=== PATIENT | female | born 2000 | race Caucasian/White ===

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

== ENCOUNTER 2021-01-07 21:30 | Inpatient (IN) | payer MEDICAID, SELFPAY ==
[2021-01-07] VITALS (7 sets, daily range): BP systolic 143–161; BP diastolic 89–92; PULSE 98–114; TEMP 36.9–37.3; O2SAT 93–97; BMI 32.8
[2021-01-07 21:29] LABS: ROM Internal Control Test YES-OK TO RESULT pt. (Internal QC)
[2021-01-07 21:31] LABS: ROM Patient Test POSITIVE (Negative)
[2021-01-07] MEDS: Lactated Ringers 1,000 ML 50 ML IV (22:00)
[2021-01-07 22:25] LABS: Absolute Lymphocyte Count 1.52 X10^3/uL (0.83-4.51); Absolute Neutrophil Count 5.5 X10^3/uL (2.0-7.7); Basophil# 0.02 X10^3/uL; Basophil% 0.3 % (0-1); Eosinophil# 0.28 X10^3/uL; Eosinophils% 3.5 % (0-5); Hemoglobin 11.3 g/dL (12.0-15.0); Lymphocyte # 1.52 X10^3/ul (0.83-4.51); Lymphocyte % 19.1 % (19-41); Mean Corp Hgb Conc 33.2 g/dL (32-36); Mean Corpuscular Hgb 28.2 pg (27.0-32.0); Mean Corpuscular Volume 84.8 fL (81-99); Mean Platelet Vol. 13.3 fl (6.2-12.0); Monocyte# 0.67 X10^3/uL; Monocyte% 8.4 % (0-10); NRBC Flagged by Analyzer 0 % (0-5); Neutrophil # 5.46 X10^3/uL (2.7-7.7); Neutrophil % 68.4 % (47-70); Platelet Count 176 K/mm3 (150-450); RBC Distribution Width SD 43.2 fl (35.1-43.9); Red Blood Count 4.01 M/mm3 (4.2-5.4)
[2021-01-07 22:42] LABS: AST(SGOT) 21 U/L (15-37); Alanine Aminotransfer ALT/SGPT 17 U/L (13-56); Creatinine, Serum 0.66 mg/dL (0.55-1.02); EST Glomerular Filtration Rate 122 mL/min (>60); Est Glom Filt Rate - Afr Amer 148 mL/min (>60); Estimated Creatinine Clearance 123.37 ml/min
[2021-01-07 22:43] LABS: ALB/GLOB Ratio 0.6 RATIO (0.9-2.4); AST(SGOT) 19 U/L (15-37); Alanine Aminotransfer ALT/SGPT 19 U/L (13-56); Albumin, Serum 2.7 g/dL (3.2-5.0); Alkaline Phosphatase 269 U/L (45-117); Anion Gap 7 (5-15); BUN 10 mg/dL (7-18); BUN/Creat Ratio 15.1 RATIO (10-20); Calcium,Total 9.6 mg/dL (8.5-10.1); Chloride 107 mmol/L (98-107); Creatinine, Serum 0.66 mg/dL (0.55-1.02); EST Glomerular Filtration Rate 121 mL/min (>60); Est Glom Filt Rate - Afr Amer 146 mL/min (>60); Estimated Creatinine Clearance 123.37 ml/min; Globulin 4.7 g/dL (2.2-4.2); Glucose 104 mg/dL (74-106); Potassium 3.8 mmol/L (3.5-5.1); Protein, Total 7.4 g/dL (6.4-8.2); Sodium Level 135 mmol/L (136-145)
[2021-01-07] MEDS: Oxytocin 30 units/NS 500 ml 30 UNITS/500 ML IV.SOLN IV (23:21)
[2021-01-08] VITALS (46 sets, daily range): BP systolic 123–162; BP diastolic 61–101; PULSE 85–133; RESP 16–18; TEMP 36.6–37.4; O2SAT 93–100
[2021-01-08] MEDS: Lactated Ringers 500 ML 999 ML IV ×2 (00:03→03:02)
[2021-01-08 00:04] LABS: Protein, Urine (Random) 58.2 mg/dL (<11.9); Protein:Creat Ratio 928 mg/g CRE (0-200)
[2021-01-08] MEDS: fentaNYL-bupivacaine (epidural) 100 ML BAG EPIDURAL (00:41)
[2021-01-08] MEDS: Lactated Ringers 1,000 ML 200 ML IV (06:04)
[2021-01-08] MEDS: Oxytocin 30 units/NS 500 ml 30 UNITS/500 ML IV.SOLN 334 UNITS IV (06:08)
--- NOTE | 2021-01-08 06:20 | PCM.HP.OB ---
HPI - General General Date of Admission: 01/07/21 HPI Narrative DARREL PHILLIPS, is a 20 F who presents at 38w5d. Spontaneous rupture of membranes at home on 01/07/21 at 10am. Originally thought it was mucous plug and then trickle throughout the day. Presented to labor and delivery 01/07/21 at 2045. Maternal Data Information KIARA Calculator Estimated Delivery Date Method Current WG Current Estimate 01/17/21 Manual 38w 5d Final KIARA Source: LMP PFSH PFSH Home Medications PNV [id number]-3-fish oil 1 ea PO DAILY 11/10/18 [History Last Taken 01/07/21 10:00] cephalexin 500 mg PO Q12 #14 capsule 06/04/20 [Rx Last Taken Unknown] Allergy/AdvReac Type Severity Reaction Status Date / Time No Known Allergies Allergy Verified 01/07/21 21:15 Social History Smoking Status: Former smoker History Elective abortions Hx Para 1 Spontaneous abortions Hx # Term Pregnancies Ectopic pregnancies Hx # Pregnancies Multiple births # of living children Vital Signs Vital Signs Vital Signs: 01/07/21 20:54 01/07/21 21:10 01/07/21 22:42 Temperature 99.1 F Temperature Source Temporal Pulse Rate 114 H 98 112 H Blood Pressure 143/89 H 144/92 H 161/89 H BP Systolic 143 144 161 BP Diastolic 89 92 89 Pulse Ox 97 01/07/21 22:58 01/07/21 22:59 01/07/21 23:00 Temperature 98.4 F 98.4 F Temperature Source Temporal Pulse Rate 106 H 106 H 102 H Blood Pressure 143/92 H BP Systolic 143 BP Diastolic 92 Pulse Ox 93 97 01/07/21 23:16 01/08/21 00:18 01/08/21 00:23 Temperature 98.4 F Temperature Source Pulse Rate 100 118 H 121 H Blood Pressure 149/89 H BP Systolic 149 BP Diastolic 89 Pulse Ox 98 98 01/08/21 00:26 01/08/21 00:28 01/08/21 00:30 Temperature Temperature Source Pulse Rate 125 H 116 H 118 H Blood Pressure 162/101 H 158/96 H BP Systolic 162 158 BP Diastolic 101 96 Pulse Ox 93 01/08/21 00:33 01/08/21 00:35 01/08/21 00:38 Temperature Temperature Source Pulse Rate 114 H 102 H 113 H Blood Pressure 162/92 H BP Systolic 162 BP Diastolic 92 Pulse Ox 100 99 01/08/21 00:42 01/08/21 00:43 01/08/21 00:45 Temperature Temperature Source Pulse Rate 96 114 H 109 H Blood Pressure 137/72 H 135/69 H BP Systolic 137 135 BP Diastolic 72 69 Pulse Ox 96 01/08/21 00:48 01/08/21 00:49 01/08/21 00:53 Temperature Temperature Source Pulse Rate 111 H 111 H 110 H Blood Pressure 123/61 H BP Systolic 123 BP Diastolic 61 Pulse Ox 96 97 01/08/21 00:55 01/08/21 00:58 01/08/21 01:01 Temperature Temperature Source Pulse Rate 111 H 110 H 111 H Blood Pressure 126/67 H 125/69 H BP Systolic 126 125 BP Diastolic 67 69 Pulse Ox 97 01/08/21 01:03 01/08/21 01:04 01/08/21 02:06 Temperature 97.9 F Temperature Source Temporal Pulse Rate 110 H 110 H 127 H Blood Pressure 130/70 H 137/79 H BP Systolic 130 137 BP Diastolic 70 79 Pulse Ox 97 01/08/21 02:13 01/08/21 02:18 01/08/21 02:22 Temperature Temperature Source Pulse Rate 104 H 97 100 Blood Pressure 136/79 H 138/73 H 130/70 H BP Systolic 136 138 130 BP Diastolic 79 73 70 Pulse Ox 01/08/21 02:28 01/08/21 03:32 01/08/21 03:33 Temperature 98.2 F Temperature Source Pulse Rate 85 103 H Blood Pressure 126/61 H 128/80 H BP Systolic 126 128 BP Diastolic 61 80 Pulse Ox 01/08/21 05:02 01/08/21 05:03 01/08/21 06:19 Temperature 99.3 F H Temperature Source Pulse Rate 130 H 133 H 126 H Blood Pressure 134/71 H 145/82 H BP Systolic 134 145 BP Diastolic 71 82 Pulse Ox 96 Weight Weight: 197 lb 1.6 oz Body Mass Index (BMI) 32.8 Physical Exam Narrative 10 cm/100%/0 station upon arrival. vertex. Clear fluid Labs Labs Labs: Blood Type A POSITIVE Antibody Screen NEGATIVE Hct 34.0 % (37-47) L Hgb 11.3 g/dL (12.0-15.0) L Rhogam given: No Rubella Immune RPR negative HepB negative HepC negative HIV negative A positive GBS negative GC/CT negative COVID negative Assessment & Plan (1) Teen : (2) Genital warts complicating : (3) PROM (premature rupture of membranes): (4) Preeclampsia: PLAN: 1) Admit to labor and delivery 2) Routine labs 3) BP mildly elevated, preeclampsia labs. PC ratio elevated. 4) PROM at 10am. No contractions upon arrival, pitocin for active management 5) Condyloma present, will cover for delivery 6) GBS and COVID negative 7) collaborative physician and notified of patient status and admission.
--- NOTE | 2021-01-08 06:34 | EX.PCM.OBRPT ---
Assessment & Plan (1) Vaginal delivery: Maternal Data Information KIARA Calculator Estimated Delivery Date Method Current WG Current Estimate 01/17/21 Manual 38w 5d Vaginal Delivery Maternal Presentation Maternal Presentation: Spontaneous Rupture of Membranes Maternal Presentation: PROM on 01/07/21 at 10am, clear fluid. Labor augmentation with Pitocin Operative Information Date of Procedure: 01/08/21 Pre-Operative Diagnosis: PROM Post-Operative Diagnosis: Surgery / Procedure Performed: Spontaneous Vaginal Delivery Type of Anesthesia: Epidural Estimated Blood Loss: 300 ml Time of Delivery: 06:06 Findings Description of Procedure: Progressed to complete dilation with strong urge to push. Epidural for pain management. of viable male over intact perineum. APGARS 8,9. Infant head delivered with body immediately forthcoming. Infant placed on maternal abdomen, strong cry. Mouth and nares suctioned for secretions. Pitocin started for active 3rd stage management. Placenta delivered intact via shutlz, 3 vessel cord with maternal effort. Perineum inspected and revealed intact. Vaginal sweep completed by me. Sponge and instrument count correct. Mom and baby stable, family bonding well. Presentation: DEBO (LOT) Amniotic Membrane Rupture Type: Spontaneous Time of Membrane Rupture: 01/07/21 at 10am Amniotic Fluid Description: Clear Placental Delivery Description: Spontaneous Placenta Disposition: [facility] Cord Vessel Description: 3 Vessels Cord Entanglement: None Infant A Gender: Male (1 minute): 8 (5 minute): 9 Delayed Cord Clamping: Yes Post Vaginal Delivery Medications Given After Delivery: IV Pitocin Episiotomy Description: None Laceration: None Complication Complications: None
[2021-01-08] MEDS: 0.9% Saline Lock 10 ML Syringe IV ×2 (08:40→16:26)
[2021-01-08 17:27] LABS: Hematocrit 34.1 % (37-47); Hemoglobin 11.4 g/dL (12.0-15.0); Mean Corp Hgb Conc 33.4 g/dL (32-36); Mean Corpuscular Hgb 28.5 pg (27.0-32.0); Mean Corpuscular Volume 85.3 fL (81-99); Mean Platelet Vol. 12.9 fl (6.2-12.0); POSITIVE MORPHOLOGY YES; Platelet Count 165 K/mm3 (150-450); RBC Distribution Width CV 14.4 % (11.6-14.6); RBC Distribution Width SD 44.6 fl (35.1-43.9); White Blood Count 14.5 K/mm3 (4.4-11.0)
[2021-01-08 17:36] LABS: Scan Indicated on CBC? Y/N YES- FLAGS NOTED
[2021-01-08] MEDS: Labetalol 200 MG Tablet PO ×2 (17:37→22:53)
[2021-01-08 18:03] LABS: AST(SGOT) 25 U/L (15-37); Alanine Aminotransfer ALT/SGPT 18 U/L (13-56); Creatinine, Serum 0.66 mg/dL (0.55-1.02); EST Glomerular Filtration Rate 122 mL/min (>60); Est Glom Filt Rate - Afr Amer 147 mL/min (>60); Estimated Creatinine Clearance 123.37 ml/min; Uric Acid 5.8 mg/dL (2.6-6.0)
[2021-01-08 18:06] LABS: Differential Comment SCANNED
[2021-01-08] MEDS: Ibuprofen 600 MG Tablet PO (20:52)
[2021-01-08] MEDS: Acetaminophen 500 MG Tablet 1000 MG PO (22:52)
[2021-01-09 03:15] VITALS: BP 131/77; PULSE 84; RESP 16; TEMP 36.2; O2SAT 96
[2021-01-09 05:54] VITALS: PULSE 96; O2SAT 96
[2021-01-09] MEDS: Labetalol 200 MG Tablet PO ×3 (05:55→22:53)
[2021-01-09 06:09] LABS: Hematocrit 31.4 % (37-47); Hemoglobin 10.1 g/dL (12.0-15.0); Mean Corp Hgb Conc 32.2 g/dL (32-36); Mean Corpuscular Hgb 28.2 pg (27.0-32.0); Mean Corpuscular Volume 87.7 fL (81-99); Mean Platelet Vol. 12.8 fl (6.2-12.0); Platelet Count 132 K/mm3 (150-450); RBC Distribution Width CV 14.6 % (11.6-14.6); RBC Distribution Width SD 46.4 fl (35.1-43.9); Red Blood Count 3.58 M/mm3 (4.2-5.4); White Blood Count 8.7 K/mm3 (4.4-11.0)
--- NOTE | 2021-01-09 07:25 | NURSING ---
This RN reviewed all charting by student nurse Anamaria Aguilar.
--- NOTE | 2021-01-09 07:30 | PCM.PN.OB ---
Subjective Subjective Patient seen at bedside. Denies pain. Denies any headache, vision changes or RUQ pain. Ambulating and voiding without difficulty. Lochia decreasing. Bottle feeding. Objective Data Objective Data Vital Signs: Vital Signs Temp Pulse Resp BP Pulse Ox 97.2 F L 96 16 131/77 H 96 01/09/21 03:15 01/09/21 05:54 01/09/21 03:15 01/09/21 03:15 01/09/21 05:54 Oxygen Delivery Method Room Air Weight: 197 lb 1.6 oz Body Mass Index (BMI) 32.8 Intake & Output: Intake and Output for Last 24 Hours 01/07/21 01/08/21 01/09/21 23:59 23:59 23:59 Intake Total 2559.30 / 2559.30 Output Total 550 / 550 Balance / Lab / Micro Data Result Diagrams: 01/09/21 06:00 01/08/21 17:15 Labs: Laboratory Results - last 24 hr 01/08/21 17:15: WBC 14.5 H, RBC 4.00 L, Hgb 11.4 L, Hct 34.1 L, MCV 85.3, MCH 28.5, MCHC 33.4, RDW Std Deviation 44.6 H, RDW Coeff of Gregory 14.4, Plt Count 165, MPV 12.9 H, Differential Comment SCANNED 01/08/21 17:15: Creatinine 0.66, Estim Creat Clear Calc 123.37, Est GFR (MDRD) Af Amer 147, Est GFR (MDRD) Non-Af 122, Uric Acid 5.8, AST 25, ALT 18 01/09/21 06:00: WBC 8.7, RBC 3.58 L, Hgb 10.1 L, Hct 31.4 L, MCV 87.7, MCH 28.2, MCHC 32.2, RDW Std Deviation 46.4 H, RDW Coeff of Gregory 14.6, Plt Count 132 L, MPV 12.8 H Micro: Microbiology 01/07/21 22:42 Nasal Secretion SARS-CoV-2 Antigen (Rapid) - Final ROS Eyes Eyes: Denies blurry vision, change in vision or spots in vision ENT HEENT: Denies dizziness or headache(s) Cardiovascular Cardiovascular: Denies abdominal pain, chest pain or dyspnea Respiratory/Chest Respiratory/Chest: Denies cough, dyspnea, shortness of breath at rest or shortness of breath with exertion Gastrointestinal Gastrointestinal: Denies abdominal pain, diarrhea or vomiting Genitourinary Genitourinary: Denies change in urinary stream, difficulty urinating or dysuria Musculoskeletal Musculoskeletal: Reports none Integumentary Integumentary: Denies rash Neurologic Neurologic: Denies dizziness, headache(s), memory loss or weakness Physical Exam Const alert and no apparent distress General Appearance: cooperative and comfortable Exam Limitations: no limitations HEENT normocephalic Eyes General Eye: normal appearance of both eyes Neck full ROM General: normal visual inspection Chest Chest: symmetrical chest wall rise Resp normal respiratory effort and normal air movement Effort and Inspection: symmetric chest movement Auscultation: clear to auscultation bilaterally Cardio regular rate and regular rhythm GI normal to inspection, nondistended, normoactive bowel sounds Back/Spine normal ROM Extremity full ROM and no calf tenderness General Extremity: normal exam except as noted Skin no rashes or lesions noted Neuro CN's II-XII intact bilaterally Psych mental status grossly normal Assessment & Plan (1) Vaginal delivery: (2) Preeclampsia: QUALIFIERS: Trimester: third trimester Qualified Code(s): O14.93 - Unspecified pre-eclampsia, third trimester PLAN: PPD 1 Pain control Routine care Continues to have elevated blood pressures-patient asymptomatic PIH labs normal Continue Labetalol 200 mg PO TID Anticipate discharge home tomorrow
[2021-01-09 08:00] VITALS: BP 120/65; PULSE 85; RESP 18; TEMP 36.3
--- NOTE | 2021-01-09 14:10 | CASEMGMT ---
Social Work Assessment Labor and Delivery Unit Patient Address: [address] [place] [id number] Phone number: [phone] Date of Referral:01.07.2021 Time of Referral: 2350 Referred By: Elvira Guillory CNM Date of Intervention: 01.09.2021 Time of Intervention: 1410 Reason for Referral: Limited support, 3 year old at home, resources History obtained from: Medical records and mother of baby (MOB) Staci Price Household composition: MOB, father of baby (FOB) Pollo Alfredo, and their older child are in an apartment. Plan to take to this home. Patient's parent/guardian status: MOB is a 20 year old single female, involved with FOB who is a 24 year old male, together for 3 years. MOB denies any form of abuse in this relationship. MOB and FOB now have 2 children together: Beresherron Alfredo, born 11.11.2018; [place] Emile Alfredo, born 01.08.2021. Medical History: MOB is G3. P1 to 2 after delivering Emile. care started at 8 weeks and regular thereafter. Maternal history of genital warts at delivery. Infant delivered at 38.5 weeks, weighing 7 pounds 13 ounces, and apgars 8 and 9 at 1 and 5 minutes of life. Educational Status: 10th grade. No reported issues with reading, writing, or learning comprehension. 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 FOB works at [employer]. Supplies: MOB reports to have all needed infant supplies including crib, bassinet, car seat, clothing, diapers, wipes, bottles, and formula. Childcare/Caregiver(s): MOB and FOB; FOB's grandmother will babysit when parents are working. Transportation: MOB does not have a fence post driver's license. Relies on FOB. Denies any issues at this time, but reports goal to get license in the future. Programs/Agencies Involved: MOB reports to have medical and food assistance through [employer]. Active with WIC. Working with [email or web address]. Goes to a moms group through [facility]. No other agency involvement reported. Declines referrals to [facility] or [facility]. Children Services/Legal Issues: Reports [facility] followed with family for a week or two after daughter was born, due to MOB being a minor, FOB over age, and MOB living away from her parental home. MOB reports the case was closed quickly after agency was able to see that all needs were being met. No reported legal issues. Behavioral Health Issues: Mental Health History: Denies history of depression, anxiety, or mood and anxiety issues. Denies any HI or SI history. Substance Use History: Denies any substance use history. Former smoker. Was vaping but quit after finding out about . Family History: MOB reports her father has history of Bipolar disorder and depression. Drug Screens: Maternal screens negative on 06.07.2020 and 10.25.2020. Family/Social Stressors: No reported stressors. Support Systems: Reports FOB, FOB's grandmother, FOB's cousin Anya (is reported best friend of MOB), MOB's father who lives in [place], and even MOB's mom who lives in [place] are people MOB identifies can be helpful in some way. Depression/Shaken Baby/Safe Sleeping: Educated to topics and provided written information for home going. ASSESSMENT: Met with MOB in room, introducing to self and social work role. MOB holding baby, pleasant, cooperative, good eye contact, and talkative. MOB reports to fee home situation is adequate and that FOB is helpful. Reports to feel support system is also adequate, to have people MOB can call for both practical and emotional support when needed. Reports will have help from family at home going. Reports to feel a connection to the baby and to have necessary supplies. MOB declines additional referrals for parent support, such as [facility] or [facility], but accepted resource lists in case changes mind in the future. Educated to PPD and PPA, risk factors and importance of seeking out help should symptoms arise. MOB denies any worries about mood or anxiety at this time. No voiced on concerns by nursing staff regarding parent/child interactions or bonding. PLAN: Provided resource information for home going. MOB and baby to discharge home when ready. No other services requested or indicated. -ANGELIQUE Ng MSW *This note was generated with [employer] software. It may contain incorrect words, spelling, and punctuation that were not noted in review of the chart prior to signing*
[2021-01-09 14:14] VITALS: BP 140/90; PULSE 90; RESP 15; TEMP 36.4
[2021-01-09] MEDS: Ibuprofen 600 MG Tablet PO (17:32)
[2021-01-09 20:55] VITALS: BP 136/82; PULSE 80; RESP 18; TEMP 36.6
[2021-01-10 02:28] VITALS: BP 102/55; PULSE 104; RESP 18; TEMP 36.4
[2021-01-10] MEDS: Labetalol 200 MG Tablet PO (06:11)
[2021-01-10 08:23] VITALS: BP 124/70; PULSE 85; RESP 16; TEMP 36.2; O2SAT 97
--- NOTE | 2021-01-10 08:38 | PCM.PN.OB ---
Subjective Subjective Feels well & denies complaints Objective Data Objective Data Vital Signs: Vital Signs Temp Pulse Resp BP Pulse Ox 97.2 F L 85 16 124/70 H 97 01/10/21 08:23 01/10/21 08:23 01/10/21 08:23 01/10/21 08:23 01/10/21 08:23 Oxygen Delivery Method Room Air Weight: 197 lb 1.6 oz Body Mass Index (BMI) 32.8 Intake & Output: Intake and Output for Last 24 Hours 01/08/21 01/09/21 01/10/21 23:59 23:59 23:59 Intake Total 2559.30 / 2559.30 Output Total 550 / 550 Balance Lab / Micro Data Result Diagrams: 01/09/21 06:00 01/08/21 17:15 Micro: Microbiology 01/07/21 22:42 Nasal Secretion SARS-CoV-2 Antigen (Rapid) - Final Physical Exam Const alert, oriented x3 and no apparent distress HEENT normocephalic GI soft to palpation, non-tender and non-distended GI Narrative: fundus firm, mid & below umbilicus Extremity normal to inspection and no calf tenderness Assessment & Plan (1) Preeclampsia: QUALIFIERS: Trimester: third trimester Qualified Code(s): O14.93 - Unspecified pre-eclampsia, third trimester COMMENT: PPD#2 PLAN: Preeclampsia - BP's normal to minimally elevated at labetalol 200mg tid. Patient to follow-up Thursday for BP check. Reviewed preE precautions. D/c home
--- NOTE | 2021-01-10 08:40 | PCM.DC ---
Discharge Instructions Diet Discharge Diet: No restrictions Activity Discharge Activity: May Shower May resume sexual activity in: 6 weeks Weight Bearing Status: Weight bearing as tolerated Dressing / Incision Call your doctor if you observe: Fever of 101 or Higher, Coldness, Increased Pain, Change in Color, Inability to urinate, Inability to have a bowel movement, Using more than 1 pad per hour, Shortness of breath, Dizziness, Fainting spells, Chest pain, Increased palpitations (irregular heartbeat), Calf discomfort and Uncontrolled pain Follow Up Care Please Follow Up With: Elvira Guillory CNM When: Follow up Thursday for an in office BP check. Follow up in 2 and 6 weeks for visits. Test Results: Test results from this visit will be discussed in further detail at your follow-up appointment, if applicable. Discharge Plan Admission Admit Date/Time: 01/07/21 21:30 Primary Reason for Your Visit: Vaginal delivery Attending Provider: Elvira Guillory Primary Care Provider: Care Physician,Kassi Primary Discharge Orders/Prescriptions Prescriptions: New labetalol 200 mg Tablet 200 mg PO TID Qty: 60 RF: 0 acetaminophen 500 mg Tablet 1,000 mg PO Q6H PRN PRN (Reason: Pain 1-10 Or Fever) Qty: 0 RF: 0 ibuprofen 600 mg Tablet 600 mg PO Q6H PRN PRN (Reason: Pain Score 1-3) Qty: 0 RF: 0 Continued PNV [id number]-3-fish oil 1 EACH tablet,chewable 1 ea PO DAILY RF: 0 Discontinued cephalexin 500 MG capsule 500 mg PO Q12 Qty: 14 RF: 0 Referrals / Follow Up: Care Physician,No Primary [Primary Care Provider] - Disposition Disposition (needs filled in before D/C Order can be placed): Home, Self Care
--- NOTE | 2021-01-10 14:37 | NURSING ---
OOS student nurse's charting reviewed by instructor and used for clinical and learning purposes only
== END 2021-01-10 10:45 | disposition home or self-care (01) | DRG 560 ==
LOC: WPOUT 21:34 → WP 21:34
PROVIDERS: Advanced Practice Midwife; Admitting Provider Advanced Practice Midwife; Referring Provider Advanced Practice Midwife; Visit Provider Advanced Practice Midwife
DX: O42.90 Premature rupture of membranes, unspecified as to length of time between rupture and onset of labor, unspecified weeks of gestation (principal); Z3A.38 38 weeks gestation of pregnancy; Z37.0 Single live birth; O98.32 Other infections with a predominantly sexual mode of transmission complicating childbirth; A63.0 Anogenital (venereal) warts; O14.94 Unspecified pre-eclampsia, complicating childbirth; Z87.891 Personal history of nicotine dependence
CPT/HCPCS: 59025; 59050; 80053; 82565; 82570; 84112; 84156; 84450; 84460; 84550; 85025; 85027; 86850; 86900; 86901; 87426; 99218; J7120; A4216; G0378

== ENCOUNTER 2021-05-28 13:20 | Emergency (ER) | payer MEDICAID, SELFPAY ==
[2021-05-28 13:21] VITALS: BP 157/90; PULSE 117; RESP 18; TEMP 36.4; O2SAT 99; BMI 27.7
--- NOTE | 2021-05-28 13:31 | US_ITS ---
STUDY: FIRST TRIMESTER OBSTETRICAL ULTRASOUND REASON FOR EXAM: Female, 21 years old . Vaginal bleeding. LMP: 04/15/2021. TECHNIQUE: Transvaginal TECHNICAL QUALITY: Adequate. PRIOR ULTRASOUND: None. FINDINGS: There is no demonstrated intrauterine gestational sac. There is no demonstrated yolk sac. The placenta is non-visualized. There is no demonstrated embryo ( pole). The estimated gestation age (EGA) by LMP is 6 weeks, 1 days. The estimated date of delivery (KIARA) by LMP is 01/20/2022. The uterus measures 8.8 cm x 6.2 cm x 4.1 cm. There is no demonstrated uterine fibroid. The cervix is closed. The right ovary measures 4.1 cm x 1.7 cm x 2.3 cm. There is no right ovarian cyst. There is no visualized right adnexal mass or complex lesion. The left ovary measures 2 cm x 2.1 cm x 2.2 cm. There is no left ovarian cyst. There is no visualized left adnexal mass or complex lesion. There is no fluid in the cul de sac. US/Transvaginal w/Preg US IMPRESSION: No intrauterine gestation is seen. Correlation with beta hCG values recommended. Electronically Signed: Danilo Guevara MD at 14:38 EDT ,
--- NOTE | 2021-05-28 13:34 | ED.VIS.FEGU ---
HPI HPI - Female History of Present Illness Chief Complaint: Vag Bleeding Detail of Chief Complaint: Vaginal bleeding Informant: patient Associated Symptoms Test: Positive Narrative Narrative: Patient presents to the emergency department complaint of vaginal bleeding that started last evening. Patient states that she passed some tissues last evening and thinks she may have had a miscarriage. Patient still having some vaginal bleeding today and describes it as mild like a menstrual period. Patient is G3, P2. Last menstrual period was April 15. Patient had home test that was positive on May 22 x2. Patient denies any dysuria, hematuria, or fever. Patient has not had any care with this . [facility] Medical History Preeclampsia Home Medications NK 05/28/21 [History Last Taken Unknown] Allergy/AdvReac Type Severity Reaction Status Date / Time No Known Allergies Allergy Verified 05/28/21 13:23 Social History Smoking Status: Current every day smoker tobacco type: cigarettes ROS ROS ED Constitutional Constitutional ED: Reports systems reviewed and no addt'l complaints, except as documented; Denies body ache(s), change in weight or chills Eyes Eyes: Denies acute decrease in peripheral vision, change in vision, double vision or loss of vision ENT ENT ED: Reports none; Denies ear pain, lip swelling, loss taste/smell, neck pain, otalgia or sore throat Cardiovascular Cardiovascular: Reports none; Denies abdominal pain, chest pain with activity, leg edema, lightheadedness, palpitations, rapid heart rate or syncope Respiratory/Chest Respiratory/Chest: Reports none; Denies change in mental status, dry cough, dyspnea, hemoptysis, shortness of breath at rest or shortness of breath with exertion Gastrointestinal Gastrointestinal: Reports none; Denies abdominal pain, change in stool character, diarrhea, hematemesis, hematochezia, melena, rectal bleeding or vomiting Genitourinary Genitourinary ED: Reports none and other Details: Vaginal bleeding ; Denies abdominal discomfort, anuria, dysuria, genital pain or polyuria Musculoskeletal Musculoskeletal: Reports none; Denies arthralgias, back pain, difficulty walking, extremity pain, muscle weakness or myalgias Integumentary Reports none; Denies abscess or rash Neurologic Neurologic: Reports none; Denies abnormal gait, confusion, focal weakness, frequent falls, headache(s), loss of vision, numbness, paresthesias, radicular pain, vertigo or weakness Psychiatric Psychiatric: Reports systems reviewed and no addt'l complaints, except as documented and none; Denies behavioral changes, confusion, difficulty concentrating, hallucinations, suicidal ideation, tactile hallucinations or visual hallucinations Endocrine Endocrinology: Denies none, cold intolerance, excessive sweating, fatigue or heat intolerance Hematologic/Lymphatic Hematologic/Lymphatic: Reports none; Denies anemia, easy bleeding or easy bruising Allergic/Immunologic Allergic/Immunologic ED: Denies as per HPI, none, lip swelling, mouth swelling, throat swelling, tongue swelling or hives EXAM Physical Exam Const Vital Signs: 05/28/21 13:21 Temperature 97.5 F L Temperature Source Temporal Pulse Rate 117 H Respiratory Rate 18 Blood Pressure 157/90 H Blood Pressure Mean 112 Pulse Ox 99 Oxygen Delivery Method Room Air Positive well nourished and well developed General Appearance ED: well developed and NAD HEENT Reports TM's clear and moist mucous membranes normocephalic and atraumatic; Negative for trauma or tenderness Tympanic Membrane ED: Yes TM's clear Eyes PERRL and EOMs intact bilaterally General Eye ED: Negative for pale conjunctiva or scleral icterus Neck no lymphadenopathy, supple and no JVD General: Negative for tenderness Chest Wall inspection of chest normal and palpation of chest normal Chest: Negative for tenderness Resp normal respiratory effort and clear to auscultation bilaterally Effort and Inspection: Negative for respiratory distress or pain with movement Auscultation: Negative for rhonchi, wheezes or diminished lung sounds Cardio regular rate, regular rhythm, S1 normal heart sound, S2 normal heart sound and no murmurs Rate: tachycardic Peripheral Pulses: pulses 2+ throughout GI normal to inspection, nondistended, normoactive bowel sounds, soft to palpation, non-tender, non-distended and no masses GI Narrative: Normoactive bowel sounds. No tenderness on exam of the abdomen or pelvis. There is no rebound, rigidity, or peritoneal signs. No masses palpated. Back/Spine no CVA tenderness and no thoracic nor lumbar tenderness Extremity normal to inspection General Extremety ED: Negative for edema General Extremity: Negative for edema Neuro oriented x3, CN's II-XII intact bilaterally, no sensory deficits noted and gait normal Sensorium / Orientation: awake, alert, oriented to person, oriented to place and oriented to time Motor Exam: strength 5/5 throughout and strength abnormal Psych mental status grossly normal Skin no rashes or lesions noted and no wounds MDM MDM MDM Narrative Medical decision making narrative: IV line established on arrival. Patient's quant is only 46. Blood type is a positive. Patient had a pelvic ultrasound that showed no evidence of intrauterine or any acute disease process. At this point I suspect likely patient miscarrying. She did pass some tissue yesterday at home. I will discussed with BOAT DESIGNER on-call to ensure close follow-up and repeat quant in 2 days. Patient advised to return if persistent heavy bleeding, severe abdominal pain, or condition should worsen anyway. Lab Data Attestation: I reviewed the patient's lab results. Labs: Laboratory Results - last 24 hr 05/28/21 05/28/21 05/28/21 13:45 13:45 13:45 WBC 6.9 RBC 4.89 Hgb 14.3 Hct 42.5 MCV 86.9 MCH 29.2 MCHC 33.6 RDW Std Deviation 42.4 RDW Coeff of Gregory 13.4 Plt Count 170 MPV 12.7 H Immature Gran % (Auto) 0.100 Neut % (Auto) 63.7 Lymph % (Auto) 22.6 [place] % (Auto) 7.1 Eos % (Auto) 5.8 H Baso % (Auto) 0.7 Absolute Neuts (auto) 4.4 Absolute Lymphs (auto) 1.56 Nucleated RBC % 0 HCG, Quant 46 H Blood Type A POSITIVE Radiography Diagnostic Testing: Clinical Impression(s) from Imaging Studies Obstetrics Ultrasound 05/28/21 13:31 IMPRESSION: No intrauterine gestation is seen. Correlation with beta hCG values recommended. Electronically Signed: Danilo Guevara MD at 14:38 EDT , Discharge Plan Triage Chief Complaint: Vag Bleeding ED Provider: Gaetano Boyer Dx/Rx/DC Orders Instructions: ED Possible Miscarriage ... Prescriptions: No Action NK RF: 0 Primary Care Provider: Care Physician,No Primary Referrals: Berlin Madison MD [STAFF PHYSICIAN] - 2 Days Care Physician,No Primary [Primary Care Provider] - Disposition Disposition: Home, Self Care
[2021-05-28] MEDS: 0.9% Normal Saline 1,000 ML 1000 ML IV (13:48)
[2021-05-28 14:01] LABS: Absolute Lymphocyte Count 1.56 X10^3/uL (0.83-4.51); Absolute Neutrophil Count 4.4 X10^3/uL (2.0-7.7); Basophil# 0.05 X10^3/uL; Basophil% 0.7 % (0-1); Eosinophils% 5.8 % (0-5); Hematocrit 42.5 % (37-47); Hemoglobin 14.3 g/dL (12.0-15.0); Lymphocyte # 1.56 X10^3/ul (0.83-4.51); Lymphocyte % 22.6 % (19-41); Mean Corp Hgb Conc 33.6 g/dL (32-36); Mean Corpuscular Hgb 29.2 pg (27.0-32.0); Mean Corpuscular Volume 86.9 fL (81-99); Mean Platelet Vol. 12.7 fl (6.2-12.0); Monocyte# 0.49 X10^3/uL; Monocyte% 7.1 % (0-10); NRBC Flagged by Analyzer 0 % (0-5); Neutrophil % 63.7 % (47-70); Platelet Count 170 K/mm3 (150-450); RBC Distribution Width CV 13.4 % (11.6-14.6); RBC Distribution Width SD 42.4 fl (35.1-43.9); Red Blood Count 4.89 M/mm3 (4.2-5.4); White Blood Count 6.9 K/mm3 (4.4-11.0)
[2021-05-28 14:31] LABS: hCG Titer Quant., Serum 46 mIU/mL (1-3)
[2021-05-28 15:04] VITALS: BP 117/72; PULSE 77; RESP 14; O2SAT 98
== END 2021-05-28 15:05 | disposition home or self-care (01) ==
PROVIDERS: Emergency Provider Emergency Medicine; Visit Provider Emergency Medicine
DX: N93.9 Abnormal uterine and vaginal bleeding, unspecified (principal); F17.210 Nicotine dependence, cigarettes, uncomplicated
CPT/HCPCS: 76817; 84702; 85025; 86900; 86901; 96360; 99283; J7030; A4216

== ENCOUNTER 2022-02-10 20:43 | Outpatient (CLI) | payer MEDICAID, SELFPAY ==
[2022-02-10 20:51] VITALS: BMI 28.4
[2022-02-10 20:52] VITALS: BP 143/95; PULSE 116; TEMP 37.3; O2SAT 98
[2022-02-10 21:01] VITALS: O2SAT 97
[2022-02-10 21:02] VITALS: PULSE 104
[2022-02-10 21:49] LABS: Absolute Lymphocyte Count 3.15 X10^3/uL (0.83-4.51); Absolute Neutrophil Count 8.3 X10^3/uL (2.0-7.7); Basophil# 0.03 X10^3/uL; Basophil% 0.2 % (0-1); Eosinophil# 0.31 X10^3/uL; Eosinophils% 2.5 % (0-5); Hematocrit 39.8 % (37-47); Hemoglobin 13.2 g/dL (12.0-15.0); Lymphocyte # 3.15 X10^3/ul (0.83-4.51); Lymphocyte % 25.2 % (19-41); Mean Corp Hgb Conc 33.2 g/dL (32-36); Mean Corpuscular Hgb 29.5 pg (27.0-32.0); Monocyte# 0.66 X10^3/uL; Monocyte% 5.3 % (0-10); NRBC Flagged by Analyzer 0 % (0-5); Neutrophil # 8.25 X10^3/uL (2.7-7.7); Neutrophil % 66.2 % (47-70); Platelet Count 278 K/mm3 (150-450); RBC Distribution Width CV 12.3 % (11.6-14.6); RBC Distribution Width SD 40.7 fl (35.1-43.9); Red Blood Count 4.47 M/mm3 (4.2-5.4); White Blood Count 12.5 K/mm3 (4.4-11.0)
[2022-02-10 22:00] LABS: Partial Thromboplast Time 25.1 Seconds (24.1-36.2)
[2022-02-10 22:13] LABS: Fibrinogen 516 mg/dl (203-444); Prothrombin Time (Protime)PT. 13.3 SECONDS (11.7-14.9)
[2022-02-10 22:22] LABS: ALB/GLOB Ratio 0.7 RATIO (0.9-2.4); AST(SGOT) 18 U/L (15-37); Alanine Aminotransfer ALT/SGPT 22 U/L (13-56); Albumin, Serum 3.3 g/dL (3.2-5.0); Alkaline Phosphatase 110 U/L (45-117); Amylase 67 U/L (25-115); Anion Gap 5 (5-15); BUN 11 mg/dL (7-18); BUN/Creat Ratio 12.7 RATIO (10-20); Calcium,Total 9.9 mg/dL (8.5-10.1); Chloride 106 mmol/L (98-107); Creatinine, Serum 0.87 mg/dL (0.55-1.02); EST Glomerular Filtration Rate 88 mL/min (>60); Est Glom Filt Rate - Afr Amer 106 mL/min (>60); Estimated Creatinine Clearance 92.82 ml/min; Glucose 98 mg/dL (74-106); Lipase 131 U/L (73-393); Potassium 3.6 mmol/L (3.5-5.1); Protein, Total 8.3 g/dL (6.4-8.2); Sodium Level 137 mmol/L (136-145)
--- NOTE | 2022-02-12 12:05 | OB.TRI.NOTE ---
HPI - General General Date of Admission: 02/10/22 Date of Service: 02/10/22 Chief Complaint: abd pain in Maternal Data Information KIARA Calculator Estimated Delivery Date Method Current WG Current Estimate 01/17/21 Manual 95w 6d [facility] Medical History (Updated 02/12/22 @ 12:[address] Alma Galan MD) Preeclampsia Home Medications aspirin 81 mg chewable tablet 81 mg PO DAILY see provider 02/10/22 [History Last Taken 02/10/22 08:00] Allergy/AdvReac Type Severity Reaction Status Date / Time No Known Allergies Allergy Verified 02/10/22 20:53 Social History Smoking Status: Current every day smoker tobacco type: cigarettes History Elective abortions Hx Para 1 Spontaneous abortions Hx # Term Pregnancies Ectopic pregnancies Hx # Pregnancies Multiple births # of living children NST FHR Rate Baby A Baseline: 140 Variability:: Moderate Accelerations:: 10 x 10 Decelerations:: None NST Reactive:: Appropriate for gestational age FHR Category:: Category I Uterine Activity:: quiet Assessment & Plan (1) High risk multigravida in third trimester: PLAN: No evidence of Pres in labor. Suspect pain is musculoskeletal or GI in etiology. Follow-up in the office as scheduled or as needed. May use heat, ice, Tylenol or antacids as needed. No evidence of preeclampsia. If recurs may need gallbladder evaluation as outpatient (2) Abdominal pain affecting : (3) 29 weeks gestation of :
== END 2022-02-10 22:32 | disposition home or self-care (01) ==
LOC: WPOUT 20:50 → WP 20:51
PROVIDERS: Visit Provider Obstetrics & Gynecology
DX: O99.891 Other specified diseases and conditions complicating pregnancy (principal); O09.623 Supervision of young multigravida, third trimester; O99.333 Smoking (tobacco) complicating pregnancy, third trimester; R10.9 Unspecified abdominal pain; F17.210 Nicotine dependence, cigarettes, uncomplicated; Z79.82 Long term (current) use of aspirin
CPT/HCPCS: 36415; 59025; 59050; 80053; 82150; 83690; 85025; 85384; 85610; 85730; 99218; G0378

== ENCOUNTER 2022-03-27 03:00 | Outpatient (CLI) | payer MEDICAID, SELFPAY ==
[2022-03-27 03:08] VITALS: BP 140/78; PULSE 105; TEMP 37.2
[2022-03-27 03:18] VITALS: BMI 28.3
[2022-03-27 03:24] VITALS: BP 127/76; PULSE 100
[2022-03-27 03:38] VITALS: BP 131/78; PULSE 90
--- NOTE | 2022-03-27 03:50 | OB.TRI.NOTE ---
HPI - General General Date of Service: 03/27/22 Chief Complaint: contractions HPI Narrative DARREL PHILLIPS, is a 21 F @ 35.4 weeks who presents c.o contraction since 2:20 am- arrived by ambulance. denies VB, LOF, reports good FM. pt reports since arriving contractions have improved. Maternal Data Information KIARA Calculator Estimated Delivery Date Method Current WG Current Estimate 01/17/21 Manual 102w 0d PFSH PFSH Medical History (Updated 03/27/22 @ 03:[address] Yumiko Webb MD) Preeclampsia Home Medications aspirin 81 mg chewable tablet 81 mg PO DAILY see provider 02/10/22 [History Last Taken 03/25/22 12:30 1 tab] Allergy/AdvReac Type Severity Reaction Status Date / Time No Known Allergies Allergy Verified 03/27/22 03:24 Social History Smoking Status: Current every day smoker tobacco type: cigarettes History Elective abortions Hx Para 1 Spontaneous abortions Hx # Term Pregnancies Ectopic pregnancies Hx # Pregnancies Multiple births # of living children Physical Exam Narrative abd: soft, gravid, non tender Const alert and oriented x3 NST FHR Rate Baby A Baseline: 135 Variability:: Moderate Accelerations:: 15 x 15 NST Reactive:: Yes FHR Category:: Category I Uterine Activity:: irregular Assessment & Plan (1) 35 weeks gestation of : (2) contractions: PLAN: Plan G5P 2 @ 35 weeks with contractions 1) urine to be sent to r/o UTI 2) signs of labor and when to return to L&D reviewed 3) Cervical exam by RN performed- closed 4) will dc home after urine results
[2022-03-27 04:00] VITALS: BP 130/60; PULSE 96
[2022-03-27 04:07] LABS: Color, Urine Yellow (Yellow); Glucose, Dipstick Normal (Normal); Ketone-Dipstick Negative (Negative); Leukocyte Esterase-Dipstick Negative /ul (Negative); Nitrite-Dipstick Negative (Negative); Occult Blood-Urine Negative /ul (Negative); Protein-Dipstick Negative (Negative); Specific Gravity, Urine 1.015 (1.002-1.030); Urine Bilirubin Dipstick Negative (Negative); Urine Clarity Clear (Clear); Urine Urobilinogen Normal (Normal)
[2022-03-27 04:15] VITALS: BP 118/58; PULSE 88
[2022-03-27 12:46] VITALS: BP 133/82; PULSE 69
== END 2022-03-27 04:55 | disposition home or self-care (01) ==
LOC: WPOUT 03:04 → WP 03:05
PROVIDERS: Visit Provider Obstetrics & Gynecology
DX: O09.893 Supervision of other high risk pregnancies, third trimester (principal); O99.333 Smoking (tobacco) complicating pregnancy, third trimester; Z79.82 Long term (current) use of aspirin; Z3A.35 35 weeks gestation of pregnancy; F17.210 Nicotine dependence, cigarettes, uncomplicated
CPT/HCPCS: 59025; 59050; 81002; 87086; 87088; 99221; G0378

== ENCOUNTER 2022-04-22 07:10 | Inpatient (IN) | payer MEDICAID, SELFPAY ==
[2022-04-22] VITALS (33 sets, daily range): BP systolic 101–143; BP diastolic 54–91; PULSE 84–170; TEMP 36.8–37.7; O2SAT 97–100; BMI 31.0
--- NOTE | 2022-04-22 08:01 | PCM.HP.OB ---
HPI - General General Date of Admission: 04/22/22 HPI Narrative DARREL PHILLIPS, is a 21 F who presents at 39w2d for elective IOL. . Yesterday presented to office for insertion of Dilapan S outpatient cervical ripening. Contractions overnight but not regular and able to sleep. complicated by history of preeclampsia and bacteriuria in . Maternal Data Information KIARA Calculator Estimated Delivery Date Method Current WG Current Estimate 04/27/22 Manual 39w 3d 39w2d upon admission [facility] Medical History (Updated 04/23/22 @ 08:23 by Elvira Guillory CNM) Asthma Preeclampsia Home Medications acetaminophen 500 mg tablet 1,000 mg PO Q6H PRN PRN Pain 1-10 Or Fever #0 tabs 04/23/22 [Rx Last Taken Unknown] ibuprofen 600 mg tablet 600 mg PO Q6H PRN PRN Pain Score 1-3 #30 tabs 04/23/22 [Rx Last Taken Unknown] Allergy/AdvReac Type Severity Reaction Status Date / Time No Known Allergies Allergy Verified 04/22/22 07:22 Social History Smoking Status: Current some day smoker tobacco type: cigarettes History Elective abortions Hx Para 2 Spontaneous abortions Hx # Term Pregnancies Ectopic pregnancies Hx # Pregnancies Multiple births # of living children NST FHR Rate Baby A Baseline: 145 Variability:: Moderate Accelerations:: 15 x 15 Decelerations:: None FHR Category:: Category I Uterine Activity:: Irregular Vital Signs Vital Signs Vital Signs: 04/22/22 07:40 04/22/22 07:40 04/22/22 07:40 Temperature Temperature Source Temporal Pulse Rate 92 Blood Pressure 136/83 H BP Systolic 136 BP Diastolic 83 04/22/22 07:40 Temperature 99.1 F Temperature Source Pulse Rate Blood Pressure BP Systolic BP Diastolic Weight Weight: 186 lb 11.704 oz Body Mass Index (BMI) 31.0 Physical Exam Narrative 5 dilapan-S rods removed without difficulty in one piece all together. Patient tolerated well. Const alert and oriented x3 General Appearance: cooperative Orientation / Consciousness: awake, oriented to person, oriented to place and oriented to time Exam Limitations: no limitations HEENT normocephalic Head and Scalp: normal to inspection, normocephalic and atraumatic Face and Sinus: normal facial exam Eyes General Eye: normal appearance of both eyes Neck full ROM Chest Chest: symmetrical chest wall rise Resp normal respiratory effort and normal air movement Auscultation: clear to auscultation bilaterally Cardio regular rate, regular rhythm, S1 normal heart sound, S2 normal heart sound, no murmurs, no rub, no gallops and no clicks GI normal to inspection, nondistended, normoactive bowel sounds and non-tender appearance of the vagina normal Narrative: 4.5cm/70%/-2 Bladder / Kidney Exam: no CVA tenderness Back/Spine normal ROM Extremity normal to inspection and full ROM Skin no rashes or lesions noted Neuro oriented x3, CN's II-XII intact bilaterally and moves all extremities Sensorium / Orientation: awake, alert and oriented to person Motor Exam: clonus absent Deep Tendon Reflexes: Rt Patellar (L4): 2+ and Lt Patellar (L4): 2+ Labs Labs Labs: Blood Type A POSITIVE Antibody Screen NEGATIVE Hct 34.0 % (37-47) L Hgb 11.5 g/dL (12.0-15.0) L Obstetrics US Rhogam given: No GBS negative HIV negative HBsAG negative Hep C negative RPR negative Rubella Immune A positive GC/CT negative Assessment & Plan (1) Encounter for elective induction of labor: (2) 39 weeks gestation of : (3) Genital warts: PLAN: Plan 1) Admit to labor and delivery 2) Routine labs 3) Continuous EFM 4) Epidural for pain management 5) Outpatient cervical ripening with Dilapan S, all 5 rods moved without difficulty 6) collaborative physician
[2022-04-22] MEDS: Lactated Ringers 1,000 ML 100 ML IV ×2 (08:10→13:46)
[2022-04-22 08:21] LABS: Absolute Lymphocyte Count 1.84 X10^3/uL (0.83-4.51); Absolute Neutrophil Count 9.2 X10^3/uL (2.0-7.7); Basophil# 0.05 X10^3/uL; Basophil% 0.4 % (0-1); Eosinophils% 3.3 % (0-5); Hemoglobin 11.5 g/dL (12.0-15.0); Lymphocyte # 1.84 X10^3/ul (0.83-4.51); Lymphocyte % 15.1 % (19-41); Mean Corp Hgb Conc 33.8 g/dL (32-36); Mean Corpuscular Hgb 28.1 pg (27.0-32.0); Mean Corpuscular Volume 83.1 fL (81-99); Mean Platelet Vol. 11.9 fl (6.2-12.0); Monocyte# 0.63 X10^3/uL; Monocyte% 5.2 % (0-10); NRBC Flagged by Analyzer 0 % (0-5); Neutrophil # 9.22 X10^3/uL (2.7-7.7); Neutrophil % 75.5 % (47-70); Platelet Count 223 K/mm3 (150-450); RBC Distribution Width CV 13.6 % (11.6-14.6); RBC Distribution Width SD 40.7 fl (35.1-43.9); Red Blood Count 4.09 M/mm3 (4.2-5.4); White Blood Count 12.2 K/mm3 (4.4-11.0)
[2022-04-22] MEDS: Oxytocin 15 Units/NS 250ml 15 UNITS/250 ML IV.SOLN 2 UNITS IV (08:44)
[2022-04-22] MEDS: LACTATED RINGERS 500 ML 999 ML IV (12:30)
[2022-04-22] MEDS: fentaNYL-bupivacaine (epidural) 100 ML BAG EPIDURAL (13:46)
--- NOTE | 2022-04-22 18:04 | EX.PCM.OBRPT ---
Assessment & Plan (1) Vaginal delivery: Maternal Data Information KIARA Calculator Estimated Delivery Date Method Current WG Current Estimate 04/27/22 Manual 39w 2d Vaginal Delivery Maternal Presentation Maternal Presentation: Elective Induction Type of Induction: - (cervical ripening with DilapanS outpatient. Pitocin for Induction) Operative Information Date of Procedure: 04/22/22 Pre-Operative Diagnosis: Elective Induction of Labor Post-Operative Diagnosis: Surgery / Procedure Performed: Spontaneous Vaginal Delivery Type of Anesthesia: Epidural Estimated Blood Loss: 200 ml Time of Delivery: 17:46 Findings Description of Procedure: Progressed to complete with urge to push. Epidural for pain management. of viable female infant over intact perineum. APGARS 8,9 respectively. Infant head delivered with body immediately forthcoming. Placed on maternal abdomen, strong cry. Mouth and nares suctioned for secretions. Pitocin started for active 3rd stage management. Cord doubly clamped and cut by FOB after pulsations ceased, delayed cord clamping. Placenta delivered intact via stevie, 3 vessel cord intact. Perineum inspected and intact. Fundus firm and hemostasis achieved. EBL 200ml. Mom and baby stable, planning to breastfeed. Family bonding well. notified of delivery. Presentation: Vertex and JOSH Amniotic Membrane Rupture Type: Artificial Amniotic Fluid Description: Clear Placental Delivery Description: Expressed Placenta Disposition: [facility] Cord Vessel Description: 3 Vessels Cord Entanglement: None Infant A Gender: Female (1 minute): 8 (5 minute): 9 Delayed Cord Clamping: Yes Post Vaginal Delivery Medications Given After Delivery: IV Pitocin Episiotomy Description: None Laceration: None Complication Complications: None
[2022-04-23 00:50] VITALS: BP 114/55; PULSE 107; RESP 18
[2022-04-23] MEDS: Ibuprofen 600 MG Tablet PO ×2 (03:35→09:17)
[2022-04-23 05:06] VITALS: BP 132/99; PULSE 91; RESP 18
[2022-04-23] MEDS: Acetaminophen 500 MG Tablet 1000 MG PO (05:10)
--- NOTE | 2022-04-23 08:02 | PN.OBGYN_ITS ---
Subjective Subjective Doing well per patient and nursing staff. Ambulating and taking PO without difficulty. Voiding and passing flatus. Pain controlled. , services for assistance. Denies headache, visual changes, chest pain, shortness of breath, leg pain or increased bleeding. Lochia normal. Objective Data Objective Data Vital Signs: Vital Signs Temp Pulse Resp BP Pulse Ox O2 Del Method 99.3 F H 91 18 132/99 H 100 Room Air 04/22/22 19:14 04/23/22 05:06 04/23/22 05:06 04/23/22 05:06 04/22/22 15:59 04/23/22 05:06 Oxygen Delivery Method Room Air Weight: 186 lb 11.704 oz Body Mass Index (BMI) 31.0 Intake & Output: Intake and Output for Last 24 Hours 04/21/22 04/22/22 04/23/22 23:59 23:59 23:59 Intake Total 1722.33 / 1722.33 Output Total 700 / 700 600 / 600 Balance 1022.33 / 1022.33 -600 / -600 Lab / Micro Data Result Diagrams: 04/22/22 08:10 Labs: Laboratory Results - last 24 hr 04/22/22 08:10: WBC 12.2 H, RBC 4.09 L, Hgb 11.5 L, Hct 34.0 L, MCV 83.1, MCH 28.1, MCHC 33.8, RDW Std Deviation 40.7, RDW Coeff of Gregory 13.6, Plt Count 223, M PV 11.9, Immature Gran % (Auto) 0.500, Neut % (Auto) 75.5 H, Lymph % (Auto) 15.1 L, [place] % (Auto) 5.2, Eos % (Auto) 3.3, Baso % (Auto) 0.4, Absolute Neuts (auto) 9.2 H, Absolute Lymphs (auto) 1.84, Nucleated RBC % 0 04/22/22 08:10: Blood Type A POSITIVE, Antibody Screen NEGATIVE ROS Constitutional Constitutional: Reports systems reviewed and no addt'l complaints, except as documented; Denies headache(s) Eyes Eyes: Denies acute decrease in peripheral vision, blurry vision or change in vision ENT HEENT: Reports systems reviewed and no addt'l complaints, except as documented Cardiovascular Cardiovascular: Denies chest pain or dizziness Respiratory/Chest Respiratory/Chest: Denies cough, dyspnea, dyspnea on exertion, shortness of breath at rest or shortness of breath with exertion Gastrointestinal Gastrointestinal: Denies abdominal pain, diarrhea, nausea or vomiting Genitourinary Genitourinary: Denies abdominal discomfort Musculoskeletal Musculoskeletal: Denies limited range of motion Integumentary Integumentary: Reports systems reviewed and no addt'l complaints, except as documented Neurologic Neurologic: Reports systems reviewed and no addt'l complaints, except as documented Psychiatric Psychiatric: Reports systems reviewed and no addt'l complaints, except as documented Endocrine Endocrinology: Reports systems reviewed and no addt'l complaints, except as documented Hematologic/Lymphatic Hematologic/Lymphatic: Reports systems reviewed and no addt'l complaints, except as documented Allergic/Immunologic Allergic/Immunologic: Reports systems reviewed and no addt'l complaints, except as documented Physical Exam Const alert and oriented x3 General Appearance: cooperative Orientation / Consciousness: awake, oriented to person, oriented to place and oriented to time Exam Limitations: no limitations HEENT normocephalic Head and Scalp: normal to inspection, normocephalic and atraumatic Face and Sinus: normal facial exam Eyes General Eye: normal appearance of both eyes Neck full ROM Chest Chest: symmetrical chest wall rise Resp normal respiratory effort and normal air movement Auscultation: clear to auscultation bilaterally Cardio regular rate, regular rhythm, S1 normal heart sound, S2 normal heart sound, no murmurs, no rub, no gallops and no clicks GI normal to inspection, nondistended, normoactive bowel sounds and non-tender appearance of the vagina normal Narrative: Fundus firm 2 below U Bladder / Kidney Exam: no CVA tenderness Back/Spine normal ROM Extremity normal to inspection and full ROM Skin no rashes or lesions noted Neuro oriented x3, CN's II-XII intact bilaterally and moves all extremities Sensorium / Orientation: awake, alert and oriented to person Motor Exam: clonus absent Deep Tendon Reflexes: Rt Patellar (L4): 2+ and Lt Patellar (L4): 2+ Assessment & Plan (1) Vaginal delivery: PLAN: Plan 1) Routine PP care 2) Pain management 3) Vitals stable 4) Would like D/C home today 5) Follow up in 2 weeks and 6 weeks
--- NOTE | 2022-04-23 08:10 | DS.PCM_ITS ---
Providers Date of Admission: 04/22/22 Primary Care Physician: Kassi Primary Care Phys Reason For Visit: VAG DELIVERY Diagnosis Discharge Diagnosis (1) Vaginal delivery: Status: Acute Code(s): O80 - Encounter for full-term uncomplicated delivery Plan 1) Routine PP care 2) Pain management 3) Vitals stable 4) Would like D/C home today 5) Follow up in 2 weeks and 6 weeks Medications at Discharge Home Medications acetaminophen 500 mg tablet 1,000 mg PO Q6H PRN PRN Pain 1-10 Or Fever #0 tabs 04/23/22 ibuprofen 600 mg tablet 600 mg PO Q6H PRN PRN Pain Score 1-3 #30 tabs 04/23/22 Weight / BMI Weight Weight: 186 lb 11.704 oz Body Mass Index (BMI) 31.0 ABG / Lab / Microbiology Data Result Diagrams: 04/22/22 08:10 Laboratory: Laboratory Results - last 24 hr 04/22/22 08:10: WBC 12.2 H, RBC 4.09 L, Hgb 11.5 L, Hct 34.0 L, MCV 83.1, MCH 28.1, MCHC 33.8, RDW Std Deviation 40.7, RDW Coeff of Gregory 13.6, Plt Count 223, MPV 11.9, Immature Gran % (Auto) 0.500, Neut % (Auto) 75.5 H, Lymph % (Auto) 15.1 L, [place] % (Auto) 5.2, Eos % (Auto) 3.3, Baso % (Auto) 0.4, Absolute Neuts (auto) 9.2 H, Absolute Lymphs (auto) 1.84, Nucleated RBC % 0 04/22/22 08:10: Blood Type A POSITIVE, Antibody Screen NEGATIVE Meaningful Use Info Meaningful Use Diagnoses (Choose all that apply): None applicable Discharge Plan Admission Admit Date/Time: 04/22/22 07:10 Primary Reason for Your Visit: vaginal delivery Attending Provider: Elvira Guillory Primary Care Provider: Care Physician,No Primary Instructions Patient Instructions: After a Vaginal Discharge Orders/Prescriptions Prescriptions: New acetaminophen 500 mg Tablet 1,000 mg PO Q6H PRN PRN (Reason: Pain 1-10 Or Fever) Qty: 0 0RF ibuprofen 600 mg Tablet 600 mg PO Q6H PRN PRN (Reason: Pain Score 1-3) Qty: 30 0RF Referrals / Follow Up: Care Physician,No Primary [Primary Care Provider] - Disposition Disposition (needs filled in before D/C Order can be placed): Home, Self Care
[2022-04-23 08:17] VITALS: BP 120/66; PULSE 93; RESP 14; TEMP 36.7; O2SAT 97
[2022-04-23 11:12] VITALS: BP 124/74; PULSE 82; RESP 14; TEMP 36.9; O2SAT 96
[2022-04-23 15:40] VITALS: BP 132/84; PULSE 76; RESP 16; TEMP 36.8; O2SAT 97
== END 2022-04-23 19:20 | disposition home or self-care (01) | DRG 560 ==
PROVIDERS: Admitting Provider Advanced Practice Midwife; Referring Provider Advanced Practice Midwife; Visit Provider Advanced Practice Midwife
DX: O99.334 Smoking (tobacco) complicating childbirth (principal); Z37.0 Single live birth; O98.32 Other infections with a predominantly sexual mode of transmission complicating childbirth; F17.210 Nicotine dependence, cigarettes, uncomplicated; Z3A.39 39 weeks gestation of pregnancy; A63.0 Anogenital (venereal) warts
CPT/HCPCS: 59025; 59050; 85025; 86850; 86900; 86901; 99221; J7120; G0378

== ENCOUNTER 2022-05-27 13:02 | Emergency (ER) | payer MEDICAID, SELFPAY ==
[2022-05-27 13:03] VITALS: BP 131/66; PULSE 64; RESP 18; TEMP 36.3; O2SAT 100; BMI 29.7
--- NOTE | 2022-05-27 13:18 | RAD_ITS ---
STUDY: X-RAY CHEST REASON FOR EXAM: Female, 22 years old. cp TECHNIQUE: Single AP portable view of the chest. COMPARISON: None. FINDINGS: EKG electrodes are seen. The lungs are clear and expanded. There is no demonstrated pleural abnormality. Normal size heart. Normal mediastinum and clare. Normal visualized pulmonary arteries. Normal visualized aortic arch and descending thoracic aorta. Normal visualized thoracic spine. Normal visualized ribs, clavicles, and shoulders. There is no demonstrated abnormality of the visualized soft tissue structures of the upper abdomen. RAD/Chest 1 View (Portable) IMPRESSION: Normal x-ray examination of the chest. Electronically Signed: Danilo Guevara MD at 14:03 EDT ,
--- NOTE | 2022-05-27 13:20 | EDS_ITS ---
HPI History of Present Illness Chief Complaint: Chest Pain Narrative Narrative: Chief complaint says chest pain, patient has more like epigastric pain that started a little over an hour ago. She has no pleuritic component, she is no difficulty breathing. No back pain or tearing sensation. She has no recent fevers or chills. No leg pain or calf pain, no lower extremity edema. [facility] Medical History (Updated 05/27/22 @ 13:[address] Barrett Byrne MD) Asthma Preeclampsia Home Medications acetaminophen 500 mg tablet 1,000 mg PO Q6H PRN PRN Pain 1-10 Or Fever #0 tabs 04/23/22 [Rx Last Taken Unknown] ibuprofen 600 mg tablet 600 mg PO Q6H PRN PRN Pain Score 1-3 #30 tabs 04/23/22 [Rx Last Taken Unknown] omeprazole 40 mg capsule,delayed release 40 mg PO DAILY #30 caps 05/27/22 [Rx Last Taken Unknown] Allergy/AdvReac Type Severity Reaction Status Date / Time No Known Allergies Allergy Verified 05/27/22 13:03 Social History Smoking Status: Current some day smoker tobacco type: e-cigarettes ROS ROS ED ROS Narrative Past medical history: Reviewed Medications: Reviewed Social history: Noncontributory Review of systems: All systems negative except as indicated General: No fever Eyes: No visual changes ENT: No upper airway congestion, normal voice Neck: No neck pain Cardiovascular: Mostly epigastric pain Respiratory: No shortness of breath or cough Gastrointestinal: As in HPI Genitourinary: No dysuria Musculoskeletal: Denies myalgias no difficulty with ambulation Skin: No rash Neurological: No memory loss, confusion or any focal weakness Psych: No recent behavioral changes Hematologic: No easy bleeding or easy bruising EXAM Physical Exam Narrative Exam Narrative: Physical exam General: Well nourished, Well developed, No Acute Distress Head: Normocephalic, Atraumatic Eyes: Conjunctiva not pale ENT: Moist mucous membranes Neck: Supple, Nontender, No lymphadenopathy Cardiovascular: Regular rate, Regular rhythm Respiratory: No distress, CTA bilaterally Abdomen: Soft, mostly epigastric tenderness to palpation. It is reproducible. She has pain under her xiphoid but not specifically in the chest. Back: Nontender, Normal Inspection. Negative for: CVA tenderness Extremities: Nontender, No edema Skin: Normal color, No rash Neurological: Alert, Normal Strength, Normal Sensation Psychological: Normal affect Const Vital Signs: 05/27/22 13:03 Temperature 97.4 F L Temperature Source Temporal Pulse Rate 64 Respiratory Rate 18 Blood Pressure 131/66 H Blood Pressure Mean 87 Pulse Ox 100 Oxygen Delivery Method Room Air [facility] Narrative Medical decision making narrative: A. Problems addressed Patient has epigastric pain, it is close to chest wall region therefore cardiac work-up was done however I treated her for gastritis with a GI cocktail and her pain is now almost gone. There is no signs or systems of cardiac disease on work-up, no signs or symptoms of pneumonia or pneumothorax. She appears well I talked to her and she will be discharged in stable condition B. Amount and/or complexity of the data 1. CBC CMP and troponin were unremarkable and interpreted by me 2. Independent interpretation of test Telemetry: Sinus rhythm with a rate in the 60s and 70s without ectopy C. Patient was seen by me in the emergency department. I have considered the following differential diagnoses however I was able to exclude all of these through a thorough history and physical exam as well as laboratory testing: PE or any thromboembolic etiologies, myocardial infarction, aortic dissection, esophageal rupture, pneumothorax, musculoskeletal emergencies, upper abdominal pathologies such as pancreatitis, cholecystitis or choledocholithiasis, as well as ruptured bowel. Lab Data Labs: Laboratory Results - last 24 hr 05/27/22 13:30 WBC 7.6 RBC 4.86 Hgb 13.2 Hct 41.8 MCV 86.0 MCH 27.2 MCHC 31.6 L RDW Std Deviation 44.4 H RDW Coeff of Gregory 14.3 Plt Count 192 MPV 12.3 H Immature Gran % (Auto) 0.300 Neut % (Auto) 43.7 L Lymph % (Auto) 40.1 [place] % (Auto) 8.2 Eos % (Auto) 7.0 H Baso % (Auto) 0.7 Absolute Neuts (auto) 3.3 Absolute Lymphs (auto) 3.03 Nucleated RBC % 0 Radiography Diagnostic Testing: X-ray read by me is unremarkable EKG Initial EKG: Comments: Sinus rhythm with rate of 67. Normal NV and QTc interval. No ischemic changes. Discharge Plan Triage Chief Complaint: Chest Pain ED Provider: Barrett Byrne Dx/Rx/DC Orders Clinical Impression: Acute epigastric pain, Chest pain Instructions: ED Epigastric Pain Uncertain Cause Prescriptions: New omeprazole 40 mg capsule,delayed release(DR/EC) 40 mg PO DAILY Qty: 30 0RF No Action acetaminophen 500 mg Tablet 1,000 mg PO Q6H PRN PRN (Reason: Pain 1-10 Or Fever) Qty: 0 0RF ibuprofen 600 mg Tablet 600 mg PO Q6H PRN PRN (Reason: Pain Score 1-3) Qty: 30 0RF Primary Care Provider: Care Physician,No Primary Referrals: Care Physician,No Primary [Primary Care Provider] - 3-5 Days Disposition Disposition: Home, Self Care
[2022-05-27 13:38] LABS: Absolute Lymphocyte Count 3.03 X10^3/uL (0.83-4.51); Absolute Neutrophil Count 3.3 X10^3/uL (2.0-7.7); Basophil# 0.05 X10^3/uL; Basophil% 0.7 % (0-1); Eosinophil# 0.53 X10^3/uL; Hematocrit 41.8 % (37-47); Hemoglobin 13.2 g/dL (12.0-15.0); Lymphocyte # 3.03 X10^3/ul (0.83-4.51); Lymphocyte % 40.1 % (19-41); Mean Corp Hgb Conc 31.6 g/dL (32-36); Mean Corpuscular Hgb 27.2 pg (27.0-32.0); Mean Platelet Vol. 12.3 fl (6.2-12.0); Monocyte# 0.62 X10^3/uL; Monocyte% 8.2 % (0-10); NRBC Flagged by Analyzer 0 % (0-5); Neutrophil % 43.7 % (47-70); Platelet Count 192 K/mm3 (150-450); RBC Distribution Width CV 14.3 % (11.6-14.6); RBC Distribution Width SD 44.4 fl (35.1-43.9); Red Blood Count 4.86 M/mm3 (4.2-5.4); White Blood Count 7.6 K/mm3 (4.4-11.0)
[2022-05-27] MEDS: Mag Hydrox/Al Hydrox/Simeth 30 ML UDC PO (13:44)
[2022-05-27 13:58] LABS: ALB/GLOB Ratio 0.8 RATIO (0.9-2.4); AST(SGOT) 50 U/L (15-37); Alanine Aminotransfer ALT/SGPT 40 U/L (13-56); Albumin, Serum 3.5 g/dL (3.2-5.0); Alkaline Phosphatase 98 U/L (45-117); Anion Gap 6 (5-15); BUN 12 mg/dL (7-18); BUN/Creat Ratio 14.6 RATIO (10-20); Calcium,Total 9.2 mg/dL (8.5-10.1); Chloride 110 mmol/L (98-107); Creatinine, Serum 0.82 mg/dL (0.55-1.02); EST Glomerular Filtration Rate 93 mL/min (>60); Est Glom Filt Rate - Afr Amer 113 mL/min (>60); Estimated Creatinine Clearance 93.71 ml/min; Globulin 4.5 g/dL (2.2-4.2); Glucose 97 mg/dL (74-106); Lipase 122 U/L (73-393); Sodium Level 138 mmol/L (136-145); Troponin-I HS < 3 pg/mL (3.0-54.0)
[2022-05-27 14:10] VITALS: BP 134/77; PULSE 62; RESP 15; O2SAT 98
== END 2022-05-27 14:11 | disposition home or self-care (01) ==
PROVIDERS: Emergency Provider Emergency Medicine; Visit Provider Emergency Medicine
DX: R10.13 Epigastric pain (principal); K29.70 Gastritis, unspecified, without bleeding; R07.9 Chest pain, unspecified; F17.290 Nicotine dependence, other tobacco product, uncomplicated; J45.909 Unspecified asthma, uncomplicated
CPT/HCPCS: 71045; 80053; 83690; 84484; 85025; 93005; 99285

== ENCOUNTER 2022-06-28 02:24 | Emergency (ER) | payer MEDICAID, SELFPAY ==
[2022-06-28 02:25] VITALS: BP 112/46; PULSE 75; RESP 18; TEMP 35.9; O2SAT 100; BMI 29.5
[2022-06-28 02:56] LABS: Absolute Neutrophil Count 5.7 X10^3/uL (2.0-7.7); Basophil# 0.07 X10^3/uL; Basophil% 0.6 % (0-1); Eosinophil# 0.69 X10^3/uL; Eosinophils% 5.7 % (0-5); Hematocrit 37.8 % (37-47); Hemoglobin 12.3 g/dL (12.0-15.0); Lymphocyte % 38.7 % (19-41); Mean Corp Hgb Conc 32.5 g/dL (32-36); Mean Corpuscular Hgb 27.3 pg (27.0-32.0); Mean Platelet Vol. 11.8 fl (6.2-12.0); Monocyte# 0.98 X10^3/uL; Monocyte% 8.1 % (0-10); NRBC Flagged by Analyzer 0 % (0-5); Neutrophil # 5.67 X10^3/uL (2.7-7.7); Neutrophil % 46.6 % (47-70); Platelet Count 276 K/mm3 (150-450); RBC Distribution Width CV 15.2 % (11.6-14.6); RBC Distribution Width SD 46.3 fl (35.1-43.9); White Blood Count 12.2 K/mm3 (4.4-11.0)
[2022-06-28] MEDS: 0.9% Normal Saline 1,000 ML 999 ML IV (02:56)
[2022-06-28] MEDS: Ondansetron 4 MG/2 ML Vial IV (02:56)
[2022-06-28] MEDS: Famotidine 200 MG/20 ML MDV 20 MG in 0.9% Normal Saline (Pres. free 8 ML 300 MG IV (02:58)
[2022-06-28] MEDS: Mag Hydrox/Al Hydrox/Simeth 30 ML UDC PO (02:59)
[2022-06-28 03:11] LABS: Internal QC Validated? YES +Cl - CLEAR BKGD; Pregnancy, Serum, hCG Quali. NEGATIVE Negative
[2022-06-28 03:25] LABS: AST(SGOT) 35 U/L (15-37); Alanine Aminotransfer ALT/SGPT 36 U/L (13-56); Albumin, Serum 3.7 g/dL (3.2-5.0); Alkaline Phosphatase 103 U/L (45-117); Anion Gap 3 (5-15); BUN 13 mg/dL (7-18); BUN/Creat Ratio 13.9 RATIO (10-20); Bilirubin, Direct 0.13 mg/dL (0.00-0.30); Calcium,Total 9.2 mg/dL (8.5-10.1); Chloride 109 mmol/L (98-107); Creatinine, Serum 0.94 mg/dL (0.55-1.02); EST Glomerular Filtration Rate 80 mL/min (>60); Est Glom Filt Rate - Afr Amer 97 mL/min (>60); Estimated Creatinine Clearance 85.19 ml/min; Globulin 3.8 g/dL (2.2-4.2); Glucose 135 mg/dL (74-106); Lipase 43 U/L (13-75); Potassium 3.4 mmol/L (3.5-5.1); Protein, Total 7.5 g/dL (6.4-8.2); Sodium Level 138 mmol/L (136-145)
--- NOTE | 2022-06-28 03:56 | EX.ED.DYSGE1 ---
HPI History of Present Illness Chief Complaint: Abd Pain Narrative Narrative: Patient is a 22-year-old female who states she has had intermittent upper abdominal pain since giving roughly 3 months ago. She states she has not followed up or seen anyone secondary to this. She states that this evening she went out to dinner with her family at a [place] restaurant. She states she did not think much of this but as she was sleeping she developed upper abdominal pain with bouts of nausea. She states symptoms were not improving at home and with concern for underlying infection she called EMS and was brought in for evaluation [facility] Medical History Asthma Preeclampsia Home Medications famotidine 20 mg tablet (Pepcid) 20 mg PO BID #60 tabs 06/28/22 [Rx Last Taken Unknown] sucralfate 1 gram tablet (Carafate) 1 g PO BID #60 tabs 06/28/22 [Rx Last Taken Unknown] Allergy/AdvReac Type Severity Reaction Status Date / Time No Known Allergies Allergy Verified 06/28/22 02:28 Social History Smoking Status: Current some day smoker tobacco type: e-cigarettes ROS ROS ED Constitutional Constitutional ED: Denies chills or fever(s) ENT ENT ED: Denies sore throat Cardiovascular Cardiovascular: Denies chest pain Respiratory/Chest Respiratory/Chest: Denies cough or dyspnea Gastrointestinal Gastrointestinal: Reports abdominal pain and nausea; Denies diarrhea or vomiting Genitourinary Genitourinary ED: Denies dysuria Musculoskeletal Musculoskeletal: Denies myalgias Integumentary Denies rash Neurologic Neurologic: Denies headache(s) Hematologic/Lymphatic Hematologic/Lymphatic: Denies easy bleeding or easy bruising EXAM Physical Exam Const Vital Signs: 06/28/22 02:25 Temperature 96.6 F L Temperature Source Temporal Pulse Rate 75 Respiratory Rate 18 Blood Pressure 112/46 L Blood Pressure Mean 68 Pulse Ox 100 Oxygen Delivery Method Room Air Positive well nourished and well developed General Appearance ED: well developed HEENT Reports moist mucous membranes HEENT Narrative: No signs of infection in the posterior pharynx no airway edema or compromise Eyes PERRL and EOMs intact bilaterally General Eye ED: Negative for scleral icterus Neck supple Resp normal respiratory effort and clear to auscultation bilaterally Cardio regular rate and regular rhythm Rate: other Other Details: Radial pulses are plus 2 out of 4 bilaterally are equal and symmetric GI non-distended GI Narrative: Abdomen is soft and nondistended with normal active bowel sounds. There is pain with palpation in the midepigastric region without voluntary guarding or rigidity. No pulsatile mass or fluid wave. Negative [place] sign Auscultation: normoactive bowel sounds Palpation: soft Back/Spine no CVA tenderness Extremity normal to inspection Neuro oriented x3 and CN's II-XII intact bilaterally Sensorium / Orientation: alert Psych mental status grossly normal Skin no rashes or lesions noted General Skin Exam: Negative for jaundice MDM MDM MDM Narrative Medical decision making narrative: Patient presented to the ER with stable vitals and a soft nonsurgical abdomen and therefore I felt no need for emergent imaging or laboratory studies. The differential includes biliary colic colitis viral gastroenteritis ileus or gastritis. Based on the pain beginning after eating [place] and the fact has been recurrent for multiple months I do feel this is most likely gastritis. Patient's white count is slightly elevated at 12 but chart review reveals she is typically elevated and I do not feel there is need for imaging study based on the slight elevation as it is most likely stress response. The remainder of her labs show no signs of acute kidney injury and a normal lipase going against pancreatitis and no signs of severe dehydration or DKA. Patient was given a GI cocktail as well as Pepcid Zofran IV fluids and reported improvement of her symptoms. On reevaluation abdomen remains soft and nonsurgical. Therefore at this time as symptoms are most consistent with recurrent gastritis but there is no signs of active hemorrhage or obstruction she can be placed on symptomatic medications and discharged home History & Record Review Discussion w/independent historian: Patient Lab Data Attestation: I reviewed the patient's lab results. Labs: Laboratory Results - last 24 hr 06/28/22 06/28/22 06/28/22 02:37 02:37 02:37 WBC 12.2 H RBC 4.50 Hgb 12.3 Hct 37.8 MCV 84.0 MCH 27.3 MCHC 32.5 RDW Std Deviation 46.3 H RDW Coeff of Gregory 15.2 H Plt Count 276 MPV 11.8 Immature Gran % (Auto) 0.300 Neut % (Auto) 46.6 L Lymph % (Auto) 38.7 [place] % (Auto) 8.1 Eos % (Auto) 5.7 H Baso % (Auto) 0.6 Absolute Neuts (auto) 5.7 Absolute Lymphs (auto) 4.70 H Nucleated RBC % 0 Sodium 138 Potassium 3.4 L Chloride 109 H Carbon Dioxide 26.0 Anion Gap 3 L BUN 13 Creatinine 0.94 Estim Creat Clear Calc 85.19 Est GFR (MDRD) Af Amer 97 Est GFR (MDRD) Non-Af 80 BUN/Creatinine Ratio 13.9 Glucose 135 H Calcium 9.2 Total Bilirubin 0.20 Direct Bilirubin 0.13 AST 35 ALT 36 Alkaline Phosphatase 103 Total Protein 7.5 Albumin 3.7 Globulin 3.8 Lipase 43 Serum , Qual NEGATIVE Discharge Plan Triage Chief Complaint: Abd Pain ED Provider: Kenton Smith Dx/Rx/DC Orders Clinical Impression: Gastritis Instructions: ED Gastritis (Adult) Prescriptions: New famotidine [Pepcid] 20 mg tablet 20 mg PO BID Qty: 60 2RF sucralfate [Carafate] 1 gram tablet 1 g PO BID Qty: 60 1RF Primary Care Provider: Care Physician,No Primary Referrals: Jaimee Ochoa MD [Med Staff - [facility]] - Care Physician,No Primary [Primary Care Provider] - Disposition Disposition: Home, Self Care
[2022-06-28 04:10] VITALS: PULSE 74; RESP 18; O2SAT 96
== END 2022-06-28 04:13 | disposition home or self-care (01) ==
PROVIDERS: Emergency Provider Emergency Medicine; Visit Provider Emergency Medicine
DX: K29.70 Gastritis, unspecified, without bleeding (principal); F17.290 Nicotine dependence, other tobacco product, uncomplicated
CPT/HCPCS: 80048; 80076; 83690; 84703; 85025; 96365; 96375; 99284; J7030; J2405; J3490

== ENCOUNTER 2022-07-20 01:45 | Emergency (ER) | payer MEDICAID, SELFPAY ==
[2022-07-20 01:46] VITALS: BP 156/79; PULSE 96; RESP 18; TEMP 36.7; O2SAT 97; BMI 31.6
--- NOTE | 2022-07-20 02:00 | EDS_ITS ---
HPI HPI - GI History of Present Illness Chief Complaint: Abd Pain Informant: patient Abdominal Pain/Flank Pain Onset: Hours Context: Gradual Onset Timing: Continuous Quality: Aching, Burning and Dull Location: Epigastric Current Severity: Moderate Maximum Severity: Moderate Worsened by: Nothing Relieved by: Nothing Nausea/Vomiting/Emesis GI Symptom: Negative for Nausea or Vomiting Diarrhea/Melena/Hematochezia GI Symptom: Negative for Diarrhea, Melena or Hematochezia Associated Symptoms Associated Symptoms: Negative for Dysuria, Frequency or Hematuria Narrative Narrative: 22-year-old female with past medical history of reflux and asthma. States about 3 hours ago she started having midepigastric abdominal pain. Denies any radiation to her chest or lower abdomen. No nausea, vomiting or diarrhea. No fever or chills. No melena. No weight change. Nothing particular makes it better or worse. She has never had any abdominal surgeries. She has been told in the past this was reflux. She believes something else may be going on. She denies any back pain. Prior similar symptoms: Yes Recent Illness/Hospitalization: No PFSH PFSH Medical History Acid reflux Asthma Preeclampsia Home Medications famotidine 20 mg tablet (Pepcid) 20 mg PO BID #60 tabs 06/28/22 [Rx Last Taken Unknown] sucralfate 1 gram tablet (Carafate) 1 g PO BID #60 tabs 06/28/22 [Rx Last Taken Unknown] pantoprazole 40 mg tablet,delayed release (Protonix) 40 mg PO DAILY #30 tabs 07/20/22 [Rx Last Taken Unknown] Allergy/AdvReac Type Severity Reaction Status Date / Time No Known Allergies Allergy Verified 06/28/22 02:28 Social History Smoking Status: Current some day smoker tobacco type: e-cigarettes ROS ROS ED ROS Narrative Midepigastric abdominal pain. Review of Systems ROS Unobtainable: Denies due to encephalopathy Constitutional Constitutional ED: Denies chills or fever(s) ENT ENT ED: Denies ear pain Cardiovascular Cardiovascular: Denies chest pain Respiratory/Chest Respiratory/Chest: Denies cough Gastrointestinal Gastrointestinal: Reports abdominal pain; Denies constipation, diarrhea, melena, nausea or vomiting Genitourinary Genitourinary ED: Denies dysuria or hematuria Musculoskeletal Musculoskeletal: Denies arthralgias Integumentary Denies abscess Neurologic Neurologic: Denies headache(s) Psychiatric Psychiatric: Denies anxiety Endocrine Endocrinology: Denies polydipsia Hematologic/Lymphatic Hematologic/Lymphatic: Denies easy bleeding Allergic/Immunologic Allergic/Immunologic ED: Denies mouth swelling or tongue swelling EXAM Physical Exam Narrative Exam Narrative: 22-year-old female vital signs stable afebrile. Does not look septic or toxic. She is complaining of midepigastric abdominal pain. No one else present in room. H EENT exam unremarkable. Moist extremities. Neck nontender no lymphadenopathy. Lungs clear to auscultation. Heart regular rhythm rate about 95 no murmur. Abdomen soft, nontender, nondistended normal bowel sounds no peritoneal signs. She has no reproducible abdominal tenderness. Right upper and right lower quadrants are completely unremarkable. No hernia or mass. No distention. Back nontender. Moving all 4 extremities. Neurologic exam normal. Very benign exam. Const Vital Signs: 07/20/22 01:46 Temperature 98.1 F Temperature Source Temporal Pulse Rate 96 Respiratory Rate 18 Blood Pressure 156/79 H Blood Pressure Mean 104 Pulse Ox 97 Oxygen Delivery Method Room Air Positive well nourished and well developed; Negative for cachectic, contractures or unkempt General Appearance ED: well developed and NAD; Negative for unkempt, cachectic, contractures or pallor Nutritional Appearance: Negative for cachectic HEENT Reports moist mucous membranes normocephalic and atraumatic; Negative for trauma or tenderness Eyes PERRL and EOMs intact bilaterally General Eye ED: Negative for pale conjunctiva or scleral icterus Neck no lymphadenopathy, supple and no JVD General: Negative for tenderness Carotids: Negative for other Lymph Lymphatic: Negative for other Resp normal respiratory effort and clear to auscultation bilaterally Effort and Inspection: Negative for respiratory distress Auscultation: Negative for rales, rhonchi or wheezes Cardio regular rate, regular rhythm, S1 normal heart sound, S2 normal heart sound and no murmurs Rate: Negative for bradycardia or tachycardic Rhythm: Negative for abnormal rhythm GI non-tender, non-distended and no masses Inspection: Negative for abdominal distention Auscultation: normoactive bowel sounds Palpation: soft; Negative for tender, guarding, rigid, hepatomegaly, spl enomegaly, hernia, mass, pulsatile mass or rebound tenderness present Back/Spine no CVA tenderness General Back: Negative for CVA tenderness Cervical Spine: Negative for cervical spine tenderness Thoracic Spine / Upper Back: Negative for thoracic spinal tenderness Lumbar Spine / Lower Back: Negative for lumbar spinal tenderness Coccyx: Negative for other Extremity full ROM General Extremety ED: Negative for edema or tenderness General Extremity: Negative for edema Neuro CN's II-XII intact bilaterally, moves all extremities and no sensory deficits noted Sensorium / Orientation: alert, oriented to person, oriented to place and oriented to time; Negative for orientation impaired, confused, lethargic or stuporous Motor Exam: strength 5/5 throughout Psych mental status grossly normal and thought process normal Appearance: Negative for unkempt Attitude: No agitated Mood & Affect: Negative for depressed, anxious or tearful Skin no wounds General Skin Exam: Negative for jaundice or pallor Lesions: no lesions Rashes: no rashes Trauma: Negative for abrasion Nails: Negative for discolored MDM MDM MDM Narrative Medical decision making narrative: 22-year-old female epigastric abdominal pain clinically sounds like reflux. She has a completely benign abdominal exam there. There is no reproducible tenderness. No right upper or lower quadrant tenderness. Screening labs will be obtained. She will be given IV Protonix and Tums and she will be reevaluated. She did not want a GI cocktail. I did review her old charts labs and records. Repeat exam at 2:40 AM patient doing well. Abdomen nontender. Her symptoms are much improved after the IV Protonix and p.o. Tums. She and I went over test results and diagnosis. This is either reflux or gastritis. She is already on medications at home. She will continue her Carafate. I will write her for Protonix and have her follow-up with Dr. Trevin Lisa of general surgery to decide if they want to do upper endoscopy or not. History & Record Review Discussion w/independent historian: Patient Additional record(s) reviewed:: Prior inpatient record, Prior outpatient record, Prior ED visit and Prior labs Lab Data Attestation: I reviewed the patient's lab results. Lab results narrative: CBC shows no acute abnormality. White count of 9. H&H 12.4 and 38.2. Platelets of 235. These are consistent with prior labs. CMP shows normal electrolytes. Normal gap of 7. Normal BUN and creatinine. Liver enzymes are unremarkable. Glucose 112. Lipase normal at 45. Labs: Laboratory Results - last 24 hr 07/20/22 07/20/22 02:06 02:06 WBC 9.2 RBC 4.48 Hgb 12.4 Hct 38.2 MCV 85.3 MCH 27.7 MCHC 32.5 RDW Std Deviation 46.8 H RDW Coeff of Gregory 15.1 H Plt Count 235 MPV 11.5 Immature Gran % (Auto) 0.200 Neut % (Auto) 47.3 Lymph % (Auto) 35.7 [place] % (Auto) 8.0 Eos % (Auto) 8.3 H Baso % (Auto) 0.5 Absolute Neuts (auto) 4.4 Absolute Lymphs (auto) 3.30 Nucleated RBC % 0 Sodium 139 Potassium 3.5 Chloride 108 H Carbon Dioxide 24.0 Anion Gap 7 BUN 14 Creatinine 0.70 Estim Creat Clear Calc 114.40 Est GFR (MDRD) Af Amer 136 Est GFR (MDRD) Non-Af 112 BUN/Creatinine Ratio 20.0 Glucose 112 H Calcium 9.0 Total Bilirubin 0.40 AST 33 ALT 32 Alkaline Phosphatase 100 Total Protein 7.5 Albumin 3.5 Globulin 4.0 Albumin/Globulin Ratio 0.9 Lipase 45 Discharge Plan Triage Chief Complaint: Abd Pain ED Provider: Donald Dao Dx/Rx/DC Orders Clinical Impression: Epigastric abdominal pain, Gastroesophageal reflux Instructions: GERD Lifestyle Changes, GERD Dc Prescriptions: New pantoprazole [Protonix] 40 mg tablet,delayed release (DR/EC) 40 mg PO DAILY Qty: 30 0RF No Action famotidine [Pepcid] 20 mg tablet 20 mg PO BID Qty: 60 2RF sucralfate [Carafate] 1 gram tablet 1 g PO BID Qty: 60 1RF Primary Care Provider: Care Physician,No Primary Referrals: Vincenzo Lisa MD [Med Staff - Active Staff] - As soon as possible Cristian Muro MD [Med Staff - Workforce Advisor] - 1 Week if not improving Care Physician,No Primary [Primary Care Provider] - Activity Restrictions/Additional Instructions: I reviewed prescription for Protonix. Use that and the Carafate for your epigastric pain which is either reflux or gastritis. You can also use Tums as needed. Follow-up with the general surgeon I referred you to for further evaluation and he can determine if you need upper endoscopy. Disposition Disposition: Home, Self Care
[2022-07-20 02:12] LABS: Absolute Neutrophil Count 4.4 X10^3/uL (2.0-7.7); Basophil# 0.05 X10^3/uL; Basophil% 0.5 % (0-1); Eosinophil# 0.77 X10^3/uL; Eosinophils% 8.3 % (0-5); Hematocrit 38.2 % (37-47); Hemoglobin 12.4 g/dL (12.0-15.0); Lymphocyte % 35.7 % (19-41); Mean Corp Hgb Conc 32.5 g/dL (32-36); Mean Corpuscular Hgb 27.7 pg (27.0-32.0); Mean Corpuscular Volume 85.3 fL (81-99); Mean Platelet Vol. 11.5 fl (6.2-12.0); Monocyte# 0.74 X10^3/uL; NRBC Flagged by Analyzer 0 % (0-5); Neutrophil # 4.36 X10^3/uL (2.7-7.7); Neutrophil % 47.3 % (47-70); Platelet Count 235 K/mm3 (150-450); RBC Distribution Width CV 15.1 % (11.6-14.6); RBC Distribution Width SD 46.8 fl (35.1-43.9); Red Blood Count 4.48 M/mm3 (4.2-5.4); White Blood Count 9.2 K/mm3 (4.4-11.0)
[2022-07-20] MEDS: Calcium Carbonate 500 MG Tablet 1000 MG PO (02:14)
[2022-07-20 02:30] LABS: ALB/GLOB Ratio 0.9 RATIO (0.9-2.4); AST(SGOT) 33 U/L (15-37); Alanine Aminotransfer ALT/SGPT 32 U/L (13-56); Albumin, Serum 3.5 g/dL (3.2-5.0); Alkaline Phosphatase 100 U/L (45-117); Anion Gap 7 (5-15); BUN 14 mg/dL (7-18); Chloride 108 mmol/L (98-107); EST Glomerular Filtration Rate 112 mL/min (>60); Est Glom Filt Rate - Afr Amer 136 mL/min (>60); Glucose 112 mg/dL (74-106); Lipase 45 U/L (13-75); Potassium 3.5 mmol/L (3.5-5.1); Protein, Total 7.5 g/dL (6.4-8.2); Sodium Level 139 mmol/L (136-145)
[2022-07-20 02:59] VITALS: BP 124/69; PULSE 81; RESP 16; O2SAT 97
== END 2022-07-20 03:01 | disposition home or self-care (01) ==
LOC: ED 02:15
PROVIDERS: Emergency Provider Emergency Medicine; Visit Provider Emergency Medicine
DX: R10.13 Epigastric pain (principal); K21.9 Gastro-esophageal reflux disease without esophagitis; Z79.899 Other long term (current) drug therapy; F17.290 Nicotine dependence, other tobacco product, uncomplicated
CPT/HCPCS: 80053; 83690; 85025; 96365; 99285; A4216

== ENCOUNTER 2022-10-07 20:27 | Emergency (ER) | payer MEDICAID, SELFPAY ==
[2022-10-07 20:28] VITALS: PULSE 59; RESP 18; TEMP 36.2; O2SAT 97
[2022-10-07 20:37] VITALS: BP 109/75
[2022-10-07 21:02] VITALS: BP 122/61
[2022-10-07 21:17] LABS: Bedside Glucose 94 mg/dL (74-106)
--- NOTE | 2022-10-07 21:24 | EX.ED.DYSGE1 ---
HPI History of Present Illness Chief Complaint: Abd Pain Detail of Chief Complaint: Epigastric abdominal pain Informant: patient Onset/Context/Timing Onset: Today Narrative Narrative: Patient presents with epigastric abdominal pain. She states she woke from sleep with pain across her upper abdomen. She had similar pain in the past and told that she had reflux. She states that she has not been regularly taking her antacid medicine as her children take the bottle and hide it. Patient had an IV initiated by squad and states she actually feels much better after receiving some IV fluids and sitting upright. At the time of my initial evaluation she states her pain is completely resolved. [facility] Medical History Acid reflux Asthma Preeclampsia Home Medications famotidine 20 mg tablet (Pepcid) 20 mg PO BID #60 tabs 06/28/22 [Rx Last Taken Unknown] sucralfate 1 gram tablet (Carafate) 1 g PO BID #60 tabs 06/28/22 [Rx Last Taken Unknown] pantoprazole 40 mg tablet,delayed release (Protonix) 40 mg PO DAILY #30 tabs 07/20/22 [Rx Last Taken Unknown] omeprazole 40 mg capsule,delayed release 40 mg PO DAILY 4 weeks #28 caps 10/07/22 [Rx Last Taken Unknown] Allergy/AdvReac Type Severity Reaction Status Date / Time No Known Allergies Allergy Verified 06/28/22 02:28 Social History Smoking Status: Current some day smoker tobacco type: e-cigarettes ROS ROS ED Constitutional Constitutional ED: Denies chills or fever(s) Eyes Eyes: Denies change in vision or discharge from eye(s) ENT ENT ED: Denies discharge from eye(s), rhinorrhea or sore throat Cardiovascular Cardiovascular: Denies chest pain Respiratory/Chest Respiratory/Chest: Denies cough or dyspnea Gastrointestinal Gastrointestinal: Reports abdominal pain; Denies diarrhea, nausea or vomiting Genitourinary Genitourinary ED: Denies dysuria Musculoskeletal Musculoskeletal: Denies back pain or extremity pain Integumentary Denies Abrasions or rash Neurologic Neurologic: Denies headache(s) or weakness Psychiatric Psychiatric: Denies anxiety or depression Allergic/Immunologic Allergic/Immunologic ED: Denies lip swelling or urticaria EXAM Physical Exam Const Vital Signs: 10/07/22 20:28 10/07/22 21:02 10/07/22 20:37 Temperature 97.2 F L Temperature Source Oral Pulse Rate 59 L Respiratory Rate 18 Blood Pressure 122/61 H 109/75 Blood Pressure Mean 81 86 Pulse Ox 97 Oxygen Delivery Method Room Air 10/07/22 21:35 Temperature 97.3 F L Temperature Source Temporal Pulse Rate 65 Respiratory Rate 16 Blood Pressure 126/71 H Blood Pressure Mean 89 Pulse Ox 100 Oxygen Delivery Method Room Air Positive well nourished and well developed General Appearance ED: well developed HEENT Reports normocephalic and head/scalp atraumatic Eyes PERRL and EOMs intact bilaterally Neck supple Chest Wall inspection of chest normal and palpation of chest normal Resp normal respiratory effort and clear to auscultation bilaterally Cardio regular rate and regular rhythm GI GI Narrative: Abdomen soft with minimal tenderness in the epigastrium. No guarding or rebound. Palpation: soft Extremity normal to inspection Neuro oriented x3 and no sensory deficits noted Sensorium / Orientation: alert Motor Exam: strength 5/5 throughout Psych mental status grossly normal Skin no rashes or lesions noted MDM MDM MDM Narrative Medical decision making narrative: Patient states her symptoms have resolved at this time. She does have a history of reflux and has not been on her antacids. She is given a dose of IV Protonix and a prescription for Prilosec sent to the pharmacy for her. Return instructions given. Lab Data Labs: Laboratory Results - last 24 hr 10/07/22 20:58 POC Glucose 94 Discharge Plan Triage Chief Complaint: Abd Pain ED Provider: Kylee Solis Dx/Rx/DC Orders Clinical Impression: Epigastric pain Instructions: ED GERD (Adult) Prescriptions: New omeprazole 40 mg capsule,delayed release(DR/EC) 40 mg PO DAILY 28 Days Qty: 28 0RF No Action famotidine [Pepcid] 20 mg tablet 20 mg PO BID Qty: 60 2RF sucralfate [Carafate] 1 gram tablet 1 g PO BID Qty: 60 1RF pantoprazole [Protonix] 40 mg tablet,delayed release (DR/EC) 40 mg PO DAILY Qty: 30 0RF Primary Care Provider: Care Physician,No Primary Referrals: Carlos Duncan MD [Med Staff - Active Staff] - As Needed Care Physician,No Primary [Primary Care Provider] - Disposition Disposition: Home, Self Care Discharge Date/Time: 10/07/22 22:10
[2022-10-07 21:35] VITALS: BP 126/71; PULSE 65; RESP 16; TEMP 36.3; O2SAT 100
== END 2022-10-07 22:10 | disposition home or self-care (01) ==
PROVIDERS: Emergency Provider Emergency Medicine; Visit Provider Emergency Medicine
DX: R10.13 Epigastric pain (principal); K21.9 Gastro-esophageal reflux disease without esophagitis; Z79.899 Other long term (current) drug therapy; F17.200 Nicotine dependence, unspecified, uncomplicated
CPT/HCPCS: 82962; 96365; 99284; J7030; A4216

== ENCOUNTER 2023-01-25 23:12 | Emergency (ER) | payer MEDICAID, SELFPAY ==
[2023-01-25 23:12] VITALS: BP 137/84; PULSE 95; RESP 16; TEMP 36.6; O2SAT 100; BMI 27.8
--- NOTE | 2023-01-25 23:25 | EX.ED.DYSGE1 ---
HPI History of Present Illness Chief Complaint: Nausea/Vomiting Detail of Chief Complaint: Vomiting and fatigue with Informant: patient Narrative Narrative: Patient presents to the emergency department with complaint of vomiting and fatigue. Patient states that she is about 9 weeks and 3 days and has been in bed for the last 2 days sleeping. She vomits frequently. She denies abdominal pain. She had an ultrasound at 6 weeks . She tells me there was an intrauterine at that time. She denies vaginal bleeding. She denies fever or chills or sweats. She denies urinary symptoms. [facility] Medical History Acid reflux Asthma Preeclampsia Home Medications famotidine 20 mg tablet (Pepcid) 20 mg PO BID #60 tabs 06/28/22 [Rx Last Taken Unknown] sucralfate 1 gram tablet (Carafate) 1 g PO BID #60 tabs 06/28/22 [Rx Last Taken Unknown] pantoprazole 40 mg tablet,delayed release (Protonix) 40 mg PO DAILY #30 tabs 07/20/22 [Rx Last Taken Unknown] omeprazole 40 mg capsule,delayed release 40 mg PO DAILY 4 weeks #28 caps 10/07/22 [Rx Last Taken Unknown] cephalexin 500 mg capsule 500 mg PO Q6 #28 CAPSULES 01/26/23 [Rx Last Taken Unknown] Allergy/AdvReac Type Severity Reaction Status Date / Time No Known Allergies Allergy Verified 01/25/23 23:12 Social History Smoking Status: Current some day smoker tobacco type: e-cigarettes ROS ROS ED Review of Systems ROS Unobtainable: other Constitutional Constitutional ED: Reports lethargy; Denies chills, fever(s), sweats or weight loss Eyes Eyes: Denies blurry vision, change in vision or diplopia ENT ENT ED: Denies rhinorrhea or sore throat Cardiovascular Cardiovascular: Denies chest pain, orthopnea or racing heartbeat Respiratory/Chest Respiratory/Chest: Denies cough, dyspnea, dyspnea on exertion, orthopnea or sputum Gastrointestinal Gastrointestinal: Reports nausea and vomiting; Denies abdominal pain or diarrhea Genitourinary Genitourinary ED: Denies dysuria, hematuria or urinary frequency Musculoskeletal Musculoskeletal: Denies arthralgias, back pain, myalgias or neck pain Integumentary Denies abscess, Abrasions or rash Neurologic Neurologic: Denies headache(s) or weakness Psychiatric Psychiatric: Denies anxiety, depression or suicidal thoughts Endocrine Endocrinology: Denies polydipsia, polyphagia or polyuria Hematologic/Lymphatic Hematologic/Lymphatic: Denies easy bleeding, easy bruising or lymphadenopathy Allergic/Immunologic Allergic/Immunologic ED: Denies mouth swelling, tongue swelling or urticaria EXAM Physical Exam Const Vital Signs: 01/25/23 23:12 Temperature 97.8 F Temperature Source Temporal Pulse Rate 95 Respiratory Rate 16 Blood Pressure 137/84 H Blood Pressure Mean 101 Pulse Ox 100 Positive well nourished and well developed General Appearance ED: well developed and NAD HEENT Reports TM's clear and moist mucous membranes normocephalic and atraumatic; Negative for trauma or tenderness Tympanic Membrane ED: Yes TM's clear Eyes PERRL and EOMs intact bilaterally General Eye ED: Negative for pale conjunctiva or scleral icterus Neck no lymphadenopathy, supple and no JVD General: Negative for tenderness Chest Wall inspection of chest normal and palpation of chest normal Chest: Negative for tenderness Resp normal respiratory effort and clear to auscultation bilaterally Effort and Inspection: Negative for respiratory distress or pain with movement Auscultation: Negative for rhonchi, wheezes or diminished lung sounds Cardio regular rate, regular rhythm, S1 normal heart sound, S2 normal heart sound and no murmurs Peripheral Pulses: pulses 2+ throughout GI normal to inspection, nondistended, normoactive bowel sounds, soft to palpation, non-tender, non-distended and no masses Back/Spine no CVA tenderness and no thoracic nor lumbar tenderness Extremity normal to inspection General Extremety ED: Negative for edema General Extremity: Negative for edema Neuro oriented x3, CN's II-XII intact bilaterally, no sensory deficits noted and gait normal Sensorium / Orientation: awake, alert, oriented to person, oriented to place and oriented to time Motor Exam: strength 5/5 throughout and strength abnormal Psych mental status grossly normal Skin no rashes or lesions noted and no wounds MDM MDM MDM Narrative Medical decision making narrative: Patient with vomiting and not feeling well. No other significant complaints. IV line established. She was given a liter of the same fluid bolus. She was medicated with Zofran 4 mg IV. CBC with differential obtained showed a white count 7.7 with hemoglobin 13 and platelet counts of 233. Urinalysis positive for infection. Chemistries unremarkable. Urine culture was sent patient was started on Rocephin 1 g IV. Patient not having abdominal pain or vaginal bleeding. At this point will treat for UTI. Advised to follow-up with primary care physician or VENEER SUPERVISOR within next 3 to 5 days. Advised return if persistent vomiting, fever, severe back pain, dehydration, or condition worsening way. Lab Data Attestation: I reviewed the patient's lab results. Labs: Laboratory Results - last 24 hr 01/25/23 01/25/23 23:33 23:46 WBC 7.7 RBC 4.52 Hgb 13.2 Hct 38.2 MCV 84.5 MCH 29.2 MCHC 34.6 RDW Std Deviation 42.5 RDW Coeff of Gregory 13.9 Plt Count 233 MPV 12.5 H Sodium 135 L Potassium 3.8 Chloride 106 Carbon Dioxide 23.0 Anion Gap 6 BUN 7 Creatinine 0.61 Estim Creat Clear Calc 131.27 Est GFR (MDRD) Af Amer 157 Est GFR (MDRD) Non-Af 130 BUN/Creatinine Ratio 11.4 Glucose 99 Calcium 9.2 Urine Color Yellow Urine Clarity Clear Urine pH 7.0 Ur Specific [place] 1.010 Urine Protein 30 H Urine Glucose (UA) Normal Urine Ketones Negative Urine Occult Blood 25 H Urine Nitrite Negative Urine Bilirubin Negative Urine Urobilinogen 4 H Ur Leukocyte Esterase 500 H Urine RBC 0 SEEN Urine WBC 25-50 SEEN Ur Squamous Epith Cells 0-5 SEEN Ur Transition Epith Cell 0-5 SEEN Urine Bacteria 3+ Urine Mucus 0 SEEN Discharge Plan Triage Chief Complaint: Nausea/Vomiting ED Provider: Gaetano Boyer Dx/Rx/DC Orders Clinical Impression: UTI (urinary tract infection), Hyperemesis gravidarum Instructions: ED Hyperemesis Gravidarum, ED Cystitis Female Adult Prescriptions: New cephalexin [cephalexin] 500 mg capsule 500 mg PO Q6 Qty: 28 0RF No Action famotidine [Pepcid] 20 mg tablet 20 mg PO BID Qty: 60 2RF sucralfate [Carafate] 1 gram tablet 1 g PO BID Qty: 60 1RF pantoprazole [Protonix] 40 mg tablet,delayed release (DR/EC) 40 mg PO DAILY Qty: 30 0RF omeprazole 40 mg capsule,delayed release(DR/EC) 40 mg PO DAILY 28 Days Qty: 28 0RF Primary Care Provider: Care Physician,No Primary Referrals: Care Physician,No Primary [Primary Care Provider] - Activity Restrictions/Additional Instructions: Follow-up with your VENEER SUPERVISOR within next 3 to 5 days. Disposition Disposition: Home, Self Care
[2023-01-25 23:40] LABS: Hematocrit 38.2 % (37-47); Hemoglobin 13.2 g/dL (12.0-15.0); Mean Corp Hgb Conc 34.6 g/dL (32-36); Mean Corpuscular Hgb 29.2 pg (27.0-32.0); Mean Corpuscular Volume 84.5 fL (81-99); Mean Platelet Vol. 12.5 fl (6.2-12.0); Platelet Count 233 K/mm3 (150-450); RBC Distribution Width CV 13.9 % (11.6-14.6); RBC Distribution Width SD 42.5 fl (35.1-43.9); Red Blood Count 4.52 M/mm3 (4.2-5.4); White Blood Count 7.7 K/mm3 (4.4-11.0)
[2023-01-25] MEDS: Ondansetron 4 MG/2 ML Vial IV (23:51)
[2023-01-25] MEDS: 0.9% Normal Saline (1000mL) 1,000 ML 1000 ML IV (23:52)
[2023-01-25 23:55] LABS: Anion Gap 6 (5-15); BUN 7 mg/dL (7-18); BUN/Creat Ratio 11.4 RATIO (10-20); Calcium,Total 9.2 mg/dL (8.5-10.1); Chloride 106 mmol/L (98-107); Creatinine, Serum 0.61 mg/dL (0.55-1.02); EST Glomerular Filtration Rate 130 mL/min (>60); Est Glom Filt Rate - Afr Amer 157 mL/min (>60); Estimated Creatinine Clearance 131.27 ml/min; Glucose 99 mg/dL (74-106); Potassium 3.8 mmol/L (3.5-5.1); Sodium Level 135 mmol/L (136-145)
[2023-01-25 23:57] LABS: Mucous, Urine 0 SEEN /hpf (<or=2+); Red Blood Cells-Urine 0 SEEN /hpf (0-5)
[2023-01-26 00:05] LABS: Color, Urine Yellow (Yellow); Glucose, Dipstick Normal (Normal); Ketone-Dipstick Negative (Negative); Leukocyte Esterase-Dipstick 500 /ul (Negative); Nitrite-Dipstick Negative (Negative); Occult Blood-Urine 25 /ul (Negative); Protein-Dipstick 30 mg/dl (Negative); Urine Bilirubin Dipstick Negative (Negative); Urine Clarity Clear (Clear); Urine Urobilinogen 4 mg/dl (Normal)
[2023-01-26 00:30] LABS: Bacteria 3+ /hpf (None Seen); Squamous Epithelial Cells - UA 0-5 SEEN /hpf (5-10); Transitional Epithelial - Ur 0-5 SEEN /hpf (0-5); White Blood Cells 25-50 SEEN /hpf (0-5)
[2023-01-26] MEDS: Cephalexin 250 MG Capsule 500 MG PO (00:55)
== END 2023-01-26 01:36 | disposition home or self-care (01) ==
PROVIDERS: Emergency Provider Emergency Medicine; Visit Provider Emergency Medicine
DX: O21.0 Mild hyperemesis gravidarum (principal); O23.41 Unspecified infection of urinary tract in pregnancy, first trimester; O99.331 Smoking (tobacco) complicating pregnancy, first trimester; Z3A.09 9 weeks gestation of pregnancy; O99.611 Diseases of the digestive system complicating pregnancy, first trimester; K21.9 Gastro-esophageal reflux disease without esophagitis; Z79.899 Other long term (current) drug therapy; F17.290 Nicotine dependence, other tobacco product, uncomplicated
CPT/HCPCS: 80048; 81001; 85027; 87086; 87088; 96361; 96374; 99284; J7030; J2405

== ENCOUNTER 2023-02-04 17:16 | Emergency (ER) | payer MEDICAID, SELFPAY ==
[2023-02-04 17:17] VITALS: BP 139/89; PULSE 110; RESP 16; TEMP 36.6; O2SAT 100; BMI 27.5
--- NOTE | 2023-02-04 17:29 | EX.ED.DYSGE1 ---
HPI History of Present Illness Chief Complaint: Nausea/Vomiting Detail of Chief Complaint: Nausea and vomiting Informant: patient Narrative Narrative: Presents to the emergency department complaint of nausea and vomiting. Patient states that she is about 11 weeks . Patient was seen by her casting and pasting supervisor and she tested positive for chlamydia. She took to treatment for that. She was also recently diagnosed with a UTI and started on Keflex on January 30. Patient states that she continues to throw up and cannot keep her medicine down. Patient denies any abdominal pain. She had no vaginal bleeding. She denies dysuria. She had no fevers. Patient states that she has Zofran ODT but comes back up his phone when she tries to take it. [facility] Medical History Acid reflux Asthma Preeclampsia Home Medications cephalexin 500 mg capsule 500 mg PO Q6 #28 CAPSULES 01/26/23 [Rx Last Taken Unknown] metronidazole 500 mg tablet 500 mg PO Q12H 02/04/23 [History Last Taken Unknown] miconazole nitrate 2 % vaginal cream 1 appful vaginal QHS 02/04/23 [History Last Taken Unknown] ondansetron 8 mg disintegrating tablet 8 mg PO Q8H PRN nausea and vomiting 02/04/23 [History Last Taken Unknown] vitamins no.119-iron fumarate 29 mg-folic acid 1 mg tablet ( 19) 1 tab PO DAILY 02/04/23 [History Last Taken Unknown] promethazine 25 mg rectal suppository 25 mg TN Q6H PRN nausea and vomiting #12 ea 02/04/23 [Rx Last Taken Unknown] Allergy/AdvReac Type Severity Reaction Status Date / Time No Known Allergies Allergy Verified 01/25/23 23:12 Social History Smoking Status: Current some day smoker tobacco type: e-cigarettes ROS ROS ED Review of Systems ROS Unobtainable: other Constitutional Constitutional ED: Reports lethargy; Denies chills, fever(s), sweats or weight loss Eyes Eyes: Denies blurry vision, change in vision or diplopia ENT ENT ED: Denies rhinorrhea or sore throat Cardiovascular Cardiovascular: Denies chest pain, orthopnea or racing heartbeat Respiratory/Chest Respiratory/Chest: Denies cough, dyspnea, dyspnea on exertion, orthopnea or sputum Gastrointestinal Gastrointestinal: Reports nausea and vomiting; Denies abdominal pain or diarrhea Genitourinary Genitourinary ED: Denies dysuria, hematuria or urinary frequency Musculoskeletal Musculoskeletal: Denies arthralgias, back pain, myalgias or neck pain Integumentary Denies abscess, Abrasions or rash Neurologic Neurologic: Denies headache(s) or weakness Psychiatric Psychiatric: Denies anxiety, depression or suicidal thoughts Endocrine Endocrinology: Denies polydipsia, polyphagia or polyuria Hematologic/Lymphatic Hematologic/Lymphatic: Denies easy bleeding, easy bruising or lymphadenopathy Allergic/Immunologic Allergic/Immunologic ED: Denies mouth swelling, tongue swelling or urticaria EXAM Physical Exam Const Vital Signs: 02/04/23 17:17 Temperature 97.8 F Temperature Source Temporal Pulse Rate 110 H Respiratory Rate 16 Blood Pressure 139/89 H Blood Pressure Mean 105 Pulse Ox 100 Oxygen Delivery Method Room Air Positive well nourished and well developed General Appearance ED: well developed and NAD HEENT Reports TM's clear and moist mucous membranes normocephalic and atraumatic; Negative for trauma or tenderness Tympanic Membrane ED: Yes TM's clear Eyes PERRL and EOMs intact bilaterally General Eye ED: Negative for pale conjunctiva or scleral icterus Neck no lymphadenopathy, supple and no JVD General: Negative for tenderness Chest Wall inspection of chest normal and palpation of chest normal Chest: Negative for tenderness Resp normal respiratory effort and clear to auscultation bilaterally Effort and Inspection: Negative for respiratory distress or pain with movement Auscultation: Negative for rhonchi, wheezes or diminished lung sounds Cardio regular rate, regular rhythm, S1 normal heart sound, S2 normal heart sound and no murmurs Peripheral Pulses: pulses 2+ throughout GI normal to inspection, nondistended, normoactive bowel sounds, soft to palpation, non-tender, non-distended and no masses Back/Spine no CVA tenderness and no thoracic nor lumbar tenderness Extremity normal to inspection General Extremety ED: Negative for edema General Extremity: Negative for edema Neuro oriented x3, CN's II-XII intact bilaterally, no sensory deficits noted and gait normal Sensorium / Orientation: awake, alert, oriented to person, oriented to place and oriented to time Motor Exam: strength 5/5 throughout and strength abnormal Psych mental status grossly normal Skin no rashes or lesions noted and no wounds MDM MDM MDM Narrative Medical decision making narrative: Presents with vomiting in . IV line established. She was medicated with Reglan 5 mg IV and given a liter of the same fluid bolus. She felt markedly improved. Urinalysis obtained was unremarkable. I did review her culture of her urine from last visit and this just showed mixed gram-positive bacteria likely contaminant. Patient CBC with differential showed white count 8.8 with hemoglobin of 13 and platelet count of 237. Chemistries unremarkable. Patient will be discharged home. I will write her for Phenergan rectal suppositories. Advised her to push fluids. She is to follow-up with her DIGITAL ADVISOR keep her appointment as scheduled. Advised to return if persistent vomiting, dehydration, or condition should worsen anyway. She is advised to discontinue the antibiotic as I do not feel it is indicated at this time. To continue with the cream for her yeast infection if she continues to have symptoms. Lab Data Attestation: I reviewed the patient's lab results. Labs: Laboratory Results - last 24 hr 02/04/23 02/04/23 17:40 18:00 WBC 8.8 RBC 4.70 Hgb 13.4 Hct 39.9 MCV 84.9 MCH 28.5 MCHC 33.6 RDW Std Deviation 42.9 RDW Coeff of Gregory 13.7 Plt Count 237 MPV 11.9 Immature Gran % (Auto) 0.200 Neut % (Auto) 77.3 H Lymph % (Auto) 16.5 L [place] % (Auto) 4.3 Eos % (Auto) 1.5 Baso % (Auto) 0.2 Absolute Neuts (auto) 6.8 Absolute Lymphs (auto) 1.46 Nucleated RBC % 0 Sodium 137 Potassium 3.8 Chloride 108 H Carbon Dioxide 25.0 Anion Gap 4 L BUN 5 L Creatinine 0.55 Estim Creat Clear Calc 145.59 Est GFR (MDRD) Af Amer 179 Est GFR (MDRD) Non-Af 148 BUN/Creatinine Ratio 9.1 L Glucose 116 H Calcium 9.3 Urine Color Yellow Urine Clarity Clear Urine pH 7.0 Ur Specific [place] 1.015 Urine Protein 15 H Urine Glucose (UA) Normal Urine Ketones Negative Urine Occult Blood Negative Urine Nitrite Negative Urine Bilirubin Negative Urine Urobilinogen 1 H Ur Leukocyte Esterase 25 H Urine RBC 0 SEEN Urine WBC 0-5 SEEN Ur Squamous Epith Cells 0-5 SEEN Urine Bacteria RARE Urine Mucus 1+ Discharge Plan Triage Chief Complaint: Nausea/Vomiting ED Provider: Gaetano Boyer Dx/Rx/DC Orders Clinical Impression: Hyperemesis gravidarum Instructions: ED Hyperemesis Gravidarum Prescriptions: New promethazine 25 mg suppository 25 mg TN Q6H PRN (Reason: nausea and vomiting) Qty: 12 0RF No Action cephalexin [cephalexin] 500 mg capsule 500 mg PO Q6 Qty: 28 0RF metronidazole 500 mg tablet 500 mg PO Q12H Patient Comments: TAKE 1 TABLET BY MOUTH TWICE DAILY FOR 7 DAYS miconazole nitrate 2 % cream 1 appful VAGINAL QHS Patient Comments: Use 1 Applicatorful vaginally daily at bedtime for 7 days. ondansetron 8 mg tablet,disintegrating 8 mg PO Q8H PRN (Reason: nausea and vomiting) Patient Comments: Dissolve 1 (ONE) TABLET on the tongue EVERY 8 HOURS NEEDED FOR NAUSEA 19 29 mg iron- 1 mg tablet 1 tab PO DAILY Patient Comments: Take 1 tablet by mouth once daily. Primary Care Provider: Care Physician,No Primary Referrals: Care Physician,No Primary [Primary Care Provider] - Activity Restrictions/Additional Instructions: Keep your appointment with your DIGITAL ADVISOR as scheduled Disposition Disposition: Home, Self Care Discharge Date/Time: 02/04/23 18:52
[2023-02-04] MEDS: Metoclopramide 10 MG/2 ML Vial 5 MG IV (17:48)
[2023-02-04] MEDS: 0.9% Normal Saline (1000mL) 1,000 ML 150 ML IV (17:49)
[2023-02-04 17:58] LABS: Absolute Lymphocyte Count 1.46 X10^3/uL (0.83-4.51); Absolute Neutrophil Count 6.8 X10^3/uL (2.0-7.7); Basophil# 0.02 X10^3/uL; Basophil% 0.2 % (0-1); Eosinophil# 0.13 X10^3/uL; Eosinophils% 1.5 % (0-5); Hematocrit 39.9 % (37-47); Hemoglobin 13.4 g/dL (12.0-15.0); Lymphocyte # 1.46 X10^3/ul (0.83-4.51); Lymphocyte % 16.5 % (19-41); Mean Corp Hgb Conc 33.6 g/dL (32-36); Mean Corpuscular Hgb 28.5 pg (27.0-32.0); Mean Corpuscular Volume 84.9 fL (81-99); Mean Platelet Vol. 11.9 fl (6.2-12.0); Monocyte# 0.38 X10^3/uL; Monocyte% 4.3 % (0-10); NRBC Flagged by Analyzer 0 % (0-5); Neutrophil # 6.82 X10^3/uL (2.7-7.7); Neutrophil % 77.3 % (47-70); Platelet Count 237 K/mm3 (150-450); RBC Distribution Width CV 13.7 % (11.6-14.6); RBC Distribution Width SD 42.9 fl (35.1-43.9); White Blood Count 8.8 K/mm3 (4.4-11.0)
[2023-02-04 18:03] LABS: Red Blood Cells-Urine 0 SEEN /hpf (0-5)
[2023-02-04 18:08] LABS: Color, Urine Yellow (Yellow); Glucose, Dipstick Normal (Normal); Ketone-Dipstick Negative (Negative); Leukocyte Esterase-Dipstick 25 /ul (Negative); Nitrite-Dipstick Negative (Negative); Occult Blood-Urine Negative /ul (Negative); Protein-Dipstick 15 mg/dl (Negative); Specific Gravity, Urine 1.015 (1.002-1.030); Urine Bilirubin Dipstick Negative (Negative); Urine Clarity Clear (Clear); Urine Urobilinogen 1 mg/dl (Normal)
[2023-02-04 18:12] LABS: Anion Gap 4 (5-15); BUN 5 mg/dL (7-18); BUN/Creat Ratio 9.1 RATIO (10-20); Calcium,Total 9.3 mg/dL (8.5-10.1); Chloride 108 mmol/L (98-107); Creatinine, Serum 0.55 mg/dL (0.55-1.02); EST Glomerular Filtration Rate 148 mL/min (>60); Est Glom Filt Rate - Afr Amer 179 mL/min (>60); Estimated Creatinine Clearance 145.59 ml/min; Glucose 116 mg/dL (74-106); Potassium 3.8 mmol/L (3.5-5.1); Sodium Level 137 mmol/L (136-145)
[2023-02-04 18:20] LABS: Bacteria RARE /hpf (None Seen); Mucous, Urine 1+ /hpf (<or=2+); Squamous Epithelial Cells - UA 0-5 SEEN /hpf (5-10); White Blood Cells 0-5 SEEN /hpf (0-5)
== END 2023-02-04 18:52 | disposition home or self-care (01) ==
PROVIDERS: Emergency Provider Emergency Medicine; Visit Provider Emergency Medicine
DX: O21.0 Mild hyperemesis gravidarum (principal); O99.331 Smoking (tobacco) complicating pregnancy, first trimester; F17.290 Nicotine dependence, other tobacco product, uncomplicated; Z3A.11 11 weeks gestation of pregnancy
CPT/HCPCS: 80048; 81001; 85025; 96361; 96374; 99283; J7030; A4216

== ENCOUNTER 2023-04-26 18:30 | Emergency (ER) | payer MEDICAID, SELFPAY ==
[2023-04-26 18:31] VITALS: BP 125/79; PULSE 113; RESP 18; TEMP 37; O2SAT 99; BMI 29.5
--- NOTE | 2023-04-26 18:40 | EDS_ITS ---
<Statement entered by Kylee Solis MD - 04/27/23 00:42> I have personally performed a face to face assessment of the patient and have reviewed the SMOOTH Note. Patient presents secondary to nausea and vomiting after eating fast food last night. She is currently 22 weeks . She is feeling the baby move today and has had no bleeding or spotting. Patient sitting upright in bed no acute distress. Nontoxic-appearing. Head and neck examination unremarkable. Moist mucous membranes. Heart is regular rate and rhythm. Lung sounds are clear. Abdomen is soft, gravid, nontender. Patient given Reglan and IV fluids. BMP obtained and unremarkable. heart tones are normal. Patient feels improved will be given a prescription for Reglan to use at home if needed. She will follow-up with her JAVA PROGRAMMER ANALYST at [facility]. Return instructions given. HPI History of Present Illness Chief Complaint: Nausea/Vomiting Narrative Narrative: 22-year-old female is approximately 22 weeks . She works at [email or web address] and ate [employer] fries at 7:30 PM last night and an hour later started vomiting. She has vomited today every time she tries to drink fluids. Zofran did not help. She has no abdominal pain or bleeding and feels the baby moving. She had a normal bowel movement yesterday and denies any diarrhea or urinary symptoms. She has no other health conditions. [facility] Medical History Acid reflux Asthma Preeclampsia Home Medications metoclopramide HCl 5 mg tablet (Reglan) 5 mg PO Q6H PRN nausea and vomiting 2 days #8 tabs 04/26/23 [Rx Last Taken Unknown] Allergy/AdvReac Type Severity Reaction Status Date / Time No Known Allergies Allergy Verified 04/26/23 18:31 Social History Smoking Status: Former smoker ROS ROS ED ROS Narrative Constitutional: Negative for fever, chills, malaise. CVS: Negative for chest pain. GI: Positive for nausea, vomiting. Negative for abdominal pain, diarrhea, melena, hematochezia. : Negative for dysuria. EXAM Physical Exam Narrative Exam Narrative: CONST: Patient sitting in no acute distress. EYES: Normal inspection. NECK: Normal inspection. RESP: No respiratory distress, CTAB. CVS: Regular rate and rhythm, no murmur, no gallop. ABD: Gravid abdomen is soft and nontender, no guarding or rebound. SKIN: Color normal, no rash, warm, dry, intact. EXTREMITIES: Normal appearance, no pedal edema. NEURO: Oriented x4. PSYCH: Normal affect. Const Vital Signs: 04/26/23 18:31 04/26/23 19:30 Temperature 98.6 F 98.6 F Temperature Source Temporal Pulse Rate 113 H 87 Respiratory Rate 18 16 Blood Pressure 125/79 H 118/71 Blood Pressure Mean 94 86 Pulse Ox 99 100 Oxygen Delivery Method Room Air MDM MDM MDM Narrative Medical decision making narrative: Patient has had 1 day of nausea and vomiting. She is 22 weeks . She has no abdominal pain or spotting. She appears well and nontoxic. HR is 113 wi th otherwise normal vital signs. She has a soft, nontender gravid abdomen and normal heart tones at 156. After IV fluids and Reglan she is drinking water and Sprite at the bedside. She feels improved. BMP overall is unremarkable and there is no acute kidney injury. After IV fluids her heart rate improved to 87. I prescribed a few Reglan tablets for home per her request. Return precautions were discussed and she was discharged in stable condition. Lab Data Labs: Laboratory Results - last 24 hr 04/26/23 18:45 Sodium 133 L Potassium 4.2 Chloride 109 H Carbon Dioxide 17.0 L Anion Gap 7 BUN 7 Creatinine 0.53 L Estim Creat Clear Calc 176.16 Est GFR (MDRD) Af Amer 184 Est GFR (MDRD) Non-Af 152 BUN/Creatinine Ratio 13.1 Glucose 96 Calcium 9.2 Discharge Plan Triage Chief Complaint: Nausea/Vomiting ED Midlevel Provider: Lou Byers ED Provider: Kylee Solis Dx/Rx/DC Orders Clinical Impression: Nausea and vomiting Instructions: ED Vomiting (Adult) Prescriptions: New metoclopramide HCl [Reglan] 5 mg tablet 5 mg PO Q6H PRN (Reason: nausea and vomiting) 2 Days Qty: 8 0RF Stand Alone Forms: ED Work / School Excuse Primary Care Provider: Care Physician,No Primary Referrals: Care Physician,No Primary [Primary Care Provider] - Disposition Disposition: Home, Self Care Discharge Date/Time: 04/26/23 19:59
[2023-04-26] MEDS: 0.9% Normal Saline (1000mL) 1,000 ML 999 ML IV (18:49)
[2023-04-26] MEDS: Metoclopramide 10 MG/2 ML Vial 5 MG IV (18:49)
[2023-04-26 19:12] LABS: Anion Gap 7 (5-15); BUN 7 mg/dL (7-18); BUN/Creat Ratio 13.1 RATIO (10-20); Calcium,Total 9.2 mg/dL (8.5-10.1); Chloride 109 mmol/L (98-107); Creatinine, Serum 0.53 mg/dL (0.55-1.02); EST Glomerular Filtration Rate 152 mL/min (>60); Est Glom Filt Rate - Afr Amer 184 mL/min (>60); Estimated Creatinine Clearance 176.16 ml/min; Glucose 96 mg/dL (74-106); Potassium 4.2 mmol/L (3.5-5.1); Sodium Level 133 mmol/L (136-145)
[2023-04-26 19:30] VITALS: BP 118/71; PULSE 87; RESP 16; TEMP 37; O2SAT 100
== END 2023-04-26 19:59 | disposition home or self-care (01) ==
PROVIDERS: Physician Assistant; Emergency Provider Emergency Medicine; Visit Provider Emergency Medicine
DX: O21.9 Vomiting of pregnancy, unspecified (principal); Z87.891 Personal history of nicotine dependence; Z3A.22 22 weeks gestation of pregnancy
CPT/HCPCS: 80048; 96360; 96361; 96374; 99283; J7030; A4216

== ENCOUNTER 2023-06-13 04:25 | Outpatient (CLI) | payer MEDICAID, SELFPAY ==
[2023-06-13 04:39] VITALS: PULSE 89; O2SAT 99
[2023-06-13 04:42] VITALS: BMI 31.1
[2023-06-13 04:44] VITALS: PULSE 87; O2SAT 98
[2023-06-13 04:46] VITALS: BP 126/66; PULSE 89; RESP 16; TEMP 36.7; O2SAT 99
[2023-06-13 05:00] VITALS: BP 117/63; PULSE 85
[2023-06-13 05:16] VITALS: BP 117/66; PULSE 82
--- NOTE | 2023-06-13 07:24 | OB.TRI.NOTE ---
HPI - General General Date of Admission: 06/13/23 Date of Service: 06/13/23 Chief Complaint: Epigastric pain HPI Narrative DARREL PHILLIPS, is a 23 F who presents with epigastric pain that woke her from sleep. Came to ED by EMS. Per EMS had elevated BP in squad and ED also stated elevated BP. Good movement. No contractions. Pain resolved by presentation to maternity unit. BPS on the until were all within normal. Maternal Data Information Final KIARA: 08/28/23 Gestational age: 29+1 PFSH PFSH Medical History Acid reflux Asthma Preeclampsia Home Medications aspirin 81 mg tablet,delayed release mg 06/13/23 [History Last Taken 06/12/23] vit no.95-ferrous fumarate 28 mg-folic acid 800 mcg tablet () 1 tab PO DAILY 06/13/23 [History Last Taken Unknown] Allergy/AdvReac Type Severity Reaction Status Date / Time No Known Allergies Allergy Verified 06/13/23 04:43 Social History Smoking Status: Former smoker History Elective abortions Hx Para 2 Spontaneous abortions Hx # Term Pregnancies Ectopic pregnancies Hx # Pregnancies Multiple births # of living children NST FHR Rate Baby A Baseline: 145 Variability:: Moderate Accelerations:: 15 x 15 Decelerations:: None NST Reactive:: Yes FHR Category:: Category I Uterine Activity:: none Assessment & Plan (1) 29 weeks gestation of : (2) Gastroesophageal reflux during in third trimester, antepartum:
== END 2023-06-13 05:34 | disposition home or self-care (01) ==
LOC: WPOUT 04:27 → WP 04:27
PROVIDERS: Referring Provider Obstetrics & Gynecology; Visit Provider Obstetrics & Gynecology
DX: O99.613 Diseases of the digestive system complicating pregnancy, third trimester (principal); K21.9 Gastro-esophageal reflux disease without esophagitis; Z3A.29 29 weeks gestation of pregnancy
CPT/HCPCS: 59025; 59050; 99221; G0378

== ENCOUNTER 2023-08-24 07:16 | Inpatient (IN) | payer MEDICAID, SELFPAY ==
[2023-08-24] VITALS (55 sets, daily range): BP systolic 82–143; BP diastolic 43–89; PULSE 93–157; RESP 16–20; TEMP 36.6–37.3; O2SAT 96–100; BMI 32.7
[2023-08-24] MEDS: Lactated Ringers 1,000 ML 50 ML IV (07:45)
[2023-08-24 08:26] LABS: Absolute Neutrophil Count 7.2 X10^3/uL (2.0-7.7); Basophil# 0.04 X10^3/uL; Basophil% 0.4 % (0-1); Eosinophil# 0.59 X10^3/uL; Eosinophils% 5.7 % (0-5); Hematocrit 32.6 % (37-47); Hemoglobin 10.6 g/dL (12.0-15.0); Lymphocyte % 15.4 % (19-41); Mean Corp Hgb Conc 32.5 g/dL (32-36); Mean Corpuscular Hgb 26.9 pg (27.0-32.0); Mean Corpuscular Volume 82.7 fL (81-99); Mean Platelet Vol. 12.5 fl (6.2-12.0); Monocyte# 0.86 X10^3/uL; Monocyte% 8.3 % (0-10); NRBC Flagged by Analyzer 0 % (0-5); Neutrophil # 7.24 X10^3/uL (2.7-7.7); Neutrophil % 69.5 % (47-70); Platelet Count 224 K/mm3 (150-450); RBC Distribution Width CV 13.5 % (11.6-14.6); RBC Distribution Width SD 40.6 fl (35.1-43.9); Red Blood Count 3.94 M/mm3 (4.2-5.4); White Blood Count 10.4 K/mm3 (4.4-11.0)
[2023-08-24] MEDS: 0.9% Normal Saline Single 100 ML IV.SOLN. INTRA-UTER (08:30)
[2023-08-24] MEDS: Oxytocin 15 Units/NS 250ml 15 UNITS/250 ML IV.SOLN 2 UNITS IV (08:40)
--- NOTE | 2023-08-24 08:51 | HP.PCM.OB_ITS ---
HPI - General General Date of Admission: 08/24/23 HPI Narrative DARREL PHILLIPS, is a 23 F who presents for elective induction of labor at 39w3d. . Maternal Data Information KIARA Calculator Estimated Delivery Date Method Current WG Current Estimate 08/28/23 Manual 39w 3d [facility] Medical History Acid reflux Asthma Preeclampsia Home Medications ?Medication ?Instructions ?Recorded ?Last Taken ?Type aspirin 81 mg tablet,delayed mg 06/13/23 06/12/23 History release vit no.95-ferrous 1 tab PO DAILY 06/13/23 Unknown History fumarate 28 mg-folic acid 800 mcg tablet () Allergy/AdvReac Type Severity Reaction Status Date / Time No Known Allergies Allergy Verified 06/13/23 04:43 Social History Smoking Status: Former smoker History Elective abortions Hx Para 2 Spontaneous abortions Hx # Term Pregnancies Ectopic pregnancies Hx # Pregnancies Multiple births # of living children NST FHR Rate Baby A Baseline: 155 Variability:: Minimal Accelerations:: 15 x 15 Decelerations:: None FHR Category:: Category II Uterine Activity:: Irregular ROS Constitutional Constitutional: Reports systems reviewed and no addt'l complaints, except as documented; Denies headache(s) Eyes Eyes: Denies acute decrease in peripheral vision, blurry vision or change in vision ENT HEENT: Reports systems reviewed and no addt'l complaints, except as documented Cardiovascular Cardiovascular: Denies chest pain or dizziness Respiratory/Chest Respiratory/Chest: Denies cough, dyspnea, dyspnea on exertion, shortness of breath at rest or shortness of breath with exertion Gastrointestinal Gastrointestinal: Denies abdominal pain, diarrhea, nausea or vomiting Genitourinary Genitourinary: Denies abdominal discomfort Musculoskeletal Musculoskeletal: Denies limited range of motion Integumentary Integumentary: Reports systems reviewed and no addt'l complaints, except as documented Neurologic Neurologic: Reports systems reviewed and no addt'l complaints, except as documented Psychiatric Psychiatric: Reports systems reviewed and no addt'l complaints, except as documented Endocrine Endocrinology: Reports systems reviewed and no addt'l complaints, except as documented Hematologic/Lymphatic Hematologic/Lymphatic: Reports systems reviewed and no addt'l complaints, except as documented Allergic/Immunologic Allergic/Immunologic: Reports systems reviewed and no addt'l complaints, except as documented Vital Signs Vital Signs Vital Signs: 08/24/23 07:14 08/24/23 07:14 08/24/23 07:19 Temperature Temperature Source Pulse Rate 127 H 120 H Respiratory Rate Blood Pressure 142/89 H BP Systolic 142 BP Diastolic 89 Pulse Ox 08/24/23 07:19 08/24/23 08:35 08/24/23 08:35 Temperature Temperature Source Pulse Rate 103 H Respiratory Rate Blood Pressure 128/74 H BP Systolic 128 BP Diastolic 74 Pulse Ox 97 08/24/23 08:35 08/24/23 08:35 08/24/23 08:35 Temperature 98.6 F Temperature Source Temporal Pulse Rate Respiratory Rate Blood Pressure BP Systolic BP Diastolic Pulse Ox 97 08/24/23 08:35 Temperature Temperature Source Pulse Rate Respiratory Rate 18 Blood Pressure BP Systolic BP Diastolic Pulse Ox Weight Weight: 196 lb 10.437 oz Body Mass Index (BMI) 32.7 Physical Exam Const alert and oriented x3 General Appearance: cooperative Orientation / Consciousness: awake, oriented to person, oriented to place and oriented to time Exam Limitations: no limitations HEENT normocephalic Head and Scalp: normal to inspection, normocephalic and atraumatic Face and Sinus: normal facial exam Eyes General Eye: normal appearance of both eyes Neck full ROM Chest Chest: symmetrical chest wall rise Resp normal respiratory effort and normal air movement Auscultation: clear to auscultation bilaterally Cardio regular rate, regular rhythm, S1 normal heart sound, S2 normal heart sound, no murmurs, no rub, no gallops and no clicks GI normal to inspection, nondistended, normoactive bowel sounds and non-tender appearance of the vagina normal Bladder / Kidney Exam: no CVA tenderness Manual OB Exam: estimated gestational size appropriate, presentation cephalic, dilated 1cm, effaced 50, station -2 and other womack inserted through cervix, 30ml NS instilled Back/Spine normal ROM Extremity normal to inspection and full ROM Skin no rashes or lesions noted Neuro oriented x3, CN's II-XII intact bilaterally and moves all extremities Sensorium / Orientation: awake, alert and oriented to person Motor Exam: clonus absent Deep Tendon Reflexes: Rt Patellar (L4): 2+ and Lt Patellar (L4): 2+ Labs Labs Labs: Blood Type A POSITIVE Antibody Screen NEGATIVE Hct 32.6 % (37-47) L Hgb 10.6 g/dL (12.0-15.0) L Obstetrics Ultrasound Rhogam given: No Assessment & Plan (1) Encounter for induction of labor: (2) History of pre-eclampsia: (3) Short interval between pregnancies complicating , antepartum: (4) History of marijuana use: (5) Chlamydia infection affecting : PLAN: Plan 1) Admit to labor and delivery 2) Routine labs 3) BP elevated upon admission, preeclampsia labs 4) Planning epidural for pain management 5) [place]omack with pitocin for induction 6) collaborative physician, updated on patient status, above assessment and plan
[2023-08-24 09:23] LABS: Syphilis Antibodies Non-reactive
[2023-08-24 11:37] LABS: Amphetamine Urine VISTA NEGATIVE (<1000 ng/mL); Barbiturate Urine VISTA NEGATIVE (< 200 ng/mL); Benzodiazepine Urine VISTA NEGATIVE (< 200 ng/mL); Cocaine Urine VISTA NEGATIVE (< 300 ng/mL); Ecstacy Urine VISTA NEGATIVE (< 500 ng/mL); Methadone Urine VISTA NEGATIVE (< 300 ng/mL); PCP Urine VISTA NEGATIVE (< 25 ng/mL); THC Urine VISTA NEGATIVE (< 50 ng/mL); Vista UDS pH Range 5
[2023-08-24] MEDS: LACTATED RINGERS 500 ML 999 ML IV ×2 (12:14→23:05)
--- NOTE | 2023-08-24 12:30 | PN.OBGYN_ITS ---
Subjective Subjective Coping in bed, family at bedside. Objective Data Objective Data Vital Signs: Vital Signs Temp Pulse Resp BP Pulse Ox 98.5 F 103 H 18 120/74 97 08/24/23 11:37 08/24/23 11:37 08/24/23 11:37 08/24/23 11:37 08/24/23 11:37 Weight: 196 lb 10.437 oz Body Mass Index (BMI) 32.7 Intake & Output: Intake and Output for Last 24 Hours 08/22/23 08/23/23 08/24/23 23:59 23:59 23:59 Intake Total 131.67 / 131.67 Output Total 150 / 150 Balance -18.33 / -18.33 Lab / Micro Data 08/24/23 07:45 Labs: Laboratory Results - last 24 hr 08/24/23 07:45: WBC 10.4, RBC 3.94 L, Hgb 10.6 L, Hct 32.6 L, MCV 82.7, MCH 26.9 L, MCHC 32.5, RDW Std Deviation 40.6, RDW Coeff of Gregory 13.5, Plt Count 224, MPV 12.5 H, Immature Gran % (Auto) 0.700, Neut % (Auto) 69.5, Lymph % (Auto) 15.4 L, [place] % (Auto) 8.3, Eos % (Auto) 5.7 H, Baso % (Auto) 0.4, Absolute Neuts (auto) 7.2, Absolute Lymphs (auto) 1.60, Nucleated RBC % 0, Syphilis Total Ab Non- reactive, Blood Type A POSITIVE, Antibody Screen NEGATIVE 08/24/23 10:55: Urine Opiates Screen NEGATIVE, Urine Methadone Screen NEGATIVE, Ur Barbiturates Screen NEGATIVE, Ur Phencyclidine Scrn NEGATIVE, Ur Amphetamines Screen NEGATIVE, MDMA (Ecstasy) Screen NEGATIVE, U Benzodiazepines Scrn NEGATIVE, Urine Cocaine Screen NEGATIVE, U Cannabinoids Screen NEGATIVE, Ur Drug Screen Comment Physical Exam Manual OB Exam: presentation cephalic, dilated 4, effaced 70, station -1 and other AROM clear fluid NST FHR Rate Baby A Baseline: 145 Variability:: Moderate Accelerations:: 15 x 15 Decelerations:: None NST Reactive:: Yes FHR Category:: Category I Uterine Activity:: Every 2 minutes Assessment & Plan (1) Encounter for elective induction of labor: (2) 39 weeks gestation of : PLAN: Plan 1) Continue with active management 2) Pitocin per protocol 3) AROM 4) Epidural for pain management 5) collaborative physician, updated on patient status, above assessment and plan.
[2023-08-24] MEDS: fentaNYL-bupivacaine (epidural) 100 ML BAG EPIDURAL ×2 (14:08→19:16)
[2023-08-24] MEDS: Lactated Ringers 1,000 ML 200 ML IV (22:19)
[2023-08-24] MEDS: Ondansetron 4 MG/2 ML Vial IV (22:28)
--- NOTE | 2023-08-24 23:59 | EX.PCM.OBRPT ---
Assessment & Plan (1) Shoulder dystocia, delivered: Maternal Data Information KIARA Calculator Estimated Delivery Date Method Current WG Current Estimate 08/28/23 Manual 39w 4d Vaginal Delivery Maternal Presentation Maternal Presentation: Elective Induction Type of Induction: Pitocin and Vaughn Bulb Operative Information Date of Procedure: 08/25/23 Pre-Operative Diagnosis: Elective Induction of Labor Post-Operative Diagnosis: , shoulder dystocia Surgery / Procedure Performed: Spontaneous Vaginal Delivery Type of Anesthesia: Epidural Estimated Blood Loss: 350 ml Time of Delivery: 23:44 Findings Description of Procedure: Progressed to complete with urge to push. Epidural for pain management. of viable female infant over intact perineum. APGARS 7,9 respectively. Infant head delivered with body not forthcoming.Shoulder dystocia noted and staff called to room. McRobert's Position with suprapubic pressure. Attempted to remove posterior arm but not forthcoming. Tamayo maneuver and shoulder released, delivered. Shoulder dystocia lasted approximately 1minute 23 seconds. Placed on maternal abdomen, Mouth and nares suctioned for secretions. Cord clamped and cut and passed to awaiting nursery staff. Poor tone and weak cry. Pitocin started for active 3rd stage management. Placenta delivered intact via mary, 3 vessel cord intact. Perineum inspected and revealed intact. Fundus firm and hemostasis achieved. EBL 350ml. Mom and baby stable, planning to bottlefeed. Family bonding well. notified of delivery. Presentation: Vertex and DEBO Amniotic Membrane Rupture Type: Artificial Amniotic Fluid Description: Clear Placental Delivery Description: Spontaneous Placenta Disposition: [facility] Cord Vessel Description: 3 Vessels Cord Entanglement: None Infant A Gender: Female (1 minute): 7 (5 minute): 9 Delayed Cord Clamping: No Post Vaginal Delivery Medications Given After Delivery: IV Pitocin Episiotomy Description: None Laceration: None Complication Complications: - (Shoulder Dystocia)
[2023-08-25] VITALS (41 sets, daily range): BP systolic 98–143; BP diastolic 53–87; PULSE 100–142; RESP 16–18; TEMP 36.3–37.6; O2SAT 95–100
[2023-08-25] MEDS: Oxytocin 15 Units/NS 250ml 15 UNITS/250 ML IV.SOLN 83 UNITS IV (00:20)
[2023-08-25] MEDS: Ibuprofen 600 MG Tablet PO ×3 (03:32→19:36)
[2023-08-25 05:25] LABS: Absolute Lymphocyte Count 1.62 X10^3/uL (0.83-4.51); Absolute Neutrophil Count 11.9 X10^3/uL (2.0-7.7); Basophil# 0.04 X10^3/uL; Basophil% 0.3 % (0-1); Eosinophil# 0.06 X10^3/uL; Eosinophils% 0.4 % (0-5); Hematocrit 27.3 % (37-47); Hemoglobin 8.8 g/dL (12.0-15.0); Lymphocyte # 1.62 X10^3/ul (0.83-4.51); Lymphocyte % 10.8 % (19-41); Mean Corp Hgb Conc 32.2 g/dL (32-36); Mean Corpuscular Hgb 26.9 pg (27.0-32.0); Mean Corpuscular Volume 83.5 fL (81-99); Mean Platelet Vol. 12.2 fl (6.2-12.0); Monocyte# 1.32 X10^3/uL; Monocyte% 8.8 % (0-10); NRBC Flagged by Analyzer 0 % (0-5); Neutrophil # 11.94 X10^3/uL (2.7-7.7); Neutrophil % 79.4 % (47-70); Platelet Count 180 K/mm3 (150-450); RBC Distribution Width CV 13.7 % (11.6-14.6); RBC Distribution Width SD 41.6 fl (35.1-43.9); Red Blood Count 3.27 M/mm3 (4.2-5.4)
[2023-08-25] MEDS: Acetaminophen 500 MG Tablet 1000 MG PO ×3 (07:34→22:46)
--- NOTE | 2023-08-25 08:46 | PCM.PN.OB ---
Subjective Subjective Doing well. Ambulating and voiding without difficulty. Bottle feeding. Pain controlled Objective Data Objective Data Vital Signs: Vital Signs Temp Pulse Resp BP Pulse Ox O2 Del Method 97.8 F 100 16 127/81 H 99 Room Air 08/25/23 07:55 08/25/23 07:55 08/25/23 07:55 08/25/23 07:55 08/25/23 07:55 08/25/23 07:55 Oxygen Delivery Method Room Air Weight: 89.2 kg Body Mass Index (BMI) 32.7 Intake & Output: Intake and Output for Last 24 Hours 08/23/23 08/24/23 08/25/23 23:59 23:59 23:59 Intake Total 1695.01 / 2031.68 1217.49 / 1217.49 Output Total 1075 / 1075 850 / 850 Balance 620.01 / 956.68 367.49 / 367.49 Lab / Micro Data 08/25/23 05:15 Labs: Laboratory Results - last 24 hr 08/24/23 07:45: Syphilis Total Ab Non-reactive, Blood Type A POSITIVE, Antibody Screen NEGATIVE 08/24/23 10:55: Urine Opiates Screen NEGATIVE, Urine Methadone Screen NEGATIVE, Ur Barbiturates Screen NEGATIVE, Ur Phencyclidine Scrn NEGATIVE, Ur Amphetamines Screen NEGATIVE, MDMA (Ecstasy) Screen NEGATIVE, U Benzodiazepines Scrn NEGATIVE, Urine Cocaine Screen NEGATIVE, U Cannabinoids Screen NEGATIVE, Ur Drug Screen Comment 08/25/23 05:15: WBC 15.0 H, RBC 3.27 L, Hgb 8.8 L, Hct 27.3 L, MCV 83.5, MCH 26.9 L, MCHC 32.2, RDW Std Deviation 41.6, RDW Coeff of Gregory 13.7, Plt Count 180, MPV 12.2 H, Immature Gran % (Auto) 0.300, Neut % (Auto) 79.4 H, Lymph % (Auto) 10.8 L, [place] % (Auto) 8.8, Eos % (Auto) 0.4, Baso % (Auto) 0.3, Absolute Neuts (auto) 11.9 H, Absolute Lymphs (auto) 1.62, Nucleated RBC % 0 ROS Constitutional Constitutional: Denies fatigue, fever(s) or malaise Eyes Eyes: Denies change in vision ENT HEENT: Denies dizziness or headache(s) Respiratory/Chest Respiratory/Chest: Denies cough or dyspnea Gastrointestinal Gastrointestinal: Denies change in bowel habits Genitourinary Genitourinary: Denies burning urination or genital lesions Integumentary Integumentary: Denies rash Neurologic Neurologic: Denies confusion, dizziness, headache(s), numbness or weakness Physical Exam Const alert and no apparent distress Narrative: Fundus firm, below umbilicus. Assessment & Plan (1) Shoulder dystocia, delivered: (2) (spontaneous vaginal delivery):
--- NOTE | 2023-08-25 13:58 | CASEMGMT ---
Social Work Assessment Labor and Delivery Unit Patient Address:[facility] [address] [place] [address] Phone number: [phone] Date of Referral: 08/24/23 x2. 08/25/23 Time of Referral:? 0849, 0910, 0637 Referred By: Elvira Guillory Date of Intervention: ??08/25/23 Time of Intervention:?1000 Reason for Referral:?Substance use x2, resources/ THC Sw completed chart review and acknowledges social work consult due to maternal substance use and need for resources. Sw presented to bedside and introduced self to mother of baby (JOSE- Staci). Sw explained sw role and completed psychosocial assessment. Sw also had MOB complete SDOH. History obtained from: medical records, MOB Household composition: JOSE states that currently she has her own housing, where she resides with her three other children (Bere-4, Emile- 2, and Patel). MOB states that her older three children are father'd by Cali who she is now in a relationship with. MOB states that Jamie is now residing with her and their three children. MOB states that when baby is ready for discharge she will also reside with them. Patient's parent/guardian status:? ?MOB reports that she and the father of baby (CINDY Merino) dated for 1.5 years and then they broke up. MOB states that when they broke up they were still being intimate with each other which resulted in the conception of this baby. MOB states that they remain broken up, and JOSE is now back together with the father of her other three children. MOB states that She and Angelique plan on co-parenting and are working out a schedule of when he will have the baby. MOB states that at this time he is asking to have her on the weekends. - MOB denies any history of domestic violence or intimate partner violence with either of these gentlemen. - Cherelle was informed in huddle that another man presented to the unit yesterday indicating that he believes that he is the father of the baby, however staff did not have him listed as a support person and it was not visiting house. Staff reached out to MOB who indicated that she did not know who he was and did not want him to visit. However this person told staff that MOB was texting with him. - While meeting with MOB sw asked her about this situation. JOSE reports that she knows of this person, but he is not the father of her baby. MOB states that she knows who the father of her baby is, and denies ever being in a relationship with this other person. Sw informed JOSE that this person was provided information on getting paternity testing done. JOSE stated that is fine because she already knows who the father is. Medical History: ?JOSE is 23 year old female who is 6, para 3- now 4 following labor and delivery of . JOSE received routine care during with [facility]. JOSE presented to hospital for an induction of labor on 08/24/23 at 39 weeks gestation. Baby girl, Alexander, was born via vaginal delivery weighing 8lb with apgars of 7 and 9 at one and five minutes of life, respectfully. Educational Status:? JOSE states that she dropped out of school after her Freshman year in high school. Financial Status: JOSE was previously working at [employer], but states that she no longer works there and does not have intentions on returning. JOSE states that when baby is a little older she will look for new employment. 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 Supplies:?? JOSE states that she has everything that she needs for baby including: car seat, safe sleep space, clothes, diapers and wipes. Childcare/Caregiver(s):?JOSE states that she will be the primary caregiver to baby along with FOB who will have baby on the weekends. Transportation:?? JOSE reports that she does not drive. Current boyfriend or father of the baby help her to get to scheduled doctors appointments. Cherelle provided JOSE with information on how to access/ request transportation through her insurance. Programs/Agencies Involved: ???JOSE is receiving support through SNAP, insurance through [employer], [employer], and WIC. Children Services/Legal Issues:??? JOSE states that she had a prior open case with Children Services in 2019 due to latch issues with her daughter that impacted her growth/ weight gain as a . JOSE states that they came out to her home and met with her and then told her it was a waste of their time. Sw informed JOSE that cherelle is mandated to make a referral to Children Services due to her marijuana use during . MOB expressed understanding. - Cherelle called [facility] and spoke to hotline screener, Carmita. Behavioral Health Issues: ??Mental Health History:??MOB denies mental health history or diagnoses for herself, FOB and her boyfriend. ? Substance Use History: MOB used marijuana in the first trimester of her . MOB states that she used to help with her nausea. ?? Family History: MOB denies any family history of addiction or significant mental health diagnoses. ? Drug Screens: ??MOB and baby urine screen were negative, baby meconium is currently pending. Family/Social Stressors:? MOB denies any issues, concerns or stressors at this time. MOB seemed un-phased that someone else presented to hospital claiming to be potential father of baby. MOB states that she knows who she has been with and who the baby of the father is. Support Systems: MOB identifies a friend Mellissa as one of her biggest supports, stating that she is like an aunt to her. MOB states that she also has a friend heidi Joyner who is a cousin to her older kids and one of her biggest supports. Depression/Shaken Baby/Safe Sleeping:? Sw educated MOB on mood and anxiety disorders, risk factors and the importance of seeking help and support should she experience symptoms. MOB expressed understanding. Sw educated MOB to shaken baby prevention and ABCs of safe sleep. MOB expressed understanding. ASSESSMENT:? Met with MOB at bedside. MOB was holding baby and reports to have a connection with her. MOB made eye contact throughout completion of assessment and answered questions asked. MOB expressed understanding of need for sw to make referral to Children Services and reports that she is not worried about it. This is first baby for MOB and FOB, however baby was conceived when they were not in a relationship with one another and while MOB is working on getting back together with the other father of her older children. MOB has everything that she needs for baby and has supports in place. Safe Plan of Care for infant related to substance use:? JOSE denies intentions of smoking marijuana at all now that baby has been born. MOB stopped smoking when she was 10 weeks . PLAN:? MOB and baby to be discharged when medically ready. ?No other services requested or indicated. Xuan Wallace, [employer], LOCK UP WORKER
--- NOTE | 2023-08-25 15:14 | NURSING ---
pt HR elevated 140-150 at time of VS. Pt denies feeling like her heart is racing. assessment is WNL. Pt does feel warm to touch, temp 99.7. room feels warm. Pt assisted up to BR and tolerated well. Will call Dr. Weiss.
[2023-08-26 00:40] VITALS: BP 119/79; PULSE 108; RESP 16; TEMP 36.1; O2SAT 98
--- NOTE | 2023-08-26 06:41 | PCM.PN.OB ---
Subjective Subjective Doing well. No complaints. Pain minimal. Lochia light. Voiding and ambulating without difficulty. Bottle feeding. Objective Data Objective Data Vital Signs: Vital Signs Temp Pulse Resp BP Pulse Ox O2 Del Method 97.0 F L 108 H 16 119/79 98 Room Air 08/26/23 00:40 08/26/23 00:40 08/26/23 00:40 08/26/23 00:40 08/26/23 00:40 08/26/23 00:40 Oxygen Delivery Method Room Air Weight: 89.2 kg Body Mass Index (BMI) 32.7 Intake & Output: Intake and Output for Last 24 Hours 08/24/23 08/25/23 08/26/23 23:59 23:59 23:59 Intake Total 1695.01 / 2031.68 1217.49 / 1217.49 Output Total 1075 / 1075 850 / 850 Balance 620.01 / 956.68 367.49 / 367.49 Lab / Micro Data 08/25/23 05:15 Physical Exam Const alert and no apparent distress Narrative: Fundus firm, below umbilicus. Assessment & Plan (1) (spontaneous vaginal delivery): (2) Shoulder dystocia, delivered: PLAN: Plan Discharge today. Home with oral iron.
--- NOTE | 2023-08-26 07:00 | PCM.DC.SUM ---
Providers Date of Admission: 08/24/23 Date of Discharge: 08/26/23 Primary Care Physician: No Primary Care Phys Reason For Visit: VAGINAL DELIVERY Diagnosis Discharge Diagnosis (1) (spontaneous vaginal delivery): Status: Acute Code(s): O80 - Encounter for full-term uncomplicated delivery (2) Shoulder dystocia, delivered: Status: Acute Code(s): O66.0 - Obstructed labor due to shoulder dystocia Plan Discharge today. Home with oral iron. Medications at Discharge Home Medications vit no.95-ferrous fumarate 28 mg-folic acid 800 mcg tablet () 1 tab PO DAILY vitamin 06/13/23 acetaminophen 500 mg tablet 1,000 mg (2 x 500 mg) PO Q6H PRN PRN Pain 1-10 Or Fever #30 tabs 08/26/23 ferrous sulfate 325 mg (65 mg iron) tablet (FeroSul) 325 mg PO DAILY 60 days #30 tabs 08/26/23 ibuprofen 600 mg tablet 600 mg PO Q6H PRN PRN Pain Score 1-10 #30 tabs 08/26/23 Hospital Course Operations None Procedures None Summary of Care Provided Minutes Spent on Discharge: 21 Hospital Course: Elective IOL at term. Delivery complicated by shoulder dystocia. Post course uncomplicated. Bottle feeding at discharge Physical Exam Const alert and no apparent distress Narrative: Fundus firm, below umbilicus. Weight / BMI Weight Weight: 89.2 kg Body Mass Index (BMI) 32.7 ABG / Lab / Microbiology Data 08/25/23 05:15 D/C Instructions May resume sexual activity in: 6 weeks Please Follow Up With: Alma Galan MD When: Follow up with our office in 1-2 and 6 weeks or as needed. [phone] Meaningful Use Info Meaningful Use Meaningful Use Diagnoses (Choose all that apply): None applicable Ischemic Stroke Statin Dosing Therapy Reference: STATIN DOSE THERAPY REFERENCE: * Patients > 75 years receive moderate or high dose statin therapy. * Patients 75 years or YOUNGER should receive HIGH intensity statin dose unless contraindicated. You will be required to document reason for non-treatment if statin daily dose does not meet guidelines. HIGH DOSE STATIN THERAPY DAILY Atorvastatin > than or = to 40 mg Rosuvastatin > than or = to 20 mg Amlodipine + Atorvastatin > than or = to 2.5/40 mg Ezetimibe + Simvastatin 10/80 mg Simvastatin 80mg Discharge Plan Admission Admit Date/Time: 08/24/23 07:16 Primary Reason for Your Visit: labor Attending Provider: Elvira Guillory Primary Care Provider: Care Physician,Kassi Primary Discharge Orders/Prescriptions Prescriptions: New acetaminophen 500 mg Tablet 1,000 mg PO Q6H PRN PRN (Reason: Pain 1-10 Or Fever) Qty: 30 0RF ibuprofen 600 mg Tablet 600 mg PO Q6H PRN PRN (Reason: Pain Score 1-10) Qty: 30 0RF ferrous sulfate [FeroSul] 325 MG tablet 325 mg PO DAILY 60 Days Qty: 30 1RF Continued PNV cmb#95-ferrous fumarate-FA [] 28 mg iron- 800 mcg tablet 1 tab PO DAILY Discontinued aspirin 81 mg tablet,delayed release (DR/EC) 81 mg PO .Qday Patient Comments: Take 2 tablets by mouth once daily. Referrals / Follow Up: Care Physician,No Primary [Primary Care Provider] -
[2023-08-26 09:31] VITALS: BP 140/84; PULSE 138; RESP 18; TEMP 37.6; O2SAT 97
[2023-08-26 10:32] VITALS: BP 129/81; PULSE 129; RESP 18; TEMP 37.9; O2SAT 98
[2023-08-26 10:33] VITALS: TEMP 37.7
[2023-08-26 11:43] VITALS: TEMP 37.7
== END 2023-08-26 13:30 | disposition home or self-care (01) | DRG 560 ==
PROVIDERS: Admitting Provider Advanced Practice Midwife; Referring Provider Advanced Practice Midwife; Visit Provider Advanced Practice Midwife
DX: O26.893 Other specified pregnancy related conditions, third trimester (principal); Z37.0 Single live birth; R03.0 Elevated blood-pressure reading, without diagnosis of hypertension; O66.0 Obstructed labor due to shoulder dystocia; Z3A.39 39 weeks gestation of pregnancy; Z87.891 Personal history of nicotine dependence
CPT/HCPCS: 59025; 59050; 80307; 85025; 86780; 86850; 86900; 86901; 99221; J7120; G0378; J2405

== ENCOUNTER 2023-12-27 11:24 | Emergency (ER) | payer MEDICAID, SELFPAY ==
[2023-12-27 11:25] VITALS: BP 129/75; PULSE 120; RESP 19; TEMP 36.1; O2SAT 98
--- NOTE | 2023-12-27 12:41 | EDS_ITS ---
HPI HPI - URI History of Present Illness Chief Complaint: Cough Informant: patient Narrative Narrative: 23-year-old female presenting to the emergency room with chief complaint of sore throat cough. Patient states a couple days ago she had some ear pain. This morning woke up with cough some mild nasal congestion and sore throat. Mom notes that the 4-month-old also has developed cough and rhinorrhea. ROS ROS ED Constitutional Constitutional ED: Denies chills, fever(s) or weight loss Eyes Eyes: Denies change in vision or diplopia ENT ENT ED: Reports ear pain, rhinorrhea and sore throat Cardiovascular Cardiovascular: Denies chest pain, orthopnea, palpitations or racing heartbeat Respiratory/Chest Respiratory/Chest: Reports cough; Denies dyspnea or orthopnea Gastrointestinal Gastrointestinal: Denies abdominal pain, diarrhea, nausea or vomiting Genitourinary Genitourinary ED: Denies dysuria, hematuria or urinary frequency Musculoskeletal Musculoskeletal: Denies arthralgias or myalgias Integumentary Denies abscess or rash Neurologic Neurologic: Denies headache(s) or weakness Psychiatric Psychiatric: Denies anxiety, depression, suicidal ideation or suicidal thoughts Endocrine Endocrinology: Denies polydipsia, polyphagia or polyuria Allergic/Immunologic Allergic/Immunologic ED: Denies mouth swelling, tongue swelling or urticaria PFSH PFSH Medical History Chlamydia infection affecting Acid reflux Asthma Preeclampsia Home Medications ?Medication ?Instructions ?Recorded ?Last Taken ?Type vit no.95-ferrous 1 tab PO DAILY vitamin 06/13/23 Unknown History fumarate 28 mg-folic acid 800 mcg tablet () acetaminophen 500 mg tablet 1,000 mg (2 x 500 mg) PO Q6H PRN 08/26/23 Unknown Rx PRN Pain 1-10 Or Fever #30 tabs ferrous sulfate 325 mg (65 mg 325 mg PO DAILY 60 days #30 tabs 08/26/23 Unknown Rx iron) tablet (FeroSul) ibuprofen 600 mg tablet 600 mg PO Q6H PRN PRN Pain Score 08/26/23 Unknown Rx 1-10 #30 tabs Allergy/AdvReac Type Severity Reaction Status Date / Time No Known Allergies Allergy Verified 08/25/23 01:03 Social History Smoking Status: Former smoker EXAM Physical Exam Const Vital Signs: 12/27/23 11:25 12/27/23 11:27 12/27/23 14:16 Temperature 97.0 F L 97.9 F Temperature Source Temporal Pulse Rate 120 H 102 H Respiratory Rate 19 H 16 Respiratory Effort Normal Non-Labored Respiratory Depth Normal Respiratory Pattern Normal Blood Pressure 129/75 H 116/76 Blood Pressure Mean 93 89 Pulse Ox 98 97 Oxygen Delivery Method Room Air Room Air Positive well nourished and well developed General Appearance ED: well developed and NAD HEENT Reports normocephalic, head/scalp atraumatic and moist mucous membranes HEENT Narrative: Mild turbinate edema Eyes PERRL and EOMs intact bilaterally Neck no lymphadenopathy, supple and no JVD Resp normal respiratory effort and clear to auscultation bilaterally Cardio regular rate, regular rhythm and no murmurs GI normal to inspection, nondistended, normoactive bowel sounds and non-tender Palpation: soft Back/Spine no CVA tenderness and normal ROM Extremity normal to inspection General Extremety ED: Negative for edema General Extremity: Negative for edema Neuro oriented x3 and CN's II-XII intact bilaterally Sensorium / Orientation: alert Motor Exam: strength 5/5 throughout Psych mental status grossly normal Mood & Affect: Negative for depressed or tearful Skin no rashes or lesions noted and no wounds MDM MDM MDM Narrative Medical decision making narrative: Differential diagnosis includes but not limited to pharyngitis viral URI sinusitis bronchitis viral syndrome Patient clinically appears well. Physical exam only reveals some mild turbinate edema and clear rhinorrhea. RSV influenza and COVID swabs were negative. Patient will be discharged home with supportive care she notes understanding of plan return if worsening History & Record Review Discussion w/independent historian: Patient Lab Data Attestation: I reviewed the patient's lab results. Discharge Plan Triage Chief Complaint: Cough ED Provider: Wade Markham Dx/Rx/DC Orders Clinical Impression: URI (upper respiratory infection) Instructions: ED URI, Viral, No Abx (Adult) Prescriptions: No Action acetaminophen 500 mg Tablet 1,000 mg PO Q6H PRN PRN (Reason: Pain 1-10 Or Fever) Qty: 30 0RF ibuprofen 600 mg Tablet 600 mg PO Q6H PRN PRN (Reason: Pain Score 1-10) Qty: 30 0RF ferrous sulfate [FeroSul] 325 MG tablet 325 mg PO DAILY 60 Days Qty: 30 1RF PNV cmb#95-ferrous fumarate-FA [] 28 mg iron- 800 mcg tablet 1 tab PO DAILY Primary Care Provider: Care Physician,No Primary Referrals: Care Physician,No Primary [Primary Care Provider] - Print Language: Taiwanese Disposition Disposition: Home, Self Care Discharge Date/Time: 12/27/23 14:20
[2023-12-27 14:16] VITALS: BP 116/76; PULSE 102; RESP 16; TEMP 36.6; O2SAT 97
== END 2023-12-27 14:20 | disposition home or self-care (01) ==
PROVIDERS: Emergency Provider Emergency Medicine; Visit Provider Emergency Medicine
DX: J06.9 Acute upper respiratory infection, unspecified (principal); Z87.891 Personal history of nicotine dependence
CPT/HCPCS: 87631; 99282

== ENCOUNTER 2024-01-05 17:48 | Emergency (ER) | payer MEDICAID, SELFPAY ==
[2024-01-05 17:50] VITALS: BP 127/87; PULSE 118; RESP 18; TEMP 37.1; O2SAT 98; BMI 28.9
--- NOTE | 2024-01-05 19:37 | EX.ED.DYSGE1 ---
HPI History of Present Illness Chief Complaint: Sore Throat Informant: patient Narrative Narrative: 2-day history worsening sore throat. Her child to strep 3 days ago. No fevers or chills. Reports suprapubic pain since yesterday. No urinary symptoms. Last menstrual period a week ago. Normal bowel movements. No allergies. No history of gastric ulcers or kidney injury. [facility] Medical History Chlamydia infection affecting Acid reflux Asthma Preeclampsia Home Medications ?Medication ?Instructions ?Recorded ?Last Taken ?Type cephalexin 500 mg capsule 500 mg PO Q12 #20 CAPSULES 01/05/24 Unknown Rx escitalopram oxalate 10 mg tablet 10 mg PO DAILY 01/05/24 Unknown History Allergy/AdvReac Type Severity Reaction Status Date / Time No Known Allergies Allergy Verified 01/05/24 19:11 Social History Smoking Status: Current every day smoker tobacco type: e-cigarettes ROS ROS ED Constitutional Constitutional ED: Denies chills, fever(s) or sweats Eyes Eyes: Denies change in vision ENT ENT ED: Reports sore throat; Denies dysphagia Cardiovascular Cardiovascular: Denies chest pain, leg edema, palpitations or racing heartbeat Respiratory/Chest Respiratory/Chest: Denies cough, dyspnea or dyspnea on exertion Gastrointestinal Gastrointestinal: Reports abdominal pain; Denies diarrhea, nausea or vomiting Genitourinary Genitourinary ED: Denies dysuria, hematuria or urinary frequency Musculoskeletal Musculoskeletal: Denies back pain, extremity pain or neck pain Integumentary Denies rash or wounds Neurologic Neurologic: Denies headache(s), paresthesias or weakness EXAM Physical Exam Const Vital Signs: 01/05/24 17:50 01/05/24 20:56 Temperature 98.8 F 98.2 F Temperature Source Temporal Pulse Rate 118 H 96 Respiratory Rate 18 20 H Blood Pressure 127/87 H 126/76 H Blood Pressure Mean 100 92 Pulse Ox 98 97 Oxygen Delivery Method Room Air Positive well nourished and well developed General Appearance ED: well developed and NAD HEENT Reports moist mucous membranes HEENT Narrative: 1+ symmetric tonsils bilaterally with erythema. There is exudate on the right tonsil. Uvula midline. No trismus. normocephalic and atraumatic Eyes EOMs intact bilaterally and conjunctivae normal General Eye ED: Yes normal appearance of both eyes Neck no lymphadenopathy and supple General: Negative for tenderness Chest Wall Chest: Negative for tenderness Resp normal respiratory effort and normal air movement Effort and Inspection: symmetric chest movement; Negative for respiratory distress Cardio regular rate, regular rhythm and no murmurs Peripheral Pulses: pulses 2+ throughout GI normal to inspection, nondistended, normoactive bowel sounds GI Narrative: Mild tenderness suprapubic. Negative Tarango's or McBurney's tenderness. Palpation: Negative for guarding or rebound tenderness present Back/Spine no CVA tenderness and no thoracic nor lumbar tenderness Extremity normal to inspection General Extremety ED: Negative for edema or tenderness General Extremity: Negative for edema Neuro oriented x3 and no sensory deficits noted Sensorium / Orientation: awake and alert Skin no rashes or lesions noted and no wounds MDM MDM MDM Narrative Medical decision making narrative: Interventions / MDM: Differential diagnosis: UTI, strep pharyngitis Diagnosis considered but do not suspect: No peritonsillar abscess signs My EKG interpretation: N/A Imaging independently reviewed and interpreted by myself: N/A External documents reviewed: N/A Test considered but not ordered:N/A ED course: Positive strep exposure with erythema and pus on the right tonsil. Discussed likely strep with her exposure. Will plan for treatment. However she has suprapubic tenderness. Will check a urine and hCG. Dexamethasone Motrin given. Will plan on antibiotic after urine studies. hCG negative. Urine with infection. She is started on Keflex twice a day for 10 days covers both UTI and strep pharyngitis. She will continue Lex Motrin. Outpatient follow-up. All questions were answered. Re-evaluation: stable Disposition discussed with patient/family/significant other: Case discussed with consulting clinician: N/A This note was generated with [employer] dictation software. It may contain incorrect words, spelling, and punctuation that were not noted in checking the note before signing. Lab Data Attestation: I reviewed the patient's lab results. Labs: Laboratory Results - last 24 hr 01/05/24 19:40 Urine Color Yellow Urine Clarity Sl. Cloudy Urine pH 8.0 Ur Specific [place] 1.010 Urine Protein 15 H Urine Glucose (UA) Normal Urine Ketones Negative Urine Occult Blood 10 H Urine Nitrite Negative Urine Bilirubin Negative Urine Urobilinogen Normal Ur Leukocyte Esterase 100 H Urine RBC 0 SEEN Urine WBC 25-50 SEEN Ur Squamous Epith Cells 0-5 SEEN Urine Bacteria 1+ Urine Mucus 1+ Urine Test Negative Discharge Plan Triage Chief Complaint: Sore Throat Other Complaint: Abd Pain ED Provider: Trevin Sanches Dx/Rx/DC Orders Clinical Impression: Pharyngitis, UTI (urinary tract infection) Instructions: Urinary Tract Infections in Women, ED Pharyngitis, Strep (Confirmed) Prescriptions: New cephalexin 500 mg capsule 500 mg PO Q12 Qty: 20 0RF No Action escitalopram oxalate 10 mg tablet 10 mg PO DAILY Primary Care Provider: Care Physician,No Primary Referrals: Nessa Herndon [Non-Staff] - 1-2 Weeks Care Physician,No Primary [Primary Care Provider] - Activity Restrictions/Additional Instructions: Presumed strep with signs of infection with your child having strep. Also have urinary tract infection. Keflex would cover for both infection. Take and finish the antibiotic. Status post dexamethasone. Continue Tylenol Motrin as needed. Print Language: Ecuadorean Disposition Disposition: Home, Self Care Discharge Date/Time: 01/05/24 20:58
[2024-01-05] MEDS: dexAMETHasone 4 MG Tablet 12 MG PO (19:42)
[2024-01-05] MEDS: Ibuprofen 600 MG Tablet PO (19:43)
[2024-01-05 19:57] LABS: Color, Urine Yellow (Yellow); Glucose, Dipstick Normal (Normal); Ketone-Dipstick Negative (Negative); Leukocyte Esterase-Dipstick 100 /ul (Negative); Nitrite-Dipstick Negative (Negative); Occult Blood-Urine 10 /ul (Negative); Protein-Dipstick 15 mg/dl (Negative); Red Blood Cells-Urine 0 SEEN /hpf (0-5); Urine Bilirubin Dipstick Negative (Negative); Urine Clarity Sl. Cloudy (Clear); Urine Urobilinogen Normal (Normal)
[2024-01-05 20:23] LABS: Bacteria 1+ /hpf (None Seen); Internal QC Validated? YES +Cl - CLEAR BKGD; Mucous, Urine 1+ /hpf (<or=2+); Pregnancy, Urine Negative Negative; Squamous Epithelial Cells - UA 0-5 SEEN /hpf (5-10); White Blood Cells 25-50 SEEN /hpf (0-5)
[2024-01-05 20:56] VITALS: BP 126/76; PULSE 96; RESP 20; TEMP 36.8; O2SAT 97
[2024-01-05] MEDS: Cephalexin 250 MG Capsule 500 MG PO (20:57)
== END 2024-01-05 20:58 | disposition home or self-care (01) ==
PROVIDERS: Emergency Provider Emergency Medicine; Visit Provider Emergency Medicine
DX: J02.9 Acute pharyngitis, unspecified (principal); N39.0 Urinary tract infection, site not specified; F17.290 Nicotine dependence, other tobacco product, uncomplicated
CPT/HCPCS: 81001; 81025; 99283

== ENCOUNTER 2024-04-30 18:45 | Emergency (ER) | payer MEDICAID, SELFPAY ==
[2024-04-30 18:45] VITALS: BP 128/83; PULSE 107; RESP 16; TEMP 36.2; O2SAT 98; BMI 29.6
--- NOTE | 2024-04-30 18:59 | EX.ED.DYSGE1 ---
HPI History of Present Illness Chief Complaint: Nausea/Vomiting Narrative Narrative: 44-year-old female, G5, P4 at approximately 11 weeks gestation presents with nausea and vomiting that started at 6 AM this morning. Yesterday, she was feeling well. She states she feels flushed but is not running a fever. She has vomited multiple times at home without any blood in her emesis. Of note, she has had hyperemesis throughout her previous pregnancies but this is the first time that it is happening with this particular . She denies any pelvic pain or vaginal pain. No cramping, no vaginal bleeding. No exacerbating or alleviating factors. She had leftover Zofran at home which she took without relief. She denies any lightheadedness, no chest pain or shortness of breath. No headache. [facility] Medical History Chlamydia infection affecting Acid reflux Asthma Preeclampsia Home Medications ?Medication ?Instructions ?Recorded ?Last Taken ?Type metoclopramide HCl 5 mg tablet 5 mg PO Q6H #20 tabs 04/30/24 Unknown Rx (Reglan) Allergy/AdvReac Type Severity Reaction Status Date / Time No Known Allergies Allergy Verified 04/30/24 18:48 Social History Smoking Status: Current every day smoker tobacco type: e-cigarettes ROS ROS ED ROS Narrative Review of systems, focused, positive for nausea and vomiting. No hematemesis. No fevers or chills. No pelvic pain, no vaginal pain, no vaginal bleeding. No abdominal pain. No lightheadedness. EXAM Physical Exam Narrative Exam Narrative: Afebrile. Vital signs noted. Nontoxic-appearing. Cardiovascular examination reveals a mild tachycardia at 107 bpm. Lungs are clear to auscultation bilaterally. Abdomen soft nontender with normoactive bowel sounds. Neurological examination nonfocal and nonlateralizing. Const Vital Signs: 04/30/24 18:45 04/30/24 20:45 04/30/24 21:28 Temperature 97.2 F L 98.7 F Temperature Source Temporal Oral Pulse Rate 107 H 86 Respiratory Rate 16 18 Blood Pressure 128/83 H 110/85 H Blood Pressure Mean 98 93 Pulse Ox 98 100 Oxygen Delivery Method Room Air Room Air MDM MDM MDM Narrative Medical decision making narrative: Differential diagnosis includes but not limited to hyperemesis gravidarum versus gastritis versus nausea and vomiting with . 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 Patient will be bolused normal saline. I will check a CBC and CMP to look for dehydration as well as a UA to look for ketones. I doubt that she has a urinary tract infection that is the cause of this. She was administered ondansetron intravenously. She has not had any vomiting here in the emergency department. I reviewed her laboratory work and she has slight elevation of her white count 11.6, hemoglobin 13.1, sodium normal at 136 with potassium 3.6, BUN of 7 and creatinine 0.60. Glucose appropriately elevated 94 with a normal anion gap of 8. LFTs are grossly unremarkable. While her urinalysis was obtained and there is no evidence of ketones, there are 5-10 WBCs with 2+ bacteria. I discussed the patient with her nurse practitioner/spinner continuous Ramin Guillory who agrees with culturing her urine. She had been on Zofran because that had worked with her previous pregnancies, but in discussion with the spinner continuous/nurse practitioner she agrees with trial dose of Reglan. This was offered to the patient here but she declined. I wrote her prescription of 5 mg tablets to take every 6 hours as needed for nausea and vomiting. She will start a clear liquid diet and advance as tolerated tomorrow and follow-up with her COMMUNICATIONS BILLING ANALYST on Thursday, 2 days from now. I feel she can be discharged to follow-up. Return instructions reviewed. Disposition is discharged home in stable condition. History & Record Review Discussion w/independent historian: Patient Lab Data Attestation: I reviewed the patient's lab results. Labs: Laboratory Results - last 24 hr 04/30/24 04/30/24 19:00 19:13 WBC 11.6 H RBC 4.69 Hgb 13.1 Hct 38.6 MCV 82.3 MCH 27.9 MCHC 33.9 RDW Std Deviation 42.7 RDW Coeff of Gregory 14.5 Plt Count 251 MPV 11.6 Immature Gran % (Auto) 0.400 Neut % (Auto) 72.0 H Lymph % (Auto) 16.3 L [place] % (Auto) 6.1 Eos % (Auto) 4.8 Baso % (Auto) 0.4 Absolute Neuts (auto) 8.3 H Absolute Lymphs (auto) 1.89 Nucleated RBC % 0 Sodium 136 Potassium 3.6 Chloride 107 Carbon Dioxide 22.0 Anion Gap 8 BUN 7 Creatinine 0.60 Estim Creat Clear Calc 153.08 Est GFR (MDRD) Af Amer 160 Est GFR (MDRD) Non-Af 132 BUN/Creatinine Ratio 11.7 Glucose 94 Calcium 9.5 Total Bilirubin 0.20 AST 16 ALT 24 Alkaline Phosphatase 84 Total Protein 8.5 H Albumin 3.7 Globulin 4.8 H Albumin/Globulin Ratio 0.8 L Urine Color Yellow Urine Clarity Sl. Cloudy Urine pH 6.5 Ur Specific [place] 1.020 Urine Protein 30 H Urine Glucose (UA) Normal Urine Ketones Negative Urine Occult Blood 25 H Urine Nitrite Negative Urine Bilirubin Negative Urine Urobilinogen 1 H Ur Leukocyte Esterase 25 H Urine RBC 0-5 SEEN Urine WBC 5-10 SEEN Ur Squamous Epith Cells 0-5 SEEN Urine Bacteria 2+ Urine Mucus 0 SEEN Discharge Plan Triage Chief Complaint: Nausea/Vomiting ED Provider: Maxi Pete Dx/Rx/DC Orders Clinical Impression: Nausea and vomiting during , 11 weeks gestation of Instructions: 1st Trimester, ED Vomiting (Adult) Prescriptions: New metoclopramide HCl [Reglan] 5 mg tablet 5 mg PO Q6H Qty: 20 0RF Primary Care Provider: Care Physician,No Primary Referrals: Elvira Guillory CNM [Med Staff - Adv Practice Prof] - 2 Days Care Physician,No Primary [Primary Care Provider] - Activity Restrictions/Additional Instructions: Return with inability to tolerate oral fluids, new or worsening symptoms including vaginal bleeding or pelvic pain. Follow-up with your COMMUNICATIONS BILLING ANALYST on Thursday. 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 Start a clear liquid diet and advance as tolerated tomorrow. Print Language: Czech Disposition Disposition: Home, Self Care
[2024-04-30] MEDS: 0.9% Normal Saline (1000mL) 1,000 ML 999 ML IV (19:08)
[2024-04-30] MEDS: Ondansetron 4 MG/2 ML Vial IV (19:08)
[2024-04-30 19:12] LABS: Absolute Lymphocyte Count 1.89 X10^3/uL (0.83-4.51); Absolute Neutrophil Count 8.3 X10^3/uL (2.0-7.7); Basophil# 0.05 X10^3/uL; Basophil% 0.4 % (0-1); Eosinophil# 0.55 X10^3/uL; Eosinophils% 4.8 % (0-5); Hematocrit 38.6 % (37-47); Hemoglobin 13.1 g/dL (12.0-15.0); Lymphocyte # 1.89 X10^3/ul (0.83-4.51); Lymphocyte % 16.3 % (19-41); Mean Corp Hgb Conc 33.9 g/dL (32-36); Mean Corpuscular Hgb 27.9 pg (27.0-32.0); Mean Corpuscular Volume 82.3 fL (81-99); Mean Platelet Vol. 11.6 fl (6.2-12.0); Monocyte% 6.1 % (0-10); NRBC Flagged by Analyzer 0 % (0-5); Neutrophil # 8.32 X10^3/uL (2.7-7.7); Platelet Count 251 K/mm3 (150-450); RBC Distribution Width CV 14.5 % (11.6-14.6); RBC Distribution Width SD 42.7 fl (35.1-43.9); Red Blood Count 4.69 M/mm3 (4.2-5.4); White Blood Count 11.6 K/mm3 (4.4-11.0)
[2024-04-30 19:17] LABS: Mucous, Urine 0 SEEN /hpf (<or=2+)
[2024-04-30 19:35] LABS: Color, Urine Yellow (Yellow); Glucose, Dipstick Normal (Normal); Ketone-Dipstick Negative (Negative); Leukocyte Esterase-Dipstick 25 /ul (Negative); Nitrite-Dipstick Negative (Negative); Occult Blood-Urine 25 /ul (Negative); Protein-Dipstick 30 mg/dl (Negative); Urine Bilirubin Dipstick Negative (Negative); Urine Clarity Sl. Cloudy (Clear); Urine Urobilinogen 1 mg/dl (Normal); Urine pH 6.5 (5.0 - 8.0)
[2024-04-30 19:37] LABS: ALB/GLOB Ratio 0.8 RATIO (0.9-2.4); AST(SGOT) 16 U/L (15-37); Alanine Aminotransfer ALT/SGPT 24 U/L (13-56); Albumin, Serum 3.7 g/dL (3.2-5.0); Alkaline Phosphatase 84 U/L (45-117); Anion Gap 8 (5-15); BUN 7 mg/dL (7-18); BUN/Creat Ratio 11.7 RATIO (10-20); Calcium,Total 9.5 mg/dL (8.5-10.1); Chloride 107 mmol/L (98-107); EST Glomerular Filtration Rate 132 mL/min (>60); Est Glom Filt Rate - Afr Amer 160 mL/min (>60); Estimated Creatinine Clearance 153.08 ml/min; Globulin 4.8 g/dL (2.2-4.2); Glucose 94 mg/dL (74-106); Potassium 3.6 mmol/L (3.5-5.1); Protein, Total 8.5 g/dL (6.4-8.2); Sodium Level 136 mmol/L (136-145)
[2024-04-30 20:14] LABS: Bacteria 2+ /hpf (None Seen); White Blood Cells 5-10 SEEN /hpf (0-5)
[2024-04-30 20:20] LABS: Red Blood Cells-Urine 0-5 SEEN /hpf (0-5); Squamous Epithelial Cells - UA 0-5 SEEN /hpf (5-10)
[2024-04-30 20:45] VITALS: BP 110/85; PULSE 86; RESP 18; O2SAT 100
[2024-04-30 21:28] VITALS: TEMP 37.1
[2024-04-30 22:13] VITALS: BP 114/68; PULSE 88; RESP 16; TEMP 37.1; O2SAT 98
== END 2024-04-30 22:18 | disposition home or self-care (01) ==
PROVIDERS: Emergency Provider Emergency Medicine; Referring Provider Emergency Medicine; Visit Provider Emergency Medicine
DX: O21.9 Vomiting of pregnancy, unspecified (principal); Z3A.11 11 weeks gestation of pregnancy; F17.290 Nicotine dependence, other tobacco product, uncomplicated
CPT/HCPCS: 80053; 81001; 85025; 87086; 87088; 96361; 96374; 99283; A4216; J2405

== ENCOUNTER 2024-06-09 00:32 | Emergency (ER) | payer MEDICAID, SELFPAY ==
[2024-06-09 00:34] VITALS: BP 165/85; PULSE 100; RESP 18; TEMP 36.8; O2SAT 96; BMI 29.7
--- NOTE | 2024-06-09 00:54 | ED.VIS.FEGU ---
HPI HPI - Female History of Present Illness Chief Complaint: Vag Bld, Preg Informant: patient Narrative Narrative: Patient is a with 2 spontaneous abortions who is roughly 16 weeks . She states that this evening she took a bath and had created a bubble bath with Dove soap. She states after this she felt vaginal burning and pressure in the lower abdomen. She states she urinated and only produced a small amount. However this caused increased burning and when she wiped there was a small amount of pinkish-red blood. She states that the presence of the blood concern to her and therefore she called EMS to be brought in for evaluation. Patient states that other than the small amount of blood upon wiping there has not been persistent vaginal bleeding. Patient also denies any vaginal discharge or concern for STD. [facility] Medical History Chlamydia infection affecting Acid reflux Asthma Preeclampsia Home Medications ?Medication ?Instructions ?Recorded ?Last Taken ?Type metoclopramide HCl 5 mg tablet 5 mg PO Q6H #20 tabs 04/30/24 Unknown Rx (Reglan) amoxicillin 500 mg capsule 500 mg PO TID 7 days #21 caps 06/09/24 Unknown Rx aspirin 81 mg capsule 81 mg PO DAILY 06/09/24 Unknown History phenazopyridine 200 mg tablet 200 mg PO TID 2 days #6 tabs 06/09/24 Unknown Rx (Pyridium) Allergy/AdvReac Type Severity Reaction Status Date / Time No Known Allergies Allergy Verified 06/09/24 00:33 Family History no significant family his Social History Smoking Status: Former smoker ROS ROS ED Constitutional Constitutional ED: Denies chills or fever(s) Eyes Eyes: Denies blurry vision or change in vision ENT ENT ED: Denies sore throat Cardiovascular Cardiovascular: Denies chest pain Respiratory/Chest Respiratory/Chest: Denies cough or dyspnea Gastrointestinal Gastrointestinal: Denies abdominal pain, diarrhea, nausea or vomiting Genitourinary Genitourinary ED: Reports dysuria and other Details: Positive vaginal bleeding Musculoskeletal Musculoskeletal: Reports other Details: Negative back pain Integumentary Denies rash Neurologic Neurologic: Denies headache(s) Hematologic/Lymphatic Hematologic/Lymphatic: Denies easy bleeding or easy bruising EXAM Physical Exam Const Vital Signs: 06/09/24 00:34 06/09/24 01:00 Temperature 98.2 F Temperature Source Oral Pulse Rate 100 98 Respiratory Rate 18 16 Blood Pressure 165/85 H 127/68 H Blood Pressure Mean 111 87 Pulse Ox 96 98 Oxygen Delivery Method Room Air Room Air Positive well nourished and well developed General Appearance ED: well developed; Negative for pallor HEENT HEENT Narrative: Normocephalic atraumatic Eyes PERRL and EOMs intact bilaterally General Eye ED: Negative for scleral icterus Neck supple Neck Narrative: No nuchal rigidity or meningeal signs Resp normal respiratory effort and clear to auscultation bilaterally Cardio regular rate and regular rhythm Rate: other Other Details: Radial and carotid pulses are equal and symmetric GI non-distended GI Narrative: Abdomen is gravid with fundus consistent with reported gestational age. There is mild pain with palpation in the suprapubic region. No voluntary guarding or rigidity. Auscultation: normoactive bowel sounds Palpation: soft Narrative: Patient deferred Back/Spine no CVA tenderness Extremity full ROM Extremity Narrative: Trace pitting edema consistent with status Negative Homans' sign bilaterally Neuro oriented x3, CN's II-XII intact bilaterally and no sensory deficits noted Sensorium / Orientation: alert Motor Exam: strength 5/5 throughout Psych Mood & Affect: anxious Skin no rashes or lesions noted General Skin Exam: Negative for jaundice or pallor MDM MDM MDM Narrative Medical decision making narrative: Patient arrived to the ER no acute distress. She reported having vaginal burning/dysuria after taking a bubble bath. She states there was mild blood with wiping as well. With concern this could be threatened /spontaneous miscarriage versus UTI versus allergic urethritis I did elect to place an ultrasound on the patient in the ER and obtain a urine sample. Ultrasound evaluation in ER shows the fetus to be within the uterus with a heartbeat of 150 bpm and spontaneous motion without signs of placental abruption. The patient's urine sample does show changes consistent with UTI and therefore should be started on Pyridium and amoxicillin in the urine to be sent for culture. As she does not have back pain or fever my concern for pyelonephritis is low and I do not feel there is need for imaging or laboratory testing. The patient initially arrived hypertensive but I felt this was related to pain and anxiety. Without any type of treatment her blood pressure improved indicating this is not a preeclamptic state. Therefore at this time as her history and exam and urine sample all confirm changes consistent with UTI but she does not have urosepsis or concern for pyelonephritis she is otherwise safe for discharge History & Record Review Discussion w/independent historian: EMS personnel and Patient Lab Data Attestation: I reviewed the patient's lab results. Labs: Laboratory Results - last 24 hr 06/09/24 00:56 Urine Color Yellow Urine Clarity Cloudy Urine pH 6.5 Ur Specific [place] 1.015 Urine Protein 500 H Urine Glucose (UA) Normal Urine Ketones Negative Urine Occult Blood 250 H Urine Nitrite Positive H Urine Bilirubin Negative Urine Urobilinogen Normal Ur Leukocyte Esterase 500 H Urine RBC 10-25 SEEN Urine WBC 25-50 SEEN Ur Squamous Epith Cells 0-5 SEEN Urine Bacteria 3+ Urine Mucus 0 SEEN Discharge Plan Triage Chief Complaint: Vag Bld, Preg ED Provider: Kenton Smith Dx/Rx/DC Orders Clinical Impression: UTI (urinary tract infection), History of pre-eclampsia, Intrauterine Instructions: Urinary Tract Infections in Women Prescriptions: New amoxicillin 500 mg capsule 500 mg PO TID 7 Days Qty: 21 0RF phenazopyridine [Pyridium] 200 mg tablet 200 mg PO TID 2 Days Qty: 6 0RF No Action metoclopramide HCl [Reglan] 5 mg tablet 5 mg PO Q6H Qty: 20 0RF aspirin 81 mg capsule 81 mg PO DAILY Primary Care Provider: Care Physician,No Primary Referrals: Care Physician,No Primary [Primary Care Provider] - Activity Restrictions/Additional Instructions: Please follow-up with your REFUSE COLLECTOR for repeat evaluation. Your urine sample today showed changes consistent with infection. Take the antibiotic as directed to help resolve this. They will typically take 2 to 3 days for symptom improvement. The Pyridium you were prescribed will turn your urine a discolored orange. This will resolve once you stop the medication. Return to the ER should you have any further concerns Print Language: Luxembourgish Disposition Disposition: Home, Self Care
[2024-06-09 01:00] VITALS: BP 127/68; PULSE 98; RESP 16; O2SAT 98
[2024-06-09 01:15] LABS: Mucous, Urine 0 SEEN /hpf (<or=2+)
[2024-06-09 01:16] LABS: Color, Urine Yellow (Yellow); Glucose, Dipstick Normal (Normal); Ketone-Dipstick Negative (Negative); Leukocyte Esterase-Dipstick 500 /ul (Negative); Nitrite-Dipstick Positive (Negative); Occult Blood-Urine 250 /ul (Negative); Protein-Dipstick 500 mg/dl (Negative); Specific Gravity, Urine 1.015 (1.002-1.030); Urine Bilirubin Dipstick Negative (Negative); Urine Clarity Cloudy (Clear); Urine Urobilinogen Normal (Normal); Urine pH 6.5 (5.0 - 8.0)
[2024-06-09 01:40] LABS: Bacteria 3+ /hpf (None Seen); Red Blood Cells-Urine 10-25 SEEN /hpf (0-5); Squamous Epithelial Cells - UA 0-5 SEEN /hpf (5-10); White Blood Cells 25-50 SEEN /hpf (0-5)
[2024-06-09 01:56] VITALS: BP 116/61; PULSE 75; RESP 16; TEMP 36.6; O2SAT 99
[2024-06-09] MEDS: Phenazopyridine 95 MG Tablet 190 MG PO (01:56)
[2024-06-09] MEDS: AMOXICILLIN 500 MG CAPSULE PO (01:56)
--- NOTE | 2024-06-11 14:08 | ED.RN ---
Rx for macrobid called into [facility] for macrobid 100mg BID x 7 days. Pt aware.
== END 2024-06-09 01:57 | disposition home or self-care (01) ==
PROVIDERS: Emergency Provider Emergency Medicine; Visit Provider Emergency Medicine
DX: O20.9 Hemorrhage in early pregnancy, unspecified (principal); O23.42 Unspecified infection of urinary tract in pregnancy, second trimester; Z87.891 Personal history of nicotine dependence; Z87.59 Personal history of other complications of pregnancy, childbirth and the puerperium; Z3A.16 16 weeks gestation of pregnancy
CPT/HCPCS: 81001; 87077; 87086; 87088; 87186; 99285

== ENCOUNTER 2024-11-09 02:41 | Inpatient (IN) | payer MEDICAID, SELFPAY ==
[2024-11-08 23:15] VITALS: BMI 32.1
[2024-11-08 23:22] VITALS: BP 130/96; PULSE 90
[2024-11-08 23:23] VITALS: PULSE 92; RESP 16; TEMP 37.3; O2SAT 98
[2024-11-08 23:41] VITALS: BP 144/93; PULSE 96
[2024-11-08 23:59] VITALS: BP 140/92; PULSE 93
[2024-11-09] VITALS (82 sets, daily range): BP systolic 110–153; BP diastolic 55–92; PULSE 79–133; RESP 16–18; TEMP 36.4–37.3; O2SAT 92–100
[2024-11-09 00:25] LABS: Hematocrit 31.7 % (37-47); Hemoglobin 10.7 g/dL (12.0-15.0); Mean Corp Hgb Conc 33.8 g/dL (32-36); Mean Corpuscular Volume 81.9 fL (81-99); Mean Platelet Vol. 12.3 fl (6.2-12.0); Platelet Count 202 K/mm3 (150-450); RBC Distribution Width CV 14.1 % (11.6-14.6); RBC Distribution Width SD 41.4 fl (35.1-43.9); Red Blood Count 3.87 M/mm3 (4.2-5.4); White Blood Count 7.8 K/mm3 (4.4-11.0)
[2024-11-09 00:34] LABS: Creatinine, Urine (random) 120.00 mg/dL (28.00-217.00); Protein, Urine (Random) 21.3 mg/dL (0.0-12.0); Protein:Creat Ratio 178 mg/g CRE (0-200)
[2024-11-09 00:55] LABS: AST(SGOT) 21 U/L (<=31); Alanine Aminotransfer ALT/SGPT 11 U/L (<=34); Estimated Creatinine Clearance 173.92 ml/min (50-250); Uric Acid 4.0 mg/dL (2.6-6.0)
--- NOTE | 2024-11-09 02:34 | HP.PCM.OB_ITS ---
HPI - General General Date of Admission: 11/09/24 Date of Service: 11/09/24 Chief Complaint: elevated BP HPI Narrative DARREL PHILLIPS, is a 24 F who presents from the emergency room where she arrived because she had an episode of emesis today with some bright red blood in it. She denies any continued nausea. She has had remittent nausea and vomiting throughout the but was concerned because she had blood in it. She denies any diarrhea or constipation. She has had some irregular contractions but denies any gross vaginal bleeding or leaking of fluid. She denies any headache or visual changes. Maternal Data Information Final KIARA: 11/23/24 Gestational age: 38 0/7 [facility] FOR[facility]LY [facility], 1928–1983 Medical History Chlamydia infection affecting Acid reflux Asthma Preeclampsia Home Medications ?Medication ?Instructions ?Recorded ?Last Taken ?Type metoclopramide HCl 5 mg tablet 5 mg PO Q6H #20 tabs Unknown Rx (Reglan) amoxicillin 500 mg capsule 500 mg PO TID 7 days #21 ca ps 06/09/24 Unknown Rx aspirin 81 mg capsule 81 mg PO DAILY 06/09/2404/02 History phenazopyridine 200 mg tablet 200 mg PO TID 2 days #6 tabs 06/09/24 11/07/24 Rx (Pyridium) ferrous sulfate 325 mg (65 mg 325 mg PO DAILY 11/08/24 11/07/24 History iron) tablet (FeroSul) vits 114-iron asparto gly tab PO 11/08/2404/02 History 20 mg iron-folate no.1 1 mg tablet Allergy/AdvReac Type Severity Reaction Status Date / Time No Known Allergies Allergy Verified 11/08/24 23:29 Social History Smoking Status: Former smoker History Elective abortions Hx Para 3 Spontaneous abortions Hx # Term Pregnancies Ectopic pregnancies Hx # Pregnancies Multiple births # of living children ROS Constitutional Constitutional: Denies fatigue, fever(s) or malaise Eyes Eyes: Denies change in vision ENT HEENT: Denies dizziness or headache(s) Cardiovascular Cardiovascular: Denies chest pain, dyspnea or lightheadedness Respiratory/Chest Respiratory/Chest: Denies cough or dyspnea Gastrointestinal Gastrointestinal: Denies change in bowel habits Genitourinary Genitourinary: Denies burning urination or genital lesions Integumentary Integumentary: Denies rash Neurologic Neurologic: Denies confusion, dizziness, headache(s), numbness or weakness Vital Signs Vital Signs Vital Signs: 11/08/24 23:22 11/08/24 23:22 11/08/24 23:23 Temperature Temperature Source Pulse Rate 90 92 Respiratory Rate Blood Pressure 130/96 H BP Systolic 130 BP Diastolic 96 Pulse Ox 11/08/24 23:23 11/08/24 23:23 11/08/24 23:23 Temperature Temperature Source Temporal Pulse Rate Respiratory Rate 16 Blood Pressure BP Systolic BP Diastolic Pulse Ox 98 11/08/24 23:23 11/08/24 23:41 11/08/24 23:41 Temperature 99.2 F H Temperature Source Pulse Rate 96 Respiratory Rate Blood Pressure 144/93 H BP Systolic 144 BP Diastolic 93 Pulse Ox 11/08/24 23:59 11/08/24 23:59 11/09/24 00:14 Temperature Temperature Source Pulse Rate 93 Respiratory Rate Blood Pressure 140/92 H 147/91 H BP Systolic 140 147 BP Diastolic 92 91 Pulse Ox 11/09/24 00:14 11/09/24 00:31 11/09/24 00:31 Temperature Temperature Source Pulse Rate 89 94 Respiratory Rate Blood Pressure 141/91 H BP Systolic 141 BP Diastolic 91 Pulse Ox 11/09/24 00:45 11/09/24 00:45 11/09/24 01:01 Temperature Temperature Source Pulse Rate 116 H Respiratory Rate Blood Pressure 141/92 H 137/92 H BP Systolic 141 137 BP Diastolic 92 92 Pulse Ox 11/09/24 01:01 11/09/24 01:16 11/09/24 01:16 Temperature Temperature Source Pulse Rate 102 H 110 H Respiratory Rate Blood Pressure 138/88 H BP Systolic 138 BP Diastolic 88 Pulse Ox 11/09/24 01:28 11/09/24 01:28 11/09/24 01:28 Temperature 97.6 F L Temperature Source Temporal Pulse Rate Respiratory Rate 16 Blood Pressure BP Systolic BP Diastolic Pulse Ox 11/09/24 01:31 11/09/24 01:31 11/09/24 01:46 Temperature Temperature Source Pulse Rate 93 Respiratory Rate Blood Pressure 140/83 H 133/83 H BP Systolic 140 133 BP Diastolic 83 83 Pulse Ox 11/09/24 01:46 11/09/24 02:00 11/09/24 02:00 Temperature Temperature Source Pulse Rate 96 108 H Respiratory Rate Blood Pressure 132/83 H BP Systolic 132 BP Diastolic 83 Pulse Ox 11/09/24 02:16 11/09/24 02:16 11/09/24 02:30 Temperature Temperature Source Pulse Rate 101 H Respiratory Rate Blood Pressure 139/87 H 130/83 H BP Systolic 139 130 BP Diastolic 87 83 Pulse Ox 11/09/24 02:30 Temperature Temperature Source Pulse Rate 110 H Respiratory Rate Blood Pressure BP Systolic BP Diastolic Pulse Ox Weight Weight: 87.634 kg Body Mass Index (BMI) 32.1 Physical Exam Narrative Lower extremeties 2+ DTRs, no clonus Const alert and no apparent distress General Appearance: cooperative HEENT normocephalic Resp normal respiratory effort Cardio regular rate GI soft to palpation GI Narrative: gravid, nontender, appropriate for gestational age Extremity no calf tenderness General Extremity: edema Skin no wounds Rashes: No rashes noted Psych activity/motor behavior normal Labs Labs Labs: Blood Type A POSITIVE Antibody Screen NEGATIVE Hct 31.7 % (37-47) L Hgb 10.7 g/dL (12.0-15.0) L Obstetrics Ultrasound Syphilis Total Ab Non-reactive Rhogam given: No Assessment & Plan (1) 38 weeks gestation of : (2) Gestational hypertension: COMMENT: no evidence of preeclampsia w/ severe features, prot:creat ratio normal. Monitor closely. D/w her r/b/a to induction of labor and she desires to proceed. (3) Supervision of high risk in third trimester: (4) Encounter for induction of labor: COMMENT: pit/arom prn (5) History of shoulder dystocia in prior , currently : COMMENT: D/w her r/b/a to induction> EFW of this infant < 4000 gm clinically and based on US. Has had larger babies w/o shoulder dystocia. D/w her r/b/a to c/s, desires induction of labor and d/w her cannot predict shoulder dystocia severity but clinically reasonable for vaginal delivery based on her history and EFW of fetus. (6) GBS (group B Streptococcus carrier), +RV culture, currently : COMMENT: PCN prophylaxis (7) History of chlamydia: COMMENT: + early in , f/u neg. Send urine GC/CT upon admission
--- OUTSIDE RECORDS SUMMARY | 2024-11-09 03:00 | XMS RPT_ITS | CCD ---
Demographics Address [facility] [address] [place] [address] Mobile Phone Home Phone Preferred Language en Marital Status Single Moravian Affiliation Unknown Race White Ethnic Group Not or Lati no Author Organization [facility] Care Team Providers Care Music Autographer Name Role Phone ROSEMARIE IRIZARRY Referring Unavailable IMCA Referring Unavailable IMCA Referring Unavailable Unavailable Primary Care Provider Unavailabl e Unavailable Primary Care Provider Unavailabl e Unavailable Primary Care Provider Unavailabl e Unavailable Primary Care Provider Unavailabl e Care Physician, No Primary Primary Care Provider Unavailable Maxi Pete MD Attending Provider Maxi Pete MD Referring Provider Maxi Pete MD Emergency Provider Dr. Kenton Smith DO Emergency Provider [phone] Trevin Sanches Attending Unavailable Care Physician, No Primary Primary Care Unava ilable Maxi Pete Attending Unavailable Maxi Pete Referring Unavailable Care Physician, No Primary Primary Care Unava ilable Kenton Smith Attending Unavailable Care Physician, No Primary Primary Care Unava ilable Kahlil, Elvira Admitting Unavailable Kahlil Elvira Attending Unavailable Guillory, Elvira Referring Unavailable Care Physician, No Primary Primary Care Unava ilable Wade Markham Attending Unavailable Care Physician, No Primary Primary Care Unava ilable VIVIANA ASHTON Attending Unavailable GABRIELLA HOFFMAN Referring Unavailable KYLEE WEISS Attending Unavailable GUILLORY ELVIRA Attending Unavailable GUILLORY, ELVIRA Referring Unavailable GUILLORY, ELVIRA Referring Unavailable GUILLORY, ELVIRA Attending Unavailable GUILLORY, ELVIRA Referring Unavailable GUILLORY, ELVIRA Attending Unavailable GUILLORY, ELVIRA Referring Unavailable GUILLORY, ELVIRA Referring Unavailable GUILLORY, ELVIRA Attending Unavailable GUILLORY, ELVIRA Referring Unavailable GUILLORY, ELVIRA Attending Unavailable NANCY LAMBERT Referring Unavailable VIVIANA ASHTON Attending Unavailable NANCY LAMBERT Attending Unavailable GABRIELLA HOFFMAN Attending Unavailable Medications Current Medications Medication Drug Class(es) Dates Sig (Normalized) Sig (Original) [id number] 200 actuat albuterol 0.09 mg/actuat metered dose inhaler (20 sources) beta2-Adrenergic Agonist Start: 12-17-2021 take 2 puff(s) by inhalation every four hours as needed albuterol HFA (PROAIR HFA) 90 mcg/actuation inhaler Indications: URI, acute , History of asthma Inhale 2 Puffs as instructed every 4 hours as needed. 1 Each 12/17/2021 Active Comment on above: Inhale 2 Puffs as in structed every 4 hours as needed. amoxicillin 500 mg oral capsule (1 source) Penicillin-class Antibacterial Start: 06-09-2024 take 1 capsule by mouth three times daily Amoxicillin 500 mg capsule Active 500 mg PO THREE TIMES A DAY 26 09June 09, 2024 12:00am aspirin 81 mg delayed release oral tablet (20 sources) Platelet Aggregation Inhibitor, Nonsteroidal Anti-inflammatory Drug Start: 06-09-2024 take 1 capsule by mouth once daily Aspirin 81 mg capsule Active 81 mg PO DAILY June 09, 2024 12:00am Start: 04-11-2024 End: 05-17-2024 take 1 tablet by mouth once daily aspirin, enteric coated (ECOTRIN LOW STRENGTH) 81 mg EC tablet Indications: with uncertain dates, antepartum Take 1 tablet by mouth once daily. 90 tablet 3 04/11/2024 05/17/2024 Discontinued (Course of therapy completed) Start: 06-13-2023 End: 08-26-2023 take 1 tablet by mouth once daily Aspirin 81 mg tablet,delayed release (DR/EC) Discontinued 81 mg PO .Qday June 13, 2023 12:00am August 26, 2023 6:58am Start: 06-13-2023 Aspirin Active MG June 13, 2023 12:00am Start: 02-11-2023 End: 09-07-2024 take 2 tablets by mouth once daily aspirin, enteric coated (ASPIRIN, ENTERIC COATED) 81 mg EC tablet Take 2 tablets by mouth once daily. 60 tablet 5 09/07/2024 Active Start: 02-10-2022 take 1 tablet by rosie th once daily Aspirin (Baby Aspirin) 81 mg Tablet,Chewable Active 81 MG PO DAILY February 10, 2022 12:00am Start: 10-22-2021 End: 08-06-2022 take 1 tablet by mouth once daily aspirin, enteric coated (ECOTRIN LOW STRENGTH) 81 mg EC tablet Take 1 tablet by mouth once daily. 30 tablet 5 02/07/2022 05/16/2022 Discontinued (Course of therapy completed) Comment on above: Take 1 tablet by roise th once daily. Take 2 tablets by mo uth once daily. Breast Pump (7 sources) Start: 09-28-2024 End: 09-28-2025 Breast Pump Use as directed 1 each 09/28/2024 09/28/2025 Active docusate sodium 100 mg oral capsule (20 sources) Start: 05-17-2024 End: 09-07-2024 take 1 capsule by mouth twice daily docusate sodium (COLACE) 100 mg capsule Take 1 capsule by mouth two times a day. 60 capsule 3 09/07/2024 Active ferrous sulfate 325 mg oral tablet (9 sources) Start: 09-07-2024 take 1 tablet by mouth every other day ferrous sulfate 325 mg (65 mg iron) tablet Indications: Anemia complicating , third trimester (HCC) Take 1 tablet by mouth every other day. 15 tablet 3 09/07/2024 Active Start: 08-26-2023 End: 01-05-2024 take 1 tablet by mouth once daily Ferrous Sulfate (Ferosul) 325 MG tablet Discontinued 325 mg PO DAILY 30 60 August 26, 2023 12:00am January 05, 2024 7:46pm fluconazole 150 mg oral tablet (2 sources) Azole Antifungal Start: 02-03-2024 End: 02-03-2024 fluconazole (DIFLUCAN) 150 mg tablet Take 1 tablet by mouth one time only for 1 dose. Repeat in 3 days as needed. 2 tablet 02/03/2024 02/03/2024 Active fosfomycin 3000 mg powder for oral solution (2 sources) Start: 11-22-2021 End: 11-22-2021 take 1 dose by mouth once fosfomycin (MONUROL) 3 g pack Indications: Asymptomatic bacteriuria during Take 1 Packet by mouth one time only for 1 dose. 1 Packet 0 11/22/2021 11/22/2021 Active Start: 11-01-2021 End: 11-01-2021 take 1 dose by mouth once fosfomycin (MONUROL) 3 g pac k Indications: Asymptomatic bacteriuria during Take 1 Packet by mouth one time only for 1 dose. 1 Packet 0 11/01/2021 11/01/2021 Active Comment on above: Take 1 Packet by rosie one time only for 1 dose. metoclopramide 5 mg oral tablet (4 sources) Dopamine-2 Receptor Antagonist Start: 04-30-19 take 1 tablet by mouth every six hours Metoclopramide Hcl (Reglan) 5 mg tablet Active 5 mg PO EVERY 6 HOURS April 30, 2024 1:00am Start: 04-26-2023 End: 06-13-2023 take 1 tablet by mouth every six hours as needed for nausea and vomiting Metoclopramide Hcl (Reglan) 5 mg tablet Discontinued 5 mg PO EVERY 6 HOURS as needed for nausea and vomiting 8 2 April 26, 2023 8:48pm June 13, 2023 4:44am metroNIDAZOLE 500 mg oral tablet (12 sources) Nitroimidazole Antimicrobial Start: 02-03-2024 End: 02-10-2024 take 1 tablet by mouth twice daily metroNIDAZOLE (FLAGYL) 500 mg tablet Take 1 tablet by mouth two times a day for 7 days. 14 tablet 02/03/2024 02/10/2024 Active Start: 02-04-2023 End: 04-26-2023 take 1 tablet by mouth every twelve hours Metronidazole 500 mg tablet Discontinued 500 mg PO Q12H February 04, 2023 1:00am April 26, 2023 7:50pm Start: 01-30-2023 End: 02-12-2023 take 1 tablet by mouth twice daily metroNIDAZOLE (FLAGYL) 500 mg tablet Take 1 tablet by mouth two times a day for 7 days. 14 tablet 0 02/05/2023 02/12/2023 Active Comment on above: Take 1 tablet by rosie two times a day for 7 days. oseltamivir 75 mg oral capsule (1 source) Neuraminidase Inhibitor Start: 02-16-20 End: 02-21-20 take 1 capsule by mouth twice daily oseltamivir (TAMIFLU) 75 mg capsule Indications: Flu-like symptoms Take 1 capsule by mouth twice daily for 5 days. 10 capsule 0 02/15/2022 02/20/2022 Active Comment on above: Take 1 capsule by mo [facility] twice daily for 5 days. pantoprazole 20 mg delayed release oral tablet (6 sources) Proton Pump Inhibitor Start: 11-04-19 take 1 tablet by mouth once daily pantoprazole DR (PROTONIX) 20 mg tablet Take 1 tablet by mouth once daily. 30 tablet 1 11/03/2024 Active Start: 07-20-2022 End: 02-04-2023 take 1 tablet by mouth once daily Pantoprazole (Protonix) 40 mg tablet,delayed release (DR/EC) Discontinued 40 mg PO DAILY July 20, 2022 12:00am February 04, 2023 6:45pm phenazopyridine hydrochloride 200 mg oral tablet (1 source) Start: 06-09-2024 take 1 tablet by mouth three times daily Phenazopyridine (Pyridium) 200 mg tablet Active 200 mg PO THREE TIMES A DAY 6 June 09, 2024 12:00am Xjarauvl-Oo-Lrq-Fe-FA tab (20 sources) Start: 04-11-2024 take 1 tablet by mouth once daily Fpsdbdro-Ic-Wah-Fe-FA tab Indications: Hx of pre-eclampsia, prior , currently (HCC) Take 1 tablet by mouth once daily. With DHA and folic acid as covered by insurance. 30 tablet 11 04/11/2024 Active Start: 04-11-2024 take 1 tablet by rosie th once daily Rqjhnaml-Vs-Jem-Fe-FA tab Indications: Hx of pre-eclampsia, prior , currently Take 1 tablet by mouth once daily. With DHA and folic acid as covered by insurance. 30 tablet 11 04/11/2024 Active Completed/Discontinued Medications Medication Drug Class(es) Dates Sig (Normalized) Sig (Original) acetaminophen 500 mg oral tablet (20 sources) Start: 08-26-2023 End: 01-05-2024 take 1-10 tablets by mouth every six hours as needed for pain Acetaminophen 500 mg Tablet Discontinued 1000 mg PO EVERY 6 HOURS NEEDED as needed for Pain 1-10 Or Fever August 26, 2023 12:00am January 05, 2024 7:46pm Start: 04-23-2022 take 1000 mg by mout h every six hours as needed Acetaminophen Active 1000 MG PO EVERY 6 HOURS NEEDED April 23, 2022 1:00am Start: 03-06-2022 End: 02-11-2023 take 2 tablets by mouth every six hours as needed acetaminophen (TYLENOL EXTRA STRENGTH) 500 mg tablet Take 2 tablets by mouth every 6 hours as needed for pain. FOR PAIN. 60 tablet 1 03/06/2022 02/11/2023 Discontinued (Course of therapy completed) Comment on above: Take 2 tablets by mo uth every 6 hours as needed for pain. FOR PAIN. azithromycin 500 mg oral tablet (8 sources) Macrolide Antimicrobial Start: 04-08-19 End: 04-08-19 take 2 tablets by mouth once azithromycin (ZITHROMAX) 500 mg tablet Take 2 tablets by mouth one time only for 1 dose. 2 tablet 04/08/2024 04/08/2024 Start: 02-04-2023 End: 02-04-2023 take 1 tablet by mouth every twelve hours Azithromycin 500 mg tablet Discontinued 500 mg PO Q12H February 04, 2023 1:00am February 04, 2023 7:05pm Start: 01-30-2023 End: 01-30-2023 take 2 tablets by mouth once azithromycin (ZITHROMAX) 500 mg tablet Take 2 tablets by mouth one time only for 1 dose. 2 tablet 0 01/30/2023 01/30/2023 Comment on above: Take 2 tablets by mo ut one time only for 1 dose. cefTRIAXone 500 mg injection (2 sources) Cephalosporin Antibacterial Start: End: inject 1 dose by intramuscular injection once 500 mg, INTRAMUSCULAR, ONCE, 1 dose, On Thu02/03/24 at 0930, Antimicrobial indication: Empiric, Infectious source(s): Sexually transmitted Start: 02-03-2024 End: 02-03-2024 cefTRIAXone 500 mg intramusc ular injection (ROCEPHIN) cephalexin 500 mg oral capsule (16 sources) Cephalosporin Antibacterial Start: 01-05-2024 End: 04-30-2024 take 1 capsule by mouth every twelve hours Cephalexin 500 mg capsule Discontinued 500 mg PO EVERY 12 HOURS January 05, 2024 12:00am April 30, 2024 7:48pm Start: 01-26-2023 End: 04-26-2023 take 1 capsule by mouth every six hours Cephalexin 500 mg capsule Discontinued 500 mg PO EVERY 6 HOURS January 26, 2023 1:00am April 26, 2023 7:50pm Start: 06-04-2020 End: 01-10-2021 take 1 capsule by mouth every twelve hours Cephalexin 500 MG capsule Discontinued 500 mg PO EVERY 12 HOURS June 04, 2020 12:00am January 10, 2021 8:42am doxylamine succinate 10 mg / pyridoxine hydrochloride 10 mg delayed release oral tablet (10 sources) Start: 05-17-2024 End: 09-07-2024 doxylamine-pyridoxine, vit B6, (DICLEGIS) 10-10 mg TbEC Take 2 tabs at night. If symptoms persist after 2 days add one tab in the morning. If symptoms still persist after 4 days add a tab mid-day 100 tablet 2 05/17/2024 09/07/2024 Discontinued (Discontinued by Patient) escitalopram 10 mg oral tablet (1 source) Serotonin Reuptake Inhibitor Start: 01-05-2024 End: 04-30-2024 take 1 tablet by mouth once daily Escitalopram Oxalate 10 mg tablet Discontinued 10 mg PO DAILY January 05, 2024 12:00am April 30, 2024 8:08pm famotidine 20 mg oral tablet (6 sources) Histamine-2 Receptor Antagonist Start: 06-28-2022 End: 02-04-2023 take 1 tablet by mouth twice daily Famotidine (Pepcid) 20 mg tablet Discontinued 20 mg PO TWICE A DAY 60 June 28, 2022 12:00am February 04, 2023 6:45pm ibuprofen 600 mg oral tablet (3 sources) Nonsteroidal Anti-inflammatory Drug Start: 08-26-2023 End: 01-05-2024 take 1 tablet by mouth every six hours as needed for pain Ibuprofen 600 mg Tablet Discontinued 600 mg PO EVERY 6 HOURS NEEDED as needed for Pain Score 1-10 August 26, 2023 12:00am January 05, 2024 7:46pm Start: 04-23-2022 take 600 mg by mouth every six hours as needed Ibuprofen Active 600 MG PO EVERY 6 HOURS NEEDED April 23, 2022 1:00am labetalol hydrochloride 200 mg oral tablet (7 sources) beta-Adrenergic Saul Start: 01-10-2021 End: 11-22-2021 labetalol (TRANDATE) 200 mg tablet Take by mouth three times daily. 0 01/10/2021 11/22/2021 Discontinued (Course of therapy completed) Comment on above: Take by mouth three times daily. miconazole nitrate 20 mg/ml vaginal cream (7 sources) Azole Antifungal Start: 02-04-2023 End: 04-26-2023 Miconazole Nitrate 2 % cream Discontinued 1 NMA VAGINAL AT BEDTIME February 04, 2023 1:00am April 26, 2023 7:50pm Start: 02-04-2023 End: 04-26-2023 Miconazole Nitrate Discontin ued 1 APPFUL VAGINAL AT BEDTIME February 04, 2023 1:00am April 26, 2023 7:50pm Start: 01-28-2023 End: 02-04-2023 miconazole (MICONAZOLE-7) 2 % vaginal cream Use 1 Applicator vaginally daily at bedtime for 7 days. 54 g 0 01/28/2023 02/04/2023 Comment on above: Use 1 Applicator vag inally daily at bedtime for 7 days. omeprazole 40 mg delayed release oral capsule (6 sources) Proton Pump Inhibitor Start: End: take 1 capsule by mouth once daily Omeprazole 40 mg capsule,delayed release(DR/EC) Discontinued 40 mg PO DAILY October 07, 2022 12:00am February 04, 2023 6:45pm Start: 05-27-2022 take 40 mg by mouth once daily Omeprazole Active 40 MG PO DAILY May 27, 2022 12:00am ondansetron 8 mg disintegrating oral tablet (20 sources) Serotonin-3 Receptor Antagonist Start: 05-17-2024 End: 09-07-2024 take 1 tablet by mouth every eight hours as needed ondansetron orally disintegrating (ZOFRAN ODT) 8 mg disintegrating tablet Take 1 tablet by mouth every 8 hours as needed for nausea/vomiting. 30 tablet 2 05/17/2024 09/07/2024 Discontinued (Discontinued by Patient) Start: 2024 End: 07-28-2024 take 1 tablet by mouth every eight hours as needed ondansetron (ZOFRAN) 4 mg tablet Take 1 tablet by mouth every 8 hours as needed for nausea/vomiting. 30 tablet 3 2024 05/17/2024 Discontinued (Course of therapy completed) Start: 01-05-2023 End: 08-20-2023 take 1 tablet by mouth every eight hours as needed for nausea and vomiting Ondansetron 8 mg tablet,disintegrating Discontinued 8 mg PO Q8H as needed for nausea and vomiting February 04, 2023 1:00am April 26, 2023 7:50pm Start: 10-21-2021 End: 05-16-2022 take 1 tablet by mouth every eight hours as needed for nausea ondansetron (ZOFRAN) 4 mg tablet Indications: 8 weeks gestation of , Nausea and vomiting in Take 1 tablet by mouth every 8 hours as needed for nausea/vomiting. 60 tablet 1 10/21/2021 05/16/2022 Discontinued (Course of therapy completed) Comment on above: Take 1 tablet by rosie th every 8 hours as needed for nausea/vomiting. Dissolve 1 (ONE) TAB LET on the tongue EVERY 8 HOURS NEEDED FOR NAUSEA Pnv 119-Iron Fum-Folic Acid [ Vitamins No.119-Iron Fumarate 29 Mg-Folic Acid 1 Mg Tablet] ( Vitamins No.119-Iron Fumarate 29 Mg-Folic ) 29 mg iron- 1 mg tablet (4 sources) Start: 02-04-2023 End: 04-26-2023 Pnv 119-Iron Fum-Folic Acid [ Vitamins No.119-Iron Fumarate 29 Mg-Folic Acid 1 Mg Tablet] ( Vitamins No.119-Iron Fumarate 29 Mg-Folic ) 29 mg iron- 1 mg tablet Discontinued 1 {tbl} PO DAILY February 04, 2023 1:00am April 26, 2023 7:50pm Start: 02-04-2023 End: 04-26-2023 take 1 tablet by mouth once daily Pnv 119-Iron Fum-Folic Acid [ Vitamins No.119-Iron Fumarate 29 Mg-Folic Acid 1 Mg Tablet] ( Vitamins No.119-Iron Fumarate 29 Mg-Folic ) 29 mg iron- 1 mg tablet Discontinued 1 TABLET PO DAILY February 04, 2023 1:00am April 26, 2023 7:50pm Start: 02-04-2023 End: 04-26-2023 take 1 tablet by mouth once daily Pnv 119-Iron Fum-Folic Acid [ Vitamins No.119-Iron Fumarate 29 Mg-Folic Acid 1 Mg Tablet] ( Vitamins No.119-Iron Fumarate 29 Mg-Folic ) 29 mg iron- 1 mg tablet Discontinued 1 TABLET PO DAILY February 04, 2023 12:00am April 26, 2023 6:50pm Start: 02-04-2023 take 1 tablet by rosie th once daily Pnv 119-Iron Fum-Folic Acid [ Vitamins No.119-Iron Fumarate 29 Mg-Folic Acid 1 Mg Tablet] ( Vitamins No.119-Iron Fumarate 29 Mg-Folic ) 29 mg iron- 1 mg tablet Active 1 TABLET PO DAILY February 04, 2023 12:00am Pnv Cmb#95-Ferrous Fumarate- Fa () 28 mg iron- 800 mcg tablet (2 sources) Start: 06-13-2023 End: 01-05-2024 Pnv Cmb#95-Ferrous Fumarate- Fa () 28 mg iron- 800 mcg tablet Discontinued 1 {tbl} PO DAILY June 13, 2023 12:00am January 05, 2024 7:46pm Start: 06-13-2023 take 1 tablet by rosie th once daily Pnv Cmb#95-Ferrous Fumarate-Fa () 28 mg iron- 800 mcg tablet Active 1 TABLET PO DAILY June 13, 2023 12:00am PNV no.608-[id number]-dha-epa-fi sh ( GUMMIES) 400 mcg-35 mg- 25 mg-5 mg chew (20 sources) Start: 10-21-2021 End: 09-28-2024 take 1 tablet by mouth once daily PNV no.294-PI-gz5-iff-cfl-kzyc ( GUMMIES) 400 mcg-35 mg- 25 mg-5 mg chew Indications: 8 weeks gestation of (HCC) Take 1 tablet by mouth once daily. 30 tablet 5 10/21/2021 09/28/2024 Discontinued Start: 10-21-2021 take 1 tablet by rosie th once daily PNV no.845-CN-zq8-xdf-zaw-uopg ( GUMMIES) 400 mcg-35 mg- 25 mg-5 mg chew Indications: 8 weeks gestation of (HCC) Take 1 tablet by mouth once daily. 30 tablet 5 10/21/2021 Active Start: 10-21-2021 take 1 tablet by rosie th once daily PNV no.137-NX-kt9-ldu-nvv-kaql ( GUMMIES) 400 mcg-35 mg- 25 mg-5 mg chew Indications: 8 weeks gestation of Take 1 tablet by mouth once daily. 30 tablet 10/21/2021 Active Comment on above: Take 1 tablet by rosie th once daily. PNV without Ca-Iron PsCmplx-FA 29 mg iron- 1 mg chew (20 sources) Start: 01-28-2023 End: 04-11-2024 take 1 tablet by mouth once daily PNV without Ca-Iron PsCmplx-FA 29 mg iron- 1 mg chew Take 1 tablet by mouth once daily. 30 tablet 01/28/2023 04/11/2024 Discontinued (Course of therapy completed) Start: 01-28-2023 take 1 tablet by rosie th once daily PNV without Ca-Iron PsCmplx-FA 29 mg iron- 1 mg chew Take 1 tablet by mouth once daily. 30 tablet 01/28/2023 Active Comment on above: Take 1 tablet by rosie th once daily. promethazine hydrochloride 25 mg rectal suppository (4 sources) Phenothiazine Start: 02-05-20 End: 04-26-19 Promethazine 25 mg suppository Discontinued 25 mg RC EVERY 6 HOURS as needed for nausea and vomiting February 04, 2023 1:00am April 26, 2023 7:50pm sucralfate 1000 mg oral tablet (6 sources) Aluminum Complex Start: 06-29-19 End: 02-05-20 take 1 tablet by mouth twice daily Sucralfate (Carafate) 1 gram tablet Discontinued 1 g PO TWICE A DAY June 28, 2022 12:00am February 04, 2023 6:45pm Problems Active Problems Problem Classification Problem Date Documented Da te Episodic/Chronic Abdominal pain (18 sources) Epigastric pain; Translations: [Epigastric pain] 05-27-2022 Episodic Bacterial infection; unspecified site (1 source) Chlamydial infection; Translations: [Chlamydial infection, unspecified] 01-30-2023 Episodic Early or threatened labor (13 sources) Premature uterine contraction; Translations: [False labor before 37 completed weeks of gestation, unspecified trimester] 03-27-2022 Episodic Esophageal disorders (5 sources) Gastroesophageal reflux disease; Translations: [Gastro-esophageal reflux disease without esophagitis] 07-28-2022 Chronic Fetopelvic disproportion; obstruction (1 source) Shoulder girdle dystocia; Translations: [Obstructed labor due to shoulder dystocia] 08-24-2023 Episodic Gastritis and duodenitis (6 sources) Gastritis; Translations: [Gastritis, unspecified, without bleeding] 06-28-2022 Episodic Hemorrhage during ; abruptio placenta; placenta previa (1 source) Hemorrhage in early , unspecified; Translations: [Hemorrhage in early , unspecified] Onset: 5 Episodic Menstrual disorders (1 source) Missed period; Translations: [Irregular menstruation, unspecified] Chronic Nonspecific chest pain (7 sources) Chest pain; Translations: [Chest pain, unspecified] 05-27-2022 Episodic Other complications of ; puerperium affecting management of mother (11 sources) Teenage ; Translations: [Teen ] 01-18-2021 Episodic Other complications of (16 sources) Anemia in mother complicating , childbirth AND/OR puerperium; Translations: [Anemia complicating , third trimester] Onset: 5 09-07-2024 Chronic Other complications of (1 source) Anemia complicating , third trimester; Translations: [Anemia complicating , third trimester (HCC)] Onset: 5 Chronic Other complications of (20 sources) Nausea and vomiting; Translations: [Vomiting of , unspecified] Onset: 1 06-07-2020 Episodic Other complications of (2 sources) Asymptomatic bacteriuria in ; Translations: [Asymptomatic bacteriuria during ] Episodic Other complications of (9 sources) Abdominal pain in ; Translations: [Other specified related conditions, unspecified trimester] 02-12-2022 Episodic Other complications of (3 sources) Other specified related conditions, unspecified trimester; Translations: [Other specified complications of , unspecified as to episode of care or not applicable] 02-10-2022 Episodic Other complications of (3 sources) Supervision of with grand multiparity, third trimester; Translations: [Supervision of other high-risk ] 02-10-2022 Episodic Other complications of (9 sources) Hyperemesis gravidarum; Translations: [Mild hyperemesis gravidarum] 01-26-2023 Episodic Other complications of (1 source) Gastroesophageal reflux disease; Translations: [Diseases of the digestive system complicating , third trimester] 06-13-2023 Episodic Other complications of (1 source) Suspected macroscopic fetus; Translations: [Maternal care for excessive growth, third trimester, not applicable or unspecified] 10-18-2024 Episodic Other complications of (3 sources) Heartburn; Translations: [Other specified related conditions, third trimester] Onset: 5 11-03-2024 Episodic Other complications of (1 source) Other specified related conditions, third trimester; Translations: [Heartburn during in third trimester (HCC)] Onset: Episodic Other complications of (1 source) Supervision of high risk , unspecified, third trimester; Translations: [Supervision of high risk in third trimester (HCC)] Onset: Episodic Other female genital disorders (2 sources) Vaginal discharge; Translations: [Other specified noninflammatory disorders of vagina] 02-02-2024 Episodic Other female genital disorders (1 source) Uterine contractions present; Translations: [Other specified conditions associated with female genital organs and menstrual cycle] 11-03-2024 Episodic Other female genital disorders (1 source) Other specified conditions associated with female genital organs and menstrual cycle; Translations: [Uterine cramping] Onset: Episodic Other gastrointestinal disorders (1 source) Heartburn; Translations: [Heartburn during in third trimester (HCC)] Onset: Episodic Other screening for suspected conditions (not mental disorders or infectious disease) (12 sources) Patient encounter status; Translations: [Encounter for other specified screening] Onset: Episodic Other screening for suspected conditions (not mental disorders or infectious disease) (1 source) Encounter for other specified screening; Translations: [Encounter for anatomic survey] Onset: 9 Polyhydramnios and other problems of amniotic cavity (11 sources) Premature rupture of membranes; Translations: [Premature rupture of membranes, unspecified as to length of time between rupture and onset of labor, unspecified weeks of gestation] 01-18-2021 Episodic Residual codes; unclassified (1 source) Gestation period, 17 weeks; Translations: [17 weeks gestation of ] Episodic Residual codes; unclassified (4 sources) Gestation period, 20 weeks; Translations: [20 weeks gestation of ] Episodic Residual codes; unclassified (1 source) Gestation period, 24 weeks; Translations: [24 weeks gestation of ] Episodic Residual codes; unclassified (12 sources) Gestation period, 29 weeks; Translations: [29 weeks gestation of ] Episodic Residual codes; unclassified (1 source) Gestation period, 28 weeks; Translations: [28 weeks gestation of ] Episodic Residual codes; unclassified (1 source) Gestation period, 30 weeks; Translations: [30 weeks gestation of ] Episodic Residual codes; unclassified (4 sources) Gestation period, 32 weeks; Translations: [32 weeks gestation of ] Episodic Residual codes; unclassified (3 sources) Gestation period, 34 weeks; Translations: [34 weeks gestation of ] Episodic Residual codes; unclassified (10 sources) Gestation period, 35 weeks; Translations: [35 weeks gestation of ] 03-27-2022 Episodic Residual codes; unclassified (4 sources) 29 weeks gestation of ; Translations: [ state, incidental] Onset: 02-10-2022 Episodic Residual codes; unclassified (4 sources) 35 weeks gestation of ; Translations: [ state, incidental] 03-27-2022 Episodic Residual codes; unclassified (1 source) Gestation period, 26 weeks; Translations: [26 weeks gestation of ] Episodic Residual codes; unclassified (1 source) Contact with and (suspected) exposure to lead; Translations: [Personal history of contact with and (suspected) exposure to lead] Episodic Residual codes; unclassified (2 sources) Gestation period, 36 weeks; Translations: [36 weeks gestation of ] Episodic Residual codes; unclassified (3 sources) Gestation period, 37 weeks; Translations: [37 weeks gestation of ] Episodic Residual codes; unclassified (2 sources) Gestation period, 38 weeks; Translations: [38 weeks gestation of ] Episodic Residual codes; unclassified (9 sources) Gestation period, 39 weeks; Translations: [39 weeks gestation of ] Episodic Residual codes; unclassified (3 sources) 39 weeks gestation of ; Translations: [ state, incidental] 04-23-2022 Episodic Residual codes; unclassified (1 source) Gestation period, 9 weeks; Translations: [9 weeks gestation of ] 01-28-2023 Episodic Residual codes; unclassified (3 sources) Gestation period, 11 weeks; Translations: [11 weeks gestation of ] 02-11-2023 Episodic Residual codes; unclassified (1 source) Gestation period, 23 weeks; Translations: [23 weeks gestation of ] 05-07-2023 Episodic Residual codes; unclassified (2 sources) Gestation period, 25 weeks; Translations: [25 weeks gestation of ] 05-21-2023 Episodic Residual codes; unclassified (1 source) Gestation period, 27 weeks; Translations: [27 weeks gestation of ] 06-03-2023 Episodic Residual codes; unclassified (2 sources) Gestation period, 12 weeks; Translations: [12 weeks gestation of ] 05-17-2024 Episodic Residual codes; unclassified (1 source) Gestation period, 16 weeks; Translations: [16 weeks gestation of ] 06-13-2024 Episodic Residual codes; unclassified (1 source) Personal history of other complications of , childbirth and the puerperium; Translations: [History of shoulder dystocia in prior ] Onset: Episodic Residual codes; unclassified (1 source) 37 weeks gestation of ; Translations: [37 weeks gestation of (HCC)] Onset: 5 Episodic Residual codes; unclassified (1 source) 34 weeks gestation of ; Translations: [34 weeks gestation of (HCC)] Onset: 5 Episodic Residual codes; unclassified (1 source) 32 weeks gestation of ; Translations: [32 weeks gestation of (HCC)] Onset: 5 Episodic Residual codes; unclassified (1 source) 25 weeks gestation of ; Translations: [25 weeks gestation of (HCC)] Onset: 5 Episodic Sexually transmitted infections (not HIV or hepatitis) (2 sources) Gonorrhea; Translations: [Gonococcal infection, unspecified] 02-03-2024 Episodic Substance-related disorders (1 source) Marijuana user; Translations: [Drug use complicating , unspecified trimester] 01-28-2023 Episodic Unclassified (10 sources) Normal labor; Translations: [Active labor at term] 11-11-2018 Unclassified (20 sources) [facility] Education - COMMON Onset: 3 01-28-2023 Unclassified (20 sources) Education - [place] Onset: 3 01-28-2023 Unclassified (1 source) Finding of pattern of 09-28-2024 Unclassified (1 source) History of shoulder dystocia 09-28-2024 Urinary tract infections (7 sources) Urinary tract infectious disease; Translations: [Urinary tract infection, site not specified] 01-26-2023 Episodic Viral infection (11 sources) Genital warts; Translations: [Anogenital (venereal) warts] 04-23-2022 Episodic Past or Other Problems Problem Classification Problem Date Documented Date Episodic/Chronic Genitourinary symptoms and ill-defined conditions (20 sources) Bacteriuria; Translations: [Bacteriuria] Onset: 11-01-2021 Resolved: 04-11-2024 11-01-2021 Episodic Immunizations and screening for infectious disease (5 sources) Vaccination needed; Translations: [Encounter for immunization] Onset: 04-11-2024 Episodic Other complications of (20 sources) Venereal disease in mother complicating , childbirth AND/OR puerperium; Translations: [Other infections with a predominantly sexual mode of transmission complicating , unspecified trimester] Onset: 07-30-2018 07-30-2018 Episodic Other complications of (20 sources) Late entry into care; Translations: [Supervision of with insufficient care, unspecified trimester] Onset: 08-11-2018 Resolved: 04-11-2024 Episodic Other complications of (20 sources) Urinary tract infection in ; Translations: [Unspecified infection of urinary tract in , unspecified trimester] Onset: 06-07-2020 Resolved: 10-24-2021 06-07-2020 Episodic Other complications of (20 sources) History of pre-eclampsia; Translations: [Supervision of with other poor reproductive or obstetric history, unspecified trimester] Onset: 10-21-2021 10-21-2021 Episodic Other complications of (20 sources) High risk ; Translations: [Supervision of high risk , unspecified, third trimester] Onset: 07-29-2018 Episodic Other complications of (20 sources) Finding of pattern of ; Translations: [Supervision of other high risk pregnancies, unspecified trimester] Onset: 01-21-2023 01-21-2023 Episodic Other complications of (20 sources) Candidiasis of vagina in ; Translations: [Other maternal infectious and parasitic diseases complicating , unspecified trimester] Onset: 01-28-2023 Resolved: 04-11-2024 01-28-2023 Episodic Other complications of (20 sources) Chlamydia trachomatis infection in ; Translations: [Other infections with a predominantly sexual mode of transmission complicating , first trimester] Onset: 02-11-2023 Resolved: 04-11-2024 02-11-2023 Episodic Other complications of (20 sources) Abnormal chromosomal and genetic finding on screening of mother; Translations: [Abnormal chromosomal and genetic finding on screening of mother] Onset: 03-11-2023 03-11-2023 Episodic Other complications of (20 sources) Vomiting of , unspecified; Translations: [Unspecified vomiting of , unspecified as to episode of care or not applicable] Onset: 06-07-2020 Resolved: 04-11-2024 01-21-2023 Episodic Other complications of (1 source) Supervision of high risk , unspecified, second trimester; Translations: [Supervision of high risk in second trimester (HCC)] Onset: 05-21-2023 Episodic Other complications of (2 sources) Supervision of with other poor reproductive or obstetric history, unspecified trimester; Translations: [Hx of pre-eclampsia, prior , currently (HCC)] Onset: 01-21-2023 Episodic Other complications of (1 source) Supervision of other high risk pregnancies, unspecified trimester; Translations: [Short interval between pregnancies affecting , antepartum (HCC)] Onset: 04-11-2024 Episodic Other complications of (1 source) Supervision of high risk , unspecified, first trimester; Translations: [Supervision of high risk in first trimester] Onset: 05-09-2024 Episodic Other and delivery including normal (20 sources) Vaginal delivery; Translations: [Encounter for full-term uncomplicated delivery] Onset: 07-29-2018 Resolved: 10-24-2021 07-29-2018 Episodic Other upper respiratory infections (4 sources) Upper respiratory infection; Translations: [Acute upper respiratory infection, unspecified] Onset: 01-18-2024 01-04-2024 Episodic Residual codes; unclassified (20 sources) History of shoulder dystocia; Translations: [Personal history of other complications of , childbirth and the puerperium] Onset: 04-11-2024 04-11-2024 Episodic Residual codes; unclassified (20 sources) H/O: miscarriage; Translations: [Personal history of other complications of , childbirth and the puerperium] Onset: 04-11-2024 04-11-2024 Episodic Residual codes; unclassified (1 source) 20 weeks gestation of ; Translations: [20 weeks gestation of (HCC)] Onset: 07-11-2024 Episodic Screening and history of mental health and substance abuse codes (20 sources) History of clinical finding in subject; Translations: [Personal history of nicotine dependence] Onset: 06-07-2020 Resolved: 04-11-2024 06-07-2020 Episodic Substance-related disorders (20 sources) History of clinical finding in subject; Translations: [History of marijuana use] Onset: 01-21-2023 Resolved: 04-11-2024 01-21-2023 Chronic Unclassified (1 source) dates Onset: 06-22-2018 Results Test Name Value Interpretation Reference Range Facil ity ROUTINE, GROUP B ST REPTOCOCCUS BY PCRon 11-03-2024 ROUTINE, GROUP B STREPTOCOCCUS BY PCR Detected Abnormal [facility] Comment on above: Performed By: #### G BPCR ####[facility] LABCLIA [id number] [place] [address] [place] URINE OB DIP B/Oon Glucose Ql (U) Negative Neg mg/dL [facility] Interpretation and review of laboratory results Normal [facility] Protein.monoclonal (U) [Mass/Vol] Negative Neg mg/dL [facility] CNPNon 10-24-2024 CNPN Telephone (OBGYWM) ---- DEEELEUTERIOH ([id number]) 2 F Date Time Provider Department 10/24/24 ELVIRA GUILLORY During your visit today, we recorded the following information about you: Concepcion Laird RN 10/24/2024 9:19 AM Signed Breast pump order received from [employer]. To JOHANNY to sign. RATNA Sage Trisha, RN 10/24/2024 3:08 PM Signed Order signed and faxed. Concepcion Laird RN Allergies As of Date: 10/24/2024 (No Known Allergies) Date Reviewed: 10/18/2024 Reviewed by: Selam Rodriguez MA - Fully Assessed Reason for Visit: Breast Pump [Other] Prescriptions as of 10/24/2024 - Breast Pump Use as directed - aspirin, enteric coated (ASPIRIN, ENTERIC COATED) 81 mg EC tablet Take 2 tablets by mouth once daily. - docusate sodium (COLACE) 100 mg capsule Take 1 capsule by mouth two times a day. - ferrous sulfate 325 mg (65 mg iron) tablet Take 1 tablet by mouth every other day. - Rwgkguld-Ym-Lar-Fe- FA tab Take 1 tablet by mouth once daily. With DHA and folic acid as covered by insurance. - albuterol HFA (PROAIR HFA) 90 mcg/actuation inhaler Inhale 2 Puffs as instructed every 4 hours as needed. Problem List As Of Date 10/24/2024 Noted Resolved Supervision of high risk in third tri*07/29/2018 with care elsewhere, antepar*07/29/2018 10/24/2021 Genital warts complicating [O98.319, *07/30/2018 Late care affecting , antepar*08/11/2018 04/11/2024 Nausea and vomiting in [O21.9] 06/07/2020 04/11/2024 UTI (urinary tract infection) in , ant*06/07/2020 10/24/2021 History of nicotine vaping [Z87.891] 06/07/2020 04/11/2024 Patient request for diagnostic testing [Z01.89] 10/21/2021 04/11/2024 Hx of pre-eclampsia, prior , currently* 2 Bacteriuria [R82.71] 11/01/2021 04/11/2024 Short interval between pregnancies affecting pr*01/21/2023 History of marijuana use [F12.91] 01/21/2023 04/11/2024 Candidiasis of vagina during [O98.819*01/28/2023 04/11/2024 Chlamydia trachomatis infection in mother durin*02/11/2023 04/11/2024 Abnormal chromosomal and genetic finding on ant*03/11/2023 History of shoulder dystocia in prior * History of spontaneous [Z87.59] 04/11/2024 Anemia complicating , third trimester *09/07/2024 Encounter Status:Closed by CONCEPCION LAIRD on 10/24/24 Normal [facility] Examination level ultrasound on 10-18-2024 [facility] Radiology Study observation (narrative) [facility] URINE OB DIP B/Oon 5 Glucose Ql (U) Negative Neg mg/dL [facility] Interpretation and review of laboratory results Normal [facility] Protein.monoclonal (U) [Mass/Vol] Negative Neg mg/dL [facility] URINE OB DIP B/Oon 5 Glucose Ql (U) Negative Neg mg/dL [facility] Interpretation and review of laboratory results Normal [facility] Protein.monoclonal (U) [Mass/Vol] trace Neg mg/dL [facility] CNPNon 09-29-2024 CNPN Telephone ([id number]) ---- STACI PRICE ([id number]) 2 F Date Time Provider Department 09/29/24 KYLEE BUTLER [id number] During your visit today, we recorded the following information about you: Kylee Butler RN 09/29/2024 8:26 AM Signed 3rd risk assessment form submitted 09/29/2024 Allergies As of Date: 09/29/2024 (No Known Allergies) Date Reviewed: 09/28/2024 Reviewed by: Nancy Lambert MD - Fully Assessed Reason for Visit: Milk Sampler - Other [3602] Cmt: PRAF Prescriptions as of 09/29/2024 - Breast Pump Use as directed - aspirin, enteric coated (ASPIRIN, ENTERIC COATED) 81 mg EC tablet Take 2 tablets by mouth once daily. - docusate sodium (COLACE) 100 mg capsule Take 1 capsule by mouth two times a day. - ferrous sulfate 325 mg (65 mg iron) tablet Take 1 tablet by mouth every other day. - Qnmveniv-Ei-Pxa-Fe- FA tab Take 1 tablet by mouth once daily. With DHA and folic acid as covered by insurance. - albuterol HFA (PROAIR HFA) 90 mcg/actuation inhaler Inhale 2 Puffs as instructed every 4 hours as needed. Problem List As Of Date 09/29/2024 Noted Resolved Supervision of high risk in third tri*07/29/2018 with care elsewhere, antepar*07/29/2018 10/24/2021 Genital warts complicating [O98.319, *07/30/2018 Late care affecting , antepar*08/11/2018 04/11/2024 Nausea and vomiting in [O21.9] 06/07/2020 04/11/2024 UTI (urinary tract infection) in , ant*06/07/2020 10/24/2021 History of nicotine vaping [Z87.891] 06/07/2020 04/11/2024 Patient request for diagnostic testing [Z01.89] 10/21/2021 04/11/2024 Hx of pre-eclampsia, prior , currently* Bacteriuria [R82.71] 11/01/2021 04/11/2024 Short interval between pregnancies affecting pr*01/21/2023 History of marijuana use [F12.91] 01/21/2023 04/11/2024 Candidiasis of vagina during [O98.819*01/28/2023 04/11/2024 Chlamydia trachomatis infection in mother durin*02/11/2023 04/11/2024 Abnormal chromosomal and genetic finding on ant*03/11/2023 History of shoulder dystocia in prior * History of spontaneous [Z87.59] 04/11/2024 Anemia complicating , third trimester *09/07/2024 Encounter Status:Closed by KYLEE BUTLER on 09/29/24 Normal [facility] URINE OB DIP B/Oon 5 Glucose Ql (U) Negative Neg mg/dL [facility] Interpretation and review of laboratory results Normal [facility] Protein.monoclonal (U) [Mass/Vol] Negative Neg mg/dL [facility] CBC W Auto Differential pane l (Bld)on 09-07-2024 Basophils (Bld) [#/Vol] 10*3/uL Normal <0.11 C [facility] Comment on above: Order Comment: Speci men Type: BLOOD SPECIMENOrdering Facility: [facility] Address: [address] [place] [address] Performed By: #### 5 7021-8 ####[facility] N[facility] [id number] [place] [address] [place] Basophils/100 WBC (Bld) 0.2 % Normal [facility] Comment on above: Order Comment: Speci men Type: BLOOD SPECIMENOrdering Facility: [facility] Address: [address] [place] [address] Performed By: #### 5 7021-8 ####[facility] [id number] [place] [address] [place] Differential cell count method Nom (Bld) Auto Normal [facility] Comment on above: Order Comment: Speci men Type: BLOOD SPECIMENOrdering Facility: [facility] Address: [address] [place] [address] Performed By: #### 5 7021-8 ####[facility] JENNIFERWVALIA [id number] [place] [address] [place] Eosinophils (Bld) [#/Vol] 0.41 10*3/uL Normal <0.46 [facility] Comment on above: Order Comment: Speci men Type: BLOOD SPECIMENOrdering Facility: [facility] Address: [address] [place] [address] Performed By: #### 5 7021-8 ####[facility]PITALL[facility] [id number] [place] [address] [place] Eosinophils/100 WBC (Bld) 4.6 % Normal [facility] Comment on above: Order Comment: Speci men Type: BLOOD SPECIMENOrdering Facility: [facility] Address: [address] [place] [address] Performed By: #### 5 7021-8 ####[facility] [id number] [place] [address] [place] Erythrocyte distribution width (RBC) [Ratio] 13.2 % Normal 11.5-15.0 [facility] Comment on above: Order Comment: Speci men Type: BLOOD SPECIMENOrdering Facility: [facility] Address: [address] [place] [address] Performed By: #### 5 7021-8 ####[facility] [id number] [place] [address] [place] Hematocrit (Bld) [Volume fraction] 30.6 % Low 36.0-46.0 [facility] Comment on above: Order Comment: Speci men Type: BLOOD SPECIMENOrdering Facility: [facility] Address: [address] [place] [address] Performed By: #### 5 7021-8 ####[facility] HOSPITALNCLI [id number] [place] [address] [place] Hemoglobin (Bld) [Mass/Vol] 10.2 g/dL Low 11.5-15.5 [facility] Comment on above: Order Comment: Speci men Type: BLOOD SPECIMENOrdering Facility: [facility] Address: [address] [place] [address] Performed By: #### 5 7021-8 ####[facility]ITALNCDAV[facility] [id number] [place] [address] [place] Immature granulocytes (Bld) [#/Vol] 0.03 10*3/uL Normal <0.10 [facility] Comment on above: Order Comment: Speci men Type: BLOOD SPECIMENOrdering Facility: [facility] Address: [address] [place] [address] Performed By: #### 5 7021-8 ####[facility] [id number] [place] [address] [place] Immature granulocytes/100 WBC (Bld) 0.3 % Normal [facility] Comment on above: Order Comment: Speci men Type: BLOOD SPECIMENOrdering Facility: [facility] Address: [address] [place] [address] Performed By: #### 5 7021-8 ####[facility] [id number] [place] [address] [place] Lymphocytes (Bld) [#/Vol] 1.29 10*3/uL Normal 1.00-4.00 [facility] Comment on above: Order Comment: Speci men Type: BLOOD SPECIMENOrdering Facility: [facility] Address: [address] [place] [address] Performed By: #### 5 7021-8 ####[facility]PITALNCDAV[facility] [id number] [place] [address] [place] Lymphocytes/100 WBC (Bld) 14.5 % Normal [facility] Comment on above: Order Comment: Speci men Type: BLOOD SPECIMENOrdering Facility: [facility] Address: [address] [place] [address] Performed By: #### 5 7021-8 ####[facility] MARISELA [id number] [address] MCH (RBC) [Entitic mass] 28.7 pg Normal 26.0-34.0 [facility] Comment on above: Order Comment: Speci men Type: BLOOD SPECIMENOrdering Facility: [facility] Address: [address] [place] [address] Performed By: #### 5 7021-8 ####[facility] HOSPITALKIMMiriam [id number] [place] [address] [place] MCHC (RBC) [Mass/Vol] 33.3 g/dL Normal 30.5-36.[address] [facility] Comment on above: Order Comment: Speci men Type: BLOOD SPECIMENOrdering Facility: [facility] Address: [address] [place] [address] Performed By: #### 5 7021-8 ####[facility] HOSPITALKIMMiriam [id number] [place] [address] [place] MCV (RBC) [Entitic vol] 86.2 fL Normal 80.0-100.0 C [facility] Comment on above: Order Comment: Speci men Type: BLOOD SPECIMENOrdering Facility: [facility] Address: [address] [place] [address] Performed By: #### 5 7021-8 ####[facility] [id number] [place] [address] [facility] [place] Monocytes (Bld) [#/Vol] 0.54 10*3/uL Normal <0.87 [facility] Comment on above: Order Comment: Speci men Type: BLOOD SPECIMENOrdering Facility: [facility] Address: [address] [place] [address] Performed By: #### 5 7021-8 ####[facility] PLACIDWNCLIA [id number] [place] [address] [place] Monocytes/100 WBC (Bld) 6.1 % Normal [facility] Comment on above: Order Comment: Speci men Type: BLOOD SPECIMENOrdering Facility: [facility] Address: [address] [place] [address] Performed By: #### 5 7021-8 ####[facility]OSPITALLIA [id number] [place] [address] [place] Neutrophils (Bld) [#/Vol] 6.59 10*3/uL Normal 1.45-7.50 [facility] Comment on above: Order Comment: Speci men Type: BLOOD SPECIMENOrdering Facility: [facility] Address: [address] [place] [address] Performed By: #### 5 7021-8 ####[facility] HOSPITALA [id number] [place] [address] [place] Neutrophils/100 WBC (Bld) 74.3 % Normal [facility] Comment on above: Order Comment: Speci men Type: BLOOD SPECIMENOrdering Facility: [facility] Address: [address] [place] [address] Performed By: #### 5 7021-8 ####[facility] HOSPITALLIA [id number] [place] [address] [place] Nucleated RBC (Bld) [#/Vol] 10*3/uL Normal <0.01 [facility] Comment on above: Order Comment: Speci men Type: BLOOD SPECIMENOrdering Facility: [facility] Address: [address] [place] [address] Performed By: #### 5 7021-8 ####[facility] HOSPITALNCLIA [id number] [place] [address] [place] Nucleated RBC/100 WBC (Bld) [Ratio] 0.0 /100 WBC Normal [facility] Comment on above: Order Comment: Speci men Type: BLOOD SPECIMENOrdering Facility: [facility] Address: [address] [place] [address] Performed By: #### 5 7021-8 ####[facility]OSPITALNCDAVIS [facility] [id number] [place] [address] [place] Platelet mean volume (Bld) [Entitic vol] 11.5 fL Normal 9.0-12.7 [facility] Comment on above: Order Comment: Speci men Type: BLOOD SPECIMENOrdering Facility: [facility] Address: [address] [place] [address] Performed By: #### 5 7021-8 ####[facility]PITALNCDAVIS [facility] [id number] [place] [address] [place] Platelets (Bld) [#/Vol] 213 10*3/uL Normal 150-400 [facility] Comment on above: Order Comment: Speci men Type: BLOOD SPECIMENOrdering Facility: [facility] Address: [address] [place] [address] Performed By: #### 5 7021-8 ####[facility] [id number] [place] [address] [place] RBC (Bld) [#/Vol] 3.55 10*6/uL Low 3.90-5.20 [facility] Comment on above: Order Comment: Speci men Type: BLOOD SPECIMENOrdering Facility: [facility] Address: [address] [place] [address] Performed By: #### 5 7021-8 ####[facility] HOSPITALNCLI [id number] [place] [address] [place] WBC (Bld) [#/Vol] 8.88 10*3/uL Normal 3.70-11.00 [facility] Comment on above: Order Comment: Speci men Type: BLOOD SPECIMENOrdering Facility: [facility] Address: [address] [place] [address] Performed By: #### 5 7021-8 ####[facility] ABDELRAHMAN ANTONIO [id number] [place] [address] [place] Ferritin SerPl-mCncon 2024 Ferritin [Mass/Vol] 10.8 ng/mL Low 14.7-205.1 [facility] Comment on above: Order Comment: Speci men Type: SWAB Ordering Facility: [facility] Address: [address] [place] [address] Performed By: #### 3 6902-5, BVAMP #### [facility] CLIA [id number] [address] [place] [address] [place] GESTATIONAL GLUCOSE SCREEN, 1-HOUR, 50 GRAM, NON-FASTINGon 09-07-2024 Glucose [Mass/Vol] 111 mg/dL Normal 74-134 [facility] Comment on above: Order Comment: Speci men Type: SWAB Ordering Facility: [facility] Address: [address] [place] [address] Result Comment: [facility] Congress of Obstetricians and Gynecologists (Maryse/Ashkan) guidelines state a gestational diabetes mellitus positive screen is made, in women not previously diagnosed with overt diabetes, when the 1 hr plasma glucose level is equal to or above 140 mg/dL. The [facility] [employer] [place] recommends a 135 mg/dL cutoff. Performed By: #### 3 6902-5, BVAMP #### [facility] CLIA [id number] [address] [place] [address] [place] Iron and Iron binding capaci ty panelon 09-07-2024 Iron [Mass/Vol] 39 ug/dL Low 41-186 [facility] Comment on above: Order Comment: Speci men Type: SWAB Ordering Facility: [facility] Address: [address] [place] [address] Performed By: #### 3 6902-5, BVAMP #### [facility] CLIA [id number] [address] [place] [address] [place] Iron binding capacity [Mass/Vol] 500 ug/dL High 232-386 [facility] Comment on above: Order Comment: Speci men Type: SWAB Ordering Facility: [facility] Address: [address] [place] [address] Performed By: #### 3 6902-5, BVAMP #### [facility] CLIA [id number] [address] [place] [address] [place] Iron/TIBC [Molar ratio] 7.8 % Low 15.0-57.0 C [facility] Comment on above: Order Comment: Speci men Type: SWAB Ordering Facility: [facility] Address: [address] [place] [address] Performed By: #### 3 6902-5, BVAMP #### [facility] CLIA [id number] [address] [place] [address] [place] Reagin and Treponema pallidu m IgG and IgM [Interp]on 09-07-2024 T. pallidum IgG+IgM IA Ql (S) Non-Reactive Normal Nonreactive [facility] Comment on above: Order Comment: Speci men Type: SWAB Ordering Facility: [facility] Address: [address] [place] [address] Performed By: #### 3 6902-5, BVAMP #### [facility] CLIA [id number] [address] [place] [address] [place] Reagin+T pallidum IgG+IgM Se rPl-Impon 09-07-2024 Reagin and Treponema pallidum IgG and IgM [Interp] Cannot exclude recent Treponemal infection if specimen collected within 7-10 days after appearance of suspect lesions or 2-3 weeks after an exposure. Clinical correlation is required. Normal [facility] Comment on above: Order Comment: Speci men Type: SWAB Ordering Facility: [facility] Address: [address] [place] [address] Performed By: #### 3 6902-5, BVAMP #### [facility] CLIA [id number] [address] [place] [address] [place] [address] [place] CNPJeane 07-12-2024 CNPN Telephone ([id number]) ---- STACI PRICE ([id number]) 2 F Date Time Provider Department 07/12/24 KYLEE BUTLER [id number] During your visit today, we recorded the following information about you: Kylee Butler RN 07/12/2024 9:16 AM Signed 2nd risk assessment form submitted 07/12/2024. Kylee Butler RN Allergies As of Date: 07/12/2024 (No Known Allergies) Date Reviewed: 07/11/2024 Reviewed by: Curt Mauricio MA - Fully Assessed Reason for Visit: Milk Sampler - Other [0013] Cmt: SILVERIO Prescriptions as of 07/12/2024 - ondansetron orally disintegrating (ZOFRAN ODT) 8 mg disintegrating tablet Take 1 tablet by mouth every 8 hours as needed for nausea/vomiting. - doxylamine-pyridoxi ne, vit B6, (DICLEGIS) 10-10 mg TbEC Take 2 tabs at night. If symptoms persist after 2 days add one tab in the morning. If symptoms still persist after 4 days add a tab mid-day - aspirin, enteric coated (ASPIRIN, ENTERIC COATED) 81 mg EC tablet Take 2 tablets by mouth once daily. - docusate sodium (COLACE) 100 mg capsule Take 1 capsule by mouth two times a day. - Xnwgsqmc-Jg-Sem-Fe- FA tab Take 1 tablet by mouth once daily. With DHA and folic acid as covered by insurance. - albuterol HFA (PROAIR HFA) 90 mcg/actuation inhaler Inhale 2 Puffs as instructed every 4 hours as needed. - PNV no.016-ES-op1-dha-e pa-fish ( GUMMIES) 400 mcg-35 mg- 25 mg-5 mg chew Take 1 tablet by mouth once daily. Problem List As Of Date 07/12/2024 Noted Resolved Supervision of high risk in second tr*07/29/2018 with care elsewhere, antepar*07/29/2018 10/24/2021 Genital warts complicating [O98.319, *07/30/2018 Late care affecting , antepar*08/11/2018 04/11/2024 Nausea and vomiting in [O21.9] 06/07/2020 04/11/2024 UTI (urinary tract infection) in , ant*06/07/2020 10/24/2021 History of nicotine vaping [Z87.891] 06/07/2020 04/11/2024 Patient request for diagnostic testing [Z01.89] 10/21/2021 04/11/2024 Hx of pre-eclampsia, prior , currently* 2 Bacteriuria [R82.71] 11/01/2021 04/11/2024 Short interval between pregnancies affecting pr*01/21/2023 History of marijuana use [F12.91] 01/21/2023 04/11/2024 Candidiasis of vagina during [O98.819*01/28/2023 04/11/2024 Chlamydia trachomatis infection in mother durin*02/11/2023 04/11/2024 Abnormal chromosomal and genetic finding on ant*03/11/2023 History of shoulder dystocia in prior * History of spontaneous [Z87.59] 04/11/2024 Encounter Status:Closed by KYLEE BUTLER on 07/12/24 Normal [facility] Bacteria Ur Culton 5 Bacteria identified Cx Nom (U) ORGANISM ID: 1 50,000-<100,000 CFU/ml Normal urogenital harriett Normal [facility] Comment on above: Performed By: #### 6 30-4 ####[facility] [id number] [place] [address] [place] Examination level ultrasound on 07-11-2024 Indication Standard anatomic survey Impression The patient is referred for a standard anatomic survey. - Single, live, intrauterine . - biometry is consistent with the established gestational age. - No malformations were visualized on a complete standard anatomic survey. - The amniotic fluid volume is normal amount. - The placenta is posterior, fundal. - The Transabdominal cervical length measures 43.3 mm with no evidence of funneling or other dynamic changes. - Not all structural malformations can be detected by ultrasound examination. Recommendations Additional follow-up as clinically indicated. Maternal Assessment Height 165 cm Height (ft) 5 ft Height (in) 5 in Physical Exam Initial weight (lb) 177 lb Initial BMI 29.45 kg/m Maternal assessment other: 7 Para 4 REMOTE READ Method Transabdominal ultrasound examination. View: Adequate visualization Rosario . Number of fetuses: 1 Dating LMP on: 02/17/2024 GA by LMP 20 w + 5 d KIARA by LMP: 11/23/2024 GA by prior assessment 20 w + 5 d KIARA by prior assessment: 11/23/2024 Ultrasound examination on: 07/11/2024 GA by U/S based upon: AC, BPD, Femur, HC GA by U/S 21 w + 3 d KIARA by U/S: 11/18/2024 Assigned: based on stated KIARA, selected on 07/11/2024 Assigned GA 20 w + 5 d Assigned KIARA: 11/23/2024 General Evaluation Cardiac activity present. FHR 153 bpm. movements: present. Presentation: transverse head right Placenta: Placental site: posterior, fundal Umbilical cord: Cord vessels: 3 vessel cord Amniotic fluid: Amount of AF: normal amount. MVP 6.3 cm Growth Overview Exam date GA BPD (mm) HC (mm) AC (mm) FL (mm) HL (mm) EFW (g) 07/11/2024 20w 5d 47.6 36% 185.6 56% 173 87% 36.7 91% 33.9 77% 452 92% Biometry Standard BPD 47.6 mm 20w 3d 36% Hadlock OFD 67.6 mm 21w 1d 90% Nicolaides HC 185.6 mm 20w 6d 56% Ade Cerebellum tr 23.0 mm 21w 2d 85% Hill Nuchal fold 3.2 mm AC 173.0 mm 22w 2d 87% Hadlock Femur 36.7 mm 21w 6d 91% Ade Humerus 33.9 mm 21w 4d 77% Ade EFW 452 g 21w 5d 92% Hadlock EFW (lb) 1 lb EFW (oz) 0 oz EFW by: Hadlock (HC-AC-FL) Extended Manufacturing Engineering Director 5.6 mm CM 4.8 mm 36% Nicolaides Extremities / Bony Struc FL / HC 0.20 83% Hadlock Other Structures FHR 153 bpm Anatomy Cranium: normal Lateral ventricles: normal Choroid plexus: normal Midline falx: normal Cavum septi pellucidi: normal Cerebellum: normal Cisterna magna: normal Head / Neck Vermis: Normal but not required for a standard anatomy exam Neck: Normal but not required for a standard anatomy exam Nuchal fold: Normal but not required for a standard anatomy exam Lips: normal Profile: Normal but not required for a standard anatomy exam Nose: Normal but not required for a standard anatomy exam Face Maxilla: Normal but not required for a standard anatomy exam Mandible: Normal but not required for a standard anatomy exam Orbits: Normal but not required for a standard anatomy exam Lens: Normal but not required for a standard anatomy exam 4-chamber view: normal RVOT view: normal LVOT view: normal 3-vessel view: normal 7-pdhgnb-qpuwgpb view: normal Heart / Thorax Situs: situs solitus (normal) Aortic arch view: Normal but not required for a standard anatomy exam SVC: Normal but not required for a standard anatomy exam IVC: Normal but not required for a standard anatomy exam Cardiac axis: normal Rt lung: Normal but not required for a standard anatomy exam Lt lung: Normal but not required for a standard anatomy exam Diaphragm: Normal but not required for a standard anatomy exam Cord insertion: normal Stomach: normal Kidneys: normal Bladder: normal Genitals: normal Abdomen Abdom. wall: normal Cervical spine: normal Thoracic spine: normal Lumbar spine: normal Sacral spine: normal Arms: normal Legs: normal Rt upper arm: normal Rt forearm: normal Rt hand: normal Rt fingers: normal Lt upper arm: normal Lt forearm: normal Lt hand: normal Lt fingers: normal Rt upper leg: normal Rt lower leg: normal Rt foot: normal Lt upper leg: normal Lt lower leg: normal Lt foot: normal sex: male Wants to know sex: yes Maternal Structures Uterus / Cervix Uterus: Visualized Cervix: Visualized Approach: Transabdominal Cervical length 43.3 mm Other: Patient declined transvaginal ultrasound for cervical length. Ovaries / Tubes / Adnexa Rt ovary: Visualized Lt ovary: Visualized Performed By: Kimberly Blanc, REGINALD, RVT Read By: Shayla Wilson M.D. MATERNAL MEDICINE [facility] Radiology Study observation (narrative) [facility] [place] Urine Cultureon 06-11-2024 [facility] Escherichia coli Zanoni Count >100,000 Escherichia coli: REACTION Ampicillin Islt JESSICA >=32 Ampicillin+Sulbac Islt JESSICA 8 S Cefepime Islt JESSICA <=0.12 S cefTRIAXone Islt JESSICA <=0.25 S Ciprofloxacin Islt JESSICA <=0.06 S B-Lactamase Extended Susc Islt NEG Gentamicin Islt JESSICA <=1 S levoFLOXacin Islt JESSICA <=0.12 S Meropenem Islt JESSICA <=0.25 S Nitrofurantoin Islt JESSICA <=16 S Pip+Tazo Islt JESSICA <=4 S TMP SMX Islt JESSICA <=20 S Normal [facility] Comment on above: Performed By: #### M 100.2200 #### [facility] [address] [place], [address] Bilirubin Test strip Ql (U)O rdered By: Kenton Smith on 06-09-2024 Bilirubin Ql (U) Negative Negative [facility] Emergency Department Summary on 06-09-[address] [facility] Medical Records Department [address] [place] [address] Emergency Department Summary 06/09/24 MR#: [id number] Acct: [id number] Name: STACI PRICE Rep #: [id number] : 2000 24 From: Kenton Smith DO PCP: Care Physician,No Primary Status:REG ER Location: ED HPI HPI - Female History of Present Illness Chief Complaint: Vag Bld, Preg Informant: patient Narrative Narrative: Patient is a with 2 spontaneous abortions who is roughly 16 weeks . She states that this evening she took a bath and had created a bubble bath with Dove soap. She states after this she felt vaginal burning and pressure in the lower abdomen. She states she urinated and only produced a small amount. However this caused increased burning and when she wiped there was a small amount of pinkish-red blood. She states that the presence of the blood concern to her and therefore she called EMS to be brought in for evaluation. Patient states that other than the small amount of blood upon wiping there has not been persistent vaginal bleeding. Patient also denies any vaginal discharge or concern for STD. [facility] Medical History Chlamydia infection affecting Acid reflux Asthma Preeclampsia Home Medications ???Medication ???Instructions ???Recorded ???Last Taken ???Type metoclopramide HCl 5 mg tablet 5 mg PO Q6H #20 tabs 04/30/24 Unkn own Rx (Reglan) amoxicillin 500 mg capsule 500 mg PO TID 7 days #21 caps 05/31 Unknown Rx aspirin 81 mg capsule 81 mg PO DAILY 06/09/24 Unknown Hi story phenazopyridine 200 mg tablet 200 mg PO TID 2 days #6 tabs 06/09 Unknown Rx (Pyridium) Allergy/AdvReac Type Severity Reaction Status Date / Time No Known Allergies Allergy Verified 06/09/24 00:33 Family History no significant family his Social History Smoking Status: Former smoker ROS ROS ED Constitutional Constitutional ED: Denies chills or fever(s) Eyes Eyes: Denies blurry vision or change in vision ENT ENT ED: Denies sore throat Cardiovascular Cardiovascular: Denies chest pain Respiratory/Chest Respiratory/Chest: Denies cough or dyspnea Gastrointestinal Gastrointestinal: Denies abdominal pain, diarrhea, nausea or vomiting Genitourinary Genitourinary ED: Reports dysuria and other Details: Positive vaginal bleeding Musculoskeletal Musculoskeletal: Reports other Details: Negative back pain Integumentary Denies rash Neurologic Neurologic: Denies headache(s) Hematologic/Lymphat ic Hematologic/Lymphat ic: Denies easy bleeding or easy bruising EXAM Physical Exam Const Vital Signs: 06/09/24 00:34 06/09/24 01:00 Temperature 98.2 F Temperature Source Oral Pulse Rate 100 98 Respiratory Rate 18 16 Blood Pressure 165/85 H 127/68 H Blood Pressure Mean 111 87 Pulse Ox 96 98 Oxygen Delivery Method Room Air Room Air Positive well nourished and well developed General Appearance ED: well developed; Negative for pallor HEENT HEENT Narrative: Normocephalic atraumatic Eyes PERRL and EOMs intact bilaterally General Eye ED: Negative for scleral icterus Neck supple Neck Narrative: No nuchal rigidity or meningeal signs Resp normal respiratory effort and clear to auscultation bilaterally Cardio regular rate and regular rhythm Rate: other Other Details: Radial and carotid pulses are equal and symmetric GI non-distended GI Narrative: Abdomen is gravid with fundus consistent with reported gestational age. There is mild pain with palpation in the suprapubic region. No voluntary guarding or rigidity. Auscultation: normoactive bowel sounds Palpation: soft Narrative: Patient deferred Back/Spine no CVA tenderness Extremity full ROM Extremity Narrative: Trace pitting edema consistent with status Negative Homans' sign bilaterally Neuro oriented x3, CN's II-XII intact bilaterally and no sensory deficits noted Sensorium / Orientation: alert Motor Exam: strength 5/5 throughout Psych Mood Affect: anxious Skin no rashes or lesions noted General Skin Exam: Negative for jaundice or pallor MDM MDM MDM Narrative Medical decision making narrative: Patient arrived to the ER no acute distress. She reported having vaginal burning/dysuria after taking a bubble bath. She states there was mild blood with wiping as well. With concern this could be threatened /spontaneou s miscarriage versus UTI versus allergic urethritis I did elect to place an ultrasound on the patient in the ER and obtain a urine sample. Ultrasound evaluation in ER shows the fetus to be within the uterus with a heartbeat of 150 bpm and spontaneous mo (more content not included)... Normal [facility] Epithelial cells.squamous LM Ql (Urine sed)Ordered By: Kenton Smith on 06-09-2024 Epithelial cells.squamous LM.HPF (Urine sed) [#/Area] 0 /[HPF] 5-10 [facility] Glucose Ql (U)Ordered By: Carrie Smith on 06-09-2024 Urine Glucose (UA) Normal mg/dl Normal [facility] Ketones Test strip Ql (U)Ord ered By: Kenton Smith on 06-09-2024 Ketones Ql (U) Negative Negative [facility] Microscopic analysis of urin e for red blood cells (RBC)Ordered By: Kenton Smith on 06-09-2024 Urine RBC 10-25 SEEN /hpf 0-5 [facility] Mucus LM Ql (Urine sed)Order ed By: Kenton Smith on 06-09-2024 Mucus Ql (Urine sed) 0 SEEN /hpf [facility] Nitrite Test strip Ql (U)Ord ered By: Kenton Smith on 06-09-2024 Nitrite Ql (U) Positive High Negative [facility] Protein Test strip Ql (U)Ord ered By: Kenton Smith on 06-09-2024 Protein Ql (U) 500 mg/dl High Negative [facility] Urinalysis, Completeon 06-09 BACTERIA 3+ /hpf Normal None Seen [facility] Comment on above: Order Comment: MARY LOU CTOR TO SPECIFY Performed By: #### L 400.0001 #### [facility] [address] [place], [address] EPI,SQUAMOUS 0-5 SEEN Normal 5-10 [facility] Comment on above: Order Comment: MARY LOU CTOR TO SPECIFY Performed By: #### L 400.0001 #### [facility] [address] [place], [address] RBC 10-25 SEEN Normal 0-5 [facility] Comment on above: Order Comment: MARY LOU CTOR TO SPECIFY Performed By: #### L 400.0001 #### [facility] [address] [place], [address] WBC 25-50 SEEN Normal 0-5 [facility] Comment on above: Order Comment: MARY LOU CTOR TO SPECIFY Performed By: #### L 400.0001 #### [facility] [address] [place], [address] Mucus Ql (Urine sed) 0 SEEN Normal [facility] Comment on above: Order Comment: MARY LOU CTOR TO SPECIFY Performed By: #### L 400.0001 #### [facility] [address] [place], [address] Urine blood detectionOrdered By: Kenton Smith on 06-09-2024 Urine Occult Blood 250 /ul High Negative [facility] Urine clarityOrdered By: Nico Smith on 06-09-2024 Clarity (U) Cloudy Clear [facility] Urine color determinationOrd ered By: Kenton Smith on 06-09-2024 Color (U) Yellow Yellow [facility] Urine leukocyte esterase det ection by dipstickOrdered By: Kenton Smith on 06-09-2024 Leukocyte esterase Test strip Ql (U) 500 /ul High Negative [facility] Urine pHOrdered By: Kenton lujan on 06-09-2024 pH (U) 6.5 [pH] 5.0 - 8.0 [facility] Urine sediment bacteria coun t by microscopy (number/high power field)Ordered By: Kenton Smith on 06-09-2024 Bacteria LM.HPF (Urine sed) [#/Area] 3 /[HPF] None Seen [facility] Urine specific gravity measu rementOrdered By: Kenton Smith on 06-09-2024 Specific gravity (U) [Rel density] 1.015 1.002-1.030 [facility] Urobilinogen Ql (U)Ordered B y: Kenton Smith on 06-09-2024 Urine Urobilinogen Normal mg/dl Normal [facility] White blood cell countOrdere d By: Kenton Smith on 06-09-2024 Urine WBC 25-50 SEEN /hpf 0-5 [facility] Examination level ultrasound on 05-17-2024 Indication First trimester anatomic survey Impression REMOTE READ The patient is referred for a first trimester anatomy scan including nuchal translucency measurement as clinically indicated. - Single, live, intrauterine . - [place] rump length measurement is consistent with the established gestational age. - A qualitative screen of the nuchal translucency and other anatomic structures was unremarkable on first trimester anatomic assessment. - Not all structural malformations can be detected by ultrasound examination. Maternal Structures: Right Ovary: Size 35 mm x 22 mm x 19 mm Left Ovary: Size 34 mm x 32 mm x 19 mm Recommendations Return for anatomy ultrasound Maternal Assessment Height 165 cm Height (ft) 5 ft Height (in) 5 in Maternal assessment other: 7 Para 4 Method Transabdominal ultrasound examination Rosario . Number of fetuses: 1 Dating LMP on: 02/17/2024 GA by LMP 12 w + 6 d KIARA by LMP: 11/23/2024 GA by prior assessment 12 w + 6 d KIARA by prior assessment: 11/23/2024 Ultrasound examination on: 05/17/2024 GA by U/S based upon: CRL GA by U/S 13 w + 1 d KIARA by U/S: 11/21/2024 Assigned: based on stated KIARA, selected on 05/17/2024 Assigned GA 12 w + 6 d Assigned KIARA: 11/23/2024 General Evaluation Cardiac activity present Placenta: posterior Cord vessels: 3 vessel cord Amniotic fluid: normal amount Biometry Standard FHR 163 bpm CRL 68.8 mm 13w 1d 62% Hadlock First Trimester Anatomy Calvarium: normal Falx cerebri: normal Choroid plexus: normal Profile: normal Nasal bone: normal Retronasal triangle: normal Maxilla: normal Mandible: normal Nuchal translucency: Unremarkable Situs: normal Cardiac position: normal Cardiac axis: normal 4-chamber view: visualized 4-chamber view with color: visualized 5-fyxwej-dwthkyi view: normal Abdominal cord insertion: normal Stomach: normal Kidneys: normal Bladder: normal Color doppler of perivesical umbilical arteries: normal Vertebral alignment: normal Arms: normal Hands: normal Legs: normal Feet: normal Maternal Structures Uterus / Cervix Uterus: Visualized Uterus length 140 mm Uterus width 103 mm Uterus height 82 mm Uterus Vol 615.5 cm Ovaries / Tubes / Adnexa Rt ovary: Visualized Rt ovary D1 35 mm Rt ovary D2 22 mm Rt ovary D3 19 mm Rt ovary Vol 7.8 cm Lt ovary: Visualized Lt ovary D1 34 mm Lt ovary D2 32 mm Lt ovary D3 19 mm Lt ovary Vol 10.6 cm Performed By: Kimberly Blanc RDMS, RVT Read By: Shayla Wilson M.D. MATERNAL MEDICINE [facility] Radiology Study observation (narrative) Bob knox [facility] 05-16-2024 JOHN Telephone (OBGYWM) ---- DEEELEUTERIOH ([id number]) 2 F Date Time Provider Department 05/16/24 ELVIRA GUILLORY During your visit today, we recorded the following information about you: Rosalia Liriano 05/16/2024 1:22 PM Signed Patient cancelled nuchal US and OB appointments scheduled for today 05/16/24. Patient will be 13 weeks as of tomorrow, 05/07/24. [facility] unable to find availability for nuchal US within the appropriate time frame. Please contact patient to advise on plan of care. Amira Steward 05/16/2024 1:57 PM Signed Patient transferred over to PSS to help coordinate a different location within the Clinic for appropriate time frame. She expressed frustration with the options given, states they are too far for her due to not having a vehicle. She states she is going to look for a new OB. Amira Steward May 16, 2024 1:56 PM Amira Steward 05/16/2024 2:11 PM Signed Patient called back in and scheduled her ultrasound for tomorrow in [place], she was able to arrange transportation. Amira Steward May 16, 2024 2:10 PM Allergies As of Date: 05/16/2024 (No Known Allergies) Date Reviewed: 04/11/2024 Reviewed by: Curt Mauricio MA - Fully Assessed Reason for Visit: Appointment [186] Cmt: Nuchal US Prescriptions as of 09/28/2024 - Breast Pump Use as directed - aspirin, enteric coated (ASPIRIN, ENTERIC COATED) 81 mg EC tablet Take 2 tablets by mouth once daily. - docusate sodium (COLACE) 100 mg capsule Take 1 capsule by mouth two times a day. - ferrous sulfate 325 mg (65 mg iron) tablet Take 1 tablet by mouth every other day. - Bxkxnfpp-Kb-Grk-Fe- FA tab Take 1 tablet by mouth once daily. With DHA and folic acid as covered by insurance. - albuterol HFA (PROAIR HFA) 90 mcg/actuation inhaler Inhale 2 Puffs as instructed every 4 hours as needed. Problem List As Of Date 05/16/2024 Noted Resolved Supervision of high risk in second tr*07/29/2018 with care elsewhere, antepar*07/29/2018 10/24/2021 Genital warts complicating [O98.319, *07/30/2018 Late care affecting , antepar*08/11/2018 04/11/2024 Nausea and vomiting in [O21.9] 06/07/2020 04/11/2024 UTI (urinary tract infection) in , ant*06/07/2020 10/24/2021 History of nicotine vaping [Z87.891] 06/07/2020 04/11/2024 Patient request for diagnostic testing [Z01.89] 10/21/2021 04/11/2024 Hx of pre-eclampsia, prior , currently* Bacteriuria [R82.71] 11/01/2021 04/11/2024 Short interval between pregnancies affecting pr*01/21/2023 History of marijuana use [F12.91] 01/21/2023 04/11/2024 Candidiasis of vagina during [O98.819*01/28/2023 04/11/2024 Chlamydia trachomatis infection in mother durin*02/11/2023 04/11/2024 Abnormal chromosomal and genetic finding on ant*03/11/2023 History of shoulder dystocia in prior * History of spontaneous [Z87.59] 04/11/2024 Encounter Status:Closed by ROSALIA LIRIANO on 09/28/24 Normal [facility] CBC W Auto Differential pane l (Bld)on 05-09-2024 Basophils (Bld) [#/Vol] 0.03 10*3/uL Normal <0.11 [facility] Comment on above: Order Comment: Speci men Type: BLOOD SPECIMENOrdering Facility: [facility] Address: [address] [place] [address] Performed By: #### 5 7021-8 ####[facility] ABDELRAHMAN ANTONIO [id number] [place] [address] [place] Basophils/100 WBC (Bld) 0.4 % Normal C [facility] Comment on above: Order Comment: Speci men Type: BLOOD SPECIMENOrdering Facility: [facility] Address: [address] [place] [address] Performed By: #### 5 7021-8 ####[facility] [id number] [place] [address] [place] Differential cell count method Nom (Bld) Auto Normal [facility] Comment on above: Order Comment: Speci men Type: BLOOD SPECIMENOrdering Facility: [facility] Address: [address] [place] [address] Performed By: #### 5 7021-8 ####[facility]OSPITALLI [id number] [place] [address] [place] Eosinophils (Bld) [#/Vol] 0.31 10*3/uL Normal <0.46 [facility] Comment on above: Order Comment: Speci men Type: BLOOD SPECIMENOrdering Facility: [facility] Address: [address] [place] [address] Performed By: #### 5 7021-8 ####[facility] [id number] [place] [address] [place] Eosinophils/100 WBC (Bld) 3.7 % Normal [facility] Comment on above: Order Comment: Speci men Type: BLOOD SPECIMENOrdering Facility: [facility] Address: [address] [place] [address] Performed By: #### 5 7021-8 ####[facility] [id number] [place] [address] [place] Erythrocyte distribution width (RBC) [Ratio] 14.5 % Normal 11.5-15.0 [facility] Comment on above: Order Comment: Speci men Type: BLOOD SPECIMENOrdering Facility: [facility] Address: [address] [place] [address] Performed By: #### 5 7021-8 ####[facility] JENNIFERGA [id number] [place] [address] [place] Hematocrit (Bld) [Volume fraction] 36.9 % Normal 36.0-46.0 [facility] Comment on above: Order Comment: Speci men Type: BLOOD SPECIMENOrdering Facility: [facility] Address: [address] [place] [address] Performed By: #### 5 7021-8 ####[facility] [id number] [place] [address] [place] Hemoglobin (Bld) [Mass/Vol] 12.6 g/dL Normal 11.5-15.5 [facility] Comment on above: Order Comment: Speci men Type: BLOOD SPECIMENOrdering Facility: [facility] Address: [address] [place] [address] Performed By: #### 5 7021-8 ####[facility] [id number] [place] [address] [place] Immature granulocytes (Bld) [#/Vol] 10*3/uL Normal <0.10 [facility] Comment on above: Order Comment: Speci men Type: BLOOD SPECIMENOrdering Facility: [facility] Address: [address] [place] [address] Performed By: #### 5 7021-8 ####[facility]ITALNCLIA [id number] [place] [address] [place] Immature granulocytes/100 WBC (Bld) 0.1 % Normal [facility] Comment on above: Order Comment: Speci men Type: BLOOD SPECIMENOrdering Facility: [facility] Address: [address] [place] [address] Performed By: #### 5 7021-8 ####[facility] MILLWNCLIA [id number] [place] [address] [place] Lymphocytes (Bld) [#/Vol] 1.96 10*3/uL Normal 1.00-4.00 [facility] Comment on above: Order Comment: Speci men Type: BLOOD SPECIMENOrdering Facility: [facility] Address: [address] [place] [address] Performed By: #### 5 7021-8 ####[facility] [id number] [place] [address] [place] Lymphocytes/100 WBC (Bld) 23.4 % Normal [facility] Comment on above: Order Comment: Speci men Type: BLOOD SPECIMENOrdering Facility: [facility] Address: [address] [place] [address] Performed By: #### 5 7021-8 ####[facility] [place] [facility] [id number] [place] [address] [place] MCH (RBC) [Entitic mass] 28.1 pg Normal 26.0-34.0 [facility] Comment on above: Order Comment: Speci men Type: BLOOD SPECIMENOrdering Facility: [facility] Address: [address] [place] [address] Performed By: #### 5 7021-8 ####[facility]ALL[facility] [id number] [place] [address] [place] MCHC (RBC) [Mass/Vol] 34.1 g/dL Normal 30.5-36.[address] [facility] Comment on above: Order Comment: Speci men Type: BLOOD SPECIMENOrdering Facility: [facility] Address: [address] [place] [address] Performed By: #### 5 7021-8 ####[facility] HOSPITALNCLI [id number] [place] [address] [place] MCV (RBC) [Entitic vol] 82.4 fL Normal 80.0-100.0 C [facility] Comment on above: Order Comment: Speci men Type: BLOOD SPECIMENOrdering Facility: [facility] Address: [address] [place] [address] Performed By: #### 5 7021-8 ####[facility] [id number] [place] [address] [place] Monocytes (Bld) [#/Vol] 0.37 10*3/uL Normal <0.87 [facility] Comment on above: Order Comment: Speci men Type: BLOOD SPECIMENOrdering Facility: [facility] Address: [address] [place] [address] Performed By: #### 5 7021-8 ####[facility] [id number] [address] [place] Monocytes/100 WBC (Bld) 4.4 % Normal C [facility] Comment on above: Order Comment: Speci men Type: BLOOD SPECIMENOrdering Facility: [facility] Address: [address] [place] [address] Performed By: #### 5 7021-8 ####[facility] [id number] [place] [address] [place] Neutrophils (Bld) [#/Vol] 5.70 10*3/uL Normal 1.45-7.50 [facility] Comment on above: Order Comment: Speci men Type: BLOOD SPECIMENOrdering Facility: [facility] Address: [address] [place] [address] Performed By: #### 5 7021-8 ####[facility] [id number] [place] [address] [place] Neutrophils/100 WBC (Bld) 68.0 % Normal [facility] Comment on above: Order Comment: Speci men Type: BLOOD SPECIMENOrdering Facility: [facility] Address: [address] [place] [address] Performed By: #### 5 7021-8 ####[facility] JENNIFERTOPEKASANTHOSH [id number] [place] [address] [place] Nucleated RBC (Bld) [#/Vol] 10*3/uL Normal <0.01 [facility] Comment on above: Order Comment: Speci men Type: BLOOD SPECIMENOrdering Facility: [facility] Address: [address] [place] [address] Performed By: #### 5 7021-8 ####[facility] [id number] [place] [address] [place] Nucleated RBC/100 WBC (Bld) [Ratio] 0.0 /100 WBC Normal [facility] Comment on above: Order Comment: Speci men Type: BLOOD SPECIMENOrdering Facility: [facility] Address: [address] [place] [address] Performed By: #### 5 7021-8 ####[facility] [id number] [place] [address] [place] Platelet mean volume (Bld) [Entitic vol] 10.9 fL Normal 9.0-12.7 [facility] Comment on above: Order Comment: Speci men Type: BLOOD SPECIMENOrdering Facility: [facility] Address: [address] [place] [address] Performed By: #### 5 7021-8 ####[facility] [id number] [place] [address] [place] Platelets (Bld) [#/Vol] 251 10*3/uL Normal 150-400 [facility] Comment on above: Order Comment: Speci men Type: BLOOD SPECIMENOrdering Facility: [facility] Address: [address] [place] [address] Performed By: #### 5 7021-8 ####[facility]ATOWNCLIA [id number] [place], [place] RBC (Bld) [#/Vol] 4.48 10*6/uL Normal 3.90-5.20 [facility] Comment on above: Order Comment: Speci men Type: BLOOD SPECIMENOrdering Facility: [facility] Address: [address] [place] [address] Performed By: #### 5 7021-8 ####[facility]ITALNCLIA [id number] [place] [address] [place] WBC (Bld) [#/Vol] 8.38 10*3/uL Normal 3.70-11.00 [facility] Comment on above: Order Comment: Speci men Type: BLOOD SPECIMENOrdering Facility: [facility] Address: [address] [place] [address] Performed By: #### 5 7021-8 ####[facility]ITALNCLIA [id number] [address] [place] CNPJeane 05-09-2024 CNPN Telephone (OBGYWM) ---- STACI PRICE ([phone]) 2 F Date Time Provider Department 05/09/24 ELVIRA GUILLORY During your visit today, we recorded the following information about you: Kylee Huber RN 05/09/2024 8:22 AM Signed 11w5d Patient has US and OB visit on 05/16. Would like to do the [id number], but have it done this week and not wait until the . Will need an order. Please advise. RATNA Jerome Trisha, RN 05/09/2024 12:49 PM Signed Patient notified. Concepcion Laird RN Allergies As of Date: 05/09/2024 (No Known Allergies) Date Reviewed: 04/11/2024 Reviewed by: Curt Mauricio MA - Fully Assessed Reason for Visit: Question (OB Question) [1552] Primary Visit Diagnosis:Encounter for screening of mother [Z36.9] Other Visit Diagnosis:Supervisi on of high risk in first trimester [O09.91] Order(s):[id number] PLUS [SQMAT21] Order #: [id number] FUTURE Prescriptions as of 05/09/2024 - ondansetron (ZOFRAN) 4 mg tablet Take 1 tablet by mouth every 8 hours as needed for nausea/vomiting. - aspirin, enteric coated (ECOTRIN LOW STRENGTH) 81 mg EC tablet Take 1 tablet by mouth once daily. - aspirin, enteric coated (ASPIRIN, ENTERIC COATED) 81 mg EC tablet Take 2 tablets by mouth once daily. - Xwqanaoz-Fd-Mhw-Fe- FA tab Take 1 tablet by mouth once daily. With DHA and folic acid as covered by insurance. - albuterol HFA (PROAIR HFA) 90 mcg/actuation inhaler Inhale 2 Puffs as instructed every 4 hours as needed. - PNV no.829-PA-tk1-dha-e pa-fish ( GUMMIES) 400 mcg-35 mg- 25 mg-5 mg chew Take 1 tablet by mouth once daily. Problem List As Of Date 05/09/2024 Noted Resolved Supervision of high risk in second tr*07/29/2018 with care elsewhere, antepar*07/29/2018 10/24/2021 Genital warts complicating [O98.319, *07/30/2018 Late care affecting , antepar*08/11/2018 04/11/2024 Nausea and vomiting in [O21.9] 06/07/2020 04/11/2024 UTI (urinary tract infection) in , ant*06/07/2020 10/24/2021 History of nicotine vaping [Z87.891] 06/07/2020 04/11/2024 Patient request for diagnostic testing [Z01.89] 10/21/2021 04/11/2024 Hx of pre-eclampsia, prior , currently* Bacteriuria [R82.71] 11/01/2021 04/11/2024 Short interval between pregnancies affecting pr*01/21/2023 History of marijuana use [F12.91] 01/21/2023 04/11/2024 Candidiasis of vagina during [O98.819*01/28/2023 04/11/2024 Chlamydia trachomatis infection in mother durin*02/11/2023 04/11/2024 Abnormal chromosomal and genetic finding on ant*03/11/2023 History of shoulder dystocia in prior * History of spontaneous [Z87.59] 04/11/2024 Encounter Status:Closed by NANCY LAMBERT on 05/09/24 Normal [facility] Comprehensive metabolic 2000 panelon 05-09-2024 Albumin [Mass/Vol] 4.3 g/dL Normal 3.9-4.9 [facility] Comment on above: Order Comment: Speci men Type: BLOOD SPECIMENOrdering Facility: [facility] Address: [address] [place] [address] Performed By: #### 2 4323-8, 3084-1 ####[facility] LABORATORYCLIA [id number] [place] [address] [place] ALP [Catalytic activity/Vol] 74 U/L Normal 34-123 [facility] Comment on above: Order Comment: Speci men Type: BLOOD SPECIMENOrdering Facility: [facility] Address: [address] [place] [address] Performed By: #### 2 4323-8, 3084-1 ####[facility] LABORATORYCLIA [id number] [place] [address] [place] ALT With P-5'-P [Catalytic activity/Vol] 27 U/L Normal 7-38 [facility] Comment on above: Order Comment: Speci men Type: BLOOD SPECIMENOrdering Facility: [facility] Address: [address] [place] [address] Performed By: #### 2 4323-8, 3083- ####[facility]ORATORYCLIA [id number] [place] [address] [place] Anion gap [Moles/Vol] 12 mmol/L Normal 8-[address] [facility] Comment on above: Order Comment: Speci men Type: BLOOD SPECIMENOrdering Facility: [facility] Address: [address] [place] [address] Performed By: #### 2 4323-8, 3083- ####[facility]ATORYCLIA [id number] [place] [address] [place] AST With P-5'-P [Catalytic activity/Vol] 23 U/L Normal 13-35 [facility] Comment on above: Order Comment: Speci men Type: BLOOD SPECIMENOrdering Facility: [facility] Address: [address] [place] [address] Performed By: #### 2 4323-8, 3083-03 ####[facility] LABORATORYCLIA [id number] [place] [address] [place] Bilirubin [Mass/Vol] 0.2 mg/dL Normal 0.2-1.3 [facility] Comment on above: Order Comment: Speci men Type: BLOOD SPECIMENOrdering Facility: [facility] Address: [address] [place] [address] Performed By: #### 2 4323-8, 3083-03 ####[facility]ATORYCLIA [id number] [place] [address] [place] Calcium [Mass/Vol] 9.9 mg/dL Normal 8.5-10.2 [facility] Comment on above: Order Comment: Speci men Type: BLOOD SPECIMENOrdering Facility: [facility] Address: [address] [place] [address] Performed By: #### 2 4323-8, 3083- ####[facility]ORATORYCLIA [id number] [place] [address] [place] Chloride [Moles/Vol] 102 mmol/L Normal 98-107 [facility] Comment on above: Order Comment: Speci men Type: BLOOD SPECIMENOrdering Facility: [facility] Address: [address] [place] [address] Performed By: #### 2 4323-8, 3083-03 ####[facility] SupplyURIEL [facility] LABORATORYCLIA [id number] [address] [place] CO2 [Moles/Vol] 21 mmol/L Low 22-30 [facility] Comment on above: Order Comment: Speci men Type: BLOOD SPECIMENOrdering Facility: [facility] Address: [address] [place] [address] Performed By: #### 2 4323-8, 3083-03 ####[facility]PITALCLIA [id number] [address] Creatinine [Mass/Vol] 0.65 mg/dL Normal 0.58-0.[address] [facility] Comment on above: Order Comment: Speci men Type: BLOOD SPECIMENOrdering Facility: [facility] Address: [address] [place] [address] Performed By: #### 2 4323-8, 3083-03 ####[facility] SupplyBECKLEY [facility] LABORATORYCLIA [id number] [address] Creatinine and Glomerular filtration rate.predicted panel (S/P/Bld) 127 mL/min/1.73m??? Normal >=60 [facility] Comment on above: Order Comment: Speci men Type: BLOOD SPECIMENOrdering Facility: [facility] Address: [address] [place] [address] Result Comment: Destiney mated Glomerular Filtration Rate (eGFR) is calculated using the 2020 CKD-EPI creatinine equation. This equation utilizes serum creatinine, sex, and age as parameters. The creatinine assay has traceable calibration to isotope dilution-mass spectrometry. Refer to KDIGO guidelines for clinical interpretation. In patients with unstable renal function, e.g. those with acute kidney injury, the eGFR may not accurately reflect actual GFR. Performed By: #### 2 4323-8, 3083-03 ####[facility] SupplyBECKLEY [facility] LABORATORYCLIA [id number] [place] [address] [place] Glucose [Mass/Vol] 96 mg/dL Normal 74-99 [facility] Comment on above: Order Comment: Speci men Type: BLOOD SPECIMENOrdering Facility: [facility] Address: [address] [place], [place] [address] Result Comment: The [place] Diabetes Association (ADA) provides guidance for cutoff values for fasting glucose and random glucose. The ADA defines fasting as no caloric intake for at least 8 hours. Fasting plasma glucose results between 100 to 125 mg/dL indicate increased risk for diabetes (prediabetes). Fasting plasma glucose results greater than or equal to 126 mg/dL meet the criteria for diagnosis of diabetes. In the absence of unequivocal hyperglycemia, results should be confirmed by repeat testing. In a patient with classic symptoms of hyperglycemia or hyperglycemic crisis, random plasma glucose results greater than or equal to 200 mg/dL meet the criteria for diagnosis of diabetes. Reference: Standards of Medical Care in Diabetes 2016, [place] [employer] Association. Diabetes Care. 2016.39(Suppl 1). Performed By: #### 2 4323-8, 3083- ####[facility] SupplyBECKLEY [facility] LABORATORYCLIA [id number] [place] [id number] [place] Potassium [Moles/Vol] 4.0 mmol/L Normal 3.7-5.[address] [facility] Comment on above: Order Comment: Max johnson Type: BLOOD SPECIMENOrdering Facility: [facility] Address: [address] [place] [address] Performed By: #### 2 4323-8, 3083- ####[facility] SupplyBECKLEY [facility] LABORATORYCLIA [id number] [place] [id number] [place] Protein [Mass/Vol] 8.1 g/dL High 6.3-8.0 [facility] Comment on above: Order Comment: Max men Type: BLOOD SPECIMENOrdering Facility: [facility] Address: [address] [place], [place] [address] Performed By: #### 2 4323-8, 3083- ####[facility] LABORATORYCLIA [id number] [place] [id number] [place] Sodium [Moles/Vol] 135 mmol/L Low 136-144 [facility] Comment on above: Order Comment: Speci men Type: BLOOD SPECIMENOrdering Facility: [facility] Address: [address] [place] [address] Performed By: #### 2 4323-8, 308-1 ####[facility] LABORATORYCLIA [id number] [place] [address] [place] Urea nitrogen [Mass/Vol] 8 mg/dL Normal 7-21 [facility] Comment on above: Order Comment: Speci men Type: BLOOD SPECIMENOrdering Facility: [facility] Address: [address] [place] [address] Performed By: #### 2 4323-8, 308-1 ####[facility] LABORATORYCLIA [id number] [place] [address] [place] HBV surface Ag Ser Qlon 03- HBV surface Ag Ql (S) Negative Normal Negative [facility] Comment on above: Order Comment: Speci men Type: SWAB [facility] Address: [address] [place] [address] Performed By: #### 3 6902-5, BVAMP #### [facility] CLIA [id number] [address] [place] [address] [place] HCV Ab Ser Qlon 05-09-2024 HCV Ab Ql (S) Negative Normal Negative [facility] Comment on above: Order Comment: Speci men Type: SWAB [facility] Address: [address] [place] [address] Result Comment: The result suggests no evidence of active infection with Hepatitis C virus. Should recent infection be suspected, repeat testing may be considered 4-6 weeks after this draw. Performed By: #### 3 6902-5, BVAMP #### [facility] CLIA [id number] [address] [place] [address] [place] HIV 1+2 Ab IA Qlon HIV 1 and 2 Ab IA.rapid Nom (S/P/Bld) Normal [facility] Comment on above: Order Comment: Speci men Type: SWAB [facility] Address: [address] [place] [address] Result Comment: Test not indicated. Performed By: #### 3 6902-5, BVAMP #### [facility] CLIA [id number] [address] [place] [address] [place] HIV 1+2 Ab+HIV1 p24 Ag IA Ql Non-Reactive Normal Nonreactive [facility] Comment on above: Order Comment: Speci men Type: SWAB [facility] Address: [address] [place] [address] Performed By: #### 3 6902-5, BVAMP #### [facility] CLIA [id number] [address] [place] [address] [place] HIV immunoassay testing algorithm interpretation (S/P/Bld) [Interp] Normal [facility] Comment on above: Order Comment: Speci men Type: SWAB [facility] Address: [address] [place] [address] Result Comment: No e vidence of HIV-1 or HIV-2 infection. Should recent infection be suspected, repeat testing may be considered 2-3 weeks after this draw. [place] Rev. Code 3701.243(E): This information has been disclosed to you from confidential records protected from disclosure by state law. ???You shall make no further disclosure of this information without the specific, written, and informed release of the individual to whom it pertains or as otherwise permitted by state law. A general authorization for the release of medical or other information is not sufficient for the purpose of the release of HIV test results or diagnoses. Performed By: #### 3 6902-5, BVAMP #### [facility] CLIA [id number] [address] [place] [address] [place] HbA1c (Bld)on 05-09-2024 Average glucose Estimated from glycated hemoglobin (Bld) [Mass/Vol] 97 mg/dL Normal [facility] Comment on above: Order Comment: Speci men Type: SWAB [facility] Address: [address] [place] [address] Result Comment: eAG: (Estimated average glucose) is a calculated value from HgbA1c and is health and safety representative of the average blood glucose level in the last 2-3 month period. Performed By: #### 3 6902-5, BVAMP #### [facility] CLIA [id number] [address] [place] [address] [place] OF [place] HbA1c (Bld) [Mass fraction] 5.0 % Normal 4.3-5.6 [facility] Comment on above: Order Comment: Speci men Type: SWAB Ordering Facility: [facility] Address: [address] [place] [address] Result Comment: Amer [place] Diabetes Association guidelines indicate that patients with HgbA1c in the range 5.7-6.4% are at increased risk for development of diabetes, and intervention by lifestyle modification may be beneficial. HgbA1c greater or equal to 6.5% is considered diagnostic of diabetes. Performed By: #### 3 6902-5, BVAMP #### [facility] CLIA [id number] [address] [place] [address] [place] [id number] PLUSon 05-09-2024 Cell-free DNA./Cell-free DNA.total Dosage of chromosome-specific cfDNA (cfDNA) [Molar fraction] 19% Normal [facility] Comment on above: Order Comment: Speci men Type: SWAB Ordering Facility: [facility] Address: [address] [place] [address] Performed By: #### 3 6902-5, BVAMP #### [facility] CLIA [id number] [address] [place] [address] [place] Chr 13+18+21+X+Y aneuploidy Dosage of chromosome-specific cfDNA Ql (cfDNA) Negative Normal [facility] Comment on above: Order Comment: Speci men Type: SWAB Ordering Facility: [facility] Address: [address] [place] [address] Performed By: #### 3 6902-5, BVAMP #### [facility] CLIA [id number] [address] [place] [address] [place] Chr 21 trisomy Dosage of chromosome-specific cfDNA Ql (cfDNA) Negative Normal [facility] Comment on above: Order Comment: Speci men Type: SWAB Ordering Facility: [facility] Address: [address] [place] [address] Performed By: #### 3 6902-5, BVAMP #### [facility] CLIA [id number] [address] [place] [address] [place] Chr X and Y aneuploidy risk Sequencing Ql (cfDNA) [Interp] Not detected Normal [facility] Comment on above: Order Comment: Speci men Type: SWAB Ordering Facility: [facility] Address: [address] [place] [address] Result Comment: Not Detected Not Detected Performed By: #### 3 6902-5, BVAMP #### [facility] CLIA [id number] [address] [place] [address] [place] Citation Gorge (Reference lab test) Comment Normal [facility] Comment on above: Order Comment: Speci men Type: SWAB Ordering Facility: [facility] Address: [address] [place] [address] Result Comment: 1. P shira SHERMAN, et al. Aliza Med. 2012;14(3):296-305. 2. Lesli TELLO et al. Prenat Diag. 2013;33(6):591-597. 3. Rambo C, et al. Clin Chem. 2015 Apr;61(4):608-616. 4. Laurence SHERMAN, et al. Aliza Med. 2011;13(11):913-920. 5. ACOG/SM[facility] Practice Bulletin No. 226, Dec 2019. Performed By: #### 3 6902-5, BVAMP #### [facility] CLIA [id number] [address] [place] [address] [place] Gestational age Estimated from conception date Rosario Normal [facility] Comment on above: Order Comment: Speci men Type: SWAB Ordering Facility: [facility] Address: [address] [place] [address] Performed By: #### 3 6902-5, BVAMP #### [facility] CLIA [id number] [address] [place] [address] OF [place] GESTATIONALAGE AGE > OR = 9W Yes Normal [facility] Comment on above: Order Comment: Speci men Type: SWAB Ordering Facility: [facility] Address: [address] [place] [address] Performed By: #### 3 6902-5, BVAMP #### [facility] CLIA [id number] [address] [place] [address] [place] Laboratory comment Gorge (Report) Comment Normal [facility] Comment on above: Order Comment: Speci men Type: SWAB Ordering Facility: [facility] Address: [address] [place] [address] Result Comment: The MaterniT(R) 21 PLUS laboratory-developed test (LDT) analyzes circulating cell-free DNA from a maternal blood sample. This test is used for screening purposes and not diagnostic. Clinical correlation is recommended. Validation data on twin pregnancies is limited and the ability of this test to detect aneuploidy in higher multiple gestations has not yet been validated. Performed By: #### 3 6902-5, BVAMP #### [facility] CLIA [id number] [address] [place] [address] wellness director name Nom (Provider) Comment Normal [facility] Comment on above: Order Comment: Speci men Type: SWAB Ordering Facility: [facility] Address: [address] [place] [address] Result Comment: This specimen showed an expected representation of chromosome 21, 18 and 13 material. Clinical correlation is suggested. Comment Dusty Arias MD, PhD, Director, Priori Data Performed By: #### 3 6902-5, BVAMP #### [facility] CLIA [id number] [address] [facility] [place] [address] [place] LIMITATIONS OF THE TEST Comment Normal C [facility] Comment on above: Order Comment: Speci men Type: SWAB Ordering Facility: [facility] Address: [address] [place] [address] Result Comment: Moose karimi the results of these tests are highly reliable, discordant results, including inaccurate sex prediction, may occur due to placental, maternal, or mosaicism or neoplasm; vanishing twin; prior maternal organ transplant; or other causes. These tests are screening tests and not diagnostic; they do not replace the accuracy and precision of diagnosis with CVS or amniocentesis. A patient with a positive test result should be referred for genetic counseling and offered invasive diagnosis for confirmation of test results.[5] The results of this testing, including the benefits and limitations, should be discussed with a qualified healthcare provider. management decisions, including termination of the , should not be based on the results of these tests alone. The healthcare provider is responsible for the use of this information in the management of their patient. Sex chromosomal aneuploidies are not reportable for known multiple gestations. A negative result does not ensure an unaffected nor does it exclude the possibility of other chromosomal abnormalities or defects which are not a part of these tests. An uninformative result may be reported, the causes of which may include, but are not limited to, insufficient sequencing coverage, noise or artifacts in the region, amplification or sequencing bias, or insufficient fraction. These tests are not intended to identify pregnancies at risk for neural tube defects or ventral wall defects. Testing for whole chromosome abnormalities (including sex chromosomes) and for subchromosomal abnormalities could lead to the potential discovery of both and maternal genomic abnormalities that could have major, minor, or no, clinical significance. Evaluating the significance of a positive or a non-reportable result may involve both invasive testing and additional studies on the mother. Such investigations may lead to a diagnosis of maternal chromosomal or subchromosomal abnormalities, which on occasion may be associated with benign or malignant maternal neoplasms. These tests may not accurately identify triploidy, balanced rearrangements, or the precise location of subchromosomal duplications or deletions; these may be detected by diagnosis with CVS or amniocentesis. The ability to report results may be impacted by maternal BMI, maternal weight, maternal systemic lupus erythematosus (SLE) and/or by certain pharmaceutical agents such as low molecular weight heparin (for example: Lovenox(R), Xaparin(R), Clexane(R) and Fragmin(R)). Performed By: #### 3 6902-5, BVAMP #### [facility] CLIA [id number] [address] [place] [address] Monosomy X risk Dosage of chromosome-specific cfDNA Ql (Plasma cell-free+WBC DNA) [Interp] Not detected Normal [facility] Comment on above: Order Comment: Specnery johnson Type: SWAB Ordering Facility: [facility] Address: [address] [place] [address] Performed By: #### 3 6902-5, BVAMP #### [facility] CLIA [id number] [address] [place] [address] NEGATIVE PREDICTIVE VALUE Note Normal [facility] Comment on above: Order Comment: Max johnson Type: SWAB Ordering Facility: [facility] Address: [address] [place] [address] Result Comment: The Negative Predictive Value (NPV) for trisomy 21, 18, and 13 is greater than 99%. The NPV for SCA and ESS cannot be calculated as SCA and ESS are only reported when an abnormality is detected. Performed By: #### 3 6902-5, BVAMP #### [facility] CLIA [id number] [address] [place] [address] [place] [facility] PERFORMANCE CHARACTERISTICS Note Normal [facility] Comment on above: Order Comment: Max johnson Type: SWAB Ordering Facility: [facility] Address: [address] [place] [address] Result Comment: ! Sex ! Accuracy: 99.4% ! ! ! ! Region (associated syndrome) ! Est. Sens# ! Est. Spec ! ! ! ! Trisomy 21 (Down Syndrome) ! 99.1% ! 99.9% ! ! ! ! Trisomy 18 (Blevins Syndrome) ! >99.9% ! 99.6% ! ! ! ! Trisomy 13 (Patau Syndrome) ! 91.7% ! 99.7% ! ! ! ! Sex Chromosome Aneuploidies## ! 96.2% ! 99.7% ! ! ! * As reported in [facility] database nstd37 [https://www.ncbi.nlm.nih.gov/dbvar/studies/nstd37/ ] # Estimated Sensitivity. Sensitivity estimated across the observed size distribution of each syndrome [per ISCA database nstd37] and across the range of fractions observed in routine clinical NIPT. Actual sensitivity can also be influenced by other factors such as the size of the event, total sequence counts, amplification bias, or sequence bias. ## Rosario gestation only. Performed By: #### 3 6902-5, BVAMP #### [facility] CLIA [id number] [address] [place] [address] [place] POSITIVE PREDICTIVE VALUE N/A Normal [facility] Comment on above: Order Comment: Speci men Type: SWAB Ordering Facility: [facility] Address: [address] [place] [address] Performed By: #### 3 6902-5, BVAMP #### [facility] CLIA [id number] [address] [place] [address] STATES OF [facility] Reference Lab Test Method Comment Normal [facility] Comment on above: Order Comment: Speci men Type: SWAB Ordering Facility: [facility] Address: [address] [place] [address] Result Comment: See Notes Circulating cell-free DNA was purified from the plasma component of maternal blood. The extracted DNA was then converted into a genomic DNA library for aneuploidy analysis of chromosomes 21, 18, and 13 via next generation sequencing.[1] Optional findings based on the test order include sex chromosome aneuploidy (SCA)[2], and enhanced sequencing series (ESS)[3], which will only be reported on as an additional finding when an abnormality is detected. SCA testing includes information on X and Y representation, while ESS testing includes deletions in selected regions (22q, 15q, 11q, 8q, 5p, 4p, 1p) and trisomy of chromosomes 16 and 22. Performed By: #### 3 6902-5, BVAMP #### [facility] CLIA [id number] [address] [place] [address] [place] Service comment (Unsp spec) [Interp] Comment Normal [facility] Comment on above: Order Comment: Speci men Type: SWAB Ordering Facility: [facility] Address: [address] [place] [address] Result Comment: See Notes [employer] is a subsidiary of [employer], using the brand [employer]. This test was developed and its performance characteristics determined by [employer]. It has not been cleared or approved by the Food and Drug Administration. This laboratory is certified under the Clinical Laboratory Improvement Amendments (CLIA) as qualified to perform high complexity clinical laboratory testing and accredited by the [employer] (CAP). If there is future clinical need for adding MaterniT GENOME testing, this specimen will be available until term. [facility] samples will not be retained beyond 60 days. [facility] patients will have to send a new sample for re-sequencing ([facility] Test Code: 770783). Performed By: #### 3 6902-5, BVAMP #### [facility] CLIA [id number] [address] [place] [address] [place] Sex Dosage of chromosome-specific cfDNA Nom (cfDNA) Comment Normal [facility] Comment on above: Order Comment: Speci men Type: SWAB Ordering Facility: [facility] Address: [address] [place] [address] Result Comment: Cons istent with Male Performed By: #### 3 6902-5, BVAMP #### [facility] CLIA [id number] [address] [place] [address] [place] Test performance information Gorge (Unsp spec) Comment Normal [facility] Comment on above: Order Comment: Speci men Type: SWAB Ordering Facility: [facility] Address: [address] [place] [address] Result Comment: The performance characteristics of the MaterniT(R) 21 PLUS laboratory-developed test (LDT) have been determined in a clinical validation study with women at increased risk for chromosomal aneuploidy.[1-4] Performed By: #### 3 6902-5, BVAMP #### [facility] CLIA [id number] [address] [place] [address] [place] Trisomy 13 risk Dosage of chromosome-specific cfDNA Ql (cfDNA) [Interp] Negative Normal [facility] Comment on above: Order Comment: Speci men Type: SWAB Ordering Facility: [facility] Address: [address] [place] [address] Performed By: #### 3 6902-5, BVAMP #### [facility] CLIA [id number] [address] [place], [place] [address] [place] [address] [place] Trisomy 18 risk Dosage of chromosome-specific cfDNA Ql (Plasma cell-free+WBC DNA) [Interp] Negative Normal [facility] Comment on above: Order Comment: Speci men Type: SWAB Ordering Facility: [facility] Address: [address] [place] [address] Performed By: #### 3 6902-5, BVAMP #### [facility] CLIA [id number] [address] [place] [address] [place] Prot/Creat Uron 05-09-2024 Protein/Creatinine (U) [Mass ratio] 0.06 mg/mg Normal <0.15 [facility] Comment on above: Order Comment: Speci men Type: URINE SPECIMEN Ordering Facility: [facility] Address: [address] [place] [address] Result Comment: Adul t Proteinuria Categories: <0.15 mg/mg is considered normal to mildly increased 0.15 - 0.50 mg/mg is considered moderately increased >0.50 mg/mg is considered severely increased KDIGO. (2013). KDIGO 2012 Clinical Practice Guideline for the Evaluation and Management of Chronic Kidney Disease. Official Journal of the International Society of Nephrology, 3(1), 1-150. Performed By: #### 2 890-2 #### [facility] CLIA [id number] [address] [place] [address] [place] Protein/Creatinine (U) [Mass ratio]on 05-09-2024 Creatinine (U) [Mass/Vol] 143.3 mg/dL Normal 42.2-237.9 [facility] Comment on above: Order Comment: Speci men Type: URINE SPECIMEN Ordering Facility: [facility] Address: [address] [place] [address] Performed By: #### 2 890-2 #### [facility] CLIA [id number] [address] [place] [address] [place] Protein (U) [Mass/Vol] 9 mg/dL Normal 0-20 [facility] Comment on above: Order Comment: Speci men Type: URINE SPECIMEN Ordering Facility: [facility] Address: [address] [place] [address] Performed By: #### 2 890-2 #### [facility] CLIA [id number] [address] [place] [id number] [place] RUBELLA IGG ANTIBODYon 05-09 RUBELLA IGG AB, QUAL Positive Normal Positive [facility] Comment on above: Order Comment: Speci men Type: SWAB Ordering Facility: [facility] Address: [address] [place] [address] Result Comment: The result suggests recent or past exposure to Rubella virus or history of Rubella vaccination. Positive result may also be seen due to presence of passively-transferred antibodies. Please correlate with patient's history. Performed By: #### 3 6902-5, BVAMP #### [facility] CLIA [id number] [address] [place] [address] [place] Reagin and Treponema pallidu m IgG and IgM [Interp]on 05-09-2024 T. pallidum IgG+IgM IA Ql (S) Non-Reactive Normal Nonreactive [facility] Comment on above: Order Comment: Speci men Type: SWAB Ordering Facility: [facility] Address: [address] [place] [address] Performed By: #### 3 6902-5, BVAMP #### [facility] CLIA [id number] [address] [place] [address] [place] Reagin+T pallidum IgG+IgM Se rPl-Impon 05-09-2024 Reagin and Treponema pallidum IgG and IgM [Interp] Cannot exclude recent Treponemal infection if specimen collected within 7-10 days after appearance of suspect lesions or 2-3 weeks after an exposure. Clinical correlation is required. Normal [facility] Comment on above: Order Comment: Speci men Type: SWAB Ordering Facility: [facility] Address: [address] [place] [address] Performed By: #### 3 6902-5, BVAMP #### [facility] CLIA [id number] [address] [place] [address] [place] TYPE + SCREEN PRENATALon ABO A Normal [facility] Comment on above: Order Comment: Speci men Type: BLOOD SPECIMENOrdering Facility: [facility] Address: [address] [place] [address] Performed By: #### T SPN ####[facility] [id number] [place] [address] [place] Rh Nom (Bld) Positive Normal [facility] Comment on above: Order Comment: Speci men Type: BLOOD SPECIMENOrdering Facility: [facility] Address: [address] [place] [address] Performed By: #### T SPN ####[facility]IA [id number] [place] [address] [place] TYPE AND SCREEN EXPIRATION 05/12/2024 23:59 Normal [facility] Comment on above: Order Comment: Speci men Type: BLOOD SPECIMENOrdering Facility: [facility] Address: [address] [place] [address] Performed By: #### T SPN ####[facility]IA [id number] [place] [address] [place] Urate SerPl-mCncon Urate [Mass/Vol] 3.1 mg/dL Normal 2.5-6.6 [facility] Comment on above: Order Comment: Speci men Type: BLOOD SPECIMENOrdering Facility: [facility] Address: [address] [place] [address] Performed By: #### 2 4323-8, 3084-1 ####[facility] [id number] [place] [address] [place] Urine Cultureon 05-02-2024 URC Mixed Gram Positive Organisms Zanoni Count 25,000-50,000 MIXC Mixed contaminants. Submit a new specimen if indicated. Normal [facility] Comment on above: Performed By: #### M 100.2200 ####[facility] [id number] [place], [address] Absolute neutrophil countOrd ered By: Maxi Pete on 04-30-2024 Neutrophils (Bld) [#/Vol] 8.3 10*3/uL High 2.0-7.7 [facility] Albumin to globulin ratioOrd ered By: Maxi Pete on 04-30-2024 Albumin/Globulin [Mass ratio] 0.8 {ratio} Low 0.9-2.4 [facility] Comment on above: Performed By: #### L 500.4050, L100.0100 #### [facility] [address] [place], [address] Automated blood erythrocyte countOrdered By: Maxi Pete on 04-30-2024 RBC (Bld) [#/Vol] 4.69 10*6/uL Normal 4.2-5.4 [facility] Comment on above: Performed By: #### L 500.4050, L100.0100 #### [facility] [address] [place], [address] Automated blood hematocrit ( percentage)Ordered By: Maxi Pete on 04-30-2024 Hematocrit (Bld) [Volume fraction] 38.6 % Normal 37-47 [facility] Comment on above: Performed By: #### L 500.4050, L100.0100 #### [facility] [address] [place], [address] Automated lymphocyte count a s percentage of total leukocytesOrdered By: Maxi Pete on 04-30-2024 Lymphocytes/100 WBC (Bld) 16.3 % Low 19-41 [facility] Comment on above: Performed By: #### L 500.4050, L100.0100 #### [facility] [address] [place], [place], [id number] (080 Basophil percentageOrdered B y: Maxi Pete on 04-30-2024 Basophils/100 WBC (Bld) 0.4 % Normal 0-1 [facility] Comment on above: Performed By: #### L 500.4050, L100.0100 #### [facility] [address] [place], [address] Bilirubin Test strip Ql (U)O rdered By: Maxi Canelatiny on 04-30-2024 Bilirubin Ql (U) Negative Negative [facility] Bilirubin, totalOrdered By: Maxi Pete on 04-30-2024 Bilirubin [Mass/Vol] 0.20 mg/dL Normal 0.20-1.00 [facility] Comment on above: For patients on eltr ombopag therapy, use of [place]ension [place] TBIL is not recommended. Result Comment: For patients on eltrombopag therapy, use of Dimension [place] TBIL is not recommended. Performed By: #### L 500.4050, L100.0100 #### [facility] [address] [place], [place], [id number] Blood urea nitrogen (BUN)/cr eatinine ratioOrdered By: Maxi Pete on 04-30-2024 Urea nitrogen/Creatinine [Mass ratio] 11.7 mg/mg 10-20 [facility] CBC W/Diff, Automatedon 04-10 Absolute Lymph 1.89 X10 3/uL Normal 0.83-4.51 [facility] Comment on above: Performed By: #### L 500.4050, L100.0100 #### [facility] [address] [place], [address] Absolute Neut 8.3 X10 3/uL High 2.0-7.7 [facility] Comment on above: Performed By: #### L 500.4050, L100.0100 #### [facility] [address] [place], [address] IG% 0.400 Normal 0.0-0.9 [facility] Comment on above: Result Comment: IG% - Immature Granulocytes (promyelocytes, myelocytes and metamyelocytes) > 1% indicates that a LEFT SHIFT is Present. Performed By: #### L 500.4050, L100.0100 #### [facility] [address] [place], [address] Nucleated RBC (Bld) [#/Vol] 0 10*3/uL Normal 0-5 [facility] Comment on above: Performed By: #### L 500.4050, L100.0100 #### [facility] [address] [place], [address] RDW SD 42.7 fl Normal 35.1-43.9 [facility] Comment on above: Performed By: #### L 500.4050, L100.0100 #### [facility] [address] [place], [address] Carbon dioxide measurementOr dered By: Maxi Pete on 04-30-2024 CO2 [Moles/Vol] 22.0 mmol/L Normal 21.0-32.0 [facility] Comment on above: Performed By: #### L 500.4050, L100.0100 #### [facility] [address] [place], [address] Chloride measurementOrdered By: Maxi Pete on 04-30-2024 Chloride [Moles/Vol] 107 mmol/L Normal 98-107 [facility] Comment on above: Performed By: #### L 500.4050, L100.0100 #### [facility] [facility] [address] [place], [address] Comprehensive Metabolic Prof ilon 04-30-2024 ALK P 84 U/L Normal 45-117 [facility] Comment on above: Performed By: #### L 500.4050, L100.0100 #### [facility] [address] [place], [address] BUN/CRE 11.7 RATIO Normal 10-20 [facility] Comment on above: Performed By: #### L 500.4050, L100.0100 #### [facility] [address] [place], [address] CA,Total 9.5 mg/dL Normal 8.5-10.1 [facility] Comment on above: Performed By: #### L 500.4050, L100.0100 #### [facility] [address] [place], [address] ECRCL 153.08 ml/min Normal [facility] Comment on above: Performed By: #### L 500.4050, L100.0100 #### [facility] [address] [place], [address] EST GFR - AA 160 mL/min Normal >60 [facility] Comment on above: Result Comment: Afri can Cambodian GFR Calc Performed By: #### L 500.4050, L100.0100 #### [facility] [address] [place], [address] GAP 8 Normal 5-15 [facility] Comment on above: Performed By: #### L 500.4050, L100.0100 #### [facility] [address] [place], [address] GFR/1.73 sq M.predicted among non-blacks MDRD (S/P/Bld) [Vol rate/Area] 132 mL/min/{1.73_m2} Normal >60 [facility] Comment on above: Result Comment: Non- GFR Calc Performed By: #### L 500.4050, L100.0100 #### [facility] [address] [place], [address] T PROT 8.5 g/dL High 6.4-8.2 [facility] Comment on above: Performed By: #### L 500.4050, L100.0100 #### [facility] [address] [place], [address] Comprehensive Metabolic Prof ilOrdered By: Maxi Pete on 04-30-2024 AST [Catalytic activity/Vol] 16 U/L Normal 15-37 [facility] Comment on above: Performed By: #### L 500.4050, L100.0100 #### [facility] [address] [place], [address] Emergency Department Summary on 04-30-[address] [facility] Medical Records Department [address] [place] [address] Emergency Department Summary 04/30/24 MR#: [id number] Acct: [id number] Name: STACI PRICE Rep #: [id number] : 2000 24 From: Maxi Pete MD PCP: Care Physician,No Primary Status:REG ER Location: ED HPI History of Present Illness Chief Complaint: Nausea/Vomiting Narrative Narrative: 44-year-old female, G5, P4 at approximately 11 weeks gestation presents with nausea and vomiting that started at 6 AM this morning. Yesterday, she was feeling well. She states she feels flushed but is not running a fever. She has vomited multiple times at home without any blood in her emesis. Of note, she has had hyperemesis throughout her previous pregnancies but this is the first time that it is happening with this particular . She denies any pelvic pain or vaginal pain. No cramping, no vaginal bleeding. No exacerbating or alleviating factors. She had leftover Zofran at home which she took without relief. She denies any lightheadedness, no chest pain or shortness of breath. No headache. [facility] Medical History Chlamydia infection affecting Acid reflux Asthma Preeclampsia Home Medications ???Medication ???Instructions ???Recorded ???Last Taken ???Type metoclopramide HCl 5 mg tablet 5 mg PO Q6H #20 tabs 04/30/24 Unkn own Rx (Reglan) Allergy/AdvReac Type Severity Reaction Status Date / Time No Known Allergies Allergy Verified 04/30/24 18:48 Social History Smoking Status: Current every day smoker tobacco type: e-cigarettes ROS ROS ED ROS Narrative Review of systems, focused, positive for nausea and vomiting. No hematemesis. No fevers or chills. No pelvic pain, no vaginal pain, no vaginal bleeding. No abdominal pain. No lightheadedness. EXAM Physical Exam Narrative Exam Narrative: Afebrile. Vital signs noted. Nontoxic-appearing. Cardiovascular examination reveals a mild tachycardia at 107 bpm. Lungs are clear to auscultation bilaterally. Abdomen soft nontender with normoactive bowel sounds. Neurological examination nonfocal and nonlateralizing. Const Vital Signs: 04/30/24 18:45 04/30/24 20:45 04/30/24 21:28 Temperature 97.2 F L 98.7 F Temperature Source Temporal Oral Pulse Rate 107 H 86 Respiratory Rate 16 18 Blood Pressure 128/83 H 110/85 H Blood Pressure Mean 98 93 Pulse Ox 98 100 Oxygen Delivery Method Room Air Room Air MDM MDM MDM Narrative Medical decision making narrative: Differential diagnosis includes but not limited to hyperemesis gravidarum versus gastritis versus nausea and vomiting with . 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 Patient will be bolused normal saline. I will check a CBC and CMP to look for dehydration as well as a UA to look for ketones. I doubt that she has a urinary tract infection that is the cause of this. She was administered ondansetron intravenously. She has not had any vomiting here in the emergency department. I reviewed her laboratory work and she has slight elevation of her white count 11.6, hemoglobin 13.1, sodium normal at 136 with potassium 3.6, BUN of 7 and creatinine 0.60. Glucose appropriately elevated 94 with a normal anion gap of 8. LFTs are grossly unremarkable. While her urinalysis was obtained and there is no evidence of ketones, there are 5-10 WBCs with 2+ bacteria. I discussed the patient with her nurse practitioner/midwif yancy Guillory who agrees with culturing her urine. She had been on Zofran because that had worked with her previous pregnancies, but in discussion with the sanitary landfill operator/nurse practitioner she agrees with trial dose of Reglan. This was offered to the patient here but she declined. I wrote her prescription of 5 mg tablets to take every 6 hours as needed for nausea and vomiting. She will start a clear liquid diet and advance as tolerated tomorrow and follow-up with her LEAD CUSTODIAN on Thursday, 2 days from now. I feel she can be discharged to follow-up. Return instructions reviewed. Disposition is discharged home in stable condition. History Record Review Discussion w/independent historian: Patient Lab Data Attestation: I reviewed the patient's lab results. Labs: Laboratory Results - last 24 hr 04/30/24 04/30/24 19:00 19:13 WBC 11.6 H RBC 4.69 Hgb 13.1 Hct 38.6 MCV 82.3 MCH 27.9 MCHC 33.9 RDW Std Deviation 42.7 RDW Coeff of Gregory 14.5 Plt Count 251 MPV 11.6 Immature Gran % (Auto) 0.400 Neut % (Auto) 72.0 H Lymph % (Auto) 16.3 L Kimball % (Auto) 6.1 Eos % (Auto) 4.8 Baso % (Auto) 0. (more content not included)... Normal [facility] Eosinophil percentageOrdered By: Maxi Pete on 04-30-2024 Eosinophils/100 WBC (Bld) 4.8 % Normal 0-5 [facility] Comment on above: Performed By: #### L 500.4050, L100.0100 #### [facility] [address] [place], [address] Epithelial cells.squamous LM Ql (Urine sed)Ordered By: Maxi Pete on 04-30-2024 Epithelial cells.squamous LM.HPF (Urine sed) [#/Area] 0 /[HPF] 5-10 [facility] Erythrocyte distribution wid th (RBC) [Ratio]Ordered By: Maxi Pete on 04-30-2024 Erythrocyte distribution width (RBC) [Entitic vol] 42.7 fL 35.1-43.9 [facility] Erythrocyte distribution wid th ratioOrdered By: Mxai Pete on 04-30-2024 Erythrocyte distribution width (RBC) [Ratio] 14.5 % Normal 11.6-14.6 [facility] Comment on above: Performed By: #### L 500.4050, L100.0100 #### [facility] [address] [place], [place], [id number] Estimated glomerular filtrat ion rate (GFR) AmericanOrdered By: Maxi Pete on 04-30-2024 Estimated GFR (MDRD) Amer 160 mL/min >60 [facility] Comment on above: GFR Calc Estimation of creatinine bob aranceOrdered By: Maxi Pete on 04-30-2024 Estimated Creatinine Clearance Calc 153.08 ml/min [facility] Glomerular filtration rate ( GFR) estimationOrdered By: Maxi Pete on 04-30-2024 Estimated GFR (MDRD) Non-Af Amer 132 mL/min >60 [facility] Comment on above: Non- GFR Calc Glucose Ql (U)Ordered By: Taco Pete on 04-30-2024 Urine Glucose (UA) Normal mg/dl Normal [facility] Glucose measurementOrdered B y: Maxi Pete on 04-30-2024 Glucose [Mass/Vol] 94 mg/dL Normal 74-[address] [facility] Comment on above: Performed By: #### L 500.4050, L100.0100 #### [facility] [address] [place], [address] Hemoglobin measurementOrdere d By: Maxi Pete on 04-30-2024 Hemoglobin (Bld) [Mass/Vol] 13.1 g/dL Normal 12.0-15.0 [facility] Comment on above: Performed By: #### L 500.4050, L100.0100 #### [facility] [address] [place], [address] Immature granulocytes/100 WB C Auto (Bld)Ordered By: Maxi Pete on 04-30-2024 Immature granulocytes/100 WBC (Bld) 0.400 % 0.0-0.9 [facility] Comment on above: IG% - Immature Granu locytes (promyelocytes, myelocytes and metamyelocytes) > 1% indicates that a LEFT SHIFT is Present. Ketones Test strip Ql (U)Ord ered By: Maxi Canelatiny on 04-30-2024 Ketones Ql (U) Negative Negative [facility] Lymphocytes Auto (Unsp spec) [#/Vol]Ordered By: Maxi Pete on 04-30-2024 Lymphocytes (Bld) [#/Vol] 1.89 10*3/uL 0.83-4.51 [facility] MCV (mean corpuscular volume ) determinationOrdered By: Maxi Pete on 04-30-2024 MCV (RBC) [Entitic vol] 82.3 fL Normal 81-99 [facility] Comment on above: Performed By: #### L 500.4050, L100.0100 #### [facility] [address] [place], [address] Mean corpuscular hemoglobin (MCH) determinationOrdered By: Maxi Pete on 04-30-2024 MCH (RBC) [Entitic mass] 27.9 pg Normal 27.0-32.0 [facility] Comment on above: Performed By: #### L 500.4050, L100.0100 #### [facility] [address] [place], [address] Mean corpuscular hemoglobin concentration (MCHC) determinationOrdered By: Maxi Pete on 04-30-2024 MCHC (RBC) [Mass/Vol] 33.9 g/dL Normal 32-36 [facility] Comment on above: Performed By: #### L 500.4050, L100.0100 #### [facility] [address] [place], [address] Mean platelet volume determi nationOrdered By: Maxi Pete on 04-30-2024 Platelet mean volume (Bld) [Entitic vol] 11.6 fL Normal 6.2-12.0 [facility] Comment on above: Performed By: #### L 500.4050, L100.0100 #### [facility] [address], [place], [id number] Microscopic analysis of urin e for red blood cells (RBC)Ordered By: Maxi Pete on 04-30-2024 Urine RBC 0-5 SEEN /hpf 0-5 [facility] Monocyte percentageOrdered B y: Maxi Pete on 04-30-2024 Monocytes/100 WBC (Bld) 6.1 % Normal 0-10 [facility] Comment on above: Performed By: #### L 500.4050, L100.0100 #### [facility] [address], [place], [id number] Mucus LM Ql (Urine sed)Order ed By: Maxi Pete on 04-30-2024 Mucus Ql (Urine sed) 0 SEEN /hpf [facility] Neutrophil percentageOrdered By: Maxi Pete on 04-30-2024 Neutrophils/100 WBC (Bld) 72.0 % High 47-70 [facility] Comment on above: Performed By: #### L 500.4050, L100.0100 #### [facility] [address], [place], [id number] Nitrite Test strip Ql (U)Ord ered By: Maxi Pete on 04-30-2024 Nitrite Ql (U) Negative Negative [facility] Nucleated red blood cell per centageOrdered By: Maxi Pete on 04-30-2024 Nucleated RBC/100 WBC (Bld) [Ratio] 0 % 0-5 [facility] Platelet countOrdered By: Taco Pete on 04-30-2024 Platelets (Bld) [#/Vol] 251 10*3/uL Normal 150-450 [facility] Comment on above: Performed By: #### L 500.4050, L100.0100 #### [facility] [address] [place], [address] Potassium measurementOrdered By: Maxi Pete on 04-30-2024 Potassium [Moles/Vol] 3.6 mmol/L Normal 3.5-5.1 [facility] Comment on above: Performed By: #### L 500.4050, L100.0100 #### [facility] [address] [place], [address] Protein Test strip Ql (U)Ord ered By: Maxi Pete on 04-30-2024 Protein Ql (U) 30 mg/dl High Negative [facility] Serum anion gap measurementO rdered By: Maxi Pete on 04-30-2024 Anion gap [Moles/Vol] 8 mmol/L 5-15 [facility] Serum globulin measurementOr dered By: Maxi Pete on 04-30-2024 Globulin (S) [Mass/Vol] 4.8 g/dL High 2.2-4.2 [facility] Comment on above: Performed By: #### L 500.4050, L100.0100 #### [facility] [address] [place], [address] Serum or plasma alanine beal otransferase (ALT) measurementOrdered By: Maxi Pete on 04-30-2024 ALT [Catalytic activity/Vol] 24 U/L Normal 13-56 [facility] Comment on above: Performed By: #### L 500.4050, L100.0100 #### [facility] [address] [place], [address] Serum or plasma albumin juliana urement (mass/volume)Ordered By: Maxi Pete on 04-30-2024 Albumin [Mass/Vol] 3.7 g/dL Normal 3.2-5.[address] [facility] Comment on above: Performed By: #### L 500.4050, L100.0100 #### [facility] [address] [place], [address] Serum or plasma alkaline cierra sphatase measurementOrdered By: Maxi Pete on 04-30-2024 ALP [Catalytic activity/Vol] 84 U/L 45-117 [facility] Serum or plasma calcium juliana urement (mass/volume)Ordered By: Maxi Pete on 04-30-2024 Calcium [Mass/Vol] 9.5 mg/dL 8.5-10.[address] [facility] Serum or plasma creatinine m easurement (mass/volume)Ordered By: Maxi Pete on 04-30-2024 Creatinine [Mass/Vol] 0.60 mg/dL Normal 0.55-1.02 [facility] Comment on above: The validity of the calculated GFR & GFRAA in patients over 70 years has not been determined. Clinical correlation is essential. Result Comment: The validity of the calculated GFR GFRAA in patients over 70 years has not been determined. Clinical correlation is essential. Performed By: #### L 500.4050, L100.0100 #### [facility] [address] [facility] [address] Serum or plasma urea nitroge n measurement (mass/volume)Ordered By: Maxi Pete on 04-30-2024 Urea nitrogen [Mass/Vol] 7 mg/dL Normal 7-18 [facility] Comment on above: Performed By: #### L 500.4050, L100.0100 #### [facility] [address] [place], [address] Sodium levelOrdered By: Maxi Pete on 04-30-2024 Sodium [Moles/Vol] 136 mmol/L Normal 136-[address] [facility] Comment on above: Performed By: #### L 500.4050, L100.0100 #### [facility] [address] [facility] [place], [address] Total proteinOrdered By: Jocelin Pete on 04-30-2024 Protein [Mass/Vol] 8.5 g/dL High 6.4-8.[address] [facility] Urinalysis, Completeon 04-30 EPI,SQUAMOUS 0-5 SEEN Normal 5-10 [facility] Comment on above: Order Comment: COLLE CTOR TO SPECIFY Performed By: #### L 400.0001 #### [facility] [address] [place], [address] RBC 0-5 SEEN Normal 0-5 [facility] Comment on above: Order Comment: MARY LOU CTOR TO SPECIFY Performed By: #### L 400.0001 #### [facility] [address] [facility] [address] BACTERIA 2+ /hpf Normal None Seen [facility] Comment on above: Order Comment: MARY LOU CTOR TO SPECIFY Performed By: #### L 400.0001 #### [facility] [address] [facility] [address] WBC 5-10 SEEN Normal 0-5 [facility] Comment on above: Order Comment: MARY LOU CTOR TO SPECIFY Performed By: #### L 400.0001 #### [facility] [address] [place] [id number] Mucus Ql (Urine sed) 0 SEEN Normal [facility] Comment on above: Order Comment: MARY LOU CTOR TO SPECIFY Performed By: #### L 400.0001 #### [facility] [address] [place], [place], [address] Urine blood detectionOrdered By: Maxi Pete on 04-30-2024 Urine Occult Blood 25 /ul High Negative [facility] Urine clarityOrdered By: Jocelin Pete on 04-30-2024 Clarity (U) Sl. Cloudy Clear [facility] Urine color determinationOrd ered By: Maxi Pete on 04-30-2024 Color (U) Yellow Yellow [facility] Urine cultureOrdered By: Jocelin Pete on 04-30-2024 Bacteria identified Cx Nom (U) Positive Abnormal [facility] Urine leukocyte esterase det ection by dipstickOrdered By: Maxi Pete on 04-30-2024 Leukocyte esterase Test strip Ql (U) 25 /ul High Negative [facility] Urine pHOrdered By: Maxi lopez on 04-30-2024 pH (U) 6.5 [pH] 5.0 - 8.0 [facility] Urine sediment bacteria coun t by microscopy (number/high power field)Ordered By: Maxi Pete on 04-30-2024 Bacteria LM.HPF (Urine sed) [#/Area] 2 /[HPF] None Seen [facility] Urine specific gravity measu rementOrdered By: Maxi Pete on 04-30-2024 Specific gravity (U) [Rel density] 1.020 1.002-1.030 [facility] Urobilinogen Ql (U)Ordered B y: Maxi Rolatiny on 04-30-2024 Urobilinogen (U) [Mass/Vol] 1 mg/dL High Normal [facility] White blood cell (WBC) count Ordered By: Maxi Pete on 04-30-2024 WBC (Bld) [#/Vol] 11.6 10*3/uL High 4.4-11.0 [facility] Comment on above: Performed By: #### L 500.4050, L100.0100 #### [facility] [place], [address] White blood cell countOrdere d By: Maxi Pete on 04-30-2024 Urine WBC 5-10 SEEN /hpf 0-5 [facility] CNPNon [facility]-12-2024 [facility][id number] ---- STACI PRICE ([id number]) 2 F Date Time Provider Department 04/12/24 KYLEE BUTLER [id number] During your visit today, we recorded the following information about you: Kylee Butler RN 04/12/2024 12:22 PM Signed 1st risk assessment form submitted 04/12/2024. Kylee Butler RN Allergies As of Date: 04/12/2024 (No Known Allergies) Date Reviewed: 04/11/2024 Reviewed by: Curt Mauricio MA - Fully Assessed Reason for Visit: Milk Sampler - Other [3602] Cmt: PRADave Prescriptions as of 04/12/2024 - aspirin, enteric coated (ECOTRIN LOW STRENGTH) 81 mg EC tablet Take 1 tablet by mouth once daily. - aspirin, enteric coated (ASPIRIN, ENTERIC COATED) 81 mg EC tablet Take 2 tablets by mouth once daily. - Hhxnixpj-Il-Lfx-Fe- FA tab Take 1 tablet by mouth once daily. With DHA and folic acid as covered by insurance. - albuterol HFA (PROAIR HFA) 90 mcg/actuation inhaler Inhale 2 Puffs as instructed every 4 hours as needed. - PNV no.006-[id number]-pw4-dha-e pa-fish ( GUMMIES) 400 mcg-35 mg- 25 mg-5 mg chew Take 1 tablet by mouth once daily. Problem List As Of Date 04/12/2024 Noted Resolved Supervision of high risk in second tr*07/29/2018 with care elsewhere, antepar*07/29/2018 10/24/2021 Genital warts complicating [O98.319, *07/30/2018 Late care affecting , antepar*08/11/2018 04/11/2024 Nausea and vomiting in [O21.9] 06/07/2020 04/11/2024 UTI (urinary tract infection) in , ant*06/07/2020 10/24/2021 History of nicotine vaping [Z87.891] 06/07/2020 04/11/2024 Patient request for diagnostic testing [Z01.89] 10/21/2021 04/11/2024 Hx of pre-eclampsia, prior , currently* 2 Bacteriuria [R82.71] 11/01/2021 04/11/2024 Short interval between pregnancies affecting pr*01/21/2023 History of marijuana use [F12.91] 01/21/2023 04/11/2024 Candidiasis of vagina during [O98.819*01/28/2023 04/11/2024 Chlamydia trachomatis infection in mother durin*02/11/2023 04/11/2024 Abnormal chromosomal and genetic finding on ant*03/11/2023 History of shoulder dystocia in prior * 5 History of spontaneous [Z87.59] 04/11/2024 Encounter Status:Closed by KYLEE BUTLER on 04/12/24 Normal [facility] BACTERIAL VAGINOSIS NAATon 0 04-11-2024 Lactobacillus crispatus+gasseri+jense sheng + Gardnerella vaginalis + Atopobium vaginae rRNA SANDIP+probe Ql (Vag fld) Not detected Normal Not detected [facility] Comment on above: Order Comment: Speci men Type: SWAB Ordering Facility: [facility] Address: [address] [place] [address] Performed By: #### 3 6902-5, BVAMP #### [facility] CLIA [id number] [address] [place] [address] [place] Bacteria Ur Culton Bacteria identified Cx Nom (U) ORGANISM ID: 1 <10,000 CFU/ml Normal urogenital harriett Normal [facility] Comment on above: Performed By: #### 6 30-4 ####[facility] [id number] [place] [address] [place] C. trachomatis+N. gonorrhoea e DNA SANDIP+probe Ql (Unsp spec)on 04-11-2024 C. trachomatis rRNA SANDIP+probe Ql (Unsp spec) Not detected Normal Not detected [facility] Comment on above: Order Comment: Speci men Type: SWABOrdering Facility: [facility] Address: [address] [place] [address] Performed By: #### 3 6902-5 ####[facility] [id number] [place] [address] [place] N. gonorrhoeae rRNA SANDIP+probe Ql (Unsp spec) Not detected Normal Not detected [facility] Comment on above: Order Comment: Speci men Type: SWABOrdering Facility: [facility] Address: [address] [place] [address] Performed By: #### 3 6902-5 ####[facility] [id number] [place] [address] [place] ALFRED/TRICHOMONAS NAATon 0 04-11-2024 C. glabrata RNA SANDIP+probe Ql (Vag fld) Not detected Normal Not detected [facility] Comment on above: Order Comment: Speci men Type: SWAB Ordering Facility: [facility] Address: [address] [place] [address] Performed By: #### 3 6902-5, BVAMP #### [facility] CLIA [id number] [address] [place] [address] [place] Alfred sp DNA SANDIP+probe Ql (Vag fld) Not detected Normal Not detected [facility] Comment on above: Order Comment: Speci men Type: SWAB Ordering Facility: [facility] Address: [address] [place] [address] Result Comment: The Alfred species group target includes C. albicans, C. tropicalis, C. parapsilosis, and C. dubliniensis. Performed By: #### 3 6902-5, BVAMP #### [facility] CLIA [id number] [address] [place] [address] [place] T. vaginalis DNA SANDIP+probe Ql (Unsp spec) Not detected Normal Not detected [facility] Comment on above: Order Comment: Speci men Type: SWAB Ordering Facility: [facility] Address: [address] [place] [address] Performed By: #### 3 6902-5, BVAMP #### [facility] CLIA [id number] [address] [place] [address] [place] PAP TESTon 04-11-2024 ADEQUACY Normal [facility] Comment on above: Order Comment: Speci men Type: FLUID SPECIMENOrdering Facility: [facility] Address: [address] [place] [address] Result Comment: Sati sfactory for interpretation. No endocervical component Performed By: #### L [id number] ####[facility] [id number] [place] [address] [place] CASE REPORT Normal [facility] Comment on above: Order Comment: Speci men Type: FLUID SPECIMENOrdering Facility: [facility] Address: [address] [place] [address] Result Comment: Gyne cologic Cytology Report Case: [id number] Authorizing Provider: Elvira Guillory APRN.CNM Collected: 04/11/2024 01:46 PM Ordering Location: OB/Gynecology Received: 04/11/2024 04:33 PM First Screen: Gladkaya, Hilda, CT, ASCP Specimen: Pap Test, ThinPrep, Cervix Performed By: #### L [id number] ####[facility] [id number] [place] [address] [place] CLINICAL HISTORY, CYTOLOGY, BALL ROLLING MACHINE OPERATOR Previous ASCUS Normal [facility] Comment on above: Order Comment: Speci men Type: FLUID SPECIMENOrdering Facility: [facility] Address: [address] [place] [address] Result Comment: Preg nant (Indicate Weeks) 7 weeks Performed By: #### L [id number] ####[facility] [id number] [place] [address] [place] FINAL PERFORMING LAB Normal [facility] Comment on above: Order Comment: Speci men Type: FLUID SPECIMENOrdering Facility: [facility] Address: [address] [place] [address] Result Comment: Tech nical component, marina sales and service supervisor screening performed at [facility], [address] [place] [address] CLIA# [id number] Diagnostic interpretation performed at [facility], [address] [place] [address] CLIA# [id number] Equine Vet: Jonathan Abebe M.D. Performed By: #### L [id number] ####[facility] [id number] [place] [id number] [place] INTERPRETATION, CYTOLOGY, BALL ROLLING MACHINE OPERATOR Normal [facility] Comment on above: Order Comment: Speci men Type: FLUID SPECIMENOrdering Facility: [facility] Address: [address] [place] [address] Result Comment: Nega tive for intraepithelial lesion or malignancy. at 0929 EST Performed By: #### L [id number] ####[facility] [id number] [place] [id number] [place] LMP 01/20/2023 Normal [facility] Comment on above: Order Comment: Speci men Type: FLUID SPECIMENOrdering Facility: [facility] Address: [address] [place] [address] Performed By: #### L [id number] ####[facility] [id number] [place] [address] [place] PAP DISCLAIMER COMMENT The Pap Smear is a screening test for cervical cancer. False negative results occur with all screening tests, emphasizing the need for rescreening at recommended intervals, and clinical correlation. Normal [facility] Comment on above: Order Comment: Speci men Type: FLUID SPECIMENOrdering Facility: [facility] Address: [address] [place] [address] Performed By: #### L [id number] ####[facility] [id number] [place] [id number] [place] PAP KEYBOARDING TEACHER COMMENT This specimen has been analyzed by the ThinPrep Imaging System, an automated imaging and review system, which assists the laboratory in evaluating cells on ThinPrep Pap tests. Following automated imaging, selected doe from every slide are reviewed by a marina sales and service supervisor. Normal [facility] Comment on above: Order Comment: Speci men Type: FLUID SPECIMENOrdering Facility: [facility] Address: [address] [place] [address] Performed By: #### L [id number] ####[facility] [id number] [address] [place] POC MACHINE MAINTENANCE REPAIRER ULTRASOUNDon 04-11-19 Indication Viability; confirm cardiac activity Impression Single intrauterine gestational sac, CRL is appropriate for clinical dates, corresponding to KIARA 7w5d cardiac activity is visualized Recommendations Follow up for 1st Trimester Anatomy with Nuchal Translucency as clinically indicated if desired. Method Transabdominal and transvaginal ultrasound examination Rosario . Number of embryos: 1 Dating LMP on: 02/17/2024 GA by LMP 7 w + 5 d KIARA by LMP: 11/23/2024 Ultrasound examination on: 04/11/2024 GA by U/S based upon: CRL GA by U/S 7 w + 1 d KIARA by U/S: 11/27/2024 Assigned: based on the LMP, selected on 04/11/2024 Assigned GA 7 w + 5 d Assigned KIARA: 11/23/2024 Biometry Standard FHR 153 bpm CRL 10.2 mm 7w 1d 3% Hadlock Assessment Gestational sac: visualized Location: intrauterine Yolk sac: visualized Embryo: visualized CRL 10.2 mm 7w 1d 3% Hadlock Cardiac activity: present FHR 153 bpm General Evaluation Cardiac activity present. FHR 153 bpm Performed By: Elvira Guillory CNM Read By: Elvira Guillory CNM MATERNAL MEDICINE [facility] Radiology Study observation (narrative) Bob knox [facility] 04-08-2024 JOHN Telephone ([facility]) ---- STACI PRICE ([id number]) 2 F Date Time Provider Department 04/08/24 JUJU ROTHMAN [facility] During your visit today, we recorded the following information about you: Juju Rothman APRN.CNP 04/08/2024 8:16 AM Signed Please call patient let her know she is positive for chlamydia. Patient is so azithromycin was called in and she will just take it 1 time. Patient was negative for gonorrhea, yeast, trichomonas. Patient needs to take medication and partner should be checked and treated. Patient should follow-up with Candice Rg RN 04/08/2024 10:17 AM Signed Pt saw her results on her MyChart so called in. Given information from Juju Rothman. Azithromycin prescription appears to be pended but not filed yet. Pt instructed to check with [facility] in a couple of hours for the order. Darcie Camp MA 04/08/2024 10:50 AM Signed Provider notified, order signed. Darcie Camp MA Allergies As of Date: 04/08/2024 (No Known Allergies) Date Reviewed: 04/07/2024 Reviewed by: Katelynn Ray MA - Fully Assessed Reason for Visit: Results [95] Orders [681] Order(s):azithromyc in (ZITHROMAX) 500 mg tabletTake 2 tablets by mouth one time only for 1 dose.Disp: 2 tabletRfl: 0 Prescriptions as of 04/08/2024 - azithromycin (ZITHROMAX) 500 mg tablet Take 2 tablets by mouth one time only for 1 dose. - aspirin, enteric coated (ASPIRIN, ENTERIC COATED) 81 mg EC tablet Take 2 tablets by mouth once daily. - PNV without Ca-Iron PsCmplx-FA 29 mg iron- 1 mg chew Take 1 tablet by mouth once daily. - albuterol HFA (PROAIR HFA) 90 mcg/actuation inhaler Inhale 2 Puffs as instructed every 4 hours as needed. - PNV no.733-UA-zl0-dha-e pa-fish ( GUMMIES) 400 mcg-35 mg- 25 mg-5 mg chew Take 1 tablet by mouth once daily. Problem List As Of Date 04/08/2024 Noted Resolved Supervision of high risk in second tr*07/29/2018 with care elsewhere, antepar*07/29/2018 10/24/2021 Genital warts complicating [O98.319, *07/30/2018 Late care affecting , antepar*08/11/2018 Nausea and vomiting in [O21.9] 06/07/2020 UTI (urinary tract infection) in , ant*06/07/2020 10/24/2021 History of nicotine vaping [Z87.891] 06/07/2020 Patient request for diagnostic testing [Z01.89] 10/21/2021 Hx of pre-eclampsia, prior , currently* Bacteriuria [R82.71] 11/01/2021 Short interval between pregnancies affecting pr*01/21/2023 History of marijuana use [F12.91] 01/21/2023 Candidiasis of vagina during [O98.819*01/28/2023 Chlamydia trachomatis infection in mother durin*02/11/2023 Abnormal chromosomal and genetic finding on ant*03/11/2023 Prescriptions ordered this encounter Disp Refills Start End AZITHROMYCIN 500 MG TABLET 2 ta* 0 04/08/2024 04/08/2024 Route: ORAL Sig: Take 2 tablets by mouth one time only for 1 dose. Encounter Status:Closed by JUJU ROTHMAN on 04/08/24 Normal [facility] BACTERIAL VAGINOSIS NAATon 0 04-07-2024 Interpretation and review of laboratory results Normal [facility] Lactobacillus crispatus+gasseri+jense sheng + Gardnerella vaginalis + Atopobium vaginae rRNA SANDIP+probe Ql (Vag fld) Not detected Not detected [facility] Lactobacillus crispatus+gasseri+jense sheng + Gardnerella vaginalis + Atopobium vaginae rRNA SANDIP+probe Ql (Vag fld) Not detected Normal Not detected [facility] Comment on above: Order Comment: Speci men Type: SWAB Ordering Facility: [facility] Address: [address] [place] [address] Performed By: #### 3 6902-5, BVAMP #### [facility] CLIA [id number] [address] [place] [address] [place] [address] [place] Bacteria Ur Culton 5 Bacteria identified Cx Nom (U) ORGANISM ID: 1 50,000-<100,000 CFU/ml Normal urogenital harriett Normal [facility] Comment on above: Performed By: #### 6 30-4 ####[facility] [id number] [place] [address] [place] C. trachomatis+N. gonorrhoea e DNA SANDIP+probe Ql (Unsp spec)on 04-07-2024 C. trachomatis rRNA SANDIP+probe Ql (Unsp spec) Detected Abnormal Not detected [facility] Comment on above: Order Comment: Speci men Type: SWAB Ordering Facility: [facility] Address: [address] [place] [address] Performed By: #### 3 6902-5, BVAMP #### [facility] CLIA [id number] [address] [place] [address] [place] N. gonorrhoeae rRNA SANDIP+probe Ql (Unsp spec) Not detected Normal Not detected [facility] Comment on above: Order Comment: Speci men Type: SWAB Ordering Facility: [facility] Address: [address] [place] [address] Performed By: #### 3 6902-5, BVAMP #### [facility] CLIA [id number] [address] [place] [address] [place] ALFRED/TRICHOMONAS NAATon 0 04-07-2024 C. glabrata RNA SANDIP+probe Ql (Vag fld) Not detected Normal Not detected [facility] Comment on above: Order Comment: Speci men Type: SWAB Ordering Facility: [facility] Address: [address] [place] [address] Performed By: #### 3 6902-5, BVAMP #### [facility] CLIA [id number] [address] [place] [address] [place] Alfred sp DNA SANDIP+probe Ql (Vag fld) Not detected Normal Not detected [facility] Comment on above: Order Comment: Speci men Type: SWAB Ordering Facility: [facility] Address: [address] [place] [address] Result Comment: The Alfred species group target includes C. albicans, C. tropicalis, C. parapsilosis, and C. dubliniensis. Performed By: #### 3 6902-5, BVAMP #### [facility] CLIA [id number] [address] [place] [address] [place] T. vaginalis DNA SANDIP+probe Ql (Unsp spec) Not detected Normal Not detected [facility] Comment on above: Order Comment: Speci men Type: SWAB Ordering Facility: [facility] Address: [address] [place] [address] Performed By: #### 3 6902-5, BVAMP #### [facility] CLIA [id number] [address] [place] [address] [place] CNOVon 04-07-2024 CNOV Office Visit ([facility]) ---- STACI PRICE ([id number]) 2 F Date Time Provider Department 04/07/24 10:30 AM EVELYN MANCIA [facility] During your visit today, we recorded the following information about you: Temperature Pulse Respiration Blood pressure 98.8 degrees 95/minute 20/minute 122/74 Weight 81.1 kg Evelyn Mancia, DUST BOX WORKER.SUCCESSFACTORS CONSULTANT 04/07/2024 4:25 PM Signed Subjective Pt is a 23 y/o female who presents with vaginal pain and concerns for UTI/STI. Pt is 7 weeks and is concerned that her partner may be positive for an STI. Along with the vaginal pain, she is experiencing odor, white milky discharge and a feeling of fullness in the vaginal canal. Pt is c/o burning with urination but no increased frequency or urgency. Pt is requesting a pelvic exam at this time. Per patient, last menstrual period was 02/17/24. Per patient, due date is 11/23/2024. HPI Review of Systems Constitutional: Negative for chills, fever and malaise/fatigue. Respiratory: Negative. Cardiovascular: Negative. Gastrointestinal: Negative. Genitourinary: Positive for dysuria. Negative for flank pain, frequency, hematuria and urgency. Musculoskeletal: Negative. Skin: Negative. BP 122/74 Pulse 95 Temp 37.1 ?C (98.8 ?F) Resp 20 Wt 81.1 kg (178 lb 12.7 oz) LMP 01/20/2023 (Approximate) SpO2 99% BMI 28.00 kg/m? PAST MEDICAL HISTORY Diagnosis Date Anemia Asthma No inhaler since 7th grade Chlamydia 2017 Genital warts Gonorrhea 2017 History of pre-eclampsia in prior , currently No past surgical history on file. ALLERGIES Patient has no known allergies. MEDICATIONS aspirin, enteric coated (ASPIRIN, ENTERIC COATED) 81 mg EC tablet Take 2 tablets by mouth once daily. albuterol HFA (PROAIR HFA) 90 mcg/actuation inhaler Inhale 2 Puffs as instructed every 4 hours as needed. PNV no.295-ND-hl3-dha-e pa-fish ( GUMMIES) 400 mcg-35 mg- 25 mg-5 mg chew Take 1 tablet by mouth once daily. PNV without Ca-Iron PsCmplx-FA 29 mg iron- 1 mg chew Take 1 tablet by mouth once daily. (Patient not taking: Reported on 02/02/2024) FAMILY HISTORY Problem Relation Age of Onset No Known Problems Mother Obesity Father other (lactose intolerance) Sister No Known Problems Sister No Known Problems Sister No Known Problems Brother No Known Problems Brother No Known Problems Brother No Known Problems Maternal Grandmother No Known Problems Maternal Grandfather No Known Problems Paternal Grandmother No Known Problems Paternal Grandfather No Known Problems Daughter No Known Problems Daughter Seizures Son Social History Tobacco Use Smoking status: Never Smokeless tobacco: Never Vaping Use Vaping status: Former Quit date: 10/02/2022 Substances: Nicotine Substance Use Topics Alcohol use: Not Currently Drug use: Not Currently Types: Marijuana Objective Physical Exam Exam conducted with a strategic planner present. Constitutional: General: She is awake. Appearance: Normal appearance. Cardiovascular: Rate and Rhythm: Normal rate and regular rhythm. Pulmonary: Effort: Pulmonary effort is normal. Breath sounds: Normal breath sounds. Abdominal: General: Bowel sounds are normal. Tenderness: There is no abdominal tenderness. There is no right CVA tenderness or left CVA tenderness. Genitourinary: General: Normal vulva. Exam position: Lithotomy position. Vagina: Vaginal discharge present. No tenderness. Comments: Thin white milky discharge present on pelvic exam Neurological: Mental Status: She is alert. ASSESSMENT/PLAN: 1. Burning with urination - ICD9: 788.1, ICD10: R30.0 (primary diagnosis) acute - Patient education for prevention given - UA DIP, URINE (POC) - BACTERIAL CULTURE, URINE - treatment will be ordered based on results of urine culture 2. Vaginal discharge - ICD9: 623.5, ICD10: N89.8 - ALFRED/TRICHOMONAS NAAT - BACTERIAL VAGINOSIS NAAT - GONORRHEA/CHLAMYDIA NAAT - treatment will be ordered based on results of STI testing Macie Melendez TEACHING PROVIDER (Physician/PA/DUST BOX WORKER) NOTE OF PERSONAL INVOLVEMENT IN CARE: I have personally seen and examined the patient and performed the medical decision-making components. I have reviewed the Advanced Practice Registered Nurse (DUST BOX WORKER) Student's documentation and verified the findings in the note as written. Any additions or changes are noted in bold/italics. Signature: Evelyn Mancia Date: 04/07/2024 Time: 4:25 PM Macie Melendez 04/07/2024 11:20 AM Signed ASSESSMENT/PLAN: 1. Burning with urination - ICD9: 788.1, ICD10: R30.0 (primary diagnosis) acute - Patient education for prevention given - UA DIP, URINE (POC) - BACTERIAL CULTURE, URINE - treatment will be ordered based on results of urine culture 2. Vaginal discharge - ICD9: 623.5, ICD10: N89.8 - ALFRED/TRICHOMONAS NAAT (more content not included)... Normal [facility] UA DIP, URINE (POC)on 2024 BILIRUBIN UA (POCT) Negative Negative [facility] CLARITY UA (POCT) [facility] COLOR [facility] ([facility]) Dark yellow [facility] d [facility] GLUCOSE UA (POCT) Negative Negative mg/dL [facility] Hemoglobin Ql (U) Trace-intact Abnormal Negative [facility] Interpretation and review of laboratory results Abnormal [facility] KETONE UA (POCT) Negative Negative mg/dL [facility] LEUKOCYTES UA (POCT) Small Abnormal Negative [facility] NITRITE UA (POCT) Negative Negative [facility] PH UA (POCT) 5.5 4.5 - 8.0 [facility] Protein Ql (U) 30 mg/dL Abnormal Negative [facility] SPECIFIC GRAVITY UA (POCT) >=1.030 1.005 - 1.030 [facility] UROBILINOGEN UA (POCT) 0.2 Normal E.U./d L [facility] Location:[address], [place], [place], [address] [place] [address] POINT OF CARE [facility] CNOVon 02-03-2024 CNOV Office Visit ([facility]) ---- STACI PRICE ([id number]) 2 F Date Time Provider Department 02/03/24 10:45 AM [facility] During your visit today, we recorded the following information about you: Lissy Dodge LPN 02/03/2024 11:57 AM Signed Injection given per provider order for STD.Lissy Dodge LPN Allergies As of Date: 02/03/2024 (No Known Allergies) Date Reviewed: 02/02/2024 Reviewed by: Marian Means MA - Fully Assessed Reason for Visit: injection for STD [Other] Cmt: Injection for STD Primary Visit Diagnosis:Gonorrhea [A54.9] Prescriptions as of 02/03/2024 - metroNIDAZOLE (FLAGYL) 500 mg tablet Take 1 tablet by mouth two times a day for 7 days. - fluconazole (DIFLUCAN) 150 mg tablet Take 1 tablet by mouth one time only for 1 dose. Repeat in 3 days as needed. - aspirin, enteric coated (ASPIRIN, ENTERIC COATED) 81 mg EC tablet Take 2 tablets by mouth once daily. - PNV without Ca-Iron PsCmplx-FA 29 mg iron- 1 mg chew Take 1 tablet by mouth once daily. - albuterol HFA (PROAIR HFA) 90 mcg/actuation inhaler Inhale 2 Puffs as instructed every 4 hours as needed. - V no.917-DZ-hb2-dha-e pa-fish ( GUMMIES) 400 mcg-35 mg- 25 mg-5 mg chew Take 1 tablet by mouth once daily. Problem List As Of Date 02/03/2024 Noted Resolved Supervision of high risk in second tr*07/29/2018 with care elsewhere, antepar*07/29/2018 10/24/2021 Genital warts complicating [O98.319, *07/30/2018 Late care affecting , antepar*08/11/2018 Nausea and vomiting in [O21.9] 06/07/2020 UTI (urinary tract infection) in , ant*06/07/2020 10/24/2021 History of nicotine vaping [Z87.891] 06/07/2020 Patient request for diagnostic testing [Z01.89] 10/21/2021 Hx of pre-eclampsia, prior , currently* 2 Bacteriuria [R82.71] 11/01/2021 Short interval between pregnancies affecting pr*01/21/2023 History of marijuana use [F12.91] 01/21/2023 Candidiasis of vagina during [O98.819*01/28/2023 Chlamydia trachomatis infection in mother durin*02/11/2023 Abnormal chromosomal and genetic finding on ant*03/11/2023 Visit Notes: >> Lissy Dodge LPN Wed Feb 03, 2024 11:53 AM Status: Signed Injection given per provider order for STD.Lissy Dodge LPN Encounter Status:Closed by LISSY DODGE on 02/03/24 [facility] 02-03-2024 [facility] Telephone ([facility]) ---- STACI PRICE ([id number]) 2 F Date Time Provider Department 02/03/24 LARSENTITO WALKERICA [facility] During your visit today, we recorded the following information about you: Laina Argueta RN 02/03/2024 8:37 AM Signed Patient calls and is asking for provider to go over lab results from yesterday. Please review and advise, RATNA Chen Cara R, PA-C 02/03/2024 9:11 AM Signed Please call and let patient know she was positive for gonorrhea, yeast, bacterial vaginosis, and trichomonas. The gonorrhea needs treated with an injection that she will need to return back to [facility] for. I can treat bacterial vaginosis and trichomonas with the same antibiotic, Flagyl. Do not drink alcohol with this medication. The yeast I will send in Diflucan. She needs to follow-up with women's health. Refrain from sexual intercourse for at least a week after treatment is completed.Partners need notified. Lissy Dodge LPN 02/03/2024 9:56 AM Signed Patient notified and verbalized understanding of instructions given.Said she will return for injection.Lissy Dodge LPN Allergies As of Date: 02/03/2024 (No Known Allergies) Date Reviewed: 02/02/2024 Reviewed by: Marian Means MA - Fully Assessed Reason for Visit: Results [95] Primary Visit Diagnosis:Gonorrhea [A54.9] Order(s):metroNIDAZ OLE (FLAGYL) 500 mg tabletTake 1 tablet by mouth two times a day for 7 days.Disp: 14 tabletRfl: 0 fluconazole (DIFLUCAN) 150 mg tabletTake 1 tablet by mouth one time only for 1 dose. Repeat in 3 days as needed.Disp: 2 tabletRfl: 0 cefTRIAXone 500 mg intramuscular injection (ROCEPHIN)Disp: Rfl: Prescriptions as of 02/03/2024 - metroNIDAZOLE (FLAGYL) 500 mg tablet Take 1 tablet by mouth two times a day for 7 days. - fluconazole (DIFLUCAN) 150 mg tablet Take 1 tablet by mouth one time only for 1 dose. Repeat in 3 days as needed. - aspirin, enteric coated (ASPIRIN, ENTERIC COATED) 81 mg EC tablet Take 2 tablets by mouth once daily. - PNV without Ca-Iron PsCmplx-FA 29 mg iron- 1 mg chew Take 1 tablet by mouth once daily. - albuterol HFA (PROAIR HFA) 90 mcg/actuation inhaler Inhale 2 Puffs as instructed every 4 hours as needed. - PNV no.140-DB-fu2-dha-e pa-fish ( GUMMIES) 400 mcg-35 mg- 25 mg-5 mg chew Take 1 tablet by mouth once daily. Facility-Administer ed Medications as of 02/03/2024 - cefTRIAXone 500 mg intramuscular injection (ROCEPHIN) Problem List As Of Date 02/03/2024 Noted Resolved Supervision of high risk in second tr*07/29/2018 with care elsewhere, antepar*07/29/2018 10/24/2021 Genital warts complicating [O98.319, *07/30/2018 Late care affecting , antepar*08/11/2018 Nausea and vomiting in [O21.9] 06/07/2020 UTI (urinary tract infection) in , ant*06/07/2020 10/24/2021 History of nicotine vaping [Z87.891] 06/07/2020 Patient request for diagnostic testing [Z01.89] 10/21/2021 Hx of pre-eclampsia, prior , currently* 2 Bacteriuria [R82.71] 11/01/2021 Short interval between pregnancies affecting pr*01/21/2023 History of marijuana use [F12.91] 01/21/2023 Candidiasis of vagina during [O98.819*01/28/2023 Chlamydia trachomatis infection in mother durin*02/11/2023 Abnormal chromosomal and genetic finding on ant*03/11/2023 Prescriptions ordered this encounter Disp Refills Start End METRONIDAZOLE 500 MG TABLET 14 t* 0 02/03/2024 02/10/2024 Route: ORAL Sig: Take 1 tablet by mouth two times a day for 7 days. FLUCONAZOLE 150 MG TABLET 2 ta* 0 02/03/2024 02/03/2024 Route: ORAL Sig: Take 1 tablet by mouth one time only for 1 dose. Repeat in 3 days as needed. CEFTRIAXONE 500 MG SOLUTION FOR INJE* 02/03/2024 02/03/2024 Route: INTRAMUSCULA Encounter Status:Closed by LISSY DODGE on 02/03/24 Normal [facility] BACTERIAL VAGINOSIS NAATon 1 04-03-2023 Lactobacillus crispatus+gasseri+jense sheng + Gardnerella vaginalis + Atopobium vaginae rRNA SANDIP+probe Ql (Vag fld) Detected Abnormal Not detected [facility] Comment on above: Order Comment: Speci men Type: SWAB Ordering Facility: [facility] Address: [address] [place] [address] Performed By: #### 3 6902-5, BVAMP #### [facility] CLIA [id number] [address] [place] [address] [place] Bacteria Ur Culton Bacteria identified Cx Nom (U) ORGANISM ID: 1 >=100,000 CFU/ml Normal urogenital harriett Normal [facility] Comment on above: Performed By: #### 6 30-4 ####[facility] [id number] [place] [address] [place] C. trachomatis+N. gonorrhoea e DNA SANDIP+probe Ql (Unsp spec)on 02-02-2024 C. trachomatis rRNA SANDIP+probe Ql (Unsp spec) Not detected Normal Not detected [facility] Comment on above: Order Comment: Speci men Type: SWAB Ordering Facility: [facility] Address: [address] [place] [address] Performed By: #### 3 6902-5, BVAMP #### [facility] CLIA [id number] [address] [place] [address] [place] N. gonorrhoeae rRNA SANDIP+probe Ql (Unsp spec) Detected Abnormal Not detected [facility] Comment on above: Order Comment: Speci men Type: SWAB Ordering Facility: [facility] Address: [address] [place] [address] Performed By: #### 3 6902-5, BVAMP #### [facility] CLIA [id number] [address] [place] [address] [place] ALFRED/TRICHOMONAS NAATon 1 04-03-2023 C. glabrata RNA SANDIP+probe Ql (Vag fld) Not detected Normal Not detected [facility] Comment on above: Order Comment: Speci men Type: SWAB Ordering Facility: [facility] Address: [address] [place] [address] Performed By: #### 3 6902-5, BVAMP #### [facility] CLIA [id number] [address] [place] [address] [place] Alfred sp DNA SANDIP+probe Ql (Vag fld) Detected Abnormal Not detected [facility] Comment on above: Order Comment: Speci men Type: SWAB Ordering Facility: [facility] Address: [address] [place] [address] Result Comment: The Alfred species group target includes C. albicans, C. tropicalis, C. parapsilosis, and C. dubliniensis. Performed By: #### 3 6902-5, BVAMP #### [facility] CLIA [id number] [address] [place] [address] [place] T. vaginalis DNA SANDIP+probe Ql (Unsp spec) Detected Abnormal Not detected [facility] Comment on above: Order Comment: Speci men Type: SWAB Ordering Facility: [facility] Address: [address] [place] [address] Performed By: #### 3 6902-5, BVAMP #### [facility] CLIA [id number] [address] [place] [address] [place] CNOVon 02-02-2024 CNOV Office Visit ([facility]) ---- STACI PRICE ([id number]) 2 F Date Time Provider Department 02/02/24 12:00 PM ELVIRA LARSEN [facility] During your visit today, we recorded the following information about you: Temperature Pulse Respiration Blood pressure 98.2 degrees 86/minute 16/minute 108/70 Weight Last Period 79.5 kg 01/20/23 Elvira Larsen APRN.CNP 02/02/2024 12:18 PM Signed This note was created using Single Touch Systemsriter. Subjective Staci Price is a 23 year old female. 23 year old female with no PMH presents for female complaints Think I have a UTI or infection Acute onset of symptoms 2 days ago +suprapubic pressure +vaginal discharge Denies burning, frequency or urgency Deneis N/v/D Denies fever or chills Denies abdominal pain Denies flank pain Denies skin rash or lesions. Has history of UTI's +sexually active Recent coitus LMP-January 20-January 23 Denies contraceptives usage Denies concerns for STI She had child 6 months ago, denies she is nursing The history is provided by the patient. No review assistant was used. Female Gu Problem This is a new problem. The current episode started 2 days ago. The onset was sudden. The problem occurs continuously. The problem has been gradually worsening. The pain is mild. Nothing relieves the symptoms. Nothing aggravates the symptoms. Associated symptoms include vaginal discharge. Pertinent negatives include no chest pain, no anorexia, no chills, no fever, no abdominal pain, no constipation, no diarrhea, no nausea, no vomiting, no dysuria, no frequency, no hematuria, no urgency, no vaginal bleeding, no vaginal pain, no headaches, no sore throat, no back pain, no cough, no shortness of breath, no rash and no dyspareunia. There has been no history of trauma. Urine output has been normal. The last void occurred Less than 6 hours ago. She is currently Sexually active. She has 1 sexual partner. Contraceptives used include nothing. She is not . She has not missed her period. The patient's menstrual history has been regular. She has had prior pregnancies. Her past medical history is significant for STD and UTI. There were no sick contacts. She has received no recent medical care. PAST MEDICAL HISTORY Diagnosis Date Anemia Asthma No inhaler since 7th grade Chlamydia 2017 Genital warts Gonorrhea 2017 History of pre-eclampsia in prior , currently No past surgical history on file. ALLERGIES Patient has no known allergies. MEDICATIONS aspirin, enteric coated (ASPIRIN, ENTERIC COATED) 81 mg EC tablet Take 2 tablets by mouth once daily. albuterol HFA (PROAIR HFA) 90 mcg/actuation inhaler Inhale 2 Puffs as instructed every 4 hours as needed. PNV no.199-XI-bs9-dha-e pa-fish ( GUMMIES) 400 mcg-35 mg- 25 mg-5 mg chew Take 1 tablet by mouth once daily. PNV without Ca-Iron PsCmplx-FA 29 mg iron- 1 mg chew Take 1 tablet by mouth once daily. (Patient not taking: Reported on 02/02/2024) FAMILY HISTORY Problem Relation Age of Onset No Known Problems Mother Obesity Father other (lactose intolerance) Sister No Known Problems Sister No Known Problems Sister No Known Problems Brother No Known Problems Brother No Known Problems Brother No Known Problems Maternal Grandmother No Known Problems Maternal Grandfather No Known Problems Paternal Grandmother No Known Problems Paternal Grandfather No Known Problems Daughter No Known Problems Daughter Seizures Son Social History Tobacco Use Smoking status: Never Smokeless tobacco: Never Vaping Use Vaping status: Former Quit date: 10/02/2022 Substances: Nicotine Substance Use Topics Alcohol use: Not Currently Drug use: Not Currently Types: Marijuana Review of Systems Constitutional: Negative for chills and fever. HENT: Negative for sore throat. Respiratory: Negative for cough and shortness of breath. Cardiovascular: Negative for chest pain. Gastrointestinal: Negative for abdominal pain, anorexia, constipation, diarrhea, nausea and vomiting. Genitourinary: Positive for vaginal discharge. Negative for dyspareunia, dysuria, frequency, hematuria, urgency, vaginal bleeding and vaginal pain. Musculoskeletal: Negative for back pain. Skin: Negative for rash. Neurological: Negative for headaches. Objective BP 108/70 Pulse 86 Temp 36.8 ?C (98.2 ?F) Resp 16 Wt 79.5 kg (175 lb 4.3 oz) LMP 01/20/2023 (Approximate) SpO2 97% BMI 27.45 kg/m? Physical Exam Vitals and nursing note reviewed. Constitutional: General: She is not in acute distress. Appearance: Normal appearance. She is normal weight. She is not ill-appearing, toxic-appearing or diaphoretic. HENT: Head: Normocephalic and atraumatic. Right Ear: Ear canal and external ear normal. Left Ear: Ear canal and external ear normal. Nose: Nose normal. (more content not included)... Normal [facility] UA DIP, URINE (POC)on 2023 BILIRUBIN UA (POCT) Negative Negative [facility] CLARITY UA (POCT) Clear [facility] COLOR UA (POCT) Yellow [facility] GLUCOSE UA (POCT) Negative Negative mg/dL [facility] Hemoglobin Ql (U) Small Abnormal Negative [facility] Interpretation and review of laboratory results Abnormal [facility] KETONE UA (POCT) Negative Negative mg/dL [facility] LEUKOCYTES UA (POCT) Small Abnormal Negative [facility] NITRITE UA (POCT) Negative Negative [facility] PH UA (POCT) 5.5 4.5 - 8.0 [facility] Protein Ql (U) 30 mg/dL Abnormal Negative [facility] SPECIFIC GRAVITY UA (POCT) >=1.030 1.005 - 1.030 [facility] UROBILINOGEN UA (POCT) 0.2 Normal E.U./d L [facility] Location:[address], [place], [place], [id number] [place] [address] POINT OF CARE [facility] Emergency Department Summary on 01-05-2024 Emergency Department Summary [facility] Medical Records Department [address] [place] [address] Emergency Department Summary 01/05/24 MR#: [id number] Acct: [id number] Name: STACI PRICE Rep #: [id number] : 2000 23 From: Trevin Burroughs PCP: Care Physician,No Primary Status:DEP ER Location: ED HPI History of Present Illness Chief Complaint: Sore Throat Informant: patient Narrative Narrative: 2-day history worsening sore throat. Her child to strep 3 days ago. No fevers or chills. Reports suprapubic pain since yesterday. No urinary symptoms. Last menstrual period a week ago. Normal bowel movements. No allergies. No history of gastric ulcers or kidney injury. PFSH PFSH Medical History Chlamydia infection affecting Acid reflux Asthma Preeclampsia Home Medications ???Medication ???Instructions ???Recorded ???Last Taken ???Type cephalexin 500 mg capsule 500 mg PO Q12 #20 CAPSULES 01/05/24 Unknown Rx escitalopram oxalate 10 mg tablet 10 mg PO DAILY 01/05/24 Unknown History Allergy/AdvReac Type Severity Reaction Status Date / Time No Known Allergies Allergy Verified 01/05/24 19:11 Social History Smoking Status: Current every day smoker tobacco type: e-cigarettes ROS ROS ED Constitutional Constitutional ED: Denies chills, fever(s) or sweats Eyes Eyes: Denies change in vision ENT ENT ED: Reports sore throat; Denies dysphagia Cardiovascular Cardiovascular: Denies chest pain, leg edema, palpitations or racing heartbeat Respiratory/Chest Respiratory/Chest: Denies cough, dyspnea or dyspnea on exertion Gastrointestinal Gastrointestinal: Reports abdominal pain; Denies diarrhea, nausea or vomiting Genitourinary Genitourinary ED: Denies dysuria, hematuria or urinary frequency Musculoskeletal Musculoskeletal: Denies back pain, extremity pain or neck pain Integumentary Denies rash or wounds Neurologic Neurologic: Denies headache(s), paresthesias or weakness EXAM Physical Exam Const Vital Signs: 01/05/24 17:50 01/05/24 20:56 Temperature 98.8 F 98.2 F Temperature Source Temporal Pulse Rate 118 H 96 Respiratory Rate 18 20 H Blood Pressure 127/87 H 126/76 H Blood Pressure Mean 100 92 Pulse Ox 98 97 Oxygen Delivery Method Room Air Positive well nourished and well developed General Appearance ED: well developed and NAD HEENT Reports moist mucous membranes HEENT Narrative: 1+ symmetric tonsils bilaterally with erythema. There is exudate on the right tonsil. Uvula midline. No trismus. normocephalic and atraumatic Eyes EOMs intact bilaterally and conjunctivae normal General Eye ED: Yes normal appearance of both eyes Neck no lymphadenopathy and supple General: Negative for tenderness Chest Wall Chest: Negative for tenderness Resp normal respiratory effort and normal air movement Effort and Inspection: symmetric chest movement; Negative for respiratory distress Cardio regular rate, regular rhythm and no murmurs Peripheral Pulses: pulses 2+ throughout GI normal to inspection, nondistended, normoactive bowel sounds GI Narrative: Mild tenderness suprapubic. Negative Tarango's or McBurney's tenderness. Palpation: Negative for guarding or rebound tenderness present Back/Spine no CVA tenderness and no thoracic nor lumbar tenderness Extremity normal to inspection General Extremety ED: Negative for edema or tenderness General Extremity: Negative for edema Neuro oriented x3 and no sensory deficits noted Sensorium / Orientation: awake and alert Skin no rashes or lesions noted and no wounds MDM MDM MDM Narrative Medical decision making narrative: Interventions / MDM: Differential diagnosis: UTI, strep pharyngitis Diagnosis considered but do not suspect: No peritonsillar abscess signs My EKG interpretation: N/A Imaging independently reviewed and interpreted by myself: N/A External documents reviewed: N/A Test considered but not ordered:N/A ED course: Positive strep exposure with erythema and pus on the right tonsil. Discussed likely strep with her exposure. Will plan for treatment. However she has suprapubic tenderness. Will check a urine and hCG. Dexamethasone Motrin given. Will plan on antibiotic after urine studies. hCG negative. Urine with infection. She is started on Keflex twice a day for 10 days covers both UTI and strep pharyngitis. She will continue Lex Motrin. Outpatient follow-up. All questions were answered. Re-evaluation: stable Disposition discussed with patient/family/sign ificant other: Case discussed with consulting clinician: N/A This note was generated with Quidsi dictation software. It may contain incorrect words, spelling, and (more content not included)... Normal [facility] ,Urineon 01-05-2024 Beta HCG ( test) Ql (U) Negative Normal [facility] Comment on above: Order Comment: CLEAN CATCH Result Comment: Very dilute urine specimens, as indicated by a low specific gravity, may not contain health and safety representative levels of hCG. If is still suspected, a first morning urine specimen should be collected 48 hours later and tested. Performed By: #### L 400.0001, L400.7600 ####[facility] [address] [place], [address] Urinalysis, Completeon 01-04 BACTERIA 1+ /hpf Normal None Seen [facility] Comment on above: Order Comment: CLEAN CATCH Performed By: #### L 400.0001, L400.7600 ####[facility] [address] [place], [address] EPI,SQUAMOUS 0-5 SEEN Normal 5-10 [facility] Comment on above: Order Comment: CLEAN CATCH Performed By: #### L 400.0001, L400.7600 ####[facility] [address] [place], [address] Mucus Ql (Urine sed) 1+ /hpf Normal [facility] Comment on above: Order Comment: CLEAN CATCH Performed By: #### L 400.0001, L400.7600 ####[facility] [address] [place], [address] WBC 25-50 SEEN Normal 0-5 [facility] Comment on above: Order Comment: CLEAN CATCH Performed By: #### L 400.0001, L400.7600 ####[facility] [address] [place], [address] RBC 0 SEEN Normal 0-5 [facility] Comment on above: Order Comment: CLEAN CATCH Performed By: #### L 400.0001, L400.7600 ####[facility] [address] [place], [address] Emergency Department Summary on 12-27-2023 Emergency Department Summary [facility] Medical Records Department [address] [place] [address] Emergency Department Summary 12/27/23 MR#: [id number] Acct: [id number] Name: STACI PRICE Rep #: [id number] : 2000 23 From: Wade Markham DO PCP: Care Physician,No Primary Status:DEP ER Location: ED HPI HPI - URI History of Present Illness Chief Complaint: Cough Informant: patient Narrative Narrative: 23-year-old female presenting to the emergency room with chief complaint of sore throat cough. Patient states a couple days ago she had some ear pain. This morning woke up with cough some mild nasal congestion and sore throat. Mom notes that the 4-month-old also has developed cough and rhinorrhea. ROS ROS ED Constitutional Constitutional ED: Denies chills, fever(s) or weight loss Eyes Eyes: Denies change in vision or diplopia ENT ENT ED: Reports ear pain, rhinorrhea and sore throat Cardiovascular Cardiovascular: Denies chest pain, orthopnea, palpitations or racing heartbeat Respiratory/Chest Respiratory/Chest: Reports cough; Denies dyspnea or orthopnea Gastrointestinal Gastrointestinal: Denies abdominal pain, diarrhea, nausea or vomiting Genitourinary Genitourinary ED: Denies dysuria, hematuria or urinary frequency Musculoskeletal Musculoskeletal: Denies arthralgias or myalgias Integumentary Denies abscess or rash Neurologic Neurologic: Denies headache(s) or weakness Psychiatric Psychiatric: Denies anxiety, depression, suicidal ideation or suicidal thoughts Endocrine Endocrinology: Denies polydipsia, polyphagia or polyuria Allergic/Immunologi c Allergic/Immunologi c ED: Denies mouth swelling, tongue swelling or urticaria PFSH PFSH Medical History Chlamydia infection affecting Acid reflux Asthma Preeclampsia Home Medications ???Medication ???Instructions ???Recorded ???Last Taken ???Type vit no.95-ferrous 1 tab PO DAILY vitamin 06/13/23 Unknown History fumarate 28 mg-folic acid 800 mcg tablet () acetaminophen 500 mg tablet 1,000 mg (2 x 500 mg) PO Q6H PRN 08/26/23 Unknown Rx PRN Pain 1-10 Or Fever #30 tabs ferrous sulfate 325 mg (65 mg 325 mg PO DAILY 60 days #30 tabs 08/26/23 Unknown Rx iron) tablet (FeroSul) ibuprofen 600 mg tablet 600 mg PO Q6H PRN PRN Pain Score 08/26/23 Unknown Rx 1-10 #30 tabs Allergy/AdvReac Type Severity Reaction Status Date / Time No Known Allergies Allergy Verified 08/25/23 01:03 Social History Smoking Status: Former smoker EXAM Physical Exam Const Vital Signs: 12/27/23 11:25 12/27/23 11:27 12/27/23 14:16 Temperature 97.0 F L 97.9 F Temperature Source Temporal Pulse Rate 120 H 102 H Respiratory Rate 19 H 16 Respiratory Effort Normal Non-Labored Respiratory Depth Normal Respiratory Pattern Normal Blood Pressure 129/75 H 116/76 Blood Pressure Mean 93 89 Pulse Ox 98 97 Oxygen Delivery Method Room Air Room Air Positive well nourished and well developed General Appearance ED: well developed and NAD HEENT Reports normocephalic, head/scalp atraumatic and moist mucous membranes HEENT Narrative: Mild turbinate edema Eyes PERRL and EOMs intact bilaterally Neck no lymphadenopathy, supple and no JVD Resp normal respiratory effort and clear to auscultation bilaterally Cardio regular rate, regular rhythm and no murmurs GI normal to inspection, nondistended, normoactive bowel sounds and non-tender Palpation: soft Back/Spine no CVA tenderness and normal ROM Extremity normal to inspection General Extremety ED: Negative for edema General Extremity: Negative for edema Neuro oriented x3 and CN's II-XII intact bilaterally Sensorium / Orientation: alert Motor Exam: strength 5/5 throughout Psych mental status grossly normal Mood Affect: Negative for depressed or tearful Skin no rashes or lesions noted and no wounds MDM MDM MDM Narrative Medical decision making narrative: Differential diagnosis includes but not limited to pharyngitis viral URI sinusitis bronchitis viral syndrome Patient clinically appears well. Physical exam only reveals some mild turbinate edema and clear rhinorrhea. RSV influenza and COVID swabs were negative. Patient will be discharged home with supportive care she notes understanding of plan return if worsening History Record Review Discussion w/independent historian: Patient Lab Data Attestation: I reviewed the patient's lab results. Discharge Plan Triage Chief Complaint: Cough ED Provider: Wade Markham Dx/Rx/DC Orders Clinical Impression: URI (upper respiratory infection) Instructions: ED URI, Viral, No Abx (Adult) Prescrip (more content not included)... Normal [facility] M100.678on 12-27-2023 M100.678 Pending SARS-CoV-2 (COVID 19) Negative INFLUENZA A Negative INFLUENZA B Negative RSV PCR Negative Normal [facility] Comment on above: Performed By: #### M 100.938 #### [facility] [place], [address] CBC W/Diff, Automatedon - Absolute Lymph 1.62 X10 3/uL Normal 0.83-4.51 [facility] Comment on above: Order Comment: Comme nts: First day Performed By: #### L 100.0100 ####[facility] [address] [place], [address] Absolute Neut 11.9 X10 3/uL High 2.0-7.7 [facility] Comment on above: Order Comment: Comme nts: First day Performed By: #### L 100.0100 ####[facility] [address] [place], [address] Basophils/100 WBC (Bld) 0.3 % Normal 0-1 [facility] Comment on above: Order Comment: Comme nts: First day Performed By: #### L 100.0100 ####[facility] [address] [place], [address] Eosinophils/100 WBC (Bld) 0.4 % Normal 0-5 [facility] Comment on above: Order Comment: Comme nts: First day Performed By: #### L 100.0100 ####[facility] [address] [place], [address] Erythrocyte distribution width (RBC) [Ratio] 13.7 % Normal 11.6-14.6 [facility] Comment on above: Order Comment: Comme nts: First day Performed By: #### L 100.0100 ####[facility] [address] [place], [address] Hematocrit (Bld) [Volume fraction] 27.3 % Low 37-47 [facility] Comment on above: Order Comment: Comme nts: First day Performed By: #### L 100.0100 ####[facility] [address] [place], [address] Hemoglobin (Bld) [Mass/Vol] 8.8 g/dL Low 12.0-15.0 [facility] Comment on above: Order Comment: Comme nts: First day Performed By: #### L 100.0100 ####[facility] [address] [place], [address] IG% 0.300 Normal 0.0-0.9 [facility] Comment on above: Order Comment: Comme nts: First day Result Comment: IG% - Immature Granulocytes (promyelocytes, myelocytes and metamyelocytes) > 1% indicates that a LEFT SHIFT is Present. Performed By: #### L 100.0100 ####[facility] [address] [place], [address] Lymphocytes/100 WBC (Bld) 10.8 % Low 19-41 [facility] Comment on above: Order Comment: Comme nts: First day Performed By: #### L 100.0100 ####[facility] [address] [place], [address] MCH (RBC) [Entitic mass] 26.9 pg Low 27.0-32.0 [facility] Comment on above: Order Comment: Comme nts: First day Performed By: #### L 100.0100 ####[facility] [address] [place], [address] MCHC (RBC) [Mass/Vol] 32.2 g/dL Normal 32-36 [facility] Comment on above: Order Comment: Comme nts: First day Performed By: #### L 100.0100 ####[facility] [address] [place], [address] MCV (RBC) [Entitic vol] 83.5 fL Normal 81-99 [facility] Comment on above: Order Comment: Comme nts: First day Performed By: #### L 100.0100 ####[facility] [address] [place], [address] Monocytes/100 WBC (Bld) 8.8 % Normal 0-10 [facility] Comment on above: Order Comment: Comme nts: First day Performed By: #### L 100.0100 ####[facility] [place] [address] [place], [address] Neutrophils/100 WBC (Bld) 79.4 % High 47-70 [facility] Comment on above: Order Comment: Comme nts: First day Performed By: #### L 100.0100 ####[facility] [address] [place], [address] Nucleated RBC (Bld) [#/Vol] 0 10*3/uL Normal 0-5 [facility] Comment on above: Order Comment: Comme nts: First day Performed By: #### L 100.0100 ####[facility] [address] [place], [address] Platelet mean volume (Bld) [Entitic vol] 12.2 fL High 6.2-12.0 [facility] Comment on above: Order Comment: Comme nts: First day Performed By: #### L 100.0100 ####[facility] [address] [place], [address] Platelets (Bld) [#/Vol] 180 10*3/uL Normal 150-450 [facility] Comment on above: Order Comment: Comme nts: First day Performed By: #### L 100.0100 ####[facility] [address] [place], [address] RBC (Bld) [#/Vol] 3.27 10*6/uL Low 4.2-5.4 [facility] Comment on above: Order Comment: Comme nts: First day Performed By: #### L 100.0100 ####[facility] [address] [place], [address] RDW SD 41.6 fl Normal 35.1-43.9 [facility] Comment on above: Order Comment: Comme nts: First day Performed By: #### L 100.0100 ####[facility] [address] [place], [address] WBC (Bld) [#/Vol] 15.0 10*3/uL High 4.4-11.0 [facility] Comment on above: Order Comment: Comme nts: First day Performed By: #### L 100.0100 ####[facility] [address] [place], [address] CBC W/Diff, Automatedon 08-07 Absolute Lymph 1.60 X10 3/uL Normal 0.83-4.51 [facility] Comment on above: Performed By: #### L 100.0100, BTS ####[facility] [address] [place], [address] Absolute Neut 7.2 X10 3/uL Normal 2.0-7.7 [facility] Comment on above: Performed By: #### L 100.0100, BTS ####[facility] [address] [place], [address] Basophils/100 WBC (Bld) 0.4 % Normal 0-1 [facility] Comment on above: Performed By: #### L 100.0100, BTS ####[facility] [address] [place], [address] Eosinophils/100 WBC (Bld) 5.7 % High 0-5 [facility] Comment on above: Performed By: #### L 100.0100, BTS ####[facility] [address] [place], [address] Erythrocyte distribution width (RBC) [Ratio] 13.5 % Normal 11.6-14.6 [facility] Comment on above: Performed By: #### L 100.0100, BTS ####[facility] [address] [place], [address] Hematocrit (Bld) [Volume fraction] 32.6 % Low 37-47 [facility] Comment on above: Performed By: #### L 100.0100, BTS ####[facility] [address] [place], [address] Hemoglobin (Bld) [Mass/Vol] 10.6 g/dL Low 12.0-15.0 [facility] Comment on above: Performed By: #### L 100.0100, BTS ####[facility] [address] [place], [address] IG% 0.700 Normal 0.0-0.9 [facility] Comment on above: Result Comment: IG% - Immature Granulocytes (promyelocytes, myelocytes and metamyelocytes) > 1% indicates that a LEFT SHIFT is Present. Performed By: #### L 100.0100, BTS ####[facility] [address], [address] Lymphocytes/100 WBC (Bld) 15.4 % Low 19-41 [facility] Comment on above: Performed By: #### L 100.0100, BTS ####[facility] [address] [place], [address] MCH (RBC) [Entitic mass] 26.9 pg Low 27.0-32.0 [facility] Comment on above: Performed By: #### L 100.0100, BTS ####[facility] [address] [place], [address] MCHC (RBC) [Mass/Vol] 32.5 g/dL Normal 32-36 [facility] Comment on above: Performed By: #### L 100.0100, BTS ####[facility] [address] [place], [address] MCV (RBC) [Entitic vol] 82.7 fL Normal 81-99 [facility] Comment on above: Performed By: #### L 100.0100, BTS ####[facility] [address] [place], [address] Monocytes/100 WBC (Bld) 8.3 % Normal 0-10 [facility] Comment on above: Performed By: #### L 100.0100, BTS ####[facility] [address] [place], [address] Neutrophils/100 WBC (Bld) 69.5 % Normal 47-70 [facility] Comment on above: Performed By: #### L 100.0100, BTS ####[facility] [address] [place], [address] Nucleated RBC (Bld) [#/Vol] 0 10*3/uL Normal 0-5 [facility] Comment on above: Performed By: #### L 100.0100, BTS ####[facility] [address] [place], [address] Platelet mean volume (Bld) [Entitic vol] 12.5 fL High 6.2-12.0 [facility] Comment on above: Performed By: #### L 100.0100, BTS ####[facility] [address] [place], [address] Platelets (Bld) [#/Vol] 224 10*3/uL Normal 150-450 [facility] Comment on above: Performed By: #### L 100.0100, BTS ####[facility] [address] [place], [address] RBC (Bld) [#/Vol] 3.94 10*6/uL Low 4.2-5.4 [facility] Comment on above: Performed By: #### L 100.0100, BTS ####[facility] [address] [place], [address] RDW SD 40.6 fl Normal 35.1-43.9 [facility] Comment on above: Performed By: #### L 100.0100, BTS ####[facility] [address] [place], [address] WBC (Bld) [#/Vol] 10.4 10*3/uL Normal 4.4-11.0 [facility] Comment on above: Performed By: #### L 100.0100, BTS ####[facility] [address] [place], [address] H AND P Exam - OB/GYNon 08-07 H&P Exam - LEAD CUSTODIAN [facility] Medical Records Department [address] [place] [address] H P Exam - LEAD CUSTODIAN 08/24/23 0851 MR#: [id number] Acct: [id number] Name: STACI PRICE Rep #: [id number] : 2000 23 From: Elvira Guillory CNM PCP: Care Physician,No Primary Status:ADM IN [id number] - General General Date of Admission: 08/24/23 HPI Narrative STACI PRICE, is a 23 F who presents for elective induction of labor at 39w3d. . Maternal Data Information KIARA Calculator Estimated Delivery Date Method Current WG Current Estimate 08/28/23 Manual 39w 3d PFSCOX BRANSON Medical History Acid reflux Asthma Preeclampsia Home Medications ???Medication ???Instructions ???Recorded ???Last Taken ???Type aspirin 81 mg tablet,delayed mg 06/13/23 06/12/23 History release vit no.95-ferrous 1 tab PO DAILY 06/13/23 Unknown History fumarate 28 mg-folic acid 800 mcg tablet () Allergy/AdvReac Type Severity Reaction Status Date / Time No Known Allergies Allergy Verified 06/13/23 04:43 Social History Smoking Status: Former smoker History Elective abortions Hx Para 2 Spontaneous abortions Hx # Term Pregnancies Ectopic pregnancies Hx # Pregnancies Multiple births # of living children NST FHR Rate Baby A Baseline: 155 Variability:: Minimal Accelerations:: 15 x 15 Decelerations:: None FHR Category:: Category II Uterine Activity:: Irregular ROS Constitutional Constitutional: Reports systems reviewed and no addt'l complaints, except as documented; Denies headache(s) Eyes Eyes: Denies acute decrease in peripheral vision, blurry vision or change in vision ENT HEENT: Reports systems reviewed and no addt'l complaints, except as documented Cardiovascular Cardiovascular: Denies chest pain or dizziness Respiratory/Chest Respiratory/Chest: Denies cough, dyspnea, dyspnea on exertion, shortness of breath at rest or shortness of breath with exertion Gastrointestinal Gastrointestinal: Denies abdominal pain, diarrhea, nausea or vomiting Genitourinary Genitourinary: Denies abdominal discomfort Musculoskeletal Musculoskeletal: Denies limited range of motion Integumentary Integumentary: Reports systems reviewed and no addt'l complaints, except as documented Neurologic Neurologic: Reports systems reviewed and no addt'l complaints, except as documented Psychiatric Psychiatric: Reports systems reviewed and no addt'l complaints, except as documented Endocrine Endocrinology: Reports systems reviewed and no addt'l complaints, except as documented Hematologic/Lymphat ic Hematologic/Lymphat ic: Reports systems reviewed and no addt'l complaints, except as documented Allergic/Immunologi c Allergic/Immunologi c: Reports systems reviewed and no addt'l complaints, except as documented Vital Signs Vital Signs Vital Signs: 08/24/23 07:14 08/24/23 07:14 08/24/23 07:19 Temperature Temperature Source Pulse Rate 127 H 120 H Respiratory Rate Blood Pressure 142/89 H BP Systolic 142 BP Diastolic 89 Pulse Ox 08/24/23 07:19 08/24/23 08:35 08/24/23 08:35 Temperature Temperature Source Pulse Rate 103 H Respiratory Rate Blood Pressure 128/74 H BP Systolic 128 BP Diastolic 74 Pulse Ox 97 08/24/23 08:35 08/24/23 08:35 08/24/23 08:35 Temperature 98.6 F Temperature Source Temporal Pulse Rate Respiratory Rate Blood Pressure BP Systolic BP Diastolic Pulse Ox 97 08/24/23 08:35 Temperature Temperature Source Pulse Rate Respiratory Rate 18 Blood Pressure BP Systolic BP Diastolic Pulse Ox Weight Weight: 196 lb 10.437 oz Body Mass Index (BMI) 32.7 Physical Exam Const alert and oriented x3 General Appearance: cooperative Orientation / Consciousness: awake, oriented to person, oriented to place and oriented to time Exam Limitations: no limitations HEENT normocephalic Head and Scalp: normal to inspection, normocephalic and atraumatic Face and Sinus: normal facial exam Eyes General Eye: normal appearance of both eyes Neck full ROM Chest Chest: symmetrical chest wall rise Resp normal respiratory effort and normal air movement Auscultation: clear to auscultation bilaterally Cardio regular rate, regular rhythm, S1 normal heart sound, S2 normal heart sound, no murmurs, no rub, no gallops and no clicks GI normal to inspection, nondistended, normoactive bowel sounds and non-tender appearance of the vagina normal Bladder / Kidney Exam: no CVA tenderness Manual OB Exam: estimated gestati (more content not included)... Normal [facility] L509.8000on 08-24-2023 Syphilis Abs Non-Reactive Normal [facility] Comment on above: Performed By: #### L 509.8000 #### [facility] Laboratory [address] [facility] [place], [address] Operative Reporton 4 Operative Report [facility] Medical Records Department [address] [place] [address] Operative Report 08/24/23 2359 MR#: [id number] Acct: [id number] Name: STACI PRICE Rep #: [id number] : 2000 23 From: Elvira Guillory CNM PCP: Care Physician,No Primary Status:ADM IN Location: [id number] Assessment Plan (1) Shoulder dystocia, delivered: Maternal Data Information KIARA Calculator Estimated Delivery Date Method Current WG Current Estimate 08/28/23 Manual 39w 4d Vaginal Delivery Maternal Presentation Maternal Presentation: Elective Induction Type of Induction: Pitocin and Vaughn Bulb Operative Information Date of Procedure: 08/25/23 Pre-Operative Diagnosis: Elective Induction of Labor Post-Operative Diagnosis: , shoulder dystocia Surgery / Procedure Performed: Spontaneous Vaginal Delivery Type of Anesthesia: Epidural Estimated Blood Loss: 350 ml Time of Delivery: 23:44 Findings Description of Procedure: Progressed to complete with urge to push. Epidural for pain management. of viable female over intact perineum. APGARS 7,9 respectively. head delivered with body not forthcoming.Shoulde r dystocia noted and staff called to room. McRobert's Position with suprapubic pressure. Attempted to remove posterior arm but not forthcoming. Tamayo maneuver and shoulder released, delivered. Shoulder dystocia lasted approximately 1minute 23 seconds. Placed on maternal abdomen, Mouth and nares suctioned for secretions. Cord clamped and cut and passed to awaiting nursery staff. Poor tone and weak cry. Pitocin started for active 3rd stage management. Placenta delivered intact via mary, 3 vessel cord intact. Perineum inspected and revealed intact. Fundus firm and hemostasis achieved. EBL 350ml. Mom and baby stable, planning to bottlefeed. Family bonding well. notified of delivery. Presentation: Vertex and DEBO Amniotic Membrane Rupture Type: Artificial Amniotic Fluid Description: Clear Placental Delivery Description: Spontaneous Placenta Disposition: [facility] Cord Vessel Description: 3 Vessels Cord Entanglement: None A Gender: Female (1 minute): 7 (5 minute): 9 Delayed Cord Clamping: No Post Vaginal Delivery Medications Given After Delivery: IV Pitocin Episiotomy Description: None Laceration: None Complication Complications: - (Shoulder Dystocia) 08/25/23 0007 Cosigner Signature (if applicable): CC: NINO Guillory; No Primary Care Physician Signed Normal [facility] Type AND Screenon 08-24-2023 ABO and Rh group Nom (Bld) Blood group A Rh(D) positive Normal [facility] Comment on above: Order Comment: Labor Performed By: #### L 100.0100, BTS ####[facility] [address] [place], [address] Ur Drg Scn w/Rflx AMPH Confi rmon 08-24-2023 Amphetamines Ql (U) Negative Normal <1000 ng/mL [facility] Comment on above: Performed By: #### L 849.3769 #### [facility] Laboratory [address] [place], [address] BARBITIURATES Negative Normal < 200 ng/mL [facility] Comment on above: Performed By: #### L 505.5002 #### [facility] [address] [place], [address] BENZODIAZIPINE Negative Normal < 200 ng/mL [facility] Comment on above: Performed By: #### L 505.5002 #### [facility] [address] [place], [address] Cocaine Ql (U) Negative Normal < 300 ng/mL [facility] Comment on above: Performed By: #### L 505.5002 #### [facility] [address] [place], [address] ECSTACY Negative Normal < 500 ng/mL [facility] Comment on above: Performed By: #### L 505.5002 #### [facility] [address] [place], [address] Methadone Ql (U) Negative Normal < 300 ng/mL [facility] Comment on above: Performed By: #### L 505.5002 #### [facility] [address] [place], [address] Opiates Ql (U) Negative Normal < 300 ng/mL [facility] Comment on above: Performed By: #### L 505.5002 #### [facility] [address] [place], [address] PCP Negative Normal < 25 ng/mL [facility] Comment on above: Performed By: #### L 505.5002 #### [facility] [address] [place], [address] THC Negative Normal < 50 ng/mL [facility] Comment on above: Performed By: #### L 505.5002 #### [facility] [address] [place], [place], [address] VISTA UDS PH 5 Normal [facility] Comment on above: Performed By: #### L 505.5002 #### [facility] [address] [place], [place], [address] URINE OB DIP B/Oon 4 Glucose Ql (U) Negative Neg mg/dL [facility] Interpretation and review of laboratory results Normal [facility] Protein.monoclonal (U) [Mass/Vol] trace Neg mg/dL [facility] URINE OB DIP B/Oon 4 Glucose Ql (U) Negative Neg mg/dL [facility] Interpretation and review of laboratory results Normal [facility] Protein.monoclonal (U) [Mass/Vol] Negative Neg mg/dL [facility] URINE OB DIP B/Oon 4 Glucose Ql (U) Negative Neg mg/dL [facility] Interpretation and review of laboratory results Normal [facility] Protein.monoclonal (U) [Mass/Vol] Negative Neg mg/dL [facility] URINE OB DIP B/Oon 4 Glucose Ql (U) Negative Neg mg/dL [facility] Interpretation and review of laboratory results Normal [facility] Protein.monoclonal (U) [Mass/Vol] Negative Neg mg/dL [facility] Basophil percentageOrdered B y: Lou Byers on 04-26-2023 Chloride [Moles/Vol] 109 mmol/L 98-107 [facility] Glucose [Mass/Vol] 96 mg/dL 74-[address] [facility] Potassium [Moles/Vol] 4.2 mmol/L 3.5-5.1 [facility] Comment on above: Moderate Hemolysis, Result may be falsely increased. Sodium [Moles/Vol] 133 mmol/L 136-[address] [facility] Laboratory - Chemistry and C hemistry - challengeOrdered By: Lou Byers on 04-26-2023 CO2 [Moles/Vol] 17.0 mmol/L 21.0-32.0 [facility] Urea nitrogen/Creatinine [Mass ratio] 13.1 mg/mg 10-20 [facility] No Panel InformationOrdered By: Lou Byers on 04-26-2023 Estimated Creatinine Clearance Calc 176.16 ml/min [facility] Estimated GFR (MDRD) Amer 184 mL/min >60 [facility] Comment on above: GFR Calc Estimated GFR (MDRD) Non-Af Amer 152 mL/min >60 [facility] Comment on above: Non- GFR Calc Serum or plasma calcium juliana urement (mass/volume)Ordered By: Lou Byers on 04-26-2023 Calcium [Mass/Vol] 9.2 mg/dL 8.5-10.[address] [facility] Serum or plasma creatinine m easurement (mass/volume)Ordered By: Lou Byers on 04-26-2023 Creatinine [Mass/Vol] 0.53 mg/dL 0.55-1.02 [facility] Comment on above: The validity of the calculated GFR & GFRAA in patients over 70 years has not been determined. Clinical correlation is essential. Serum or plasma urea nitroge n measurement (mass/volume)Ordered By: Lou Byers on 04-26-2023 Urea nitrogen [Mass/Vol] 7 mg/dL 09-23 [facility] Thin prep Papanicolaou smear with manual screeningOrdered By: Lou Byers on 04-26-2023 Thin prep Papanicolaou smear with manual screening 7 - [facility] NUCHAL TRANSLUCENCY WHIon [facility] URINE OB DIP B/Oon 3 Glucose Ql (U) Negative Neg mg/dL [facility] Protein.monoclonal (U) [Mass/Vol] Negative Neg mg/dL [facility] Absolute lymphocyte countOrd ered By: Gaetano Boyer on 02-04-2023 Lymphocytes Auto (Unsp spec) [#/Vol] 1.46 10*3/uL 0.83-4.51 [facility] Basophil percentageOrdered B y: Gaetano Boyer on 02-04-2023 Basophil percentage 0-5 SEEN /hpf 0-5 [facility] Basophils/100 WBC (Bld) 0.2 % 0-1 [facility] Chloride [Moles/Vol] 108 mmol/L 98-107 [facility] Eosinophils/100 WBC (Bld) 1.5 % 0-5 [facility] Glucose [Mass/Vol] 116 mg/dL 74-[address] [facility] Comment on above: Fasting Glucose resu lt from 100 to 125 mg/dL suggests IMPAIRED HOMEOSTASIS per A.D.A. criteria. Neutrophils (Bld) [#/Vol] 6.8 10*3/uL 2.0-7.7 [facility] Neutrophils/100 WBC (Bld) 77.3 % 47-70 [facility] Potassium [Moles/Vol] 3.8 mmol/L 3.5-5.1 [facility] Sodium [Moles/Vol] 137 mmol/L 136-[address] [facility] WBC (Bld) [#/Vol] 8.8 10*3/uL 4.4-11.[address] [facility] Bilirubin Test strip Ql (U)O rdered By: Gaetano Boyer on 02-04-2023 Bilirubin Ql (U) Negative Negative [facility] Blood erythrocytes count (nu mber/volume)Ordered By: Gaetano Boyer on 02-04-2023 RBC (Bld) [#/Vol] 4.70 10*6/uL 4.2-5.4 [facility] Blood hemoglobin measurement (mass/volume)Ordered By: Gaetano Boyer on 02-04-2023 Hemoglobin (Bld) [Mass/Vol] 13.4 g/dL 12.0-15.0 [facility] Blood lymphocytes/100 leukoc ytesOrdered By: Gaetano Boyer on 02-04-2023 Lymphocytes/100 WBC (Bld) 16.5 % 19-41 [facility] Blood monocytes/100 leukocyt esOrdered By: Gaetano Boyer on 02-04-2023 Monocytes/100 WBC (Bld) 4.3 % 0-10 [facility] Blood platelet mean volumeOr dered By: Gaetano Boyer on 02-04-2023 Platelet mean volume (Bld) [Entitic vol] 11.9 fL 6.2-12.0 [facility] Determination of erythrocyte mean corpuscular volume (MCV)Ordered By: Gaetano Boyer on 02-04-2023 MCV (RBC) [Entitic vol] 84.9 fL 81-99 [facility] Hematocrit Auto (Bld) [Volum e fraction]Ordered By: Gaetano Boyer on 02-04-2023 Hematocrit (Bld) [Volume fraction] 39.9 % 37-47 [facility] Ketones Test strip Ql (U)Ord ered By: Gaetano Boyer on 02-04-2023 Ketones Ql (U) Negative Negative [facility] Laboratory - Chemistry and C hemistry - challengeOrdered By: Gaetano Boyer on 02-04-2023 CO2 [Moles/Vol] 25.0 mmol/L 21.0-32.0 [facility] Urea nitrogen/Creatinine [Mass ratio] 9.1 mg/mg 10-20 [facility] Laboratory - Hematology and Cell countsOrdered By: [facility] Boyer on 02-04-2023 Erythrocyte distribution width (RBC) [Entitic vol] 42.9 fL 35.1-43.9 [facility] Erythrocyte distribution width (RBC) [Ratio] 13.7 % 11.6-14.6 [facility] Immature granulocytes/100 WBC (Bld) 0.200 % 0.0-0.9 [facility] Comment on above: IG% - Immature Granu locytes (promyelocytes, myelocytes and metamyelocytes) > 1% indicates that a LEFT SHIFT is Present. MCH (RBC) [Entitic mass] 28.5 pg 27.0-32.0 [facility] Nucleated RBC/100 WBC (Bld) [Ratio] 0 % 0-5 [facility] MCHC Auto (RBC) [Mass/Vol]Or dered By: Gaetano Boyer on 02-04-2023 MCHC (RBC) [Mass/Vol] 33.6 g/dL 32-36 [facility] Mucus LM Ql (Urine sed)Order ed By: Gaetano Boyer on 02-04-2023 Mucus Ql (Urine sed) 1+ /hpf [facility] Nitrite Test strip Ql (U)Ord ered By: Gaetano Boyer on 02-04-2023 Nitrite Ql (U) Negative Negative [facility] No Panel InformationOrdered By: Gaetano Boyer on 02-04-2023 Estimated Creatinine Clearance Calc 145.59 ml/min [facility] Estimated GFR (MDRD) Amer 179 mL/min >60 [facility] Comment on above: GFR Calc Estimated GFR (MDRD) Non-Af Amer 148 mL/min >60 [facility] Comment on above: Non- GFR Calc Platelets bldOrdered By: Caren angeles Merlin on 02-04-2023 Platelets (Bld) [#/Vol] 237 10*3/uL 150-450 [facility] Protein Test strip Ql (U)Ord ered By: Rem Ungmarcin on 02-04-2023 Protein Ql (U) 15 mg/dl Negative [facility] Serum or plasma calcium juliana urement (mass/volume)Ordered By: Rem Ungmarcin on 02-04-2023 Calcium [Mass/Vol] 9.3 mg/dL 8.5-10.[address] [facility] Serum or plasma creatinine m easurement (mass/volume)Ordered By: Rem Ungmarcin on 02-04-2023 Creatinine [Mass/Vol] 0.55 mg/dL 0.55-1.02 [facility] Comment on above: The validity of the calculated GFR & GFRAA in patients over 70 years has not been determined. Clinical correlation is essential. Serum or plasma urea nitroge n measurement (mass/volume)Ordered By: Gaetano Narayanmarcin on 02-04-2023 Urea nitrogen [Mass/Vol] 5 mg/dL 7-18 [facility] Squamous epithelial cells de tection in urine sediment by light microscopyOrdered By: Gaetano Narayanmarcin on 02-04-2023 Epithelial cells.squamous LM Ql (Urine sed) 0-5 SEEN /hpf 5-10 [facility] Thin prep Papanicolaou smear with manual screeningOrdered By: Remus Narayanmarcin on 02-04-2023 Thin prep Papanicolaou smear with manual screening 4 5-15 [facility] Urine blood detectionOrdered By: Remus Ungmarcin on 02-04-2023 RBC Ql (U) Negative Negative [facility] RBC Ql (U) 0 SEEN /hpf 0-5 [facility] Urine clarityOrdered By: Rem Ungmarcin on 02-04-2023 Clarity (U) Clear Clear [facility] Urine color determinationOrd ered By: Remus Ungmarcin on 02-04-2023 Color (U) Yellow Yellow [facility] Urine glucose detectionOrder ed By: Remus Ungmarcin on 02-04-2023 Glucose Ql (U) Normal mg/dl Normal [facility] Urine leukocyte esterase det ection by dipstickOrdered By: Remus Merlin on 02-04-2023 Leukocyte esterase Test strip Ql (U) 25 /ul Negative [facility] Urine pHOrdered By: Remus Un gur on 02-04-2023 pH (U) 7.0 [pH] 5.0 - 8.0 [facility] Urine sediment bacteria coun t by microscopy (number/high power field)Ordered By: Remus Merlin on 02-04-2023 Bacteria LM.HPF (Urine sed) [#/Area] RARE /hpf None Seen [facility] Urine specific gravity measu rementOrdered By: Remus Merlin on 02-04-2023 Specific gravity (U) [Rel density] 1.015 1.002-1.030 [facility] Urobilinogen Auto test strip Ql (U)Ordered By: Remus Merlin on 02-04-2023 Urobilinogen Ql (U) 1 mg/dl Normal [facility] BACTERIAL VAGINOSIS NAATon 1 03-31-2022 Lactobacillus crispatus+gasseri+jense sheng + Gardnerella vaginalis + Atopobium vaginae rRNA SANDIP+probe Ql (Vag fld) Positive Abnormal Negative for bacterial vaginosis [facility] C. trachomatis+N. gonorrhoea e DNA SANDIP+probe Ql (Unsp spec)on 01-29-2023 C. trachomatis rRNA SANDIP+probe Ql (Unsp spec) Positive Abnormal Negative for Chlamydia trachomatis by amplificaton [facility] N. gonorrhoeae rRNA SANDIP+probe Ql (Unsp spec) Negative Negative for Neisseria gonorrhoeae by amplification [facility] ALFRED/TRICHOMONAS NAATon 1 03-31-2022 C. glabrata RNA SANDIP+probe Ql (Vag fld) Negative Negative for Alfred glabrata [facility] Alfred sp DNA SANDIP+probe Ql (Vag fld) Positive Abnormal Negative for Alfred species [facility] T. vaginalis DNA SANDIP+probe Ql (Unsp spec) Negative Negative for Trichomonas vaginalis by amplification [facility] URINE CULTUREon 01-29-2023 Bacteria identified Cx Nom (U) 10,000 -<50,000 CFU/ml Normal urogenital harriett [facility] No Panel Informationon 01-28 [facility] Basophil percentageOrdered B y: Remus Ungmarcin on 01-25-2023 Basophil percentage 25-50 SEEN /hpf 0-5 [facility] Chloride [Moles/Vol] 106 mmol/L 98-107 [facility] Glucose [Mass/Vol] 99 mg/dL 74-[address] [facility] Potassium [Moles/Vol] 3.8 mmol/L 3.5-5.1 [facility] Sodium [Moles/Vol] 135 mmol/L 136-[address] [facility] WBC (Bld) [#/Vol] 7.7 10*3/uL 4.4-11.[address] [facility] Bilirubin Test strip Ql (U)O rdered By: Gaetano Boyer on 01-25-2023 Bilirubin Ql (U) Negative Negative [facility] Blood erythrocytes count (nu mber/volume)Ordered By: Gaetano Boyer on 01-25-2023 RBC (Bld) [#/Vol] 4.52 10*6/uL 4.2-5.4 [facility] Blood hemoglobin measurement (mass/volume)Ordered By: Gaetano Boyer on 01-25-2023 Hemoglobin (Bld) [Mass/Vol] 13.2 g/dL 12.0-15.0 [facility] Blood platelet mean volumeOr dered By: Gaetano Boyer on 01-25-2023 Platelet mean volume (Bld) [Entitic vol] 12.5 fL 6.2-12.0 [facility] Culture, urineOrdered By: Rola Boyer on 01-25-2023 Bacteria identified Cx Nom (U) Positive [facility] Determination of erythrocyte mean corpuscular volume (MCV)Ordered By: Gaetano Boyer on 01-25-2023 MCV (RBC) [Entitic vol] 84.5 fL 81-99 [facility] Hematocrit Auto (Bld) [Volum e fraction]Ordered By: Gaetano Boyer on 01-25-2023 Hematocrit (Bld) [Volume fraction] 38.2 % 37-47 [facility] Ketones Test strip Ql (U)Ord ered By: Gaetano Boyer on 01-25-2023 Ketones Ql (U) Negative Negative [facility] Laboratory - Chemistry and C hemistry - challengeOrdered By: Gaetano Boyer on 01-25-2023 CO2 [Moles/Vol] 23.0 mmol/L 21.0-32.0 [facility] Urea nitrogen/Creatinine [Mass ratio] 11.4 mg/mg 10-20 [facility] Laboratory - Hematology and Cell countsOrdered By: Gaetano Boyer on 01-25-2023 Erythrocyte distribution width (RBC) [Entitic vol] 42.5 fL 35.1-43.9 [facility] Erythrocyte distribution width (RBC) [Ratio] 13.9 % 11.6-14.6 [facility] MCH (RBC) [Entitic mass] 29.2 pg 27.0-32.0 [facility] MCHC Auto (RBC) [Mass/Vol]Or dered By: Gaetano Boyer on 01-25-2023 MCHC (RBC) [Mass/Vol] 34.6 g/dL 32-36 [facility] Mucus LM Ql (Urine sed)Order ed By: Gaetaon Boyer on 01-25-2023 Mucus Ql (Urine sed) 0 SEEN /hpf [facility] Nitrite Test strip Ql (U)Ord ered By: Gaeatno Boyer on 01-25-2023 Nitrite Ql (U) Negative Negative [facility] No Panel InformationOrdered By: Gaetano Boyer on 01-25-2023 Urine Transitional Epithelial Cells 0-5 SEEN /hpf 0-5 [facility] Estimated Creatinine Clearance Calc 131.27 ml/min [facility] Estimated GFR (MDRD) Amer 157 mL/min >60 [facility] Comment on above: GFR Calc Estimated GFR (MDRD) Non-Af Amer 130 mL/min >60 [facility] Comment on above: Non- GFR Calc Platelets bldOrdered By: Caren Boyer on 01-25-2023 Platelets (Bld) [#/Vol] 233 10*3/uL 150-450 [facility] Protein Test strip Ql (U)Ord ered By: Gaetano Boyer on 01-25-2023 Protein Ql (U) 30 mg/dl Negative [facility] Serum or plasma calcium juliana urement (mass/volume)Ordered By: Gaetano Boyer on 01-25-2023 Calcium [Mass/Vol] 9.2 mg/dL 8.5-10.[address] [facility] Serum or plasma creatinine m easurement (mass/volume)Ordered By: Gaetano Boyer on 01-25-2023 Creatinine [Mass/Vol] 0.61 mg/dL 0.55-1.02 [facility] Comment on above: The validity of the calculated GFR & GFRAA in patients over 70 years has not been determined. Clinical correlation is essential. Serum or plasma urea nitroge n measurement (mass/volume)Ordered By: Gaetano Boyer on 01-25-2023 Urea nitrogen [Mass/Vol] 7 mg/dL 7-18 [facility] Squamous epithelial cells de tection in urine sediment by light microscopyOrdered By: Gaetano Boyer on 01-25-2023 Epithelial cells.squamous LM Ql (Urine sed) 0-5 SEEN /hpf 5-10 [facility] Thin prep Papanicolaou smear with manual screeningOrdered By: Gaetano Boyer on 01-25-2023 Thin prep Papanicolaou smear with manual screening 6 5-15 [facility] Urine blood detectionOrdered By: Gaetano Boyer on 01-25-2023 RBC Ql (U) 25 /ul Negative [facility] RBC Ql (U) 0 SEEN /hpf 0-5 [facility] Urine clarityOrdered By: Caren Boyer on 01-25-2023 Clarity (U) Clear Clear [facility] Urine color determinationOrd ered By: Gaetano Boyer on 01-25-2023 Color (U) Yellow Yellow [facility] Urine glucose detectionOrder ed By: Gaetano Boyer on 01-25-2023 Glucose Ql (U) Normal mg/dl Normal [facility] Urine leukocyte esterase det ection by dipstickOrdered By: Gaetano Boyer on 01-25-2023 Leukocyte esterase Test strip Ql (U) 500 /ul Negative [facility] Urine pHOrdered By: Gaetano Schafer gur on 01-25-2023 pH (U) 7.0 [pH] 5.0 - 8.0 [facility] Urine sediment bacteria coun t by microscopy (number/high power field)Ordered By: Gaetano Boyer on 01-25-2023 Bacteria LM.HPF (Urine sed) [#/Area] 3 /[HPF] None Seen [facility] Urine specific gravity measu rementOrdered By: Gaetano Boyer on 01-25-2023 Specific gravity (U) [Rel density] 1.010 1.002-1.030 [facility] Urobilinogen Auto test strip Ql (U)Ordered By: Gaetano Boyer on 01-25-2023 Urobilinogen Ql (U) 4 mg/dl Normal [facility] Glucose Glucometer (BldC) [M ass/Vol]Ordered By: Kylee Solis on 10-07-2022 Glucose [Mass/Vol] 94 mg/dL 74-[address] [facility] Comment on above: MANAGEMENT OF PATIEN T CARE PER NURSING PROTOCOL Absolute lymphocyte countOrd ered By: Kenton Smith on 06-28-2022 Lymphocytes Auto (Unsp spec) [#/Vol] 4.70 10*3/uL 0.83-4.51 [facility] Basophil percentageOrdered B y: Kenton Smith on 06-28-2022 Basophils/100 WBC (Bld) 0.6 % 0-1 [facility] Bilirubin [Mass/Vol] 0.20 mg/dL 0.20-1.00 [facility] Comment on above: For patients on eltr ombopag therapy, use of Dimension [place] TBIL is not recommended. Chloride [Moles/Vol] 109 mmol/L 98-107 [facility] Eosinophils/100 WBC (Bld) 5.7 % 0-5 [facility] Glucose [Mass/Vol] 135 mg/dL 74-[address] [facility] Comment on above: Fasting Glucose resu lt greater than or equal to 126 mg/dL suggests DIABETES MELLITUS per A.D.A. criteria. Neutrophils (Bld) [#/Vol] 5.7 10*3/uL 2.0-7.7 [facility] Neutrophils/100 WBC (Bld) 46.6 % 47-70 [facility] Potassium [Moles/Vol] 3.4 mmol/L 3.5-5.1 [facility] Protein [Mass/Vol] 7.5 g/dL 6.4-8.[address] [facility] Sodium [Moles/Vol] 138 mmol/L 136-[address] [facility] WBC (Bld) [#/Vol] 12.2 10*3/uL 4.4-11.0 [facility] Beta hCG serum qualOrdered B y: Kenton Smith on 06-28-2022 Beta HCG ( test) Ql Negative [facility] Blood erythrocytes count (nu mber/volume)Ordered By: Kenton Smith on 06-28-2022 RBC (Bld) [#/Vol] 4.50 10*6/uL 4.2-5.4 [facility] Blood hemoglobin measurement (mass/volume)Ordered By: Kenton Smith on 06-28-2022 Hemoglobin (Bld) [Mass/Vol] 12.3 g/dL 12.0-15.0 [facility] Blood lymphocytes/100 leukoc ytesOrdered By: Kenton Smith on 06-28-2022 Lymphocytes/100 WBC (Bld) 38.7 % 19-41 [facility] Blood monocytes/100 leukocyt esOrdered By: Kenton Smith on 06-28-2022 Monocytes/100 WBC (Bld) 8.1 % 0-10 [facility] Blood platelet mean volumeOr dered By: Kenton Smith on 06-28-2022 Platelet mean volume (Bld) [Entitic vol] 11.8 fL 6.2-12.0 [facility] Determination of erythrocyte mean corpuscular volume (MCV)Ordered By: Kenton Smith on 06-28-2022 MCV (RBC) [Entitic vol] 84.0 fL 81-99 [facility] Direct bilirubinOrdered By: Kenton Smith on 06-28-2022 Bilirubin.direct [Mass/Vol] 0.13 mg/dL 0.00-0.30 [facility] Hematocrit Auto (Bld) [Volum e fraction]Ordered By: Kenton Smith on 06-28-2022 Hematocrit (Bld) [Volume fraction] 37.8 % 37-47 [facility] Laboratory - Chemistry and C hemistry - challengeOrdered By: Kenton Smith on 06-28-2022 ALP [Catalytic activity/Vol] 103 U/L 45-117 [facility] ALT [Catalytic activity/Vol] 36 U/L 13-56 [facility] CO2 [Moles/Vol] 26.0 mmol/L 21.0-32.0 [facility] Globulin (S) [Mass/Vol] 3.8 g/dL 2.2-4.2 [facility] Lipase [Catalytic activity/Vol] 43 U/L 13-75 [facility] Comment on above: Please note:LIPASE r evised reference range effective 22. New Lipase methodology. Expected to produce lower values than the previous assay method. NEW Reference Range: 13 - 75 U/L Urea nitrogen/Creatinine [Mass ratio] 13.9 mg/mg 10-20 [facility] Laboratory - Hematology and Cell countsOrdered By: Kenton Smith on 06-28-2022 Erythrocyte distribution width (RBC) [Entitic vol] 46.3 fL 35.1-43.9 [facility] Erythrocyte distribution width (RBC) [Ratio] 15.2 % 11.6-14.6 [facility] Immature granulocytes/100 WBC (Bld) 0.300 % 0.0-0.9 [facility] Comment on above: IG% - Immature Granu locytes (promyelocytes, myelocytes and metamyelocytes) > 1% indicates that a LEFT SHIFT is Present. MCH (RBC) [Entitic mass] 27.3 pg 27.0-32.0 [facility] Nucleated RBC/100 WBC (Bld) [Ratio] 0 % 0-5 [facility] MCHC Auto (RBC) [Mass/Vol]Or dered By: Kenton Smith on 06-28-2022 MCHC (RBC) [Mass/Vol] 32.5 g/dL 32-36 [facility] No Panel InformationOrdered By: Kenton Smith on 06-28-2022 Estimated Creatinine Clearance Calc 85.19 ml/min [facility] Estimated GFR (MDRD) Amer 97 mL/min >60 [facility] Comment on above: GFR Calc Estimated GFR (MDRD) Non-Af Amer 80 mL/min >60 [facility] Comment on above: Non- GFR Calc Platelets bldOrdered By: Nico Smith on 06-28-2022 Platelets (Bld) [#/Vol] 276 10*3/uL 150-450 [facility] Serum or plasma albumin juliana urement (mass/volume)Ordered By: Kenton Smith on 06-28-2022 Albumin [Mass/Vol] 3.7 g/dL 3.2-5.[address] [facility] Serum or plasma calcium juliana urement (mass/volume)Ordered By: Kenton Smith on 06-28-2022 Calcium [Mass/Vol] 9.2 mg/dL 8.5-10.[address] [facility] Serum or plasma creatinine m easurement (mass/volume)Ordered By: Kenton Smith on 06-28-2022 Creatinine [Mass/Vol] 0.94 mg/dL 0.55-1.02 [facility] Comment on above: The validity of the calculated GFR & GFRAA in patients over 70 years has not been determined. Clinical correlation is essential. Serum or plasma urea nitroge n measurement (mass/volume)Ordered By: Kenton Smith on 06-28-2022 Urea nitrogen [Mass/Vol] 13 mg/dL 7-18 [facility] Thin prep Papanicolaou smear with manual screeningOrdered By: Kenton Smith on 06-28-2022 Thin prep Papanicolaou smear with manual screening 35 U/L 15-37 [facility] Thin prep Papanicolaou smear with manual screening 3 5-15 [facility] Absolute lymphocyte countOrd ered By: Dr. Byrne on 05-27-2022 Lymphocytes Auto (Unsp spec) [#/Vol] 3.03 10*3/uL 0.83-4.51 [facility] Basophil percentageOrdered B y: Dr. Byrne on 05-27-2022 Basophils/100 WBC (Bld) 0.7 % 0-1 [facility] Bilirubin [Mass/Vol] 0.40 mg/dL 0.20-1.00 [facility] Comment on above: For patients on eltr ombopag therapy, use of Dimension [place] TBIL is not recommended. Chloride [Moles/Vol] 110 mmol/L 98-107 [facility] Eosinophils/100 WBC (Bld) 7.0 % 0-5 [facility] Glucose [Mass/Vol] 97 mg/dL 74-[address] [facility] Neutrophils (Bld) [#/Vol] 3.3 10*3/uL 2.0-7.7 [facility] Neutrophils/100 WBC (Bld) 43.7 % 47-70 [facility] Potassium [Moles/Vol] 5.0 mmol/L 3.5-5.1 [facility] Comment on above: Moderate Hemolysis, Result may be falsely increased. Protein [Mass/Vol] 8.0 g/dL 6.4-8.[address] [facility] Sodium [Moles/Vol] 138 mmol/L 136-[address] [facility] WBC (Bld) [#/Vol] 7.6 10*3/uL 4.4-11.[address] [facility] Blood erythrocytes count (nu mber/volume)Ordered By: Dr. Byrne on 05-27-2022 RBC (Bld) [#/Vol] 4.86 10*6/uL 4.2-5.4 [facility] Blood hemoglobin measurement (mass/volume)Ordered By: Dr. Byrne on 05-27-2022 Hemoglobin (Bld) [Mass/Vol] 13.2 g/dL 12.0-15.0 [facility] Blood lymphocytes/100 leukoc ytesOrdered By: Dr. Byrne on 05-27-2022 Lymphocytes/100 WBC (Bld) 40.1 % 19-41 [facility] Blood monocytes/100 leukocyt esOrdered By: Dr. Byrne on 05-27-2022 Monocytes/100 WBC (Bld) 8.2 % 0-10 [facility] Blood platelet mean volumeOr dered By: Dr. Byrne on 05-27-2022 Platelet mean volume (Bld) [Entitic vol] 12.3 fL 6.2-12.0 [facility] Determination of erythrocyte mean corpuscular volume (MCV)Ordered By: Dr. Byrne on 05-27-2022 MCV (RBC) [Entitic vol] 86.0 fL 81-99 [facility] Hematocrit Auto (Bld) [Volum e fraction]Ordered By: Dr. Byrne on 05-27-2022 Hematocrit (Bld) [Volume fraction] 41.8 % 37-47 [facility] Laboratory - Chemistry and C hemistry - challengeOrdered By: Dr. Byrne on 05-27-2022 ALP [Catalytic activity/Vol] 98 U/L 45-117 [facility] ALT [Catalytic activity/Vol] 40 U/L 13-56 [facility] CO2 [Moles/Vol] 22.0 mmol/L 21.0-32.0 [facility] Globulin (S) [Mass/Vol] 4.5 g/dL 2.2-4.2 [facility] Lipase [Catalytic activity/Vol] 122 U/L 73-393 [facility] Urea nitrogen/Creatinine [Mass ratio] 14.6 mg/mg 10-20 [facility] Laboratory - Hematology and Cell countsOrdered By: Dr. Byrne on 05-27-2022 Erythrocyte distribution width (RBC) [Entitic vol] 44.4 fL 35.1-43.9 [facility] Erythrocyte distribution width (RBC) [Ratio] 14.3 % 11.6-14.6 [facility] Immature granulocytes/100 WBC (Bld) 0.300 % 0.0-0.9 [facility] Comment on above: IG% - Immature Granu locytes (promyelocytes, myelocytes and metamyelocytes) > 1% indicates that a LEFT SHIFT is Present. MCH (RBC) [Entitic mass] 27.2 pg 27.0-32.0 [facility] Nucleated RBC/100 WBC (Bld) [Ratio] 0 % 0-5 [facility] MCHC Auto (RBC) [Mass/Vol]Or dered By: Dr. Byrne on 05-27-2022 MCHC (RBC) [Mass/Vol] 31.6 g/dL 32-36 [facility] No Panel InformationOrdered By: Dr. Byrne on 05-27-2022 Estimated Creatinine Clearance Calc 93.71 ml/min [facility] Estimated GFR (MDRD) Amer 113 mL/min >60 [facility] Comment on above: GFR Calc Estimated GFR (MDRD) Non-Af Amer 93 mL/min >60 [facility] Comment on above: Non- GFR Calc Troponin I High Sensitivity < 3 pg/mL 3.0-54.0 [facility] Comment on above: Please Note: [place] t Units and Gender Specific Reference Ranges. For more information see Policy Stat Procedure [place] High Sensitivity Troponin (TNIH) and attachments. Platelets bldOrdered By: Dr. Byrne on 05-27-2022 Platelets (Bld) [#/Vol] 192 10*3/uL 150-450 [facility] Serum or plasma albumin juliana urement (mass/volume)Ordered By: Dr. Byrne on 05-27-2022 Albumin [Mass/Vol] 3.5 g/dL 3.2-5.[address] [facility] Serum or plasma albumin/glob ulin mass ratioOrdered By: Dr. Byrne on 05-27-2022 Albumin/Globulin [Mass ratio] 0.8 {ratio} 0.9-2.4 [facility] Serum or plasma calcium juliana urement (mass/volume)Ordered By: Dr. Byrne on 05-27-2022 Calcium [Mass/Vol] 9.2 mg/dL 8.5-10.[address] [facility] Serum or plasma creatinine m easurement (mass/volume)Ordered By: Dr. Byrne on 05-27-2022 Creatinine [Mass/Vol] 0.82 mg/dL 0.55-1.02 [facility] Comment on above: The validity of the calculated GFR & GFRAA in patients over 70 years has not been determined. Clinical correlation is essential. Serum or plasma urea nitroge n measurement (mass/volume)Ordered By: Dr. Byrne on 05-27-2022 Urea nitrogen [Mass/Vol] 12 mg/dL 7-18 [facility] Thin prep Papanicolaou smear with manual screeningOrdered By: Dr. Byrne on 05-27-2022 Thin prep Papanicolaou smear with manual screening 50 U/L 15-37 [facility] Comment on above: Moderate Hemolysis, Result may be falsely increased. Thin prep Papanicolaou smear with manual screening 6 5-15 [facility] Absolute lymphocyte countOrd ered By: Elvira Guillory on 04-22-2022 Lymphocytes Auto (Unsp spec) [#/Vol] 1.84 10*3/uL 0.83-4.51 [facility] Basophil percentageOrdered B y: Elvira Guillory on 04-22-2022 Basophils/100 WBC (Bld) 0.4 % 0-1 [facility] Eosinophils/100 WBC (Bld) 3.3 % 0-5 [facility] Neutrophils (Bld) [#/Vol] 9.2 10*3/uL 2.0-7.7 [facility] Neutrophils/100 WBC (Bld) 75.5 % 47-70 [facility] WBC (Bld) [#/Vol] 12.2 10*3/uL 4.4-11.0 [facility] Blood erythrocytes count (nu mber/volume)Ordered By: Elvira Guillory on 04-22-2022 RBC (Bld) [#/Vol] 4.09 10*6/uL 4.2-5.4 [facility] Blood hemoglobin measurement (mass/volume)Ordered By: Elvira Guillory on 04-22-2022 Hemoglobin (Bld) [Mass/Vol] 11.5 g/dL 12.0-15.0 [facility] Blood lymphocytes/100 leukoc ytesOrdered By: Elvira Guillory on 04-22-2022 Lymphocytes/100 WBC (Bld) 15.1 % 19-41 [facility] Blood monocytes/100 leukocyt esOrdered By: Elvira Guillory on 04-22-2022 Monocytes/100 WBC (Bld) 5.2 % 0-10 [facility] Blood platelet mean volumeOr dered By: Elvira Guillory on 04-22-2022 Platelet mean volume (Bld) [Entitic vol] 11.9 fL 6.2-12.0 [facility] Determination of erythrocyte mean corpuscular volume (MCV)Ordered By: Elvira Guillory on 04-22-2022 MCV (RBC) [Entitic vol] 83.1 fL 81-99 [facility] Hematocrit Auto (Bld) [Volum e fraction]Ordered By: Elvira Guillory on 04-22-2022 Hematocrit (Bld) [Volume fraction] 34.0 % 37-47 [facility] Laboratory - Hematology and Cell countsOrdered By: Elvira Guillory on 04-22-2022 Erythrocyte distribution width (RBC) [Entitic vol] 40.7 fL 35.1-43.9 [facility] Erythrocyte distribution width (RBC) [Ratio] 13.6 % 11.6-14.6 [facility] Immature granulocytes/100 WBC (Bld) 0.500 % 0.0-0.9 [facility] Comment on above: IG% - Immature Granu locytes (promyelocytes, myelocytes and metamyelocytes) > 1% indicates that a LEFT SHIFT is Present. MCH (RBC) [Entitic mass] 28.1 pg 27.0-32.0 [facility] Nucleated RBC/100 WBC (Bld) [Ratio] 0 % 0-5 [facility] [Mass/Vol]Or dered By: Elvira Guillory on 04-22-2022 MCHC (RBC) [Mass/Vol] 33.8 g/dL 32-36 [facility] Platelets bldOrdered By: Anaya Guillory on 04-22-2022 Platelets (Bld) [#/Vol] 223 10*3/uL 150-450 [facility] URINE OB DIP B/Oon 3 Glucose Ql (U) Negative Neg mg/dL [facility] Protein.monoclonal (U) [Mass/Vol] Negative Neg mg/dL [facility] URINE OB DIP B/Oon 3 Glucose Ql (U) Negative Neg mg/dL [facility] Protein.monoclonal (U) [Mass/Vol] Negative Neg mg/dL [facility] URINE OB DIP B/Oon 3 Glucose Ql (U) Negative Neg mg/dL [facility] Protein.monoclonal (U) [Mass/Vol] Negative Neg mg/dL [facility] Culture, urineOrdered By: Tamera Webb on 03-28-2022 Bacteria identified Cx Nom (U) Positive [facility] Bilirubin Test strip Ql (U)O rdered By: Tamera Webb on 03-27-2022 Bilirubin Ql (U) Negative Negative [facility] Ketones Test strip Ql (U)Ord ered By: Tamera Webb on 03-27-2022 Ketones Ql (U) Negative Negative [facility] Nitrite Test strip Ql (U)Ord ered By: Tamera Webb on 03-27-2022 Nitrite Ql (U) Negative Negative [facility] Protein Test strip Ql (U)Ord ered By: Tamera Webb on 03-27-2022 Protein Ql (U) Negative Negative [facility] Urine blood detectionOrdered By: Tamera Webb on 03-27-2022 RBC Ql (U) Negative Negative [facility] Urine clarityOrdered By: Tamera Webb on 03-27-2022 Clarity (U) Clear Clear [facility] Urine color determinationOrd ered By: Tamera Webb on 03-27-2022 Color (U) Yellow Yellow [facility] Urine glucose detectionOrder ed By: Tamera Webb on 03-27-2022 Glucose Ql (U) Normal mg/dl Normal [facility] Urine leukocyte esterase det ection by dipstickOrdered By: Tamera Webb on 03-27-2022 Leukocyte esterase Test strip Ql (U) Negative Negative [facility] Urine pHOrdered By: Tamera Vasquez on 03-27-2022 pH (U) 6.0 [pH] 5.0 - 8.0 [facility] Urine specific gravity measu rementOrdered By: Tamera Webb on 03-27-2022 Specific gravity (U) [Rel density] 1.015 1.002-1.030 [facility] Urobilinogen Auto test strip Ql (U)Ordered By: Tamera Webb on 03-27-2022 Urobilinogen Ql (U) Normal mg/dl Normal [facility] URINE OB DIP B/Oon Glucose Ql (U) Negative Neg mg/dL [facility] Protein.monoclonal (U) [Mass/Vol] Negative Neg mg/dL [facility] UA DIP, URINE (POC)on 2021 BILIRUBIN UA (POCT) Negative Negative [facility] CLARITY UA (POCT) Clear [facility] COLOR UA (POCT) Yellow [facility] GLUCOSE UA (POCT) Negative Negative mg/dL [facility] HEMOGLOBIN/BLOOD UA (POCT) Negative Negative [facility] KETONE UA (POCT) Negative Negative [facility] LEUKOCYTES UA (POCT) Negative Negative [facility] NITRITE UA (POCT) Negative Negative [facility] PH UA (POCT) 6.5 4.5 - 8.0 [facility] Protein Ql (U) Negative Negative mg/dL [facility] SPECIFIC GRAVITY UA (POCT) 1.025 1.005 - 1.030 [facility] UROBILINOGEN UA (POCT) 0.2 E.U./dL Normal E.U./ dL [facility] UA DIP, URINE (POC)on 2021 BILIRUBIN UA (POCT) Negative Negative [facility] CLARITY UA (POCT) Clear [facility] COLOR UA (POCT) Yellow [facility] GLUCOSE UA (POCT) Negative Negative mg/dL [facility] HEMOGLOBIN/BLOOD UA (POCT) Negative Negative [facility] KETONE UA (POCT) Negative Negative mg/dL [facility] LEUKOCYTES UA (POCT) Negative Negative [facility] NITRITE UA (POCT) Negative [facility] PH UA (POCT) 6.0 4.5 - 8.0 [facility] Protein Ql (U) Negative Negative mg/dL [facility] SPECIFIC GRAVITY UA (POCT) 1.025 1.005 - 1.030 [facility] UROBILINOGEN UA (POCT) 0.2 E.U./dL Normal E.U./ dL [facility] URINE OB DIP B/Oon 2 Glucose Ql (U) Negative Neg mg/dL [facility] Protein.monoclonal (U) [Mass/Vol] Negative Neg mg/dL [facility] Absolute lymphocyte countOrd ered By: Dr. Lambert on 02-10-2022 Lymphocytes Auto (Unsp spec) [#/Vol] 3.15 10*3/uL 0.83-4.51 [facility] Basophil percentageOrdered B y: Dr. Lambert on 02-10-2022 Amylase [Catalytic activity/Vol] 67 U/L 25-115 [facility] Basophils/100 WBC (Bld) 0.2 % 0-1 [facility] Bilirubin [Mass/Vol] 0.20 mg/dL 0.20-1.00 [facility] Comment on above: For patients on eltr ombopag therapy, use of Dimension [place] TBIL is not recommended. Chloride [Moles/Vol] 106 mmol/L 98-107 [facility] Eosinophils/100 WBC (Bld) 2.5 % 0-5 [facility] Glucose [Mass/Vol] 98 mg/dL 74-[address] [facility] Neutrophils (Bld) [#/Vol] 8.3 10*3/uL 2.0-7.7 [facility] Neutrophils/100 WBC (Bld) 66.2 % 47-70 [facility] Potassium [Moles/Vol] 3.6 mmol/L 3.5-5.1 [facility] Protein [Mass/Vol] 8.3 g/dL 6.4-8.[address] [facility] Sodium [Moles/Vol] 137 mmol/L 136-[address] [facility] WBC (Bld) [#/Vol] 12.5 10*3/uL 4.4-11.0 [facility] Blood erythrocytes count (nu mber/volume)Ordered By: Dr. Lambert on 02-10-2022 RBC (Bld) [#/Vol] 4.47 10*6/uL 4.2-5.4 [facility] Blood hemoglobin measurement (mass/volume)Ordered By: Dr. Lambert on 02-10-2022 Hemoglobin (Bld) [Mass/Vol] 13.2 g/dL 12.0-15.0 [facility] Blood lymphocytes/100 leukoc ytesOrdered By: Dr. Lambert on 02-10-2022 Lymphocytes/100 WBC (Bld) 25.2 % 19-41 [facility] Blood monocytes/100 leukocyt esOrdered By: Dr. Lambert on 02-10-2022 Monocytes/100 WBC (Bld) 5.3 % 0-10 [facility] Blood platelet mean volumeOr dered By: Dr. Lambert on 02-10-2022 Platelet mean volume (Bld) [Entitic vol] 12.0 fL 6.2-12.0 [facility] Determination of erythrocyte mean corpuscular volume (MCV)Ordered By: Dr. Lambert on 02-10-2022 MCV (RBC) [Entitic vol] 89.0 fL 81-99 [facility] Hematocrit Auto (Bld) [Volum e fraction]Ordered By: Dr. Lambert on 02-10-2022 Hematocrit (Bld) [Volume fraction] 39.8 % 37-47 [facility] INR in Blood by Coagulation assayOrdered By: Dr. Lambert on 02-10-2022 INR Coag (Bld) [Relative time] 1.0 {INR} [facility] Laboratory - Chemistry and C hemistry - challengeOrdered By: Dr. Lambert on 02-10-2022 ALP [Catalytic activity/Vol] 110 U/L 45-117 [facility] ALT [Catalytic activity/Vol] 22 U/L 13-56 [facility] CO2 [Moles/Vol] 26.0 mmol/L 21.0-32.0 [facility] Globulin (S) [Mass/Vol] 5.0 g/dL 2.2-4.2 [facility] Lipase [Catalytic activity/Vol] 131 U/L 73-393 [facility] Urea nitrogen/Creatinine [Mass ratio] 12.7 mg/mg 10-20 [facility] Laboratory - CoagulationOrde red By: Dr. Lambert on 02-10-2022 aPTT Coag (Bld) [Time] 25.1 s 24.1-36.2 [facility] PT Coag (PPP) [Time] 13.3 s 11.7-14.9 [facility] Laboratory - Hematology and Cell countsOrdered By: Dr. Lambert on 02-10-2022 Erythrocyte distribution width (RBC) [Entitic vol] 40.7 fL 35.1-43.9 [facility] Erythrocyte distribution width (RBC) [Ratio] 12.3 % 11.6-14.6 [facility] Immature granulocytes/100 WBC (Bld) 0.600 % 0.0-0.9 [facility] Comment on above: IG% - Immature Granu locytes (promyelocytes, myelocytes and metamyelocytes) > 1% indicates that a LEFT SHIFT is Present. MCH (RBC) [Entitic mass] 29.5 pg 27.0-32.0 [facility] Nucleated RBC/100 WBC (Bld) [Ratio] 0 % 0-5 [facility] MCHC Auto (RBC) [Mass/Vol]Or dered By: Dr. Lambert on 02-10-2022 MCHC (RBC) [Mass/Vol] 33.2 g/dL 32-36 [facility] No Panel InformationOrdered By: Dr. Lambert on 02-10-2022 Estimated Creatinine Clearance Calc 92.82 ml/min [facility] Estimated GFR (MDRD) Amer 106 mL/min >60 [facility] Comment on above: GFR Calc Estimated GFR (MDRD) Non-Af Amer 88 mL/min >60 [facility] Comment on above: Non- GFR Calc Fibrinogen 516 mg/dl 203-444 [facility] Platelets bldOrdered By: Dr. Lambert on 02-10-2022 Platelets (Bld) [#/Vol] 278 10*3/uL 150-450 [facility] Serum or plasma albumin juliana urement (mass/volume)Ordered By: Dr. Lambert on 02-10-2022 Albumin [Mass/Vol] 3.3 g/dL 3.2-5.[address] [facility] Serum or plasma albumin/glob ulin mass ratioOrdered By: Dr. Lambert on 02-10-2022 Albumin/Globulin [Mass ratio] 0.7 {ratio} 0.9-2.4 [facility] Serum or plasma calcium juliana urement (mass/volume)Ordered By: Dr. Lambert on 02-10-2022 Calcium [Mass/Vol] 9.9 mg/dL 8.5-10.[address] [facility] Serum or plasma creatinine m easurement (mass/volume)Ordered By: Dr. Lambert on 02-10-2022 Creatinine [Mass/Vol] 0.87 mg/dL 0.55-1.02 [facility] Comment on above: The validity of the calculated GFR & GFRAA in patients over 70 years has not been determined. Clinical correlation is essential. Serum or plasma urea nitroge n measurement (mass/volume)Ordered By: Dr. Lambert on 02-10-2022 Urea nitrogen [Mass/Vol] 11 mg/dL 7-18 [facility] Thin prep Papanicolaou smear with manual screeningOrdered By: Dr. Lambert on 02-10-2022 Thin prep Papanicolaou smear with manual screening 18 U/L 15-37 [facility] Thin prep Papanicolaou smear with manual screening 5 5-15 [facility] URINE OB DIP B/Oon 2 Glucose Ql (U) Negative Neg mg/dL [facility] Protein.monoclonal (U) [Mass/Vol] Negative Neg mg/dL [employer] BLOODon 01-27-2022 Lead (Bld) [Mass/Vol] <3.5 ug/dL [facility] URINE OB DIP B/Oon 2 Glucose Ql (U) Negative Neg mg/dL [facility] Protein.monoclonal (U) [Mass/Vol] Negative Neg mg/dL [facility] OBSTETRIC ULTRASOUND WHIon 1 [facility] URINE OB DIP B/Oon 2 Glucose Ql (U) Negative Neg mg/dL [facility] Protein.monoclonal (U) [Mass/Vol] Negative Neg mg/dL [facility] Absolute lymphocyte counton 05-28-2021 Lymphocytes Auto (Unsp spec) [#/Vol] 1.56 10*3/uL 0.83-4.51 [facility] Work Phone: Basophil percentageon 2021 Basophils/100 WBC (Bld) 0.7 % 0-1 [facility] Work Phone: Eosinophils/100 WBC (Bld) 5.8 % 0-5 [facility] Work Phone: Neutrophils (Bld) [#/Vol] 4.4 10*3/uL 2.0-7.7 [facility] Work Phone: Neutrophils/100 WBC (Bld) 63.7 % 47-70 [facility] Work Phone: WBC (Bld) [#/Vol] 6.9 10*3/uL 4.4-11.[address] [facility] Work Phone: Blood erythrocytes count (nu mber/volume)on 05-28-2021 RBC (Bld) [#/Vol] 4.89 10*6/uL 4.2-5.4 [facility] Work Phone: Blood hemoglobin measurement (mass/volume)on 05-28-2021 Hemoglobin (Bld) [Mass/Vol] 14.3 g/dL 12.0-15.0 [facility] Work Phone: Blood lymphocytes/100 leukoc yteson 05-28-2021 Lymphocytes/100 WBC (Bld) 22.6 % 19-41 [facility] Work Phone: Blood monocytes/100 leukocyt eson 05-28-2021 Monocytes/100 WBC (Bld) 7.1 % 0-10 [facility] Work Phone: Blood platelet mean volumeon 05-28-2021 Platelet mean volume (Bld) [Entitic vol] 12.7 fL 6.2-12.0 [facility] Work Phone: Determination of erythrocyte mean corpuscular volume (MCV)on 05-28-2021 MCV (RBC) [Entitic vol] 86.9 fL 81-99 [facility] Work Phone: Hematocrit Auto (Bld) [Volum e fraction]on 05-28-2021 Hematocrit (Bld) [Volume fraction] 42.5 % 37-47 [facility] Work Phone: Laboratory - Hematology and Cell countson 05-28-2021 Erythrocyte distribution width (RBC) [Entitic vol] 42.4 fL 35.1-43.9 [facility] Work Phone: Erythrocyte distribution width (RBC) [Ratio] 13.4 % 11.6-14.6 [facility] Work Phone: [phone] Immature granulocytes/100 WBC (Bld) 0.100 % 0.0-0.9 [facility] Work Phone: Comment on above: IG% - Immature Granu locytes (promyelocytes, myelocytes and metamyelocytes) > 1% indicates that a LEFT SHIFT is Present. MCH (RBC) [Entitic mass] 29.2 pg 27.0-32.0 [facility] Work Phone: Nucleated RBC/100 WBC (Bld) [Ratio] 0 % 0-5 [facility] Work Phone: MCHC Auto (RBC) [Mass/Vol]on 05-28-2021 MCHC (RBC) [Mass/Vol] 33.6 g/dL 32-36 [facility] Work Phone: Platelets bldon 05-28-2021 Platelets (Bld) [#/Vol] 170 10*3/uL 150-450 [facility] Work Phone: Serum or plasma choriogonado tropin detectionon 05-28-2021 HCG ( test) Ql 46 mIU/mL <4 [facility] Work Phone: Comment on above: hCG levels with Gest ational AgeGestational Age hCG mIU/mL (IU/L)0.2 - 1 week 5 - 501-2 weeks 50 - 5002-3 weeks 100 - 39432-6 weeks 500 - 409440-1 weeks 1000 - 889146-8 weeks 38195 - 100,0006-8 weeks 79363 - 200,0002-3 months 32918 - 100,000 Vital Signs Date Time Vital Sign Value Performing Clinician Facility 11-03-2024 14:56-0400 Body mass index (BMI) [Ratio] 32.28 kg/m2 Viviana Ashton [employer]CN[employer] Work Phone: [facility] 11-03-2024 14:56-0400 Body weight 88 kg Viviana Ashton [employer] Work Phone: [facility] 11-03-2024 14:56-0400 Diastolic blood pressure 80 mm[Hg] Viviana Ashton [employer] Work Phone: [facility] 11-03-2024 14:56-0400 Systolic blood pressure 110 mm[Hg] Viviana Ashton [employer]CN[employer] Work Phone: [facility] 10-18-2024 15:15-0400 Body mass index (BMI) [Ratio] 31.95 kg/m2 Elvira Guillory APRN.CNM Work Phone: [facility] 10-18-2024 15:15-0400 Body weight 87.09 kg Elvira Guillory APRN.CNM Work Phone: [facility] 10-18-2024 15:15-0400 Diastolic blood pressure 80 mm[Hg] Elvira Guillory APRN.CNM Work Phone: [facility] 10-18-2024 15:15-0400 Systolic blood pressure 120 mm[Hg] Elvira Guillory APRN.CNM Work Phone: [facility] 10-03-2024 14:43-0400 Body mass index (BMI) [Ratio] 32.12 kg/m2 Kylee Weiss MD Work Phone: [facility] 10-03-2024 14:43-0400 Body weight 87.54 kg Kylee Weiss MD Work Phone: [facility] 10-03-2024 14:43-0400 Diastolic blood pressure 74 mm[Hg] Kylee Weiss MD Work Phone: [facility] 10-03-2024 14:43-0400 Systolic blood pressure 120 mm[Hg] Kylee Weiss MD Work Phone: [facility] 09-28-2024 15:05-0400 Body mass index (BMI) [Ratio] 31.98 kg/m2 Nancy Lambert MD Work Phone: [facility] 09-28-2024 15:05-0400 Body weight 87.18 kg Nancy Lambert MD Work Phone: [facility] 09-28-2024 15:05-0400 Diastolic blood pressure 72 mm[Hg] Nancy Lambert MD Work Phone: [facility] 09-28-2024 15:05-0400 Systolic blood pressure 124 mm[Hg] Nancy Lambert MD Work Phone: [facility] 09-07-2024 15:17-0400 Body mass index (BMI) [Ratio] 31.62 kg/m2 Viviana Ashton [employer]CNM Work Phone: [facility] 09-07-2024 15:17-0400 Body weight 86.18 kg Viviana Ashton [employer]CNM Work Phone: [facility] 09-07-2024 15:17-0400 Diastolic blood pressure 74 mm[Hg] Viviana Ashton [employer] Work Phone: [facility] 09-07-2024 15:17-0400 Systolic blood pressure 122 mm[Hg] Viviana Ashton [employer] Work Phone: [facility] 08-15-2024 08:38-0400 Body mass index (BMI) [Ratio] 31.45 kg/m2 Gabriella Haury [employer] Work Phone: [facility] 08-15-2024 08:38-0400 Body weight 85.73 kg Gabriella Haury [employer] Work Phone: [facility] 08-15-2024 08:38-0400 Diastolic blood pressure 72 mm[Hg] Gabriella Haury [employer] Work Phone: [facility] 08-15-2024 08:38-0400 Systolic blood pressure 120 mm[Hg] Gabriella Shepherdury [employer] Work Phone: [facility] 07-11-2024 14:20-0400 Body mass index (BMI) [Ratio] 30.12 kg/m2 Elvira Guillory [employer]CN[employer] Work Phone: [facility] 07-11-2024 14:20-0400 Body weight 82.1 kg Elvira Guillory [employer]M Work Phone: [facility] 07-11-2024 14:20-0400 Diastolic blood pressure 74 mm[Hg] Elvira Guillory [employer] Work Phone: [facility] 07-11-2024 14:20-0400 Systolic blood pressure 118 mm[Hg] Elvira Guillory [employer] Work Phone: [facility] 06-13-2024 14:22-0400 Body mass index (BMI) [Ratio] 29.79 kg/m2 Elvira Guillory [employer] Work Phone: [facility] 06-13-2024 14:22-0400 Body weight 81.19 kg Elvira Guillory [employer] Work Phone: [facility] 06-13-2024 14:22-0400 Diastolic blood pressure 74 mm[Hg] Elvira Guillory [employer] Work Phone: [facility] 06-13-2024 14:22-0400 Systolic blood pressure 116 mm[Hg] Elvira Guillory APRN.CNM Work Phone: [facility] 06-09-2024 01:56-0400 Body temperature 98 [degF] No Primary Care Physician [facility] 06-09-2024 01:56-0400 Diastolic blood pressure 61 mm[Hg] No Primary Care Physician [facility] 06-09-2024 01:56-0400 Heart rate 75 /min No Primary Care Physician [facility] 06-09-2024 01:56-0400 Respiratory rate 16 /min No Primary Care Physician [facility] 06-09-2024 01:56-0400 SaO2% (BldA) [Mass fraction] 99 % No Primary Care Physician [facility] 06-09-2024 01:56-0400 Systolic blood pressure 116 mm[Hg] No Primary Care Physician [facility] 06-09-2024 00:34-0400 Body height 165.1 cm No Primary Care Physician [facility] 06-09-2024 00:34-0400 Body mass index (BMI) [Ratio] 29.7 kg/m2 No Primary Care Physician [facility] 06-09-2024 00:34-0400 Body weight 81.2 kg No Primary Care Physician [facility] 05-17-2024 14:46-0400 Body mass index (BMI) [Ratio] 29.45 kg/m2 Elvira Guillory APRN.CNM Work Phone: [facility] 05-17-2024 14:46-0400 Body weight 80.29 kg Elvira Guillory APRN.CNM Work Phone: [facility] 05-17-2024 14:46-0400 Diastolic blood pressure 66 mm[Hg] Elvira Guillory APRN.CNM Work Phone: [facility] 05-17-2024 14:46-0400 Systolic blood pressure 112 mm[Hg] Elvira Guillory APRN.CNM Work Phone: [facility] 04-30-2024 22:13-0500 Body temperature 98.7 [degF] No Primary Care Physician [facility] 04-30-2024 22:13-0500 Diastolic blood pressure 68 mm[Hg] No Primary Care Physician [facility] 04-30-2024 22:13-0500 Heart rate 88 /min No Primary Care Physician [facility] 04-30-2024 22:13-0500 Respiratory rate 16 /min No Primary Care Physician [facility] 04-30-2024 22:13-0500 SaO2% (BldA) [Mass fraction] 98 % No Primary Care Physician [facility] 04-30-2024 22:13-0500 Systolic blood pressure 114 mm[Hg] No Primary Care Physician [facility] 04-30-2024 18:45-0500 Body mass index (BMI) [Ratio] 29.6 kg/m2 No Primary Care Physician [facility] 04-30-2024 18:45-0500 Body weight 80.73 kg No Primary Care Physician [facility] 04-11-2024 12:58-0500 Body height 165.1 cm Elvira Guillory APRN.CNM Work Phone: [facility] 04-11-2024 12:58-0500 Body mass index (BMI) [Ratio] 29.45 kg/m2 Elvira Guillory APRN.[employer] Work Phone: [facility] 04-11-2024 12:58-0500 Body weight 80.29 kg Elvira Guillory APRN.[employer] Work Phone: [facility] 04-11-2024 12:58-0500 Diastolic blood pressure 76 mm[Hg] Elivra Guillory APRN.[employer] Work Phone: [facility] 04-11-2024 12:58-0500 Systolic blood pressure 118 mm[Hg] Elvira Guillory APRN.[employer] Work Phone: [facility] 04-07-2024 10:48-0500 Body mass index (BMI) [Ratio] 28 kg/m2 Evelyn Mancia APRN.CNP Work Phone: [facility] 04-07-2024 10:48-0500 Body temperature 98.8 [degF] Evelyn Praisler-Wood [employer] BOX WORKER.[employer] Work Phone: [facility] 04-07-2024 10:48-0500 Body weight 81.1 kg Evelyn Praisler-Wood [employer] WORKER.[employer] CON[employer]ULTANT Work Phone: [facility] 04-07-2024 10:48-0500 Diastolic blood pressure 74 mm[Hg] Evelyn Praisler-Wood [employer] WORKER.[employer] CON[employer]ULT[employer] Work Phone: [facility] 04-07-2024 10:48-0500 Heart rate 95 /min Evelyn Praisler-Wood [employer] WORKER.[employer] CON[employer]ULTANT Work Phone: [facility] 04-07-2024 10:48-0500 Respiratory rate 20 /min Evelyn Praisler-Wood [employer] WORKER.[employer] CON[employer]ULT[employer] Work Phone: [facility] 04-07-2024 10:48-0500 SaO2% (BldA) [Mass fraction] 99 % Evelyn Praisler-Wood [employer] WORKER.[employer] CON[employer]ULT[employer] Work Phone: [facility] 04-07-2024 10:48-0500 Systolic blood pressure 122 mm[Hg] Evelyn Praisler-Wood [employer] B[employer] WORKER.[employer] CON[employer]ULT[employer] Work Phone: [facility] 02-02-2024 11:55-0500 Body mass index (BMI) [Ratio] 27.45 kg/m2 Elvira Larsen [employer] WORKER.[employer] CON[employer]ULT[employer] Work Phone: [facility] 02-02-2024 11:55-0500 Body temperature 98.2 [degF] Elvira Larsen [employer] WORKER.[employer] CON[employer]ULTANT Work Phone: [facility] 02-02-2024 11:55-0500 Body weight 79.5 kg Elvira Larsen [employer] WORKER.[employer] CON[employer]ULT[employer] Work Phone: [facility] 02-02-2024 11:55-0500 Diastolic blood pressure 70 mm[Hg] Elvira Larsen [employer] WORKER.[employer] CON[employer]ULT[employer] Work Phone: [facility] 02-02-2024 11:55-0500 Heart rate 86 /min Elvira Larsen [employer] WORKER.[employer] CON[employer]ULTANT Work Phone: [facility] 02-02-2024 11:55-0500 Respiratory rate 16 /min Elviramirlande Larsen [employer] BOX WORKER.[employer] CON[employer]ULTANT Work Phone: [facility] 02-02-2024 11:55-0500 SaO2% (BldA) [Mass fraction] 97 % Elviramirlande Larsen [employer] WORKER.[employer] CONSULTANT Work Phone: [facility] 02-02-2024 11:55-0500 Systolic blood pressure 108 mm[Hg] Elvira Larsen [employer] WORKER.[employer] CON[employer]ULTANT Work Phone: [facility] 08-20-2023 14:21-0400 Body mass index (BMI) [Ratio] 31.48 kg/m2 Viviana Plotpinky [employer] WORKER.CNM Work Phone: [facility] 08-20-2023 14:21-0400 Body weight 91.17 kg Viviana Plotpinky [employer] WORKER.CNM Work Phone: [facility] 08-20-2023 14:21-0400 Diastolic blood pressure 76 mm[Hg] Viviana Plotts [employer] WORKER.CNM Work Phone: [facility] 08-20-2023 14:21-0400 Systolic blood pressure 128 mm[Hg] Viviana Plotts [employer] WORKER.CNM Work Phone: [facility] 08-12-2023 15:12-0400 Body mass index (BMI) [Ratio] 31.17 kg/m2 Elvira Guillory [employer] WORKER.CNM Work Phone: [facility] 08-12-2023 15:12-0400 Body weight 90.27 kg Elvira Guillory [employer] WORKER.CNM Work Phone: [facility] 08-12-2023 15:12-0400 Diastolic blood pressure 72 mm[Hg] Elvira Guillory [employer] WORKER.CNM Work Phone: [facility] 08-12-2023 15:12-0400 Systolic blood pressure 114 mm[Hg] Elvira Guillory [employer] WORKER.CNM Work Phone: [facility] 08-04-2023 12:28-0400 Diastolic blood pressure 81 mm[Hg] Elvira Guillory [employer] WORKER.CNM Work Phone: [facility] Comment on above: TruBP average 08-04-2023 12:28-0400 Systolic blood pressure 122 mm[Hg] Elvira Guillory [employer] WORKER.CNM Work Phone: [facility] Comment on above: TruBP average 08-04-2023 11:00-0400 Body mass index (BMI) [Ratio] 30.92 kg/m2 Elvira Guillory [employer] WORKER.CNM Work Phone: [facility] 08-04-2023 11:00-0400 Body weight 89.54 kg Elvira Guillory [employer] WORKER.CNM Work Phone: [facility] 07-29-2023 10:57-0400 Body mass index (BMI) [Ratio] 30.38 kg/m2 Elvira Guillory [employer] WORKER.CNM Work Phone: [facility] 07-29-2023 10:57-0400 Body weight 88 kg Elvira Guillory [employer] WORKER.CNM Work Phone: [facility] 07-29-2023 10:57-0400 Diastolic blood pressure 82 mm[Hg] Elvira Guillory [employer] WORKER.CNM Work Phone: [facility] 07-29-2023 10:57-0400 Systolic blood pressure 128 mm[Hg] Elvira Guillory [employer] WORKER.CNM Work Phone: [facility] 07-14-2023 15:05-0400 Body mass index (BMI) [Ratio] 30.54 kg/m2 Elvira Guillory [employer] WORKER.CNM Work Phone: [facility] 07-14-2023 15:05-0400 Body weight 88.45 kg Elvira Guillory [employer] WORKER.CNM Work Phone: [facility] 07-14-2023 15:05-0400 Diastolic blood pressure 74 mm[Hg] Elvira Guillory [employer] WORKER.CNM Work Phone: [facility] 07-14-2023 15:05-0400 Systolic blood pressure 116 mm[Hg] Elvira Guillory APRN.CNM Work Phone: [facility] 07-01-2023 14:21-0400 Body mass index (BMI) [Ratio] 30.26 kg/m2 Elvira Guillory APRN.CNM Work Phone: [facility] 07-01-2023 14:21-0400 Body weight 87.64 kg Elvira Guillory APRN.CNM Work Phone: [facility] 07-01-2023 14:21-0400 Diastolic blood pressure 72 mm[Hg] Elvira Guillory APRN.CNM Work Phone: [facility] 07-01-2023 14:21-0400 Systolic blood pressure 128 mm[Hg] Elvira Guillory APRN.CNM Work Phone: [facility] 06-17-2023 15:09-0400 Body weight 86.36 kg Elvira Guillory APRN.CNM Work Phone: [facility] 06-17-2023 15:09-0400 Diastolic blood pressure 68 mm[Hg] Elvira Guillory APRN.CNM Work Phone: [facility] 06-17-2023 15:09-0400 Systolic blood pressure 110 mm[Hg] Elvira Guillory APRN.CNM Work Phone: [facility] 06-13-2023 05:16-0400 Diastolic blood pressure 66 mm[Hg] [facility] 06-13-2023 05:16-0400 Heart rate 82 /min [facility] 06-13-2023 05:16-0400 Systolic blood pressure 117 mm[Hg] [facility] 06-13-2023 04:46-0400 Body temperature 98 [degF] [facility] 06-13-2023 04:46-0400 Respiratory rate 16 /min [facility] 06-13-2023 04:46-0400 SaO2% (BldA) [Mass fraction] 99 % [facility] 06-13-2023 04:42-0400 Body height 165.1 cm [facility] 06-13-2023 04:42-0400 Body mass index (BMI) [Ratio] 31.1 kg/m2 [facility] 06-13-2023 04:42-0400 Body weight 85 kg [facility] 06-03-2023 15:04-0400 Body weight 85.37 kg Elvira Guillory [employer] WORKER.CNM Work Phone: [facility] 06-03-2023 15:04-0400 Diastolic blood pressure 72 mm[Hg] Elvira Guillory [employer] WORKER.CNM Work Phone: [facility] 06-03-2023 15:04-0400 Systolic blood pressure 114 mm[Hg] Elvira Guillory [employer] WORKER.CNM Work Phone: [facility] 05-21-2023 15:24-0400 Body weight 82.64 kg Viviana Ashton [employer] WORKER.CNM Work Phone: [facility] 05-21-2023 15:24-0400 Diastolic blood pressure 66 mm[Hg] Viviana Ashton [employer] WORKER.CNM Work Phone: [facility] 05-21-2023 15:24-0400 Systolic blood pressure 114 mm[Hg] Viviana Ashton [employer] WORKER.CNM Work Phone: [facility] 04-26-2023 19:30-0500 Body temperature 98.6 [degF] [facility] 04-26-2023 19:30-0500 Diastolic blood pressure 71 mm[Hg] [facility] 04-26-2023 19:30-0500 Heart rate 87 /min [facility] 04-26-2023 19:30-0500 Respiratory rate 16 /min [facility] 04-26-2023 19:30-0500 SaO2% (BldA) [Mass fraction] 100 % [facility] 04-26-2023 19:30-0500 Systolic blood pressure 118 mm[Hg] [facility] 04-26-2023 18:31-0500 Body height 165.1 cm [facility] 04-26-2023 18:31-0500 Body mass index (BMI) [Ratio] 29.5 kg/m2 [facility] 04-26-2023 18:31-0500 Body weight 80.64 kg [facility] 02-11-2023 13:31-0500 Body weight 73.66 kg Elvira Guillory APRN.CNM Work Phone: [facility] 02-11-2023 13:31-0500 Diastolic blood pressure 68 mm[Hg] Elvira Guillory APRN.CNM Work Phone: [facility] 02-11-2023 13:31-0500 Systolic blood pressure 108 mm[Hg] Elvira Guillory APRN.CNM Work Phone: [facility] 02-04-2023 17:17-0500 Body height 165.1 cm [facility] 02-04-2023 17:17-0500 Body mass index (BMI) [Ratio] 27.5 kg/m2 [facility] 02-04-2023 17:17-0500 Body temperature 97.8 [degF] [facility] 02-04-2023 17:17-0500 Body weight 74.93 kg [facility] 02-04-2023 17:17-0500 Diastolic blood pressure 89 mm[Hg] [facility] 02-04-2023 17:17-0500 Heart rate 110 /min [facility] 02-04-2023 17:17-0500 Respiratory rate 16 /min [facility] 02-04-2023 17:17-0500 SaO2% (BldA) [Mass fraction] 100 % [facility] 02-04-2023 17:17-0500 Systolic blood pressure 139 mm[Hg] [facility] 01-28-2023 13:05-0500 Body height 170.2 cm Elvira Guillory APRN.[employer] Work Phone: [facility] 01-28-2023 13:05-0500 Body weight 75.84 kg Elvira Guillory APRN.[employer] Work Phone: [facility] 01-28-2023 13:05-0500 Diastolic blood pressure 68 mm[Hg] Elvira Guillory APRN.[employer] Work Phone: [facility] 01-28-2023 13:05-0500 Systolic blood pressure 126 mm[Hg] Elvira Guillory APRN.[employer] Work Phone: [facility] 01-25-2023 23:12-0500 Body height 165.1 cm [facility] 01-25-2023 23:12-0500 Body mass index (BMI) [Ratio] 27.8 kg/m2 [facility] 01-25-2023 23:12-0500 Body temperature 97.8 [degF] [facility] 01-25-2023 23:12-0500 Body weight 75.84 kg [facility] 01-25-2023 23:12-0500 Diastolic blood pressure 84 mm[Hg] [facility] 01-25-2023 23:12-0500 Heart rate 95 /min [facility] 01-25-2023 23:12-0500 Respiratory rate 16 /min [facility] 01-25-2023 23:12-0500 SaO2% (BldA) [Mass fraction] 100 % [facility] 01-25-2023 23:12-0500 Systolic blood pressure 137 mm[Hg] [facility] 10-07-2022 21:35-0400 Body temperature 97.3 [degF] [facility] 10-07-2022 21:35-0400 Diastolic blood pressure 71 mm[Hg] [facility] 10-07-2022 21:35-0400 Heart rate 65 /min [facility] 10-07-2022 21:35-0400 Respiratory rate 16 /min [facility] 10-07-2022 21:35-0400 SaO2% (BldA) [Mass fraction] 100 % [facility] 10-07-2022 21:35-0400 Systolic blood pressure 126 mm[Hg] [facility] 06-28-2022 04:10-0400 Heart rate 74 /min [facility] 06-28-2022 04:10-0400 Respiratory rate 18 /min [facility] 06-28-2022 04:10-0400 SaO2% (BldA) [Mass fraction] 96 % [facility] 06-28-2022 02:25-0400 Body height 165.1 cm [facility] 06-28-2022 02:25-0400 Body mass index (BMI) [Ratio] 29.5 kg/m2 [facility] 06-28-2022 02:25-0400 Body temperature 96.6 [degF] [facility] 06-28-2022 02:25-0400 Body weight 80.6 kg [facility] 06-28-2022 02:25-0400 Diastolic blood pressure 46 mm[Hg] [facility] 06-28-2022 02:25-0400 Systolic blood pressure 112 mm[Hg] [facility] 05-27-2022 14:10-0400 Diastolic blood pressure 77 mm[Hg] [facility] 05-27-2022 14:10-0400 Heart rate 62 /min [facility] 05-27-2022 14:10-0400 Respiratory rate 15 /min [facility] 05-27-2022 14:10-0400 SaO2% (BldA) [Mass fraction] 98 % [facility] 05-27-2022 14:10-0400 Systolic blood pressure 134 mm[Hg] [facility] 05-27-2022 13:03-0400 Body height 162.56 cm [facility] 05-27-2022 13:03-0400 Body mass index (BMI) [Ratio] 29.7 kg/m2 [facility] 05-27-2022 13:03-0400 Body temperature 97.4 [degF] [facility] 05-27-2022 13:03-0400 Body weight 78.6 kg [facility] 04-23-2022 15:40-0500 Body temperature 98.2 [degF] [facility] 04-23-2022 15:40-0500 Diastolic blood pressure 84 mm[Hg] [facility] 04-23-2022 15:40-0500 Heart rate 76 /min [facility] 02-15-2023 15:40-0500 Respiratory rate 16 /min [facility] 04-23-2022 15:40-0500 SaO2% (BldA) [Mass fraction] 97 % [facility] 04-23-2022 15:40-0500 Systolic blood pressure 132 mm[Hg] [facility] 04-22-2022 07:20-0500 Body height 165.1 cm [facility] 04-22-2022 07:20-0500 Body mass index (BMI) [Ratio] 31 kg/m2 [facility] 04-22-2022 07:20-0500 Body weight 84.7 kg [facility] 04-21-2022 16:46-0500 Diastolic blood pressure 75 mm[Hg] Elvira Guillory [employer] WORKER.CNM Work Phone: [facility] 04-21-2022 16:46-0500 Systolic blood pressure 119 mm[Hg] Elvira Guillory [employer] WORKER.CNM Work Phone: [facility] 04-21-2022 14:51-0500 Body weight 85 kg Elvira Guillory [employer] WORKER.CNM Work Phone: [facility] 04-14-2022 11:12-0500 Body weight 83.64 kg Elvira Guillory [employer] WORKER.CNM Work Phone: [facility] 04-14-2022 11:12-0500 Diastolic blood pressure 68 mm[Hg] Elvira Guillory [employer] WORKER.CNM Work Phone: [facility] 04-14-2022 11:12-0500 Systolic blood pressure 110 mm[Hg] Elvira Guillory [employer] WORKER.CNM Work Phone: [facility] 04-07-2022 10:15-0500 Body weight 83.19 kg Elvira Guillory [employer] WORKER.CNM Work Phone: [facility] 04-07-2022 10:15-0500 Diastolic blood pressure 72 mm[Hg] Elvira Guillory [employer] WORKER.CNM Work Phone: [facility] 04-07-2022 10:15-0500 Systolic blood pressure 124 mm[Hg] Elvira Guillory [employer] WORKER.CNM Work Phone: [facility] 03-31-2022 11:16-0500 Body weight 82.01 kg Elvira Kahlil [employer] WORKER.CNM Work Phone: [facility] 03-31-2022 11:16-0500 Diastolic blood pressure 66 mm[Hg] Elvira Guillory [employer] WORKER.CNM Work Phone: [facility] 03-31-2022 11:16-0500 Systolic blood pressure 114 mm[Hg] Elvira Guillory [employer] WORKER.CNM Work Phone: [facility] 03-27-2022 12:46-0500 Diastolic blood pressure 82 mm[Hg] [facility] 03-27-2022 12:46-0500 Heart rate 69 /min [facility] 03-27-2022 12:46-0500 Systolic blood pressure 133 mm[Hg] [facility] 03-27-2022 04:15-0500 Diastolic blood pressure 58 mm[Hg] [facility] 03-27-2022 04:15-0500 Heart rate 88 /min [facility] 03-27-2022 04:15-0500 Systolic blood pressure 118 mm[Hg] [facility] 03-27-2022 03:18-0500 Body height 165.1 cm [facility] 03-27-2022 03:18-0500 Body mass index (BMI) [Ratio] 28.3 kg/m2 [facility] 03-27-2022 03:18-0500 Body weight 77.11 kg [facility] 03-27-2022 03:08-0500 Body temperature 99 [degF] [facility] 03-21-2022 10:50-0500 Body weight 80.65 kg Berlin Rothman MD Work Phone: [facility] 03-21-2022 10:50-0500 Diastolic blood pressure 62 mm[Hg] Berlin Rothman MD Work Phone: [facility] 03-21-2022 10:50-0500 Systolic blood pressure 120 mm[Hg] Berlin Rothman MD Work Phone: [facility] 03-06-2022 16:34-0500 Body weight 80.38 kg Berlin Rothman MD Work Phone: [facility] 03-06-2022 16:34-0500 Diastolic blood pressure 62 mm[Hg] Berlin Rothman MD Work Phone: [facility] 03-06-2022 16:34-0500 Systolic blood pressure 124 mm[Hg] Berlin Rothman MD Work Phone: [facility] 02-21-2022 10:09-0500 Body weight 76.66 kg Elvira Guillory [employer] WORKER.CNM Work Phone: [facility] 02-21-2022 10:09-0500 Diastolic blood pressure 70 mm[Hg] Elvira Guillory [employer] WORKER.CNM Work Phone: [facility] 02-21-2022 10:09-0500 Systolic blood pressure 118 mm[Hg] Elvira Guillory [employer] WORKER.CNM Work Phone: [facility] 02-11-2022 10:04-0500 Body weight 77.11 kg Elvira Guillory [employer] WORKER.CNM Work Phone: [facility] 02-11-2022 10:04-0500 Diastolic blood pressure 70 mm[Hg] Elvira Guillory [employer] WORKER.CNM Work Phone: [facility] 02-11-2022 10:04-0500 Systolic blood pressure 110 mm[Hg] Elvira Guillory [employer] WORKER.CNM Work Phone: [facility] 02-10-2022 21:02-0500 Heart rate 104 /min [facility] 02-10-2022 21:01-0500 SaO2% (BldA) [Mass fraction] 97 % [facility] 02-10-2022 20:52-0500 Body temperature 99.2 [degF] [facility] 02-10-2022 20:52-0500 Diastolic blood pressure 95 mm[Hg] [facility] 02-10-2022 20:52-0500 Systolic blood pressure 143 mm[Hg] [facility] 02-10-2022 20:51-0500 Body height 165.1 cm [facility] Work Phone: 02-10-2022 20:51-0500 Body mass index (BMI) [Ratio] 28.4 kg/m2 [facility] 02-10-2022 20:51-0500 Body weight 77.56 kg [facility] 02-07-2022 14:40-0500 Body weight 77.56 kg Elvira Guillory [employer] WORKER.CNM Work Phone: [facility] 02-07-2022 14:40-0500 Diastolic blood pressure 66 mm[Hg] Elvira Guillory [employer] WORKER.CNM Work Phone: [facility] 02-07-2022 14:40-0500 Systolic blood pressure 120 mm[Hg] Elvira Guillory [employer] WORKER.CNM Work Phone: [facility] 01-10-2022 14:21-0400 Body weight 76.39 kg Yumiko Soto MD Work Phone: [facility] 01-10-2022 14:21-0400 Diastolic blood pressure 64 mm[Hg] Yumiko Soto MD Work Phone: [facility] 01-10-2022 14:21-0400 Systolic blood pressure 116 mm[Hg] Yumiko Soto MD Work Phone: [facility] 12-13-2021 09:47-0400 Diastolic blood pressure 70 mm[Hg] Elvira Guillory [employer] WORKER.CNM Work Phone: [facility] 12-13-2021 09:47-0400 Systolic blood pressure 108 mm[Hg] Elvira Guillory [employer] WORKER.CNM Work Phone: [facility] 11-22-2021 14:15-0400 Body weight 70.76 kg Viviana Ashton [employer] WORKER.CNM Work Phone: [facility] 11-22-2021 14:15-0400 Diastolic blood pressure 62 mm[Hg] Viviana Ashton [employer] WORKER.CNM Work Phone: [facility] 11-22-2021 14:15-0400 Systolic blood pressure 104 mm[Hg] Viviana Ashton VARGAS.CNM Work Phone: [facility] 05-28-2021 15:04-0400 Diastolic blood pressure 72 mm[Hg] [facility] Work Phone: 05-28-2021 15:04-0400 Heart rate 77 /min [facility] Work Phone: 05-28-2021 15:04-0400 Respiratory rate 14 /min [facility] Work Phone: 05-28-2021 15:04-0400 SaO2% (BldA) [Mass fraction] 98 % [facility] Work Phone: 05-28-2021 15:04-0400 Systolic blood pressure 117 mm[Hg] [facility] Work Phone: 05-28-2021 13:21-0400 Body height 165.1 cm [facility] Work Phone: 05-28-2021 13:21-0400 Body mass index (BMI) [Ratio] 27.7 kg/m2 [facility] Work Phone: 05-28-2021 13:21-0400 Body temperature 97.5 [degF] [facility] Work Phone: 05-28-2021 13:21-0400 Body weight 75.65 kg [facility] Work Phone: Encounters Encounter Date Encounter Type Care Provider Facility Start: 11-03-2024 End: 11-03-2024 Patient encounter procedure Viviana Ashton VARGAS.CNM Work Phone: OB/Gynecology Comment on above: 37 weeks gestation o f (HCC) (Primary Dx); Supervision of high risk in third trimester (HCC); Short interval between pregnancies affecting , antepartum (HCC); History of shoulder dystocia in prior ; Uterine cramping; Heartburn during in third trimester (HCC) Start: 11-03-2024 End: 11-03-2024 ambulatory VIVIANA ASHTON Facility:[facility] Start: 10-24-2024 End: 10-24-2024 Telephone encounter Elvira Guillory APRN.CNM Work Phone: OB/Gynecology Comment on above: Breast Pump Start: 10-18-2024 End: 10-18-2024 ambulatory ELVIRA GUILLORY Facility:[facility] Start: 10-18-2024 End: 10-18-2024 Patient encounter procedure Elvira Guillory APRN.CNM Work Phone: OB/Gynecology Comment on above: Supervision of high risk in third trimester (HCC) (Primary Dx); 34 weeks gestation of (HCC); Short interval between pregnancies affecting , antepartum (HCC); Anemia complicating , third trimester ([facility]); Hx of pre-eclampsia, prior , currently (HCC); History of shoulder dystocia in prior macrosomia dur ing in third trimester, single or unspecified fetus (HCC) (Primary Dx); 34 weeks gestation of ([facility]); Short interval between pregnancies affecting , antepartum ([facility]); Supervision of high risk in third trimester ([facility]); Hx of pre-eclampsia, prior , currently (HCC); History of shoulder dystocia in prior Start: 10-03-2024 End: 10-03-2024 Office outpatient visit 15 minutes Kylee Weiss MD Work Phone: OB/Gynecology Comment on above: 32 weeks gestation o f (HCC) (Primary Dx); Short interval between pregnancies affecting , antepartum (HCC) Start: 10-03-2024 End: 10-03-2024 ambulatory KYLEE WEISS Facility:[facility] Start: 09-29-2024 End: 09-29-2024 Telephone encounter Kylee Butler RN Maternal Medicine Comment on above: Milk Sampler - O ther ([facility]) Start: 09-28-2024 End: 09-28-2024 Patient encounter procedure Nancy Lambert MD Work Phone: OB/Gynecology Comment on above: Supervision of high risk in third trimester (HCC) (Primary Dx); 32 weeks gestation of (HCC); Short interval between pregnancies affecting , antepartum (HCC); Anemia complicating , third trimester (HCC); Hx of pre-eclampsia, prior , currently (HCC); History of shoulder dystocia in prior Start: 09-28-2024 End: 09-28-2024 ambulatory NANCY LAMBERT Facility:[facility] Start: 09-07-2024 End: 09-07-2024 Patient encounter procedure Viviana Ashton APRN.CNM Work Phone: OB/Gynecology Comment on above: 29 weeks gestation o f (HCC) (Primary Dx); Hx of pre-eclampsia, prior , currently (HCC); Short interval between pregnancies affecting , antepartum (HCC) Start: 09-07-2024 End: 09-07-2024 ambulatory Gabriella Hoffman APRN.CNP Work Phone: OB/Gynecology Comment on above: Iron supplement Refill Request Start: 09-07-2024 End: 11-07-2024 Follow-up encounter Gabriella Hoffman APRN.CNP Work Phone: OB/Gynecology Start: 08-15-2024 End: 08-15-2024 Patient encounter procedure Gabriella Hoffman APRN.CNP Work Phone: OB/Gynecology Comment on above: Supervision of high risk in second trimester (HCC) (Primary Dx); 25 weeks gestation of (HCC); Screening for diabetes mellitus; Hx of pre-eclampsia, prior , currently (HCC); History of shoulder dystocia in prior ; Short interval between pregnancies affecting , antepartum (HCC) Start: 08-15-2024 End: 08-15-2024 ambulatory GABRIELLA HOFFMAN Facility:[facility] Start: 07-13-2024 End: 09-12-2024 Follow-up encounter Nancy Lambert MD Work Phone: OB/Gynecology Start: 07-12-2024 End: 07-12-2024 ambulatory [facility] Provider OB/Gynecology Comment on above: Weight Start: 07-12-2024 End: 07-12-2024 E-mail encounter from caregiver [facility] Provider OB/Gynecology Start: 07-12-2024 End: 07-12-2024 Telephone encounter Kylee Butler RN Maternal Medicine Comment on above: Milk Sampler - O ther (PRAF) Start: 07-11-2024 End: 07-11-2024 Patient encounter procedure Whi Tech 1 Outside Collector [facility] [employer] Maternal Medicine Comment on above: Encounter for anatomic survey (HCC) (Primary Dx); 20 weeks gestation of (HCC) Supervision of high risk in second trimester (HCC) (Primary Dx); 20 weeks gestation of (HCC); Hx of pre-eclampsia, prior , currently (HCC); History of shoulder dystocia in prior ; Short interval between pregnancies affecting , antepartum (HCC) Start: 07-11-2024 End: 07-11-2024 ambulatory ELVIRA GUILLORY Facility:[facility] Start: 06-16-2024 End: 06-17-2024 ambulatory Elvira Guillory APRN.CNM Work Phone: OB/Gynecology Comment on above: Meds Start: 06-13-2024 End: 06-13-2024 ambulatory ELVIRA GUILLORY Facility:[facility] Start: 06-13-2024 End: 06-13-2024 Patient encounter procedure Elvira Guillory APRN.CNM Work Phone: OB/Gynecology Comment on above: Supervision of high risk in second trimester (HCC) (Primary Dx); Hx of pre-eclampsia, prior , currently (HCC); History of shoulder dystocia in prior ; 16 weeks gestation of (HCC); Short interval between pregnancies affecting , antepartum (HCC) Start: 06-10-2024 End: 06-10-2024 Refill Elvira Guillory APRN.CNM Work Phone: OB/Gynecology Comment on above: Refill Request Start: 06-09-2024 End: 06-09-2024 Emergency department patient visit No Primary Care Physician -Emergency Department Work Phone: Start: 05-17-2024 End: 05-17-2024 ambulatory ELVIRA GUILLORY Facility:[facility] Start: 05-17-2024 End: 05-17-2024 Patient encounter procedure Whi Tech 1 Outside Collector [facility] Maternal Medicine Comment on above: Encounter for antena dariana screening for malformation using ultrasound (Primary Dx); 12 weeks gestation of Supervision of high risk in second trimester (Primary Dx); 12 weeks gestation of ; Short interval between pregnancies affecting , antepartum; Hx of pre-eclampsia, prior , currently ; History of shoulder dystocia in prior Start: 05-16-2024 End: 09-28-2024 Telephone encounter Elvira Guillory APRN.CNM Work Phone: OB/Gynecology Comment on above: Appointment (Nuchal US) Start: 05-13-2024 End: 07-13-2024 Follow-up encounter Nancy Lambert MD Work Phone: OB/Gynecology Start: 05-09-2024 End: 05-09-2024 ambulatory ELVIRAMIRLANDE GUILLORY Facility:[facility] Start: 05-09-2024 End: 05-09-2024 Telephone encounter Elvira Guillory APRN.CNM Work Phone: OB/Gynecology Comment on above: Question (OB Questio n) Start: 04-30-2024 End: 04-30-2024 Emergency department patient visit Dr. Maxi Pete MD -Emergency Department Work Phone: Start: 04-19-2024 End: 06-19-2024 Follow-up encounter Elvira Guillory APRN.CNM Work Phone: OB/Gynecology Start: 04-12-2024 End: 04-12-2024 Telephone encounter Kylee Butler RN Maternal Medicine Comment on above: Milk Sampler - O ther (PRAF) Start: 04-11-2024 End: 04-11-2024 ambulatory ELVIRA FAIRFIELD Facility:[facility] Start: 04-11-2024 End: 04-11-2024 Patient encounter procedure Elvira Guillory APRN.CNM Work Phone: OB/Gynecology Comment on above: with uncer tain dates, antepartum (Primary Dx); Screening for human papillomavirus (HPV); Screening for cervical cancer; Screening for STDs (sexually transmitted diseases); Hx of pre-eclampsia, prior , currently ; Short interval between pregnancies affecting , antepartum; History of shoulder dystocia in prior ; History of spontaneous Start: 04-08-2024 End: 04-08-2024 Telephone encounter Juju Rothman APRN.CNP Work Phone: [facility] Comment on above: Results; Orders Start: 04-07-2024 End: 04-07-2024 [facility] Facility:[facility] Start: 04-07-2024 End: 04-07-2024 Office outpatient visit 15 minutes Evelyn Mancia APRN.[employer] CONSULTANT Work Phone: [facility] Comment on above: Burning with urinati on (Primary Dx); Vaginal discharge Start: 02-03-2024 End: 02-03-2024 Telephone encounter Elvira Larsen APRN.[employer] CONSULTANT Work Phone: [facility] Comment on above: Results Start: 02-03-2024 End: 02-03-2024 [facility] Facility:[facility] Start: 02-03-2024 End: 02-03-2024 Patient encounter procedure Nurse Exp Care [facility] Work Phone: [facility] Comment on above: Gonorrhea (Primary D x) Start: 02-02-2024 End: 02-02-2024 [facility] Facility:[facility] Start: 02-02-2024 End: 02-02-2024 Patient encounter procedure Elvira Larsen APRN.[employer] CONSULTANT Work Phone: [facility] Comment on above: Suprapubic pressure (Primary Dx); Vaginal discharge Start: 01-05-2024 End: 01-05-2024 Emergency department patient visit Trevin Sanches Facility:[facility] Start: 12-27-2023 End: 12-27-2023 Emergency department patient visit Wade Markham Facility:[facility] Start: 08-24-2023 ambulatory Elvira Guillory APRN.CNM Work Phone: OB/Gynecology Comment on above: Ob Delivery Note Start: 08-24-2023 End: 08-26-2023 Evaluation and management of inpatient Elvira Guillory Facility:[facility] Start: 08-21-2023 ambulatory [facility] Provider OB/Gynecgustabo randolph Comment on above: Induction of Labor - THURSDAY Start: 08-21-2023 E-mail encounter fro tamera caregiver [facility] Provider OB/Gynecology Start: 08-20-2023 End: 08-20-2023 Patient encounter procedure Viviana Ashton APRN.CNM Work Phone: OB/Gynecology Comment on above: Supervision of high risk in third trimester (Primary Dx); Hx of pre-eclampsia, prior , currently ; 38 weeks gestation of Start: 08-12-2023 End: 08-12-2023 Patient encounter procedure Elvira Guillory APRN.CNM Work Phone: OB/Gynecology Comment on above: Hx of pre-eclampsia, prior , currently (Primary Dx); Supervision of high risk in third trimester; 37 weeks gestation of ; Short interval between pregnancies affecting , antepartum; Late care affecting , antepartum; Chlamydia trachomatis infection in mother during first trimester of ; History of nicotine vaping Start: 08-04-2023 End: 08-04-2023 Patient encounter procedure Elvira Guillory APRN.CNTamera Work Phone: OB/Gynecology Comment on above: Hx of pre-eclampsia, prior , currently (Primary Dx); Supervision of high risk in third trimester; 36 weeks gestation of ; Chlamydia trachomatis infection in mother during first trimester of Start: 07-29-2023 End: 07-29-2023 Patient encounter procedure Elvira Guillory APRN.CNM Work Phone: OB/Gynecology Comment on above: Hx of pre-eclampsia, prior , currently (Primary Dx); Supervision of high risk in third trimester; 35 weeks gestation of Start: 07-14-2023 End: 07-14-2023 Patient encounter procedure Elvira Guillory APRN.CNM Work Phone: OB/Gynecology Comment on above: Hx of pre-eclampsia, prior , currently (Primary Dx); Late care affecting , antepartum; Short interval between pregnancies affecting , antepartum; History of marijuana use; History of nicotine vaping; Supervision of high risk in second trimester Start: 07-01-2023 End: 07-01-2023 Patient encounter procedure Elvira Guillory APRN.CNM Work Phone: OB/Gynecology Comment on above: Chlamydia trachomati s infection in mother during first trimester of (Primary Dx); Short interval between pregnancies affecting , antepartum; Late care affecting , antepartum; Abnormal chromosomal and genetic finding on screening mother; History of marijuana use; History of nicotine vaping; Supervision of high risk in second trimester Start: 06-17-2023 End: 06-17-2023 Patient encounter procedure Elvira Guillory APRN.CNM Work Phone: OB/Gynecology Comment on above: 29 weeks gestation o f (Primary Dx); Encounter for supervision of normal in multigravida; Need for vaccination Start: 06-13-2023 End: 06-13-2023 ambulatory [facility] Work Phone: Start: 06-13-2023 End: 06-13-2023 Patient encounter procedure [facility] Work Phone: Start: 06-09-2023 Telephone encounter Milk Sampler RN Obstetrics/Gynecology Comment on above: PRAF Start: 06-03-2023 End: 06-03-2023 Patient encounter procedure Elvira Guillory APRN.CNM Work Phone: OB/Gynecology Comment on above: Encounter for superv ision of normal in multigravida (Primary Dx); 27 weeks gestation of Start: 05-21-2023 End: 05-21-2023 Patient encounter procedure Viviana Ashton APRN.CNM Work Phone: OB/Gynecology Comment on above: 25 weeks gestation o f (Primary Dx); Encounter for supervision of normal in multigravida; Supervision of high risk in second trimester; Hx of pre-eclampsia, prior , currently Start: 05-07-2023 End: 05-07-2023 Patient encounter procedure Viviana Ashton APRN.CNM Work Phone: OB/Gynecology Comment on above: 23 weeks gestation o f (Primary Dx) Start: 04-26-2023 End: 04-26-2023 [facility] Start: 04-10-2023 Telephone encounter Milk Sampler RN Obstetrics/Gynecology Comment on above: PRAF Start: 02-11-2023 End: 02-11-2023 Patient encounter procedure Outside Collector [facility] Work Phone: OB/Gynecology Comment on above: Encounter for (NT) n uchal translucency scan (Primary Dx); Encounter for supervision of normal in multigravida; 11 weeks gestation of 11 weeks gestation o f (Primary Dx); Encounter for supervision of normal in multigravida; Chlamydia trachomatis infection in mother during first trimester of Start: 02-04-2023 End: 02-04-2023 [facility] Start: 02-04-2023 Telephone encounter Viviana oshea APRN.CNTamera Work Phone: OB/Gynecology Comment on above: Question (OB Questio n) (/) Start: 01-30-2023 ambulatory Elvira Guillory APRN.NINO Work Phone: OB/Gynecology Comment on above: Bacterial infection and chlamydia. Start: 01-28-2023 End: 01-28-2023 Patient encounter procedure Elvira Guillory APRN.CNTamera Work Phone: OB/Gynecology Comment on above: with uncer tain dates in first trimester (Primary Dx) Encounter for superv ision of normal in multigravida (Primary Dx); 9 weeks gestation of ; Nausea and vomiting in ; Hx of pre-eclampsia, prior , currently ; Short interval between pregnancies affecting , antepartum; Marijuana use during ; Candidiasis of vagina during ; Supervision of other high risk pregnancies, first trimester; Chlamydial infection Start: 01-25-2023 End: 01-26-2023 [facility] Start: 12-24-2022 ambulatory [facility] Provider INITIAL DE PARTMENT Comment on above: Resource G uide Start: 12-24-2022 E-mail encounter fro m caregiver [facility] Provider [facility] Start: 10-07-2022 End: 10-07-2022 [facility] Work [facility]: Start: 06-28-2022 End: 06-28-2022 Emergency department patient visit [facility] Start: 05-29-2022 ambulatory Elvira Guillory APRN.CNM Work Phone: [facility] Start: 05-29-2022 Patient encounter procedure Elvira Guillory APRN.CNM Work Phone: OB/Gynecology Comment on above: 6 weeks a ppointment Start: 05-27-2022 End: 05-27-2022 [facility] Start: 05-16-2022 End: 05-16-2022 Patient encounter procedure Elvira Guillory APRN.CNM Work Phone: OB/Gynecology Comment on above: Encounter for screen ing for maternal depression (Primary Dx) Start: 04-23-2022 ambulatory Elvira Guillory APRN.CNM Work Phone: OB/Gynecology Comment on above: Ob Delivery Note Start: 04-22-2022 End: 04-23-2022 [facility] Start: 04-21-2022 End: 04-21-2022 Patient encounter procedure Elvira Guillory APRN.CNM Work Phone: OB/Gynecology Comment on above: 39 weeks gestation o f (Primary Dx) Start: 04-15-2022 ambulatory Elvira Guillory APRN.CNM Work Phone: OB/Gynecology Comment on above: Dilapan-s Start: 04-14-2022 End: 04-14-2022 Office outpatient visit 25 minutes Elvira Guillory APRN.CNM Work Phone: OB/Gynecology Comment on above: 38 weeks gestation o f (Primary Dx); Supervision of high risk in third trimester Start: 04-07-2022 End: 04-07-2022 Patient encounter procedure Elviramirlande Guillory APRN.CNM Work Phone: OB/Gynecology Comment on above: 37 weeks gestation o f (Primary Dx); Supervision of high risk in third trimester Start: 03-31-2022 End: 03-31-2022 Patient encounter procedure Elviramanav Guillory APRN.CNM Work Phone: OB/Gynecology Comment on above: 36 weeks gestation o f (Primary Dx) Start: 03-27-2022 End: 03-27-2022 ambulatory Elvira Guillory APRN.CNM Work Phone: [facility] Work Phone: Comment on above: Baby Start: 03-27-2022 End: 03-27-2022 Patient encounter procedure [facility] Start: 03-21-2022 End: 03-21-2022 Patient encounter procedure Berlin Rothman MD Work Phone: OB/Gynecology Comment on above: Late care a ffecting , antepartum (Primary Dx); 34 weeks gestation of Start: 03-06-2022 End: 03-06-2022 Patient encounter procedure Berlin Rothman MD Work Phone: OB/Gynecology Comment on above: Supervision of high risk in third trimester (Primary Dx); 32 weeks gestation of Start: 03-06-2022 Telephone encounter Berlin celis MD Work Phone: OB/Gynecology Comment on above: OB PAIN Start: 02-21-2022 End: 02-21-2022 Patient encounter procedure Elvira Guillory APRN.CNM Work Phone: OB/Gynecology Comment on above: 30 weeks gestation o f (Primary Dx); Need for vaccination Start: 02-16-2022 Telephone encounter Marcos brandon APRN.[employer] CONSULTANT Work Phone: [facility] Comment on above: Results Start: 02-12-2022 ambulatory Elvira Guillory APRN.CNM Work Phone: OB/Gynecology Comment on above: Question regarding U RINE CULTURE LAB USE ON Start: 02-11-2022 End: 02-11-2022 Patient encounter procedure Elvira Guillory APRN.CNM Work Phone: OB/Gynecology Comment on above: 29 weeks gestation o f (Primary Dx) Start: 02-10-2022 End: 02-10-2022 ambulatory [facility] Work Phone: Start: 02-10-2022 End: 02-10-2022 Patient encounter procedure [facility] Start: 02-07-2022 End: 02-07-2022 Patient encounter procedure Elvira Guillory DUST BOX WORKER.CNM Work Phone: OB/Gynecology Comment on above: 28 weeks gestation o f (Primary Dx); Need for vaccination Start: 01-27-2022 ambulatory Viviana cedeno DUST BOX WORKER.CNM Work Phone: OB/Gynecology Comment on above: Question regarding L EAD BLOOD Start: 01-23-2022 ambulatory Viviana cedeno DUST BOX WORKER.CNM Work Phone: OB/Gynecology Comment on above: Lead Start: 01-10-2022 End: 01-10-2022 Patient encounter procedure Yumiko Soto MD Work Phone: OB/Gynecology Comment on above: Hx of pre-eclampsia, prior , currently (Primary Dx); Late care affecting , antepartum; 24 weeks gestation of Start: 12-16-2021 ambulatory Viviana cedeno DUST BOX WORKER.CNM Work Phone: OB/Gynecology Comment on above: Asthma Start: 12-13-2021 End: 12-13-2021 Patient encounter procedure Shayla Wilson MD Work Phone: Maternal Medicine Comment on above: Encounter for anatomic survey (Primary Dx); 20 weeks gestation of 20 weeks gestation o f (Primary Dx) Start: 11-22-2021 End: 11-22-2021 Patient encounter procedure Viviana Ashton DUST BOX WORKER.CNM Work Phone: OB/Gynecology Comment on above: 17 weeks gestation o f (Primary Dx); Asymptomatic bacteriuria during ; Encounter for supervision of other normal in second trimester Start: 11-01-2021 Telephone encounter Theresa forrester MD Work Phone: OB/Gynecology Comment on above: Orders Start: 10-28-2021 Telephone encounter Kenton sotelo MD Work Phone: Maternal Medicine Comment on above: Maternity 21 Results Start: 10-25-2021 Telephone encounter Milk Sampler RN OB/Gynecology Comment on above: Milk Sampler - O ther (PRAF) Start: 10-21-2021 Telephone encounter Viviana oshea DUST BOX WORKER.CNM Work Phone: OB/Gynecology Comment on above: late care Start: 10-21-2021 End: 10-21-2021 Nursing evaluation of patient and report Nurse Pnob [facility] Work Phone: OB/Gynecology Comment on above: Late care a ffecting , antepartum (Primary Dx); Patient request for diagnostic testing; Hx of pre-eclampsia, prior , currently ; Nausea/vomiting in Start: 10-21-2021 End: 04-11-2024 Patient requested procedure Nurse Pnob [facility] Work Phone: [facility] Work Phone: Start: 05-30-2021 Telephone encounter Viviana oshea DUST BOX WORKER.CNM Work Phone: OB/Gynecology Comment on above: Miscarriage Start: 05-28-2021 End: 05-28-2021 Emergency department patient visit [facility] Start: 07-06-2018 End: 07-07-2018 Patient encounter procedure ROSEMARIE JUAN C [facility] Start: 06-22-2018 Patient encounter procedure IMCA Facility:[facility] Procedures Date Procedure Procedure Detail Performing Clinician Start: 11-03-2024 Urnls dip stick/tabl et rgnt non-auto w/o micrscp Viviana Ashton DUST BOX WORKER.CNM Work Phone: Start: 10-18-2024 Urnls dip stick/tabl et rgnt non-auto w/o micrscp Elvira Guillory APRN.CNM Work Phone: Start: 10-18-2024 Us preg uterus after 1st trimest 03/09 gestation Nancy Lambert MD Work Phone: Start: 10-03-2024 Urnls dip stick/tabl et rgnt non-auto w/o micrscp Kylee Weiss MD Work Phone: Start: 09-28-2024 Urnls dip stick/tabl et rgnt non-auto w/o micrscp Nancy Lambert MD Work Phone: Start: 07-11-2024 Us preg uterus after 1st trimest 03/09 gestation Elvira Guillory APRN.CNM Work Phone: Start: 05-17-2024 Us preg uterus after 1st trimest 03/09 gestation Elvira Guillory APRN.CNM Work Phone: Start: 05-09-2024 Antibody screen JANE Y JERZY Comment on above: Order Comment: Speci men Type: BLOOD SPECIMENOrdering Facility: [facility] Address: [address] [place] [address] Performed By: #### T SPN ####CC [facility] BLOOD BANKCLIA [id number] [place] [address] [place] Start: 04-30-2024 Urine culture No Primar y Care Physician Start: 04-11-2024 Us uterus l imited 1/ fetuses Elvira Guillory APRN.CNM Work Phone: Start: 04-07-2024 BACTERIAL VAGINOSIS NAAT Evelyn Mancia DUST BOX WORKER.[employer] CONSULTANT Work Phone: Start: 04-07-2024 Urnls dip stick/tabl et rgnt auto w/o microscopy Evelyn Mancia DUST BOX WORKER.[employer] CONSULTANT Work Phone: Start: 02-02-2024 Urnls dip stick/tabl et rgnt auto w/o microscopy Becky Moore PA-C Work Phone: Start: 08-20-2023 URINE OB DIP B/O Jannette Ashton DUST BOX WORKER.CNM Work Phone: Start: 08-12-2023 URINE OB DIP B/O Jessic a Kahlil DUST BOX WORKER.CNM Work Phone: Start: 08-04-2023 URINE OB DIP B/O Jessic a Kahlil DUST BOX WORKER.CNM Work Phone: Start: 07-29-2023 URINE OB DIP B/O Jessic a Kahlil DUST BOX WORKER.CNM Work Phone: Start: 02-11-2023 URINE OB DIP B/O Jessic a Kahlil DUST BOX WORKER.CNM Work Phone: Start: 02-11-2023 Us nuchal baer slucency 1st gestation Elvira Guillory DUST BOX WORKER.CNM Work Phone: Start: 01-28-2023 BACTERIAL VAGINOSIS NAAT Elvira Guillory APRN.CNM Work Phone: Start: 01-28-2023 End: 01-28-2023 Iadna chlamydia trachomatis amplified probe tq Elvira Guillory APRN.CNM Work Phone: Start: 01-28-2023 Us uterus l imited 1/> fetuses Elvira Guillory APRN.CNM Work Phone: Start: 01-25-2023 Urine culture Start: 05-27-2022 Plain chest X-ray Start: 04-14-2022 URINE OB DIP B/O Jessic a Kahlil JONESN.CNM Work Phone: Start: 04-07-2022 URINE OB DIP B/O Jessic a Kahlil JONESN.CNM Work Phone: Start: 03-31-2022 URINE OB DIP B/O Jessic a Kahlil JONESN.CNM Work Phone: Start: 03-21-2022 URINE OB DIP B/O Berlin Rothman MD Work Phone: Start: 03-06-2022 Urnls dip stick/tabl et rgnt auto w/o microscopy Berlin Rothman MD Work Phone: Start: 02-11-2022 Urnls dip stick/tabl et rgnt auto w/o microscopy Viviana Ashton DUST BOX WORKER.CNM Work Phone: Start: 02-11-2022 URINE OB DIP B/O Jannette Ashton DUST BOX WORKER.CNM Work Phone: Start: 02-07-2022 URINE OB DIP B/O Joanna Guillory DUST BOX WORKER.CNM Work Phone: Start: 01-10-2022 URINE OB DIP B/O Nbassic miriam Guillory DUST BOX WORKER.CNM Work Phone: Start: 12-13-2021 Us preg uterus after 1st trimest 03/09 gestation Theresa Aranda MD Work Phone: Start: 11-22-2021 URINE OB DIP B/O Jannette Ashton DUST BOX WORKER.CNM Work Phone: Start: 05-28-2021 Transvaginal obstetr ic ultrasonography Urine culture Plan of Treatment Date Care Activity Detail Author Start: 06-16-2033 Urine microalbumin profile DTaP,Tdap,Td Vaccine (10 - Td or Tdap) [facility] Start: 02-22-2032 Urine microalbumin profile [facility] Start: 10-25-2030 Urine microalbumin profile DTAP,TDAP,TD (3 - Td or Tdap) [facility] Start: 01-28-2026 Screening for malign ant neoplasm of cervix Pap Testing [facility] Start: 04-11-2025 GC (Gonorrhea) Scree butch (18-24) GC (Gonorrhea) Screening (18) [facility] Start: 04-11-2025 Screening for Chlamy whit trachomatis Chlamydia Screening () [facility] Start: 04-11-2025 Screening for malign ant neoplasm of cervix Cervical Cancer Screening [facility] Start: 04-07-2025 GC (Gonorrhea) Scree butch (18-24) GC (Gonorrhea) Screening (18) [facility] Start: 04-07-2025 Screening for Chlamy whit trachomatis Chlamydia Screening () [facility] Start: 02-01-2025 GC (Gonorrhea) Scree butch (18-) GC (Gonorrhea) Screening (-) [facility] Start: 02-01-2025 Screening for Chlamy whit trachomatis Chlamydia Screening () [facility] Start: 11-25-2024 End: 11-25-2024 Patient encounter procedure 11/25/2024 3:15 PM EDT Routine Office Visit OB/Gynecology [address] [place] [address] Elvira Guillory APRN.CNM [address] [place] [address] OB routine OB/Gynecology Comment on above: OB routine Start: 11-15-2024 End: 11-15-2024 Patient encounter procedure 11/15/2024 3:15 PM EDT Routine Office Visit OB/Gynecology [address] [place] [address] Elvira Guillory APRN.CNM [address] [place] [address] OB routine OB/Gynecology Comment on above: OB routine Start: 11-09-2024 End: 11-09-2024 Patient encounter procedure OB/Gynecology Comment on above: OB routine OB /Growth Start: 11-07-2024 Influenza vaccination [facility] Start: 11-03-2024 End: 11-03-2024 Patient encounter procedure 11/03/2024 3:15 PM EDT Routine Office Visit OB/Gynecology [address] [place] [address] Viviana Ashton APRN.CNM [address] [place] [address] OB routine OB/Gynecology Comment on above: OB routine Start: 10-18-2024 End: 10-18-2024 Patient encounter procedure OB/Gynecology Comment on above: OB routine Growth Start: 10-05-2024 End: 10-05-2024 Patient encounter procedure 10/05/2024 3:15 PM EDT Routine Office Visit OB/Gynecology [address] [place] [address] Viviana Ashton APRN.CNM [address] [place] [address] OB routine OB/Gynecology Comment on above: OB routine Start: 10-03-2024 End: 10-03-2024 Patient encounter procedure 10/03/2024 3:00 PM EDT Routine Office Visit OB/Gynecology [address] [place] [address] Kylee Weiss MD [address] [place] [address] OB routine OB/Gynecology Comment on above: OB routine Start: 09-19-2024 End: 09-19-2024 Patient encounter procedure 09/19/2024 3:15 PM EDT Routine Office Visit OB/Gynecology [address] [place] [address] Elvira Guillory APRN.CNM [address] [place] [address] OB routine OB/Gynecology Comment on above: OB routine Start: 09-07-2024 End: 09-07-2024 Patient encounter procedure 09/07/2024 3:15 PM EDT Routine Office Visit OB/Gynecology [address] [place] [address] Viviana Ashton APRN.[employer] [address] [place] [address] OB routine OB/Gynecology Comment on above: OB routine Start: 08-15-2024 End: 11-14-2024 ANEMIA REFLEX PANEL ANEMIA REFLEX PANEL Lab Routine Supervision of high risk in second trimester (HCC) Expected: 08/15/2024, Expires: 11/14/2024 [facility] Comment on above: Expected: 08/15/2024 , Expires: 11/14/2024 Start: 08-15-2024 End: 08-15-2025 GESTATIONAL GLUCOSE SCREEN, 1-HOUR, 50 GRAM, NON-FASTING GESTATIONAL GLUCOSE SCREEN, 1-HOUR, 50 GRAM, NON-FASTING Lab Routine Supervision of high risk in second trimester (HCC) Screening for diabetes mellitus Expected: 08/15/2024, Expires: 08/15/2025 [facility] Work Phone: Comment on above: Expected: 08/15/2024 , Expires: 08/15/2025 Start: 08-15-2024 End: 08-15-2025 SYPHILIS TREPONEMAL W/REFLEX SYPHILIS TREPONEMAL W/REFLEX Lab Routine Supervision of high risk in second trimester (HCC) Expected: 08/15/2024, Expires: 08/15/2025 [facility] Comment on above: Expected: 08/15/2024 , Expires: 08/15/2025 Start: 08-03-2024 GC (Gonorrhea) Scree butch (18-24) GC (Gonorrhea) Screening (18-24) [facility] Start: 08-03-2024 Screening for Chlamy whit trachomatis Chlamydia Screening (18-24) [facility] Start: 07-11-2024 End: 07-11-2024 Patient encounter procedure [facility] Comment on above: Anatomy scan OB Routine Start: 06-13-2024 End: 06-13-2024 Patient encounter procedure 06/13/2024 2:30 PM EDT Routine Office Visit OB/Gynecology [address] [place] [address] Elvira Guillory APRN.CNM [address] [place] [address] OB Routine OB/Gynecology Comment on above: OB Routine Start: 06-09-2024 Bacteria identified in Urine by Culture Urine Culture [facility] Start: 06-09-2024 End: 06-09-2024 [facility] Start: 05-16-2024 End: 05-16-2024 Patient encounter procedure [facility] Comment on above: Nuchal OB Routine Start: 05-09-2024 End: 05-09-2024 Patient encounter procedure 05/09/2024 2:30 PM EST Routine Office Visit OB/Gynecology [address] [place] [address] Viviana Ashton APRN.CNM [address] [place] [address] 1st OB - LMP 02/17/2024 OB/Gynecology Comment on above: 1st OB - LMP 024 Start: 05-09-2024 End: 08-08-2024 Chromosome 21 trisomy [Presence] in Blood or Tissue by Cytogenetics [facility] Work Phone: Comment on above: Expected: 05/09/2024 , Expires: 08/08/2024 Start: 04-30-2024 [facility] Start: 04-11-2024 End: 07-11-2024 ANEMIA REFLEX PANEL ANEMIA REFLEX PANEL Lab Routine with uncertain dates, antepartum Expected: 04/11/2024, Expires: 07/11/2024 [facility] Work Phone: Comment on above: Expected: 04/11/2024 , Expires: 07/11/2024 Start: 04-11-2024 End: 07-11-2024 Comprehensive metabolic 2000 panel - Serum or Plasma COMPREHENSIVE METABOLIC PANEL Lab Routine Hx of pre-eclampsia, prior , currently Expected: 04/11/2024, Expires: 07/11/2024 [facility] Comment on above: Expected: 04/11/2024 , Expires: 07/11/2024 Start: 04-11-2024 End: 07-11-2024 Hemoglobin A1c in Blood HEMOGLOBIN A1C Lab Routine with uncertain dates, antepartum Expected: 04/11/2024, Expires: 07/11/2024 [facility] Comment on above: Expected: 04/11/2024 , Expires: 07/11/2024 Start: 04-11-2024 End: 07-11-2024 Hepatitis B virus surface Ag [Presence] in Serum HEPATITIS B SURFACE ANTIGEN Lab Routine with uncertain dates, antepartum Expected: 04/11/2024, Expires: 07/11/2024 [facility] Comment on above: Expected: 04/11/2024 , Expires: 07/11/2024 Start: 04-11-2024 End: 07-11-2024 Hepatitis C virus Ab [Presence] in Serum HEPATITIS C ANTIBODY IA WITH CONFIRMATION Lab Routine with uncertain dates, antepartum Expected: 04/11/2024, Expires: 07/11/2024 [facility] Comment on above: Expected: 04/11/2024 , Expires: 07/11/2024 Start: 04-11-2024 End: 07-11-2024 HIV 1+2 Ab [Presence] in Serum or Plasma by Immunoassay HIV 1/2 COMBO WITH REFLEX TO DIFFERENTIATION Lab Routine with uncertain dates, antepartum Expected: 04/11/2024, Expires: 07/11/2024 [facility] Comment on above: Expected: 04/11/2024 , Expires: 07/11/2024 Start: 04-11-2024 End: 04-11-2025 OBSTETRIC ULTRASOUND WHI OBSTETRIC ULTRASOUND WHI Anc Imaging Routine with uncertain dates, antepartum Expected: 04/11/2024, Expires: 04/11/2025 [facility] Comment on above: Expected: 04/11/2024 , Expires: 04/11/2025 Start: 04-11-2024 End: 07-11-2024 Protein/Creatinine [Mass Ratio] in Urine PROTEIN / CREATININE RATIO Lab Routine Hx of pre-eclampsia, prior , currently Expected: 04/11/2024, Expires: 07/11/2024 [facility] Comment on above: Expected: 04/11/2024 , Expires: 07/11/2024 Start: 04-11-2024 End: 07-11-2024 RUBELLA IGG ANTIBODY RUBELLA IGG ANTIBODY Lab Routine with uncertain dates, antepartum Expected: 04/11/2024, Expires: 07/11/2024 [facility] Comment on above: Expected: 04/11/2024 , Expires: 07/11/2024 Start: 04-11-2024 End: 07-11-2024 SYPHILIS TREPONEMAL W/REFLEX SYPHILIS TREPONEMAL W/REFLEX Lab Routine with uncertain dates, antepartum Expected: 04/11/2024, Expires: 07/11/2024 [facility] Comment on above: Expected: 04/11/2024 , Expires: 07/11/2024 Start: 04-11-2024 End: 07-11-2024 TYPE + SCREEN TYPE + SCREEN Blood Bank Routine with uncertain dates, antepartum Expected: 04/11/2024, Expires: 07/11/2024 [facility] Comment on above: Expected: 04/11/2024 , Expires: 07/11/2024 Start: 04-11-2024 End: 07-11-2024 Urate [Mass/volume] in Serum or Plasma URIC ACID Lab Routine Hx of pre-eclampsia, prior , currently Expected: 04/11/2024, Expires: 07/11/2024 [facility] Comment on above: Expected: 04/11/2024 , Expires: 07/11/2024 Start: 04-11-2024 End: 04-11-2024 Patient encounter procedure OB/Gynecology Comment on above: 1st OB - LMP 024 Start: 03-04-2024 GC (Gonorrhea) Scree butch (18-24) GC (Gonorrhea) Screening (18-24) [facility] Start: 03-04-2024 Screening for Chlamy whit trachomatis Chlamydia Screening (18-24) [facility] Start: 01-29-2024 Chlamydia Screening (18-24) Chlamydia Screening (18-24) [facility] Start: 01-29-2024 GC (Gonorrhea) Scree butch (18-24) GC (Gonorrhea) Screening (18-24) [facility] Start: 01-29-2024 Screening for malign ant neoplasm of cervix Cervical Cancer Screening [facility] Start: 11-08-2023 Covid-19 Vaccine ( season) Covid-19 Vaccine ( season) [facility] Start: 11-08-2023 Influenza vaccination [facility] Start: 09-15-2023 End: 09-15-2023 Patient encounter procedure 09/15/2023 1:00 PM EDT Office Visit OB/Gynecology [address] [place] [address] Elvira Guillory APRN.CNM [address] [place] [address] PP OB/Gynecology Comment on above: PP Start: 08-25-2023 End: 08-25-2023 Patient encounter procedure 08/25/2023 2:30 PM EDT Routine Office Visit OB/Gynecology [address] [place] [address] Elvira Guillory APRN.CNM [address] [place] [address] OB OB/Gynecology Comment on above: OB Start: 08-20-2023 End: 08-20-2023 Patient encounter procedure 08/20/2023 2:30 PM EDT Routine Office Visit OB/Gynecology [address] [place] [address] Viviana Ashton APRN.[employer] [address] [place] [address] OB OB/Gynecology Comment on above: OB Start: 08-12-2023 End: 08-12-2023 Patient encounter procedure 08/12/2023 3:15 PM EDT Routine Office Visit OB/Gynecology [address] [place] [address] Elvira Guillory APRN.CNM [address] [place] [address] OB OB/Gynecology Comment on above: OB Start: 08-05-2023 End: 08-05-2023 Patient encounter procedure 08/05/2023 1:10 PM EDT Routine Office Visit OB/Gynecology [address] [place] [address] Kylee Weiss MD [address] [place] [address] OB OB/Gynecology Comment on above: OB Start: 08-04-2023 End: 08-04-2023 Patient encounter procedure 08/04/2023 11:30 AM EDT Routine Office Visit OB/Gynecology [address] [place] [address] Elvira Guillory APRN.CNM [address] [place] [address] OB OB/Gynecology Comment on above: OB Start: 07-29-2023 End: 07-29-2023 Patient encounter procedure 07/29/2023 11:15 AM EDT Routine Office Visit OB/Gynecology [address] [place] [address] Elvira Guillory APRN.CNM [address] [place] [address] Ob OB/Gynecology Comment on above: Ob Start: 07-14-2023 End: 07-14-2023 Patient encounter procedure 07/14/2023 3:15 PM EDT Routine Office Visit OB/Gynecology [address] [place] [address] Elvira Guillory APRN.[employer] [address] [place] [address] ob OB/Gynecology Comment on above: ob Start: 06-13-2023 Nonstress test [facility] Start: 06-13-2023 Obstetric monitoring [facility] Start: 06-13-2023 Vital signs measurements [facility] Start: 06-13-2023 [facility] Start: 06-13-2023 Patient discharge [facility] Start: 05-21-2023 End: 08-20-2023 CBC W Auto Differential panel - Blood CBC + DIFF Lab Routine 25 weeks gestation of Encounter for supervision of normal in multigravida Expected: 05/21/2023, Expires: 08/20/2023 [facility] Work Phone: Comment on above: Expected: 05/21/2023 , Expires: 08/20/2023 Start: 05-21-2023 End: 08-20-2023 GEST GLUC SCREEN, 1-HR, 50 GM, NON-FASTING GEST GLUC SCREEN, 1-HR, 50 GM, NON-FASTING Lab Routine 25 weeks gestation of Encounter for supervision of normal in multigravida Expected: 05/21/2023, Expires: 08/20/2023 [facility] Work Phone: Comment on above: Expected: 05/21/2023 , Expires: 08/20/2023 Start: 05-21-2023 End: 08-20-2023 SYPHILIS TOTAL W/REFLEX SYPHILIS TOTAL W/REFLEX Lab Routine 25 weeks gestation of Encounter for supervision of normal in multigravida Expected: 05/21/2023, Expires: 08/20/2023 [facility] Work Phone: Comment on above: Expected: 05/21/2023 , Expires: 08/20/2023 Start: 04-26-2023 [facility] Start: 03-09-2023 Behavioral Health Screening Behavioral Health Screening [facility] Start: 03-09-2023 Depression Assessment Depression Ass essment [facility] Start: 02-11-2023 End: 05-13-2023 CARRIER SCREEN, STANDARD [facility] Work Phone: Comment on above: Expected: 02/11/2023 , Expires: 05/13/2023 Start: 02-11-2023 End: 05-13-2023 Chromosome 21 trisomy [Presence] in Blood or Tissue by Cytogenetics [facility] Work Phone: Comment on above: Expected: 02/11/2023 , Expires: 05/13/2023 Start: 02-04-2023 [facility] Start: 01-28-2023 End: 2023 CBC panel - Blood by Automated count CBC Lab Routine Encounter for supervision of normal in multigravida 9 weeks gestation of Expected: 01/28/2023, Expires: 2023 [facility] Work Phone: Comment on above: Expected: 01/28/2023 , Expires: 2023 Start: 01-28-2023 End: 2023 HEMOGLOBIN EVALUATION CASCADE HEMOGLOBIN EVALUATION CASCADE Lab Routine Encounter for supervision of normal in multigravida 9 weeks gestation of Expected: 01/28/2023, Expires: 2023 [facility] Work Phone: Comment on above: Expected: 01/28/2023 , Expires: 2023 Start: 01-28-2023 End: 2023 Hepatitis B virus surface Ag [Presence] in Serum HEP B SURF AG SCRN Lab Routine Encounter for supervision of normal in multigravida 9 weeks gestation of Expected: 01/28/2023, Expires: 2023 [facility] Work Phone: Comment on above: Expected: 01/28/2023 , Expires: 2023 Start: 01-28-2023 End: 2023 Hepatitis C virus Ab [Presence] in Serum HEPATITIS C ANTIBODY IA WITH CONFIRMATION Lab Routine Encounter for supervision of normal in multigravida 9 weeks gestation of Expected: 01/28/2023, Expires: 2023 [facility] Work Phone: Comment on above: Expected: 01/28/2023 , Expires: 2023 Start: 01-28-2023 End: 2023 HIV 1+2 Ab [Presence] in Serum or Plasma by Immunoassay HIV 1 2 COMBO(AG/AB),WITH REFLEX TO DIFFERENTIATION Lab Routine Encounter for supervision of normal in multigravida 9 weeks gestation of Expected: 01/28/2023, Expires: 2023 [facility] Work Phone: Comment on above: Expected: 01/28/2023 , Expires: 2023 Start: 01-28-2023 End: 01-29-2024 NUCHAL TRANSLUCENCY WHI NUCHAL TRANSLUCENCY WHI Anc Imaging Routine Encounter for supervision of normal in multigravida 9 weeks gestation of Expected: 01/28/2023, Expires: 01/29/2024 [facility] Work Phone: Comment on above: Expected: 01/28/2023 , Expires: 01/29/2024 Start: 01-28-2023 End: 01-29-2024 OBSTETRIC ULTRASOUND WHI OBSTETRIC ULTRASOUND WHI Anc Imaging Routine Encounter for supervision of normal in multigravida 9 weeks gestation of Expected: 01/28/2023, Expires: 01/29/2024 [facility] Work Phone: Comment on above: Expected: 01/28/2023 , Expires: 01/29/2024 Start: 01-28-2023 End: 2023 RUBELLA IGG AB RUBELLA IGG AB Lab Routine Encounter for supervision of normal in multigravida 9 weeks gestation of Expected: 01/28/2023, Expires: 2023 [facility] Work Phone: Comment on above: Expected: 01/28/2023 , Expires: 2023 Start: 01-28-2023 End: 2023 SYPHILIS TOTAL W/REFLEX SYPHILIS TOTAL W/REFLEX Lab Routine Encounter for supervision of normal in multigravida 9 weeks gestation of Expected: 01/28/2023, Expires: 2023 [facility] Work Phone: Comment on above: Expected: 01/28/2023 , Expires: 2023 Start: 01-28-2023 End: 2023 TYPE + SCREEN TYPE + SCREEN Blood Bank Routine Encounter for supervision of normal in multigravida 9 weeks gestation of Expected: 01/28/2023, Expires: 2023 [facility] Work Phone: Comment on above: Expected: 01/28/2023 , Expires: 2023 Start: 01-26-2023 [facility] Start: 01-25-2023 Bacteria identified in Urine by Culture Urine Culture [facility] Start: 11-07-2022 Covid-19 Vaccine ( season) Covid-19 Vaccine ( season) [facility] Start: 11-07-2022 Influenza vaccination Influenza Vacc ine (#1) [facility] Start: 10-24-2022 CHLAMYDIA SCREENING () CHLAMYDIA SCREENING () [facility] Start: 10-24-2022 GC (GONORRHEA) MARCO A MAJANO () GC (GONORRHEA) SCREENING () [facility] Start: 06-28-2022 [facility] Start: 05-27-2022 [facility] Start: 2022 PAP TESTING PAP TESTING [facility] Start: 04-23-2022 Consultation [facility] Start: 04-23-2022 Patient discharge [facility] Start: 04-22-2022 Administration of medication [facility] Start: 04-22-2022 Application of ice collar, cap or bag [facility] Start: 04-22-2022 Catheterization of vein [facility] Start: 04-22-2022 Introduction of urin delfin catheter [facility] Start: 04-22-2022 Measuring intake and output [facility] Start: 04-22-2022 Notification of physician [facility] Start: 04-22-2022 Procedure discontinued [facility] Start: 04-22-2022 Provision of activit y privileges [facility] Start: 04-22-2022 Vital signs measurements [facility] Start: 04-22-2022 [facility] Start: 04-22-2022 Admission procedure [facility] Start: 03-27-2022 [facility] Start: 03-27-2022 Nonstress test [facility] Start: 03-27-2022 Obstetric monitoring [facility] Start: 03-27-2022 Vital signs measurements [facility] Start: 03-27-2022 [facility] Start: 03-27-2022 Patient discharge [facility] Start: 03-09-2022 DEPRESSION ASSESSMENT DEPRESSION ASS ESSMENT [facility] Start: 02-10-2022 Nonstress test [facility] Start: 02-10-2022 Obstetric monitoring [facility] Start: 02-10-2022 Vital signs measurements [facility] Start: 02-10-2022 [facility] Start: 02-10-2022 Patient discharge [facility] Start: 01-10-2022 End: 03-12-2022 CBC W Auto Differential panel - Blood CBC + DIFF Lab Routine 24 weeks gestation of Expected: 01/10/2022, Expires: 03/12/2022 [facility] Work Phone: Comment on above: Expected: 01/10/2022 , Expires: 03/12/2022 Start: 01-10-2022 End: 03-12-2022 GEST GLUC SCREEN, 1-HR, 50 GM, NON-FASTING GEST GLUC SCREEN, 1-HR, 50 GM, NON-FASTING Lab Routine 24 weeks gestation of Expected: 01/10/2022, Expires: 03/12/2022 [facility] Work Phone: Comment on above: Expected: 01/10/2022 , Expires: 03/12/2022 Start: 01-10-2022 End: 03-12-2022 SYPHILIS TOTAL W/REFLEX SYPHILIS TOTAL W/REFLEX Lab Routine 24 weeks gestation of Expected: 01/10/2022, Expires: 03/12/2022 [facility] Work Phone: Comment on above: Expected: 01/10/2022 , Expires: 03/12/2022 Start: 11-22-2021 End: 01-22-[address] [facility] Work Phone: Comment on above: Expected: 11/22/2021 , Expires: 01/22/2022 Start: 11-07-2021 Influenza vaccination INFLUENZA (#1) [facility] Start: 06-07-2021 CHLAMYDIA SCREENING (18-24) CHLAMYDIA SCREENING (18-24) [facility] Start: 06-07-2021 GC (GONORRHEA) SCREE BUTCH (18-24) GC (GONORRHEA) SCREENING (18-24) [facility] Start: 05-30-2021 End: 07-30-2021 Choriogonadotropin.beta subunit [Units/volume] in Serum or Plasma HCG QUANTITATIVE Lab Routine Missed menses Expected: 05/30/2021, Expires: 07/30/2021 [facility] Work Phone: Comment on above: Expected: 05/30/2021 , Expires: 07/30/2021 Start: 03-09-2021 DEPRESSION ASSESSMENT DEPRESSION ASS ESSMENT [facility] Start: 2019 Anxiety Screening Anxiety Screening [facility] Start: 2019 Depression Screening Depression Scre ening [facility] Start: 2017 Meningococcal B Vacc ine (1 of 2 - Standard) Meningococcal B Vaccine (1 of 2 - Standard) [facility] Start: 2017 Meningococcal B Vacc ine: Consider Based On Risk (1 of 2 - Patient Seeks Protection) Meningococcal B Vaccine: Consider Based On Risk (1 of 2 - Patient Seeks Protection) [facility] Start: 2016 HPV Vaccine (1 - 3-d ose series) HPV Vaccine (1 - 3-dose series) [facility] Start: 2015 PEDS TO ADULT TRANSI TION ANNUAL ASSESSMENT PEDS TO ADULT TRANSITION ANNUAL ASSESSMENT [facility] Start: 2013 Adult depression screening assessment DEPRESSION SCREENING [facility] Start: 2013 PEDS TO ADULT TRANSI TION INITIAL DISCUSSION PEDS TO ADULT TRANSITION INITIAL DISCUSSION [facility] Start: 2012 HPV VACCINE (1 - 2-d ose series) HPV VACCINE (1 - 2-dose series) [facility] Start: 2011 MENINGOCOCCAL B: Con transport aircrewman based on risk (1 of 2 - Risk Bexsero 2-dose series) MENINGOCOCCAL B: Consider based on risk (1 of 2 - Risk Bexsero 2-dose series) [facility] Start: 2010 HPV Vaccine (1 - 2-d ose series) HPV Vaccine (1 - 2-dose series) [facility] Start: 2006 COVID-19 VACCINE (1) COVID-19 VACCIN E (1) [facility] Start: 2001 COVID-19 VACCINE (#1) COVID-19 VACCI NE (#1) [facility] Start: 2001 HEPATITIS B (1 of 3 - 3-dose series) HEPATITIS B (1 of 3 - 3-dose series) [facility] Bacteria identified in Urine by Culture URINE CULTURE Microbiology Routine 17 weeks gestation of Asymptomatic bacteriuria during Encounter for supervision of other normal in second trimester 11/22/2021 2:47 PM [facility] Work Phone: Bacteria identified in Urine by Culture URINE CULTURE Microbiology Routine 20 weeks gestation of 12/13/2021 11:28 AM [facility] Work Phone: Bacteria identified in Urine by Culture URINE CULTURE Microbiology Routine 29 weeks gestation of 02/11/2022 1:06 PM [facility] Work Phone: Bacteria identified in Urine by Culture Urine Culture [facility] Bacteria identified in Urine by Culture URINE CULTURE Microbiology Routine Suprapubic pressure 02/02/2024 12:22 PM [facility] Work Phone: Bacteria identified in Urine by Culture BACTERIAL CULTURE, URINE Microbiology Routine Burning with urination 04/07/2024 11:26 AM [facility] Work Phone: Bacteria identified in Urine by Culture BACTERIAL CULTURE, URINE Microbiology Routine with uncertain dates, antepartum 04/11/2024 1:46 PM [facility] Bacteria identified in Urine by Culture BACTERIAL CULTURE, URINE Microbiology Routine 20 weeks gestation of ([facility]) 07/11/2024 2:35 PM [facility] Work Phone: BACTERIAL VAGINOSIS NAAT BACTERI AL VAGINOSIS NAAT Lab Routine Suprapubic pressure Vaginal discharge 02/02/2024 12:22 PM [facility] BACTERIAL VAGINOSIS NAAT BACTERI AL VAGINOSIS NAAT Lab Routine with uncertain dates, antepartum Screening for STDs (sexually transmitted diseases) 04/11/2024 1:46 PM [facility] ALFRED/TRICHOMONAS NAAT ALFRED /TRICHOMONAS NAAT Lab Routine Suprapubic pressure Vaginal discharge 02/02/2024 12:22 PM [facility] ALFRED/TRICHOMONAS NAAT ALFRED /TRICHOMONAS NAAT Lab Routine Vaginal discharge 04/07/2024 11:26 AM [facility] ALFRED/TRICHOMONAS NAAT ALFRED /TRICHOMONAS NAAT Lab Routine with uncertain dates, antepartum Screening for STDs (sexually transmitted diseases) 04/11/2024 1:46 PM [facility] Chlamydia trachomatis+Neisseria gonorrhoeae DNA [Presence] in Unspecified specimen by SANDIP with probe detection GONORRHEA/CHLAMYDIA NAAT Lab Routine Hx of pre-eclampsia, prior , currently Supervision of high risk in third trimester 36 weeks gestation of 08/04/2023 11:25 AM EDT [facility] Chlamydia trachomatis+Neisseria gonorrhoeae DNA [Presence] in Unspecified specimen by SANDIP with probe detection GONORRHEA/CHLAMYDIA NAAT Lab Routine Suprapubic pressure Vaginal discharge 02/02/2024 12:22 PM EST [facility] Chlamydia trachomatis+Neisseria gonorrhoeae DNA [Presence] in Unspecified specimen by SANDIP with probe detection GONORRHEA/CHLAMYDIA NAAT Lab Routine Vaginal discharge 04/07/2024 11:26 AM [facility] Chlamydia trachomatis+Neisseria gonorrhoeae DNA [Presence] in Unspecified specimen by SANDIP with probe detection GONORRHEA/CHLAMYDIA NAAT Lab Routine with uncertain dates, antepartum Screening for STDs (sexually transmitted diseases) 04/11/2024 1:46 PM [facility] OBSTETRIC ULTRASOUND WHI OBSTETR IC ULTRASOUND WHI Anc Imaging Routine Late care Ordered: 10[facility]21/[facility] [facility] Work Phone: Comment on above: Ordered: 10/21/2021 End: 12-27-2024 OBSTETRIC ULTRASOUND [facility] OBSTETRIC ULTRASOUND [facility] Anc Imaging Routine 32 weeks gestation of (HCC) Short interval between pregnancies affecting , antepartum (HCC) Supervision of high risk in third trimester (HCC) Hx of pre-eclampsia, prior , currently (HCC) History of shoulder dystocia in prior Every 3 weeks for 3 Occurrences starting 09/28/2024 until 12/27/2024 [facility] Work Phone: Comment on above: Every 3 weeks for 3 Occurrences starting 09/28/2024 until 12/27/2024 PAP TEST PAP TEST Lab Lavern musee Encounter for supervision of normal in multigravida 9 weeks gestation of 01/28/2023 2:23 PM [facility] Work Phone: PAP TEST PAP TEST Lab Lavern bell with uncertain dates, antepartum Screening for human papillomavirus (HPV) Screening for cervical cancer 04/11/2024 1:46 PM [facility] Patient Education [facility] Work Phone: Patient referral [facility] Work Phone: ROUTINE, GR OUP B STREP PCR ROUTINE, GROUP B STREP PCR Microbiology Routine 36 weeks gestation of 03/31/2022 11:[address] [facility] Work Phone: ROUTINE, GR OUP B STREP PCR ROUTINE, GROUP B STREP PCR Microbiology Routine Hx of pre-eclampsia, prior , currently Supervision of high risk in third trimester 36 weeks gestation of 08/04/2023 11:[address] [facility] Work Phone: ROUTINE, GR OUP B STREPTOCOCCUS BY PCR ROUTINE, GROUP B STREPTOCOCCUS BY PCR Microbiology Routine 37 weeks gestation of (HCC) Short interval between pregnancies affecting , antepartum (HCC) 11/03/2024 3:[address] [facility] Work Phone: Urine culture [facility] URINE OB DIP B/O URINE OB DIP B/ O Lab Routine 20 weeks gestation of Ordered: 12/13/2021 [facility] Work Phone: Comment on above: Ordered: 12/13/2021 URINE OB DIP B/O URINE OB DIP B/ O Lab Routine 30 weeks gestation of Ordered: 02/21/2022 [facility] Work Phone: Comment on above: Ordered: 02/21/2022 URINE OB DIP B/O URINE OB DIP B/ O Lab Routine 39 weeks gestation of Ordered: 04/21/2022 [facility] Work Phone: Comment on above: Ordered: 04/21/[address] [facility] Immunizations Immunization Date Immunization Notes Care Provider Morenita miranda 06-17-2023 tetanus toxoid, redu christian diphtheria toxoid, and acellular pertussis vaccine, adsorbed Elvira Guillory DUST BOX WORKER.CNM Work Phone: [facility] 02-21-2022 tetanus toxoid, redu christian diphtheria toxoid, and acellular pertussis vaccine, adsorbed Elvira Guillory DUST BOX WORKER.CNM Work Phone: [facility] 12-06-2020 Influenza virus vaccine [facility] 12-06-2020 influenza, injectabl e, quadrivalent, contains preservative Viviana Plotts DUST BOX WORKER.CNM Work Phone: [facility] 12-06-2020 influenza virus vaccine, unspecified formulation [facility] Provider [facility] 10-25-2020 tetanus toxoid, redu christian diphtheria toxoid, and acellular pertussis vaccine, adsorbed [facility] 08-16-2018 tetanus toxoid, redu christian diphtheria toxoid, and acellular pertussis vaccine, adsorbed Viviana Plotts DUST BOX WORKER.CNM Work Phone: [facility] 11-27-2017 tetanus toxoid, redu christian diphtheria toxoid, and acellular pertussis vaccine, adsorbed Viviana Plotts DUST BOX WORKER.CNM Work Phone: [facility] 09-19-2005 diphtheria, tetanus toxoids and acellular pertussis vaccine, unspecified formulation Viviana Plotts DUST BOX WORKER.CNM Work Phone: [facility] 09-19-2005 measles, mumps and rubella virus vaccine Viviana Plotts DUST BOX WORKER.CNM Work Phone: [facility] 09-19-2005 poliovirus vaccine, inactivated Viviana Plotts DUST BOX WORKER.CNM Work Phone: [facility] 10-13-2002 haemophilus influenz ae type b vaccine, HbOC conjugate Viviana Plotts DUST BOX WORKER.CNM Work Phone: [facility] 10-13-2002 measles, mumps and rubella virus vaccine Viviana Plotts DUST BOX WORKER.CNM Work Phone: [facility] 10-13-2002 pneumococcal conjuga te vaccine, 7 valent Viviana Plotts DUST BOX WORKER.CNM Work Phone: [facility] 10-13-2002 varicella virus vaccine Cour tney Plotts DUST BOX WORKER.CNM Work Phone: [facility] 2001 diphtheria, tetanus toxoids and acellular pertussis vaccine, unspecified formulation Viviana Plotts DUST BOX WORKER.CNM Work Phone: [facility] 2001 haemophilus influenz ae type b vaccine, HbOC conjugate Viviana Plotts DUST BOX WORKER.CNM Work Phone: [facility] 2001 hepatitis B vaccine, pediatric or pediatric/adolescent dosage Viviana Plotts DUST BOX WORKER.CNM Work Phone: [facility] 2001 pneumococcal conjuga te vaccine, 7 valent Viviana Plotts DUST BOX WORKER.CNM Work Phone: [facility] 2001 poliovirus vaccine, inactivated Viviana Plotts DUST BOX WORKER.CNM Work Phone: [facility] 2001 diphtheria, tetanus toxoids and acellular pertussis vaccine, unspecified formulation Viviana Plotts DUST BOX WORKER.CNM Work Phone: [facility] 2001 haemophilus influenz ae type b vaccine, HbOC conjugate Viviana Plotts DUST BOX WORKER.CNM Work Phone: [facility] 2001 hepatitis B vaccine, pediatric or pediatric/adolescent dosage Viviana Plotts DUST BOX WORKER.CNM Work Phone: [facility] 2001 pneumococcal conjuga te vaccine, 7 valent Viviana Plotts DUST BOX WORKER.CNM Work Phone: [facility] 2001 poliovirus vaccine, inactivated Viviana Plotts DUST BOX WORKER.CNM Work Phone: [facility] Payers Date Payer Category Payer Self-pay [id number] 2022 Medicaid [id number] 2018 Medicaid [employer] [place] [id number] 2018-Present [phone] [address] [address] [place] [address] Medicaid [id number] 2018 Medicaid [id number] 1975 Unknown [id number] 1975 Unknown [id number] Unknown [id number] Unknown [id number] Unknown [id number] Unknown [id number] Unknown [id number] Social History Date Type Detail Facility [facility] Work Phone: Start: 05-28-2021 End: 04-26-2023 Tobacco smoking status UTIS Unknown if ever smoked [facility] Start: 2001 Sex Assigned At Female [facility] Start: 07-29-2018 End: 10-24-2021 Tobacco smoking status NHIS Never smoked tobacco [facility] Work Phone: Start: 07-29-2018 End: 10-24-2021 Tobacco use and exposure Smokeless tobacco non-user [facility] Work Phone: Start: 02-28-2021 End: 08-14-2022 Alcohol intake Lifetime non-drinker (finding) [facility] Start: 12-20-2018 History SDOH Alcohol Frequency 1 [facility] Start: 06-07-2020 Education 10 [facility] Start: 2001 Sex Assigned At Not on file C [facility] Start: 08-04-2021 [facility] Start: 10-11-2021 End: 02-07-2022 Exposure to SARS-CoV-2 (event) Not sure [facility] Work Phone: Start: 12-20-2018 End: 01-21-2023 History of Social function [facility] Start: 12-20-2018 End: 01-21-2023 Alcohol Use Disorder Identification Test - Consumption [AUDIT-C] [facility] How often to you hav e a drink containing alcohol? Never [facility] Start: 06-17-2018 Average Number of Drinks Not on file [facility] Start: 01-28-2023 End: 09-07-2024 Alcohol intake Ex-drinker (finding) [facility] Start: 04-08-2024 Gender identity Identifies as female gender (finding) [facility] Start: 04-08-2024 Sexual orientation Heterosexual (fin ding) [facility] Start: 06-09-2024 Tobacco smoking stat us NHIS Ex-smoker (finding) [facility] Start: 06-09-2024 Sex Female (finding) [facility] NEGATED: Highlighted row [facility] Goals Date Patient Goal Desired Activity /State Personal health goal Personal health goal Mental Status Date Assessment Result Facility 05-27-2022 Cognitive function Voice/Name [facility] Work Phone: Clinical Notes 08-11-2018 to 11-03-2024 Quick Notes - Viviana Ashton APRN.[facility] 11/03/2024 2:59 PM EDTPrenatal Quick Notes - Viviana Ashton APRN.[facility] - 11/03/2024 2:59 PM EDTPatient InstructionsPatient Instructions Note Date & Type Note Facility 11-03-2024 Progress note Formatting of t his note might be different from the original. S: Staci Price is a 24 year old female who presents at 37 weeks gestation for a routine visit. Positive movements. C/O cramps that continue to increase at bedtime and sometimes wake her up. Does not time contractions. Requesting CE today. Denies headache, visual changes, chest pain, shortness of breath, vaginal bleeding, leakage of fluid, or dysuria. SENSITIVE EXAMINATION CONSENT: The sensitive examination was discussed with the Patient or Patient's Authorized Telephone Betting Clerk. As applicable, any other physician, advance practice provider, medical student, or other health professional student that will be observing or involved in the sensitive examination for educational or training purposes was discussed with the Patient or Authorized Telephone Betting Clerk. The Patient or Authorized Telephone Betting Clerk has agreed to proceed with the sensitive examination. O: See flow sheet Gen: No apparent distress Abd: Gravid, nontender ASSESSMENT/PLAN: 1. 37 weeks gestation of 2. Supervision of high risk in third trimester 3. Short interval between pregnancies affecting 4. History of shoulder dystocia in prior 5. Heartburn in 6. History of preeclampsia - No elevated blood pressures - No relief from Pepcid- D/C - RX Protonix 20 mg XR PO daily sent - CE /- posterior - GBS collected today - Growth US next week due to hx of shoulder dystocia - RTO 1 week or sooner if needed Viviana Ashton APRN.CNM [facility] 11-03-2024 Miscellaneous Notes Formattin g of this note might be different from the original. S: Staci Price is a 24 year old female who presents at 37 weeks gestation for a routine visit. Positive movements. C/O cramps that continue to increase at bedtime and sometimes wake her up. Does not time contractions. Requesting CE today. Denies headache, visual changes, chest pain, shortness of breath, vaginal bleeding, leakage of fluid, or dysuria. SENSITIVE EXAMINATION CONSENT: The sensitive examination was discussed with the Patient or Patient's Authorized Telephone Betting Clerk. As applicable, any other physician, advance practice provider, medical student, or other health professional student that will be observing or involved in the sensitive examination for educational or training purposes was discussed with the Patient or Authorized Telephone Betting Clerk. The Patient or Authorized Telephone Betting Clerk has agreed to proceed with the sensitive examination. O: See flow sheet Gen: No apparent distress Abd: Gravid, nontender ASSESSMENT/PLAN: 1. 37 weeks gestation of 2. Supervision of high risk in third trimester 3. Short interval between pregnancies affecting 4. History of shoulder dystocia in prior 5. Heartburn in 6. History of preeclampsia - No elevated blood pressures - No relief from Pepcid- D/C - RX Protonix 20 mg XR PO daily sent - CE /-3 posterior - GBS collected today - Growth US next week due to hx of shoulder dystocia - RTO 1 week or sooner if needed Viviana Ashton APRN.CNM documented in this encounter [facility] 11-03-2024 Instructions Rosemarie Morelos MA - 11/03/2024 2:55 PM EDT SEQUENTIAL SCREENINGS The [facility] offers sequential screenings for women who are interested in screenings for chromosomal abnormalities and certain defects during a . The sequential screen combines ultrasound and blood tests to determine the risk of chromosomal abnormalities, including Down's Syndrome (Trisomy 21) and Trisomy 18, as well as open neural tube defects including spina bifida. Ultrasound examination is performed between 11 weeks and 13 weeks gestational age. Blood tests are drawn after the ultrasound and again later in the between 15 and 21 weeks gestational age. Please let your physician know if you are interested in this testing. It will require an appointment with our swimming pool service technician. This is not an ultrasound performed by a physician in our office during a routine visit. SIGNS AND SYMPTOMS OF LABOR 1. Contractions every 10 minutes or more often 2. Clear, pink, or brownish fluid (water) leaking from vagina 3. Feeling that baby is pushing down, pressure 4. Low, dull backache 5. Cramps that feel like a period 6. Cramps with or without diarrhea If you notice any of the above symptoms, contact our office at [phone] and ask to speak with a nurse. After hours, you can call doctors registry at [phone] OR call [facility] at [phone] and ask to have the doctor collision mechanic paged. If you consider this an emergency, dial [phone] or go to your nearest emergency department. NEED HELP? Are you dealing with a violent or abusive relationship? Are you a victim of rape or sexual assult? Call [facility] ([place]) 24 hour Crisis Hotline: 995.584.7571 or 329-211-7061. MANUAL Your Guide to a Healthy manual is now on-line. Visit [email or web address] to download your free copy documented in this encounter [facility] 10-24-2024 Telephone encount er Note Order signed and faxed. Concepcion Laird RN [facility] 10-24-2024 Miscellaneous Notes Formattin g of this note might be different from the original. Order signed and faxed. Concepcion Laird RN Breast pump order received from [employer]. To JOHANNY to sign. Concepcion Laird RN documented in this encounter [facility] 10-24-2024 Telephone encount er Note Breast pump order received from [employer]. To JOHANNY to sign. Concepcion Laird RN [facility] 10-18-2024 Note Indication Evaluation of growth history of shoulder dystocia Impression - Single, live, intrauterine . - presentation is cephalic. - The biometry is consistent with the assigned gestational dating. - The EFW is 3030 g, at the 91%. AC is at the >99%. This is consistent with macrosomia. - Amniotic fluid volume is mild polyhydramnios with an MVP of 8.3 cm and SALLY of 24.9 cm. - The placenta is posterior, fundal. - No malformations visualized on a limited survey as detailed below. Recommendations Recommend a growth ultrasound in 4 weeks. Additional follow-up as clinically indicated. Maternal Assessment Height 165 cm Height (ft) 5 ft Height (in) 5 in Physical Exam Initial weight (lb) 177 lb Initial BMI 29.45 kg/m Maternal assessment other: 7 Para 4 REMOTE READ Method Transabdominal ultrasound examination Rosario . Number of fetuses: 1 Dating LMP on: 02/17/2024 GA by LMP 34 w + 6 d KIARA by LMP: 11/23/2024 GA by prior assessment 34 w + 6 d KIARA by prior assessment: 11/23/2024 Ultrasound examination on: 10/18/2024 GA by U/S based upon: AC, BPD, Femur, HC GA by U/S 35 w + 5 d KIARA by U/S: 11/17/2024 Assigned: based on stated KIARA, selected on 10/18/2024 Assigned GA 34 w + 6 d Assigned KIARA: 11/23/2024 General Evaluation Cardiac activity present. FHR 145 bpm. movements: present. Presentation: cephalic Placenta: Placental site: posterior, fundal Umbilical cord: Cord vessels: 3 vessel cord Amniotic fluid: Amount of AF: mild polyhydramnios. MVP 8.3 cm. SALLY 24.9 cm. Q1 2.0 cm, Q2 6.5 cm, Q3 8.3 cm, Q4 8.1 cm Growth Overview Exam date GA BPD (mm) HC (mm) AC (mm) FL (mm) HL (mm) EFW (g) 07/11/2024 20w 5d 47.6 36% 185.6 56% 173 87% 36.7 91% 33.9 77% 452 92% 10/18/2024 34w 6d 86.5 53% 318.5 51% 338.9 >99% 69.5 87% 3030 91% Biometry Standard BPD 86.5 mm 34w 6d 53% Hadlock OFD 112.4 mm 34w 3d 50% Nicolaides HC 318.5 mm 35w 0d 51% Ade AC 338.9 mm 37w 6d >99% Hadlock Femur 69.5 mm 35w 2d 87% Ade EFW 3,030 g 37w 0d 91% Hadlock EFW (lb) 6 lb EFW (oz) 11 oz EFW by: Hadlock (HC-AC-FL) Extended Manufacturing Engineering Director 4.8 mm Extremities / Bony Struc FL / HC 0.22 Other Structures FHR 145 bpm Anatomy Lateral ventricles: normal Cavum septi pellucidi: normal Cerebellum: normal Cisterna magna: normal 4-chamber view: normal RVOT view: normal LVOT view: normal 3-vessel view: normal Heart / Thorax Situs: situs solitus (normal) Diaphragm: normal Stomach: normal Kidneys: normal Bladder: normal sex: male Wants to know sex: yes Performed By: Kimberly Blanc, KAUSHALMS, RVT Read By: Jessica Amador M.D. [facility] 10-18-2024 Progress note Formatting of t his note might be different from the original. JOHANNY-S: tSaci Price is a 24 year old female who presents at 34w6d with KIARA:11/23/2024, by Last Menstrual Period for a routine visit. Denies headache, visual changes, chest pain, shortness of breath, vaginal bleeding, leakage of fluid, or dysuria. Feeling well, no complaints. O: See flow sheet Gen: No apparent distress Abd: Gravid, nontender Growth US, awaiting official results EFW 92% and SALLY 25 ASSESSMENT/PLAN: 1. Supervision of high risk in third trimester -Continue pnv 2. 34 weeks gestation of 3. Short interval between pregnancies affecting , antepartum 4. Anemia complicating , third trimester -Continue iron supplement -Repeat CBC next visit 5. Hx of pre-eclampsia, prior , currently -BP stable -Continue ASA -Reviewed signs of preelcampsia and when to call 6. History of shoulder dystocia in prior -Reviewed Shoulder dystocia and discussed potential recurrence of 9%. Largest child was 8lb 10oz and no complications. Should dystocia was 8lb and different father of baby. Discussed option for vaginal delivery vs primary LTCS. Will await US at 38wk. PTL precautions reviewed and when to call RTO in 2 weeks Elvira Guillory APRN.CNM [facility] 10-18-2024 Miscellaneous Notes Formattin g of this note might be different from the original. JOHANNY-S: Staci Price is a 24 year old female who presents at 34w6d with KIARA:11/23/2024, by Last Menstrual Period for a routine visit. Denies headache, visual changes, chest pain, shortness of breath, vaginal bleeding, leakage of fluid, or dysuria. Feeling well, no complaints. O: See flow sheet Gen: No apparent distress Abd: Gravid, nontender Growth US, awaiting official results EFW 92% and SALLY 25 ASSESSMENT/PLAN: 1. Supervision of high risk in third trimester -Continue pnv 2. 34 weeks gestation of 3. Short interval between pregnancies affecting , antepartum 4. Anemia complicating , third trimester -Continue iron supplement -Repeat CBC next visit 5. Hx of pre-eclampsia, prior , currently -BP stable -Continue ASA -Reviewed signs of preelcampsia and when to call 6. History of shoulder dystocia in prior -Reviewed Shoulder dystocia and discussed potential recurrence of 9%. Largest child was 8lb 10oz and no complications. Should dystocia was 8lb and different father of baby. Discussed option for vaginal delivery vs primary LTCS. Will await US at 38wk. PTL precautions reviewed and when to call RTO in 2 weeks Elvira Guillory APRN.CNM documented in this encounter [facility] 10-18-2024 Instructions Selam Rodriguez MA - 10/18/2024 2:58 PM EDT SEQUENTIAL SCREENINGS The [facility] offers sequential screenings for women who are interested in screenings for chromosomal abnormalities and certain defects during a . The sequential screen combines ultrasound and blood tests to determine the risk of chromosomal abnormalities, including Down's Syndrome (Trisomy 21) and Trisomy 18, as well as open neural tube defects including spina bifida. Ultrasound examination is performed between 11 weeks and 13 weeks gestational age. Blood tests are drawn after the ultrasound and again later in the between 15 and 21 weeks gestational age. Please let your physician know if you are interested in this testing. It will require an appointment with our swimming pool service technician. This is not an ultrasound performed by a physician in our office during a routine visit. SIGNS AND SYMPTOMS OF LABOR 1. Contractions every 10 minutes or more often 2. Clear, pink, or brownish fluid (water) leaking from vagina 3. Feeling that baby is pushing down, pressure 4. Low, dull backache 5. Cramps that feel like a period 6. Cramps with or without diarrhea If you notice any of the above symptoms, contact our office at [phone] and ask to speak with a nurse. After hours, you can call doctors registry at [phone] OR call [facility] at [phone] and ask to have the doctor collision mechanic paged. If you consider this an emergency, dial [phone]- or go to your nearest emergency department. NEED HELP? Are you dealing with a violent or abusive relationship? Are you a victim of rape or sexual assult? Call [facility] ([place]) 24 hour Crisis Hotline: 378.676.9230 or 288-128-1738. MANUAL Your Guide to a Healthy manual is now on-line. Visit [email or web address] to download your free copy documented in this encounter [facility] 10-03-2024 Progress note Formatting of t his note might be different from the original. S: Staci Price is a 24 year old female who presents at 11/23/2024, by Last Menstrual Period for a routine visit. Denies headache, visual changes, chest pain, shortness of breath, vaginal bleeding, leakage of fluid, or dysuria. Feeling well, no complaints. Good movement, No contractions O: See flow sheet Gen: No apparent distress Abd: Gravid, nontender Hx of shoulder dystocia Growth scheduled for 36 weeks ASSESSMENT/PLAN: 1. 32 weeks gestation of (HCC) - ICD9: V22.2, ICD10: Z3A.32 (primary diagnosis) - URINE OB DIP B/O 2. Short interval between pregnancies affecting , antepartum (HCC) - ICD9: V23.89, ICD10: O09.899 - URINE OB DIP B/O Kylee Weiss MD [facility] 10-03-2024 Miscellaneous Notes Formattin g of this note might be different from the original. S: Staci Price is a 24 year old female who presents at 11/23/2024, by Last Menstrual Period for a routine visit. Denies headache, visual changes, chest pain, shortness of breath, vaginal bleeding, leakage of fluid, or dysuria. Feeling well, no complaints. Good movement, No contractions O: See flow sheet Gen: No apparent distress Abd: Gravid, nontender Hx of shoulder dystocia Growth scheduled for 36 weeks ASSESSMENT/PLAN: 1. 32 weeks gestation of (HCC) - ICD9: V22.2, ICD10: Z3A.32 (primary diagnosis) - URINE OB DIP B/O 2. Short interval between pregnancies affecting , antepartum (HCC) - ICD9: V23.89, ICD10: O09.899 - URINE OB DIP B/O Kylee Weiss MD documented in this encounter [facility] 10-03-2024 Instructions Anju Romero LPN - 10/03/2024 2:39 PM EDT SEQUENTIAL SCREENINGS The [facility] offers sequential screenings for women who are interested in screenings for chromosomal abnormalities and certain defects during a . The sequential screen combines ultrasound and blood tests to determine the risk of chromosomal abnormalities, including Down's Syndrome (Trisomy 21) and Trisomy 18, as well as open neural tube defects including spina bifida. Ultrasound examination is performed between 11 weeks and 13 weeks gestational age. Blood tests are drawn after the ultrasound and again later in the between 15 and 21 weeks gestational age. Please let your physician know if you are interested in this testing. It will require an appointment with our swimming pool service technician. This is not an ultrasound performed by a physician in our office during a routine visit. SIGNS AND SYMPTOMS OF LABOR 1. Contractions every 10 minutes or more often 2. Clear, pink, or brownish fluid (water) leaking from vagina 3. Feeling that baby is pushing down, pressure 4. Low, dull backache 5. Cramps that feel like a period 6. Cramps with or without diarrhea If you notice any of the above symptoms, contact our office at [phone] and ask to speak with a nurse. After hours, you can call doctors registry at [phone] OR call [facility] at [phone] and ask to have the doctor collision mechanic paged. If you consider this an emergency, dial 8-1-8 or go to your nearest emergency department. NEED HELP? Are you dealing with a violent or abusive relationship? Are you a victim of rape or sexual assult? Call [facility] ([place]) 24 hour Crisis Hotline: 910.689.1226 or 606-910-3768. MANUAL Your Guide to a Healthy manual is now on-line. Visit [email or web address] to download your free copy documented in this encounter [facility] 09-29-2024 Telephone encount er Note 3rd risk assessment form submitted 09/29/2024 [facility] 09-29-2024 Miscellaneous Notes Formattin g of this note might be different from the original. 3rd risk assessment form submitted 09/29/2024 documented in this encounter [facility] 09-28-2024 Progress note Formatting of t his note might be different from the original. RR- VB No. LOF No. CTXS No. Movement: present. Other c/o: some intermittent edema Medication list reviewed. SENSITIVE EXAM: Sensitive exam not performed. Physical Exam See Flow Sheet Abd: soft, nontender, gravid Ext: edema: 1+ A/P 32w0d Estimated Date of Delivery: 11/23/24 ASSESSMENT/PLAN: 1. Supervision of high risk in third trimester (HCC) - ICD9: V23.9, ICD10: O09.93 (primary diagnosis) - OBSTETRIC ULTRASOUND WHI 2. 32 weeks gestation of (HCC) - ICD9: V22.2, ICD10: Z3A.32 - URINE OB DIP B/O - OBSTETRIC ULTRASOUND WHI 3. Short interval between pregnancies affecting , antepartum (HCC) - ICD9: V23.89, ICD10: O09.899 growth scans ordered - URINE OB DIP B/O - OBSTETRIC ULTRASOUND WHI 4. Anemia complicating , third trimester ([facility]) - ICD9: 648.23, 285.9, ICD10: O99.013 cont. pNV and fe 5. Hx of pre-eclampsia, prior , currently ([facility]) - ICD9: V23.49, ICD10: O09.299 cont. asa, check growth scanbs, monitor for signs/symptoms of preeclampsia - OBSTETRIC ULTRASOUND WHI 6. History of shoulder dystocia in prior - ICD9: V13.29, ICD10: Z87.59 check growth scans, plans vaginal delivery. D/w her even w/ smaller baby could have shoulder dystocia. - OBSTETRIC ULTRASOUND WHI breast pump rx given MD Nancy Gonzales M.D. [facility] 09-28-2024 Miscellaneous Notes Formattin g of this note might be different from the original. RR- VB No. LOF No. CTXS No. Movement: present. Other c/o: some intermittent edema Medication list reviewed. SENSITIVE EXAM: Sensitive exam not performed. Physical Exam See Flow Sheet Abd: soft, nontender, gravid Ext: edema: 1+ A/P 32w0d Estimated Date of Delivery: 11/23/24 ASSESSMENT/PLAN: 1. Supervision of high risk in third trimester ([facility]) - ICD9: V23.9, ICD10: O09.93 (primary diagnosis) - OBSTETRIC ULTRASOUND WHI 2. 32 weeks gestation of ([facility]) - ICD9: V22.2, ICD10: Z3A.32 - URINE OB DIP B/O - OBSTETRIC ULTRASOUND WHI 3. Short interval between pregnancies affecting , antepartum ([facility]) - ICD9: V23.89, ICD10: O09.899 growth scans ordered - URINE OB DIP B/O - OBSTETRIC ULTRASOUND WHI 4. Anemia complicating , third trimester ([facility]) - ICD9: 648.23, 285.9, ICD10: O99.013 cont. pNV and fe 5. Hx of pre-eclampsia, prior , currently (HCC) - ICD9: V23.49, ICD10: O09.299 cont. asa, check growth scanbs, monitor for signs/symptoms of preeclampsia - OBSTETRIC ULTRASOUND WHI 6. History of shoulder dystocia in prior - ICD9: V13.29, ICD10: Z87.59 check growth scans, plans vaginal delivery. D/w her even w/ smaller baby could have shoulder dystocia. - OBSTETRIC ULTRASOUND WHI breast pump rx given MD Nancy Gonzales M.D. documented in this encounter [facility] 09-28-2024 Instructions Anju Romero LPN - 09/28/2024 2:59 PM EDT SEQUENTIAL SCREENINGS The [facility] offers sequential screenings for women who are interested in screenings for chromosomal abnormalities and certain defects during a . The sequential screen combines ultrasound and blood tests to determine the risk of chromosomal abnormalities, including Down's Syndrome (Trisomy 21) and Trisomy 18, as well as open neural tube defects including spina bifida. Ultrasound examination is performed between 11 weeks and 13 weeks gestational age. Blood tests are drawn after the ultrasound and again later in the between 15 and 21 weeks gestational age. Please let your physician know if you are interested in this testing. It will require an appointment with our swimming pool service technician. This is not an ultrasound performed by a physician in our office during a routine visit. SIGNS AND SYMPTOMS OF LABOR 1. Contractions every 10 minutes or more often 2. Clear, pink, or brownish fluid (water) leaking from vagina 3. Feeling that baby is pushing down, pressure 4. Low, dull backache 5. Cramps that feel like a period 6. Cramps with or without diarrhea If you notice any of the above symptoms, contact our office at [phone] and ask to speak with a nurse. After hours, you can call doctors registry at [phone] OR call [facility] at [phone] and ask to have the doctor collision mechanic paged. If you consider this an emergency, dial 11-07- or go to your nearest emergency department. NEED HELP? Are you dealing with a violent or abusive relationship? Are you a victim of rape or sexual assult? Call [facility] ([place]) 24 hour Crisis Hotline: 685.213.9478 or 835-887-5967. MANUAL Your Guide to a Healthy manual is now on-line. Visit [email or web address] to download your free copy documented in this encounter [facility] 09-07-2024 Telephone encount er Note Requested Prescriptions Pending Prescriptions Disp Refills ferrous sulfate 325 mg (65 mg iron) tablet 15 tablet 3 Sig: Take 1 tablet by mouth every other day. Concepcion Laird RN [facility] 09-07-2024 Miscellaneous Notes Formattin g of this note is different from the original. Requested Prescriptions Pending Prescriptions Disp Refills ferrous sulfate 325 mg (65 mg iron) tablet 15 tablet 3 Sig: Take 1 tablet by mouth every other day. Concepcion Laird RN documented in this encounter [facility] 09-07-2024 Telephone encount er Note 29w0d Saw CP today for OB visit. Requested Prescriptions Pending Prescriptions Disp Refills aspirin, enteric coated (ASPIRIN, ENTERIC COATED) 81 mg EC tablet 60 tablet 5 Sig: Take 2 tablets by mouth once daily. docusate sodium (COLACE) 100 mg capsule 60 capsule 3 Sig: Take 1 capsule by mouth two times a day. Concepcion Laird RN [facility] 09-07-2024 Miscellaneous Notes Formattin g of this note is different from the original. 29w0d Saw CP today for OB visit. Requested Prescriptions Pending Prescriptions Disp Refills aspirin, enteric coated (ASPIRIN, ENTERIC COATED) 81 mg EC tablet 60 tablet 5 Sig: Take 2 tablets by mouth once daily. docusate sodium (COLACE) 100 mg capsule 60 capsule 3 Sig: Take 1 capsule by mouth two times a day. Concepcion Laird, RN documented in this encounter [facility] 09-07-2024 Progress note Formatting of t his note might be different from the original. S: Staci Price is a 24 year old female who presents at 29 weeks gestation for a routine visit. Positive movements. Just completed GCT. Denies headache, visual changes, chest pain, shortness of breath, vaginal bleeding, leakage of fluid, or dysuria. Feeling well, no complaints. O: See flow sheet Gen: No apparent distress Abd: Gravid, non tender ASSESSMENT/PLAN: 1. 29 weeks gestation of 2. Hx of pre-eclampsia, prior , currently 3. Short interval between pregnancies affecting , antepartum - 1 hour GCT, CBC, and RPR today - Rh positive - TDAP - Declines - LARC form reviewed and signed. Patient declines - Depression screen negative - Opioid screen negative - plan form discussed and given to patient. Patient desires epidural, formula feeding, circumcision - Continue vitamin - Continue ASA nightly - Preeclampsia precautions reviewed - Monitoring BP at home and knows parameters to report - PTL precautions and kick counts reviewed - RTO- 2 weeks or sooner if needed Viviana Ashton APRN.CNM [facility] 09-07-2024 Miscellaneous Notes Formattin g of this note might be different from the original. S: Staci Price is a 24 year old female who presents at 29 weeks gestation for a routine visit. Positive movements. Just completed GCT. Denies headache, visual changes, chest pain, shortness of breath, vaginal bleeding, leakage of fluid, or dysuria. Feeling well, no complaints. O: See flow sheet Gen: No apparent distress Abd: Gravid, non tender ASSESSMENT/PLAN: 1. 29 weeks gestation of 2. Hx of pre-eclampsia, prior , currently 3. Short interval between pregnancies affecting , antepartum - 1 hour GCT, CBC, and RPR today - Rh positive - TDAP - Declines - LARC form reviewed and signed. Patient declines - Depression screen negative - Opioid screen negative - plan form discussed and given to patient. Patient desires epidural, formula feeding, circumcision - Continue vitamin - Continue ASA nightly - Preeclampsia precautions reviewed - Monitoring BP at home and knows parameters to report - PTL precautions and kick counts reviewed - RTO- 2 weeks or sooner if needed Viviana Ashton APRN.CNM documented in this encounter [facility] 09-07-2024 Instructions Anju Romero LPN - 09/07/2024 3:03 PM EDT SEQUENTIAL SCREENINGS The [facility] offers sequential screenings for women who are interested in screenings for chromosomal abnormalities and certain defects during a . The sequential screen combines ultrasound and blood tests to determine the risk of chromosomal abnormalities, including Down's Syndrome (Trisomy 21) and Trisomy 18, as well as open neural tube defects including spina bifida. Ultrasound examination is performed between 11 weeks and 13 weeks gestational age. Blood tests are drawn after the ultrasound and again later in the between 15 and 21 weeks gestational age. Please let your physician know if you are interested in this testing. It will require an appointment with our swimming pool service technician. This is not an ultrasound performed by a physician in our office during a routine visit. SIGNS AND SYMPTOMS OF LABOR 1. Contractions every 10 minutes or more often 2. Clear, pink, or brownish fluid (water) leaking from vagina 3. Feeling that baby is pushing down, pressure 4. Low, dull backache 5. Cramps that feel like a period 6. Cramps with or without diarrhea If you notice any of the above symptoms, contact our office at [phone] and ask to speak with a nurse. After hours, you can call doctors registry at [phone] OR call [facility] at [phone] and ask to have the doctor collision mechanic paged. If you consider this an emergency, dial 9--1 or go to your nearest emergency department. NEED HELP? Are you dealing with a violent or abusive relationship? Are you a victim of rape or sexual assult? Call [facility] ([place]) 24 hour Crisis Hotline: 381.701.7385 or 298-162-6678. MANUAL Your Guide to a Healthy manual is now on-line. Visit [email or web address] to download your free copy documented in this encounter [facility] 08-15-2024 History of Presen t illness Narrative EH - S: Staci is a 24 year old female who presents at 25w5d for a routine visit. Feeling movement. Denies headache, visual changes, chest pain, shortness of breath, vaginal bleeding, leakage of fluid, or dysuria. Feeling well, no complaints. O: See flow sheet Gen: No apparent distress Abd: Gravid, nontender, S=D ASSESSMENT/PLAN: 1. Supervision of high risk in second trimester (HCC) - ICD9: V23.9, ICD10: O09.92 (primary diagnosis) - Continue PNV 2. 25 weeks gestation of (HCC) - ICD9: V22.2, ICD10: Z3A.25 3. Screening for diabetes mellitus - ICD9: V77.1, ICD10: Z13.1 - Anatomy ultrasound reviewed -GTT, CBC, RPR next visit 4. Hx of pre-eclampsia, prior , currently (HCC) - ICD9: V23.49, ICD10: O09.299 - Continue LDA 5. History of shoulder dystocia in prior - ICD9: V13.29, ICD10: Z87.59 - Plan for 36 week growth 6. Short interval between pregnancies affecting , antepartum (HCC) - ICD9: V23.89, ICD10: O09.899 - Delivered August and April 2022 PTL precautions reviewed. RTO in 4 weeks or sooner as needed. Gabriella Hoffman APRN.[employer] CONS[employer] documented in this encounter [facility] 08-15-2024 Note HNO ID: [id number] Author: GABRIELLA HOFFMAN APRN.[employer]FA[employer] CONSULTANT Service: ? Author Type: Nurse Practitioner Type: Progress Notes Filed: 08/15/2024 08:52 Note Text: EH - S: Staci is a 24 year old female who presents at 25w5d for a routine visit. Feeling movement. Denies headache, visual changes, chest pain, shortness of breath, vaginal bleeding, leakage of fluid, or dysuria. Feeling well, no complaints. O: See flow sheet Gen: No apparent distress Abd: Gravid, nontender, S=D ASSESSMENT/PLAN: 1. Supervision of high risk in second trimester ([facility]) - ICD9: V23.9, ICD10: O09.92 (primary diagnosis) - Continue PNV 2. 25 weeks gestation of ([facility]) - ICD9: V22.2, ICD10: Z3A.25 3. Screening for diabetes mellitus - ICD9: V77.1, ICD10: Z13.1 - Anatomy ultrasound reviewed -GTT, CBC, RPR next visit 4. Hx of pre-eclampsia, prior , currently ([facility]) - ICD9: V23.49, ICD10: O09.299 - Continue LDA 5. History of shoulder dystocia in prior - ICD9: V13.29, ICD10: Z87.59 - Plan for 36 week growth 6. Short interval between pregnancies affecting , antepartum ([facility]) - ICD9: V23.89, ICD10: O09.899 - Delivered August and April 2022 PTL precautions reviewed. RTO in 4 weeks or sooner as needed. Gabriella Hoffman APRN.SUCCESSFACT[employer] CONSULTANT [facility] 08-15-2024 Instructions Selam Rodriguez MA - 08/15/2024 8:35 AM EDT SEQUENTIAL SCREENINGS The [facility] offers sequential screenings for women who are interested in screenings for chromosomal abnormalities and certain defects during a . The sequential screen combines ultrasound and blood tests to determine the risk of chromosomal abnormalities, including Down's Syndrome (Trisomy 21) and Trisomy 18, as well as open neural tube defects including spina bifida. Ultrasound examination is performed between 11 weeks and 13 weeks gestational age. Blood tests are drawn after the ultrasound and again later in the between 15 and 21 weeks gestational age. Please let your physician know if you are interested in this testing. It will require an appointment with our swimming pool service technician. This is not an ultrasound performed by a physician in our office during a routine visit. SIGNS AND SYMPTOMS OF LABOR 1. Contractions every 10 minutes or more often 2. Clear, pink, or brownish fluid (water) leaking from vagina 3. Feeling that baby is pushing down, pressure 4. Low, dull backache 5. Cramps that feel like a period 6. Cramps with or without diarrhea If you notice any of the above symptoms, contact our office at [phone] and ask to speak with a nurse. After hours, you can call doctors registry at [phone] OR call [facility] at [phone] and ask to have the doctor collision mechanic paged. If you consider this an emergency, dial 9--4 or go to your nearest emergency department. NEED HELP? Are you dealing with a violent or abusive relationship? Are you a victim of rape or sexual assult? Call [facility] ([place]) 24 hour Crisis Hotline: 729.218.6565 or 359-447-6549. MANUAL Your Guide to a Healthy manual is now on-line. Visit [email or web address] to download your free copy documented in this encounter [facility] 07-12-2024 Telephone encount er Note 2nd risk assessment form submitted 07/12/2024. Kylee Butler RN [facility] 07-12-2024 Miscellaneous Notes Formattin g of this note might be different from the original. 2nd risk assessment form submitted 07/12/2024. Kylee Butler RN documented in this encounter [facility] 07-11-2024 Progress note Formatting of t his note might be different from the original. JOHANNY-S: Staci Price is a 24 year old female who presents at 20w5d with KIARA:11/23/2024, by Last Menstrual Period for a routine visit. Denies headache, visual changes, chest pain, shortness of breath, vaginal bleeding, leakage of fluid, or dysuria. Feeling well, no complaints. O: See flow sheet Gen: No apparent distress Abd: Gravid, nontender ASSESSMENT/PLAN: 1. Supervision of high risk in second trimester -Continue PNV -Anatomy US today 2. 20 weeks gestation of 3. Short interval between pregnancies affecting , antepartum 4. Hx of pre-eclampsia, prior , currently -Continues ASA 162mg PO once daily -Baseline labs normal 5. History of shoulder dystocia in prior -Delivery report reviewed, shoulder dystocia was 1 minute 23 seconds. Growth US at 36 weeks. -Will discuss further at next visit and review risks and delivery plan. PTL precautions reviewed RTO in 4 weeks Elvira Guillory APRN.CNM [facility] 07-11-2024 Miscellaneous Notes Formattin g of this note might be different from the original. JOHANNY-S: Staci Price is a 24 year old female who presents at 20w5d with KIARA:11/23/2024, by Last Menstrual Period for a routine visit. Denies headache, visual changes, chest pain, shortness of breath, vaginal bleeding, leakage of fluid, or dysuria. Feeling well, no complaints. O: See flow sheet Gen: No apparent distress Abd: Gravid, nontender ASSESSMENT/PLAN: 1. Supervision of high risk in second trimester -Continue PNV -Anatomy US today 2. 20 weeks gestation of 3. Short interval between pregnancies affecting , antepartum 4. Hx of pre-eclampsia, prior , currently -Continues ASA 162mg PO once daily -Baseline labs normal 5. History of shoulder dystocia in prior -Delivery report reviewed, shoulder dystocia was 1 minute 23 seconds. Growth US at 36 weeks. -Will discuss further at next visit and review risks and delivery plan. PTL precautions reviewed RTO in 4 weeks Elvira Guillory APRN.CNM documented in this encounter [facility] 06-16-2024 Telephone encount er Note Patient 17w1d seen in office on 06/13. Was treated for UTI in ER. Kimberly Ahn RN [facility] 06-16-2024 Miscellaneous Notes Formattin g of this note might be different from the original. Patient 17w1d seen in office on 06/13. Was treated for UTI in ER. Kimberly Ahn RN documented in this encounter [facility] 06-13-2024 Note HNO ID: [id number] Author: ELVIRA GUILLORY APRN.CNM Service: ? Author Type: Community Relations Manager Type: Progress Notes Filed: 06/14/2024 16:31 Note Text: JOHANNY-S: Staci Price is a 24 year old female who presents at 16w5d with KIARA:11/23/2024, by Last Menstrual Period for a routine visit. Denies headache, visual changes, chest pain, shortness of breath, vaginal bleeding, leakage of fluid, or dysuria. Feeling well, no complaints. UTI diagnosised at [facility] ED. Started on amoxicillin then switched to a different medication, can't remember the name. Feeling better. O: See flow sheet Gen: No apparent distress Abd: Gravid, nontender ASSESSMENT/PLAN: 1. Supervision of high risk in second trimester -Continue PNV -PN labs reviewed -Anatomy US next visit 2. 12 weeks gestation of 3. Short interval between pregnancies affecting , antepartum 4. Hx of pre-eclampsia, prior , currently -Continue ASA 162mg PO once daily -Baseline labs normal 5. History of shoulder dystocia in prior RTO in 4 weeks PTL precautions reviewed Elvira Guillory APRN.CNM [facility] 06-13-2024 History of Presen t illness Narrative JOHANNY-S: Staci Price is a 24 year old female who presents at 16w5d with KIARA:11/23/2024, by Last Menstrual Period for a routine visit. Denies headache, visual changes, chest pain, shortness of breath, vaginal bleeding, leakage of fluid, or dysuria. Feeling well, no complaints. UTI diagnosised at [facility] ED. Started on amoxicillin then switched to a different medication, can't remember the name. Feeling better. O: See flow sheet Gen: No apparent distress Abd: Gravid, nontender ASSESSMENT/PLAN: 1. Supervision of high risk in second trimester -Continue PNV -PN labs reviewed -Anatomy US next visit 2. 12 weeks gestation of 3. Short interval between pregnancies affecting , antepartum 4. Hx of pre-eclampsia, prior , currently -Continue ASA 162mg PO once daily -Baseline labs normal 5. History of shoulder dystocia in prior RTO in 4 weeks PTL precautions reviewed Elvira Guillory APRN.CNM documented in this encounter [facility] 06-13-2024 Instructions Curt Mauricio MA - 06/13/2024 1:49 PM EDT SEQUENTIAL SCREENINGS The [facility] offers sequential screenings for women who are interested in screenings for chromosomal abnormalities and certain defects during a . The sequential screen combines ultrasound and blood tests to determine the risk of chromosomal abnormalities, including Down's Syndrome (Trisomy 21) and Trisomy 18, as well as open neural tube defects including spina bifida. Ultrasound examination is performed between 11 weeks and 13 weeks gestational age. Blood tests are drawn after the ultrasound and again later in the between 15 and 21 weeks gestational age. Please let your physician know if you are interested in this testing. It will require an appointment with our swimming pool service technician. This is not an ultrasound performed by a physician in our office during a routine visit. SIGNS AND SYMPTOMS OF LABOR 1. Contractions every 10 minutes or more often 2. Clear, pink, or brownish fluid (water) leaking from vagina 3. Feeling that baby is pushing down, pressure 4. Low, dull backache 5. Cramps that feel like a period 6. Cramps with or without diarrhea If you notice any of the above symptoms, contact our office at [phone] and ask to speak with a nurse. After hours, you can call doctors registry at [phone] OR call [facility] at [phone] and ask to have the doctor collision mechanic paged. If you consider this an emergency, dial or go to your nearest emergency department. NEED HELP? Are you dealing with a violent or abusive relationship? Are you a victim of rape or sexual assult? Call [facility] ([place]) 24 hour Crisis Hotline: 512.196.4555 or 257-146-0696. MANUAL Your Guide to a Healthy manual is now on-line. Visit [email or web address] to download your free copy documented in this encounter [facility] 06-09-2024 Discharge summary [facility] 05-23-2024 Progress note Formatting of t his note might be different from the original. JOHANNY-S: Staci Price is a 24 year old female who presents at 13w5d with KIARA:11/23/2024, by Last Menstrual Period for a routine visit. Denies headache, visual changes, chest pain, shortness of breath, vaginal bleeding, leakage of fluid, or dysuria. Feeling well, no complaints. NT US today O: See flow sheet Gen: No apparent distress Abd: Gravid, nontender ASSESSMENT/PLAN: 1. Supervision of high risk in second trimester -Continue PNV -First trimester US today -PN labs today 2. 12 weeks gestation of 3. Short interval between pregnancies affecting , antepartum 4. Hx of pre-eclampsia, prior , currently -Start ASA 162mg PO once daily -Baseline labs today 5. History of shoulder dystocia in prior -Request delivery report PTL precautions reviewed and when to call RTO in 4 weeks Elvira Guillory APRN.CNM [facility] 05-23-2024 Miscellaneous Notes JOHANNY-S: Staci Price is a 24 year old female who presents at 13w5d with KIARA:11/23/2024, by Last Menstrual Period for a routine visit. Denies headache, visual changes, chest pain, shortness of breath, vaginal bleeding, leakage of fluid, or dysuria. Feeling well, no complaints. NT US today O: See flow sheet Gen: No apparent distress Abd: Gravid, nontender ASSESSMENT/PLAN: 1. Supervision of high risk in second trimester -Continue PNV -First trimester US today -PN labs today 2. 12 weeks gestation of 3. Short interval between pregnancies affecting , antepartum 4. Hx of pre-eclampsia, prior , currently -Start ASA 162mg PO once daily -Baseline labs today 5. History of shoulder dystocia in prior -Request delivery report PTL precautions reviewed and when to call RTO in 4 weeks Elvira Guillory APRN.CNM documented in this encounter [facility] 05-17-2024 Instructions Elvira Guillory APRN.CNM - 05/17/2024 2:12 PM EDT Diclegis 2 tablets by mouth at bedtime, every day not just as needed. Zofran as needed for nausea Colace 100mg by mouth twice a day for stool softener Aspirin 162mg (2, 81mg ) by mouth once daily SIGNS AND SYMPTOMS OF LABOR 1. Contractions every 10 minutes or more often 2. Clear, pink, or brownish fluid (water) leaking from vagina 3. Feeling that baby is pushing down, pressure 4. Low, dull backache 5. Cramps that feel like a period 6. Cramps with or without diarrhea If you notice any of the above symptoms, contact our office at [phone] and ask to speak with a nurse. After hours, you can call doctors registry at [phone] OR call [facility] at [phone] and ask to have the doctor collision mechanic paged. If you consider this an emergency, dial [phone] or go to your nearest emergency department. NEED HELP? Are you dealing with a violent or abusive relationship? Are you a victim of rape or sexual assult? Call [facility] ([place]) 24 hour Crisis Hotline: 651.895.3061 or 629-520-4052. MANUAL Your Guide to a Healthy manual is now on-line. Visit [email or web address] to download your free copy documented in this encounter [facility] 05-16-2024 Telephone encounter Note Patient called back in and scheduled her ultrasound for tomorrow in [place], she was able to arrange transportation. Amira Steward May 16, 2024 2:10 PM [facility] 05-16-2024 Miscellaneous Notes Patient called back in and scheduled her ultrasound for tomorrow in [place], she was able to arrange transportation. Amira Steward May 16, 2024 2:10 PM Patient transferred over to PSS to help coordinate a different location within the Clinic for appropriate time frame. She expressed frustration with the options given, states they are too far for her due to not having a vehicle. She states she is going to look for a new OB. Amira Steward May 16, 2024 1:56 PM Patient cancelled nuchal US and OB appointments scheduled for today 05/16/24. Patient will be 13 weeks as of tomorrow, 05/07/24. PSS unable to find availability for nuchal US within the appropriate time frame. Please contact patient to advise on plan of care. documented in this encounter [facility] 05-16-2024 Telephone encounter Note Patient transferred over to PSS to help coordinate a different location within the Clinic for appropriate time frame. She expressed frustration with the options given, states they are too far for her due to not having a vehicle. She states she is going to look for a new OB. Amira Steward May 16, 2024 1:56 PM [facility] 05-16-2024 Telephone encounter Note Patient cancelled nuchal US and OB appointments scheduled for today 05/16/24. Patient will be 13 weeks as of tomorrow, 05/07/24. PSS unable to find availability for nuchal US within the appropriate time frame. Please contact patient to advise on plan of care. [facility] 05-09-2024 Telephone encounter Note Patient notified. Concepcion Laird RN [facility] 05-09-2024 Miscellaneous Notes Patient notified. Concepcion Laird RN 11w5d Patient has US and OB visit on 05/16. Would like to do the [id number], but have it done this week and not wait until the . Will need an order. Please advise. Kylee Huber RN documented in this encounter [facility] 05-09-2024 Telephone encounter Note 11w5d Patient has US and OB visit on 05/16. Would like to do the [id number], but have it done this week and not wait until the 10th. Will need an order. Please advise. Kylee Huber, RN [facility] 04-12-2024 Telephone encounter Note 1st risk assessment form submitted 04/12/2024. Kylee Butler RN [facility] 04-12-2024 Miscellaneous Notes 1st risk assessment form submitted 04/12/2024. Kylee Butler RN documented in this encounter [facility] 04-11-2024 Progress note Formatting of t his note might be different from the original. See progress note. NOB today. Elvira Guillory APRN.CNM [facility] 04-11-2024 Miscellaneous Notes See progress note. NOB today. Elvira Guillory APRN.CNM documented in this encounter [facility] 04-11-2024 Note HNO ID: [id number] Author: CURT MAURICIO MA Service: ? Author Type: Teacher'S Aide Type: Progress Notes Filed: 04/11/2024 14:04 Note Text: OB point of care ultrasound was performed. See imaging tab for details. Curt Mauricio MA [facility] 04-11-2024 History of Present illness Narrative OB point of care ultrasound was performed. See imaging tab for details. Curt Mauricio MA INITIAL OB ASSESSMENT HPI: Staci is a 23 year old White Female here to establish Obstetrical Care. Patient's last menstrual period was 02/17/2024 (exact date). from OB Dating Form. was planned Complaints: No OB History T4 L4 SAB1 IAB1 Ectopic0 Multiple0 Live Births4 Previous history: Prior : never History of 4th degree laceration: No History of shoulder dystocia: Yes History of Hypertensive disorders including pre-eclampsia or gestational hypertension: Yes History of gestational diabetes: No Patient's Risk Screening for delivery: Have you had a prior rosario between 20w and 36w6d? No How many pregnancies have you had before? 7 Did you have a previous baby with a GBS Infection? No Please select all that apply for any prior : N/A MEDICAL/PSYCHOSOCIAL HISTORY: History of hemorrhage or bleeding concerns: No Thyroid Disease: No History of chronic hypertension: No History of pre-existing diabetes: No ABO/RH(D) Date Value Ref Range Status 07/05/2020 A POSITIVE Final BMI 29.45 kg/(m^2) Last Pap: 02/12/2023 History of abnormal pap: No Prior treatment for cervical dysplasia: none. Last HPV: 02/13/2023 History of STDs: chlamydia, GC, and syphilis Partner History of STDs: chlamydia Did you have a partner with Herpes? No Tobacco use: No E-Cigarette/Vaping Use: No Caffeine use: Yes Drug use: No Alcohol use: No Multivitamin with Folic acid: Yes Would refuse blood transfusion if medically necessary: No Social Needs: How often does this describe you? I don't have enough money to pay my bills: Never Within the past 12 months, have you worried that your food would run out before you had money to buy more? Never In the past 12 months, has lack of reliable transportation kept you from going to medical appointments or work, or from getting things needed for daily living? Never In the past 12 months, have you had any concerns about having a place to live, or about the condition or quality of your housing? Never Social History: Do you have any history of depression, anxiety, PTSD, or other mood problems? No Do you have a history of abuse or trauma that may impact your experience? No Are you currently employed? No Depression/Anxiety Screening: denies, admits to symptoms of depression. OB Depression and Anxiety Screening- This Encounter (since 04/10/2024) Over the past 2 weeks have you felt down, depressed, or hopeless? Negative Over the past two weeks, have you felt little interest or pleasure in doing things? Negative Feeling nervous, anxious or on edge 0-Not at all Not being able to stop or control worrying 0-Not al all Anxiety Pre-Screening Total (If >/= 3 additional questions will be reviewed) 0 Genetic Screening: Partner present: Yes Patient verbalized knowledge of partner family health history: No Do you or your partner have any personal or family history of defects not previously discussed: No Do you have history of a complicated by anomaly, genetic condition, or demise: No Preeclampsia Risk Screening: Screening for prevention of preeclampsia: High risk factors: None Moderate risk ractors: Sociodemographic characteristics ( race, low socioeconomic status) OB Risk Screening: Completed, no positive findings documented. Marital Status:Co-habitating Partner: Name: Branden Age: 26 Occupation: Unemployed Gender: Male PAST MEDICAL HISTORY Diagnosis Date Anemia Asthma No inhaler since 7th grade Chlamydia 2017 Genital warts Gonorrhea 2017 History of pre-eclampsia in prior , currently History reviewed. No pertinent surgical history. Current Outpatient Medications Medication Sig Dispense Refill aspirin, enteric coated (ASPIRIN, ENTERIC COATED) 81 mg EC tablet Take 2 tablets by mouth once daily. 60 tablet 5 albuterol HFA (PROAIR HFA) 90 mcg/actuation inhaler Inhale 2 Puffs as instructed every 4 hours as needed. 1 Each 0 PNV no.413-DZ-zu7-dmu-zxn-obol ( GUMMIES) 400 mcg-35 mg- 25 mg-5 mg chew Take 1 tablet by mouth once daily. 30 tablet 5 PNV without Ca-Iron PsCmplx-FA 29 mg iron- 1 mg chew Take 1 tablet by mouth once daily. (Patient not taking: Reported on 02/02/2024) 30 tablet 11 No current facility-administered medications for this visit. Allergies As of Date: 04/11/2024 (No Known Allergies) Fully Assessed 04/11/2024 Does patient have penicillin allergy: No REVIEW OF SYSTEMS: GENERAL: Negative for: Fever or Chills HEENT: Negative for: Headache, Impaired Vision, Ringing in Ears, Nosebleeds NECK: Negative for: Swelling, Pain, Stiffness RESPIRATORY: Negative for: Cough, Shortness of breath, Wheezing GASTROINTESTINAL: Negative for: Heartburn, Constipation, Diarrhea, Blood in stool, Vomiting MUSCULOSKELETAL: Negative for: Muscle or joint pain, stiffness, Joint swelling NEUROLOGIC/PSYCHIATRIC: Negative for: Weakness, Paralysis, Numbness, Tingling, Tremor, Anxiety, Depression, Memory loss SKIN: Negative for: Rash, Itching GENITOURINARY: Negative for: vaginal itching, vaginal discharge, hematuria or dysuria SENSITIVE EXAM: The sensitive examination was discussed with the Patient or Patient's Authorized Telephone Betting Clerk. As applicable, any other physician, advance practice provider, medical student, or other health professional student that will be observing or involved in the sensitive examination for educational or training purposes was discussed with the Patient or Authorized Telephone Betting Clerk. The Patient or Authorized Telephone Betting Clerk has agreed to proceed with the sensitive examination. (Sensitive examination includes inspection and/or palpation of the breasts, pelvis, prostate and anorectal regions). PHYSICAL EXAM: BP 118/76 Ht 5' 5 (1.65m) Wt 177 lb (80.3kg) LMP 02/17/2024 BMI 29.45 kg/(m^2). GENERAL: pleasant in no apparent distress DERMATOLOGY: Normal, without lesions, non-icteric, and non-hirsute NECK: Supple, full range of motion, no adenopathy, and thyroid normal CHEST: Normal inspiratory effort BREAST: soft, non-tender, symmetric, no dominant mass, normal nipple-areolar complex, no lymphadenopathy, and no nipple discharge ABDOMEN: soft, non-tender, and no masses NEURO: alert and oriented x3,exam grossly non-focal PELVIS: External genitalia normal without lesions. Perineal body intact. No vaginal or cervical lesions. Cervix closed. Uterus 7-8 week size. No adnexal masses or tenderness. Clinical Pelvimetry: Pelvimetry clinically assessed as adequate Limited OB ultrasound exam: single intrauterine , positive cardiac activity, crown-rump length 7w1d, and normal bilateral adnexa ASSESSMENT: 23 year old at 7w5d wks gestational age PLAN: 1) Patient oriented to practice. Patient given new OB orientation folder. Discussed nutrition, folic acid supplementation, dietary guidelines, exercise, smoking, alcohol, caffeine, and drug use. Discussed gestational weight gain guidelines. Discussed routine OB labs including STD/HIV. Discussed how to access Your guide to a health and the [employer] Sheet Metal Worker. Discussed hemoglobin electrophoresis. Patient: Accepts 2) Screening: Hemoglobin A1C: ordered Baby Aspirin: The patient has been counseled about the potential benefits of low dose aspirin in and our recommendation that this be offered to all patients, regardless of whether they meet the high risk criteria specified above. She Accepts Aneuploidy Screening: Discussed aneuploidy screening, nuchal translucency/first trimester early anatomy ultrasound and NIPT. The risks/benefits and limitations of NIPT/aneuploidy screening were reviewed including the potential for false negative and false positive results. The availability of genetic counseling was reviewed. Information on aneuploidy screening was provided. The patient chooses to proceed with First trimester early anatomy ultrasound (12-13w6d) and NIPT (10 weeks) Myriad Carrier Screening: Discussed myriad carrier screening. We discussed the availability of professional-society guided carrier screening and reviewed the conditions screened and limitations of screening. The availability of genetic counseling was reviewed. Information on carrier screening was provided. The patient Accepts 3) Patient offered option of Virtual Visits. Patient prefers in person visits. 4) History of hypertension: Gestational Hypertension Follow up in 4 weeks or sooner prn. Elvira Guillory APRN.CNM documented in this encounter [facility] 04-08-2024 Note HNO ID: [id number] Author: ELVIRA GUILLORY APRN.CNM Service: ? Author Type: Community Relations Manager Type: Progress Notes Filed: 04/11/2024 14:04 Note Text: INITIAL OB ASSESSMENT HPI: Staci is a 23 year old White Female here to establish Obstetrical Care. Patient's last menstrual period was 02/17/2024 (exact date). from OB Dating Form. was planned Complaints: No OB History T4 L4 SAB1 IAB1 Ectopic0 Multiple0 Live Births4 Previous history: Prior : never History of 4th degree laceration: No History of shoulder dystocia: Yes History of Hypertensive disorders including pre-eclampsia or gestational hypertension: Yes History of gestational diabetes: No Patient's Risk Screening for delivery: Have you had a prior rosario between 20w and 36w6d? No How many pregnancies have you had before? 7 Did you have a previous baby with a GBS Infection? No Please select all that apply for any prior : N/A MEDICAL/PSYCHOSOCIAL HISTORY: History of hemorrhage or bleeding concerns: No Thyroid Disease: No History of chronic hypertension: No History of pre-existing diabetes: No ABO/RH(D) Date Value Ref Range Status 07/05/2020 A POSITIVE Final BMI 29.45 kg/(m2) Last Pap: 02/12/2023 History of abnormal pap: No Prior treatment for cervical dysplasia: none. Last HPV: 02/13/2023 History of STDs: chlamydia, GC, and syphilis Partner History of STDs: chlamydia Did you have a partner with Herpes? No Tobacco use: No E-Cigarette/Vaping Use: No Caffeine use: Yes Drug use: No Alcohol use: No Multivitamin with Folic acid: Yes Would refuse blood transfusion if medically necessary: No Social Needs: How often does this describe you? I don't have enough money to pay my bills: Never Within the past 12 months, have you worried that your food would run out before you had money to buy more? Never In the past 12 months, has lack of reliable transportation kept you from going to medical appointments or work, or from getting things needed for daily living? Never In the past 12 months, have you had any concerns about having a place to live, or about the condition or quality of your housing? Never Social History: Do you have any history of depression, anxiety, PTSD, or other mood problems? No Do you have a history of abuse or trauma that may impact your experience? No Are you currently employed? No Depression/Anxiety Screening: denies, admits to symptoms of depression. OB Depression and Anxiety Screening- This Encounter (since 04/10/2024) Over the past 2 weeks have you felt down, depressed, or hopeless? Negative Over the past two weeks, have you felt little interest or pleasure in doing things?? Negative Feeling nervous, anxious or on edge 0-Not at all Not being able to stop or control worrying 0-Not al all Anxiety Pre-Screening Total (If >/= 3 additional questions will be reviewed) 0 Genetic Screening: Partner present: Yes Patient verbalized knowledge of partner family health history: No Do you or your partner have any personal or family history of defects not previously discussed: No Do you have history of a complicated by anomaly, genetic condition, or demise: No Preeclampsia Risk Screening: Screening for prevention of preeclampsia: High risk factors: None Moderate risk ractors: Sociodemographic characteristics ( race, low socioeconomic status) OB Risk Screening: Completed, no positive findings documented. Marital Status:Co-habitating Partner: Name: Branden Age: 26 Occupation: Unemployed Gender: Male PAST MEDICAL HISTORY Diagnosis Date Anemia Asthma No inhaler since 7th grade Chlamydia 2017 Genital warts Gonorrhea 2017 History of pre-eclampsia in prior , currently History reviewed. No pertinent surgical history. Current Outpatient Medications Medication Sig Dispense Refill aspirin, enteric coated (ASPIRIN, ENTERIC COATED) 81 mg EC tablet Take 2 tablets by mouth once daily. 60 tablet 5 albuterol HFA (PROAIR HFA) 90 mcg/actuation inhaler Inhale 2 Puffs as instructed every 4 hours as needed. 1 Each 0 PNV no.380-QQ-qu7-yrc-qas-ayzn ( GUMMIES) 400 mcg-35 mg- 25 mg-5 mg chew Take 1 tablet by mouth once daily. 30 tablet 5 PNV without Ca-Iron PsCmplx-FA 29 mg iron- 1 mg chew Take 1 tablet by mouth once daily. (Patient not taking: Reported on 02/02/2024) 30 tablet 11 No current facility-administered medications for this visit. Allergies As of Date: 04/11/2024 (No Known Allergies) Fully Assessed 04/11/2024 Does patient have penicillin allergy: No REVIEW OF SYSTEMS: GENERAL: Negative for: Fever or Chills HEENT: Negative for: Headache, Impaired Vision, Ringing in Ears, Nosebleeds NECK: Negative for: Swelling, Pain, Stiffness RESPIRATORY: Negative for: Cough, Shortness of breath, (more content not included)... [facility] 04-08-2024 Instructions Elvira Guillory APRN.CNM - 04/08/2024 1:58 PM EST Please select the following link to access the [facility] Your Guide to a Healthy . [email or web address] documented in this encounter [facility] 04-08-2024 Telephone encounter Note Provider notified, order signed. Darcie Camp MA [facility] 04-08-2024 Miscellaneous Notes Provider notified, order signed. Darcie Camp MA Pt saw her results on her MyChart so called in. Given information from Juju Rothman. Azithromycin prescription appears to be pended but not filed yet. Pt instructed to check with [facility] in a couple of hours for the order. Please call patient let her know she is positive for chlamydia. Patient is so azithromycin was called in and she will just take it 1 time. Patient was negative for gonorrhea, yeast, trichomonas. Patient needs to take medication and partner should be checked and treated. Patient should follow-up with OB documented in this encounter [facility] 04-08-2024 Telephone encounter Note Pt saw her results on her MyChart so called in. Given information from Juju Rothman. Azithromycin prescription appears to be pended but not filed yet. Pt instructed to check with [facility] in a couple of hours for the order. [facility] 04-08-2024 Telephone encounter Note Please call patient let her know she is positive for chlamydia. Patient is so azithromycin was called in and she will just take it 1 time. Patient was negative for gonorrhea, yeast, trichomonas. Patient needs to take medication and partner should be checked and treated. Patient should follow-up with OB [facility] 04-07-2024 Instructions Macie Melendez - 04/07/2024 11:20 AM EST ASSESSMENT/PLAN: 1. Burning with urination - ICD9: 788.1, ICD10: R30.0 (primary diagnosis) acute - Patient education for prevention given - UA DIP, URINE (POC) - BACTERIAL CULTURE, URINE - treatment will be ordered based on results of urine culture 2. Vaginal discharge - ICD9: 623.5, ICD10: N89.8 - ALFRED/TRICHOMONAS NAAT - BACTERIAL VAGINOSIS NAAT - GONORRHEA/CHLAMYDIA NAAT - treatment will be ordered based on results of STI testing documented in this encounter [facility] 04-07-2024 Note HNO ID: [id number] Author: EVELYN MANCIA APRN.SUCCESSFACTORS CONSULTANT Service: ? Author Type: Nurse Practitioner Type: Progress Notes Filed: 04/07/2024 16:25 Note Text: Subjective Pt is a 23 y/o female who presents with vaginal pain and concerns for UTI/STI. Pt is 7 weeks and is concerned that her partner may be positive for an STI. Along with the vaginal pain, she is experiencing odor, white milky discharge and a feeling of fullness in the vaginal canal. Pt is c/o burning with urination but no increased frequency or urgency. Pt is requesting a pelvic exam at this time. Per patient, last menstrual period was 02/17/24. Per patient, due date is 11/23/2024. HPI Review of Systems Constitutional: Negative for chills, fever and malaise/fatigue. Respiratory: Negative. Cardiovascular: Negative. Gastrointestinal: Negative. Genitourinary: Positive for dysuria. Negative for flank pain, frequency, hematuria and urgency. Musculoskeletal: Negative. Skin: Negative. BP 122/74 Pulse 95 Temp 37.1 ?C (98.8 ?F) Resp 20 Wt 81.1 kg (178 lb 12.7 oz) LMP 01/20/2023 (Approximate) SpO2 99% BMI 28.00 kg/m? PAST MEDICAL HISTORY Diagnosis Date Anemia Asthma No inhaler since 7th grade Chlamydia 2017 Genital warts Gonorrhea 2017 History of pre-eclampsia in prior , currently No past surgical history on file. ALLERGIES Patient has no known allergies. MEDICATIONS aspirin, enteric coated (ASPIRIN, ENTERIC COATED) 81 mg EC tablet Take 2 tablets by mouth once daily. albuterol HFA (PROAIR HFA) 90 mcg/actuation inhaler Inhale 2 Puffs as instructed every 4 hours as needed. PNV no.240-HY-xs5-gyo-caw-ahej ( GUMMIES) 400 mcg-35 mg- 25 mg-5 mg chew Take 1 tablet by mouth once daily. PNV without Ca-Iron PsCmplx-FA 29 mg iron- 1 mg chew Take 1 tablet by mouth once daily. (Patient not taking: Reported on 02/02/2024) FAMILY HISTORY Problem Relation Age of Onset No Known Problems Mother Obesity Father other (lactose intolerance) Sister No Known Problems Sister No Known Problems Sister No Known Problems Brother No Known Problems Brother No Known Problems Brother No Known Problems Maternal Grandmother No Known Problems Maternal Grandfather No Known Problems Paternal Grandmother No Known Problems Paternal Grandfather No Known Problems Daughter No Known Problems Daughter Seizures Son Social History Tobacco Use Smoking status: Never Smokeless tobacco: Never Vaping Use Vaping status: Former Quit date: 10/02/2022 Substances: Nicotine Substance Use Topics Alcohol use: Not Currently Drug use: Not Currently Types: Marijuana Objective Physical Exam Exam conducted with a strategic planner present. Constitutional: General: She is awake. Appearance: Normal appearance. Cardiovascular: Rate and Rhythm: Normal rate and regular rhythm. Pulmonary: Effort: Pulmonary effort is normal. Breath sounds: Normal breath sounds. Abdominal: General: Bowel sounds are normal. Tenderness: There is no abdominal tenderness. There is no right CVA tenderness or left CVA tenderness. Genitourinary: General: Normal vulva. Exam position: Lithotomy position. Vagina: Vaginal discharge present. No tenderness. Comments: Thin white milky discharge present on pelvic exam Neurological: Mental Status: She is alert. ASSESSMENT/PLAN: 1. Burning with urination - ICD9: 788.1, ICD10: R30.0 (primary diagnosis) acute - Patient education for prevention given - UA DIP, URINE (POC) - BACTERIAL CULTURE, URINE - treatment will be ordered based on results of urine culture 2. Vaginal discharge - ICD9: 623.5, ICD10: N89.8 - ALFRED/TRICHOMONAS NAAT - BACTERIAL VAGINOSIS NAAT - GONORRHEA/CHLAMYDIA NAAT - treatment will be ordered based on results of STI testing Macie Melendez TEACHING PROVIDER (Physician/PA/DUST BOX WORKER) NOTE OF PERSONAL INVOLVEMENT IN CARE: I have personally seen and examined the patient and performed the medical decision-making components. I have reviewed the Advanced Practice Registered Nurse (DUST BOX WORKER) Student's documentation and verified the findings in the note as written. Any additions or changes are noted in bold/italics. Signature: Evelyn ArguetaBekah Date: 04/07/2024 Time: 4:25 PM [facility] 04-07-2024 History of Present illness Narrative Subjective Pt is a 23 y/o female who presents with vaginal pain and concerns for UTI/STI. Pt is 7 weeks and is concerned that her partner may be positive for an STI. Along with the vaginal pain, she is experiencing odor, white milky discharge and a feeling of fullness in the vaginal canal. Pt is c/o burning with urination but no increased frequency or urgency. Pt is requesting a pelvic exam at this time. Per patient, last menstrual period was 02/17/24. Per patient, due date is 11/23/2024. HPI Review of Systems Constitutional: Negative for chills, fever and malaise/fatigue. Respiratory: Negative. Cardiovascular: Negative. Gastrointestinal: Negative. Genitourinary: Positive for dysuria. Negative for flank pain, frequency, hematuria and urgency. Musculoskeletal: Negative. Skin: Negative. BP 122/74 Pulse 95 Temp 37.1 C (98.8 F) Resp 20 Wt 81.1 kg (178 lb 12.7 oz) LMP 01/20/2023 (Approximate) SpO2 99% BMI 28.00 kg/m PAST MEDICAL HISTORY Diagnosis Date Anemia Asthma No inhaler since 7th grade Chlamydia 2017 Genital warts Gonorrhea 2017 History of pre-eclampsia in prior , currently No past surgical history on file. ALLERGIES Patient has no known allergies. MEDICATIONS aspirin, enteric coated (ASPIRIN, ENTERIC COATED) 81 mg EC tablet Take 2 tablets by mouth once daily. albuterol HFA (PROAIR HFA) 90 mcg/actuation inhaler Inhale 2 Puffs as instructed every 4 hours as needed. PNV no.500-BG-jg6-pza-azh-smvi ( GUMMIES) 400 mcg-35 mg- 25 mg-5 mg chew Take 1 tablet by mouth once daily. PNV without Ca-Iron PsCmplx-FA 29 mg iron- 1 mg chew Take 1 tablet by mouth once daily. (Patient not taking: Reported on 02/02/2024) FAMILY HISTORY Problem Relation Age of Onset No Known Problems Mother Obesity Father other (lactose intolerance) Sister No Known Problems Sister No Known Problems Sister No Known Problems Brother No Known Problems Brother No Known Problems Brother No Known Problems Maternal Grandmother No Known Problems Maternal Grandfather No Known Problems Paternal Grandmother No Known Problems Paternal Grandfather No Known Problems Daughter No Known Problems Daughter Seizures Son Social History Tobacco Use Smoking status: Never Smokeless tobacco: Never Vaping Use Vaping status: Former Quit date: 10/02/2022 Substances: Nicotine Substance Use Topics Alcohol use: Not Currently Drug use: Not Currently Types: Marijuana Objective Physical Exam Exam conducted with a strategic planner present. Constitutional: General: She is awake. Appearance: Normal appearance. Cardiovascular: Rate and Rhythm: Normal rate and regular rhythm. Pulmonary: Effort: Pulmonary effort is normal. Breath sounds: Normal breath sounds. Abdominal: General: Bowel sounds are normal. Tenderness: There is no abdominal tenderness. There is no right CVA tenderness or left CVA tenderness. Genitourinary: General: Normal vulva. Exam position: Lithotomy position. Vagina: Vaginal discharge present. No tenderness. Comments: Thin white milky discharge present on pelvic exam Neurological: Mental Status: She is alert. ASSESSMENT/PLAN: 1. Burning with urination - ICD9: 788.1, ICD10: R30.0 (primary diagnosis) acute - Patient education for prevention given - UA DIP, URINE (POC) - BACTERIAL CULTURE, URINE - treatment will be ordered based on results of urine culture 2. Vaginal discharge - ICD9: 623.5, ICD10: N89.8 - ALFRED/TRICHOMONAS NAAT - BACTERIAL VAGINOSIS NAAT - GONORRHEA/CHLAMYDIA NAAT - treatment will be ordered based on results of STI testing Macie Melendez TEACHING PROVIDER (Physician/PA/DUST BOX WORKER) NOTE OF PERSONAL INVOLVEMENT IN CARE: I have personally seen and examined the patient and performed the medical decision-making components. I have reviewed the Advanced Practice Registered Nurse (DUST BOX WORKER) Student's documentation and verified the findings in the note as written. Any additions or changes are noted in bold/italics. Signature: Evelyn Mancia Date: 04/07/2024 Time: 4:25 PM documented in this encounter [facility] 02-03-2024 Nurse Note Injection given per provider order for STD.Lissy Dodge LPN [facility] 02-03-2024 Nurse Note Injection given per provider order for STD.Lissy Dodge LPN documented in this encounter [facility] 02-03-2024 Telephone encounter Note Patient notified and verbalized understanding of instructions given.Said she will return for injection.Lissy Dodge LPN [facility] 02-03-2024 Miscellaneous Notes Patient notified and verbalized understanding of instructions given.Said she will return for injection.Lissy Dodge LPN Please call and let patient know she was positive for gonorrhea, yeast, bacterial vaginosis, and trichomonas. The gonorrhea needs treated with an injection that she will need to return back to express care for. I can treat bacterial vaginosis and trichomonas with the same antibiotic, Flagyl. Do not drink alcohol with this medication. The yeast I will send in Diflucan. She needs to follow-up with women's health. Refrain from sexual intercourse for at least a week after treatment is completed.Partners need notified. Patient calls and is asking for provider to go over lab results from yesterday. Please review and advise, Laina Argueta RN documented in this encounter [facility] 02-03-2024 Telephone encounter Note Please call and let patient know she was positive for gonorrhea, yeast, bacterial vaginosis, and trichomonas. The gonorrhea needs treated with an injection that she will need to return back to [facility] care for. I can treat bacterial vaginosis and trichomonas with the same antibiotic, Flagyl. Do not drink alcohol with this medication. The yeast I will send in Diflucan. She needs to follow-up with women's health. Refrain from sexual intercourse for at least a week after treatment is completed.Partners need notified. [facility] 02-03-2024 Telephone encounter Note Patient calls and is asking for provider to go over lab results from yesterday. Please review and advise, Laina Argueta RN [facility] 02-02-2024 Note HNO ID: [id number] Author: ELVIRA LARSEN APRN.[employer] CONSULTANT Service: ? Author Type: Nurse Practitioner Type: Progress Notes Filed: 02/02/2024 12:18 Note Text: This note was created using Single Touch Systemsriter. Subjective Staci Price is a 23 year old female. 23 year old female with no PMH presents for female complaints Think I have a UTI or infection Acute onset of symptoms 2 days ago +suprapubic pressure +vaginal discharge Denies burning, frequency or urgency Deneis N/v/D Denies fever or chills Denies abdominal pain Denies flank pain Denies skin rash or lesions. Has history of UTI's +sexually active Recent coitus LMP-January 20-January 23 Denies contraceptives usage Denies concerns for STI She had child 6 months ago, denies she is nursing The history is provided by the patient. No review assistant was used. Female Gu Problem This is a new problem. The current episode started 2 days ago. The onset was sudden. The problem occurs continuously. The problem has been gradually worsening. The pain is mild. Nothing relieves the symptoms. Nothing aggravates the symptoms. Associated symptoms include vaginal discharge. Pertinent negatives include no chest pain, no anorexia, no chills, no fever, no abdominal pain, no constipation, no diarrhea, no nausea, no vomiting, no dysuria, no frequency, no hematuria, no urgency, no vaginal bleeding, no vaginal pain, no headaches, no sore throat, no back pain, no cough, no shortness of breath, no rash and no dyspareunia. There has been no history of trauma. Urine output has been normal. The last void occurred Less than 6 hours ago. She is currently Sexually active. She has 1 sexual partner. Contraceptives used include nothing. She is not . She has not missed her period. The patient's menstrual history has been regular. She has had prior pregnancies. Her past medical history is significant for STD and UTI. There were no sick contacts. She has received no recent medical care. PAST MEDICAL HISTORY Diagnosis Date Anemia Asthma No inhaler since 7th grade Chlamydia 2017 Genital warts Gonorrhea 2017 History of pre-eclampsia in prior , currently No past surgical history on file. ALLERGIES Patient has no known allergies. MEDICATIONS aspirin, enteric coated (ASPIRIN, ENTERIC COATED) 81 mg EC tablet Take 2 tablets by mouth once daily. albuterol HFA (PROAIR HFA) 90 mcg/actuation inhaler Inhale 2 Puffs as instructed every 4 hours as needed. PNV no.707-NR-xu8-nvb-vbn-ixgp ( GUMMIES) 400 mcg-35 mg- 25 mg-5 mg chew Take 1 tablet by mouth once daily. PNV without Ca-Iron PsCmplx-FA 29 mg iron- 1 mg chew Take 1 tablet by mouth once daily. (Patient not taking: Reported on 02/02/2024) FAMILY HISTORY Problem Relation Age of Onset No Known Problems Mother Obesity Father other (lactose intolerance) Sister No Known Problems Sister No Known Problems Sister No Known Problems Brother No Known Problems Brother No Known Problems Brother No Known Problems Maternal Grandmother No Known Problems Maternal Grandfather No Known Problems Paternal Grandmother No Known Problems Paternal Grandfather No Known Problems Daughter No Known Problems Daughter Seizures Son Social History Tobacco Use Smoking status: Never Smokeless tobacco: Never Vaping Use Vaping status: Former Quit date: 10/02/2022 Substances: Nicotine Substance Use Topics Alcohol use: Not Currently Drug use: Not Currently Types: Marijuana Review of Systems Constitutional: Negative for chills and fever. HENT: Negative for sore throat. Respiratory: Negative for cough and shortness of breath. Cardiovascular: Negative for chest pain. Gastrointestinal: Negative for abdominal pain, anorexia, constipation, diarrhea, nausea and vomiting. Genitourinary: Positive for vaginal discharge. Negative for dyspareunia, dysuria, frequency, hematuria, urgency, vaginal bleeding and vaginal pain. Musculoskeletal: Negative for back pain. Skin: Negative for rash. Neurological: Negative for headaches. Objective BP 108/70 Pulse 86 Temp 36.8 ?C (98.2 ?F) Resp 16 Wt 79.5 kg (175 lb 4.3 oz) LMP 01/20/2023 (Approximate) SpO2 97% BMI 27.45 kg/m? Physical Exam Vitals and nursing note reviewed. Constitutional: General: She is not in acute distress. Appearance: Normal appearance. She is normal weight. She is not ill-appearing, toxic-appearing or diaphoretic. HENT: Head: Normocephalic and atraumatic. Right Ear: Ear canal and external ear normal. Left Ear: Ear canal and external ear normal. Nose: Nose normal. No congestion or rhinorrhea. Mouth/Throat: Mouth: Mucous membranes are moist. Pharynx: No oropharyngeal exudate or posterior oropharyngeal erythema. Eyes: General: Right eye: No discharge. Left eye: No discharge. Extraocular Movements: Extraocular movements intact. Conjunctiva/sclera: Conjuncti (more content not included)... [facility] 02-02-2024 History of Present illness Narrative This note was created using Single Touch Systemsriter. Subjective Staci Price is a 23 year old female. 23 year old female with no PMH presents for female complaints Think I have a UTI or infection Acute onset of symptoms 2 days ago +suprapubic pressure +vaginal discharge Denies burning, frequency or urgency Deneis N/v/D Denies fever or chills Denies abdominal pain Denies flank pain Denies skin rash or lesions. Has history of UTI's +sexually active Recent coitus LMP-January 20-January 23 Denies contraceptives usage Denies concerns for STI She had child 6 months ago, denies she is nursing The history is provided by the patient. No review assistant was used. Female Gu Problem This is a new problem. The current episode started 2 days ago. The onset was sudden. The problem occurs continuously. The problem has been gradually worsening. The pain is mild. Nothing relieves the symptoms. Nothing aggravates the symptoms. Associated symptoms include vaginal discharge. Pertinent negatives include no chest pain, no anorexia, no chills, no fever, no abdominal pain, no constipation, no diarrhea, no nausea, no vomiting, no dysuria, no frequency, no hematuria, no urgency, no vaginal bleeding, no vaginal pain, no headaches, no sore throat, no back pain, no cough, no shortness of breath, no rash and no dyspareunia. There has been no history of trauma. Urine output has been normal. The last void occurred Less than 6 hours ago. She is currently Sexually active. She has 1 sexual partner. Contraceptives used include nothing. She is not . She has not missed her period. The patient's menstrual history has been regular. She has had prior pregnancies. Her past medical history is significant for STD and UTI. There were no sick contacts. She has received no recent medical care. PAST MEDICAL HISTORY Diagnosis Date Anemia Asthma No inhaler since 7th grade Chlamydia 2017 Genital warts Gonorrhea 2017 History of pre-eclampsia in prior , currently No past surgical history on file. ALLERGIES Patient has no known allergies. MEDICATIONS aspirin, enteric coated (ASPIRIN, ENTERIC COATED) 81 mg EC tablet Take 2 tablets by mouth once daily. albuterol HFA (PROAIR HFA) 90 mcg/actuation inhaler Inhale 2 Puffs as instructed every 4 hours as needed. PNV no.881-CD-zq2-ihx-awo-gvbs ( GUMMIES) 400 mcg-35 mg- 25 mg-5 mg chew Take 1 tablet by mouth once daily. PNV without Ca-Iron PsCmplx-FA 29 mg iron- 1 mg chew Take 1 tablet by mouth once daily. (Patient not taking: Reported on 02/02/2024) FAMILY HISTORY Problem Relation Age of Onset No Known Problems Mother Obesity Father other (lactose intolerance) Sister No Known Problems Sister No Known Problems Sister No Known Problems Brother No Known Problems Brother No Known Problems Brother No Known Problems Maternal Grandmother No Known Problems Maternal Grandfather No Known Problems Paternal Grandmother No Known Problems Paternal Grandfather No Known Problems Daughter No Known Problems Daughter Seizures Son Social History Tobacco Use Smoking status: Never Smokeless tobacco: Never Vaping Use Vaping status: Former Quit date: 10/02/2022 Substances: Nicotine Substance Use Topics Alcohol use: Not Currently Drug use: Not Currently Types: Marijuana Review of Systems Constitutional: Negative for chills and fever. HENT: Negative for sore throat. Respiratory: Negative for cough and shortness of breath. Cardiovascular: Negative for chest pain. Gastrointestinal: Negative for abdominal pain, anorexia, constipation, diarrhea, nausea and vomiting. Genitourinary: Positive for vaginal discharge. Negative for dyspareunia, dysuria, frequency, hematuria, urgency, vaginal bleeding and vaginal pain. Musculoskeletal: Negative for back pain. Skin: Negative for rash. Neurological: Negative for headaches. Objective BP 108/70 Pulse 86 Temp 36.8 C (98.2 F) Resp 16 Wt 79.5 kg (175 lb 4.3 oz) LMP 01/20/2023 (Approximate) SpO2 97% BMI 27.45 kg/m Physical Exam Vitals and nursing note reviewed. Constitutional: General: She is not in acute distress. Appearance: Normal appearance. She is normal weight. She is not ill-appearing, toxic-appearing or diaphoretic. HENT: Head: Normocephalic and atraumatic. Right Ear: Ear canal and external ear normal. Left Ear: Ear canal and external ear normal. Nose: Nose normal. No congestion or rhinorrhea. Mouth/Throat: Mouth: Mucous membranes are moist. Pharynx: No oropharyngeal exudate or posterior oropharyngeal erythema. Eyes: General: Right eye: No discharge. Left eye: No discharge. Extraocular Movements: Extraocular movements intact. Conjunctiva/sclera: Conjunctivae normal. Pupils: Pupils are equal, round, and reactive to light. Cardiovascular: Rate and Rhythm: Normal rate and regular rhythm. Pulses: Normal pulses. Heart sounds: Normal heart sounds. No murmur heard. No friction rub. Pulmonary: Effort: Pulmonary effort is normal. No respiratory distress. Breath sounds: Normal breath sounds. No stridor. No wheezing, rhonchi or rales. Chest: Chest wall: No tenderness. Abdominal: General: Abdomen is flat. There is no distension. Palpations: Abdomen is soft. There is no mass. Tenderness: There is no abdominal tenderness. There is no right CVA tenderness, left CVA tenderness, guarding or rebound. Hernia: No hernia is present. Genitourinary: Comments: Declines Musculoskeletal: General: No swelling, tenderness, deformity or signs of injury. Normal range of motion. Cervical back: Normal range of motion and neck supple. No rigidity. Right lower leg: No edema. Left lower leg: No edema. Lymphadenopathy: Cervical: No cervical adenopathy. Skin: General: Skin is warm and dry. Coloration: Skin is not jaundiced or pale. Findings: No bruising, erythema, lesion or rash. Neurological: General: No focal deficit present. Mental Status: She is alert and oriented to person, place, and time. Cranial Nerves: No cranial nerve deficit. Sensory: No sensory deficit. Motor: No weakness. Coordination: Coordination normal. Gait: Gait normal. Psychiatric: Mood and Affect: Mood normal. Behavior: Behavior normal. Thought Content: Thought content normal. Judgment: Judgment normal. Assessment and Plan ASSESSMENT/PLAN: 1. Suprapubic pressure - ICD9: 789.09, ICD10: R10.2 (primary diagnosis) Differential Diagnosis includes Gastritis, Lactose intolerance, Kidney stones/colic, Appendicitis, Ovarian cyst, and Cystitis - Labs of Urine analysis and urine culture -Vaginal swabs obtained, declines pelvic - Follow up in 2 days or sooner if worsening of symptoms - UA DIP, URINE (POC) - URINE CULTURE - ALFRED/TRICHOMONAS NAAT - BACTERIAL VAGINOSIS NAAT - GONORRHEA/CHLAMYDIA NAAT 2. Vaginal discharge - ICD9: 623.5, ICD10: N89.8 X 2 days Hx of BV and yeast, and this feel similar Declines pelvic Self swabs obtained, and will defer treatment and await results - ALFRED/TRICHOMONAS NAAT - BACTERIAL VAGINOSIS NAAT - GONORRHEA/CHLAMYDIA NAAT Elvira Larsen APRN.[employer]CT[employer] CONSULTANT documented in this encounter [facility] 08-26-2023 Note [facility] Medical Records Department [address] [place] [address] Discharge Summary 08/26/23 0700 MR#: [id number] Acct: [id number] Name: STACI PRICE Rep #: [id number] : 2000 23 From: Kylee Weiss MD PCP: Care Physician,No Primary Status:ADM IN Location: IE700-1 Providers Date of Admission: 08/24/23 Date of Discharge: 08/26/23 Primary Care Physician: No Primary Care Phys Reason For Visit: VAGINAL DELIVERY Diagnosis Discharge Diagnosis (1) (spontaneous vaginal delivery): Status: Acute Code(s): O80 - Encounter for full-term uncomplicated delivery (2) Shoulder dystocia, delivered: Status: Acute Code(s): O66.0 - Obstructed labor due to shoulder dystocia Plan Discharge today. Home with oral iron. Medications at Discharge Home Medications vit no.95-ferrous fumarate 28 mg-folic acid 800 mcg tablet () 1 tab PO DAILY vitamin 06/13/23 acetaminophen 500 mg tablet 1,000 mg (2 x 500 mg) PO Q6H PRN PRN Pain 1-10 Or Fever #30 tabs 08/26/23 ferrous sulfate 325 mg (65 mg iron) tablet (FeroSul) 325 mg PO DAILY 60 days #30 tabs 08/26/23 ibuprofen 600 mg tablet 600 mg PO Q6H PRN PRN Pain Score 1-10 #30 tabs 08/26/23 Hospital Course Operations None Procedures None Summary of Care Provided Minutes Spent on Discharge: 21 Hospital Course: Elective IOL at term. Delivery complicated by shoulder dystocia. Post course uncomplicated. Bottle feeding at discharge Physical Exam Const alert and no apparent distress Narrative: Fundus firm, below umbilicus. Weight / BMI Weight Weight: 89.2 kg Body Mass Index (BMI) 32.7 ABG / Lab / Microbiology Data 08/25/23 05:15 D/C Instructions May resume sexual activity in: 6 weeks Please Follow Up With: Nancy Lambert MD When: Follow up with our office in 1-2 and 6 weeks or as needed. [phone] Meaningful Use Info Meaningful Use Meaningful Use Diagnoses (Choose all that apply): None applicable Ischemic Stroke Statin Dosing Therapy Reference: STATIN DOSE THERAPY REFERENCE: * Patients > 75 years receive moderate or high dose statin therapy. * Patients 75 years or YOUNGER should receive HIGH intensity statin dose unless contraindicated. You will be required to document reason for non-treatment if statin daily dose does not meet guidelines. HIGH DOSE STATIN THERAPY DAILY Atorvastatin > than or = to 40 mg Rosuvastatin > than or = to 20 mg Amlodipine + Atorvastatin > than or = to 2.5/40 mg Ezetimibe + Simvastatin 10/80 mg Simvastatin 80mg Discharge Plan Admission Admit Date/Time: 08/24/23 07:16 Primary Reason for Your Visit: labor Attending Provider: Elvira Guillory Primary Care Provider: Care Physician,Kassi Primary Discharge Orders/Prescriptions Prescriptions: New acetaminophen 500 mg Tablet 1,000 mg PO Q6H PRN PRN (Reason: Pain 1-10 Or Fever) Qty: 30 0RF ibuprofen 600 mg Tablet 600 mg PO Q6H PRN PRN (Reason: Pain Score 1-10) Qty: 30 0RF ferrous sulfate [FeroSul] 325 MG tablet 325 mg PO DAILY 60 Days Qty: 30 1RF Continued PNV cmb#95-ferrous fumarate-FA [] 28 mg iron- 800 mcg tablet 1 tab PO DAILY Discontinued aspirin 81 mg tablet,delayed release (DR/EC) 81 mg PO .Qday Patient Comments: Take 2 tablets by mouth once daily. Referrals / Follow Up: Care Physician,Kassi Primary [Primary Care Provider] - 08/26/23 0702 Cosigner Signature (if applicable): CC: Dr. Kylee Weiss MD; No Primary Care Physician Signed [facility] 08-25-2023 History of Present illness Narrative Patient delivered via at [facility] on 08/24/23 per Elvira Guillory CNM . See OB Outcome note. Kylee Huber, RN documented in this encounter [facility] 08-21-2023 Telephone encounter Note Attempted to notify patient via phone. No answer and received a message that she is not accepting calls. Sent a Mychart message. [facility] 08-21-2023 Miscellaneous Notes Attempted to notify patient via phone. No answer and received a message that she is not accepting calls. Sent a Mychart message. documented in this encounter [facility] 08-20-2023 Progress note Formatting of t his note might be different from the original. S: Staci Price is a 23 year old female who presents at 38.6 weeks gestation for a routine visit. Positive movements. Denies any cramps or contractions. Denies headache, visual changes, chest pain, shortness of breath, vaginal bleeding, leakage of fluid, or dysuria. Feeling well, no complaints. Requesting CE with membrane sweeping. R/B/A discussed and verbal consent obtained. O: See flow sheet Gen: No apparent distress Abd: Gravid, nontender ASSESSMENT/PLAN: 1. Supervision of high risk in third trimester - ICD9: V23.9, ICD10: O09.93 (primary diagnosis) 2. Hx of pre-eclampsia, prior , currently - ICD9: V23.49, ICD10: O09.299 3. 38 weeks gestation of - ICD9: V22.2, ICD10: Z3A.38 - BP normal range - CE 150/-3 - posterior / unable to complete membrane sweep - Labor precautions reviewed and when to call provider - IOL scheduled for next week (elective) - RTO 2 weeks for PP visit Viviana Ashton APRN.CNM [facility] 08-20-2023 Miscellaneous Notes S: Staci Price is a 23 year old female who presents at 38.6 weeks gestation for a routine visit. Positive movements. Denies any cramps or contractions. Denies headache, visual changes, chest pain, shortness of breath, vaginal bleeding, leakage of fluid, or dysuria. Feeling well, no complaints. Requesting CE with membrane sweeping. R/B/A discussed and verbal consent obtained. O: See flow sheet Gen: No apparent distress Abd: Gravid, nontender ASSESSMENT/PLAN: 1. Supervision of high risk in third trimester - ICD9: V23.9, ICD10: O09.93 (primary diagnosis) 2. Hx of pre-eclampsia, prior , currently - ICD9: V23.49, ICD10: O09.299 3. 38 weeks gestation of - ICD9: V22.2, ICD10: Z3A.38 - BP normal range - CE /-3 - posterior / unable to complete membrane sweep - Labor precautions reviewed and when to call provider - IOL scheduled for next week (elective) - RTO 2 weeks for PP visit Viviana Ashton APRN.CNM documented in this encounter [facility] 08-20-2023 Instructions Curt Mauricio MA - 08/20/2023 2:17 PM EDT SEQUENTIAL SCREENINGS The [facility] offers sequential screenings for women who are interested in screenings for chromosomal abnormalities and certain defects during a . The sequential screen combines ultrasound and blood tests to determine the risk of chromosomal abnormalities, including Down's Syndrome (Trisomy 21) and Trisomy 18, as well as open neural tube defects including spina bifida. Ultrasound examination is performed between 11 weeks and 13 weeks gestational age. Blood tests are drawn after the ultrasound and again later in the between 15 and 21 weeks gestational age. Please let your physician know if you are interested in this testing. It will require an appointment with our swimming pool service technician. This is not an ultrasound performed by a physician in our office during a routine visit. SIGNS AND SYMPTOMS OF LABOR 1. Contractions every 10 minutes or more often 2. Clear, pink, or brownish fluid (water) leaking from vagina 3. Feeling that baby is pushing down, pressure 4. Low, dull backache 5. Cramps that feel like a period 6. Cramps with or without diarrhea If you notice any of the above symptoms, contact our office at [phone] and ask to speak with a nurse. After hours, you can call doctors registry at [phone] OR call [facility] at [phone] and ask to have the doctor collision mechanic paged. If you consider this an emergency, dial 9-1-7 or go to your nearest emergency department. NEED HELP? Are you dealing with a violent or abusive relationship? Are you a victim of rape or sexual assult? Call [facility] ([place]) 24 hour Crisis Hotline: 393.187.1166 or 114-119-2683. MANUAL Your Guide to a Healthy manual is now on-line. Visit [email or web address] to download your free copy documented in this encounter [facility] 08-12-2023 Progress note Formatting of t his note might be different from the original. JOHANNY-S: Staci Price is a 23 year old female who presents at 37w5d with KIARA:08/28/2023, by Last Menstrual Period for a routine visit. Denies headache, visual changes, chest pain, shortness of breath, vaginal bleeding, leakage of fluid, or dysuria. Feeling well, no complaints. O: See flow sheet Gen: No apparent distress Abd: Gravid, nontender ASSESSMENT/PLAN: 1. Hx of pre-eclampsia, prior , currently -Continue ASA 2. Supervision of high risk in third trimester -Reviewed IOL vs expectant management, requesting elective IOL at 39wk. 08/24/23 at 0700 mckay 3. 37 weeks gestation of 4. Short interval between pregnancies affecting , antepartum 5. Late care affecting , antepartum 6. Chlamydia trachomatis infection in mother during first trimester of -GC/CT negative at 36 wk 7. History of nicotine vaping -No further use -PTL precautions reviewed and when to call -RTO in one week Elvira Guillory APRN.CNM [facility] 08-12-2023 Miscellaneous Notes JOHANNY-S: Staci Price is a 23 year old female who presents at 37w5d with KIARA:08/28/2023, by Last Menstrual Period for a routine visit. Denies headache, visual changes, chest pain, shortness of breath, vaginal bleeding, leakage of fluid, or dysuria. Feeling well, no complaints. O: See flow sheet Gen: No apparent distress Abd: Gravid, nontender ASSESSMENT/PLAN: 1. Hx of pre-eclampsia, prior , currently -Continue ASA 2. Supervision of high risk in third trimester -Reviewed IOL vs expectant management, requesting elective IOL at 39wk. 08/24/23 at 0700 pitocin and vaughn 3. 37 weeks gestation of 4. Short interval between pregnancies affecting , antepartum 5. Late care affecting , antepartum 6. Chlamydia trachomatis infection in mother during first trimester of -GC/CT negative at 36 wk 7. History of nicotine vaping -No further use -PTL precautions reviewed and when to call -RTO in one week Elvira Guillory APRN.CNM documented in this encounter [facility] 08-12-2023 Instructions Curt Mauricio MA - 08/12/2023 3:08 PM EDT SEQUENTIAL SCREENINGS The [facility] offers sequential screenings for women who are interested in screenings for chromosomal abnormalities and certain defects during a . The sequential screen combines ultrasound and blood tests to determine the risk of chromosomal abnormalities, including Down's Syndrome (Trisomy 21) and Trisomy 18, as well as open neural tube defects including spina bifida. Ultrasound examination is performed between 11 weeks and 13 weeks gestational age. Blood tests are drawn after the ultrasound and again later in the between 15 and 21 weeks gestational age. Please let your physician know if you are interested in this testing. It will require an appointment with our swimming pool service technician. This is not an ultrasound performed by a physician in our office during a routine visit. SIGNS AND SYMPTOMS OF LABOR 1. Contractions every 10 minutes or more often 2. Clear, pink, or brownish fluid (water) leaking from vagina 3. Feeling that baby is pushing down, pressure 4. Low, dull backache 5. Cramps that feel like a period 6. Cramps with or without diarrhea If you notice any of the above symptoms, contact our office at [phone] and ask to speak with a nurse. After hours, you can call doctors registry at [phone] OR call [facility] at [phone] and ask to have the doctor collision mechanic paged. If you consider this an emergency, dial 9-1-0 or go to your nearest emergency department. NEED HELP? Are you dealing with a violent or abusive relationship? Are you a victim of rape or sexual assult? Call [facility] ([place]) 24 hour Crisis Hotline: 507.765.4315 or 071-180-0886. MANUAL Your Guide to a Healthy manual is now on-line. Visit [email or web address] to download your free copy documented in this encounter [facility] 08-04-2023 Progress note Formatting of t his note might be different from the original. JOHANNY-S: Staci Price is a 23 year old female who presents at 35w5d with KIARA:08/28/2023, by Last Menstrual Period for a routine visit. Denies headache, visual changes, chest pain, shortness of breath, vaginal bleeding, leakage of fluid, or dysuria. Feeling well, no complaints. O: See flow sheet Gen: No apparent distress Abd: Gravid, nontender S=D, 30 lb TWG Limited bedside US shows cephalic A: 1. Hx of pre-eclampsia, prior , currently -Continue ASA 81mg PO once daily 2. Late care affecting , antepartum 3. Short interval between pregnancies affecting , antepartum 4. History of marijuana use -No further marijuana use 5. History of nicotine vaping -No further tobacco use 6. Supervision of high risk in second trimester -Would like elective IOL around 39 weeks, will schedule closer to date, Anticipate 08/23. - GBS today, requested cervical exam -PTL precautions reviewed and when to call -RTO in 1 week 7. 36 weeks gestation of - URINE OB DIP B/O - ROUTINE, GROUP B STREP PCR - GONORRHEA/CHLAMYDIA NAAT 8. Chlamydia trachomatis infection in mother during first trimester of -GC/CT completed today. Elvira Guillory APRN.CNM [facility] 08-04-2023 Miscellaneous Notes JOHANNY-S: Staci Price is a 23 year old female who presents at 35w5d with KIARA:08/28/2023, by Last Menstrual Period for a routine visit. Denies headache, visual changes, chest pain, shortness of breath, vaginal bleeding, leakage of fluid, or dysuria. Feeling well, no complaints. O: See flow sheet Gen: No apparent distress Abd: Gravid, nontender S=D, 30 lb TWG Limited bedside US shows cephalic A: 1. Hx of pre-eclampsia, prior , currently -Continue ASA 81mg PO once daily 2. Late care affecting , antepartum 3. Short interval between pregnancies affecting , antepartum 4. History of marijuana use -No further marijuana use 5. History of nicotine vaping -No further tobacco use 6. Supervision of high risk in second trimester -Would like elective IOL around 39 weeks, will schedule closer to date, Anticipate 08/23. - GBS today, requested cervical exam -PTL precautions reviewed and when to call -RTO in 1 week 7. 36 weeks gestation of - URINE OB DIP B/O - ROUTINE, GROUP B STREP PCR - GONORRHEA/CHLAMYDIA NAAT 8. Chlamydia trachomatis infection in mother during first trimester of -GC/CT completed today. Elvira Guillory APRN.CNM documented in this encounter [facility] 08-04-2023 Instructions Curt Mauricio MA - 08/04/2023 10:55 AM EDT SEQUENTIAL SCREENINGS The [facility] offers sequential screenings for women who are interested in screenings for chromosomal abnormalities and certain defects during a . The sequential screen combines ultrasound and blood tests to determine the risk of chromosomal abnormalities, including Down's Syndrome (Trisomy 21) and Trisomy 18, as well as open neural tube defects including spina bifida. Ultrasound examination is performed between 11 weeks and 13 weeks gestational age. Blood tests are drawn after the ultrasound and again later in the between 15 and 21 weeks gestational age. Please let your physician know if you are interested in this testing. It will require an appointment with our swimming pool service technician. This is not an ultrasound performed by a physician in our office during a routine visit. SIGNS AND SYMPTOMS OF LABOR 1. Contractions every 10 minutes or more often 2. Clear, pink, or brownish fluid (water) leaking from vagina 3. Feeling that baby is pushing down, pressure 4. Low, dull backache 5. Cramps that feel like a period 6. Cramps with or without diarrhea If you notice any of the above symptoms, contact our office at [phone] and ask to speak with a nurse. After hours, you can call doctors registry at [phone] OR call [facility] at [phone] and ask to have the doctor collision mechanic paged. If you consider this an emergency, dial 1-7-7 or go to your nearest emergency department. NEED HELP? Are you dealing with a violent or abusive relationship? Are you a victim of rape or sexual assult? Call [facility] ([place]) 24 hour Crisis Hotline: 569.380.2929 or 630-230-3540. MANUAL Your Guide to a Healthy manual is now on-line. Visit [email or web address] to download your free copy documented in this encounter [facility] 07-29-2023 Progress note Formatting of t his note is different from the original. JOHANNY-S: Staci Price is a 23 year old female who presents at 35w5d with KIARA:08/28/2023, by Last Menstrual Period for a routine visit. Denies headache, visual changes, chest pain, shortness of breath, vaginal bleeding, leakage of fluid, or dysuria. Feeling well, no complaints. O: See flow sheet Gen: No apparent distress Abd: Gravid, nontender A: 1. Hx of pre-eclampsia, prior , currently 2. Late care affecting , antepartum 3. Short interval between pregnancies affecting , antepartum 4. History of marijuana use 5. History of nicotine vaping 6. Supervision of high risk in second trimester P: 1) PTL precautions reviewed and when to call 2) RTO in 1 week 3) Continue ASA 4) No further marijuana or tobacco use 5) GBS next visit with GC/CT 6) Would like elective IOL around 39 weeks, will schedule closer to date, Anticipate 08/23. Elvira Guillory APRN.CNM [facility] 07-29-2023 Miscellaneous Notes JOHANNY-S: Staci Price is a 23 year old female who presents at 35w5d with KIARA:08/28/2023, by Last Menstrual Period for a routine visit. Denies headache, visual changes, chest pain, shortness of breath, vaginal bleeding, leakage of fluid, or dysuria. Feeling well, no complaints. O: See flow sheet Gen: No apparent distress Abd: Gravid, nontender A: 1. Hx of pre-eclampsia, prior , currently 2. Late care affecting , antepartum 3. Short interval between pregnancies affecting , antepartum 4. History of marijuana use 5. History of nicotine vaping 6. Supervision of high risk in second trimester P: 1) PTL precautions reviewed and when to call 2) RTO in 1 week 3) Continue ASA 4) No further marijuana or tobacco use 5) GBS next visit with GC/CT 6) Would like elective IOL around 39 weeks, will schedule closer to date, Anticipate 08/23. Elvira Guillory APRN.CNM documented in this encounter [facility] 07-29-2023 Curt Summers MA - 07/29/2023 10:53 AM EDT SEQUENTIAL SCREENINGS The [facility] offers sequential screenings for women who are interested in screenings for chromosomal abnormalities and certain defects during a . The sequential screen combines ultrasound and blood tests to determine the risk of chromosomal abnormalities, including Down's Syndrome (Trisomy 21) and Trisomy 18, as well as open neural tube defects including spina bifida. Ultrasound examination is performed between 11 weeks and 13 weeks gestational age. Blood tests are drawn after the ultrasound and again later in the between 15 and 21 weeks gestational age. Please let your physician know if you are interested in this testing. It will require an appointment with our swimming pool service technician. This is not an ultrasound performed by a physician in our office during a routine visit. SIGNS AND SYMPTOMS OF LABOR 1. Contractions every 10 minutes or more often 2. Clear, pink, or brownish fluid (water) leaking from vagina 3. Feeling that baby is pushing down, pressure 4. Low, dull backache 5. Cramps that feel like a period 6. Cramps with or without diarrhea If you notice any of the above symptoms, contact our office at [phone] and ask to speak with a nurse. After hours, you can call doctors registry at [phone] OR call [facility] at [phone] and ask to have the doctor collision mechanic paged. If you consider this an emergency, dial 0-6-0 or go to your nearest emergency department. NEED HELP? Are you dealing with a violent or abusive relationship? Are you a victim of rape or sexual assult? Call [facility] ([place]) 24 hour Crisis Hotline: 107.456.9272 or 426-866-4196. MANUAL Your Guide to a Healthy manual is now on-line. Visit [email or web address] to download your free copy documented in this encounter [facility] 07-14-2023 Progress note Formatting of t his note might be different from the original. JOHANNY-S: Staci Price is a 23 year old female who presents at 08/28/2023, by Last Menstrual Period for a routine visit. Denies headache, visual changes, chest pain, shortness of breath, vaginal bleeding, leakage of fluid, or dysuria. Feeling well, no complaints. O: See flow sheet Gen: No apparent distress Abd: Gravid, nontender A: 1. Hx of pre-eclampsia, prior , currently 2. Late care affecting , antepartum 3. Short interval between pregnancies affecting , antepartum 4. History of marijuana use 5. History of nicotine vaping 6. Supervision of high risk in second trimester P: 1) PTL precautions reviewed and when to call 2) RTO in 2 weeks 3) Continue ASA 4) No further marijuana or tobacco use Elvira Guillory APRN.CNM [facility] 07-14-2023 Miscellaneous Notes JOHANNY-S: Staci Price is a 23 year old female who presents at 08/28/2023, by Last Menstrual Period for a routine visit. Denies headache, visual changes, chest pain, shortness of breath, vaginal bleeding, leakage of fluid, or dysuria. Feeling well, no complaints. O: See flow sheet Gen: No apparent distress Abd: Gravid, nontender A: 1. Hx of pre-eclampsia, prior , currently 2. Late care affecting , antepartum 3. Short interval between pregnancies affecting , antepartum 4. History of marijuana use 5. History of nicotine vaping 6. Supervision of high risk in second trimester P: 1) PTL precautions reviewed and when to call 2) RTO in 2 weeks 3) Continue ASA 4) No further marijuana or tobacco use Elvira Guillory APRN.CNM documented in this encounter [facility] 07-01-2023 Progress note Formatting of t his note might be different from the original. JOHANNY-S: Staci Price is a 23 year old female who presents at 31w5d with KIARA:08/28/2023, by Last Menstrual Period for a routine visit. Denies headache, visual changes, chest pain, shortness of breath, vaginal bleeding, leakage of fluid, or dysuria. Feeling well, no complaints. O: See flow sheet Gen: No apparent distress Abd: Gravid, nontender S=D, 26lb TWG, cephalic A: ASSESSMENT/PLAN: 1. Chlamydia trachomatis infection in mother during first trimester of 2. Short interval between pregnancies affecting , antepartum 3. Late care affecting , antepartum 4. Abnormal chromosomal and genetic finding on screening mother 5. History of marijuana use 6. History of nicotine vaping 7. Supervision of high risk in second trimester P: 1) PTL precautions reviewed and when to call 2) RTO in 2 weeks 3) plan reviewed, would like epidural 4) Continue DAVE Guillory APRN.CNM [facility] 07-01-2023 Miscellaneous Notes JOHANNY-S: Staci Price is a 23 year old female who presents at 31w5d with KIARA:08/28/2023, by Last Menstrual Period for a routine visit. Denies headache, visual changes, chest pain, shortness of breath, vaginal bleeding, leakage of fluid, or dysuria. Feeling well, no complaints. O: See flow sheet Gen: No apparent distress Abd: Gravid, nontender S=D, 26lb TWG, cephalic A: ASSESSMENT/PLAN: 1. Chlamydia trachomatis infection in mother during first trimester of 2. Short interval between pregnancies affecting , antepartum 3. Late care affecting , antepartum 4. Abnormal chromosomal and genetic finding on screening mother 5. History of marijuana use 6. History of nicotine vaping 7. Supervision of high risk in second trimester P: 1) PTL precautions reviewed and when to call 2) RTO in 2 weeks 3) plan reviewed, would like epidural 4) Continue DAVE Guillory APRN.CNM documented in this encounter [facility] 06-17-2023 Miscellaneous Notes JOHANNY-S: Staci Price is a 23 year old female who presents at 29w5d with KIARA:08/28/2023, by Last Menstrual Period for a routine visit. Denies headache, visual changes, chest pain, shortness of breath, vaginal bleeding, leakage of fluid, or dysuria. Feeling well, no complaints. O: See flow sheet Gen: No apparent distress Abd: Gravid, nontender ASSESSMENT/PLAN: 1. 29 weeks gestation of 2. Encounter for supervision of normal in multigravida 3. Need for vaccination P: 1) PTL precautions reviewed and when to call 2) RTO in 2 weeks 3) Tdap today 4) Continue ASA Elvira Guillory APRN.CNM documented in this encounter [facility] 06-17-2023 History of Present illness Narrative Patient identified by name and date of . Staci Price presents today for a vaccination of Tdap. Patient denies an allergy to latex: yes Patient denies a severe (life-threatening) allergy to a previous dose of Tdap, DTP, DTaP, DT or Td vaccine. Yes Patient denies history of epilepsy or neurological problems: Yes Patient is afebrile and denies being moderately or severely ill: Yes Patient denies history of Guillain-[place] Syndrome (a severe paralytic illness): Yes Tdap Adacel injection was given without incident. See immunizations for details of immunizations administered today. VIS sheet provided: Yes Provider Elvira Guillory CNM was present in office at time of injection. Rosemarie Morelos MA documented in this encounter [facility] 06-17-2023 Instructions Rosemarie Morelos MA - 06/17/2023 3:08 PM EDT SEQUENTIAL SCREENINGS The [facility] offers sequential screenings for women who are interested in screenings for chromosomal abnormalities and certain defects during a . The sequential screen combines ultrasound and blood tests to determine the risk of chromosomal abnormalities, including Down's Syndrome (Trisomy 21) and Trisomy 18, as well as open neural tube defects including spina bifida. Ultrasound examination is performed between 11 weeks and 13 weeks gestational age. Blood tests are drawn after the ultrasound and again later in the between 15 and 21 weeks gestational age. Please let your physician know if you are interested in this testing. It will require an appointment with our swimming pool service technician. This is not an ultrasound performed by a physician in our office during a routine visit. SIGNS AND SYMPTOMS OF LABOR 1. Contractions every 10 minutes or more often 2. Clear, pink, or brownish fluid (water) leaking from vagina 3. Feeling that baby is pushing down, pressure 4. Low, dull backache 5. Cramps that feel like a period 6. Cramps with or without diarrhea If you notice any of the above symptoms, contact our office at [phone] and ask to speak with a nurse. After hours, you can call doctors registry at [phone] OR call [facility] at [phone] and ask to have the doctor collision mechanic paged. If you consider this an emergency, dial 6--5 or go to your nearest emergency department. NEED HELP? Are you dealing with a violent or abusive relationship? Are you a victim of rape or sexual assult? Call [facility] ([place]) 24 hour Crisis Hotline: 669.420.5074 or 576-718-9098. MANUAL Your Guide to a Healthy manual is now on-line. Visit [email or web address] to download your free copy documented in this encounter [facility] 06-09-2023 Miscellaneous Notes 3rd risk assessment form submitted 06/09/23 Mary Bennett RN documented in this encounter [facility] 06-08-2023 Miscellaneous Notes JOHANNY-S: Staci Price is a 23 year old female who presents at 27w5d with KIARA:08/28/2023, by Last Menstrual Period for a routine visit. Denies headache, visual changes, chest pain, shortness of breath, vaginal bleeding, leakage of fluid, or dysuria. Feeling well, no complaints. O: See flow sheet Gen: No apparent distress Abd: Gravid, nontender ASSESSMENT/PLAN: 1. Encounter for supervision of normal in multigravida 2. 27 weeks gestation of P: - PTL precautions reviewed and when to call - RTO in 2 weeks - 1hr GCT, CBC, and RPR today - Rh negative- Rhogam injection today - TDAP today - LARC form reviewed and signed. Patient declines - Depression screen negative - Opioid screen negative - plan form discussed and given to patient. Patient desires unmedicated - PTL precautions and kick counts reviewed - RTO- 2 weeks or sooner if needed Elvira Guillory APRN.CNM documented in this encounter [facility] 06-03-2023 Instructions Curt Mauricio MA - 06/03/2023 3:03 PM EDT SEQUENTIAL SCREENINGS The [facility] offers sequential screenings for women who are interested in screenings for chromosomal abnormalities and certain defects during a . The sequential screen combines ultrasound and blood tests to determine the risk of chromosomal abnormalities, including Down's Syndrome (Trisomy 21) and Trisomy 18, as well as open neural tube defects including spina bifida. Ultrasound examination is performed between 11 weeks and 13 weeks gestational age. Blood tests are drawn after the ultrasound and again later in the between 15 and 21 weeks gestational age. Please let your physician know if you are interested in this testing. It will require an appointment with our swimming pool service technician. This is not an ultrasound performed by a physician in our office during a routine visit. SIGNS AND SYMPTOMS OF LABOR 1. Contractions every 10 minutes or more often 2. Clear, pink, or brownish fluid (water) leaking from vagina 3. Feeling that baby is pushing down, pressure 4. Low, dull backache 5. Cramps that feel like a period 6. Cramps with or without diarrhea If you notice any of the above symptoms, contact our office at [phone] and ask to speak with a nurse. After hours, you can call doctors registry at [phone] OR call [facility] at [phone] and ask to have the doctor collision mechanic paged. If you consider this an emergency, dial or go to your nearest emergency department. NEED HELP? Are you dealing with a violent or abusive relationship? Are you a victim of rape or sexual assult? Call [facility] ([place]) 24 hour Crisis Hotline: 913.854.2487 or 695-521-3166. MANUAL Your Guide to a Healthy manual is now on-line. Visit [email or web address] to download your free copy documented in this encounter [facility] 05-21-2023 Miscellaneous Notes S: Staci Price is a 23 year old female who presents at 25.6 weeks gestation for a routine visit. Feeling good movement. No concerns. Denies headache, visual changes, chest pain, shortness of breath, vaginal bleeding, leakage of fluid, or dysuria. O: See flow sheet Gen: No apparent distress Abd: Gravid, nontender ASSESSMENT/PLAN: 1. 25 weeks gestation of - ICD9: V22.2, ICD10: Z3A.25 (primary diagnosis) 2. Encounter for supervision of normal in multigravida - ICD9: V22.1, ICD10: Z34.80 P: 1) PTL precautions reviewed and when to call 2) RTO 2 weeks for JESSICA with GCT Viviana Ashton APRN.CNM documented in this encounter [facility] 05-07-2023 Miscellaneous Notes Patient left without being seen for visit due to arriving 1 hour early and provider at hospital with a delivery. Viviana Ashton APRN.CNM documented in this encounter [facility] 04-10-2023 Miscellaneous Notes 2nd risk assessment form submitted 04/10/23 Mary Bennett RN documented in this encounter [facility] 02-11-2023 Instructions Curt Mauricio Cma - 02/11/2023 1:34 PM EST SEQUENTIAL SCREENINGS The [facility] offers sequential screenings for women who are interested in screenings for chromosomal abnormalities and certain defects during a . The sequential screen combines ultrasound and blood tests to determine the risk of chromosomal abnormalities, including Down's Syndrome (Trisomy 21) and Trisomy 18, as well as open neural tube defects including spina bifida. Ultrasound examination is performed between 11 weeks and 13 weeks gestational age. Blood tests are drawn after the ultrasound and again later in the between 15 and 21 weeks gestational age. Please let your physician know if you are interested in this testing. It will require an appointment with our swimming pool service technician. This is not an ultrasound performed by a physician in our office during a routine visit. SIGNS AND SYMPTOMS OF LABOR 1. Contractions every 10 minutes or more often 2. Clear, pink, or brownish fluid (water) leaking from vagina 3. Feeling that baby is pushing down, pressure 4. Low, dull backache 5. Cramps that feel like a period 6. Cramps with or without diarrhea If you notice any of the above symptoms, contact our office at [phone] and ask to speak with a nurse. After hours, you can call doctors registry at [phone] OR call [facility] at [phone] and ask to have the doctor collision mechanic paged. If you consider this an emergency, dial 9-1-1 or go to your nearest emergency department. NEED HELP? Are you dealing with a violent or abusive relationship? Are you a victim of rape or sexual assult? Call [facility] ([place]) 24 hour Crisis Hotline: 384.631.1238 or 584-946-2269. MANUAL Your Guide to a Healthy manual is now on-line. Visit [email or web address] to download your free copy documented in this encounter [facility] 02-11-2023 Miscellaneous Notes JOHANNY-S: Staci Price is a 22 year old female who presents at 11w5d with KIARA:08/28/2023, by Last Menstrual Period for a routine visit. Denies headache, visual changes, chest pain, shortness of breath, vaginal bleeding, leakage of fluid, or dysuria. Feeling well, no complaints. O: See flow sheet Gen: No apparent distress Abd: nontender A: ASSESSMENT/PLAN: 1. 11 weeks gestation of 2. Encounter for supervision of normal in multigravida 3. Chlamydia trachomatis infection in mother during first trimester of P: 1) PTL precautions reviewed and when to call 2) RTO in 4 weeks 3) Anatomy US at 20wk 4) PN labs today 5) desires Aneuploidy and carrier screening 6) ASA 81mg PO once daily 7) Chlamydia, BV and yeast treatment completed 8) Chlamydia repeat testing at 20wk and 36 wk 9) No further marijuana use Elvira Guillory APRN.CNM documented in this encounter [facility] 02-05-2023 Miscellaneous Notes Order sent! Viviana Ashton APRN.CNM Patient notified. She would like another Flagyl RX sent to her pharmacy. Left message to call office. Kimberly Ahn RN She can stop taking the cephalexin since urine culture is negative. She will need treatment for the bacterial vaginosis with Flagyl. I can send another prescription in if she needs. It can be rough on stomach. If she wants a break for a couple of days, she can stop taking the Flagyl and restart again. Take with FOOD! Viviana Ashton APRN.CNM 10w5d Currently taking Flagyl for BV (prescribed by JOHANNY 01/30) and cephalexin for UTI (this was prescribed at [facility] ER 01/26). Urine culture in ER showed mixed contaminants and repeat culture here on 01/28 was negative. Calling because she has been unable to keep any of the antibiotics down. She has been taking them with food too. She has been using Monistat 7 as directed and was able to keep down the azithromycin for +chlamydia at at least. Asking what she can do to help and if she will need new rx for Flagyl since she hasn't kept any down. Can she stop cephalexin too? Aware may not get a response until tomorrow. Concepcion Laird RN documented in this encounter [facility] 01-30-2023 Miscellaneous Notes See result note provider message. Patient was called with results. Concepcion Laird RN 10w0d +BV, yeast and chlamydia. Concepcion Laird RN documented in this encounter [facility] 01-28-2023 History of Present illness Narrative OB point of care ultrasound was performed. See imaging tab for details. Elvira Guillory APRN.CNM documented in this encounter [facility] 01-28-2023 Miscellaneous Notes JOHANNY-NOB visit. See progress note. Aneuploidy screening. Elvira Guillory APRN.CNM documented in this encounter [facility] 01-28-2023 Curt Summers Cma - 01/28/2023 1:00 PM EST Please select the following link to access the [facility] Your Guide to a Healthy . [email or web address] documented in this encounter [facility] 01-28-2023 History of Present illness Narrative Images from the original note were not included. INITIAL OB ASSESSMENT OB Provider: Elvira Guillory APRN CNM HPI: Staci is a 22 year old White here to establish Obstetrical Care. Patient's last menstrual period was 11/21/2022 (approximate). from OB Dating Form. Cycles regular was planned, father of baby not involved. He is not the father of her other children. Complaints: None OB History T3 L3 SAB1 IAB1 Ectopic0 Multiple0 Live Births3 # 1 - Date: 2016, Sex: None, Weight: None, GA: 7w0d, Delivery: None, Apgar1: None, Apgar5: None, Living: None, Comments: no complications # 2 - Date: 11/11/18, Sex: Female, Weight: 8 lb 10 oz (3.912 kg), GA: 40w5d, Delivery: Vaginal, Spontaneous, Apgar1: 7, Apgar5: 9, Living: Living, Comments: spontaneous labor, no laceration, EBL 300cc # 3 - Date: 01/08/21, Sex: Male, Weight: 7 lb 13 oz (3.544 kg), GA: 38w5d, Delivery: Vaginal, Spontaneous, Apgar1: 8, Apgar5: 9, Living: Living, Comments: SROM - augmented with pitocin, EBL 300mL, no lacerations, Pre-eclampsia # 4 - Date: 05/27/21, Sex: None, Weight: None, GA: None, Delivery: SPONTANEOUS , Apgar1: None, Apgar5: None, Living: None, Comments: No D&C # 5 - Date: 04/22/22, Sex: Female, Weight: 8 lb 2 oz (3.685 kg), GA: 39w2d, Delivery: Vaginal, Spontaneous, Apgar1: 8, Apgar5: 9, Living: Living, Comments: elective induction, EBL 200mL # 6 - Date: None, Sex: None, Weight: None, GA: None, Delivery: None, Apgar1: None, Apgar5: None, Living: None, Comments: None Previous history: Prior : never History of 4th degree laceration: No History of shoulder dystocia: No History of Hypertensive disorders including pre-eclampsia, chronic hypertension or gestational hypertension: Yes History of gestational diabetes: No Patient's Risk Screening for delivery: Have you had a prior rosario between 20w and 36w6d?: No MEDICAL/PSYCHOSOCIAL HISTORY: History of hemorrhage or bleeding concerns: No Thyroid Disease: No History of chronic hypertension: No History of pre-existing diabetes: No ABO/RH(D) Date Value Ref Range Status 07/05/2020 A POSITIVE Final BMI 26.19 kg/(m^2) History of abnormal pap: No Prior treatment for cervical dysplasia: none. History of STDs: chlamydia and GC Tobacco use: No Caffeine use: Yes, has a 1-2 cups a week of soda Drug use: No-stopped using marijuana recently. Last marijuana use yesterday. Alcohol use: No Multivitamin with Folic acid: Yes Roman Catholic or heritage: No Would refuse blood transfusion if medically necessary: No Are you currently employed? No Do you have any history of depression, anxiety, PTSD, eating disorders or other mood problems: No Do you have any safety concerns or history of traumatic events that you would like to discuss with your provider: No SDOH Screening: How often does this describe you? I don't have enough money to pay my bills: Never Within the past 12 months, have you worried that your food would run out before you had money to buy more: Never In the past 12 months, has lack of reliable transportation kept you from going to medical appointments or work, or from keeping things needed for daily living: Never In the past 12 months, have you had any concerns about having a place to live, or about the condition or quality of your housing: Never Are there any cultural or spiritual needs we should be aware of: No Depression/Anxiety Screening: denies symptoms of depression. OB Depression and Anxiety Screening- This Encounter (since 01/27/2023) Over the past 2 weeks have you felt down, depressed, or hopeless? Negative Over the past two weeks, have you felt little interest or pleasure in doing things? Negative Feeling nervous, anxious or on edge 0-Not at all Not being able to stop or control worrying 0-Not al all Anxiety Pre-Screening Total (If >/= 3 additional questions will be reviewed) 0 Genetic Screening: Partner present: No Patient verbalized knowledge of partner family health history: No Do you or your partner have any personal or family history of defects not previously discussed: No Do you have history of a complicated by anomaly, genetic condition, or demise: No ACOG Recommended Screening Screening for early gestational diabetes testing: Criteria for early testing requires elevated BMI plus one other risk factor: BMI 26.19 kg/(m^2) (risk factor if > than 25 or 23 in Americans) Additional risk factors: None She does meet ACOG criteria for early gestational DM screening. Screening for low dose aspirin use for the prevention of pre-eclampsia: Low dose aspirin should be considered if the patient has one high or two moderate risk factors: High risk factors: None Moderate risk ractors: None She does meet criteria for low dose ASA Marital Status:Single, has new partner now, not previous father of other 3 children, as listed. Analy Ramirez still involved with their 3 children. New partner has multiple other sexual partners and is no longer in the picture. 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 Current Outpatient Medications Medication Sig Dispense Refill ondansetron orally disintegrating (ZOFRAN ODT) 8 mg disintegrating tablet Dissolve 1 (ONE) TABLET on the tongue EVERY 8 HOURS NEEDED FOR NAUSEA albuterol HFA (PROAIR HFA) 90 mcg/actuation inhaler Inhale 2 Puffs as instructed every 4 hours as needed. 1 Each 0 PNV no.[id number] ( GUMMIES) 400 mcg-35 mg- 25 mg-5 mg chew Take 1 tablet by mouth once daily. 30 tablet 5 acetaminophen (TYLENOL EXTRA STRENGTH) 500 mg tablet Take 2 tablets by mouth every 6 hours as needed for pain. FOR PAIN. (Patient not taking: Reported on 08/14/2022) 60 tablet 1 No current facility-administered medications for this visit. Allergies As of Date: 01/28/2023 (No Known Allergies) Fully Assessed 01/28/2023 Does patient have penicillin allergy: No REVIEW OF SYSTEMS: GENERAL: Negative for: Fever or Chills HEENT: Negative for: Headache, Impaired Vision, Ringing in Ears, Nosebleeds NECK: Negative for: Swelling, Pain, Stiffness RESPIRATORY: Negative for: Cough, Shortness of breath, Wheezing GASTROINTESTINAL: Negative for: Heartburn, Constipation, Diarrhea, Blood in stool, Vomiting MUSCULOSKELETAL: Negative for: Muscle or joint pain, stiffness, Joint swelling NEUROLOGIC/PSYCHIATRIC: Negative for: Weakness, Paralysis, Numbness, Tingling, Tremor, Anxiety, Depression, Memory loss SKIN: Negative for: Rash, Itching GENITOURINARY: Went to ER for dehydration 3 days ago-was dx with UTI, asymptomatic. Symptoms + yeast infection x 3 days: burning , itching, redness vaginally with white cheesy discharge. PHYSICAL EXAM: BP 126/68 Ht 5' 7 (1.70m) Wt 167 lb 3.2 oz (75.8kg) LMP 11/21/2022 BMI 26.18 kg/(m^2). GENERAL: pleasant in no apparent distress DERMATOLOGY: Normal, without lesions, non-icteric, and non-hirsute NECK: Supple, full range of motion, no adenopathy, and thyroid normal CHEST: Clear to auscultation, Normal inspiratory effort, Regular rate and rhythm, and No murmurs, clicks, rubs or gallops BREAST: soft, non-tender, symmetric, no dominant mass, normal nipple-areolar complex, no lymphadenopathy, and no nipple discharge ABDOMEN: Benign, soft, non-tender, and no masses NEURO: alert and oriented x3,exam grossly non-focal PELVIS: Perineal body intact. No vaginal or cervical lesions. Cervix closed. Uterus 9 week size. No adnexal masses or tenderness.+ cervical tenderness noted during PAP, friable. Clinical Pelvimetry: Pelvimetry clinically assessed as adequate Limited OB ultrasound exam: single intrauterine , positive cardiac activity, crown-rump length 9 weeks and normal bilateral adnexa OB Risk Screening: Completed, no positive findings documented. SBIRT Staci Price was given the 4's screening tool. Staci answered as follows: OB Opioid Screening - Last Recorded (since 05/03/2022) Did any of your parents have a problem with alcohol or other drug use? Yes mother and father Does your partner have a problem with alcohol or other drug use? No In the past, have you had difficulties in your life because of alcohol or other drugs, including prescription medications? Yes marijuana In the past month have you drunk any alcohol or used other drugs? No Are you taking medication for pain during the either prescribed or not? No Based on the screen and further questions, she is considered at moderate risk due to: Continued low level of use. Patient offered brief intervention and motivational interviewing. In discussing this issue my medical advice was that Staci Price abstain. Her readiness to change(0 lowest - 10 highest) was 8. We discussed her motivation to change based upon this response. Patient agreed that she would: abstain. Patient will return in 2 to discuss her progress with this plan. In total, 30 minutes of personal time was spent administering and interpreting the screen, plus performing a brief intervention. Rachel Goode ASSESSMENT: 22 year old at 9w5d wks gestational age 1. Encounter for supervision of normal in multigravida - ICD9: V22.1, ICD10: Z34.80 (primary diagnosis) - CBC - SYPHILIS TOTAL W/REFLEX - RUBELLA IGG AB - HEP B SURF AG SCRN - HEPATITIS C ANTIBODY IA WITH CONFIRMATION - HIV 1 2 COMBO(AG/AB),WITH REFLEX TO DIFFERENTIATION - TYPE + SCREEN - GONORRHEA/CHLAMYDIA NAAT - URINE CULTURE - OBSTETRIC ULTRASOUND WHI - NUCHAL TRANSLUCENCY WHI - CLERK SECRETARY - PAP TEST - POC MACHINE MAINTENANCE REPAIRER ULTRASOUND - HEMOGLOBIN EVALUATION CASCADE - BACTERIAL VAGINOSIS NAAT - ALFRED/TRICHOMONAS NAAT 2. 9 weeks gestation of - ICD9: V22.2, ICD10: Z3A.09 - CBC - SYPHILIS TOTAL W/REFLEX - RUBELLA IGG AB - HEP B SURF AG SCRN - HEPATITIS C ANTIBODY IA WITH CONFIRMATION - HIV 1 2 COMBO(AG/AB),WITH REFLEX TO DIFFERENTIATION - TYPE + SCREEN - GONORRHEA/CHLAMYDIA NAAT - URINE CULTURE - OBSTETRIC ULTRASOUND WHI - NUCHAL TRANSLUCENCY WHI - CLERK SECRETARY - PAP TEST - POC MACHINE MAINTENANCE REPAIRER ULTRASOUND - HEMOGLOBIN EVALUATION CASCADE - BACTERIAL VAGINOSIS NAAT - ALFRED/TRICHOMONAS NAAT 3. Nausea and vomiting in - ICD9: 643.90, ICD10: O21.9 4. Hx of pre-eclampsia, prior , currently - ICD9: V23.49, ICD10: O09.299 5. Short interval between pregnancies affecting , antepartum - ICD9: V23.89, ICD10: O09.899 6. History of marijuana use - ICD9: 305.23, ICD10: F12.91 7. Candidiasis of vagina during - ICD9: 647.80, 112.1, ICD10: O98.819, B37.31 PLAN: 1) Discussed nutrition, folic acid supplementation, dietary guidelines, exercise, smoking, alcohol, caffeine, and drug use. Discussed routine OB labs including STD/HIV. Discussed how to access Your guide to a health and the [employer]. Discussed aneuploidy and carrier screening. Regarding aneuploidy screening, nuchal translucency/first trimester early anatomy ultrasound and NIPT were discussed. Regarding carrier screening, the myriad screen was discussed. The risks/benefits and limitations of NIPT/aneuploidy screening were reviewed including the potential for false negative and false positive results. We discussed the availability of professional-society guided carrier screening and reviewed the conditions screened and limitations of screening. The availability of genetic counseling was reviewed. Information on aneuploidy/carrier screening was provided. Patient checking with insurance first, then proceeding with NIPT and US next visit. 2) Discuss risks of continued marijuana usage in , particularly in first trimester. Agrees to stop marijuana usage today. Stopped with previous pregnancies also. 3) Complete RX of antibiotic for UTI. Begin Women's probiotic when antibiotic complete. 4) Rx for Terconazole cream per vagina x 7 days or Monistat 7 cream x 7 d (if not covered by insurance). Will await results of vaginitis testing but due to symptoms will treat today. 5) PAP completed today 6) Begin ASA 81 mg daily at 12 weeks for prevention. Follow up in 2 weeks for panel and US. Sooner prn I spent 60 minutes in the visit, with more than 50% of the total [id number] time of the visit in counseling / coordination of care. 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 I have re-performed the HPI, Physical Examination, Assessment and Plan. MINOR Irby APRN.NINO documented in this encounter [facility] 01-25-2023 Hospital Discharge instructions Additional Instructions Follow-up with your LEAD CUSTODIAN within next 3 to 5 days. [facility] Work Phone: 05-27-2022 Discharge summary Note Date/Time May 27, 2022 1:23pm [facility] Medical Records Department [address] [place] [address] Emergency Department Summary 05/27/22 MR#: [id number] Acct: [id number] Name: STACI PRICE Rep #:[id number] : 2000 22 From: Barrett Byrne MD PCP: Care Physician,No Primary Status :REG ER Location: ED HPI History of Present Illness Chief Complaint: Chest Pain Narrative Narrative: Chief complaint says chest pain, patient has more like epigastric pain that started a little over an hour ago. She has no pleuritic component, she is no difficulty breathing. No back pain or tearing sensation. She has no recent fevers or chills. No leg pain or calf pain, no lower extremity edema. PFSH PFSH Medical History (Updated 05/27/22 @ 13:[address] Barrett Byrne MD) Asthma Preeclampsia Home Medications acetaminophen 500 mg tablet 1,000 mg PO Q6H PRN PRN Pain 1-10 Or Fever #0 tabs 04/23/22 [Rx Last Taken Unknown] ibuprofen 600 mg tablet 600 mg PO Q6H PRN PRN Pain Score 1-3 #30 tabs 04/23/22 [Rx Last Taken Unknown] omeprazole 40 mg capsule,delayed release 40 mg PO DAILY #30 caps 05/27/22 [Rx Last Taken Unknown] Allergy/AdvReac Type Severity Reaction Status Date / Time No Known Allergies Allergy Verified 05/27/22 13:03 Social History Smoking Status: Current some day smoker tobacco type: e-cigarettes ROS ROS ED ROS Narrative Past medical history: Reviewed Medications: Reviewed Social history: Noncontributory Review of systems: All systems negative except as indicated General: No fever Eyes: No visual changes ENT: No upper airway congestion, normal voice Neck: No neck pain Cardiovascular: Mostly epigastric pain Respiratory: No shortness of breath or cough Gastrointestinal: As in HPI Genitourinary: No dysuria Musculoskeletal: Denies myalgias no difficulty with ambulation Skin: No rash Neurological: No memory loss, confusion or any focal weakness Psych: No recent behavioral changes Hematologic: No easy bleeding or easy bruising EXAM Physical Exam Narrative Exam Narrative: Physical exam General: Well nourished, Well developed, No Acute Distress Head: Normocephalic, Atraumatic Eyes: Conjunctiva not pale ENT: Moist mucous membranes Neck: Supple, Nontender, No lymphadenopathy Cardiovascular: Regular rate, Regular rhythm Respiratory: No distress, CTA bilaterally Abdomen: Soft, mostly epigastric tenderness to palpation. It is reproducible. She has pain under her xiphoid but not specifically in the chest. Back: Nontender, Normal Inspection. Negative for: CVA tenderness Extremities: Nontender, No edema Skin: Normal color, No rash Neurological: Alert, Normal Strength, Normal Sensation Psychological: Normal affect Const Vital Signs: 05/27/22 13:03 Temperature 97.4 F L Temperature Source Temporal Pulse Rate 64 Respiratory Rate 18 Blood Pressure 131/66 H Blood Pressure Mean 87 Pulse Ox 100 Oxygen Delivery Method Room Air MDM [facility] Narrative Medical decision making narrative: A. Problems addressed Patient has epigastric pain, it is close to chest wall region therefore cardiac work-up was done however I treated her for gastritis with a GI cocktail and her pain is now almost gone. There is no signs or systems of cardiac disease on work-up, no signs or symptoms of pneumonia or pneumothorax. She appears well I talked to her and she will be discharged in stable condition B. Amount and/or complexity of the data 1. CBC CMP and troponin were unremarkable and interpreted by me 2. Independent interpretation of test Telemetry: Sinus rhythm with a rate in the 60s and 70s without ectopy C. Patient was seen by me in the emergency department. I have considered the following differential diagnoses however I was able to exclude all of these through a thorough history and physical exam as well as laboratory testing: PE or any thromboembolic etiologies, myocardial infarction, aortic dissection, esophageal rupture, pneumothorax, musculoskeletal emergencies, upper abdominal pathologies such as pancreatitis, cholecystitis or choledocholithiasis, as well as ruptured bowel. Lab Data Labs: Laboratory Results - last 24 hr 05/27/22 13:30 WBC 7.6 RBC 4.86 Hgb 13.2 Hct 41.8 MCV 86.0 MCH 27.2 MCHC 31.6 L RDW Std Deviation 44.4 H RDW Coeff of Gregory 14.3 Plt Count 192 MPV 12.3 H Immature Gran % (Auto) 0.300 Neut % (Auto) 43.7 L Lymph % (Auto) 40.1 Kimball % (Auto) 8.2 Eos % (Auto) 7.0 H Baso % (Auto) 0.7 Absolute Neuts (auto) 3.3 Absolute Lymphs (auto) 3.03 Nucleated RBC % 0 Radiography Diagnostic Testing: X-ray read by me is unremarkable EKG Initial EKG: Comments: Sinus rhythm with rate of 67. Normal KS and QTc interval. No ischemic changes. Discharge Plan Triage Chief Complaint: Chest Pain ED Provider: Barrett Byrne Dx/Rx/DC Orders Clinical Impression: Acute epigastric pain, Chest pain Instructions: ED Epigastric Pain Uncertain Cause Prescriptions: New omeprazole 40 mg capsule,delayed release(DR/EC) 40 mg PO DAILY Qty: 30 0RF No Action acetaminophen 500 mg Tablet 1,000 mg PO Q6H PRN PRN (Reason: Pain 1-10 Or Fever) Qty: 0 0RF ibuprofen 600 mg Tablet 600 mg PO Q6H PRN PRN (Reason: Pain Score 1-3) Qty: 30 0RF Primary Care Provider: Care Physician,No Primary Referrals: Care Physician,No Primary [Primary Care Provider] - 3-5 Days Disposition Disposition: Home, Self Care What to do if you have Problems For any increased pain, shortness of breath, bleeding, nausea or vomiting, chestpain, or any unexpected problems, contact your Primary Care Provider. Call [facility] ([phone]) or report to the closest Emergency Room. Call 911 if necessary. 05/27/22 8583 <Electronically signed by Barrett Byrne MD> Cosigner Signature (if applicable): CC: No Primary Care Physician ~ Signed [facility] Work Phone: [phone] 142-629503-10-2023 Instructions* Patient Instructions* Elvira Guillory APRN.[facility] - 05/16/2022 9:51 AM EST PATIENT INFO: DEPRESSION Depression After the of a Child or Loss depression depression is a complex mix of physical, emotional, and behavioral changes that occur after giving that are attributed to the chemical, social, and psychological changes associated with having a baby. Who is affected by depression? It is common that as many as 50% to 75% of new mothers experience the baby blues after delivery. About 10% of these women will develop a more severe and longer-lasting depression, called postpartumdepression, after delivery. One in 1,000 women develop the more serious condition called postpartumpsychosis. What factors increase my risk of being depressed after the of my child? Having a personal or family history of depression or PMDD Age at time of -- the younger you are, the higher the risk Living alone Limited social support Children -- the more you have, the more likely you are to be depressed in a subsequent Marital conflict Ambivalence about the A history of depression during -- 50% of depressed women will have depression Types of depression blues -- Better known as the baby blues, this condition affects between 50%-75% of women after delivery. If you are experiencing the baby blues, you will have frequent, prolonged bouts of crying for no apparent reason, sadness, and anxiety. The condition usually begins in the first week (one to four days) after delivery. Although the experience is unpleasant, the condition usually subsides within two weeks without treatment. All you'll need is reassurance and help with the baby andhousehold chores. depression -- This is a far more serious condition than blues, affecting about one in 10 new mothers. If you've had depression before, your risk increases to 30%. Youmay experience alternating highs and lows, frequent crying, irritability, and fatigue, as well as feelings of guilt, anxiety, and inability to care for your baby or yourself. Symptoms range from mild to severe and may appear within days of the delivery or gradually, even up to a year later. Although symptoms can last from several weeks up to a year, treatment with psychotherapy or antidepressants is very effective. psychosis -- This is an extremely severe form of depression and requires emergency medical attention. This condition is relatively rare, affecting only one in 1,000 women after delivery. The symptoms generally occur quickly after delivery and are severe, lasting for a few weeks to several months. Symptoms include severe agitation, confusion, feelings of hopelessness and shame, insomnia, paranoia, delusions or hallucinations, hyperactivity, rapid speech, or josh. psychosis requires immediate medical attention since there is an increased risk of suicide and risk of harm to the baby. Treatment will usually include admission to hospital for the mother, and medicine. What causes depression? More research is needed to determine the link between the rapid drop in hormones after delivery anddepression. The levels of estrogen and progesterone, the female reproductive hormones, increase tenfold during but drop sharply after delivery. By three days , levels of these hormones drop back to pre- levels. In addition to these chemical changes, the social and psychological changes associated with having a baby create an increased risk of depression. Can depression be prevented? Here are some tips that can help prevent, or help you cope with depression: Be realistic about your expectations for yourself and your baby Limit visitors when you first go home Ask for help -- let others know how they can help you Sleep or rest when your baby sleeps! Exercise; take a walk and get out of the house for a break Screen your phone calls Follow a sensible diet; avoid alcohol and caffeine Keep in touch with your family and friends -- do not isolate yourself Foster your relationship with your partner -- make time for each other Expect some good days and some bad days Treating depression depression is treated differently depending on the type and severity of the woman s symptoms. Treatment options include antianxiety or antidepressant medicines, psychotherapy, and participation in a support group for emotional support and education. In the case of psychosis, medicines used to treat psychosis are usually added. Hospital admission is also usually necessary. If you are , don t assume that you can't take medicines for depression, anxiety, or even psychosis. There have been no reports of breastfed babies whose mothers are taking antidepressants suffering any ill effects, but as yet no long-term follow-up data is available. What is the outlook? With professional help, almost all women who experience depression are able to overcome their symptoms. A new mom should seek professional help when: Symptoms persist beyond two weeks She is unable to function normally; she can t cope with everyday situations She has thoughts of harming herself or her baby She is feeling extremely anxious, scared, and panicked most of the day (This information is provided by the [facility] and is not intended to replace the medical advice of your doctor or health care provider. Please consult your health care provider for advice about a specific medical condition. For additional written health information, please contact the Health Information Center at the [facility] or toll-free extension [phone] or visit [email or web address] This document was last reviewed on: 2001) documented in this [facility]03-[facility]23 History of Present illness Narrative* Elvira Guillory APRN.CNM - 05/16/2022 9:36 AM EST DISTANCE HEALTH VISIT This Team Access Model visit is a virtual encounter. It required patient- provider interaction for the medical decision making as documented below. EARLY VISIT Staci Price is a 22 year old for a 3 week virtual virtual visit using [employer] video visit. It required patient-provider interaction for the medical decision making as documented below. Delivery Summary: Patient delivered via by Elvira Guillory on 04/22/22 at [facility]. ROS: General: Denies any fever or chills Hypertension Screening: Headache? No. Visual Changes? No Epigastric Pain? No Increased Swelling? No Taking any BP medications at home? No If applicable, monitoring BP at home? (If Yes, include results) NA Mood: normal Depression: denies symptoms of depression. OB Depression and Anxiety Screening- This Encounter (since 05/15/2022) Over the past 2 weeks have you felt down, depressed, or hopeless? Negative Over the past two weeks, have you felt little interest or pleasure in doing things? Negative Feeling nervous, anxious or on edge 0-Not at all Not being able to stop or control worrying 0-Not al all Anxiety Pre-Screening Total (If >/= 3 additional questions will be reviewed) 0 Feeding: Bottle feeding problems: None Bladder: No dysuria, gross hematuria, urinary frequency, urinary urgency, or incontinence Bowel symptoms: Negative for abdominal discomfort, blood in stools or black stools and change in bowel habits Abdomen: N/A Bleeding: spotting Bottom and Perineum: No issues Sleep: no sleep concerns, feels rested [place] since delivery: Not resumed Emotional support: Yes Exercise: N/A Other issues: None PAST MEDICAL HISTORY Diagnosis Date Anemia Asthma No inhaler since 7th grade Chlamydia 2017 Genital warts Gonorrhea 2017 History of pre-eclampsia in prior , currently No past surgical history on file. FAMILY HISTORY Problem Relation Age of Onset No Known Problems Mother Obesity Father other (lactose intolerance) Sister No Known Problems Sister No Known Problems Sister No Known Problems Brother No Known Problems Brother No Known Problems Brother No Known Problems Maternal Grandmother No Known Problems Maternal Grandfather No Known Problems Paternal Grandmother No Known Problems Paternal Grandfather No Known Problems Daughter Social History Tobacco Use Smoking status: Never Smokeless tobacco: Never Vaping Use Vaping Use: Former Quit date: 08/21/2021 Substances: Nicotine Substance Use Topics Alcohol use: Never Drug use: Never ALLERGIES No Known Allergies Current Outpatient Medications Medication Sig acetaminophen (TYLENOL EXTRA STRENGTH) 500 mg tablet Take 2 tablets by mouth every 6 hours as needed for pain. FOR PAIN. aspirin, enteric coated (ECOTRIN LOW STRENGTH) 81 mg EC tablet Take 1 tablet by mouth once daily. albuterol HFA (PROAIR HFA) 90 mcg/actuation inhaler Inhale 2 Puffs as instructed every 4 hours as needed. PNV no.218-[id number]-cllk ( GUMMIES) 400 mcg-35 mg- 25 mg-5 mg chew Take 1 tablet by mouth once daily. ondansetron (ZOFRAN) 4 mg tablet Take 1 tablet by mouth every 8 hours as needed for nausea/vomiting. No current facility-administered medications for this visit. PHYSICAL EXAMINATION: General: pleasant,female in no apparent distress, A&O x 3. Incision: N/A ASSESSMENT AND PLAN: 22 year old status post with normal course. Contraception plan: Interested in Depo but also discussed IUD and Nexplanon . Reinforced 6-week pelvic rest. Encouraged condom usage should patient deviate. Education: resources provided - see MA/RN note Follow up: Return to Clinic for 6 week visit and as needed Elvira Guillory APRN.CNM documented in this [facility] History and physical note Author Elvira Guillory [facility] April 23, 2022 8:25am Note Date/Time April 22, 2022 8:01am [facility] Medical Records Department [address] [place] [id number] H&P Exam - LEAD CUSTODIAN 04/22/22 0801 MR#: [id number] Acct: [id number] Name: STACI PRICE Rep #:[id number] : 2000 21 From: Elvira MARIANO PCP: Care Physician,No Primary Status :ADM IN Location: CE095-1 HPI - General General Date of Admission: 04/22/22 HPI Narrative STACI PRICE, is a 21 F who presents at 39w2d for elective IOL. . Yesterday presented to office for insertion of Dilapan S outpatient cervical ripening. Contractions overnight but not regular and able to sleep. complicated by history of preeclampsia and bacteriuria in . Maternal Data Information KIARA Calculator Estimated Delivery Date Method Current WG Current Estimate 04/27/22 Manual 39w 3d 39w2d upon admission [facility] Medical History (Updated 04/23/22 @ 08:23 by Elvira Guillory CNM) Asthma Preeclampsia Home Medications acetaminophen 500 mg tablet 1,000 mg PO Q6H PRN PRN Pain 1-10 Or Fever #0 tabs 04/23/22 [Rx Last Taken Unknown] ibuprofen 600 mg tablet 600 mg PO Q6H PRN PRN Pain Score 1-3 #30 tabs 04/23/22 [Rx Last Taken Unknown] Allergy/AdvReac Type Severity Reaction Status Date / Time No Known Allergies Allergy Verified 04/22/22 07:22 Social History Smoking Status: Current some day smoker tobacco type: cigarettes History Elective abortions Hx Para 2 Spontaneous abortions Hx # Term Pregnancies Ectopic pregnancies Hx # Pregnancies Multiple births # of living children NST FHR Rate Baby A Baseline: 145 Variability:: Moderate Accelerations:: 15 x 15 Decelerations:: None FHR Category:: Category I Uterine Activity:: Irregular Vital Signs Vital Signs Vital Signs: 04/22/22 07:40 04/22/22 07:40 04/22/22 07:40 Temperature Temperature Source Temporal Pulse Rate 92 Blood Pressure 136/83 H BP Systolic 136 BP Diastolic 83 04/22/22 07:40 Temperature 99.1 F Temperature Source Pulse Rate Blood Pressure BP Systolic BP Diastolic Weight Weight: 186 lb 11.704 oz Body Mass Index (BMI) 31.0 Physical Exam Narrative 5 dilapan-S rods removed without difficulty in one piece all together. Patient tolerated well. Const alert and oriented x3 General Appearance: cooperative Orientation / Consciousness: awake, oriented to person, oriented to place and oriented to time Exam Limitations: no limitations HEENT normocephalic Head and Scalp: normal to inspection, normocephalic and atraumatic Face and Sinus: normal facial exam Eyes General Eye: normal appearance of both eyes Neck full ROM Chest Chest: symmetrical chest wall rise Resp normal respiratory effort and normal air movement Auscultation: clear to auscultation bilaterally Cardio regular rate, regular rhythm, S1 normal heart sound, S2 normal heart sound, no murmurs, no rub, no gallops and no clicks GI normal to inspection, nondistended, normoactive bowel sounds and non-tender appearance of the vagina normal Narrative: 4.5cm/70%/-2 Bladder / Kidney Exam: no CVA tenderness Back/Spine normal ROM Extremity normal to inspection and full ROM Skin no rashes or lesions noted Neuro oriented x3, CN's II-XII intact bilaterally and moves all extremities Sensorium / Orientation: awake, alert and oriented to person Motor Exam: clonus absent Deep Tendon Reflexes: Rt Patellar (L4): 2+ and Lt Patellar (L4): 2+ Labs Labs Labs: Blood Type A POSITIVE Antibody Screen NEGATIVE Hct 34.0 % (37-47) L Hgb 11.5 g/dL (12.0-15.0) L Obstetrics US Rhogam given: No GBS negative HIV negative HBsAG negative Hep C negative RPR negative Rubella Immune A positive GC/CT negative Assessment & Plan (1) Encounter for elective induction of labor: (2) 39 weeks gestation of : (3) Genital warts: PLAN: Plan 1) Admit to labor and delivery 2) Routine labs 3) Continuous EFM 4) Epidural for pain management 5) Outpatient cervical ripening with Dilapan S, all 5 rods moved without difficulty 6) Dr.Russell montero physician 04/23/22 0825 <Electronically signed by Elvira Guillory CNM> Cosigner Signature (if applicable): CC: NINO Guillory; No Primary Care Physician~ Signed [facility] Work Phone: 1(870) 247-599302-15-2023 Progress note Author Elvira Guillory [facility] April 23, 2022 8:25am Note Date/Time April 23, 2022 8:04am [facility] Medical Records Department [address] [place] [address] Progress Note - OBGYN 04/23/22 08 MR#: [id number] Acct: [id number] Name: STACI PRICE Rep #:[id number] : 2000 21 From: Elvira MARIANO PCP: Care Physician,No Primary Status :ADM IN [facility] Subjective Subjective Doing well per patient and nursing staff. Ambulating and taking PO without difficulty. Voiding and passing flatus. Pain controlled. , services for assistance. Denies headache, visual changes, chest pain, shortness of breath, leg pain or increased bleeding. Lochia normal. Objective Data Objective Data Vital Signs: Vital Signs Temp Pulse Resp BP Pulse Ox O2 Del Method 99.3 F H 91 18 132/99 H 100 Room Air 04/22/22 19:14 04/23/22 05:06 04/23/22 05:06 04/23/22 05:06 04/22/22 15:59 04/23/22 05:06 Oxygen Delivery Method Room Air Weight: 186 lb 11.704 oz Body Mass Index (BMI) 31.0 Intake & Output: Intake and Output for Last 24 Hours 04/21/22 04/22/22 04/23/22 23:59 23:59 23:59 Intake Total 1722.33 / 1722.33 Output Total 700 / 700 600 / 600 Balance 1022.33 / 1022.33 -600 / -600 Lab / Micro Data Result Diagrams: 04/22/22 08:10 Labs: Laboratory Results - last 24 hr 04/22/22 08:10: WBC 12.2 H, RBC 4.09 L, Hgb 11.5 L, Hct 34.0 L, MCV 83.1, MCH 28.1, MCHC 33.8, RDW Std Deviation 40.7, RDW Coeff of Gregory 13.6, Plt Count 223, MPV 11.9, Immature Gran % (Auto) 0.500, Neut % (Auto) 75.5 H, Lymph % (Auto) 15.1 L, Kimball % (Auto) 5.2, Eos % (Auto) 3.3, Baso % (Auto) 0.4, Absolute Neuts (auto) 9.2 H, Absolute Lymphs (auto) 1.84, Nucleated RBC % 0 04/22/22 08:10: Blood Type A POSITIVE, Antibody Screen NEGATIVE ROS Constitutional Constitutional: Reports systems reviewed and no addt'l complaints, except as documented; Denies headache(s) Eyes Eyes: Denies acute decrease in peripheral vision, blurry vision or change in vision ENT HEENT: Reports systems reviewed and no addt'l complaints, except as documented Cardiovascular Cardiovascular: Denies chest pain or dizziness Respiratory/Chest Respiratory/Chest: Denies cough, dyspnea, dyspnea on exertion, shortness of breath at rest or shortness of breath with exertion Gastrointestinal Gastrointestinal: Denies abdominal pain, diarrhea, nausea or vomiting Genitourinary Genitourinary: Denies abdominal discomfort Musculoskeletal Musculoskeletal: Denies limited range of motion Integumentary Integumentary: Reports systems reviewed and no addt'l complaints, except as documented Neurologic Neurologic: Reports systems reviewed and no addt'l complaints, except as documented Psychiatric Psychiatric: Reports systems reviewed and no addt'l complaints, except as documented Endocrine Endocrinology: Reports systems reviewed and no addt'l complaints, except as documented Hematologic/Lymphatic Hematologic/Lymphatic: Reports systems reviewed and no addt'l complaints, exceptas documented Allergic/Immunologic Allergic/Immunologic: Reports systems reviewed and no addt'l complaints, except as documented Physical Exam Const alert and oriented x3 General Appearance: cooperative Orientation / Consciousness: awake, oriented to person, oriented to place and oriented to time Exam Limitations: no limitations HEENT normocephalic Head and Scalp: normal to inspection, normocephalic and atraumatic Face and Sinus: normal facial exam Eyes General Eye: normal appearance of both eyes Neck full ROM Chest Chest: symmetrical chest wall rise Resp normal respiratory effort and normal air movement Auscultation: clear to auscultation bilaterally Cardio regular rate, regular rhythm, S1 normal heart sound, S2 normal heart sound, no murmurs, no rub, no gallops and no clicks GI normal to inspection, nondistended, normoactive bowel sounds and non-tender appearance of the vagina normal Narrative: Fundus firm 2 below U Bladder / Kidney Exam: no CVA tenderness Back/Spine normal ROM Extremity normal to inspection and full ROM Skin no rashes or lesions noted Neuro oriented x3, CN's II-XII intact bilaterally and moves all extremities Sensorium / Orientation: awake, alert and oriented to person Motor Exam: clonus absent Deep Tendon Reflexes: Rt Patellar (L4): 2+ and Lt Patellar (L4): 2+ Assessment & Plan (1) Vaginal delivery: PLAN: Plan 1) Routine PP care 2) Pain management 3) Vitals stable 4) Would like D/C home today 5) Follow up in 2 weeks and 6 weeks 04/23/22 0825 <Electronically signed by Elvira Guillory CNM> Cosigner Signature (if applicable): CC: ~ Signed [facility] Work Phone: [phone]) 540-810202-15-2023 Discharge summary Author Elvira Guillory [facility] April 23, 2022 8:13am Note Date/Time April 23, 2022 8:11am [facility] Medical Records Department [address] [place] [address] Discharge Summary 04/23/22 0810 MR#: [id number] Acct: [id number] Name: STACI PRICE Rep #:[id number] : 2000 21 From: Elvira MARIANO PCP: Care Physician,No Primary Status :ADM IN Location: [place] [address] Providers Date of Admission: 04/22/22 Primary Care Physician: No Primary Care Phys Reason For Visit: VAG DELIVERY Diagnosis Discharge Diagnosis (1) Vaginal delivery: Status: Acute Code(s): O80 - Encounter for full-term uncomplicated delivery Plan 1) Routine PP care 2) Pain management 3) Vitals stable 4) Would like D/C home today 5) Follow up in 2 weeks and 6 weeks Medications at Discharge Home Medications acetaminophen 500 mg tablet 1,000 mg PO Q6H PRN PRN Pain 1-10 Or Fever #0 tabs 04/23/22 ibuprofen 600 mg tablet 600 mg PO Q6H PRN PRN Pain Score 1-3 #30 tabs 04/23/22 Weight / BMI Weight Weight: 186 lb 11.704 oz Body Mass Index (BMI) 31.0 ABG / Lab / Microbiology Data Result Diagrams: 04/22/22 08:10 Laboratory: Laboratory Results - last 24 hr 04/22/22 08:10: WBC 12.2 H, RBC 4.09 L, Hgb 11.5 L, Hct 34.0 L, MCV 83.1, MCH 28.1, MCHC 33.8, RDW Std Deviation 40.7, RDW Coeff of Gregory 13.6, Plt Count 223, MPV 11.9, Immature Gran % (Auto) 0.500, Neut % (Auto) 75.5 H, Lymph % (Auto) 15.1 L, Kimball % (Auto) 5.2, Eos % (Auto) 3.3, Baso % (Auto) 0.4, Absolute Neuts (auto) 9.2 H, Absolute Lymphs (auto) 1.84, Nucleated RBC % 0 04/22/22 08:10: Blood Type A POSITIVE, Antibody Screen NEGATIVE Meaningful Use Info Meaningful Use Diagnoses (Choose all that apply): None applicable Discharge Plan Admission Admit Date/Time: 04/22/22 07:10 Primary Reason for Your Visit: vaginal delivery Attending Provider: Elvira Guillory Primary Care Provider: Care Physician,Kassi Primary Instructions Patient Instructions: After a Vaginal Discharge Orders/Prescriptions Prescriptions: New acetaminophen 500 mg Tablet 1,000 mg PO Q6H PRN PRN (Reason: Pain 1-10 Or Fever) Qty: 0 0RF ibuprofen 600 mg Tablet 600 mg PO Q6H PRN PRN (Reason: Pain Score 1-3) Qty: 30 0RF Referrals / Follow Up: Care Physician,No Primary [Primary Care Provider] - Disposition Disposition (needs filled in before D/C Order can be placed): Home, Self Care 04/23/22 0813 <Electronically signed by Elvira Guillory CNM> Cosigner Signature (if applicable): CC: NINO Guillory; No Primary Care Physician~ Signed [facility] Work Phone: [phone]) 141-221902-15-2023 History of Present illness Narrative* Concepcion Laird RN - 04/23/2022 10:12 AM EST Patient delivered via by Elvira Guillory on 04/22/22 at [facility]. See OB history. Concepcion Laird RN [facility] Procedure [facility]02-13-2023 History of Present illness Narrative* Elvira Guillory APRN.NINO - 04/21/2022 3:16 PM EST Pre-procedure questionnaire Has your baby been moving well today? Yes Are you feeling strong OR regular contractions today? No Have you had vaginal bleeding or spotting this week? Yes Have you had leaking of water from the vagina this week? Yes Have you received instructions about how to take care of yourself at home after your visit today? Yes Do you have any concerns you want to discuss today regarding the procedure today? Yes Risks, benefits, and alternatives reviewed with patient. All questions answered and consent form signed. \ .UNIVERSAL [employer]OTOCOL / SAFETY CHECKLIST Procedure to be Performed: Dilapan S Sign In: A Moment of CARE was completed. Personnel directly involved with the procedure wore the appropriate PPE (Personal Protective Equipment). Special equipment: Dilapan S Patient/Surrogate Stated/Verified: PATIENT VERIFIED(optional for EMERGENT procedures): Patient name, Date of , Relevant allergies, and The intended procedure Time Out Communication: Intended patient and procedure match the source documents. Consent documented and matches the intended procedure. No relevant labs, photos, and/or imaging studies were applicable for review. Correct side/site marked and visible. No medications required for procedure. No fire risk assessment and interventions applicable. Implant(s) inserted: Correct implant(s) confirmed including size and side., Expiration date(s) reviewed., and Sign Out: SIGN OUT (optional for EMERGENT procedures): No specimen collected. All instruments, equipment, possible retained foreign bodies accounted for. Post-procedure follow-up management communicated and Plan of Care Visit completed when applicable. Procedure: Dilapan-S Placement Indication: Cervical Ripening Pre-procedure Diagnosis: Cervical Ripening Post-procedure Diagnosis: Same Procedure Details: Limited OB US at bedside with tattoo designer. MVP 3.1 cm. Using a speculum, the cervvix was visualized. Betadine used to cleanse cervix. Ring forceps used to grasp Dilapan-S bogdan. Sterile water applied to bogdan. A total of 5 Dilapan-S dilators were inserted into the cervical canal. Patient toleratedwell. Handout given on post-procedure expectations and when to call. Dilapan to be removed within 24 hrs of insertion. NST SUMMARY PROVIDER ASSESSMENT AND INTERPRETATION Staci Price is a 21 year old female, , who is at 39w1d with an KIARA of 04/27/2022, by Ultrasound dating method. Indications for NST: Other: Post Dilapan S for cervical ripening Baseline: 140 Variability: Moderate Accelerations: Present 15 X 15 Decelerations: None Contractions: TOCO: None Interpretation: Reactive SIGNATURE: ROMY Martini CNM present and assisted with procedure Post-procedure checklist ? Ensure that procedure is documented in a procedure note, including type of mechanical dilator used. Volume of fluid instilled should be noted for balloon catheters, and number of dilators and gauze sponges placed should be noted for hygroscopic dilators. The H&P should also indicate that outpatient cervical ripening is being utilized. ? Patient observed for at least 20 minutes post-procedure. Evaluate the patient and send to triage if indicated for: ? heavy vaginal bleeding ? concern for ROM ? significant discomfort that does not quickly improve ? Syncope or presyncope ? Any other acute concerns about maternal or wellbeing ? Non-stress test documented post-procedure using standard ? Post-procedure patient handout given & reviewed. ? Labor induction scheduling for approximately 12 hours placement confirmed. No, Dilapan-S inserted, can remain in place up to 24 hours [facility] Inst[facility]* Patient Instructions* Elvira VAGRAS Guillory.HARLEYM - 04/21/2022 2:50 PM EST Patient s Instructions for Outpatient Management: Pre-procedure You and your provider have planned for an induction of labor. Induction of labor means stimulating labor to start before it begins on its own. About 1 in 4 [place] women have their labors induced. Common reasons for recommending an induction include medical conditions such as diabetes or high blood pressure, or going past your due date. Some women also elect to undergo induction at 39 weeks or later to reduce the risk of complications that may occur after this time. Induction of labor can be a slow process, lasting 1-3 days. The first part of an induction is to ensure that the cervix is ripe, or ready for labor. A ripe cervix is soft, thin (effaced) and may be a few centimeters open (dilated). Having a ripe cervix increases the chance of a successful induction. If your cervix is not ripe yet, then the first step of your induction will likely be to ripen the cervix (more on this below!). Once the cervix is ripe, labor contractions can be stimulated. This can be done with an oxytocin drip through an intravenous (IV) (Pitocin), breaking the bag of water, or both. This handout focuses on cervical ripening for women who may be able to begin the cervical ripening portion of their induction at home. The cervix can be ripened using medications called prostaglandins (e.g. misoprostol) and it can be ripened mechanically with either a cervical balloon catheter or small dilators that absorb moisture from the cervix. Often a combination of both medications and mechanical methods are used. Ripening the cervix with medication requires staying in the hospital for close monitoring since the medicine can also produce contractions and everyone s body responds a bit differently. However, mechanical ripening does not start labor contractions, so it can safely be done at home for many women who don t yet need to be in the hospital. Both methods are similarly effective for ripening the cervix, and both take about the same amount of time, on average. Mechanical ripening is most commonly done with a cervical balloon catheter. This is a soft rubber or plastic tube with one or two inflatable balloons at its tip. When inflated with sterile water, the balloon applies gentle pressure to the inner part of the cervix. This works to ripen the cervix by gradually dilating (opening) the cervix a few centimeters, as well as by stimulating the cervix to release natural prostaglandins, the local hormones that ripen the cervix. Hygroscopic dilators may also be used which are matchstick-like dilators that absorb moisture from the cervix and slowly dilate it at they then expand. What should I expect? You and your provider will decide together if you can start your labor induction at home with the cervical balloon catheter. If so, you will schedule an appointment to have one of them placed approximately 12 hours before you are admitted to Labor & Delivery to have your baby. At the clinic visit, you will have the mechanical dilator placed. The provider will gently guide the catheter or dilators through the natural hole in the cervix. For balloon catheters, they will inflate the balloon(s). This can be done with a speculum exam (the provider places a speculum to open the vagina and see the cervix as the device is inserted), or with a digital exam (the provider wears sterile gloves and uses their fingers to guide the device into place). You may have some cramping and discomfort when the dilator is placed, but most people find it resolves shortly after the procedure is over. Once it is in place, you may not feel it at all, or you may feel some pressure. You can walk and use the bathroom as usual with it in place. We will monitor you and your baby to make sure you are safe to go home. In the unlikely event that you experience heavy vaginal bleeding or had breakage of your bag of water at the time of the placement you would be admitted to Labor & Delivery from your appointment to begin your induction. You will then go home and return to the hospital the following day for your induction. As you are waiting at home, the cervix will soften and open gradually. You may notice some bloody show (blood-tinged mucous). You may also continue to have some mild-moderate cramping from the natural hormones that are being stimulated as your body gets ready for labor. Once the cervix is open enough, the balloon catheter or dilators may fall out. Often women feel cramping when the balloon passes through the cervix into the vagina, after which the sensation tends to fade. If you can feel the balloon or dilators pass into the vagina, you can remove and place them in the plastic bag you were given in the office and bring it with you when you come to the hospital. You may still come in at the planned time for your induction. Complications are extremely rare, especially with low-risk patients. Your provider will screen you to ensure that you are a good candidate for the outpatient cervical ripening. If you have any questions, please talk to your provider! Post-procedure patient handout Outpatient Cervical Ripening: Going home with your balloon Congratulations! You re one step closer to having your baby. You now have a mechanical dilator in your cervix, and the plan is to go home while your cervix is ripening (getting ready for labor). You should return to the hospital for your labor induction, or sooner if any problems arise. Your induction is currently scheduled: Day: __04/22/22 Time: __7__:_00am___ What to expect at home: It is common to have mild cramping (as you might before a period) while the balloon is in place. Many people will also have some bloody show (light spotting, or blood-tinged mucous). Neither of these is a cause for alarm. The device may remain in place the entire time you re at home, or it may fall out at some point. If it does fall out, do not be worried--it has done its job, and you are likely a few centimeters dilated! If this happens, place it in the plastic bag you were given and bring it with you to the hospital. Often, during the process of falling out through the cervix, people will have an increase in cramping. This should quickly resolve after it has passed through the cervix and is sitting in the vagina or has fallen all the way out. How to take care of yourself at home: Try to get as much rest as you can. It s fine to take a warm bath before bed to help you sleep, or use a heating pad or Tylenol if you re having mild cramping or mild low back ache. Drink plenty of fluids, and eat light, nutritious meals to keep up your strength. Stretching and gentle exercise help many people to feel well (ex: walking, yoga). It s safe to shower or bathe normally, and use the restroom as you normally would. However, do not place anything inside the vagina (no sex, no douching). When to call your provider: Please call right away if you experience any of the following: ? Vaginal bleeding similar to or heavier than the middle of a period ? Watery fluid leaking from your vagina (this could indicate your bag of water is broken) ? Strong uterine contractions every 5 minutes (or more frequently) for more than an hour o Severe pain of any type o Fever of 100.4 degrees or over, or chills/severe body aches o You don t feel the baby moving normally o Any other new symptom that concerns you If you decide to go to the hospital, please go to the Labor and Delivery where your induction is scheduled and not an outside hospital or emergency room. Self-Care in Early Labor In the early stages of labor, you may experience backaches, pelvic cramping, and even moderate intensity contractions. The following strategies may help to soothe you and to pass the time while also promoting rest to help save your energy for labor: o Distract your mind & body with gentle activity like going for a walk, doing yoga, cleaning the house or playing with your other children. o Have close friends or family over to visit. o Watch a movie or show, perhaps while sitting on a ball or doing gentle stretches o Warm the tender spots with a heating pad or hot water bottle. A sock filled with uncooked rice can be microwaved to serve this purpose. o Take a warm bath or shower; warm water helps your body relax and eases the pain of contractions. If you have a bathtub, try lying on your side on towels or a non-stick mat and pour warm water over yourself or have someone else pour water over you. o Slow, steady rhythmic breathing exercises can be relaxing and distracting. Deep breathing exercises can also reduce nausea and dizziness. o Massage and pressure on aching spots can help to block pain. You can massage yourself by rubbing your belly or laying on your back with a tennis ball/ foam roller/ water jug between your back and the floor. You can also have someone else massage you. Often just firm counter-pressure or pushing hard against a sore muscle/back/hips provides relief. Warm the area with a hot towel and use lotion or oil to help your hands move easily across your skin. o Try changing positions. Often this simple strategy feels better than you anticipate. Try laying on both sides, sitting, sitting forward with hands on knees, squatting, hands & knees, elbows (on a pillow) & knees, and rocking back & forth in any position. Use pillows or a birthing ball. o Sometimes energetic music and conversation can help distract you; other times mellow music or even a quiet room can allow you to focus on your breathing, relaxing the areas of tension and trying to get some rest. o Active relaxation techniques can help you release tension and pain. This can involve either progressive relaxation where you focus on a wave of relaxation moving through your body one muscle group at a time, or it can be paired with massage/touch from a partner or support person. o Meditation may help manage pain by focusing your mind on a certain object, picture or sound instead of on the discomfort. There are many guided meditations available online or on free medication & mindfulness apps. A simple version is to focus on a chosen picture or object or image or sound, or to repeat a word or phrase over & over to yourself. When you become distracted, just bring your attention back to the focal point. o Guided imagery also can help to focus your mind away from discomfort. You may find some helpful recordings online or on free mindfulness & meditations apps. You can also simply close your eyes and choose a favorite place or memory to imagine: focus on all the tiny details of color, smell, sounds, textures, the air. You can play soft music or sounds to help you feel like you re really there. SIGNS AND SYMPTOMS OF LABOR 1. Contractions every 10 minutes or more often 2. Clear, pink, or brownish fluid (water) leaking from vagina 3. Feeling that baby is pushing down, pressure 4. Low, dull backache 5. Cramps that feel like a period 6. Cramps with or without diarrhea If you notice any of the above symptoms, contact our office at [phone] and ask to speak with anurse. After hours, you can call doctors registry at [phone] OR call [facility] at [phone] ask to have the doctor collision mechanic paged. If you consider this an emergency, dial or go to your nearest emergency department. NEED HELP? Are you dealing with a violent or abusive relationship? Are you a victim of rape or sexual assult? Call [facility] ([place]) 24 hour Crisis Hotline: 181.669.5413 or 645-350-3829. MANUAL Your Guide to a Healthy manual is now on-line. Visit [email or web address] to download your free copy documented [facility] encounter[facility] Miscellaneous Notes* Telephone Encounter - Jessy Mcdermott LPN - 04/16/2022 1:39 PM EST Patient scheduled * Telephone Encounter - Concepcion Laird RN - 04/16/2022 1:19 PM EST Left message for patient to call office to schedule virtual visit with JOHANNY today to discuss. Concepcion Laird RN documented in this encounter[facility]23 Miscellaneous Notes* Quick Notes - Elvira Guillory APRN.CNM - 04/14/2022 11:15 AM EST JOHANNY-S: Staci Price is a 21 year old female who presents at 38w1d with KIARA:04/27/2022, by Ultrasound for a routine visit. Good FM. Denies headache, visual changes, chest pain, shortness of breath, vaginal bleeding, leakage of fluid, or dysuria. Feeling well, no complaints. O: See flow sheet Gen: No apparent distress Abd: Gravid, nontender S=D, 28lb TWG ASSESSMENT/PLAN: 1. 38 weeks gestation of 2. Supervision of high risk in third trimester P: 1) Labor instructions reviewed and when to call 2) RTO 1 weeks 3) GBS negative 4) Continue ASA 5) Requesting IOL at 39 weeks electively. Reviewed no medical indications and could be moved due tostaffing. Voiced understanding and would like to proceed due to maternal discomfort. Reviewed option of outpatient cervical ripening with Dilapan or vaughn vs IOL with vaughn and pitocin. She would like to proceed with Dilapan-S. Reviewed r/b/a and information sheet given. Discussed MOA and how insertion occurs. To return on 04/21 for Dilapan-S insertion, limited bedside US and NST post insertion. IOL to be scheduled on 04/22 at 0700 for pitocin and removal of Dilapan-S at [facility]. All questions answered. Elvira Guillory APRN.CNM I spent 30 minutes in the visit, with more than 50% of the total [id number] time of the visit in counseling / coordination of care. documented in this encounter[facility]02[facility]23 Instructions* Patient Instructions* Curt Mauricio [facility] - 04/14/2022 11:10 AM EST SEQUENTIAL SCREENINGS [facility] offers sequential screenings for women who are interested in screenings for chromosomal abnormalities and certain defects during a . The sequential screen combinesultrasound and blood tests to determine the risk of chromosomal abnormalities, including Down's Syndrome (Trisomy 21) and Trisomy 18, as well as open neural tube defects including spina bifida. Ultrasound examination is performed between 11 weeks and 13 weeks gestational age. Blood tests are drawn after the ultrasound and again later in the between 15 and 21 weeks gestational age. Please let your physician know if you are interested in this testing. It will require an appointment withour swimming pool service technician. This is not an ultrasound performed by a physician in our office during a routine visit. SIGNS AND SYMPTOMS OF LABOR 1. Contractions every 10 minutes or more often 2. Clear, pink, or brownish fluid (water) leaking from vagina 3. Feeling that baby is pushing down, pressure 4. Low, dull backache 5. Cramps that feel like a period 6. Cramps with or without diarrhea If you notice any of the above symptoms, contact our office at [phone] and ask to speak with anurse. After hours, you can call [employer] [facility] at [phone] OR call [facility] at [phone] ask to have the doctor collision mechanic paged. If you consider this an emergency, dial [phone] or go to your nearest emergency department. NEED HELP? Are you dealing with a violent or abusive relationship? Are you a victim of rape or sexual assult? Call [facility] ([place]) 24 hour Crisis Hotline: 716.814.8844 or 234-877-3711. MANUAL Your Guide to a Healthy manual is now on-line. Visit [email or web address] to download your free copy documented in this encounterU[facility]01-30-2023 Miscellaneous Notes* Quick Notes - Elvira Guillory APRN.CNM - 04/07/2022 10:20 AM EST JOHANNY-S: Staci Price is a 21 year old female who presents at 37w1d with KIARA:04/27/2022, by Ultrasound for a routine visit. Good FM. Denies headache, visual changes, chest pain, shortness of breath, vaginal bleeding, leakage of fluid, or dysuria. Feeling well, no complaints. O: See flow sheet Gen: No apparent distress Abd: Gravid, nontender S=D, 27 lb TWG, cephalic, confirmed by limited bedside US ASSESSMENT/PLAN: 1. 37 weeks gestation of 2. Supervision of high risk in third trimester P: 1) Labor instructions reviewed and when to call 2) RTO in 1 week 3) Requesting IOL at 39 weeks, will schedule next visit. Elvira Guillory APRN.CNM documented in this encounterU[facility]01-30-2023 Instructions* Patient Instructions* Curt Mauricio Cma - 04/07/2022 10:07 AM EST SEQUENTIAL SCREENINGS [facility] offers sequential screenings for women who are interested in screenings for chromosomal abnormalities and certain defects during a . The sequential screen combinesultrasound and blood tests to determine the risk of chromosomal abnormalities, including Down's Syndrome (Trisomy 21) and Trisomy 18, as well as open neural tube defects including spina bifida. Ultrasound examination is performed between 11 weeks and 13 weeks gestational age. Blood tests are drawn after the ultrasound and again later in the between 15 and 21 weeks gestational age. Please let your physician know if you are interested in this testing. It will require an appointment withour swimming pool service technician. This is not an ultrasound performed by a physician in our office during a routine visit. SIGNS AND SYMPTOMS OF LABOR 1. Contractions every 10 minutes or more often 2. Clear, pink, or brownish fluid (water) leaking from vagina 3. Feeling that baby is pushing down, pressure 4. Low, dull backache 5. Cramps that feel like a period 6. Cramps with or without diarrhea If you notice any of the above symptoms, contact our office at [phone] and ask to speak with anurse. After hours, you can call doctors registry at [phone] OR call [facility] at [phone] ask to have the doctor collision mechanic paged. If you consider this an emergency, dial [phone] or go to your nearest emergency department. NEED HELP? Are you dealing with a violent or abusive relationship? Are you a victim of rape or sexual assult? Call [facility] ([place]) 24 hour Crisis Hotline: 694.321.9608 or 030-660-2611. MANUAL Your Guide to a Healthy manual is now on-line. Visit [email or web address] to download your free copy documented in this encounterUc [facility]01-23-2023 Miscellaneous Notes* Quick Notes - Elvira Guillory APRN.CNM - 03/31/2022 11:22 AM EST JOHANNY-S: Staci Price is a 21 year old female who presents at 36w1d with KIARA:04/27/2022, by Ultrasound for a routine visit. Good FM. Denies headache, visual changes, chest pain, shortness of breath, vaginal bleeding, leakage of fluid, or dysuria. Feeling well, no complaints. O: See flow sheet Gen: No apparent distress Abd: Gravid, nontender S=D, 24 lb TWG ASSESSMENT/PLAN: 1. 36 weeks gestation of P: 1) PTL precautions reviewed and when to call 2) RTO 1 week 3) GBS today 4) Requesting IOL, discussed and can't induce till 39 weeks. Reviewed Elective IOL vs expectant management till 41 weeks. Patient is asking for IOL at 39 weeks. Will discuss at 38 weeks but reviewed staffing and possibility of IOL getting moved. 5) Continue Elvira Guillory APRN.CNM Medical Decision Making: Problems: Low: Acute, uncomplicated illness or injury Data: Unique test result(s) reviewed: 2 Unique test(s) ordered: 2 Assessment requiring an independent historian(s) Risk: Moderate: Drug management Medical Decision Making Level: 4 - Moderate documented in this encounterUc [facility]01-23-2023 Instructions* Patient Instructions* Elvira Guillory APRN.CNM - 03/31/2022 11:12 AM EST Images from the original note were not included. Preparing for labor: Eat dates to promote spontaneous labor! Has an oxytocin-like effect on the body, leading to increased sensitivity of the uterus. Stimulates uterine contractions. Reduces hemorrhage the way oxytocin does. Date fruit contains saturated and unsaturated fatty acids such as oleic, linoleic, and linolenic acids, which are involved in saving and supplying energy and construction of prostaglandins. In addition, serotonin, tannin, and calcium in date fruit contribute to the contraction of smooth muscles of the uterus. Date fruit also has a laxative effect, which stimulates uterine contractions. Six dates per day is the magic number--provided that you re eating smaller deglet noor dates. Deglet noor dates are about 1 inch long. Medjool dates can be up to 2 inches long. If you re eating medjool dates, you only need about 3 dates to reach the 75 grams recommended in the studies. Not sure which type of date you have in your refrigerator? It s probably a deglet noor. How to Eat Dates During Dates are a healthy and delicious snack, so how can you add them to your diet? Add dates during in this awesome oatmeal recipe. Add dates to replace sugar in your favorite recipe or to frandy your homemade almond milk. Use dates and nuts to make an easy pie crust in the food safety technician. Add soaked dates to homemade nut butter for a sweet treat. Add dates to frandy homemade salad dressing. Add dates during easily with these yummy (paleo friendly) bars made from dates. What Is Red Raspberry [place] Tea? Red raspberry leaf tea comes from the leaves of the red raspberry plant. This herbal tea has been used for centuries to support respiratory, digestive and uterine health, particularly during and childbearing years. While usually known as a female herb, red raspberry leaf tea can also helpsupport the prostate and various stomach ailments in children. How It Can Help and Red raspberry leaf tea can help to make labor faster and reduce complications and interventions during . One study found that women who consumed RRL tea regularly are less likely to go overdue or give prematurely. These women may also be less likely to receive an artificial rupture of their membranes or require a section, forceps, or vacuum than the women in the control group. Red raspberry leaf has many other benefits to , , and too. How Much Red Raspberry [place] Tea to Drink? With your doctor or sanitary landfill operator s approval, start with 1 cup of red raspberry leaf tea per day startingin the second trimester. Watch for any uterine cramping or other reactions. If you don t experienceany, you can talk to your healthcare provider about increasing to 2 cups per day. Again, watch for any uterine cramping. If you notice any, cut back on your dosage for two weeks and try again. Keep in mind, some moms have irritable uteruses and can only drink red raspberry leaf tea once theyreach their due date because of uterine cramping. Is Red Raspberry [place] Tea the Same as Raspberry [place] Tea? How About Plain Old Raspberry Tea? Sometimes. You really need to look at the ingredients to be sure. Note that there is no difference between red raspberry leaf and raspberry leaf. [employer] or [employer] (deja mi)s Raspberry [place] Tea are two good brands. The red raspberry leaf teas that we recommend are 100% red raspberry leaf. Other teas labeled as raspberry are often a blend of rosehips, hibiscus, raspberry leaves, and raspberry flavor. So they maynot be as effective. The teas to avoid are raspberry-flavored herbal teas, which may have ingredients like hibiscus, cayla hips, apples, elderberries, natural and artificial raspberry flavors. Teas like this don t containraspberry leaf at all and thus won t offer any of the potential benefits of RRLT outlined in this article. [employer] www.[employer] [place] I named this 'circuit' after my friend Milagroslatasha Malone, who shared and discussed it with me when I was working with a client whose labor seemed to be stalled out and no longer progressing... This circuit is useful to help get the baby lined up, ideally, in the Left Occiput Anterior (DEBO) Position, both before labor begins and when some corrections need to be done during labor. Prenatally, this position set can help to rotate a baby. As a natural method of induction, this can help get things going if baby just needed a gentle nudge of position to set things off. To the best of my knowledge, this group of positions will not hurt a baby that is already lined up correctly. - Liz Foster Before you Begin..... This circuit takes at least 90 minutes to complete so clear your schedule and make mental preparations so you can relax in your environment. The second step requires a lot of pillows so gather them up before beginning Before starting, you should empty your bladder! Have a nice drink nearby, and make sure it has a straw! If you are having contractions, this circuit should bedone through contractions, try not to change positions between steps Step One: Open-knee Chest Stay in this position for 30 minutes, start in cat/cow, then drop your chest as low as you can to the bed or the floor and your bottom as high as you can. Knees should be fairly wide apart, and the angle between the torso/thighs should be wider than 90 degrees. Wiggle around, prop with lots of pillows and use this time to get totally relaxed.This position allows the baby to scoot out of the pelvis a bit and gives them room to rotate, shift their head position, etc. If the person finds it helpful,careful positioning with a rebozo under the belly, with gentle tension from a support person behindcan help maintain this position for the full 30minutes. Step Two: Exaggerated Left Side Lying Roll to your left side, bringing your top leg as high as possible and keeping your bottom leg straight. Roll forward as much as possible,again using a lot of pillows. Sink into the bed and relax somemore. If you fall asleep, that's totally okay and you can stay there! If not, stay here for at least another half an hour. Try and get your top right leg up towards your head and get as rolled over onto your belly as much as possible. If you repeat the circuit during labor, try alternating left and right sides. We know the photo the left is actually right side... just flip the image in your head. Step Three: Moving and Lunges Lunge, walk stairs facing sideways, 2 at a time, (have a fly setter downstairs of you!), take a walk outside with one foot on the curb and the other on the street, sit on a ball and hula- anything that's upright and putting your pelvis in open, asymmetrical positions. Spend at least 30 minutes doing this one as well to give your baby a chance to move down. If you are lunging or stair or curb walking, you should lunge/walk/go up stairs in the direction that feels better to you. The sapp with the lunge is that the toes of the higher leg and mom's belly button should be at right angles. Do not lunge over your knee, that closes the pelvis. Milagros Malone: Circuit Creator - www.idlewildTytanium Ideassouth coastal [facility] campus emergency departmentbirthcollective.[employer] Liz Foster, CD, BDT (JEREMÍAS), LCCE, FACCE: Supporting Content - www.lizg-Nosticsanthony.[employer]. Gabriella Weir: Photography - www.k[employer]igral [employer]. Shiloh Quispe CD/CDT (LOUISE): Print and Quality Control Projectionist - www.[employer].com [employer] Master[employer] www.You[employer]. SIGNS AND SYMPTOMS OF LABOR 1. Contractions every 10 minutes or more often 2. Clear, pink, or brownish fluid (water) leaking from vagina 3. Feeling that baby is pushing down, pressure 4. Low, dull backache 5. Cramps that feel like a period 6. Cramps with or without diarrhea If you notice any of the above symptoms, contact our office at [phone] and ask to speak with anurse. After hours, you can call doctors registry at [phone] OR call [facility] at [phone] ask to have the doctor collision mechanic paged. If you consider this an emergency, dial 11-07- or go to your nearest emergency department. NEED HELP? Are you dealing with a violent or abusive relationship? Are you a victim of rape or sexual assult? Call [facility] ([place]) 24 hour Crisis Hotline: 442.140.7190 or 513-307-6039. MANUAL Your Guide to a Healthy manual is now on-line. Visit [email or web address] to download your free copy documented [facility] encounter[facility] Miscellaneous Notes* Telephone Encounter - Yumiko Soto MD - 03/27/2022 9:55 AM EST Ok for letter * Telephone Encounter - Jessy Mcdermott LPN - 03/27/2022 9:37 AM EST Please advise if ok to give letter for work? documented in this encounter[facility]23 Miscellaneous Notes* Quick Notes - Berlin Rothman MD - 03/21/2022 11:02 AM EST KJ - VB No. LOF No. CTXS No. Movement: present. Other c/o: No. Medication list reviewed. Physical Exam See Flow Sheet Gen: no accute distress, well appearing Abd: soft, nontender, gravid A/P 34w5d Estimated Date of Delivery: 04/27/22 PTL precautions reviewed, Kick counts reviewed. Berlin Rothman MD documented in this encounterU[facility]01-13-2023 Instructions* Patient Instructions* Allyson Curtispao Henry - 03/21/2022 10:46 AM EST SEQUENTIAL SCREENINGS The [facility] offers sequential screenings for women who are interested in screenings for chromosomal abnormalities and certain defects during a . The sequential screen combinesultrasound and blood tests to determine the risk of chromosomal abnormalities, including Down's Syndrome (Trisomy 21) and Trisomy 18, as well as open neural tube defects including spina bifida. Ultrasound examination is performed between 11 weeks and 13 weeks gestational age. Blood tests are drawn after the ultrasound and again later in the between 15 and 21 weeks gestational age. Please let your physician know if you are interested in this testing. It will require an appointment withour swimming pool service technician. This is not an ultrasound performed by a physician in our office during a routine visit. SIGNS AND SYMPTOMS OF LABOR 1. Contractions every 10 minutes or more often 2. Clear, pink, or brownish fluid (water) leaking from vagina 3. Feeling that baby is pushing down, pressure 4. Low, dull backache 5. Cramps that feel like a period 6. Cramps with or without diarrhea If you notice any of the above symptoms, contact our office at [phone] and ask to speak with anurse. After hours, you can call doctors registry at [phone] OR call [facility] at [phone] ask to have the doctor collision mechanic paged. If you consider this an emergency, dial 9-1-1 or go to your nearest emergency department. NEED HELP? Are you dealing with a violent or abusive relationship? Are you a victim of rape or sexual assult? Call [facility] ([place]) 24 hour Crisis Hotline: 965.262.9222 or 664-099-4686. MANUAL Your Guide to a Healthy manual is now on-line. Visit [email or web address] to download your free copy documented in this encounterU[facility]12-29-2022 Miscellaneous Notes* Quick Notes - Berlin Rothman MD - 03/06/2022 4:58 PM EST KJ - Patient seen urgently for upper abdominal pain. The pain is currently gone. Denies N/V. Deniesheadaches. VB No. LOF No. CTXS No. Movement: present. Medication list reviewed. Physical Exam See Flow Sheet Gen: no accute distress, well appearing Abd: soft, nontender, gravid A/P 32w4d Estimated Date of Delivery: 04/27/22 Upper abdominal pain - suspect musculoskeletal. Advised on conservative measures. Rx tylenol given. PTL precautions reviewed, Kick counts reviewed. Berlin Rothman MD documented in this encounterU[facility]12-29-2022 Instructions* Patient Instructions* Allyson Gannon Ma - 03/06/2022 4:26 PM EST SEQUENTIAL SCREENINGS The [facility] offers sequential screenings for women who are interested in screenings for chromosomal abnormalities and certain defects during a . The sequential screen combinesultrasound and blood tests to determine the risk of chromosomal abnormalities, including Down's Syndrome (Trisomy 21) and Trisomy 18, as well as open neural tube defects including spina bifida. Ultrasound examination is performed between 11 weeks and 13 weeks gestational age. Blood tests are drawn after the ultrasound and again later in the between 15 and 21 weeks gestational age. Please let your physician know if you are interested in this testing. It will require an appointment withour swimming pool service technician. This is not an ultrasound performed by a physician in our office during a routine visit. SIGNS AND SYMPTOMS OF LABOR 1. Contractions every 10 minutes or more often 2. Clear, pink, or brownish fluid (water) leaking from vagina 3. Feeling that baby is pushing down, pressure 4. Low, dull backache 5. Cramps that feel like a period 6. Cramps with or without diarrhea If you notice any of the above symptoms, contact our office at [phone] and ask to speak with anurse. After hours, you can call doctors registry at [phone] OR call [facility] at [phone] ask to have the doctor collision mechanic paged. If you consider this an emergency, dial or go to your nearest emergency department. NEED HELP? Are you dealing with a violent or abusive relationship? Are you a victim of rape or sexual assult? Call [facility] ([place]) 24 hour Crisis Hotline: 206.801.8842 or 192-754-6778. MANUAL Your Guide to a Healthy manual is now on-line. Visit [email or web address] to download your free copy documented in this encounterUc [facility]12-29-2022 Miscellaneous Notes* Telephone Encounter - Kylee Huber RN - 03/06/2022 4:07 PM EST Called patient. She will come to the office instead of the hospital for evaluation. Kylee Huber RN * Telephone Encounter - Berlin Rothman MD - 03/06/2022 3:58 PM EST If patient can come right in I can see her in the office Berlin Rothman MD * Telephone Encounter - Kylee Huber RN - 03/06/2022 3:51 PM EST 32w4d Patient calling with c/o upper abdominal pain. Patient tearful on the phone. Pain rate of 10. Intermittent kind of sharp. Denies VB or LOF. Good FM. Patient states this happened at 29 weeks too. Advised to go to [facility] for evaluation. Will notify the hospital. Kylee Huber RN documented in this encounterUc [facility]12-16-2022 History of Present illness Narrative* Curt Mauricio Cma - 02/21/2022 10:23 AM EST Patient identified by name and date of . Staci Price presents today for a vaccination of Tdap. Patient denies an allergy to latex: yes Patient denies a severe (life-threatening) allergy to a previous dose of Tdap, DTP, DTaP, DT or Td vaccine. Yes Patient denies history of epilepsy or neurological problems: Yes Patient is afebrile and denies being moderately or severely ill: Yes Patient denies history of Guillain-[place] Syndrome (a severe paralytic illness): Yes Tdap Adacel injection was given without incident. See immunizations for details of immunizations administered today. VIS sheet provided: Yes Provider Elvira Guillory CNM was present in office at time of injection. Curt Mauricio Cma * Elvira Guillory APRN.CNM - 02/21/2022 10:18 AM EST documented in this encounterUc [facility]12-16-2022 Miscellaneous Notes* Quick Notes - Elvira Guillory APRN.CNM - 02/21/2022 10:16 AM EST JOHANNY-S: Staci Price is a 21 year old female who presents at 30w5d with KIARA:04/27/2022, by Ultrasound for a routine visit. Good FM. Denies headache, visual changes, chest pain, shortness of breath, vaginal bleeding, leakage of fluid, or dysuria. Feeling well, no complaints. Had Influenza A, feelingbetter. O: See flow sheet Gen: No apparent distress Abd: Gravid, nontender S=D, 13lb TWG ASSESSMENT/PLAN: 1. 30 weeks gestation of P: 1) PTL precautions reviewed and when to call 2) RTO in 2 weeks 3) Continue ASA 4) Tdap today 5) plan given. 6) Declines Influenza vaccine. Reviewed will have other strains for protection, declines. Elvira Guillory APRN.CNM documented in this encounterU[facility]12-16-2022 Instructions* Patient Instructions* Curt Mauricio Cma - 02/21/2022 10:02 AM EST SEQUENTIAL SCREENINGS [facility] offers sequential screenings for women who are interested in screenings for chromosomal abnormalities and certain defects during a . The sequential screen combinesultrasound and blood tests to determine the risk of chromosomal abnormalities, including Down's Syndrome (Trisomy 21) and Trisomy 18, as well as open neural tube defects including spina bifida. Ultrasound examination is performed between 11 weeks and 13 weeks gestational age. Blood tests are drawn after the ultrasound and again later in the between 15 and 21 weeks gestational age. Please let your physician know if you are interested in this testing. It will require an appointment withour swimming pool service technician. This is not an ultrasound performed by a physician in our office during a routine visit. SIGNS AND SYMPTOMS OF LABOR 1. Contractions every 10 minutes or more often 2. Clear, pink, or brownish fluid (water) leaking from vagina 3. Feeling that baby is pushing down, pressure 4. Low, dull backache 5. Cramps that feel like a period 6. Cramps with or without diarrhea If you notice any of the above symptoms, contact our office at [phone] and ask to speak with anurse. After hours, you can call doctors registry at [phone] OR call [facility] at [phone] ask to have the doctor collision mechanic paged. If you consider this an emergency, dial 9-1-4 or go to your nearest emergency department. NEED HELP? Are you dealing with a violent or abusive relationship? Are you a victim of rape or sexual assult? Call [facility] ([place]) 24 hour Crisis Hotline: 376.818.8177 or 076-055-0034. MANUAL Your Guide to a Healthy manual is now on-line. Visit [email or web address] to download your free copy documented in this encounterUc [facility]12-11-2022 Miscellaneous Notes* Telephone Encounter - Marian Means - 02/16/2022 11:02 AM EST Patient given results and verbalized understanding of instructions given. Marian Means * Telephone Encounter - Marcos Bowens APRN.CNP - 02/16/2022 10:40 AM EST Please notify positive for flu, negative for covid. Continue tamiflu F/u for continued/worsening s/s. documented in this encounterUc [facility]12-06-2022 Miscellaneous Notes* Quick Notes - Elvira Guillory APRN.CNM - 02/11/2022 10:26 AM EST JOHANNY-S: Staci Price is a 21 year old female who presents at 29w2d with KIARA: 04/27/2022, by Ultrasound for follow up visit. Good FM. Denies headache, visual changes, chest pain, shortness of breath, vaginal bleeding, leakage of fluid, or dysuria. [facility] pain in upper abdomen across the entire top of abdomen. Entire stomach felt tight. Pain wrapped around into her back on theleft side. Pain lasted for entire hour 10/10. Discharged home and no further issue. No vaginal bleeding or fluid leakage. No N/V, diarrhea or constipation. O: See flow sheet Gen: No apparent distress Abd: gravid, non tender. No CVAT ASSESSMENT/PLAN: 1. 29 weeks gestation of P: 1) PTL precautions reviewed and when to call 2) RTO as scheduled 3) Urine sample for back pain 4) No further pain. Reviewed when to call and return if pain returns for further work up. Increasedhydration, slow positional changes. Elvira Guillory APRN.CNM documented in this encounterUc [facility]12-06-2022 Instructions* Patient Instructions* Rosemarie Morelos MA - 02/11/2022 9:59 AM EST SEQUENTIAL SCREENINGS The [facility] offers sequential screenings for women who are interested in screenings for chromosomal abnormalities and certain defects during a . The sequential screen combinesultrasound and blood tests to determine the risk of chromosomal abnormalities, including Down's Syndrome (Trisomy 21) and Trisomy 18, as well as open neural tube defects including spina bifida. Ultrasound examination is performed between 11 weeks and 13 weeks gestational age. Blood tests are drawn after the ultrasound and again later in the between 15 and 21 weeks gestational age. Please let your physician know if you are interested in this testing. It will require an appointment withour swimming pool service technician. This is not an ultrasound performed by a physician in our office during a routine visit. SIGNS AND SYMPTOMS OF LABOR 1. Contractions every 10 minutes or more often 2. Clear, pink, or brownish fluid (water) leaking from vagina 3. Feeling that baby is pushing down, pressure 4. Low, dull backache 5. Cramps that feel like a period 6. Cramps with or without diarrhea If you notice any of the above symptoms, contact our office at [phone] and ask to speak with anurse. After hours, you can call doctors registry at [phone] OR call [facility] at [phone] ask to have the doctor collision mechanic paged. If you consider this an emergency, dial 1-6-5 or go to your nearest emergency department. NEED HELP? Are you dealing with a violent or abusive relationship? Are you a victim of rape or sexual assult? Call [facility] ([place]) 24 hour Crisis Hotline: 271.210.6061 or 851-227-1144. MANUAL Your Guide to a Healthy manual is now on-line. Visit [email or web address] to download your free copy documented in this encounterUc [facility]12-02-2022 Miscellaneous Notes* Quick Notes - Elvira Guillory APRN.CNM - 02/07/2022 2:50 PM EST S: Staci Price is a 21 year old female who presents at 28w5d with KIARA:04/27/2022, by Ultrasound for a routine visit. Denies headache, visual changes, chest pain, shortness of breath, vaginal bleeding, leakage of fluid, or dysuria. Feeling well, no complaints. O: See flow sheet Gen: No apparent distress Abd: Gravid, nontender ASSESSMENT/PLAN: 1. 28 weeks gestation of - 1 hour GCT, CBC, and RPR today - A positive blood type - TDAP next visit due to current cold. Will also get influenza vaccine. - LARC form reviewed and signed. Patient declines - Depression screen negative - Opioid screen negative - plan form discussed, epidural did not work last time, would like epidural. - PTL precautions and kick counts reviewed - RTO- 2 weeks or sooner if needed SBIRT Staci Price was given the 4P's screening tool. Staci answered as follows: OB Opioid Screening - Last Recorded (since 05/13/2021) Did any of your parents have a problem with alcohol or other drug use? No Does your partner have a problem with alcohol or other drug use? No In the past, have you had difficulties in your life because of alcohol or other drugs, including prescription medications? No In the past month have you drunk any alcohol or used other drugs? No Are you taking medication for pain during the either prescribed or not? No Based on the screen and further questions, she is considered at Low risk due to:No past or current use. Positive reinforcement of current behavior. Elvira Guillory APRN.CNM documented in this encounterUc [facility]12-02-2022 History of Present illness Narrative* Gabby Savage Ma - 02/07/2022 2:44 PM EST Patient identified by name and date of . Staci Priec presents today for a vaccination of Tdap. Patient denies an allergy to latex: yes Patient denies a severe (life-threatening) allergy to a previous dose of Tdap, DTP, DTaP, DT or Td vaccine. Yes Patient denies history of epilepsy or neurological problems: Yes Patient is afebrile and denies being moderately or severely ill: Yes Patient denies history of Guillain-[place] Syndrome (a severe paralytic illness): Yes Tdap Adacel injection was given without incident. See immunizations for details of immunizations administered today. VIS sheet provided: Yes Provider Kahlil was present in office at time of injection. documented in this encounterUc [facility] Hospital12-02-2022 Instructions* Patient Instructions* Curt Mauricio [facility] - 02/07/2022 2:26 PM EST SEQUENTIAL SCREENINGS The [facility] offers sequential screenings for women who are interested in screenings for chromosomal abnormalities and certain defects during a . The sequential screen combinesultrasound and blood tests to determine the risk of chromosomal abnormalities, including Down's Syndrome (Trisomy 21) and Trisomy 18, as well as open neural tube defects including spina bifida. Ultrasound examination is performed between 11 weeks and 13 weeks gestational age. Blood tests are drawn after the ultrasound and again later in the between 15 and 21 weeks gestational age. Please let your physician know if you are interested in this testing. It will require an appointment withour swimming pool service technician. This is not an ultrasound performed by a physician in our office during a routine visit. SIGNS AND SYMPTOMS OF LABOR 1. Contractions every 10 minutes or more often 2. Clear, pink, or brownish fluid (water) leaking from vagina 3. Feeling that baby is pushing down, pressure 4. Low, dull backache 5. Cramps that feel like a period 6. Cramps with or without diarrhea If you notice any of the above symptoms, contact our office at [phone] and ask to speak with anurse. After hours, you can call doctors registry at [phone] OR call [facility] at [phone] ask to have the doctor collision mechanic paged. If you consider this an emergency, dial 4--3 or go to your nearest emergency department. NEED HELP? Are you dealing with a violent or abusive relationship? Are you a victim of rape or sexual assult? Call [facility] ([place]) 24 hour Crisis Hotline: 807.614.2054 or 043-391-6702. MANUAL Your Guide to a Healthy manual is now on-line. Visit [email or web address] to download your free copy documented in [facility] encounter[facility]22 Miscellaneous Notes* Telephone Encounter - Theresa Aranda MD - 01/23/2022 4:29 PM EST Order placed documented in this encounterU[facility]11-04-2022 Miscellaneous Notes* Quick Notes - Yumiko Soto MD - 01/10/2022 3:34 PM EDT DM-Pt doing well. Denies vaginal Bleeding, Leaking fluid, or regular Contractions. Pt reports good movement Physical Exam: Gen: female in no apparent distress Abd: soft, Gravid. Non tender to palpation. See flow sheet A/P: @ 24.5 weeks 1) continue ASA 2) 28 week labs ordered 3) RTO 4 wks 4) reports will get flu next visit- had to leave today. Yumiko Webb MD documented in this encounterU[facility]11-04-2022 Instructions* Patient Instructions* Curt Mauricio Cma - 01/10/2022 2:17 PM EDT SEQUENTIAL SCREENINGS The [facility] offers sequential screenings for women who are interested in screenings for chromosomal abnormalities and certain defects during a . The sequential screen combinesultrasound and blood tests to determine the risk of chromosomal abnormalities, including Down's Syndrome (Trisomy 21) and Trisomy 18, as well as open neural tube defects including spina bifida. Ultrasound examination is performed between 11 weeks and 13 weeks gestational age. Blood tests are drawn after the ultrasound and again later in the between 15 and 21 weeks gestational age. Please let your physician know if you are interested in this testing. It will require an appointment withour swimming pool service technician. This is not an ultrasound performed by a physician in our office during a routine visit. SIGNS AND SYMPTOMS OF LABOR 1. Contractions every 10 minutes or more often 2. Clear, pink, or brownish fluid (water) leaking from vagina 3. Feeling that baby is pushing down, pressure 4. Low, dull backache 5. Cramps that feel like a period 6. Cramps with or without diarrhea If you notice any of the above symptoms, contact our office at [phone] and ask to speak with anurse. After hours, you can call doctors registry at [phone] OR call [facility] at [phone] ask to have the doctor collision mechanic paged. If you consider this an emergency, dial 11-07-4 or go to your nearest emergency department. NEED HELP? Are you dealing with a violent or abusive relationship? Are you a victim of rape or sexual assult? Call [facility] ([place]) 24 hour Crisis Hotline: 351.938.2359 or 015-127-6866. MANUAL Your Guide to a Healthy manual is now on-line. Visit [email or web address] to download your free copy documented in this encounterUc [facility]10-10-2022 Miscellaneous Notes* Telephone Encounter - Viviana Ashton APRN.CNM - 12/16/2021 4:30 PM EDT I would recommend going to be seen at an Urgent care! Viviana Ashton APRN.CNM documented in this encounterUc [facility]10-07-2022 Miscellaneous Notes* Quick Notes - Elvira Guillory APRN.CNM - 12/13/2021 12:56 PM EDT JOHANNY-S: Staci Price is a 21 year old female who presents at 20w5d with KIARA:04/27/2022, by Ultrasound for a routine visit. Feeling FM. Denies headache, visual changes, chest pain, shortness of breath, vaginal bleeding, leakage of fluid, or dysuria. Feeling well, no complaints. Taking ASA. O: See flow sheet Gen: No apparent distress Abd: Gravid, nontender S=D ASSESSMENT/PLAN: 1. 20 weeks gestation of P: 1) PTL precautions reviewed and when to call 2) RTO in 4 weeks 3) Anatomy US today, awaiting official results. 4) Continue ASA 5) Continues cessation of vaping. Elvira Guillory APRN.CNM documented in this encounterUc [facility] Hospital10-07-2022 Instructions* Patient Instructions* Curt Mauricio Supervisor Type Bar And Segment - 12/13/2021 9:48 AM EDT SEQUENTIAL SCREENINGS [facility] offers sequential screenings for women who are interested in screenings for chromosomal abnormalities and certain defects during a . The sequential screen combinesultrasound and blood tests to determine the risk of chromosomal abnormalities, including Down's Syndrome (Trisomy 21) and Trisomy 18, as well as open neural tube defects including spina bifida. Ultrasound examination is performed between 11 weeks and 13 weeks gestational age. Blood tests are drawn after the ultrasound and again later in the between 15 and 21 weeks gestational age. Please let your physician know if you are interested in this testing. It will require an appointment withour swimming pool service technician. This is not an ultrasound performed by a physician in our office during a routine visit. SIGNS AND SYMPTOMS OF LABOR 1. Contractions every 10 minutes or more often 2. Clear, pink, or brownish fluid (water) leaking from vagina 3. Feeling that baby is pushing down, pressure 4. Low, dull backache 5. Cramps that feel like a period 6. Cramps with or without diarrhea If you notice any of the above symptoms, contact our office at [phone] and ask to speak with anurse. After hours, you can call doctors registry at [phone] OR call [facility] at [phone] ask to have the doctor collision mechanic paged. If you consider this an emergency, dial 9--1 or go to your nearest emergency department. NEED HELP? Are you dealing with a violent or abusive relationship? Are you a victim of rape or sexual assult? Call [facility] ([place]) 24 hour Crisis Hotline: 154.269.7338 or 897-060-3214. MANUAL Your Guide to a Healthy manual is now on-line. Visit [email or web address] to download your free copy documented in this encounterUc [facility] Hospital09-16-2022 Miscellaneous Notes* Addendum Note - Viviana Ashton APRN.CNM - 11/22/2021 3:39 PM EDTAddended by: VIVIANA ASHTON on: 11/22/2021 03:39 PM Modules accepted: Orders * Quick Notes - Viviana Ashton APRN.CNM - 11/22/2021 2:37 PM EDT S: Staci Price is a 21 year old female who presents at 17.5 weeks gestation for a routine visit. Patient denies taking antibiotic for UTI- stated was never notified. Repeat urine culture obtainedtoday. No movement to date. Nausea gone. Feeling good. Denies headache, visual changes, chestpain, shortness of breath, vaginal bleeding, leakage of fluid, or dysuria. Taking ASA. AFP blood work today. O: See flow sheet Gen: No apparent distress Abd: Gravid, non tender ASSESSMENT/PLAN: 1. 17 weeks gestation of - ICD9: V22.2, ICD10: Z3A.17 (primary diagnosis) - URINE OB DIP B/O - URINE CULTURE 2. Encounter for supervision of other normal in second trimester - ICD9: V22.1, ICD10: Z34.82 3. Asymptomatic Bacteriuria - Monurol 3 g pack- take 1 pack x 1 - resent to pharmacy due to patient not taking previously P: 1) PTL precautions reviewed and when to call 2) RTO 3 weeks for anatomy and JESSICA Ashton APRN.CNM documented in this encounterUc [facility]09-16-2022 Instructions* Patient Instructions* Marcia Hyde Ma - 11/22/2021 2:16 PM EDT SEQUENTIAL SCREENINGS The [facility] offers sequential screenings for women who are interested in screenings for chromosomal abnormalities and certain defects during a . The sequential screen combinesultrasound and blood tests to determine the risk of chromosomal abnormalities, including Down's Syndrome (Trisomy 21) and Trisomy 18, as well as open neural tube defects including spina bifida. Ultrasound examination is performed between 11 weeks and 13 weeks gestational age. Blood tests are drawn after the ultrasound and again later in the between 15 and 21 weeks gestational age. Please let your physician know if you are interested in this testing. It will require an appointment withour swimming pool service technician. This is not an ultrasound performed by a physician in our office during a routine visit. SIGNS AND SYMPTOMS OF LABOR 1. Contractions every 10 minutes or more often 2. Clear, pink, or brownish fluid (water) leaking from vagina 3. Feeling that baby is pushing down, pressure 4. Low, dull backache 5. Cramps that feel like a period 6. Cramps with or without diarrhea If you notice any of the above symptoms, contact our office at [phone] and ask to speak with anurse. After hours, you can call doctors registry at [phone] OR call [facility] at [phone] ask to have the doctor collision mechanic paged. If you consider this an emergency, dial 9-1-1 or go to your nearest emergency department. NEED HELP? Are you dealing with a violent or abusive relationship? Are you a victim of rape or sexual assult? Call [facility] ([place]) 24 hour Crisis Hotline: 543.304.3703 or 965-715-1911. MANUAL Your Guide to a Healthy manual is now on-line. Visit [email or web address] to download your free copy documented in this encounterUc [facility] Hospital08-26-2022 Miscellaneous Notes* Telephone Encounter - Theresa Aranda MD - 11/01/2021 3:29 PM EDT See result note Antibiotic sent in after discussing with pharmacy given resistance documented in this encounterUc [facility] Hospital08-22-2022 Miscellaneous Notes* Telephone Encounter - Maxine Simental MA - 10/28/2021 9:52 AM EDT Called Staci Price and identified by name and date of . Staci Price was informed of negative Non-Invasive Testing (NIPT) results for Trisomy 21, Trisomy 18 and Trisomy 13. Patient was also notified of the result of no sex chromosome aneuploidy detected. Patient wishes to know sex, which is reported as: female. Reviewed with patient Staci Price that NIPT is considered screening and not diagnostic, so thisresult greatly reduces, but does not eliminate the chance that the fetus could have trisomy 21, trisomy 18, trisomy 13 or sex chromosome aneuploidy. Staci Chapamarlon indicated understanding this information. Patient advised to follow up with AFP neural tube defect screening (blood draw) at 16-18 weeks gestation and 18-20 week detailed anatomy ultrasound. Also instructed to follow-up with Primary OB Provider. Maxine Simental MA documented in this encounterUc [facility] Hospital08-19-2022 Miscellaneous Notes* Telephone Encounter - Carmen Ornelas RN - 10/25/2021 3:51 PM EDT First PRAF submitted October 25, 2021 Carmen Ornelas RN documented in this encounterUc [facility] Hospital08-15-2022 Miscellaneous Notes* Quick Notes - Azalea Wood RN - 10/21/2021 4:50 PM EDT DISTANCE HEALTH VISIT This Team Access Model visit is a phone encounter. It required patient-provider interaction for themedical decision making as documented below. Patient is uncertain of the paternity of this baby. She states it is between 2 men. She desires paternity testing at . Patient is 13 weeks 1 day. Patient states she has been seen at the care center twice and the due date has been confirmed. Discussed late care with Viviana Ashton. Dating ultrasound ordered for tomorrow. Patienthas a history of preeclampsia with her last .Patient is complaining of nausea and occasional vomiting in . Dietary considerations discussed . Vitamin B6 recommended. Advised patientto call/come in if she is unable to keep any food or fluids down in a 24-hour period. See phone note dated 10/21/2021. Patient desires maternity 21 test. I have given her contact information for [facility] to check on insurance coverage. Patient states she has had genetic carrier screening testing in the past.Azalea Wood RN documented in this encounterUc [facility] Hospital08-15-2022 History of Present illness Narrative* Azalea Wood RN - 10/21/2021 4:49 PM EDT # 1 - Date: 2015, Sex: None, Weight: None, GA: 7w0d, Delivery: None, Apgar1: None, Apgar5: None, Living: None, Comments: no complications # 2 - Date: 11/11/18, Sex: Female, Weight: 8 lb 10 oz (3.912 kg), GA: 40w5d, Delivery: Vaginal, Spontaneous, Apgar1: 7, Apgar5: 9, Living: Living, Comments: spontaneous labor, no laceration, EBL 300cc # 3 - Date: 01/08/21, Sex: Male, Weight: 7 lb 13 oz (3.544 kg), GA: 38w5d, Delivery: Vaginal, Spontaneous, Apgar1: 8, Apgar5: 9, Living: Living, Comments: SROM - augmented with pitocin, EBL 300mL, no lacerations, Pre-eclampsia # 4 - Date: 05/27/21, Sex: None, Weight: None, GA: None, Delivery: SPONTANEOUS , Apgar1: None, Apgar5: None, Living: None, Comments: No D&C # 5 - Date: None, Sex: None, Weight: None, GA: None, Delivery: None, Apgar1: None, Apgar5: None, Living: None, Comments: None documented in this encounterUc [facility] Hospital08-15-2022 Miscellaneous Notes* Telephone Encounter - Kylee Huber RN - 10/21/2021 3:13 PM EDT Scheduled. Kylee Huber RN * Telephone Encounter - Viviana Ashton APRN.CNM - 10/21/2021 2:38 PM EDT Order signed. Please assist patient with scheduling dating ultrasound. Viviana Ashton APRN.CNM * Telephone Encounter - Azalea Wood RN - 10/21/2021 11:57 AM EDT Community Relations Manager patient. Patient has new OB appointment with Dr. Aranda on October 24. She is 13 weeks 1 day by dates and states that the care center has confirmed that. Do you want to order an ultrasound prior to her new OB visit with Dr. Aranda. There are several openings for tomorrow morning.Please advise and we will call patient back. documented in this encounterUc [facility] Hospital03-24-2022 Miscellaneous Notes* Telephone Encounter - Kimberly Ahn RN - 05/30/2021 9:47 AM EDT Patient notified and voiced understanding. Bleeding precautions reviewed. Patient will repeat bloodwork next week. Kimberly Ahn RN * Telephone Encounter - Viviana Ashton APRN.CNM - 05/30/2021 9:15 AM EDT ED records reviewed. Please have patient get follow up HCG level next week. Order placed. US showedno gestational sac, yolk sac or pole. Please discuss bleeding precautions with patient. Viviana Ashton APRN.CNM * Telephone Encounter - Kimberly Ahn RN - 05/30/2021 9:01 AM EDT Patient was seen in [facility] ER on 05/28 for miscarriage. Patient was told she was to follow up in the office in two days. ER records in care everywhere, ultrasound was done and HCG Quant was 46. Do you want patient to be seen in the office or have repeat Quant drawn? Kimberly Ahn RN documented in this encounterUc [facility] Hospital04-01-2021 History of Past illness Narrative* Problem Noted Date Resolved Date UTI (urinary tract infection) in , ante 06/07/2020 10/24/2021 Overview: 06/07/2020 Patient was seen at [facility]. She was given Rocephin IV and sent home with a Keflex prescription for suspected UTI. with care elsewhere, [facility] 07/29/2018 10/24/2021 Overview: 07/29/2018 She is 25w5d . She states she has felt movement for approxiamately 6 weeks. They are transferring care because they have moved here to live with FOB's grandmother. She has previously had care at [facility] in [place]. She signed a release of records form to obtain her OB records from them. TKRN documented as of this encounter (statuses as of 10/25/2021) [facility] History of Past illness Narrative* Problem Noted Date Resolved Date UTI (urinary tract infection) in , ante 06/07/2020 10/24/2021 Overview: 06/07/2020 Patient was seen at [facility]. She was given Rocephin IV and sent home with a Keflex prescription for suspected UTI. with care elsewhere, [facility] 07/29/2018 10/24/2021 Overview: 07/29/2018 She is 25w5d . She states she has felt movement for approxiamately 6 weeks. They are transferring care because they have moved here to live with FOB's grandmother. She has previously had care at [facility] in [place]. She signed a release of records form to obtain her OB records from them. TKRN documented as of this encounter (statuses as of 10/28/2021) [facility] History of Past illness Narrative* Problem Noted Date Resolved Date UTI (urinary tract infection) in , ante 06/07/2020 10/24/2021 Overview: 06/07/2020 Patient was seen at [facility]. She was given Rocephin IV and sent home with a Keflex prescription for suspected UTI. with care elsewhere, [facility] 07/29/2018 10/24/2021 Overview: 07/29/2018 She is 25w5d . She states she has felt movement for approxiamately 6 weeks. They are transferring care because they have moved here to live with FOB's grandmother. She has previously had care at [facility] in [place]. She signed a release of records form to obtain her OB records from them. TKRN documented as of this encounter (statuses as of 11/01/2021) [place] [address]-01-2021 History of Past illness Narrative* Problem Noted Date Resolved Date UTI (urinary tract infection) in , ante 06/07/2020 10/24/2021 Overview: 06/07/2020 Patient was seen at [facility]. She was given Rocephin IV and sent home with a Keflex prescription for suspected UTI. with care elsewhere, [facility] 07/29/2018 10/24/2021 Overview: 07/29/2018 She is 25w5d . She states she has felt movement for approxiamately 6 weeks. They are transferring care because they have moved here to live with FOB's grandmother. She has previously had care at [facility] in [place]. She signed a release of records form to obtain her OB records from them. TKRN documented as of this encounter (statuses as of 11/22/2021) [facility] History of Past illness Narrative* Problem Noted Date Resolved Date UTI (urinary tract infection) in , ante 06/07/2020 10/24/2021 Overview: 06/07/2020 Patient was seen at [facility]. She was given Rocephin IV and sent home with a Keflex prescription for suspected UTI. with care elsewhere, [facility] 07/29/2018 10/24/2021 Overview: 07/29/2018 She is 25w5d . She states she has felt movement for approxiamately 6 weeks. They are transferring care because they have moved here to live with FOB's grandmother. She has previously had care at [facility] in [place]. She signed a release of records form to obtain her OB records from them. TKRN documented as of this encounter (statuses as of 12/13/2021) [facility] of Past illness Narrative* Problem Noted Date Resolved Date UTI (urinary tract infection) in , ante 06/07/2020 10/24/2021 Overview: 06/07/2020 Patient was seen at [facility]. She was given Rocephin IV and sent home with a Keflex prescription for suspected UTI. with care elsewhere, [facility] 07/29/2018 10/24/2021 Overview: 07/29/2018 She is 25w5d . She states she has felt movement for approxiamately 6 weeks. They are transferring care because they have moved here to live with FOB's grandmother. She has previously had care at [facility] in [place]. She signed a release of records form to obtain her OB records from them. TKRN documented as of this encounter (statuses as of 12/13/2021) [facility] of Past illness Narrative* Problem Noted Date Resolved Date UTI (urinary tract infection) in , ante 06/07/2020 10/24/2021 Overview: 06/07/2020 Patient was seen at [facility]. She was given Rocephin IV and sent home with a Keflex prescription for suspected UTI. with care elsewhere, [facility] 07/29/2018 10/24/2021 Overview: 07/29/2018 She is 25w5d . She states she has felt movement for approxiamately 6 weeks. They are transferring care because they have moved here to live with FOB's grandmother. She has previously had care at [facility] in [place]. She signed a release of records form to obtain her OB records from them. TKRN documented as of this encounter (statuses as of 12/16/2021) [place] [address]-01-2021 History of Past illness Narrative* Problem Noted Date Resolved Date UTI (urinary tract infection) in , ante 06/07/2020 10/24/2021 Overview: 06/07/2020 Patient was seen at [facility]. She was given Rocephin IV and sent home with a Keflex prescription for suspected UTI. with care elsewhere, [facility] 07/29/2018 10/24/2021 Overview: 07/29/2018 She is 25w5d . She states she has felt movement for approxiamately 6 weeks. They are transferring care because they have moved here to live with FOB's grandmother. She has previously had care at [facility] in [place]. She signed a release of records form to obtain her OB records from them. TKRN documented as of this encounter (statuses as of 01/10/2022) [facility] of Past illness Narrative* Problem Noted Date Resolved Date UTI (urinary tract infection) in , ante 06/07/2020 10/24/2021 Overview: 06/07/2020 Patient was seen at [facility]. She was given Rocephin IV and sent home with a Keflex prescription for suspected UTI. with care elsewhere, [facility] 07/29/2018 10/24/2021 Overview: 07/29/2018 She is 25w5d . She states she has felt movement for approxiamately 6 weeks. They are transferring care because they have moved here to live with FOB's grandmother. She has previously had care at [facility] in [place]. She signed a release of records form to obtain her OB records from them. TKRN documented as of this encounter (statuses as of 01/27/2022) [facility] of Past illness Narrative* Problem Noted Date Resolved Date UTI (urinary tract infection) in , ante 06/07/2020 10/24/2021 Overview: 06/07/2020 Patient was seen at [facility]. She was given Rocephin IV and sent home with a Keflex prescription for suspected UTI. with care elsewhere, [facility] 07/29/2018 10/24/2021 Overview: 07/29/2018 She is 25w5d . She states she has felt movement for approxiamately 6 weeks. They are transferring care because they have moved here to live with FOB's grandmother. She has previously had care at [facility] in [place]. She signed a release of records form to obtain her OB records from them. TKRN documented as of this encounter (statuses as of 02/11/2022) [facility] of Past illness Narrative* Problem Noted Date Resolved Date UTI (urinary tract infection) in , ante 06/07/2020 10/24/2021 Overview: 06/07/2020 Patient was seen at [facility]. She was given Rocephin IV and sent home with a Keflex prescription for suspected UTI. with care elsewhere, [facility] 07/29/2018 10/24/2021 Overview: 07/29/2018 She is 25w5d . She states she has felt movement for approxiamately 6 weeks. They are transferring care because they have moved here to live with FOBalaji's grandmother. She has previously had care at [facility] in [place]. She signed a release of records form to obtain her OB records from them. TKRN documented as of this encounter (statuses as of 02/11/2022) [facility] of Past illness Narrative* Problem Noted Date Resolved Date UTI (urinary tract infection) in , ante 06/07/2020 10/24/2021 Overview: 06/07/2020 Patient was seen at [facility]. She was given Rocephin IV and sent home with a Keflex prescription for suspected UTI. with care elsewhere, [facility] 07/29/2018 10/24/2021 Overview: 07/29/2018 She is 25w5d . She states she has felt movement for approxiamately 6 weeks. They are transferring care because they have moved here to live with FOB's grandmother. She has previously had care at [facility] in [place]. She signed a release of records form to obtain her OB records from them. TKRN documented as of this encounter (statuses as of 02/13/2022) [facility] of Past illness Narrative* Problem Noted Date Resolved Date UTI (urinary tract infection) in , ante 06/07/2020 10/24/2021 Overview: 06/07/2020 Patient was seen at [facility]. She was given Rocephin IV and sent home with a Keflex prescription for suspected UTI. with care elsewhere, [facility] 07/29/2018 10/24/2021 Overview: 07/29/2018 She is 26w5d . She states she has felt movement for approxiamately 6 weeks. They are transferring care because they have moved here to live with FOB's grandmother. She has previously had care at [facility] in [place]. She signed a release of records form to obtain her OB records from them. TKRN documented as of this encounter (statuses as of 02/16/2022) [facility]04-01-2021 History of Past illness Narrative* Problem Noted Date Resolved Date UTI (urinary tract infection) in , ante 06/07/2020 10/24/2021 Overview: 06/07/2020 Patient was seen at [facility]. She was given Rocephin IV and sent home with a Keflex prescription for suspected UTI. with care elsewhere, [facility] 07/29/2018 10/24/2021 Overview: 07/29/2018 She is 26w5d . She states she has felt movement for approxiamately 6 weeks. They are transferring care because they have moved here to live with FOB's grandmother. She has previously had care at [facility] in [place]. She signed a release of records form to obtain her OB records from them. TKRN documented as of this encounter (statuses as of 02/21/2022) [facility]04-01-2021 History of Past illness Narrative* Problem Noted Date Resolved Date UTI (urinary tract infection) in , ante 06/07/2020 10/24/2021 Overview: 06/07/2020 Patient was seen at [facility]. She was given Rocephin IV and sent home with a Keflex prescription for suspected UTI. with care elsewhere, [facility] 07/29/2018 10/24/2021 Overview: 07/29/2018 She is 26w5d . She states she has felt movement for approxiamately 6 weeks. They are transferring care because they have moved here to live with FOB's grandmother. She has previously had care at [facility] in [place]. She signed a release of records form to obtain her OB records from them. TKRN documented as of this encounter (statuses as of 03/12/2022) [facility]04-01-2021 History of Past illness Narrative* Problem Noted Date Resolved Date UTI (urinary tract infection) in , ante 06/07/2020 10/24/2021 Overview: 06/07/2020 Patient was seen at [facility]. She was given Rocephin IV and sent home with a Keflex prescription for suspected UTI. with care elsewhere, [facility] 07/29/2018 10/24/2021 Overview: 07/29/2018 She is 26w5d . She states she has felt movement for approxiamately 6 weeks. They are transferring care because they have moved here to live with FOB's grandmother. She has previously had care at [facility] in [place]. She signed a release of records form to obtain her OB records from them. TKRN documented as of this encounter (statuses as of 03/12/2022) [place] [id number] History of Past illness Narrative* Problem Noted Date Resolved Date UTI (urinary tract infection) in , ante 06/07/2020 10/24/2021 Overview: 06/07/2020 Patient was seen at [facility]. She was given Rocephin IV and sent home with a Keflex prescription for suspected UTI. with care elsewhere, [facility] 07/29/2018 10/24/2021 Overview: 07/29/2018 She is 26w5d . She states she has felt movement for approxiamately 6 weeks. They are transferring care because they have moved here to live with FOB's grandmother. She has previously had care at [facility] in [place]. She signed a release of records form to obtain her OB records from them. TKRN documented as of this encounter (statuses as of 03/21/2022) [facility]04-01-2021 History of Past illness Narrative* Problem Noted Date Resolved Date UTI (urinary tract infection) in , ante 06/07/2020 10/24/2021 Overview: 06/07/2020 Patient was seen at [facility]. She was given Rocephin IV and sent home with a Keflex prescription for suspected UTI. with care elsewhere, [facility] 07/29/2018 10/24/2021 Overview: 07/29/2018 She is 26w5d . She states she has felt movement for approxiamately 6 weeks. They are transferring care because they have moved here to live with FOB's grandmother. She has previously had care at [facility] in [place]. She signed a release of records form to obtain her OB records from them. TKRN documented as of this encounter (statuses as of 03/27/2022) [facility]21 History of Past illness Narrative* Problem Noted Date Resolved Date UTI (urinary tract infection) in , ante 06/07/2020 10/24/2021 Overview: 06/07/2020 Patient was seen at [facility]. She was given Rocephin IV and sent home with a Keflex prescription for suspected UTI. with care elsewhere, [facility] 07/29/2018 10/24/2021 Overview: 07/29/2018 She is 26w5d . She states she has felt movement for approxiamately 6 weeks. They are transferring care because they have moved here to live with FOB's grandmother. She has previously had care at [facility] in [place]. She signed a release of records form to obtain her OB records from them. TKRN documented as of this encounter (statuses as of 03/31/2022) [facility]-01[facility]21 History of Past illness Narrative* Problem Noted Date Resolved Date UTI (urinary tract infection) in , ante 06/07/2020 10/24/2021 Overview: 06/07/2020 Patient was seen at [facility]. She was given Rocephin IV and sent home with a Keflex prescription for suspected UTI. with care elsewhere, [facility] 07/29/2018 10/24/2021 Overview: 07/29/2018 She is 26w5d . She states she has felt movement for approxiamately 6 weeks. They are transferring care because they have moved here to live with FOB's grandmother. She has previously had care at [facility] in [place]. She signed a release of records form to obtain her OB records from them. TKRN documented as of this encounter (statuses as of 04/07/2022) [facility]21 History of Past illness Narrative* Problem Noted Date Resolved Date UTI (urinary tract infection) in , ante 06/07/2020 10/24/2021 Overview: 06/07/2020 Patient was seen at [facility]. She was given Rocephin IV and sent home with a Keflex prescription for suspected UTI. with care elsewhere, [facility] 07/29/2018 10/24/2021 Overview: 07/29/2018 She is 26w5d . She states she has felt movement for approxiamately 6 weeks. They are transferring care because they have moved here to live with FOB's grandmother. She has previously had care at [facility] in [place]. She signed a release of records form to obtain her OB records from them. TKRN documented as of this encounter (statuses as of 04/16/2022) [facility]-01[facility]2021 History of Past illness Narrative* Problem Noted Date Resolved Date UTI (urinary tract infection) in , ante 06/07/2020 10/24/2021 Overview: 06/07/2020 Patient was seen at [facility]. She was given Rocephin IV and sent home with a Keflex prescription for suspected UTI. with care elsewhere, [facility] 07/29/2018 10/24/2021 Overview: 07/29/2018 She is 26w5d . She states she has felt movement for approxiamately 6 weeks. They are transferring care because they have moved here to live with FOB's grandmother. She has previously had care at [facility] in [place]. She signed a release of records form to obtain her OB records from them. TKRN documented as of this encounter (statuses as of 04/20/2022) [facility]04-01[facility]2021 History of Past illness Narrative* Problem Noted Date Resolved Date UTI (urinary tract infection) in , ante 06/07/2020 10/24/2021 Overview: 06/07/2020 Patient was seen at [facility]. She was given Rocephin IV and sent home with a Keflex prescription for suspected UTI. with care elsewhere, [facility] 07/29/2018 10/24/2021 Overview: 07/29/2018 She is 26w5d . She states she has felt movement for approxiamately 6 weeks. They are transferring care because they have moved here to live with FOB's grandmother. She has previously had care at [facility] in [place]. She signed a release of records form to obtain her OB records from them. TKRN documented as of this encounter (statuses as of 04/22/2022) [facility]21 History of Past illness Narrative* Problem Noted Date Resolved Date UTI (urinary tract infection) in , ante 06/07/2020 10/24/2021 Overview: 06/07/2020 Patient was seen at [facility]. She was given Rocephin IV and sent home with a Keflex prescription for suspected UTI. with care elsewhere, [facility] 07/29/2018 10/24/2021 Overview: 07/29/2018 She is 26w5d . She states she has felt movement for approxiamately 6 weeks. They are transferring care because they have moved here to live with FOB's grandmother. She has previously had care at [facility] in [place]. She signed a release of records form to obtain her OB records from them. TKRN documented as of this encounter (statuses as of 04/23/2022) [facility]21 History of Past illness Narrative* Problem Noted Date Resolved Date UTI (urinary tract infection) in , ante 06/07/2020 10/24/2021 Overview: 06/07/2020 Patient was seen at [facility]. She was given Rocephin IV and sent home with a Keflex prescription for suspected UTI. with care elsewhere, [facility] 07/29/2018 10/24/2021 Overview: 07/29/2018 She is 26w5d . She states she has felt movement for approxiamately 6 weeks. They are transferring care because they have moved here to live with FOB's grandmother. She has previously had care at [facility] in [place]. She signed a release of records form to obtain her OB records from them. TKRN documented as of this encounter (statuses as of 05/16/2022) [place] [address]-01-2021 History of Past illness Narrative* Problem Noted Date Resolved Date UTI (urinary tract infection) in , ante 06/07/2020 10/24/2021 Overview: 06/07/2020 Patient was seen at [facility]. She was given Rocephin IV and sent home with a Keflex prescription for suspected UTI. with care elsewhere, [facility] 07/29/2018 10/24/2021 Overview: 07/29/2018 She is 26w5d . She states she has felt movement for approxiamately 6 weeks. They are transferring care because they have moved here to live with FOB's grandmother. She has previously had care at [facility] in [place]. She signed a release of records form to obtain her OB records from them. TKRN documented as of this encounter (statuses as of 05/30/2022) [facility]21 History of Past illness Narrative* Problem Noted Date Diagnosed Date Resolved Date UTI (urinary tract infection ) in , antepartum 06/07/2020 10/24/2021 Overview: 06/07/2020 Patient was seen at [facility]. She was given Rocephin IV and sent home with a Keflex prescription for suspected UTI. with care elsewhere, antepartum 07/29/2018 10/24/2021 Overview: 07/29/2018 She is 25w5d . She states she has felt movement for approxiamately 6 weeks. They are transferring care because they have moved here to live with FOB's grandmother. She has previously had care at [facility] in [place]. She signed a release of records form to obtain her OB records from them. TKRN documented as of this encounter (statuses as of 01/21/2023) [facility]21 History of Past illness Narrative* Problem Noted Date Diagnosed Date Resolved Date UTI (urinary tract infection ) in , antepartum 06/07/2020 10/24/2021 Overview: 06/07/2020 Patient was seen at [facility]. She was given Rocephin IV and sent home with a Keflex prescription for suspected UTI. with care elsewhere, antepartum 07/29/2018 10/24/2021 Overview: 07/29/2018 She is 25w5d . She states she has felt movement for approxiamately 6 weeks. They are transferring care because they have moved here to live with FOB's grandmother. She has previously had care at [facility] in [place]. She signed a release of records form to obtain her OB records from them. TKRN documented as of this encounter (statuses as of 01/28/2023) [facility]-01[facility]21 History of Past illness Narrative* Problem Noted Date Diagnosed Date Resolved Date UTI (urinary tract infection ) in , antepartum 06/07/2020 10/24/2021 Overview: 06/07/2020 Patient was seen at [facility]. She was given Rocephin IV and sent home with a Keflex prescription for suspected UTI. with care elsewhere, antepartum 07/29/2018 10/24/2021 Overview: 07/29/2018 She is 25w5d . She states she has felt movement for approxiamately 6 weeks. They are transferring care because they have moved here to live with FOB's grandmother. She has previously had care at [facility] in [place]. She signed a release of records form to obtain her OB records from them. TKRN documented as of this encounter (statuses as of 01/30/2023) [facility] History of Past illness Narrative* Problem Noted Date Diagnosed Date Resolved Date UTI (urinary tract infection ) in , antepartum 06/07/2020 10/24/2021 Overview: 06/07/2020 Patient was seen at [facility]. She was given Rocephin IV and sent home with a Keflex prescription for suspected UTI. with care elsewhere, antepartum 07/29/2018 10/24/2021 Overview: 07/29/2018 She is 25w5d . She states she has felt movement for approxiamately 6 weeks. They are transferring care because they have moved here to live with FOB's grandmother. She has previously had care at [facility] in [place]. She signed a release of records form to obtain her OB records from them. TKRN documented as of this encounter (statuses as of 02/06/2023) [facility] History of Past illness Narrative* Problem Noted Date Diagnosed Date Resolved Date UTI (urinary tract infection ) in , antepartum 06/07/2020 10/24/2021 Overview: 06/07/2020 Patient was seen at [facility]. She was given Rocephin IV and sent home with a Keflex prescription for suspected UTI. with care elsewhere, antepartum 07/29/2018 10/24/2021 Overview: 07/29/2018 She is 25w5d . She states she has felt movement for approxiamately 6 weeks. They are transferring care because they have moved here to live with FOB's grandmother. She has previously had care at [facility] in [place]. She signed a release of records form to obtain her OB records from them. TKRN documented as of this encounter (statuses as of 02/09/2023) [facility]21 History of Past illness Narrative* Problem Noted Date Diagnosed Date Resolved Date UTI (urinary tract infection ) in , antepartum 06/07/2020 10/24/2021 Overview: 06/07/2020 Patient was seen at [facility]. She was given Rocephin IV and sent home with a Keflex prescription for suspected UTI. with care elsewhere, antepartum 07/29/2018 10/24/2021 Overview: 07/29/2018 She is 25w5d . She states she has felt movement for approxiamately 6 weeks. They are transferring care because they have moved here to live with FOB's grandmother. She has previously had care at [facility] in [place]. She signed a release of records form to obtain her OB records from them. TKRN documented as of this encounter (statuses as of 02/11/2023) [facility] History of Past illness Narrative* Problem Noted Date Diagnosed Date Resolved Date UTI (urinary tract infection ) in , antepartum 06/07/2020 10/24/2021 Overview: 06/07/2020 Patient was seen at [facility]. She was given Rocephin IV and sent home with a Keflex prescription for suspected UTI. with care elsewhere, antepartum 07/29/2018 10/24/2021 Overview: 07/29/2018 She is 25w5d . She states she has felt movement for approxiamately 6 weeks. They are transferring care because they have moved here to live with FOB's grandmother. She has previously had care at [facility] in [place]. She signed a release of records form to obtain her OB records from them. TKRN documented as of this encounter (statuses as of 02/11/2023) [facility] History of Past illness Narrative* Problem Noted Date Diagnosed Date Resolved Date UTI (urinary tract infection ) in , antepartum 06/07/2020 10/24/2021 Overview: 06/07/2020 Patient was seen at [facility]. She was given Rocephin IV and sent home with a Keflex prescription for suspected UTI. with care elsewhere, antepartum 07/29/2018 10/24/2021 Overview: 07/29/2018 She is 25w5d . She states she has felt movement for approxiamately 6 weeks. They are transferring care because they have moved here to live with FOB's grandmother. She has previously had care at [facility] in [place]. She signed a release of records form to obtain her OB records from them. TKRN documented as of this encounter (statuses as of 04/10/2023) [facility] History of Past illness Narrative* Problem Noted Date Diagnosed Date Resolved Date UTI (urinary tract infection ) in , antepartum 06/07/2020 10/24/2021 Overview: 06/07/2020 Patient was seen at [facility]. She was given Rocephin IV and sent home with a Keflex prescription for suspected UTI. with care elsewhere, antepartum 07/29/2018 10/24/2021 Overview: 07/29/2018 She is 25w5d . She states she has felt movement for approxiamately 6 weeks. They are transferring care because they have moved here to live with FOB's grandmother. She has previously had care at [facility] in [place]. She signed a release of records form to obtain her OB records from them. TKRN documented as of this encounter (statuses as of 05/08/2023) [facility] History of Past illness Narrative* Problem Noted Date Diagnosed Date Resolved Date UTI (urinary tract infection ) in , antepartum 06/07/2020 10/24/2021 Overview: 06/07/2020 Patient was seen at [facility]. She was given Rocephin IV and sent home with a Keflex prescription for suspected UTI. with care elsewhere, antepartum 07/29/2018 10/24/2021 Overview: 07/29/2018 She is 25w5d . She states she has felt movement for approxiamately 6 weeks. They are transferring care because they have moved here to live with FOB's grandmother. She has previously had care at [facility] in [place]. She signed a release of records form to obtain her OB records from them. TKRN documented as of this encounter (statuses as of 05/21/2023) [facility] History of Past illness Narrative* Problem Noted Date Diagnosed Date Resolved Date UTI (urinary tract infection ) in , antepartum 06/07/2020 10/24/2021 Overview: 06/07/2020 Patient was seen at [facility]. She was given Rocephin IV and sent home with a Keflex prescription for suspected UTI. with care elsewhere, antepartum 07/29/2018 10/24/2021 Overview: 07/29/2018 She is 25w5d . She states she has felt movement for approxiamately 6 weeks. They are transferring care because they have moved here to live with FOB's grandmother. She has previously had care at [facility] in [place]. She signed a release of records form to obtain her OB records from them. TKRN documented as of this encounter (statuses as of 06/08/2023) [facility] History of Past illness Narrative* Problem Noted Date Diagnosed Date Resolved Date UTI (urinary tract infection ) in , antepartum 06/07/2020 10/24/2021 Overview: 06/07/2020 Patient was seen at [facility]. She was given Rocephin IV and sent home with a Keflex prescription for suspected UTI. with care elsewhere, antepartum 07/29/2018 10/24/2021 Overview: 07/29/2018 She is 25w5d . She states she has felt movement for approxiamately 6 weeks. They are transferring care because they have moved here to live with FOB's grandmother. She has previously had care at [facility] in [place]. She signed a release of records form to obtain her OB records from them. TKRN documented as of this encounter (statuses as of 06/09/2023) [facility] History of Past illness Narrative* Problem Noted Date Diagnosed Date Resolved Date UTI (urinary tract infection ) in , antepartum 06/07/2020 10/24/2021 Overview: 06/07/2020 Patient was seen at [facility]. She was given Rocephin IV and sent home with a Keflex prescription for suspected UTI. with care elsewhere, antepartum 07/29/2018 10/24/2021 Overview: 07/29/2018 She is 25w5d . She states she has felt movement for approxiamately 6 weeks. They are transferring care because they have moved here to live with FOB's grandmother. She has previously had care at [facility] in [place]. She signed a release of records form to obtain her OB records from them. TKRN documented as of this encounter (statuses as of 06/25/2023) [facility] History of Past illness Narrative* Problem Noted Date Resolved Date Late care affecting 9 08/02/2020 Overview: 08/12/2018 Dating by LMP c/w 22 wk US. US report scanned in. SW 08/11/2018 Review of records shows care starting at 19 weeks and late care as diagnosis TKRN documented as of this encounter (statuses as of 05/30/2021) [facility] Kenton Smith [facility] June 28, 2022 4:02am Note Date/Time June 28, 2022 4:[address] [facility] Medical Records Department [address] [place] [address] Emergency Department Summary 06/28/22 MR#: [id number] Acct: [id number] Name: STACI PRICE Rep #:[id number] : 2000 22 From: Kenton Smith DO PCP: Care Physician,No Primary Status :REG ER Location: ED HPI History of Present Illness Chief Complaint: Abd Pain Narrative Narrative: Patient is a 22-year-old female who states she has had intermittent upper abdominal pain since giving roughly 3 months ago. She states she has not followed up or seen anyone secondary to this. She states that this evening she went out to dinner with her family at a [employer] restaurant. She states she did not think much of this but as she was sleeping she developed upper abdominal pain with bouts of nausea. She states symptoms were not improving at home and with concern for underlying infection she called EMS and was brought in for evaluation [facility] Medical History Asthma Preeclampsia Home Medications famotidine 20 mg tablet (Pepcid) 20 mg PO BID #60 tabs 06/28/22 [Rx Last Taken Unknown] sucralfate 1 gram tablet (Carafate) 1 g PO BID #60 tabs 06/28/22 [Rx Last Taken Unknown] Allergy/AdvReac Type Severity Reaction Status Date / Time No Known Allergies Allergy Verified 06/28/22 02:28 Social History Smoking Status: Current some day smoker tobacco type: e-cigarettes ROS ROS ED Constitutional Constitutional ED: Denies chills or fever(s) ENT ENT ED: Denies sore throat Cardiovascular Cardiovascular: Denies chest pain Respiratory/Chest Respiratory/Chest: Denies cough or dyspnea Gastrointestinal Gastrointestinal: Reports abdominal pain and nausea; Denies diarrhea or vomiting Genitourinary Genitourinary ED: Denies dysuria Musculoskeletal Musculoskeletal: Denies myalgias Integumentary Denies rash Neurologic Neurologic: Denies headache(s) Hematologic/Lymphatic Hematologic/Lymphatic: Denies easy bleeding or easy bruising EXAM Physical Exam Const Vital Signs: 06/28/22 02:25 Temperature 96.6 F L Temperature Source Temporal Pulse Rate 75 Respiratory Rate 18 Blood Pressure 112/46 L Blood Pressure Mean 68 Pulse Ox 100 Oxygen Delivery Method Room Air Positive well nourished and well developed General Appearance ED: well developed HEENT Reports moist mucous membranes HEENT Narrative: No signs of infection in the posterior pharynx no airway edema or compromise Eyes PERRL and EOMs intact bilaterally General Eye ED: Negative for scleral icterus Neck supple Resp normal respiratory effort and clear to auscultation bilaterally Cardio regular rate and regular rhythm Rate: other Other Details: Radial pulses are plus 2 out of 4 bilaterally are equal and symmetric GI non-distended GI Narrative: Abdomen is soft and nondistended with normal active bowel sounds. There is painwith palpation in the midepigastric region without voluntary guarding or rigidity. No pulsatile mass or fluid wave. Negative Tarango sign Auscultation: normoactive bowel sounds Palpation: soft Back/Spine no CVA tenderness Extremity normal to inspection Neuro oriented x3 and CN's II-XII intact bilaterally Sensorium / Orientation: alert Psych mental status grossly normal Skin no rashes or lesions noted General Skin Exam: Negative for jaundice MDM MDM MDM Narrative Medical decision making narrative: Patient presented to the ER with stable vitals and a soft nonsurgical abdomen and therefore I felt no need for emergent imaging or laboratory studies. The differential includes biliary colic colitis viral gastroenteritis ileus or gastritis. Based on the pain beginning after eating Norwegian and the fact has been recurrent for multiple months I do feel this is most likely gastritis. Patient's white count is slightly elevated at 12 but chart review reveals she istypically elevated and I do not feel there is need for imaging study based on the slight elevation as it is most likely stress response. The remainder of herlabs show no signs of acute kidney injury and a normal lipase going against pancreatitis and no signs of severe dehydration or DKA. Patient was given a GI cocktail as well as Pepcid Zofran IV fluids and reported improvement of her symptoms. On reevaluation abdomen remains soft and nonsurgical. Therefore at this time as symptoms are most consistent with recurrent gastritis but there is no signs of active hemorrhage or obstruction she can be placed on symptomatic medications and discharged home History & Record Review Discussion w/independent historian: Patient Lab Data Attestation: I reviewed the patient's lab results. Labs: Laboratory Results - last 24 hr 06/28/22 06/28/22 06/28/22 02:37 02:37 02:37 WBC 12.2 H RBC 4.50 Hgb 12.3 Hct 37.8 MCV 84.0 MCH 27.3 MCHC 32.5 RDW Std Deviation 46.3 H RDW Coeff of Gregory 15.2 H Plt Count 276 MPV 11.8 Immature Gran % (Auto) 0.300 Neut % (Auto) 46.6 L Lymph % (Auto) 38.7 Kimball % (Auto) 8.1 Eos % (Auto) 5.7 H Baso % (Auto) 0.6 Absolute Neuts (auto) 5.7 Absolute Lymphs (auto) 4.70 H Nucleated RBC % 0 Sodium 138 Potassium 3.4 L Chloride 109 H Carbon Dioxide 26.0 Anion Gap 3 L BUN 13 Creatinine 0.94 Estim Creat Clear Calc 85.19 Est GFR (MDRD) Af Amer 97 Est GFR (MDRD) Non-Af 80 BUN/Creatinine Ratio 13.9 Glucose 135 H Calcium 9.2 Total Bilirubin 0.20 Direct Bilirubin 0.13 AST 35 ALT 36 Alkaline Phosphatase 103 Total Protein 7.5 Albumin 3.7 Globulin 3.8 Lipase 43 Serum , Qual NEGATIVE Discharge Plan Triage Chief Complaint: Abd Pain ED Provider: Kenton Smith Dx/Rx/DC Orders Clinical Impression: Gastritis Instructions: ED Gastritis (Adult) Prescriptions: New famotidine [Pepcid] 20 mg tablet 20 mg PO BID Qty: 60 2RF sucralfate [Carafate] 1 gram tablet 1 g PO BID Qty: 60 1RF Primary Care Provider: Care Physician,No Primary Referrals: Jaimee Ochoa MD [Med Staff - [employer]] - Care Physician,No Primary [Primary Care Provider] - Disposition Disposition: Home, Self Care What to do if you have Problems For any increased pain, shortness of breath, bleeding, nausea or vomiting, chestpain, or any unexpected problems, contact your Primary Care Provider. Call [facility] ([phone]) or report to the closest Emergency Room. Call 911 if necessary. 06/28/22 0402 <Electronically signed by Kenton Smith DO> Cosigner Signature (if applicable): CC: No Primary Care Physician ~ Signed [facility] Work Phone: Discharge summary Author Kenton Smith [facility] Note Date/Time June 09, 2024 1:[address] [facility] Medical Records Department [address] [place] [address] Emergency Department Summary 06/09/24 MR#: [id number] Acct: [id number] Name: STACI PRICE Rep #:[id number] : 2000 24 From: Kenton Smith DO PCP: Care Physician,No Primary Status :REG ER Location: ED HPI HPI - Female History of Present Illness Chief Complaint: Vag Bld, Preg Informant: patient Narrative Narrative: Patient is a with 2 spontaneous abortions who is roughly 16 weeks . She states that this evening she took a bath and had created a bubblebath with Dove soap. She states after this she felt vaginal burning and pressure in the lower abdomen. She states she urinated and only produced a small amount. However this caused increased burning and when she wiped there was a small amount of pinkish-red blood. She states that the presence of the blood concern to her and therefore she called EMS to be brought in for evaluation. Patient states that other than the small amount of blood upon wiping there has not been persistent vaginal bleeding. Patient also denies any vaginal discharge or concern for STD. [facility] Medical History Chlamydia infection affecting Acid reflux Asthma Preeclampsia Home Medications ?Medication ?Instructions ?Recorded ?Last Taken ?Type metoclopramide HCl 5 mg tablet 5 mg PO Q6H #20 tabs Unknown Rx (Reglan) amoxicillin 500 mg capsule 500 mg PO TID 7 days #21 ca ps 06/09/24 Unknown Rx aspirin 81 mg capsule 81 mg PO DAILY 06/09/24 Unkn own History phenazopyridine 200 mg tablet 200 mg PO TID 2 days #6 tabs 06/09/24 Unknown Rx (Pyridium) Allergy/AdvReac Type Severity Reaction Status Date / Time No Known Allergies Allergy Verified 06/09/24 00:33 Family History no significant family his Social History Smoking Status: Former smoker ROS ROS ED Constitutional Constitutional ED: Denies chills or fever(s) Eyes Eyes: Denies blurry vision or change in vision ENT ENT ED: Denies sore throat Cardiovascular Cardiovascular: Denies chest pain Respiratory/Chest Respiratory/Chest: Denies cough or dyspnea Gastrointestinal Gastrointestinal: Denies abdominal pain, diarrhea, nausea or vomiting Genitourinary Genitourinary ED: Reports dysuria and other Details: Positive vaginal bleeding Musculoskeletal Musculoskeletal: Reports other Details: Negative back pain Integumentary Denies rash Neurologic Neurologic: Denies headache(s) Hematologic/Lymphatic Hematologic/Lymphatic: Denies easy bleeding or easy bruising EXAM Physical Exam Const Vital Signs: 06/09/24 00:34 06/09/24 01:00 Temperature 98.2 F Temperature Source Oral Pulse Rate 100 98 Respiratory Rate 18 16 Blood Pressure 165/85 H 127/68 H Blood Pressure Mean 111 87 Pulse Ox 96 98 Oxygen Delivery Method Room Air Room Air Positive well nourished and well developed General Appearance ED: well developed; Negative for pallor HEENT HEENT Narrative: Normocephalic atraumatic Eyes PERRL and EOMs intact bilaterally General Eye ED: Negative for scleral icterus Neck supple Neck Narrative: No nuchal rigidity or meningeal signs Resp normal respiratory effort and clear to auscultation bilaterally Cardio regular rate and regular rhythm Rate: other Other Details: Radial and carotid pulses are equal and symmetric GI non-distended GI Narrative: Abdomen is gravid with fundus consistent with reported gestational age. There is mild pain with palpation in the suprapubic region. No voluntary guarding or rigidity. Auscultation: normoactive bowel sounds Palpation: soft Narrative: Patient deferred Back/Spine no CVA tenderness Extremity full ROM Extremity Narrative: Trace pitting edema consistent with status Negative Homans' sign bilaterally Neuro oriented x3, CN's II-XII intact bilaterally and no sensory deficits noted Sensorium / Orientation: alert Motor Exam: strength 5/5 throughout Psych Mood & Affect: anxious Skin no rashes or lesions noted General Skin Exam: Negative for jaundice or pallor MDM MDM MDM Narrative Medical decision making narrative: Patient arrived to the ER no acute distress. She reported having vaginal burning/dysuria after taking a bubble bath. She states there was mild blood with wiping as well. With concern this could be threatened /spontaneousmiscarriage versus UTI versus allergic urethritis I did elect to place an ultrasound on the patient in the ER and obtain a urine sample. Ultrasound evaluation in ER shows the fetus to be within the uterus with a heartbeat of 150bpm and spontaneous motion without signs of placental abruption. The patient's urine sample does show changes consistent with UTI and therefore should be started on Pyridium and amoxicillin in the urine to be sent for culture. As she does not have back pain or fever my concern for pyelonephritis is low and I do not feel there is need for imaging or laboratory testing. The patient initially arrived hypertensive but I felt this was related to pain and anxiety. Without any type of treatment her blood pressure improved indicating this is not a preeclamptic state. Therefore at this time as her history and exam and urine sample all confirm changes consistent with UTI but she does not have urosepsis or concern for pyelonephritis she is otherwise safe for discharge History & Record Review Discussion w/independent historian: EMS personnel and Patient Lab Data Attestation: I reviewed the patient's lab results. Labs: Laboratory Results - last 24 hr 06/09/24 00:56 Urine Color Yellow Urine Clarity Cloudy Urine pH 6.5 Ur Specific [place] 1.015 Urine Protein 500 H Urine Glucose (UA) Normal Urine Ketones Negative Urine Occult Blood 250 H Urine Nitrite Positive H Urine Bilirubin Negative Urine Urobilinogen Normal Ur Leukocyte Esterase 500 H Urine RBC 10-25 SEEN Urine WBC 25-50 SEEN Ur Squamous Epith Cells 0-5 SEEN Urine Bacteria 3+ Urine Mucus 0 SEEN Discharge Plan Triage Chief Complaint: Vag Bld, Preg ED Provider: Kenton Smith Dx/Rx/DC Orders Clinical Impression: UTI (urinary tract infection), History of pre-eclampsia, Intrauterine Instructions: Urinary Tract Infections in Women Prescriptions: New amoxicillin 500 mg capsule 500 mg PO TID 7 Days Qty: 21 0RF phenazopyridine [Pyridium] 200 mg tablet 200 mg PO TID 2 Days Qty: 6 0RF No Action metoclopramide HCl [Reglan] 5 mg tablet 5 mg PO Q6H Qty: 20 0RF aspirin 81 mg capsule 81 mg PO DAILY Primary Care Provider: Care Physician,No Primary Referrals: Care Physician,No Primary [Primary Care Provider] - Activity Restrictions/Additional Instructions: Please follow-up with your LEAD CUSTODIAN for repeat evaluation. Your urine sample today showed changes consistent with infection. Take the antibiotic as directedto help resolve this. They will typically take 2 to 3 days for symptom improvement. The Pyridium you were prescribed will turn your urine a discoloredorange. This will resolve once you stop the medication. Return to the ER should you have any further concerns Print Language: Irish Disposition Disposition: Home, Self Care What to do if you have Problems For any increased pain, shortness of breath, bleeding, nausea or vomiting, chestpain, or any unexpected problems, contact your Primary Care Provider. Call [facility] ([phone]) or report to the closest Emergency Room. Call 911 if necessary. 06/09/24 0152 <Electronically signed by Kenton Smith DO> Cosigner Signature (if applicable): CC: No Primary Care Physician ~ Signed [facility] Work Phone: [email or web address] noteNo assessment information available [facility] Work Phone: Evaluation note* Diagnosis Missed menses- Primary Absence of menstruation [facility] Late care- Primary [facility]sufficient [facility] Late care affecting , antepartum- Primary Patient request for diagnostic testing Other specified examination Hx of pre-eclampsia, prior , currently Nausea/vomiting in Unspecified vomiting of , unspecified as to episode of care [facility] Diagnosis Asymptomatic bacteriuria during - Primary [facility] Diagnosis 17 weeks gestation of - Primary state, incidental Asymptomatic bacteriuria during Encounter for supervision of other normal in second trimester [facility]* Diagnosis Encounter for anatomic survey- Primary 20 weeks gestation of state, incidental [facility] Diagnosis 20 weeks gestation of - Primary state, incidental [facility]* Diagnosis Hx of pre-eclampsia, prior , currently - Primary Late care affecting , antepartum 24 weeks gestation of state, incidental [facility] Diagnosis 29 weeks gestation of - Primary state, incidental [facility]* Diagnosis 28 weeks gestation of - Primary state, incidental Need for vaccination Need for prophylactic vaccination and inoculation against unspecified single disease [facility] Diagnosis 30 weeks gestation of - Primary state, incidental Need for vaccination Need for prophylactic vaccination and inoculation against unspecified single disease [facility]* Diagnosis Supervision of high risk in third trimester- Primary Unspecified high-risk 32 weeks gestation of state, incidental [facility] Diagnosis Late care affecting , antepartum- Primary 34 weeks gestation of state, incidental [facility]* Diagnosis Onset Date Resolution Status 29 weeks gestation of acute Abdominal pain affecting acute High risk multigravida in third trimester acute 35 weeks gestation of acute contractions acute [facility] Work Phone: [employer] note* Diagnosis 26 weeks gestation of - Primary state, incidental Exposure to lead [facility]* Diagnosis 36 weeks gestation of - Primary state, incidental [facility]* Diagnosis 37 weeks gestation of - Primary state, incidental Supervision of high risk in third trimester Unspecified high-risk [facility]* Diagnosis 38 weeks gestation of - Primary state, incidental Supervision of high risk in third trimester Unspecified high-risk [facility]* Diagnosis 39 weeks gestation of - Primary state, incidental [facility]* Diagnosis Onset Date Resolution Status 29 weeks gestation of acute Abdominal pain affecting acute High risk multigravida in third trimester acute 35 weeks gestation of acute contractions acute 39 weeks gestation of acute Encounter for elective induction of labor acute Genital warts acute Vaginal delivery [facility] Work Phone: Evaluation note* Diagnosis Encounter for screening for maternal depression- Primary [facility] Diagnosis Onset Date Resolution Status 35 weeks gestation of acute contractions acute 39 weeks gestation of acute Encounter for elective induction of labor acute Genital warts acute Vaginal delivery [facility] Work Phone: Evaluation note* Diagnosis with uncertain dates in first trimester- Primary [facility]* Diagnosis Encounter for supervision of normal in multigravida- Primary 9 weeks gestation of state, incidental Nausea and vomiting in Unspecified vomiting of , unspecified as to episode of care Hx of pre-eclampsia, prior , currently Short interval between pregnancies affecting , antepartum Marijuana use during Candidiasis of vagina during Supervision of other high risk pregnancies, first trimester Chlamydial infection Unspecified chlamydial infection, in conditions classified elsewhere and of unspecified site [facility]* Diagnosis Encounter for (NT) nuchal translucency scan- Primary Other specified screening Encounter for supervision of normal in multigravida 11 weeks gestation of state, incidental [facility]* Diagnosis 11 weeks gestation of - Primary state, incidental Encounter for supervision of normal in multigravida Chlamydia trachomatis infection in mother during first trimester of [facility]* Diagnosis 23 weeks gestation of - Primary state, incidental [facility] Diagnosis 25 weeks gestation of - Primary state, incidental Encounter for supervision of normal in multigravida Supervision of high risk in second trimester Unspecified high-risk Hx of pre-eclampsia, prior , currently [facility] Diagnosis Encounter for supervision of normal in multigravida- Primary 27 weeks gestation of state, incidental [facility] Diagnosis 29 weeks gestation of - Primary state, incidental Encounter for supervision of normal in multigravida Need for vaccination Need for prophylactic vaccination and inoculation against unspecified single disease [facility]* Diagnosis Chlamydia trachomatis infection in mother during first trimester of - Primary Short interval between pregnancies affecting , antepartum Late care affecting , antepartum Abnormal chromosomal and genetic finding on screening mother Abnormal findings on screening History of marijuana use History of nicotine vaping Supervision of high risk in second trimester Unspecified high-risk [facility] Diagnosis Hx of pre-eclampsia, prior , currently - Primary Late care affecting , antepartum Short interval between pregnancies affecting , antepartum History of marijuana use History of nicotine vaping Supervision of high risk in second trimester Unspecified high-risk [facility] Diagnosis Hx of pre-eclampsia, prior , currently - Primary Supervision of high risk in third trimester Unspecified high-risk 35 weeks gestation of state, incidental [facility]* Diagnosis Hx of pre-eclampsia, prior , currently - Primary Supervision of high risk in third trimester Unspecified high-risk 36 weeks gestation of state, incidental Chlamydia trachomatis infection in mother during first trimester of [facility]* Diagnosis Hx of pre-eclampsia, prior , currently - Primary Supervision of high risk in third trimester Unspecified high-risk 37 weeks gestation of state, incidental Short interval between pregnancies affecting , antepartum Late care affecting , antepartum Chlamydia trachomatis infection in mother during first trimester of History of nicotine vaping [facility]* Diagnosis Supervision of high risk in third trimester- Primary Unspecified high-risk Hx of pre-eclampsia, prior , currently 38 weeks gestation of state, incidental documented in this encounter [facility] note* Diagnosis Encounter for supervision of normal in multigravida- Primary 9 weeks gestation of state, incidental Nausea and vomiting in Unspecified vomiting of , unspecified as to episode of care Hx of pre-eclampsia, prior , currently Short interval between pregnancies affecting , antepartum Marijuana use during Candidiasis of vagina during Supervision of other high risk pregnancies, first trimester Chlamydial infection Unspecified chlamydial infection, in conditions classified elsewhere and of unspecified site Suprapubic pressure- Primary Abdominal pain, other specified site Vaginal discharge Leukorrhea, not specified as infective documented in this encounter [facility] note* Diagnosis Encounter for supervision of normal in multigravida- Primary 9 weeks gestation of state, incidental Nausea and vomiting in Unspecified vomiting of , unspecified as to episode of care Hx of pre-eclampsia, prior , currently Short interval between pregnancies affecting , antepartum Marijuana use during Candidiasis of vagina during Supervision of other high risk pregnancies, first trimester Chlamydial infection Unspecified chlamydial infection, in conditions classified elsewhere and of unspecified site Gonorrhea- Primary Gonococcal infection (acute) of lower genitourinary tract documented in this encounter [facility] note* Diagnosis Encounter for supervision of normal in multigravida- Primary 9 weeks gestation of state, incidental Nausea and vomiting in Unspecified vomiting of , unspecified as to episode of care Hx of pre-eclampsia, prior , currently Short interval between pregnancies affecting , antepartum Marijuana use during Candidiasis of vagina during Supervision of other high risk pregnancies, first trimester Chlamydial infection Unspecified chlamydial infection, in conditions classified elsewhere and of unspecified site Gonorrhea- Primary Gonococcal infection (acute) of lower genitourinary tract [facility]* Diagnosis Encounter for supervision of normal in multigravida- Primary 9 weeks gestation of state, incidental Nausea and vomiting in Unspecified vomiting of , unspecified as to episode of care Hx of pre-eclampsia, prior , currently Short interval between pregnancies affecting , antepartum Marijuana use during Candidiasis of vagina during Supervision of other high risk pregnancies, first trimester Chlamydial infection Unspecified chlamydial infection, in conditions classified elsewhere and of unspecified site Burning with urination- Primary Dysuria Vaginal discharge Leukorrhea, not specified as infective documented in this encounter [facility] note* Diagnosis with uncertain dates, antepartum- Primary state, incidental Screening for human papillomavirus (HPV) Special screening examination for human papillomavirus (HPV) Screening for cervical cancer Screening for malignant neoplasm of the cervix Screening for STDs (sexually transmitted diseases) Screening examination for venereal disease Hx of pre-eclampsia, prior , currently Short interval between pregnancies affecting , antepartum History of shoulder dystocia in prior History of spontaneous Personal history of other genital system and obstetric disorders documented in this encounter [facility] Diagnosis Encounter for screening of mother- Primary Unspecified screening Supervision of high risk in first trimester Unspecified high-risk [facility] encounter [facility] Diagnosis Encounter for screening for malformation using ultrasound- Primary 12 weeks gestation of state, incidental documented in this encounter [facility] note* Diagnosis Supervision of high risk in second trimester- Primary Unspecified high-risk 12 weeks gestation of state, incidental Short interval between pregnancies affecting , antepartum Hx of pre-eclampsia, prior , currently History of shoulder dystocia in prior documented in this encounter [facility] note* Diagnosis Supervision of high risk in second trimester (HCC)- Primary Unspecified high-risk Hx of pre-eclampsia, prior , currently (HCC) History of shoulder dystocia in prior 16 weeks gestation of ([facility]) state, incidental Short interval between pregnancies affecting , antepartum ([facility]) [facility] Diagnosis Encounter for anatomic survey ([facility])- Primary Encounter for anatomic survey 20 weeks gestation of ([facility]) state, incidental [facility] Diagnosis Supervision of high risk in second trimester ([facility])- Primary Unspecified high-risk 20 weeks gestation of ([facility]) state, incidental Hx of pre-eclampsia, prior , currently ([facility]) History of shoulder dystocia in prior Short interval between pregnancies affecting , antepartum ([facility]) [facility] Diagnosis Supervision of high risk in second trimester ([facility])- Primary Unspecified high-risk 25 weeks gestation of ([facility]) state, incidental Screening for diabetes mellitus Hx of pre-eclampsia, prior , currently ([facility]) History of shoulder dystocia in prior Short interval between pregnancies affecting , antepartum ([facility]) [facility] Diagnosis 29 weeks gestation of ([facility])- Primary state, incidental Hx of pre-eclampsia, prior , currently ([facility]) Short interval between pregnancies affecting , antepartum ([facility]) documented [facility] Diagnosis Anemia complicating , third trimester ([facility])- Primary documented in this [facility] Diagnosis Supervision of high risk in third trimester ([facility])- Primary Unspecified high-risk 32 weeks gestation of ([facility]) state, incidental Short interval between pregnancies affecting , antepartum ([facility]) Anemia complicating , third trimester ([facility]) Hx of pre-eclampsia, prior , currently ([facility]) History of shoulder dystocia in prior [facility] Diagnosis 32 weeks gestation of ([facility])- Primary state, incidental Short interval between pregnancies affecting , antepartum ([facility]) documented [facility] this [facility] Diagnosis Supervision of high risk in third trimester ([facility])- Primary Unspecified high-risk 34 weeks gestation of ([facility]) state, incidental Short interval between pregnancies affecting , antepartum ([facility]) Anemia complicating , third trimester (HCC) Hx of pre-eclampsia, prior , currently ([facility]) History of shoulder dystocia in prior [facility]* Diagnosis macrosomia during in third trimester, single or unspecified fetus (HCC)- Primary 34 weeks gestation of (HCC) state, incidental Short interval between pregnancies affecting , antepartum (HCC) Supervision of high risk in third trimester (HCC) Unspecified high-risk Hx of pre-eclampsia, prior , currently ([facility]) History of shoulder dystocia in prior documented [facility]* Diagnosis 37 weeks gestation of (HCC)- Primary state, incidental Supervision of high risk in third trimester ([facility]) Unspecified high-risk Short interval between pregnancies affecting , antepartum ([facility]) History of shoulder dystocia in prior Uterine cramping Heartburn during in third trimester ([facility]) documented [facility] this encounter [facility] Author M Dr. Yumiko Mccarthy [facility] March 27, 2022 4:00am Note Date/Time March 27, 2022 3 :54am [facility] Medical Records Department [address] [place] [id number] OB Triage Physician Note 03/27/22 0350 MR#: [id number] Acct: [id number] Name: STACI PRICE Rep #:[id number] : 2000 21 From: Yumiko Soto MD PCP: Care Physician,No Primary Status :REG CLI Y Location: [place] [id number] HPI - General General Date of Service: 03/27/22 Chief Complaint: contractions HPI Narrative STACI PRICE, is a 21 F @ 35.4 weeks who presents c.o contraction since 2:20 am- arrived by ambulance. denies VB, LOF, reports good FM. pt reports sincearriving contractions have improved. Maternal Data Information KIARA Calculator Estimated Delivery Date Method Current WG Current Estimate 01/17/21 Manual 102w 0d PFSH PFS Medical History (Updated 03/27/22 @ 03:[address] Yumiko Webb MD) Preeclampsia Home Medications aspirin 81 mg chewable tablet 81 mg PO DAILY see provider 02/10/22 [History Last Taken 03/25/22 12:30 1 tab] Allergy/AdvReac Type Severity Reaction Status Date / Time No Known Allergies Allergy Verified 03/27/22 03:24 Social History Smoking Status: Current every day smoker tobacco type: cigarettes History Elective abortions Hx Para 1 Spontaneous abortions Hx # Term Pregnancies Ectopic pregnancies Hx # Pregnancies Multiple births # of living children Physical Exam Narrative abd: soft, gravid, non tender Const alert and oriented x3 NST FHR Rate Baby A Baseline: 135 Variability:: Moderate Accelerations:: 15 x 15 NST Reactive:: Yes FHR Category:: Category I Uterine Activity:: irregular Assessment & Plan (1) 35 weeks gestation of : (2) contractions: PLAN: Plan G5P 2 @ 35 weeks with contractions 1) urine to be sent to r/o UTI 2) signs of labor and when to return to L&D reviewed 3) Cervical exam by RN performed- closed 4) will dc home after urine results 03/27/22 0400 <Electronically signed by Yumiko Buenrostro MD> Date _ Yumiko Webb MD Cosigner Signature (if applicable): Date CC: M Dr. Yumiko Webb; No Primary Care Physician ~ Signed [facility] Work Phone: Hospital Discharge instructions Additional Instructions Keep your appointment with your LEAD CUSTODIAN as scheduledWC[facility] Work Phone: Hospital Discharge instructions Additional Instructions Please follow-up with your LEAD CUSTODIAN for repeat evaluation. Your urine sample today showed changes consistent with infection. Take the antibiotic as directed to help resolve this. They will typically take 2 to 3 days for symptom improvement. The Pyridium you were prescribed will turn your urine a discolored orange. This will resolve once you stop the medication. Return to the ER should you have any further concernsWCleveland [facility] Work Phone: Reason for referral (narrative)* Diagnostic Procedure Only (Routine) - Authorized Specialty Diagnoses / Procedures Referred By Gena t Referred To Contact [facility] Diagnoses Late care Procedures OBSTETRIC ULTRASOUND WHI US PREG UTERUS AFTER 1ST TRIMEST GESTATION Viviana Ashton APRN.CNM [address] [place] [address] [place] [id number] Referral ID Status Reason Start Date Expiration Date Visits Requested Visits Authorized [id number] Authorized Auto-Generat ed Referral 10/21/2021 10/21/2022 1 1 [facility] for referral (narrative)* Diagnostic Procedure Only (Routine) - Authorized Specialty Diagnoses / Procedures Referred By Contac t Referred To Contact [facility] Diagnoses Encounter for supervision of normal in multigravida 9 weeks gestation of Procedures NUCHAL TRANSLUCENCY WHI US NUCHAL TRANSLUCENCY GESTATION Elvira Guillory APRN.CNM [address] [place] [address] [address] Referral ID Status Reason Start Date Expiration Date Visits Requested Visits Authorized [id number] Authorized Auto-Generat ed Referral 3 01/28/2024 1 1 * Diagnostic Procedure Only (Routine) - Authorized Specialty Diagnoses / Procedures Referred By Contgustavo t Referred To Contact [facility] Diagnoses Encounter for supervision of normal in multigravida 9 weeks gestation of Procedures OBSTETRIC ULTRASOUND WHI US PREG UTERUS AFTER 1ST TRIMEST GESTATION Elvira Guillory APRN.CNM [address] [place] [address] [address] Referral ID Status Reason Start Date Expiration Date Visits Requested Visits Authorized [id number] Authorized Auto-Generat ed Referral 01/28/2024 1 1 [facility] Diagnostic Procedure Only (Routine) - Authorized Specialty Diagnoses / Procedures Referred By Contac t Referred To Contact [facility] Diagnoses with uncertain dates, antepartum Procedures OBSTETRIC ULTRASOUND WHI US PREG UTERUS AFTER 1ST TRIMEST 1 GESTATION Elvira Guillory APRN.CNM [address] [place] [address] [address] Referral ID Status Reason Start Date Expiration Date Visits Requested Visits Authorized [id number] Authorized Auto-Generat ed Referral 04/11/2024 04/11/2025 1 1 * Diagnostic Procedure Only (Routine) - Authorized Specialty Diagnoses / Procedures Referred By Contac t Referred To Contact [facility] Diagnoses with uncertain dates, antepartum Procedures OBSTETRIC ULTRASOUND WHI US PREG UTERUS AFTER 1ST TRIMEST GESTATION Elvira Guillory APRN.CNM [address] [place] [address] [address] Referral ID Status Reason Start Date Expiration Date Visits Requested Visits Authorized [id number] Authorized Auto-Generat ed Referral 04/11/2024 04/11/2025 1 1 [facility]No reason for referral information availableWC[facility] Work Phone: Summary Purpose Family History No Family History Records FoundNo Family History Records FoundNo Family History Records FoundNo Family History Records Found Advance Directives Advance Directive Response Recorded Date/ Time Living Will No May 28, 2021 1:40pm Power of Editing Intern No May 28 1:40pm Advance Directive Response Recorded Date/ Time Living Will No May 28, 2021 12:40pm Power of Editing Intern No May 28 12:40pm Advance Directive Response Recorded Date/ Time Living Will No April 22 2 023 8:04am Power of Editing Intern No April 22, 2022 8:04am Advance Directive Response Recorded Date/ Time Living Will No May 27, 2022 1:54pm Power of Editing Intern No May 27 1:54pm Advance Directive Response Recorded Date/ Time Living Will No June 28, 2022 2:27am Power of Editing Intern No June 28 2:27am Advance Directive Response Recorded Date/ Time Living Will No January 25, 2 023 11:54pm Power of Editing Intern No January 25, 2023 11:54pm Advance Directive Response Recorded Date/ Time Living Will No February 04, 2 023 5:49pm Power of Editing Intern No February 04, 2023 5:49pm Advance Directive Response Recorded Date/ Time Living Will No April 26, 2 024 6:45pm Power of Editing Intern No April 26, 2023 6:45pm Advance Directive Response Recorded Date/ Time Living Will No April 26, 2 024 7:45pm Power of Editing Intern No April 26, 2023 7:45pm Advance Directive Response Recorded Date/ Time Living Will No April 30 2 025 8:04pm Do you have a Healthcare Power of Editing Intern? No April 30, 2024 8:04pm Living Will No June 09, 2024 12:34am Do you have a Healthcare Power of Editing Intern? No June 09, 2024 12:34am Chief Complaint and Reason for Visit Chief Complaint VAGINAL BLEEDING Chief Complaint ABDOMINAL PAIN Chief Complaint ABDOMINAL PAIN RULE OUT LABOR Reason for Visit 29 weeks gestation o f Abdominal pain affecting High risk multigravida in third trimester 35 weeks gestation of contractions Chief Complaint ABDOMINAL PAIN RULE OUT LABOR VAG DELIVERY Reason for Visit 29 weeks gestation o f Abdominal pain affecting High risk multigravida in third trimester 35 weeks gestation of contractions 39 weeks gestation of Encounter for elective induction of labor Genital warts Vaginal delivery Chief Complaint ABDOMINAL PAIN RULE OUT LABOR VAG DELIVERY CHEST PAIN Reason for Visit 29 weeks gestation o f Abdominal pain affecting High risk multigravida in third trimester 35 weeks gestation of contractions 39 weeks gestation of Encounter for elective induction of labor Genital warts Vaginal delivery Chief Complaint RULE OUT LABOR VAG DELIVERY CHEST PAIN ABDOMINAL PAIN Reason for Visit 35 weeks gestation o f contractions 39 weeks gestation of Encounter for elective induction of labor Genital warts Vaginal delivery Chief Complaint abd pain DEHYDRATION? Chief Complaint abd pain DEHYDRATION? nausea,vomting Chief Complaint DEHYDRATION? nausea,vomting nausea/vomiting Chief Complaint nausea/vomiting ELEVATED BLOOD PRESSURE Chief Complaint Admit Date N/V April 30, 2024 6:45pm VAG BLEED June 09, 2024 12:3 2am Health Concerns Problem Noted Date OB Reminders 10/23/2021 Problem Noted Date OB Reminders 10/23/2021 Problem Noted Date OB Reminders 10/23/2021 Problem Noted Date OB Reminders 10/23/2021 Problem Noted Date OB Reminders 10/23/2021 Problem Noted Date OB Reminders 10/23/2021 Problem Noted Date OB Reminders 10/23/2021 Problem Noted Date OB Reminders 10/23/2021 Problem Noted Date OB Reminders 10/23/2021 Problem Noted Date OB Reminders 10/23/2021 Problem Noted Date OB Reminders 10/23/2021 Infection Onset Date Last Indicated Resolved Time COVID-19 Rule-Out 02/15/2022 02/15/2022 02/16/2022 4:43 AM EST Problem Noted Date OB Reminders 10/23/2021 Problem Noted Date OB Reminders 10/23/2021 Problem Noted Date OB Reminders 10/23/2021 Problem Noted Date Diagnosed Date [facility] - [facility] 01/28/2023 [place] - [place] 01/28/2023 Problem Noted Date Diagnosed Date [facility] - [facility] 01/28/2023 [place] - [place] 01/28/2023 Problem Noted Date Diagnosed Date [facility] - [facility] 01/28/2023 [place] - [place] 01/28/2023 Problem Noted Date Diagnosed Date [facility] - [facility] 01/28/2023 Education - [place] 01/28/2023 Problem Noted Date Diagnosed Date [facility] - [facility] 01/28/2023 Education - [place] 01/28/2023 Problem Noted Date Diagnosed Date [facility] - [facility] 01/28/2023 Education - [place] 01/28/2023 Problem Noted Date Diagnosed Date [facility] - [facility] 01/28/2023 Education - [place] 01/28/2023 Active Problems Noted Date Diagnosed Date [facility] - [facility] 01/28/2023 [place] - [place] 01/28/2023 Active Problems Noted Date Diagnosed Date [facility] - [facility] 01/28/2023 Education - [place] 01/28/2023 Active Problems Noted Date Diagnosed Date [facility] - [facility] 01/28/2023 [place] - [place] 01/28/2023 Active Problems Noted Date Diagnosed Date [facility] - [facility] 01/28/2023 [place] - [place] 01/28/2023 Reason for Referral Specialty Diagnoses / Procedures Referred By Contac t Referred To Contact Diagnoses Asymptomatic bacteriuria during Theresa Aranda MD [address] [place] [address] Referral ID Status Reason Start Date Expiration Date V isits Requested Visits Authorized [id number] Pending Review 1 1 Specialty Diagnoses / Procedures Referred By Contac t Referred To Contact Diagnoses Asymptomatic bacteriuria during Viviana Ashton APRN.[facility] [address] [place] [address] Referral ID Status Reason Start Date Expiration Date V isits Requested Visits Authorized [id number] Pending Review 1 1 Additional Source Comments INFORMATION SOURCE (unrecogn ized section and content) DATE CREATED AUTHOR 07/14/2018 [facility] DATE CREATED AUTHOR AUTHOR'S ORGANIZ ATION 07/15/2018 [facility] DATE CREATED AUTHOR AUTHOR'S ORGANIZ ATION 06/15/2024 [facility] DATE CREATED AUTHOR AUTHOR'S ORGANIZ ATION 11/05/2024 [facility] Goals (unrecognized section and content) Goals may be documented in a n alternate sectionGoals may be documented in an alternate sectionGoals may be documented in an alternate sectionGoals may be documented in an alternate sectionGoals may be documented in an alternate sectionGoals may be documented in an alternate sectionGoals may be documented in an alternate sectionGoals may be documented in an alternate section Source Comments (unrecognize d section and content) In the event this informatio n is protected by the Federal Confidentiality of Alcohol and Drug Abuse Patient Records regulations: The Federal rules restrict any use of the information to criminally investigate or prosecute any alcohol or drug abuse patient.[facility] the event this information is protected by the Federal Confidentiality of Alcohol and Drug Abuse Patient Records regulations: The Federal rules restrict any use of the information to criminally investigate or prosecute any alcohol or drug abuse patient.[facility] the event this information is protected by the Federal Confidentiality of Alcohol and Drug Abuse Patient Records regulations: The Federal rules restrict any use of the information to criminally investigate or prosecute any alcohol or drug abuse patient.[facility] the event this information is protected by the Federal Confidentiality of Alcohol and Drug Abuse Patient Records regulations: The Federal rules restrict any use of the information to criminally investigate or prosecute any alcohol or drug abuse patient.[facility] the event this information is protected by the Federal Confidentiality of Alcohol and Drug Abuse Patient Records regulations: The Federal rules restrict any use of the information to criminally investigate or prosecute any alcohol or drug abuse patient.[facility] the event this information is protected by the Federal Confidentiality of Alcohol and Drug Abuse Patient Records regulations: The Federal rules restrict any use of the information to criminally investigate or prosecute any alcohol or drug abuse patient.[facility] the event this information is protected by the Federal Confidentiality of Alcohol and Drug Abuse Patient Records regulations: The Federal rules restrict any use of the information to criminally investigate or prosecute any alcohol or drug abuse patient.[facility] the event this information is protected by the Federal Confidentiality of Alcohol and Drug Abuse Patient Records regulations: The Federal rules restrict any use of the information to criminally investigate or prosecute any alcohol or drug abuse patient.[facility] the event this information is protected by the Federal Confidentiality of Alcohol and Drug Abuse Patient Records regulations: The Federal rules restrict any use of the information to criminally investigate or prosecute any alcohol or drug abuse patient.[facility] the event this information is protected by the Federal Confidentiality of Alcohol and Drug Abuse Patient Records regulations: The Federal rules restrict any use of the information to criminally investigate or prosecute any alcohol or drug abuse patient.[facility] the event this information is protected by the Federal Confidentiality of Alcohol and Drug Abuse Patient Records regulations: The Federal rules restrict any use of the information to criminally investigate or prosecute any alcohol or drug abuse patient.[facility] the event this information is protected by the Federal Confidentiality of Alcohol and Drug Abuse Patient Records regulations: The Federal rules restrict any use of the information to criminally investigate or prosecute any alcohol or drug abuse patient.[facility] the event this information is protected by the Federal Confidentiality of Alcohol and Drug Abuse Patient Records regulations: The Federal rules restrict any use of the information to criminally investigate or prosecute any alcohol or drug abuse patient.[facility] the event this information is protected by the Federal Confidentiality of Alcohol and Drug Abuse Patient Records regulations: The Federal rules restrict any use of the information to criminally investigate or prosecute any alcohol or drug abuse patient.[facility]In the event this information is protected by the Federal Confidentiality of Alcohol and Drug Abuse Patient Records regulations: The Federal rules restrict any use of the information to criminally investigate or prosecute any alcohol or drug abuse patient.[facility] the event this information is protected by the Federal Confidentiality of Alcohol and Drug Abuse Patient Records regulations: The Federal rules restrict any use of the information to criminally investigate or prosecute any alcohol or drug abuse patient.[facility] the event this information is protected by the Federal Confidentiality of Alcohol and Drug Abuse Patient Records regulations: The Federal rules restrict any use of the information to criminally investigate or prosecute any alcohol or drug abuse patient.[facility]In the event this information is protected by the Federal Confidentiality of Alcohol and Drug Abuse Patient Records regulations: The Federal rules restrict any use of the information to criminally investigate or prosecute any alcohol or drug abuse patient.[facility] the event this information is protected by the Federal Confidentiality of Alcohol and Drug Abuse Patient Records regulations: The Federal rules restrict any use of the information to criminally investigate or prosecute any alcohol or drug abuse patient.[facility]In the event this information is protected by the Federal Confidentiality of Alcohol and Drug Abuse Patient Records regulations: The Federal rules restrict any use of the information to criminally investigate or prosecute any alcohol or drug abuse patient.[facility]In the event this information is protected by the Federal Confidentiality of Alcohol and Drug Abuse Patient Records regulations: The Federal rules restrict any use of the information to criminally investigate or prosecute any alcohol or drug abuse patient.[facility]In the event this information is protected by the Federal Confidentiality of Alcohol and Drug Abuse Patient Records regulations: The Federal rules restrict any use of the information to criminally investigate or prosecute any alcohol or drug abuse patient.[facility] the event this information is protected by the Federal Confidentiality of Alcohol and Drug Abuse Patient Records regulations: The Federal rules restrict any use of the information to criminally investigate or prosecute any alcohol or drug abuse patient.[facility] the event this information is protected by the Federal Confidentiality of Alcohol and Drug Abuse Patient Records regulations: The Federal rules restrict any use of the information to criminally investigate or prosecute any alcohol or drug abuse patient.[facility] HospitalIn the event this information is protected by the Federal Confidentiality of Alcohol and Drug Abuse Patient Records regulations: The Federal rules restrict any use of the information to criminally investigate or prosecute any alcohol or drug abuse patient.[facility] HospitalIn the event this information is protected by the Federal Confidentiality of Alcohol and Drug Abuse Patient Records regulations: The Federal rules restrict any use of the information to criminally investigate or prosecute any alcohol or drug abuse patient.[facility] HospitalIn the event this information is protected by the Federal Confidentiality of Alcohol and Drug Abuse Patient Records regulations: The Federal rules restrict any use of the information to criminally investigate or prosecute any alcohol or drug abuse patient.[facility] HospitalIn the event this information is protected by the Federal Confidentiality of Alcohol and Drug Abuse Patient Records regulations: The Federal rules restrict any use of the information to criminally investigate or prosecute any alcohol or drug abuse patient.[facility] HospitalIn the event this information is protected by the Federal Confidentiality of Alcohol and Drug Abuse Patient Records regulations: The Federal rules restrict any use of the information to criminally investigate or prosecute any alcohol or drug abuse patient.[facility] HospitalIn the event this information is protected by the Federal Confidentiality of Alcohol and Drug Abuse Patient Records regulations: The Federal rules restrict any use of the information to criminally investigate or prosecute any alcohol or drug abuse patient.[facility] HospitalIn the event this information is protected by the Federal Confidentiality of Alcohol and Drug Abuse Patient Records regulations: The Federal rules restrict any use of the information to criminally investigate or prosecute any alcohol or drug abuse patient.[facility] HospitalIn the event this information is protected by the Federal Confidentiality of Alcohol and Drug Abuse Patient Records regulations: The Federal rules restrict any use of the information to criminally investigate or prosecute any alcohol or drug abuse patient.[facility] HospitalIn the event this information is protected by the Federal Confidentiality of Alcohol and Drug Abuse Patient Records regulations: The Federal rules restrict any use of the information to criminally investigate or prosecute any alcohol or drug abuse patient.[facility] HospitalIn the event this information is protected by the Federal Confidentiality of Alcohol and Drug Abuse Patient Records regulations: The Federal rules restrict any use of the information to criminally investigate or prosecute any alcohol or drug abuse patient.[facility] HospitalIn the event this information is protected by the Federal Confidentiality of Alcohol and Drug Abuse Patient Records regulations: The Federal rules restrict any use of the information to criminally investigate or prosecute any alcohol or drug abuse patient.[facility] HospitalIn the event this information is protected by the Federal Confidentiality of Alcohol and Drug Abuse Patient Records regulations: The Federal rules restrict any use of the information to criminally investigate or prosecute any alcohol or drug abuse patient.[facility] HospitalIn the event this information is protected by the Federal Confidentiality of Alcohol and Drug Abuse Patient Records regulations: The Federal rules restrict any use of the information to criminally investigate or prosecute any alcohol or drug abuse patient.[facility] HospitalIn the event this information is protected by the Federal Confidentiality of Alcohol and Drug Abuse Patient Records regulations: The Federal rules restrict any use of the information to criminally investigate or prosecute any alcohol or drug abuse patient.[facility] HospitalIn the event this information is protected by the Federal Confidentiality of Alcohol and Drug Abuse Patient Records regulations: The Federal rules restrict any use of the information to criminally investigate or prosecute any alcohol or drug abuse patient.[facility] HospitalIn the event this information is protected by the Federal Confidentiality of Alcohol and Drug Abuse Patient Records regulations: The Federal rules restrict any use of the information to criminally investigate or prosecute any alcohol or drug abuse patient.[facility] HospitalIn the event this information is protected by the Federal Confidentiality of Alcohol and Drug Abuse Patient Records regulations: The Federal rules restrict any use of the information to criminally investigate or prosecute any alcohol or drug abuse patient.[facility] HospitalIn the event this information is protected by the Federal Confidentiality of Alcohol and Drug Abuse Patient Records regulations: The Federal rules restrict any use of the information to criminally investigate or prosecute any alcohol or drug abuse patient.[facility] HospitalIn the event this information is protected by the Federal Confidentiality of Alcohol and Drug Abuse Patient Records regulations: The Federal rules restrict any use of the information to criminally investigate or prosecute any alcohol or drug abuse patient.[facility] HospitalIn the event this information is protected by the Federal Confidentiality of Alcohol and Drug Abuse Patient Records regulations: The Federal rules restrict any use of the information to criminally investigate or prosecute any alcohol or drug abuse patient.[facility] HospitalIn the event this information is protected by the Federal Confidentiality of Alcohol and Drug Abuse Patient Records regulations: The Federal rules restrict any use of the information to criminally investigate or prosecute any alcohol or drug abuse patient.[facility] HospitalIn the event this information is protected by the Federal Confidentiality of Alcohol and Drug Abuse Patient Records regulations: The Federal rules restrict any use of the information to criminally investigate or prosecute any alcohol or drug abuse patient.[facility] HospitalIn the event this information is protected by the Federal Confidentiality of Alcohol and Drug Abuse Patient Records regulations: The Federal rules restrict any use of the information to criminally investigate or prosecute any alcohol or drug abuse patient.[facility] HospitalIn the event this information is protected by the Federal Confidentiality of Alcohol and Drug Abuse Patient Records regulations: The Federal rules restrict any use of the information to criminally investigate or prosecute any alcohol or drug abuse patient.[facility] HospitalIn the event this information is protected by the Federal Confidentiality of Alcohol and Drug Abuse Patient Records regulations: The Federal rules restrict any use of the information to criminally investigate or prosecute any alcohol or drug abuse patient.[facility] HospitalIn the event this information is protected by the Federal Confidentiality of Alcohol and Drug Abuse Patient Records regulations: The Federal rules restrict any use of the information to criminally investigate or prosecute any alcohol or drug abuse patient.[facility] HospitalIn the event this information is protected by the Federal Confidentiality of Alcohol and Drug Abuse Patient Records regulations: The Federal rules restrict any use of the information to criminally investigate or prosecute any alcohol or drug abuse patient.[facility] HospitalIn the event this information is protected by the Federal Confidentiality of Alcohol and Drug Abuse Patient Records regulations: The Federal rules restrict any use of the information to criminally investigate or prosecute any alcohol or drug abuse patient.[facility] HospitalIn the event this information is protected by the Federal Confidentiality of Alcohol and Drug Abuse Patient Records regulations: The Federal rules restrict any use of the information to criminally investigate or prosecute any alcohol or drug abuse patient.[facility] HospitalIn the event this information is protected by the Federal Confidentiality of Alcohol and Drug Abuse Patient Records regulations: The Federal rules restrict any use of the information to criminally investigate or prosecute any alcohol or drug abuse patient.[facility] HospitalIn the event this information is protected by the Federal Confidentiality of Alcohol and Drug Abuse Patient Records regulations: The Federal rules restrict any use of the information to criminally investigate or prosecute any alcohol or drug abuse patient.[facility] HospitalIn the event this information is protected by the Federal Confidentiality of Alcohol and Drug Abuse Patient Records regulations: The Federal rules restrict any use of the information to criminally investigate or prosecute any alcohol or drug abuse patient.[facility] HospitalIn the event this information is protected by the Federal Confidentiality of Alcohol and Drug Abuse Patient Records regulations: The Federal rules restrict any use of the information to criminally investigate or prosecute any alcohol or drug abuse patient.[facility] HospitalIn the event this information is protected by the Federal Confidentiality of Alcohol and Drug Abuse Patient Records regulations: The Federal rules restrict any use of the information to criminally investigate or prosecute any alcohol or drug abuse patient.[facility] HospitalIn the event this information is protected by the Federal Confidentiality of Alcohol and Drug Abuse Patient Records regulations: The Federal rules restrict any use of the information to criminally investigate or prosecute any alcohol or drug abuse patient.[facility] HospitalIn the event this information is protected by the Federal Confidentiality of Alcohol and Drug Abuse Patient Records regulations: The Federal rules restrict any use of the information to criminally investigate or prosecute any alcohol or drug abuse patient.[facility] HospitalIn the event this information is protected by the Federal Confidentiality of Alcohol and Drug Abuse Patient Records regulations: The Federal rules restrict any use of the information to criminally investigate or prosecute any alcohol or drug abuse patient.[facility] HospitalIn the event this information is protected by the Federal Confidentiality of Alcohol and Drug Abuse Patient Records regulations: The Federal rules restrict any use of the information to criminally investigate or prosecute any alcohol or drug abuse patient.[facility] HospitalIn the event this information is protected by the Federal Confidentiality of Alcohol and Drug Abuse Patient Records regulations: The Federal rules restrict any use of the information to criminally investigate or prosecute any alcohol or drug abuse patient.[facility] HospitalIn the event this information is protected by the Federal Confidentiality of Alcohol and Drug Abuse Patient Records regulations: The Federal rules restrict any use of the information to criminally investigate or prosecute any alcohol or drug abuse patient.[facility] HospitalIn the event this information is protected by the Federal Confidentiality of Alcohol and Drug Abuse Patient Records regulations: The Federal rules restrict any use of the information to criminally investigate or prosecute any alcohol or drug abuse patient.[facility] HospitalIn the event this information is protected by the Federal Confidentiality of Alcohol and Drug Abuse Patient Records regulations: The Federal rules restrict any use of the information to criminally investigate or prosecute any alcohol or drug abuse patient.[facility] HospitalIn the event this information is protected by the Federal Confidentiality of Alcohol and Drug Abuse Patient Records regulations: The Federal rules restrict any use of the information to criminally investigate or prosecute any alcohol or drug abuse patient.[facility] HospitalIn the event this information is protected by the Federal Confidentiality of Alcohol and Drug Abuse Patient Records regulations: The Federal rules restrict any use of the information to criminally investigate or prosecute any alcohol or drug abuse patient.[facility] HospitalIn the event this information is protected by the Federal Confidentiality of Alcohol and Drug Abuse Patient Records regulations: The Federal rules restrict any use of the information to criminally investigate or prosecute any alcohol or drug abuse patient.[facility] HospitalIn the event this information is protected by the Federal Confidentiality of Alcohol and Drug Abuse Patient Records regulations: The Federal rules restrict any use of the information to criminally investigate or prosecute any alcohol or drug abuse patient.[facility] HospitalIn the event this information is protected by the Federal Confidentiality of Alcohol and Drug Abuse Patient Records regulations: The Federal rules restrict any use of the information to criminally investigate or prosecute any alcohol or drug abuse patient.[facility] HospitalIn the event this information is protected by the Federal Confidentiality of Alcohol and Drug Abuse Patient Records regulations: The Federal rules restrict any use of the information to criminally investigate or prosecute any alcohol or drug abuse patient.[facility] HospitalIn the event this information is protected by the Federal Confidentiality of Alcohol and Drug Abuse Patient Records regulations: The Federal rules restrict any use of the information to criminally investigate or prosecute any alcohol or drug abuse patient.[facility] HospitalIn the event this information is protected by the Federal Confidentiality of Alcohol and Drug Abuse Patient Records regulations: The Federal rules restrict any use of the information to criminally investigate or prosecute any alcohol or drug abuse patient.[facility] HospitalIn the event this information is protected by the Federal Confidentiality of Alcohol and Drug Abuse Patient Records regulations: The Federal rules restrict any use of the information to criminally investigate or prosecute any alcohol or drug abuse patient.[facility] HospitalIn the event this information is protected by the Federal Confidentiality of Alcohol and Drug Abuse Patient Records regulations: The Federal rules restrict any use of the information to criminally investigate or prosecute any alcohol or drug abuse patient.[facility] HospitalIn the event this information is protected by the Federal Confidentiality of Alcohol and Drug Abuse Patient Records regulations: The Federal rules restrict any use of the information to criminally investigate or prosecute any alcohol or drug abuse patient.[facility] HospitalIn the event this information is protected by the Federal Confidentiality of Alcohol and Drug Abuse Patient Records regulations: The Federal rules restrict any use of the information to criminally investigate or prosecute any alcohol or drug abuse patient.[facility] HospitalIn the event this information is protected by the Federal Confidentiality of Alcohol and Drug Abuse Patient Records regulations: The Federal rules restrict any use of the information to criminally investigate or prosecute any alcohol or drug abuse patient.[facility] HospitalIn the event this information is protected by the Federal Confidentiality of Alcohol and Drug Abuse Patient Records regulations: The Federal rules restrict any use of the information to criminally investigate or prosecute any alcohol or drug abuse patient.[facility] HospitalIn the event this information is protected by the Federal Confidentiality of Alcohol and Drug Abuse Patient Records regulations: The Federal rules restrict any use of the information to criminally investigate or prosecute any alcohol or drug abuse patient.[facility] HospitalIn the event this information is protected by the Federal Confidentiality of Alcohol and Drug Abuse Patient Records regulations: The Federal rules restrict any use of the information to criminally investigate or prosecute any alcohol or drug abuse patient.[facility]In the event this information is protected by the Federal Confidentiality of Alcohol and Drug Abuse Patient Records regulations: The Federal rules restrict any use of the information to criminally investigate or prosecute any alcohol or drug abuse patient.[facility] HospitalIn the event this information is protected by the Federal Confidentiality of Alcohol and Drug Abuse Patient Records regulations: The Federal rules restrict any use of the information to criminally investigate or prosecute any alcohol or drug abuse patient.[facility] Reason for Visit (unrecogniz ed section and content) Reason Comments Miscarriage Reason Comments late care Reason Comments Care Reason Comments 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 Diagnoses Encounter for supervision of other normal in second trimester 13 weeks gestation of Procedures OBSTETRIC ULTRASOUND WHI US PREG UTERUS AFTER 1ST TRIMEST 1/ GESTATION Theresa Aranda MD [address] [place] [address] [facility] [address] [place] [address] Referral ID Status Reason Start Date Expiration Date V isits Requested Visits Authorized [id number] Closed Auto-Generate d Referral 10/24/2021 10/24/2022 1 1 Reason Onset Date Comments Care 12/13/2021 Reason Onset Date Comments Care 01/10/2022 Reason Onset Date Comments Care 02/11/2022 Reason Onset Date Comments Care 02/07/2022 Reason Comments Results Reason Onset Date Comments Care 02/21/2022 Reason Comments OB PAIN Reason Onset Date Comments Care 03/06/2022 Reason Onset Date Comments Care 03/21/2022 Reason Onset Date Comments Care 03/31/2022 Reason Onset Date Comments Care 04/07/2022 Reason Onset Date Comments Care 04/14/2022 Reason Onset Date Comments Care Care 04/21/2022 Reason Comments Ob Delivery Note Reason Comments Question (OB Question) Reason Comments Care Specialty Diagnoses / Procedures Referred By Contac t Referred To Contact [facility] Diagnoses Encounter for supervision of normal in multigravida 9 weeks gestation of Procedures NUCHAL TRANSLUCENCY WHI US NUCHAL TRANSLUCENCY 1ST GESTATION Elvira Guillory APRN.[employer] [address] [place] [address] [facility] [address] [place] [address] Referral ID Status Reason Start Date Expiration Date V isits Requested Visits Authorized [id number] Closed Auto-Generate d Referral 01/28/2023 01/28/2024 1 1 Reason Onset Date Comments Care 02/11/2023 Reason Comments PRAF Reason Onset Date Comments Care 06/03/2023 Reason Onset Date Comments Care 06/17/2023 Reason Onset Date Comments Care 07/29/2023 Reason Onset Date Comments Care 08/04/2023 Reason Onset Date Comments Care 08/12/2023 Reason Onset Date Comments Care 08/20/2023 Reason Comments Pelvic Pain discharge x 2 days, std check Reason Comments injection for STD Injection for STD Reason Comments Urinary Problem Burning with urinati on x 1 dayStd testing Reason Comments Results Orders Reason Comments Initial OB Visit Reason Comments Question (OB Question) Specialty Diagnoses / Procedures Referred By Contac t Referred To Contact [facility] Diagnoses with uncertain dates, antepartum Procedures OBSTETRIC ULTRASOUND WHI US PREG UTERUS AFTER 1ST TRIMEST GESTATION Elvira Guillory APRN.CNM [address] [place] [address] Phone: tel: fax:[phone] [facility] [address] [place] [address] Referral ID Status Reason Start Date Expiration Date V isits Requested Visits Authorized [id number] Closed Auto-Generate d Referral 04/11/2024 04/11/2025 1 1 Reason Onset Date Comments Care 05/17/2024 Reason Onset Date Comments Refill Request 06/10/2024 Reason Onset Date Comments Care 06/13/2024 Specialty Diagnoses / Procedures Referred By Contac t Referred To Contact [facility] Diagnoses with uncertain dates, antepartum (HCC) Procedures OBSTETRIC ULTRASOUND WHI US PREG UTERUS AFTER 1ST TRIMEST GESTATION Elvira Guillory APRN.NINO [address] [place] [address] Phone: tel: fax:[phone] [facility] [address] [place] [address] Referral ID Status Reason Start Date Expiration Date V isits Requested Visits Authorized [id number] Closed Auto-Generate d Referral 04/11/2024 04/11/2025 1 1 Reason Onset Date Comments Care 08/15/2024 Reason Onset Date Comments Care 09/07/2024 Reason Onset Date Comments Refill Request 09/07/2024 Reason Onset Date Comments Care 09/28/2024 Reason Comments Appointment Nuchal US Reason Onset Date Comments Care 10/03/2024 Reason Onset Date Comments Care 10/18/2024 Specialty Diagnoses / Procedures Referred By Contac t Referred To Contact [facility] Diagnoses 32 weeks gestation of ([facility]) Short interval between pregnancies affecting , antepartum ([facility]) Supervision of high risk in third trimester ([facility]) Hx of pre-eclampsia, prior , currently ([facility]) History of shoulder dystocia in prior Procedures OBSTETRIC ULTRASOUND WHI US PREG UTERUS AFTER 1ST TRIMEST GESTATION Nancy Lambert MD [address] [place] [address] Phone: tel: fax: [facility] [address] [place] [address] Referral ID Status Reason Start Date Expiration Date V isits Requested Visits Authorized [id number] Closed Auto-Generate d Referral 09/28/2024 09/28/2025 3 1 Reason Comments Breast Pump Reason Onset Date Comments Care 11/03/2024 Care Teams (unrecognized sec tion and content) Team Status: Active Member Role Status Dates No Primary Care Physician Family Provider Active No Primary Care Physician Primary Care Provider Active Team Status: Inactive Member Role Status Dates No Primary Care Physician Primary Care Provider Active Dr. Nancy Lambert MD Attending Provider Active Team Status: Inactive Member Role Status Dates No Primary Care Physician Primary Care Provider Active Dr. Yumiko Webb MD Attending Provider Ac tive Team Status: Inactive Member Role Status Dates No Primary Care Physician Primary Care Provider Active Elvira Guillory CNM Admit Provider, Atte nding Provider, Referring Provider Active Team Status: Inactive Member Role Status Dates No Primary Care Physician Primary Care Provider Active Dr. Barrett Byrne MD Emergency Provider Active Team Status: Inactive Member Role Status Dates No Primary Care Physician Primary Care Provider Active Dr. Barrett Byrne MD Attending Provider, Emergency Pr ovider Active Team Status: Inactive Member Role Status Dates No Primary Care Physician Primary Care Provider Active Dr. Kenton Smith DO Emergency Provider Active Team Status: Inactive Member Role Status Dates No Primary Care Physician Primary Care Provider Active Dr. Kylee Solis MD Attending Provider, Emergency Provider Active Team Status: Inactive Member Role Status Dates No Primary Care Physician Primary Care Provider Active Dr. Gaetano Boyer DO Emergency Provider Active Team Status: Inactive Member Role Status Dates No Primary Care Physician Primary Care Provider Active Dr. Gaetano Boyer DO Attending Provider, Emergency Pro vider Active Team Status: Inactive Member Role Status Dates No Primary Care Physician Primary Care Provider Active Dr. Kylee Solis MD Emergency Provider Active Team Status: Inactive Member Role Status Dates No Primary Care Physician Primary Care Provider Active Dr. Kylee Weiss MD Attending Provider, Referring Provider Active Team Status: Active Member Role Status Dates No Primary Care Physician Primary Care Provider Active Team Status: Inactive Member Role Status Dates No Primary Care Physician Primary Care Provider Active Start: April 30, 2024 End: April 30, 2024 Maxi Pete MD Attending Provider Active Star t: April 30, 2024 End: April 30, 2024 Maxi Pete MD Referring Provider Active Star t: April 30, 2024 End: April 30, 2024 Maxi Pete MD Emergency Provider Active Star t: April 30, 2024 End: April 30, 2024 Team Status: Inactive Member Role Status Dates No Primary Care Physician Primary Care Provider Active Start: June 09, 2024 End: June 09, 2024 Dr. Kenton Smith DO Emergency Provider Active Start: June 09, 2024 End: June 09, 2024 FOR RECORDS PERTAINING TO PATIENTS WHO ARE OR HAVE BEEN ENROLLED IN A CHEMICAL DEPENDENCY/SUBSTANCEABUSE PROGRAM, SOME INFORMATION MAY BE OMITTED. This clinical summary was aggregated from multiple sources. Caution should be exercised in using it in the provision of clinical care. This summary normalizes information from multiple sources, and as a consequence, information in this document may materially change the coding, format and clinical context of patient data. In addition, data may be omitted in some cases. CLINICAL DECISIONS SHOULD BE BASED ON THE PRIMARY CLINICAL RECORDS. [employer] provides no warranty or guarantee of the accuracy or completeness of information in this document.
[2024-11-09] MEDS: Lactated Ringers 1,000 ML 50 ML IV (04:00)
[2024-11-09] MEDS: Oxytocin 15 Units/NS 250ml 15 UNITS/250 ML IV.SOLN 2 UNITS IV (04:00)
[2024-11-09 04:12] LABS: Barbiturate Urine NEGATIVE (< 200 ng/mL); Benzodiazepine Urine NEGATIVE (< 200 ng/mL); PCP Urine NEGATIVE (< 25 ng/mL); THC Urine NEGATIVE (< 50 ng/mL)
[2024-11-09 04:19] LABS: Syphilis Antibodies Nonreactive (Nonreactive)
--- NOTE | 2024-11-09 05:25 | NURSING ---
Pt did not have a clean catch for the G and C lab test.
[2024-11-09] MEDS: Penicillin G Pot 5,000,000 UNITS in 0.9% Normal Saline (100mL MB+) 100 ML 150 UNITS IV (06:08)
--- NOTE | 2024-11-09 08:13 | PCM.PN.BLA ---
Progress Note pt resting comfortably in bed. VE 2/80/-2 AROM performed- clear fluid. Continue GBS prophylaxis. FHR cat 1, reactive. Continue pitocin
[2024-11-09] MEDS: Penicillin G 3,000,000 Units 50 ML 100 UNITS IV ×3 (10:14→19:34)
[2024-11-09] MEDS: 0.9% Saline Lock 10 ML Syringe IV (10:56)
[2024-11-09] MEDS: Lactated Ringers 1,000 ML 999 ML IV (11:41)
[2024-11-09] MEDS: fentaNYL-bupivacaine (epidural) 100 ML BAG EPIDURAL ×2 (12:27→16:53)
[2024-11-09] MEDS: Lactated Ringers 1,000 ML 200 ML IV ×2 (13:01→17:52)
[2024-11-09] MEDS: DiphenhydrAMINE 50 MG/ML Syringe IV (18:16)
--- NOTE | 2024-11-09 20:08 | EX.PCM.OBVAG ---
Vaginal Delivery Maternal Presentation Maternal Presentation: Medically Indicated Induction Maternal Presentation: gestational HTN Type of Induction: Pitocin and Amniotomy Medical Reason for Induction: Gestational Hypertension Vaginal Delivery Information Procedure Performed: Spontaneous Vaginal Delivery Surgeon/Practitioner: Yumiko Webb Date of Procedure: 11/09/24 Pre-Procedure Diagnosis: Gestational Hypertension , 38 weeks gestation, GBS + Post-Procedure Diagnosis: Same, Shoulder dystocia, live male Type of anesthesia: Epidural Estimated Blood Loss: 100 Time of Delivery: 19:50 Findings Description of procedure: Prior to patient being complete I evaluated the patient as she was still approximately 8 cm. During my exam baby's head felt asynclitic at this time gentle rotation of the head to the JOSH position. At this time patient progressed to fully dilated. With good maternal pushing efforts the head delivered recognize shoulder dystocia. At this time extra help was called. Legs were placed in the Joann position which did not relieve the shoulder dystocia. At this time suprapubic pressure from the maternal left was attempted without success of relieving the anterior shoulder. At this time I reached posteriorly as I felt there was more room and was unable to reach the posterior arm to sweep it out. At this time then the anterior shoulder was rotated gently anterior and posteriorly until the shoulder dystocia was relieved and the anterior shoulder delivered. I was cautious not to put extra traction on the fetus during delivery. Once the was delivered cord was immediately clamped and cut and the was taken to the stable at where attending peds admit nursery staff were available and resuscitation efforts were begun. At this time Cord gases were obtained. Pitocin was started. Placenta delivered intact without complication. I did not appear to have had any signs of abruption. Vagina and perineum were all intact. Presentation: Vertex Amniotic Membrane Rupture Type: Artificial Amniotic Fluid Description: Clear Placental Delivery Description: Spontaneous Placenta Disposition: [facility] Specimen collected: No Cord Vessel Description: 3 Vessels Cord Entanglement: None Cord Gases: ABG and VBG A Gender: Male Delayed Cord Clamping: No Paralegal Internship relief map modeler: Yes Sales Counselor: clari pritchett MS3 Tasks completed by commercial lending assistant: Retracting Post Vaginal Deli Medications given after delivery: IV Pitocin Episiotomy Description: None Laceration: None Complication Complications: Yes Complication Details: shoulder dystocia- 49 seconds- [facility], Suprapubic, attempted posterior arm sweep, Rotation of anterior shoulder
[2024-11-09] MEDS: Oxytocin 15 Units/NS 250ml 15 UNITS/250 ML IV.SOLN 83 UNITS IV (20:24)
[2024-11-10 02:04] VITALS: BP 127/78; PULSE 86; RESP 16; TEMP 37.1; O2SAT 97
[2024-11-10 04:15] VITALS: BP 124/74; PULSE 79; RESP 15; TEMP 36.9; O2SAT 98
[2024-11-10 07:30] VITALS: BP 140/90; PULSE 81; RESP 16; O2SAT 98
[2024-11-10 12:13] VITALS: BP 135/79; PULSE 67; RESP 16
[2024-11-10 16:20] VITALS: BP 137/90; PULSE 67; RESP 16
--- NOTE | 2024-11-10 18:27 | PCM.PN.CNM ---
Subjective Subjective Patient seen at bedside. Denies any pain. Ambulating and voiding without difficulty. Lochia decreasing. Denies headache, dizziness, SOB, or CP. Formula feeding. Objective Data Objective Data Vital Signs: Vital Signs Temp Pulse Resp BP Pulse Ox O2 Del Method 98.4 F 67 16 137/90 H 98 Room Air 11/10/24 04:15 11/10/24 16:20 11/10/24 16:20 11/10/24 16:20 11/10/24 07:30 11/10/24 07:30 Oxygen Delivery Method Room Air Weight: 193 lb 3.2 oz Body Mass Index (BMI) 32.1 Intake & Output: Intake and Output for Last 24 Hours 11/08/24 11/09/24 11/10/24 23:59 23:59 23:59 Intake Total 4252.50 / 4252.50 Output Total 100 / 100 700 / 700 Balance 4152.50 / 4152.50 -700 / -700 Lab / Micro Data Attestation: I reviewed the patient's lab results. 11/09/24 00:05 11/09/24 00:05 Micro: Microbiology 11/09/24 03:20 Urine, Clean Catch Chlamydia/Neisseria (PCR) - Final ROS Eyes Eyes: Denies blurry vision, change in vision or spots in vision ENT HEENT: Denies dizziness or headache(s) Cardiovascular Cardiovascular: Denies abdominal pain, chest pain or dyspnea Respiratory/Chest Respiratory/Chest: Denies cough, dyspnea, shortness of breath at rest or shortness of breath with exertion Gastrointestinal Gastrointestinal: Denies abdominal pain, diarrhea or vomiting Genitourinary Genitourinary: Denies change in urinary stream, difficulty urinating or dysuria Musculoskeletal Musculoskeletal: Reports none Integumentary Integumentary: Denies rash Neurologic Neurologic: Denies dizziness, headache(s), memory loss or weakness Physical Exam Const alert and no apparent distress General Appearance: cooperative and comfortable Exam Limitations: no limitations HEENT normocephalic Eyes General Eye: normal appearance of both eyes Neck full ROM General: normal visual inspection Chest Chest: symmetrical chest wall rise Resp normal respiratory effort and normal air movement Effort and Inspection: symmetric chest movement Auscultation: clear to auscultation bilaterally Cardio regular rate and regular rhythm GI normal to inspection, nondistended, normoactive bowel sounds Back/Spine normal ROM Extremity full ROM and no calf tenderness General Extremity: normal exam except as noted Skin no rashes or lesions noted Neuro oriented x3 Speech: speech normal Psych mental status grossly normal Thought Process: normal thought process Assessment & Plan (1) Gestational hypertension: COMMENT: no evidence of preeclampsia w/ severe features, prot:creat ratio normal. Monitor closely. D/w her r/b/a to induction of labor and she desires to proceed. (2) Shoulder dystocia, delivered: (3) (spontaneous vaginal delivery): PLAN: Plan PPD 1 with shoulder dystocia BP elevated : 137/90/ 135/79/ 140/90 Hx of GHTN- No severe ranges Will keep inpatient for 36 hours for monitoring Formula feeding Anticipate discharge home tomorrow evening
[2024-11-10 21:26] VITALS: BP 141/88; PULSE 90; RESP 16; TEMP 36.6; O2SAT 98
[2024-11-11 02:17] VITALS: BP 126/84; PULSE 85; RESP 16; TEMP 36.9; O2SAT 98
[2024-11-11 08:24] VITALS: BP 146/89; PULSE 89; RESP 16; TEMP 36.2
--- NOTE | 2024-11-11 08:39 | PCM.PN.OB ---
Subjective Subjective Denies complaints Objective Data Objective Data Vital Signs: Vital Signs Temp Pulse Resp BP Pulse Ox O2 Del Method 97.2 F L 89 16 146/89 H 98 Room Air 11/11/24 08:24 11/11/24 08:24 11/11/24 08:24 11/11/24 08:24 11/11/24 02:17 11/11/24 08:24 Oxygen Delivery Method Room Air Weight: 193 lb 3.2 oz Body Mass Index (BMI) 32.1 Intake & Output: Intake and Output for Last 24 Hours 11/09/24 11/10/24 11/11/24 23:59 23:59 23:59 Intake Total 4252.50 / 4252.50 Output Total 100 / 100 700 / 700 Balance 4152.50 / 4152.50 -700 / -700 Lab / Micro Data 11/09/24 00:05 11/09/24 00:05 Micro: Microbiology 11/09/24 03:20 Urine, Clean Catch Chlamydia/Neisseria (PCR) - Final Physical Exam Const alert, oriented x3 and no apparent distress HEENT normocephalic GI soft to palpation, non-tender and non-distended GI Narrative: fundus firm, mid & below umbilicus Extremity normal to inspection and no calf tenderness Assessment & Plan (1) Gestational hypertension: QUALIFIERS: Trimester: third trimester Qualified Code(s): O13.3 - Gestational [-induced] hypertension without significant proteinuria, third trimester COMMENT: PPD#1 PLAN: Plan Start labetalol 200mg tid for mildly elevated BP's. PreE labs normal on admission and patient asymptomatic. Possible d/c home tonight as patient would like to go if possible.
[2024-11-11 10:39] VITALS: BP 129/73
[2024-11-11 11:53] VITALS: BP 128/74; PULSE 75; RESP 17; TEMP 36.7
--- NOTE | 2024-11-11 13:01 | CASEMGMT ---
Social Work Assessment Labor and Delivery Unit Patient Address: [facility] [address] [place] [address] Phone number: [phone] Date of Referral: 11/09/24 Time of Referral:? 909 Referred By: Dr. Terri Soto Date of Intervention: ??11/11/24 Time of Intervention:? 5 Reason for Referral:? THC Sw completed chart review and acknowledges social work consult due to THC use. Sw presented to bedside and introduced self to mother of baby (MOB- Staci) and father of baby (FOB- Branden Beth). Sw explained reason for sw involvement, sw stated that sw remembers MOB from prior admission/ delivery. Sw completed psychosocial assessment. History obtained from: medical records, MOB and FOB Household composition: JOSE states that currently residing in her home is herself, her four prior children: Bere Alfredo (6), Emile Alfredo (3), Patel (2) and Alexander (1). baby to be included in residence when ready for discharge. JOSE states that FOB resides with her some of the time, but primarily lives with his mother. JOSE denies any problems or concerns with her home, stating that it is safe and secure. Patient's parent/guardian status:?JOSE states that she and FOB have known each other for a while, but started dating last February and got right away. Alta baby is first baby for FOB. No concerns reported of domestic violence or intimate partner violence. ? Medical History: ?JOSE is 24 year old female who is 7, para 4- now 5 following labor and delivery of . JOSE received routine care with [facility] routinely during . JOSE presented to hospital following rupture of membranes and delivered baby via vaginal delivery on 11/09/24 at 38 weeks gestation. Baby boy, named Sudarshan Alvarado, was born weighing 7lb 2oz with apgars of 5 and 8 at one and five minutes of life, respectfully. JOSE states that she is formula feeding baby and hoping to pump and feed baby at home. Ruth will be seen by Dr. Mccormack for pediatrics. Educational Status:? JOSE states that she graduated from high school, no concerns with reading, learning or comprehension. Financial Status: JOSE is employed by [employer]. 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 She is able to take 6 weeks off of work for maternity leave- and possibly more if she needs it. JOSE states that she enjoys her job and finds it to be rewarding, and is thankful for the benefits that it provides. Infant Supplies:??All necessary baby supplies obtained, including: car seat, safe sleep space, clothes, diapers and wipes Childcare/Caregiver(s):?JOSE states that she will be the primary caregiver to baby, and when she is working FOB will provide childcare. Transportation:??Both parents have their drivers license but they do not have transportation. When asked if this was a hardship for parents, JOSE denied, stating that she has multiple peopoe who are able to help her get where she needs to go, including work and doctor appointments. Programs/Agencies Involved: ???JOSE is connected to financial support provided through [employer] (insurance, SNAP) and WIC. Children Services/Legal Issues:?JOSE states that there were prior involvement with Children Services in 2018 and 2023 due to THC use, however those cases were closed after she met with the case management coordinator and they were not worried. ?? No issues or concerns warranting referral to be made at this time. Behavioral Health Issues: ??Mental Health History: LISA states that he has multiple mental health diagnoses including: schizophrenia, BiPolar, anxiety and depression. LISA states that he has gotten himself connected to mental health services and psychiatry at [facility]. He has a future appointment in December. JOSE denies mental health history. ??? Substance Use History:??MOB states that she has smoked marijuana in the past. MOB denies use prior to and during this . Family History:???Parents deny family history of addiction or significant mental health history. ?? Drug Screens: ??Urine drug screen at time of delivery was negative for all substances. Family/Social Stressors:? JOSE denies all stressors, concerns or issues at this time. JOSE states that she is frustrated that her blood pressure has spiked because she was anticipating the ability to go home today. Sw encouraged JOSE to listen to the medical providers and to stay admitted if they believe that is what is best for her medically. JOSE states that she understands. Support Systems: JOSE states that her mom and her first three children's father are her biggest supports ([employer]). Depression/Shaken Baby/Safe Sleeping:? Sw educated parents on signs and symptoms of baby blues and depression and anxiety. MOB states that she has never experienced signs or symptoms of those diagnoses. MOB states that she is always happy when she has her babies, and her older children keep her too busy to have time to worry about her mental health. MOB states that she does take her mental health seriously though, and if she were to struggle she feels comfortable talking to her mom about what she is going through. FOB states that if MOB were to struggle he would do his best to help and support her. Sw educated parents on shaken baby prevention and ABCs of safe sleep, parents express understanding. ASSESSMENT:? MOB and baby admitted following labor and delivery of . MOB with history of THC use, however denies any use prior to and during this . MOB's urine screen at time of delivery was negative for all substances. This is fifth baby for MOB, and with a third partner in 6 years. Sw encouraged MOB to listen to her body and to let her body rest and heal. MOB states that this delivery she experienced a shoulder dystocia and that really scared her. MOB states that she would like to have 6 children, but she wants to take a break and give herself some time before she has any more children. Sw educated MOB on risks of having children close in age and encouraged MOB to talk to her OBGYN about physically what happens to your body. MOB stated that preeclampsia is also really scary, and admits that her blood pressure going up is also not fun to experience when she is wanting to go home to be with the rest of her family. MOB was laying in bed comfortably and states that she remembers meeting with this sw'er when she had her last baby. FOBalaji was laying on couch sleeping, but then did participate in conversation. Baby was sleeping in bassinet, and when he awoke FOB got him up and comforted him. MOB and FOB both talkative and completed assessment with sw. Both parents were observed to hold baby lovingly and both report to having a ware with him. Parents have all necessary baby supplies and have natural supports in place. PLAN:? No other services requested or indicated. MOB and baby to be discharged when medically ready. Parents were provided literature regarding: signs and symptoms of baby blues and mood and anxiety disorders, Help Me Grow, shaken baby prevention, ABCs of safe sleep and a list of [facility] resources that are available for them should any needs present themselves. Xuan Wallace, RURAL CARRIER, PROJECT FACILITATOR
--- NOTE | 2024-11-11 13:15 | PCM.DC ---
Discharge Instructions DC O2, CPAP, BIPAP needs Home O2 Discharge instructions: No Dressing / Incision Discharge Activity: May Shower May resume sexual activity in: 6 weeks Dressing / Incision Call your doctor if your incision/area has: Continuous Slow Oozing, Sudden Increased Bleeding, Foul Smelling Discharge and Swelling at the incision site Call your doctor if you observe: Fever of 101 or Higher and Inability to urinate Follow Up Care Please Follow Up With: Yumiko Webb MD When: Follow up with our office1-3 days and 6 weeks or as needed. [phone] Test Results: Test results from this visit will be discussed in further detail at your follow-up appointment, if applicable. Discharge Plan Admission Admit Date/Time: 11/09/24 02:41 Attending Provider: Yumiko Webb Primary Care Provider: Care Physician,Kassi Primary Discharge Orders/Prescriptions Prescriptions: New labetalol 200 mg tablet 200 mg PO TID Qty: 60 0RF Continued ferrous sulfate [FeroSul] 325 mg (65 mg iron) tablet 325 mg PO DAILY 114-iron a-g-folate 1 20 mg iron- 1 mg tablet PO Discontinued metoclopramide HCl [Reglan] 5 mg tablet 5 mg PO Q6H Qty: 20 0RF aspirin 81 mg capsule 81 mg PO DAILY amoxicillin 500 mg capsule 500 mg PO TID 7 Days Qty: 21 0RF phenazopyridine [Pyridium] 200 mg tablet 200 mg PO TID 2 Days Qty: 6 0RF Referrals / Follow Up: Care Physician,No Primary [Primary Care Provider] - Disposition Disposition (needs filled in before D/C Order can be placed): Home, Self Care
--- NOTE | 2024-11-16 17:22 | NURSING ---
Follow up phone call made, no answer, left voicemail
== END 2024-11-11 13:50 | disposition home or self-care (01) | DRG 560 ==
LOC: WPOUT 02:55 → WP 02:55
PROVIDERS: Obstetrics & Gynecology; Admitting Provider Obstetrics & Gynecology; Referring Provider Obstetrics & Gynecology; Visit Provider Obstetrics & Gynecology
DX: O13.4 Gestational [pregnancy-induced] hypertension without significant proteinuria, complicating childbirth (principal); Z37.0 Single live birth; O66.0 Obstructed labor due to shoulder dystocia; O99.820 Streptococcus B carrier state complicating pregnancy; Z3A.38 38 weeks gestation of pregnancy; Z86.19 Personal history of other infectious and parasitic diseases; Z87.59 Personal history of other complications of pregnancy, childbirth and the puerperium; Z87.891 Personal history of nicotine dependence
CPT/HCPCS: 59025; 59050; 80307; 82565; 82570; 84156; 84450; 84460; 84550; 85027; 86780; 86850; 86900; 86901; 87491; 87591; 99221; A4216; G0378; J2405